=== PATIENT | female | born 1970 | race Caucasian/White ===

== ENCOUNTER 2017-11-03 08:30 | Outpatient (RCR) | payer OTHER, SELFPAY | END 2017-11-08 23:59 | LOC: DC 08:30 | PROVIDERS: Family Provider Preventive Medicine Occupational Medicine; PCP Preventive Medicine Occupational Medicine; Visit Provider Preventive Medicine Occupational Medicine | DX: E11.9 Type 2 diabetes mellitus without complications (principal); Z71.3 Dietary counseling and surveillance | CPT/HCPCS: 97802; G0108 ==

== ENCOUNTER 2018-01-22 11:00 | Outpatient (RCR) | payer OTHER, SELFPAY | END 2018-01-22 11:01 | LOC: DC 11:00 | PROVIDERS: Family Provider Preventive Medicine Occupational Medicine; PCP Preventive Medicine Occupational Medicine; Visit Provider Preventive Medicine Occupational Medicine | DX: E11.9 Type 2 diabetes mellitus without complications (principal); Z71.3 Dietary counseling and surveillance | CPT/HCPCS: 97803 ==

== ENCOUNTER → 2018-02-15 09:44 | Outpatient (CLI) | payer OTHER, SELFPAY ==
--- NOTE | 2018-02-15 09:44 | DT_ITS ---
This patient was seen during an EMR downtime February 12, 2018 - February 19, 2018. This patient may have a combination of paper and electronic documentation or all paper documentation. All documentation is viewable within the e-chart portion of [facility] for each patient visit.
--- NOTE | 2018-02-15 09:50 | RAD_ITS ---
STUDY: X-RAY - THORACIC SPINE REASON FOR EXAM: Female, 48 years old. pain mid to upper thoracic and to the right posteriorly x 1 month TECHNIQUE: 4 view(s) of the thoracic spine were obtained. COMPARISON: None. FINDINGS: Normal kyphosis of the thoracic spine. There is no substantial scoliosis. There is multilevel endplate spondylosis of the thoracic vertebrae. There is multilevel disc space narrowing of the thoracic spine. There are multiple metallic clips in the right upper quadrant. This is consistent for a cholecystectomy. The soft tissue structures are unremarkable. RAD/Thoracic Spine 3 Views IMPRESSION: Mild degenerative findings in the thoracic spine. No acute fractures. Electronically Signed: Bunny Vergara MD at 18:05 EDT , Service support ,
--- NOTE | 2018-02-15 09:54 | RAD_ITS ---
STUDY: X-RAY CHEST REASON FOR EXAM: Female, 48 years old. Mid upper thoracic pain TECHNIQUE: Frontal and lateral views of the chest. COMPARISON: None. FINDINGS: The lungs are clear and expanded. There is no demonstrated pleural abnormality. Normal size heart. Normal mediastinum and avis. Normal visualized pulmonary arteries. Normal visualized aortic arch and descending thoracic aorta. Normal visualized thoracic spine. Normal visualized ribs, clavicles, and shoulders. There is no demonstrated abnormality of the visualized soft tissue structures of the upper abdomen. RAD/Chest PA and Lateral IMPRESSION: Normal x-ray examination of the chest. Electronically Signed: Bunny Vergara MD at 18:05 EDT , Service support ,
[2018-02-20 03:37] LABS: BUN 13 mg/dL (7-18); BUN/Creat Ratio 13.3 RATIO (10-20); Creatinine, Serum 0.98 mg/dL (0.55-1.02); EST Glomerular Filtration Rate 64 mL/min (>60); Est Glom Filt Rate - Afr Amer 78 mL/min (>60); Glucose 119 mg/dL (74-106); Sodium Level 139 mmol/L (136-145)
[2018-02-20 03:38] LABS: Anion Gap 8 (5-15); Chloride 103 mmol/L (98-107); Potassium 3.7 mmol/L (3.5-5.1)
[2018-02-20 03:47] LABS: Hemoglobin A1c 6.9 % (4.2-6.3)
[2018-02-20 03:48] LABS: Color, Urine Yellow (Yellow); Glucose, Dipstick NEGATIVE (Normal); Ketone-Dipstick Negative (Negative); Leukocyte Esterase-Dipstick 25 /ul (Negative); Nitrite-Dipstick Negative (Negative); Occult Blood-Urine Negative /ul (Negative); Protein-Dipstick 30 mg/dl (Negative); Urine Bilirubin Dipstick Negative (Negative); Urine Clarity Clear (Clear); Urine Urobilinogen Normal (Normal)
== END ==
PROVIDERS: Family Provider Family Medicine; PCP Family Medicine; Visit Provider Family Medicine
DX: R07.9 Chest pain, unspecified (principal); M54.9 Dorsalgia, unspecified; E11.9 Type 2 diabetes mellitus without complications; N39.0 Urinary tract infection, site not specified
CPT/HCPCS: 71046; 72072; 80048; 81002; 83036

== ENCOUNTER 2018-02-21 17:08 | Outpatient (RCR) | payer OTHER, SELFPAY | END 2018-03-10 23:59 | LOC: DC 17:08 | PROVIDERS: Family Provider Family Medicine; PCP Family Medicine; Visit Provider Preventive Medicine Occupational Medicine | DX: E11.9 Type 2 diabetes mellitus without complications (principal); Z71.3 Dietary counseling and surveillance ==

== ENCOUNTER → 2018-02-22 12:35 | Outpatient (CLI) | payer OTHER, SELFPAY | PROVIDERS: Family Provider Family Medicine; PCP Family Medicine; Visit Provider Family Medicine | DX: R35.8 Other polyuria (principal) | CPT/HCPCS: 87086; 87088; 87186 ==

== ENCOUNTER → 2018-02-28 13:47 | Outpatient (CLI) | payer OTHER, SELFPAY ==
[2018-02-28 13:54] LABS: Bacteria 0 SEEN /hpf (None Seen); Red Blood Cells-Urine 0 SEEN /hpf (0-5); White Blood Cells 0 SEEN /hpf (0-5)
[2018-02-28 14:30] LABS: Color, Urine Yellow (Yellow); Glucose, Dipstick Normal (Normal); Ketone-Dipstick Negative (Negative); Leukocyte Esterase-Dipstick Negative /ul (Negative); Nitrite-Dipstick Negative (Negative); Occult Blood-Urine Negative /ul (Negative); Protein-Dipstick Negative (Negative); Specific Gravity, Urine 1.015 (1.002-1.030); Urine Bilirubin Dipstick Negative (Negative); Urine Clarity Clear (Clear); Urine Urobilinogen Normal (Normal)
[2018-02-28 14:43] LABS: Mucous, Urine 0 SEEN /hpf (<or=2+)
[2018-02-28 14:45] LABS: Squamous Epithelial Cells - UA 5-10 SEEN /hpf (5-10)
== END ==
PROVIDERS: Family Provider Family Medicine; PCP Family Medicine; Visit Provider Family Medicine
DX: N39.0 Urinary tract infection, site not specified (principal); R30.0 Dysuria
CPT/HCPCS: 36415; 81001; 87086; 87088

== ENCOUNTER 2018-03-21 16:06 | Outpatient (RCR) | payer OTHER, SELFPAY | END 2018-04-10 23:59 | LOC: DC 16:06 | PROVIDERS: Family Provider Family Medicine; PCP Family Medicine; Visit Provider Preventive Medicine Occupational Medicine | DX: E11.9 Type 2 diabetes mellitus without complications (principal); Z71.3 Dietary counseling and surveillance ==

== ENCOUNTER → 2018-03-30 13:39 | Outpatient (CLI) | payer OTHER, SELFPAY ==
--- NOTE | 2018-03-30 13:42 | US_ITS ---
STUDY: RENAL ULTRASOUND - COMPLETE REASON FOR EXAM: Female, 48 years old. Flank pain and recurrent UTI. TECHNIQUE: Ultrasound evaluation of the kidneys was performed with real-time and static nelson-scale imaging. COMPARISON: None. FINDINGS: RIGHT KIDNEY: Normal location of the right kidney, which is normal in size. The right kidney measures 10.2 x 5.8 x 4.9 cm. There is a normal cortex of the right kidney. The renal cortex measures 1.3 cm. There is no right renal mass or cyst. There are no right renal calculi. There is no right hydronephrosis. DISTAL RIGHT URETER: There is non-visualization of the distal right ureter. There is a visualized right ureteral jet. LEFT KIDNEY: Normal location of the left kidney, which is normal in size. The left kidney measures 10.8 x 4.2 x 5.8 cm. There is a normal cortex of the left kidney. The renal cortex measures 1.4 cm. There is no left renal mass or cyst. There are no left renal calculi. There is no left hydronephrosis. DISTAL LEFT URETER: There is non-visualization of the distal left ureter. There is a visualized left ureteral jet. BLADDER: The distended urinary bladder has a volume of 264 ml. There is a normal wall thickness of the distended urinary bladder. There is no demonstrated mass within the urinary bladder. There are no demonstrated bladder calculi. US/Kidney and Bladder IMPRESSION: Normal ultrasound of the kidneys and urinary bladder. Electronically Signed: Marga Esteban MD at 23:50 EDT , Service support ,
[2018-03-30 14:06] LABS: Bacteria 0 SEEN /hpf (None Seen); Mucous, Urine 0 SEEN /hpf (<or=2+); Red Blood Cells-Urine 0 SEEN /hpf (0-5); White Blood Cells 0 SEEN /hpf (0-5)
[2018-03-30 15:18] LABS: Color, Urine Yellow (Yellow); Glucose, Dipstick Normal (Normal); Ketone-Dipstick Negative (Negative); Leukocyte Esterase-Dipstick Negative /ul (Negative); Nitrite-Dipstick Negative (Negative); Occult Blood-Urine Negative /ul (Negative); Protein-Dipstick Negative (Negative); Urine Bilirubin Dipstick Negative (Negative); Urine Clarity Clear (Clear); Urine Urobilinogen Normal (Normal); Urine pH 6.5 (5.0 - 8.0)
[2018-03-30 15:25] LABS: Squamous Epithelial Cells - UA 5-10 SEEN /hpf (5-10)
== END ==
PROVIDERS: Family Provider Family Medicine; PCP Family Medicine; Visit Provider Family Medicine
DX: N39.0 Urinary tract infection, site not specified (principal)
CPT/HCPCS: 76770; 81001

== ENCOUNTER → 2018-06-29 07:55 | Outpatient (CLI) | payer OTHER, SELFPAY ==
--- NOTE | 2018-06-29 07:57 | BI_ITS ---
MAMMOGRAPHY - BILATERAL SCREENING REASON FOR EXAM: Female, 48 years old. Routine annual screening examination. PERTINENT HISTORY: Non-contributory. TECHNIQUE: Digital bilateral breast elizabeth (3D mammographic acquisition) in the CC and MLO projections. 2-D mediolateral oblique (MLO) and craniocaudad (CC) views of both breasts were obtained. CAD: Full Field Digital Mammography with Computer Added Detection was performed. COMPARISON: Comparison is made with prior study dated June 17, 2017 and February 24, 2015. FINDINGS: Breast Composition: The breasts are heterogeneously dense, which may obscure small masses. There are no dominant masses or suspicious calcifications. Stable small bilateral axillary lymph nodes. No other significant abnormalities are identified. There has been no significant change since the prior study. BI/SCREENING MAMM (CAD), BILAT IMPRESSION: Stable bilateral screening mammogram. Yearly follow-up mammogram recommended. (A) ASSESSMENT CATEGORY: BIRADS Category 2: Benign. A letter regarding these results will be sent to the patient by the facility within 30 days. Approximately 10% of breast cancers are not detected by mammography. A normal mammogram should not delay biopsy of a clinically suspicious abnormality. [id number] Electronically Signed: Raul Dodge MD at 11:20 EDT Tel [phone], Service support ,
== END ==
PROVIDERS: Family Provider Family Medicine; PCP Family Medicine; Visit Provider Obstetrics & Gynecology
DX: Z12.31 Encounter for screening mammogram for malignant neoplasm of breast (principal)
CPT/HCPCS: 77063; 77067

== ENCOUNTER → 2018-08-14 15:22 | Outpatient (CLI) | payer OTHER, SELFPAY ==
[2018-06-19 16:20] VITALS: BMI 40.7
--- NOTE | 2018-08-14 15:25 | RAD_ITS ---
STUDY: X-RAY - RIGHT SHOULDER REASON FOR EXAM: Female, 48 years old. Chronic shoulder pain. TECHNIQUE: 3 view(s) of the shoulder. COMPARISON: None. FINDINGS: Normal glenohumeral articulation. Normal acromioclavicular joint. Normal acromion. Normal humeral head and visualized proximal humerus. The soft tissue structures are unremarkable. There is no demonstrated fracture. Normal visualized pulmonary apex. RAD/Shoulder min 2 Views IMPRESSION: Normal x-ray examination of the shoulder. Electronically Signed: Brendan Mccann MD at 16:44 EST , Service support ,
== END ==
PROVIDERS: Family Provider Family Medicine; PCP Family Medicine; Referring Provider Orthopaedic Surgery; Visit Provider Orthopaedic Surgery
DX: M25.511 Pain in right shoulder (principal)
CPT/HCPCS: 73030

== ENCOUNTER 2018-09-20 18:00 | Outpatient (RCR) | payer OTHER, SELFPAY ==
--- NOTE | 2018-08-24 08:23 | HP.PTEVAL ---
Patient's Visit Information GABRIEL WADE is a 48 year old F referred to Physical Therapy by Domonique Hoang DO with a diagnosis of R shoulder impingement. Date of Evaluation: 08/24/18 Physical Therapist: Bunny Sosa PT, ATC - Visit Plan Frequency: 2-3x /Week Duration: 4 Weeks Plan: R shoulder strengthening (rot cuff), scap stab ex's, UBE, and HEP - Subjective Findings: Pt reports her R shoulder has been sore for months. Pt reports her pain eventually became so sore that she couldnt sleep. Pt reports her pain haed an insidious onset in nature. 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 Pt reports she had an injection about a week ago in her R shoulder which did decrease her pain, but she is still sore. Pt is R hand dominant. Pt reports reaching behind her back and lifing objects with R UE increases her pain. Pt still has sleep difficulty at this time. Occasional tingling and numbness in L UE. Pt reports she did have xrays, but stated nothing was wrong. - Pain R shoulder pain Pain Intensity (Out of 10): 2 Pain Intensity Range: 3 - Objective Neuro: B UE sensation is WNL to light touch. B bicepital reflex= 2/3. Palpation: Pt is tender along the supraspinatus and bicepital reflex. ROM: R shoulder flex= 160, abd= 175, ER= 80, IR WNL; R shoulder flex= 140, abd= 125, ER= 60, IR moderately limited. MMT: R shoulder flexion and ER= 4-/5. All other B UE MMT= 5/5 throughout. Special testing: Pos empty can test and HK sign - Goals Goal 1:: Decrease R shoulder pain x 50% to aid with sleep Goal Time Frame: 2-4 Weeks Goal 2:: Increase R shoulder strength x 1 grade to aid with IADL's Goal Time Frame: 2-4 Weeks Goal 3:: Increase R shoulder ROM flexion and abduction x 15-20 degrees to aid with overhead lifting Goal Time Frame: 2-4 Weeks Goal 4:: I with HEP Goal Time Frame: 2-4 Weeks - Rehabilitation Potential Physical Therapy Diagnosis: R shoulder pain, weakness, and limited ROM secondary to R shoulder impingement syndrome Rehabilitation Potential: Good - Anticipated Interventions Patient/Client Instruction: Educate patient on: Condition, Plan of Care For the Purpose of:: To improve self management Therapeutic Exercise to Include: Strength training, Endurance training, Postural training, Active ROM, Scapular Strength/Stabilization For the Purpose of:: To decrease pain, To increase ROM, To improve muscle performance and motor function Cryotherapy (ice pack, ice massage): Yes For the Purpose of:: To decrease pain Thank you for the opportunity to evaluate your patient. For Medicare and Medicare HMO plans, please review the plan of care and approve it. It will need to be FAXED BACK to us at [phone] for Medicare purposes. For Medicare only, by signing this I certify the plan of care. Please let me know if there are questions or concerns regarding this plan of care. Physician Signature: Date:
--- NOTE | 2018-11-27 16:46 | HP.PT.NRP ---
HP - Discharge Summary (1) - Patient Information GABRIEL WADE was seen in my office for initial evaluation on 08/24/18. The following Plan of Care was established for this patient: Initial Frequency: 2-3x /Week Initial Duration: 4 Weeks - Anticipated Interventions Patient/Client Instruction: Educate patient on: Condition, Plan of Care For the Purpose of:: To improve self management Therapeutic Exercise to Include: Strength training, Endurance training, Postural training, Active ROM, Scapular Strength/Stabilization For the Purpose of:: To decrease pain, To increase ROM, To improve muscle performance and motor function Cryotherapy (ice pack, ice massage): Yes For the Purpose of:: To decrease pain This patient was last seen in our office . Pertinent comments regarding their Physical therapy will appear below: Pt has treated for 7 PT visits through the date of 09/20/18 for her pain. pt has not returned through todays date, and is therefore discontinued at this time At this point I will be discontinuing this patient from physical therapy. I would be happy to see this patient again in the future if found appropriate by the physician. Thank you! Bunny Sosa, PT, ATC
== END 2018-09-20 19:00 | disposition home or self-care (01) ==
LOC: PT 18:00
PROVIDERS: Family Provider Family Medicine; PCP Family Medicine; Referring Provider Orthopaedic Surgery; Visit Provider Orthopaedic Surgery
DX: M75.101 Unspecified rotator cuff tear or rupture of right shoulder, not specified as traumatic (principal); M75.21 Bicipital tendinitis, right shoulder; M75.41 Impingement syndrome of right shoulder
CPT/HCPCS: 97110; 97162

== ENCOUNTER → 2018-12-03 07:20 | Outpatient (CLI) | payer OTHER, SELFPAY ==
[2018-11-19 08:25] VITALS: BMI 39.3
--- NOTE | 2018-12-03 07:23 | MRI_ITS ---
STUDY: MRI RIGHT SHOULDER REASON FOR EXAM: Right shoulder/arm pain with limited range of motion for more than 6 months. TECHNIQUE: Standardized fat and water weighted pulse sequences were obtained in all 3 orthogonal planes. COMPARISON: Radiographs 08/14/2018. FINDINGS: There is supraspinatus tendinosis and a small full-thickness tear of the distal anterior supraspinatus tendon (T2 coronal image 14; T2 sagittal image 9) measuring approximately 0.3 cm in length and width with mild delamination (T2 coronal image 13). Normal infraspinatus tendon. Normal subscapularis tendon. Normal teres minor tendon. Normal supraspinatus muscle. Normal infraspinatus muscle. Normal subscapularis muscle. Normal teres minor muscle. There is a small glenohumeral joint effusion. There is a small cyst in the anterior aspect of the greater tuberosity. Normal biceps labral complex. Normal intracapsular long biceps tendon. Normal labrum. Normal capsulo- ligamentous complex. Normal acromioclavicular articulation. There is a Type II morphology (curved), with a neutral orientation. There is a small volume of subacromial-subdeltoid bursal fluid. Normal visualized coracohumeral and coracoacromial ligaments. Normal deltoid muscle. Normal trapezius muscle. MRI/Upper Ext Joint Only(Routine) IMPRESSION: Small full-thickness tear and tendinosis of the supraspinatus tendon. Glenohumeral joint fluid communicating with the subacromial-subdeltoid bursa. Electronically Signed: Power Cole MD at 10:52 EDT Tel , Service support ,
== END ==
PROVIDERS: Family Provider Family Medicine; PCP Family Medicine; Referring Provider Physician Assistant; Visit Provider Physician Assistant
DX: M25.511 Pain in right shoulder (principal)
CPT/HCPCS: 73221

== ENCOUNTER → 2018-12-07 14:54 | Outpatient (CLI) | payer OTHER, SELFPAY ==
[2018-11-19 08:25] VITALS: BMI 39.3
--- NOTE | 2018-12-07 14:56 | VDUE_ITS ---
Reason For Study: RUE pain/swelling Right Proximal Right jugular vein is spontaneous, widely patent, phasic, with no intraluminal echogenicity noted. Right subclavian vein is spontaneous, widely patent, phasic, with no intraluminal echogenicity noted. Right Lower Arm Right radial vein is compressible. Right ulnar vein is compressible. Right Arm Right axillary vein is spontaneous, patent, phasic, competent, compressible and demonstrates augmentation. Right brachial vein is compressible. Right cephalic vein is compressible. Right basilic vein is compressible. Interpretation Summary No evidence for acute deep venous thrombosis[right] upper extremity with patent and compressible cephalic and basilic veins. Ordering Physician: Juaquin Nuñez Referring Physician: Andre Acevedo M.D. Performed By: Karen Haque RVT ?
== END ==
PROVIDERS: Family Provider Family Medicine; PCP Family Medicine; Referring Provider Physician Assistant; Visit Provider Physician Assistant
DX: M79.89 Other specified soft tissue disorders (principal)
CPT/HCPCS: 93971

== ENCOUNTER → 2019-01-17 | Outpatient (CLI) | payer OTHER, SELFPAY ==
[2019-01-17 13:24] VITALS: BMI 39.3
--- NOTE | 2019-01-17 14:24 | RAD_ITS ---
STUDY: X-RAY - RIGHT HUMERUS REASON FOR EXAM: Right humeral pain and upper extremity edema, no specific injury. TECHNIQUE: 2 view(s) of the humerus. COMPARISON: None. FINDINGS: Normal visualized humerus. There is no demonstrated fracture or osseous destructive process. There is no demonstrated soft tissue abnormality. RAD/Humerus min 2 Views IMPRESSION: Normal x-ray examination of the right humerus. Electronically Signed: Power Cole MD at 15:22 EDT Tel , Service support ,
--- NOTE | 2019-01-17 14:37 | RAD_ITS ---
STUDY: X-RAY CHEST REASON FOR EXAM: Female, 48 years old. Chest pain, upper extremity edema TECHNIQUE: PA and lateral views of the chest. COMPARISON: 02/15/2018 FINDINGS: The lungs are clear and expanded. There is no demonstrated pleural abnormality. Normal size heart. Normal mediastinum and avis. Normal visualized pulmonary arteries. Normal visualized aortic arch and descending thoracic aorta. Normal visualized thoracic spine. Normal visualized ribs, clavicles, and shoulders. There is no demonstrated abnormality of the visualized soft tissue structures of the upper abdomen. RAD/Chest PA and Lateral IMPRESSION: Normal x-ray examination of the chest. Electronically Signed: Eric Villavicencio MD at 15:41 EDT , Service support ,
== END | disposition home or self-care (01) ==
LOC: HPRAD 14:19
PROVIDERS: Family Provider Family Medicine; PCP Family Medicine; Referring Provider Orthopaedic Surgery; Visit Provider Orthopaedic Surgery
DX: R60.0 Localized edema (principal); M79.89 Other specified soft tissue disorders
CPT/HCPCS: 71046; 73060

== ENCOUNTER → 2019-01-18 | Outpatient (CLI) | payer OTHER, SELFPAY ==
[2019-01-17 13:24] VITALS: BMI 39.3
--- NOTE | 2019-01-18 16:31 | US_ITS ---
STUDY: SUPERFICIAL ULTRASOUND - SOFT TISSUES, RIGHT AXILLA REASON FOR EXAM: Female, 48 years old. Right axillary swelling, right arm swelling, 8 months TECHNIQUE: A superficial ultrasound was performed with real-time and static santana-scale imaging. COMPARISON: None. FINDINGS: Normal sonographic features of the axillary soft tissues. There is no mass, lymphadenopathy or fluid collection. There is no apparent soft tissue edema. On color Doppler imaging there is no apparent hyperemia in the soft tissues. US/Ext Non Vasc Limited/Soft Tiss IMPRESSION: Normal sonographic features of the axillary soft tissues. Electronically Signed: Niles Carrillo MD at 17:52 EDT Tel , Service support ,
[2019-01-18 17:28] LABS: Absolute Lymphocyte Count 2.44 X10^3/ul (0.83-4.51); Absolute Neutrophil Count 8.2 X10^3/uL (2.0-7.7); Basophil# 0.01 X10^3/uL; Basophil% 0.1 % (0-1); Eosinophil# 0.11 X10^3/uL; Hematocrit 42.7 % (37-47); Hemoglobin 14.1 g/dl (12.0-15.0); Lymphocyte # 2.44 X10^3/ul (4.0); Lymphocyte % 21.6 % (19-41); Mean Corpuscular Hgb 28.2 pg (27.0-32.0); Mean Corpuscular Volume 85.4 fL (81-99); Mean Platelet Vol. 11.5 fl (6.2-12.0); Monocyte# 0.55 X10^3/uL; Monocyte% 4.9 % (0-10); Neutrophil # 8.19 X10^3/uL (2.7-7.7); Neutrophil % 72.2 % (47-70); Platelet Count 277 K/mm3 (150-450); RBC Distribution Width CV 13.1 % (11.6-14.6); RBC Distribution Width SD 40.9 fl (35.1-43.9); White Blood Count 11.3 K/mm3 (4.4-11.0)
[2019-01-18 17:29] LABS: POSITIVE COUNT NO; POSITIVE DIFFERENTIAL NO; POSITIVE MORPHOLOGY NO
[2019-01-18 17:36] LABS: Erythrocyte Sedimentation Rate 24 mm/hr (0-20)
[2019-01-18 18:07] LABS: ALB/GLOB Ratio 0.9 RATIO (0.9-2.4); AST(SGOT) 15 U/L (15-37); Alanine Aminotransfer ALT/SGPT 56 U/L (13-56); Albumin, Serum 3.7 g/dL (3.2-5.0); Alkaline Phosphatase 66 U/L (45-117); Anion Gap 7 (5-15); BUN 11 mg/dL (7-18); BUN/Creat Ratio 11.6 RATIO (10-20); Chloride 104 mmol/L (98-107); Creatinine, Serum 0.95 mg/dL (0.55-1.02); EST Glomerular Filtration Rate 66 mL/min (>60); Est Glom Filt Rate - Afr Amer 80 mL/min (>60); Glucose 137 mg/dL (74-106); Potassium 3.2 mmol/L (3.5-5.1); Protein, Total 7.7 g/dL (6.4-8.2); Sodium Level 140 mmol/L (136-145); T4 Free Direct 1.09 ng/dL (0.76-1.46)
== END | disposition home or self-care (01) ==
PROVIDERS: Orthopaedic Surgery; Family Provider Family Medicine; PCP Family Medicine; Referring Provider Internal Medicine; Visit Provider Internal Medicine
DX: M79.89 Other specified soft tissue disorders (principal)
CPT/HCPCS: 36415; 76882; 80053; 84439; 84443; 85025; 85652; 86140

== ENCOUNTER → 2019-01-30 | Outpatient (CLI) | payer OTHER, SELFPAY ==
[2019-01-24 10:43] VITALS: BMI 39.3
--- NOTE | 2019-01-30 09:22 | US_ITS ---
STUDY: ULTRASOUND BREAST - RIGHT REASON FOR EXAM: Female, 49 years old. Palpable lump in the right breast. TECHNIQUE: Axial and longitudinal images of the RIGHT breast were performed with a high resolution ultrasound transducer. COMPARISON: Comparison is made with prior mammogram done earlier today. FINDINGS: RIGHT Breast: In the upper outer quadrant of the right breast, there are 3 subcentimeter slightly echogenic well-defined nodular densities. The largest measures 7 mm x 7 mm x 6 mm. These most likely represent lipomas. IMPRESSION: Findings in keeping with the 3 well-defined subcentimeter lipomas in the upper outer quadrant of the right breast. ASSESSMENT CATEGORY: BIRADS Category 2: Benign. A letter regarding these results will be sent to the patient by the facility within 30 days. Electronically Signed: Raul Dodge, at 13:05 EDT , Service support , STUDY: ULTRASOUND BREAST - LEFT REASON FOR EXAM: Female, 49 years old. Palpable lump left breast. TECHNIQUE: Axial and longitudinal images of the LEFT breast were performed with a high resolution ultrasound transducer. COMPARISON: Comparison is made with prior mammogram done earlier today. FINDINGS: LEFT Breast: There is a 5 mm x 7 mm x 5 mm well-defined hypoechoic nodule in the upper outer quadrant of the left breast. Adjacent to this, a similar appearing nodule is seen measuring 6 mm x 5 mm x 3 mm. These most likely represent lipomas. US/Breast Limited Unilateral IMPRESSION: Findings in keeping with that to subcentimeter lipomas in the upper aspect of the left breast. ASSESSMENT CATEGORY: BIRADS Category 2: Benign. A letter regarding these results will be sent to the patient by the facility within 30 days. Electronically Signed: Raul Dodge, at 13:06 EDT , Service support ,
--- NOTE | 2019-01-30 09:22 | BI_ITS ---
MAMMOGRAPHY - BILATERAL DIAGNOSTIC REASON FOR EXAM: Female, 49 years old. Right axillary breast pain and swelling. PERTINENT HISTORY: Non-contributory. TECHNIQUE: Digital bilateral breast elizabeth (3D mammographic acquisition) in the CC and MLO projections. 2-D mediolateral oblique (MLO) and craniocaudad (CC) views of both breasts were obtained. CAD: Full Field Digital Mammography with Computer Added Detection was performed. COMPARISON: Comparison is made with prior examination dated June 29, 2018 and June 17, 2007. FINDINGS: Breast Composition: The breasts are heterogeneously dense, which may obscure small masses. There are no dominant masses or suspicious calcifications. Stable small benign-appearing bilateral axillary lymph nodes. No other significant abnormalities are identified. There has been no significant change since the prior study. BI/DIAG MAMM W/CAD, BILAT IMPRESSION: Stable bilateral diagnostic mammogram. With the patient's history of a right axillary pain and swelling, correlation with ultrasound is recommended. ASSESSMENT CATEGORY: BIRADS Category 0: Incomplete. Need additional imaging evaluation. A letter regarding these results will be sent to the patient by the facility within 30 days. Approximately 10% of breast cancers are not detected by mammography. A normal mammogram should not delay biopsy of a clinically suspicious abnormality. Electronically Signed: Raul Dodge, at 11:21 EDT , Service support ,
== END | disposition home or self-care (01) ==
PROVIDERS: Family Provider Family Medicine; PCP Family Medicine; Referring Provider Obstetrics & Gynecology; Visit Provider Obstetrics & Gynecology
DX: N63.31 Unspecified lump in axillary tail of the right breast (principal); N63.21 Unspecified lump in the left breast, upper outer quadrant
CPT/HCPCS: 76642; 77062; 77066; G0279

== ENCOUNTER → 2019-01-31 | Outpatient (CLI) | payer OTHER, SELFPAY ==
[2019-01-24 10:43] VITALS: BMI 39.3
--- NOTE | 2019-01-31 06:34 | MRI_ITS ---
STUDY: MRI UPPER EXTREMITY RIGHT HUMERUS WITHOUT CONTRAST REASON FOR EXAM: Right arm swelling, no specific injury. TECHNIQUE: Standardized fat and water weighted pulse sequences were obtained in all 3 orthogonal planes. COMPARISON: Radiographs 01/17/2019 and MRI images the shoulder 12/03/2018. FINDINGS: Normal subcutis adipose space. There is no demonstrated solid, cystic, or lipomatous mass within the subcutaneous adipose space. There is a benign appearing lymph node in the right axilla measuring 1.4 cm in greatest dimension with central fat replacement (T1 axial image 14). Normal visualized muscles and fascia. Normal visualized neurovascular bundles. There is a small cyst in the anterior aspect of the greater tuberosity (inversion recovery axial image 3). Otherwise, unremarkable humerus. MRI/Upper Ext/No Jt/ wo IMPRESSION: Benign appearing lymph node in the right axilla. Small cyst in the anterior aspect of the greater tuberosity. Otherwise, unremarkable MRI of the right humerus. Electronically Signed: Power Cole MD at 8:49 EDT Tel , Service support ,
== END | disposition home or self-care (01) ==
LOC: MRI 06:33
PROVIDERS: Family Provider Family Medicine; PCP Family Medicine; Referring Provider Physician Assistant; Visit Provider Physician Assistant
DX: M75.81 Other shoulder lesions, right shoulder (principal); M79.89 Other specified soft tissue disorders; M75.21 Bicipital tendinitis, right shoulder
CPT/HCPCS: 73218

== ENCOUNTER → 2019-02-14 | Outpatient (CLI) | payer OTHER, SELFPAY ==
[2019-02-13 15:39] VITALS: BMI 40.1
--- NOTE | 2019-02-14 13:37 | VDUE_ITS ---
Reason For Study: Swelling Right Proximal Right jugular vein is spontaneous, widely patent, phasic, with no intraluminal echogenicity noted. Right subclavian vein is spontaneous, widely patent, phasic, with no intraluminal echogenicity noted. Right Lower Arm Right radial vein is compressible. Right ulnar vein is compressible. Right Arm Right axillary vein is spontaneous, patent, phasic, competent, compressible and demonstrates augmentation. Right brachial vein is compressible. Right cephalic vein is compressible. Right basilic vein is compressible. Patient Safety Prelim to Sarthak. Interpretation Summary No evidence for acute deep venous thrombosis[right] upper extremity with patent and compressible cephalic and basilic veins. Ordering Physician: Anthony De León Referring Physician: Andre Acevedo M.D. Performed By: Denisha Cardoza RVT ?
--- NOTE | 2019-02-14 14:04 | CT_ITS ---
STUDY: CT CHEST WITH CONTRAST REASON FOR EXAM: Female, 49 years old. Chronic swelling of the right upper extremity. RADIATION DOSAGE (If Supplied By Facility): CTDIvol = ( 13.40 ) mGy, DLP = ( 728.33 ) mGycm TECHNIQUE: Transaxial imaging was performed following intravenous administration of 100ml IV Isovue 370. Multiplanar coronal and sagittal images were reformatted. Individualized dose optimization techniques were used for this CT. COMPARISON: None. FINDINGS: Small bilateral axillary lymph nodes. The lungs are normal. There is no demonstrated pleural abnormality. Normal heart and pericardium. Normal mediastinum. Normal hilar regions. Normal enhanced pulmonary arteries. Normal aorta arch and descending thoracic aorta. Normal osseous structures. Diffuse fatty infiltration of the liver. Prior cholecystectomy. CT/Chest WITH Contrast IMPRESSION: No acute abnormalities Electronically Signed: Raul Dodge, at 15:07 EDT , Service support ,
== END | disposition home or self-care (01) ==
PROVIDERS: Family Provider Family Medicine; PCP Family Medicine; Referring Provider Surgery; Visit Provider Surgery
DX: M79.89 Other specified soft tissue disorders (principal)
CPT/HCPCS: 71260; 93971; Q9967

== ENCOUNTER 2019-02-27 05:59 | Day surgery (SDC) | payer OTHER, SELFPAY ==
[2019-02-07 16:30] VITALS: BMI 40.1
[2019-02-13 15:39] VITALS: BMI 40.1
--- NOTE | 2019-02-26 15:19 | HP.PCM_ITS ---
History and Physical I have re-examined the patient. There are no clinical changes since date of exam. Intake Vital Signs 02/07/19 Body Mass Index (BMI) 40.1 Intake Visit Reasons: R. SHOULDER Chief Complaint: FU - Testing & saw Dr Lewis Allergies metoclopramide [From Reglan] Adverse Reaction (Verified 01/31/19 15:07) NIGHTMARES Medications hydrochlorothiazide 25 mg tablet 25 mg PO DAILY #90 tab 10/18/18 [Rx Confirmed 01/31/19] lorazepam 0.5 mg tablet 0.5 mg PO BID-TID PRN #7 tab 11/07/18 [Rx Confirmed 01/31/19] dulaglutide 1.5 mg/0.5 mL subcutaneous pen injector 1.5 mg SC QWEEK #2 ml 12/16/18 [Rx Confirmed 01/31/19] PFSH Medical History Family history of colon cancer (Acute) Polyuria (Chronic) Cough (Acute) Vertigo (Acute) Dizziness (Chronic) Menorrhagia (Chronic) Bronchitis (Chronic) Hypertension (Chronic) Fear of flying (Chronic) Type 2 diabetes mellitus (Chronic) History of hysterectomy (Acute) Surgical History History of cholecystectomy (Acute) History of tubal ligation (Acute) Family History Father Hypertension Grandmother Heart disease Grandfather Colon cancer Uncle Colon cancer Aunt Diabetes Social History Smoking Status: Never smoker alcohol intake: current alcohol intake frequency: holidays/special occasions only HPI R. SHOULDER: Details: Parts of this documentation were recorded by a scribe, this docume ntation accurately reflects the service provided and the decisions made by me, Domonique Hoang, 02/07/19 1548. GABRIEL WADE is a 49 year old F here today for right shoulder. Patient had MRI on 01/31/19. Denies any changes. Continues to have shoulder pain and limited ROM. Continues to have itching under are arms. Continues to have swelling. Patient returned to her PCP and then was referred to Dr. Lewis for a 2nd opinion. Dr. Lewis then ordered a mammogram and ultra sound and patient informed she does not have cancer. She has 4 benign tumors of her right breast. Continues to have pain under shoulder blade. Ortho Exam Right Shoulder Skin/Wound: No ecchymosis, No erythema, Yes swelling Testing: Positive Drop Arm SHOULDER: right arm biceps circumference measures 41cm vs left arm being 39cm. Assessment & Plan Problems 1. Traumatic complete tear of right rotator cuff, subsequent encounter S46.011D 2. Primary osteoarthritis of right shoulder M19.011 Plan Reviewed MRI of right shoulder. Patient educated that it did show a benign lymph node that is 1.4cm along with a full-thickness tear of her RTC with possible biceps tear. Educated that her arm swelling may be from under use of her right arm because she is compensating d/t the pain. Informed that her itching may be some folliculitis d/t not using the shoulder has well. MRI does not show any fluid build up. Her sed rate and CRP are slightly elevated which indicates inflammation more than likely from the RTC tear. Educated that the MRI also showed mild OA of her shoulder. Treatment options included do nothing or surgery to repair RTC, subacromial decompression and possibly biceps tenotomy. Patient wishes to proceed with surgical options. Reviewed the pre-operative plans with the patient. Risks and benefits of the pro cedure were fully explained, including but not limited to infection, neurovascular injury, continued pain, arthritis, stiffness, need for further surgery, re-injury, DVT, PE, general risks of anesthesia, and loss of limb or life. The patient understands all the risks and does wish to proceed with written consent. Educated that she will be in a sling with restrictions for at least [address] while wearing sling. She will be able to preform elbow ROM but no AROM of the shoulder for 6 weeks. I will F/U with Dr. Acevedo and Dr. Lewis prior to preforming surgery then we will place patient on surgery schedule. Follow up 2 weeks post op or sooner if pain, swelling, numbness or associated symptoms, or concerns develop. All questions answered. Patient in agreement of plan. Coding Diagnoses Traumatic complete tear of right rotator cuff, subsequent encounter S46.011D Encounter type: subsequent encounter Rotator cuff tear trauma status: traumatic Primary osteoarthritis of right shoulder M19.011 Osteoarthritis type: primary
[2019-02-27] VITALS (10 sets, daily range): BP systolic 113–167; BP diastolic 77–106; PULSE 81–104; RESP 14–18; TEMP 36.4–37.2; O2SAT 92–98; BMI 39.9
[2019-02-27 06:55] LABS: Bedside Glucose 128 mg/dL (70-110)
--- NOTE | 2019-02-27 07:23 | DCINST_ITS ---
Discharge Diet: No Restrictions - May remove dressings in 4 days and applying Band-Aids to incision sites, may get incision wet to after 4 days, may remove sling to extend elbow, no active flexion of elbow or shoulder, follow-up in 2 weeks for initiation of physical therapy and removal of sutures, call with concerns, sling at all times unless showering Discharge Activity: May Not Drive May shower in (days): 1 Ice area for (Minutes): 20 - Every hour while awake. Weight Bearing Status: Weight bearing as tolerated Keep extremity elevated above heart level: Operative Extremity Call your doctor if your incision/area has: Continuous Slow Oozing, Sudden Increased Bleeding, Increased Pain/ Swelling, Increased Redness, Foul Smelling Discharge Call your doctor if you observe: Fever of 101 or Higher, Coldness, Increased Pain, Numbness or Tingling, Change in Color, Calf discomfort Allergies/Adverse Reactions: Allergies metoclopramide [From Reglan] Adverse Reaction (Verified 02/20/19 09:49) NIGHTMARES Medications to take at Discharge hydrochlorothiazide 25 mg tablet 25 mg PO DAILY #90 tab 10/18/18 lorazepam 0.5 mg tablet 0.5 mg PO BID-TID PRN #7 tab 11/07/18 dulaglutide 1.5 mg/0.5 mL subcutaneous pen injector 1.5 mg SC QWEEK #2 ml 02/10/19 Oxycodone HCl/Acetaminophen [Percocet 5/325] 1 - 2 tab PO Q6H PRN PRN 5 Days #28 tab 02/27/19 Zolpidem Tartrate [Ambien (Generic)] 5 mg PO QHS PRN PRN #14 tab 02/27/19 The following prescriptions were given: Zolpidem Tartrate [Ambien (Generic)] 5 mg PO QHS PRN PRN #14 tab PRN Reason: Insomnia Transmission Status: Received by [facility] Oxycodone HCl/Acetaminophen [Percocet 5/325] 1 - 2 tab PO Q6H PRN PRN 5 Days #28 tab PRN Reason: Pain Transmission Status: Received by [facility] Primary Care Physician: Otis Acevedo DO [Primary Care Provider] - Test Results: Test results from this visit will be discussed in further detail at your follow- up appointment, if applicable. Please Follow Up With: Domonique Hoang DO - [phone]
--- NOTE | 2019-02-27 07:25 | PCM.OPRPT ---
Report of Operation Date of Procedure: 02/27/19 Pre-Operative Diagnosis: RIGHT SHOULDER rotator cuff tear, biceps tendinosis, subacromial impingement Post-Operative Diagnosis: Same Surgery/Procedure Performed:: Right shoulder arthroscopy, rotator cuff repair, subacromial decompression/acromioplasty, open subpectoral biceps tenodesis 411 directory assistance operator: Juaquin Nuñez Type of Anesthesia:: General, Local Anesthesiologist: Emeterio Tirado Estimated Blood Loss (mL): minimal Fluids Replaced: 1000ml lr Description of Procedure: Preop note Next Patient is a 49-year-old female with continued right shoulder pain despite conservative treatment. MRI confirms rotator cuff tear. Patient had swelling of her right upper extremity which was thoroughly evaluated known to be probably more likely to be chronic in nature than an acute there is no signs of breast cancer on mammogram there is CT chest was negative ultrasound was negative for blood clot etc. Patient was cleared by general surgery and her primary care doctor did her right shoulder arthroscopy repair is indicated. Operative note next Patient seen and examined preoperative holding area. Right arm was marked. Patient brought to the operating placed supine on the operating table. Sign, anesthesia, antibiotics were measured with the patient was placed in beachchair positioning detention through we did recheck oblique her blood pressure which was stable throughout. All bony prominences well-padded SCDs placed on her constant on her bilateral lower extremity. We then prepped and draped the right arm in usual sterile fashion. We marked out our bony landmarks for portal placement. Timeout was performed. We then insufflated the glenohumeral joint from the posterior aspect. Begin our diagnostic arthroscopy. Her subscap was torn in the anterior aspect we then inserted to create an anterior portal under direct visualization. We able to then perform a posterior humeral shaft and then doing so we noted that the leading edge in the superior edge of the supers subscapularis to nm was torn off of its insertion. We then debrided back to the insertion with accommodation of a shaver and a bur. We then whipstitched and fiber link the proximal edge of the subscap placed down to the footprint with a 4.5 bio composite push lock Arthrex anchor. We had good reduction of the subscap to its footprint at that time. We then visualize the rotator cuff tear which was a leading edge U-shaped configuration. We then moved to the subacromial space created a lateral portal under direct visualization she had extensive bursitis especially posteriorly which was resected combination of a shaver and an ablator wand just had a sharp anterior lateral edge of her acromion which was debrided back with a bur. We then removed the bursa able to visualize our tear we then debrided the footprint with a combination of shaver and ablator and a bur we placed the 3 bridge implant system bio composite swivel lock was started 4.7 [address] Med[address] Row we did place one anchor at this point it was more anterior and placed 2 Lateral Row anchors we had a little bit of the dog ear were able to reduce it with a second lateral ankle that was placed to the fiber take in the anterior and the dog is brought down to another lateral row anchor and this completely resolved any dog ear. Please note that when we are intra-articular we did visualize the biceps tendon which was thickened and hyperemic it was truncated at its insertion on the labrum. We moved to our open biceps tenodesis the area was prepped and draped in the way to the allotted time. We then made about a 2-1/2 3 cm incision just inferior to the pec insertion dissected down with time at the level of the biceps biceps was brought out of the incision truncated at approximat length. We then was switched to and placed through the pec by pack repair Arthrex system we then drilled unicortical he after placing the ends of the whipstitched tendon through the button we placed that button through the into the shaft of the humeral humerus and then oversewed the ends with a free needle down to the periosteum further fixation. The incision was closed it was irrigated with copious muscle sterile saline. Was closed with deep 2-0 Vicryl in a running 4-0 Monocryl portals were closed with interrupted 4-0 nylon. The sterile dressing applied and patient was placed in a sling. Patient tolerated procedure well no complication transferred recovery room in stable condition. Postoperative note Patient is given to mom next Call with increased pain numbness tingling or further issues arise Hospital pharmacy has prescriptions as Follow-up in 2 weeks See discharge instruction Dragon disclaimer This note was generated with NewRiver dictation software. It may contain incorrect words, spelling, and punctuation that were not noted in checking the note before signing.
--- NOTE | 2019-02-27 07:30 | TESH_PTH ---
PATIENT: GABRIEL WADE LOC: [facility] [place] U#:[id number] AGE/SX: 49/F ROOM: RE02/27/[address]: Dr. Domonique Hoang DO : 1970 BED: DIS: 02/27/2019 SPEC #: [id number] RECD: 02/27/19 14:53 STATUS: TYRA RELandon #: [id number] MAGNUS: 02/27/19 07:[address]: Domonique Hoang DEPT: SURGICAL PATHOLOGY RECD BY: Darin George ENTERED: 02/28/19 09:43 SP TYPE: TENDON OTHR DR: Dr. Otis Acevedo, DO Tissues: Tendon and tendon sheath, NOS Procedures: Surgery Specimen Level III HEADER OPERATION: Arthroscopy, shoulder, rotator cuff repair, subacromial PRE-OP DIAGNOSIS: Traumatic complete tear of right rotator cuff, osteoarthritis TISSUE SUBMITTED: Right biceps tendon MICROSCOPIC DIAGNOSIS Right biceps tendon, rotator cuff repair: Fibrotendinous tissue and fibroadipose tissue showing reactive synovial changes, clinically traumatic complete tear of right rotator cuff. CE:diane 03/01/19 MICROSCOPIC DESCRIPTION Slides are reviewed. GROSS DESCRIPTION Received in fixative is one container labeled with the patient's name and designated biceps tendon. The specimen consists of two robison portions of fibrotendinous soft tissue. The larger portion measures 2.5 x 0.8 x 0.5 cm and the smaller portion measures 1.1 x 0.8 x 0.5 cm. The larger tendon portion has a clean cut end and the opposite end is thickened and slightly irregular. Beeswax Bleacher sections are submitted in one cassette. / CE:diane 02/28/19 TC:5 [facility]: [id number]
[2019-02-27] MEDS: Cefazolin 2 GM in 0.9% Normal Saline 100 ML IV (07:32)
[2019-02-27] MEDS: Epinephrine (1 mg/ml) 1 MG/ML VIAL (07:59)
[2019-02-27 08:05] LABS: Hemoglobin A1c 6.2 % (4.2-6.3)
[2019-02-27] MEDS: Mupirocin Ointment 22gm Tube 1 APPLIC (10:03)
[2019-02-27] MEDS: Bupiv/Epi 0.25% 30 ML Vial (10:03)
[2019-02-27 12:05] LABS: Bedside Glucose 184 mg/dL (70-110)
[2019-02-27] MEDS: HYDROcodone Bitartrate/Apap 5/325 Tablet PO (12:49)
== END 2019-02-27 15:11 | disposition home or self-care (01) ==
LOC: SDC 06:00 → AC 06:00
PROVIDERS: Anesthesiology; Family Provider Family Medicine; PCP Family Medicine; Referring Provider Orthopaedic Surgery; Visit Provider Orthopaedic Surgery
PROC: (CPT 29827; principal; 2019-02-27 07:10)
DX: S46.011A Strain of muscle(s) and tendon(s) of the rotator cuff of right shoulder, initial encounter (principal); X58.XXXA Exposure to other specified factors, initial encounter; Y92.9 Unspecified place or not applicable; M25.811 Other specified joint disorders, right shoulder; M75.21 Bicipital tendinitis, right shoulder; Z79.899 Other long term (current) drug therapy; Z79.4 Long term (current) use of insulin; I10 Essential (primary) hypertension; E11.9 Type 2 diabetes mellitus without complications; M19.011 Primary osteoarthritis, right shoulder; G25.81 Restless legs syndrome
CPT/HCPCS: 23430; 29826; 29827; 36415; 82962; 83036; 88304; J7120; J2405

== ENCOUNTER → 2019-04-19 | Outpatient (CLI) | payer OTHER, SELFPAY ==
[2019-04-19 10:19] VITALS: BMI 39.9
[2019-04-19 11:42] LABS: Bacteria 0 SEEN /hpf (None Seen); Mucous, Urine 0 SEEN /hpf (<or=2+); Red Blood Cells-Urine 0 SEEN /hpf (0-5)
[2019-04-19 12:29] LABS: Color, Urine Yellow (Yellow); Glucose, Dipstick Normal (Normal); Ketone-Dipstick 15 mg/dl (Negative); Leukocyte Esterase-Dipstick 500 /ul (Negative); Nitrite-Dipstick Positive (Negative); Occult Blood-Urine 10 /ul (Negative); Protein-Dipstick 30 mg/dl (Negative); Urine Clarity Sl. Cloudy (Clear); Urine Urobilinogen 4 mg/dl (Normal)
[2019-04-19 12:31] LABS: Urine Bilirubin Dipstick 3 mg/dL (Negative)
[2019-04-19 12:51] LABS: Microalbumin,Random Urine 20.1 mg/L (NO RANGE EST.); Microalbumin:Creatinine Ratio 12.7 mg/g CRE (<30 mg/g CRE)
[2019-04-19 13:10] LABS: Squamous Epithelial Cells - UA 5-10 SEEN /hpf (5-10); White Blood Cells 0-5 SEEN /hpf (0-5)
== END | disposition home or self-care (01) ==
LOC: BIMLAB 11:41
PROVIDERS: Family Provider Family Medicine; PCP Family Medicine; Visit Provider Nurse Practitioner Family
DX: E11.9 Type 2 diabetes mellitus without complications (principal)
CPT/HCPCS: 81001; 82043; 82570

== ENCOUNTER → 2019-08-10 08:26 | Outpatient (CLI) | payer OTHER, SELFPAY ==
[2019-07-19 08:07] VITALS: BMI 37.8
--- NOTE | 2019-08-10 08:28 | MRI_ITS ---
STUDY: MRI CERVICAL SPINE WITH AND WITHOUT CONTRAST REASON FOR EXAM: Female, 49 years old. Neck pain radiating into right shoulder. TECHNIQUE: Standardized fat and water weighted pulse sequences were obtained in the sagittal and axial following administration of IV Dotarem 20. COMPARISON: None FINDINGS: Normal foramen magnum and brainstem-cervical cord junction. Normal craniovertebral junction. Normal anterior atlantoaxial articulation. Normal odontoid process. Straightening of the C-spine curve. Normal vertebral bodies and posterior osseous elements. C2-3: Normal endplates. Normal disc height, signal and morphology. Normal central canal and intervertebral neural foramina. C3-4: Normal endplates. Normal disc height, signal and morphology. Normal central canal and intervertebral neural foramina. C4-5: Normal endplates. Normal disc height, signal and morphology. Normal central canal and intervertebral neural foramina. C5-6: Normal endplates. Normal disc height, signal and morphology. Normal central canal and intervertebral neural foramina. C6-7: Normal endplates. Normal disc height. Small posterior bulging disc. Normal central canal and intervertebral neural foramina. C7-T1: Normal endplates. Normal disc height, signal and morphology. Normal central canal and intervertebral neural foramina. T1-T2, T2-T3, T3-T4 and T4-T5: (Sagittal only). Normal endplates. Normal disc height and morphology. Normal central canal and intervertebral neural foramina. Normal cervical cord. Normal visualized soft tissue structures. No abnormal enhancing lesions intradurally and extradurally. MRI/Spine Cervical W/WO Contrast IMPRESSION: 1. Small C6-C7 posterior bulging disc. 2. No MRI evidence of cervical extruded disc fragment, spinal stenosis or cervical nerve root displacement. 3. Normal cervical spinal cord. 4. No abnormally enhancing lesions intradurally and extradurally. Electronically Signed: Ramu Jimenes MD at 14:43 EST , Service support ,
== END ==
PROVIDERS: Family Provider Family Medicine; PCP Family Medicine; Referring Provider Orthopaedic Surgery; Visit Provider Orthopaedic Surgery
DX: R20.0 Anesthesia of skin (principal); R20.2 Paresthesia of skin
CPT/HCPCS: 72156; A9575

== ENCOUNTER → 2019-08-16 13:15 | Outpatient (CLI) | payer OTHER, SELFPAY ==
[2019-07-19 08:07] VITALS: BMI 37.8
--- NOTE | 2019-08-16 17:59 | NEURO ---
NCS and/or EMG Patient Report HPI: Patient is a 49-year-old female who presented with both hand numbness and tingling. Patient is vyvrv-[id number]-poavvdfa and recently had a right rotator cuff surgery in February 2019. Patient's current symptoms have progressed rapidly over several months, Patient also has some pain in the neck and shoulders and is diabetic with a hemoglobin A1c of 6 on medication. Physical Exam: Decreased sensation to light touch noted in both hand fingers. Tenderness at the wrist on the right and left sides noted. Scar from the right shoulder surgery healing well. Tenderness at right shoulder. Cervical paraspinal muscle spasm tenderness. Trigger and tender points noted in the right interscapular area in right lower scapula area. Findings: 1. There is a prolongation of left median motor nerve distal latency along with borderline left median sensory nerve distal latency although still within normal limits. 2. Normal needle examination of bilateral upper extremities including cervical paraspinal muscles. Impression: 1. Findings are consistent with moderately severe left median mononeuropathy at wrist due to carpal tunnel syndrome. 2. No electrodiagnostic evidence of ulnar neuropathy, cervical radiculopathy or brachial plexopathy in bilateral upper extremities. Recommendation: 1. Patient recommended to wear both hand splints as much as possible. 2. Patient recommended to avoid repetitive hand movements and heavy lifting and sleeping or leaning on elbows. 3. Clinical correlation and appropriate work-up was recommended.
== END ==
PROVIDERS: Family Provider Family Medicine; PCP Family Medicine; Referring Provider Orthopaedic Surgery; Visit Provider Orthopaedic Surgery
DX: R20.2 Paresthesia of skin (principal); R20.0 Anesthesia of skin
CPT/HCPCS: 95886; 95912

== ENCOUNTER → 2019-09-10 16:28 | Outpatient (CLI) | payer OTHER, SELFPAY ==
[2019-08-27 15:33] VITALS: BMI 37.8
--- NOTE | 2019-09-10 16:28 | MRI_ITS ---
STUDY: MRI THORACIC SPINE WITHOUT CONTRAST REASON FOR EXAM: Female, 49 years old. thoracic radiculopathy. Pain down right scapula, bilat hand numbness TECHNIQUE: Standardized fat and water weighted pulse sequences were obtained in the sagittal and axial planes. COMPARISON: None. FINDINGS: Normal kyphosis of the thoracic spine. There is no substantial scoliosis. There are typically benign appearing vertebral endplate changes adjacent to the T12-L1 and L1-L2 discs. T1-2, T2-3, T3-4, T4-5, T5-6, T6-7, T7-8, T8-9, T9-10, T10-11, T11-12: Normal disc hydration, heights and morphology of the corresponding intervertebral discs. Normal central canal and intervertebral neural foramina at the corresponding levels. Normal visualized thoracic cord. The conus medullaris demonstrates appropriate positioning, morphology and signal characteristics. The soft tissue structures are unremarkable. MRI/Spine Thoracic (Routine) IMPRESSION: Unremarkable appearing visualized cervical spinal cord. Unremarkable appearing thoracic spinal cord. No central canal stenosis. No evidence of foraminal stenosis. Typically benign-appearing vertebral body endplate changes adjacent to the T12-L1 and L1-L2 discs. Anatomic alignment. No suspicious pathologic osseous STIR signal. Electronically Signed: Shane Duncan MD at 8:40 EST , Service support ,
== END ==
PROVIDERS: Family Provider Family Medicine; PCP Family Medicine; Referring Provider Orthopaedic Surgery; Visit Provider Orthopaedic Surgery
DX: R20.0 Anesthesia of skin (principal); R20.2 Paresthesia of skin
CPT/HCPCS: 72146

== ENCOUNTER 2019-10-07 17:30 | Outpatient (RCR) | payer OTHER, SELFPAY ==
[2019-03-12 09:19] VITALS: BMI 39.9
--- NOTE | 2019-04-02 07:33 | HP.PTEVAL_ITS ---
Patient's Visit Information GABRIEL WADE is a 49 year old F referred to Physical Therapy by Domonique Hoang DO with a diagnosis of R RTC repair. Date of Evaluation: 03/27/19 Physical Therapist: Jay Banuelos DPT - Visit Plan Frequency: 2-3x /Week Duration: 4-6 Weeks Plan: Start with PROM of R shoulder and elbow, progress per massive tear protocol. - Subjective Findings: Pt. is here today for her initial evaluation S/P R RTC repair. DOS: 02/27/19. Pt. has a large tear. No mechanism of injury. Pt. arrives in sling as presecribed. Pt. reports being very painful. Pt. denies N/T, but reports having increased pain after coughing and sneezing one day after surgery. 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 Pt. has not been doing any exercises at this point in time. Pt. reports being very paiful and fearful to move her arm. Pt. is hopeful to get back to all recreational acivities without limitaitons. - Pain R shoulder Pain Intensity (Out of 10): 6 Pain Intensity Range: 3, 10 - Objective POSTURE: Pt. keeps her RUE in guarded posture. Pt. has icnreased shoulder height, FH posture. Pt. keep R shoulder in IR positioning. PALPATION: Pt. has normal healing incisions, no signs of infection. Pt. has puckering at biceps incision. Sore throughout subacromial region and biceps region. NEURO: normal throughout. ROM: L shoulder- full without icnrease in symptoms. R shoulder PROM_ flexion 45deg, scapation 45deg. ER at side 15deg. Elbow full flexion (passive), lacking 5deg of ext (passive). MMT: RUE- DNT, LUE- 4+/5 throughout. - Goals Goal 1:: Pt. to be I with HEP. Goal Time Frame: 4-6 Weeks Goal 2:: Pt. to have increased R shoulder PROM symmetrical to her L withtout increase in symptoms. Goal Time Frame: 4-6 Weeks Goal 3:: Pt. to have increased AROM of R shoujlder symmetrical to L without increase in symptoms. Goal Time Frame: 6-8 Weeks Goal 4:: Pt. to sleep withtout increase in symptoms. Goal Time Frame: 2-4 Weeks Goal 5:: Pt. to complete all ADLs without increase in symptoms. Goal Time Frame: 6-8 Weeks - Rehabilitation Potential Physical Therapy Diagnosis: Pt. presents with hypombility, weakness, increased pain and decreased tolerance to ADLS S/P RTC surgery. Pt. would benefit from PT to work on above limitations Rehabilitation Potential: Excellent - Anticipated Interventions Patient/Client Instruction: Educate patient on: Condition, Plan of Care, Risk Factors, Benefits of Fitness Program For the Purpose of:: To foster healthy habits, To improve decision making, To facilitate caregiver knowledge, To improve self management, To prevent re- injury, To improve ability to perform tasks related to life management, To improve tolerance to ADL's Therapeutic Exercise to Include: Strength training, Power training, Endurance training, Balance training, Body mechanics, Postural training, Flexibilty training, Passive ROM, Active ROM For the Purpose of:: To decrease pain, To decrease swelling/inflammation, To increase ROM, To improve nutrient delivery to tissue, To increase oxygenation perfusion, To improve muscle performance and motor function, To improve ability to perform ADL's, To increase tolerance to activity/condition/position, To improve performance and independence with ADL's, To improve ability of physical actions for home/community/work/leisure, To improve health of tissue, To decrease soft tissue restriction, To increase flexibility/ROM Manual Therapy Techniques to Include: Mobilization, Passive ROM, Functional dry needling, Soft tissue mobilization For the Purpose of:: To decrease pain, To decrease swelling/inflammation, To increase ROM, To improve nutrient delivery to tissue, To increase oxygenation perfusion IF ES: Yes Cryotherapy (ice pack, ice massage): Yes For the Purpose of:: To decrease pain, To decrease swelling/inflammation, To increase ROM Thank you for the opportunity to evaluate your patient. For Medicare and Medicare HMO plans, please review the plan of care and approve it. It will need to be FAXED BACK to us at [phone] for Medicare purposes. For Medicare only, by signing this I certify the plan of care. Please let me know if there are questions or concerns regarding this plan of care. Physician Signature: Date:
--- NOTE | 2019-04-05 12:24 | HP.PTREVAL ---
Domonique Hoang, DO, It has been my pleasure to treat GABRIEL WADE over the last 7 visits for R RTC repair. Please see the progress note below for an update on the physical therapy plan of care! Subjective: Pt. reports being more today after doing pulleys yesterday. I talked to her about her soreness at some is to be expected, but we need to start to increase her ROM. Pt. reports understanding. PT. reports doing exercises x3 daily which include pendulms, table stretches, pulleys and icing. pt. reprots having 3/10 pain in R shoulder pre treatment today. Objective/Function: Pt. tolerated all PT this date. PT. had improved PROMof R shoulder- flexion ~110deg, abd ~100deg. ER at 15deg of abd 15deg. Pt. has increased pain with overhead motions. Pt. has tightness, but is slowly progressing with tolerance to ROM. Pt. educated that we have to work into some soreness with her motion due to risk for capsular tightness. Pt. reports understanding. I talked with her about being compliant with her HEP x3 daily to increase her ROM. Pt. to follow up [facility] physician next week. Cont. to progress ROM. Plan Plan: Start with PROM of R shoulder and elbow, progress per massive tear protocol. Goals Goal 1:: Pt. to be I with HEP. Goal Time Frame: 4-6 Weeks Goal Progress: Progressing Goal 2:: Pt. to have increased R shoulder PROM symmetrical to her L withtout increase in symptoms. Goal Time Frame: 4-6 Weeks Goal Progress: Progressing Goal 3:: Pt. to have increased AROM of R shoujlder symmetrical to L without increase in symptoms. Goal Time Frame: 6-8 Weeks Goal 4:: Pt. to sleep withtout increase in symptoms. Goal Time Frame: 2-4 Weeks Goal Progress: Progressing Goal 5:: Pt. to complete all ADLs without increase in symptoms. Goal Time Frame: 6-8 Weeks Goal Progress: Progressing Anticipated Interventions Patient/Client Instruction: Educate patient on: Condition, Plan of Care, Risk Factors, Benefits of Fitness Program For the Purpose of:: To foster healthy habits, To improve decision making, To facilitate caregiver knowledge, To improve self management, To prevent re-injury, To improve ability to perform tasks related to life management, To improve tolerance to ADL's Therapeutic Exercise to Include: Strength training, Power training, Endurance training, Balance training, Body mechanics, Postural training, Flexibilty training, Passive ROM, Active ROM For the Purpose of:: To decrease pain, To decrease swelling/inflammation, To increase ROM, To improve nutrient delivery to tissue, To increase oxygenation perfusion, To improve muscle performance and motor function, To improve ability to perform ADL's, To increase tolerance to activity/condition/position, To improve performance and independence with ADL's, To improve ability of physical actions for home/community/work/leisure, To improve health of tissue, To decrease soft tissue restriction, To increase flexibility/ROM Manual Therapy Techniques to Include: Mobilization, Passive ROM, Functional dry needling, Soft tissue mobilization For the Purpose of:: To decrease pain, To decrease swelling/inflammation, To increase ROM, To improve nutrient delivery to tissue, To increase oxygenation perfusion IF ES: Yes Cryotherapy (ice pack, ice massage): Yes For the Purpose of:: To decrease pain, To decrease swelling/inflammation, To increase ROM Please do not hesitate to contact me at [phone] by phone or if you have questions or concerns regarding this new plan of care! Sincerely, Jay Banuelos DPT
== END 2019-10-07 19:00 | disposition home or self-care (01) ==
LOC: PT 17:30
PROVIDERS: Family Provider Family Medicine; PCP Family Medicine; Referring Provider Orthopaedic Surgery; Visit Provider Orthopaedic Surgery
DX: Z98.890 Other specified postprocedural states (principal)
CPT/HCPCS: 97014; 97110; 97161; G0283

== ENCOUNTER 2019-11-18 17:00 | Outpatient (RCR) | payer OTHER, SELFPAY ==
[2019-08-27 15:33] VITALS: BMI 37.8
[2019-10-10 10:03] VITALS: BMI 40.8
--- NOTE | 2019-11-19 07:56 | HP.PT.NRP ---
HP - Discharge Summary (1) - Patient Information GABRIEL WADE was seen in my office for initial evaluation on . The following Plan of Care was established for this patient: This patient was last seen in our office 11/18/19. Pertinent comments regarding their Physical therapy will appear below: Pt. was seen for her R shoulder. Pt. was having more difficulty with PT and will be DC as she is going to slowly progress on her own. Pt. to be DC from PT at this point in time. At this point I will be discontinuing this patient from physical therapy. I would be happy to see this patient again in the future if found appropriate by the physician. Thank you! REENA ArriagaT
== END 2019-11-18 19:00 | disposition home or self-care (01) ==
LOC: PT 17:00
PROVIDERS: PCP Family Medicine; Referring Provider Family Medicine; Visit Provider Family Medicine
DX: M25.611 Stiffness of right shoulder, not elsewhere classified (principal); Z98.890 Other specified postprocedural states

== ENCOUNTER → 2020-04-13 | Outpatient (CLI) | payer OTHER, SELFPAY ==
[2020-04-13 11:04] VITALS: BMI 40.8
[2020-04-13 12:36] LABS: Bacteria 0 SEEN /hpf (None Seen); Mucous, Urine 0 SEEN /hpf (<or=2+); Red Blood Cells-Urine 0 SEEN /hpf (0-5); White Blood Cells 0 SEEN /hpf (0-5)
[2020-04-13 12:47] LABS: Color, Urine Yellow (Yellow); Glucose, Dipstick Normal (Normal); Ketone-Dipstick Negative (Negative); Leukocyte Esterase-Dipstick Negative /ul (Negative); Nitrite-Dipstick Negative (Negative); Occult Blood-Urine Negative /ul (Negative); Protein-Dipstick Negative (Negative); Urine Bilirubin Dipstick Negative (Negative); Urine Clarity Sl. Cloudy (Clear); Urine Urobilinogen Normal (Normal)
[2020-04-13 12:54] LABS: Squamous Epithelial Cells - UA 0-5 SEEN /hpf (5-10)
== END | disposition home or self-care (01) ==
LOC: LABSPEC 12:12
PROVIDERS: PCP Family Medicine; Referring Provider Physician Assistant; Visit Provider Physician Assistant
DX: R30.0 Dysuria (principal)
CPT/HCPCS: 81001; 87086; 87088

== ENCOUNTER → 2020-06-10 15:59 | Outpatient (CLI) | payer OTHER, SELFPAY ==
[2020-05-21 16:12] VITALS: BMI 40.1
[2020-06-02 14:23] VITALS: BMI 40.1
--- NOTE | 2020-06-10 15:59 | BI_ITS ---
MAMMOGRAPHY - BILATERAL SCREENING REASON FOR EXAM: Female, 50 years old. Routine annual screening examination. PERTINENT HISTORY: Non-contributory. TECHNIQUE: Digital bilateral breast ranjana (3D mammographic acquisition) in the CC and MLO projections. 2-D mediolateral oblique (MLO) and craniocaudad (CC) views of both breasts were obtained. CAD: Full Field Digital Mammography with Computer Added Detection was performed. COMPARISON: Comparison is made with prior study dated 01/30/2019 and 06/29/2018. FINDINGS: Breast Composition: The breasts are heterogeneously dense, which may obscure small masses. There are no dominant masses or suspicious calcifications. Stable asymmetry of breast tissue unremarkable breast tissue is seen in the upper-outer quadrant of the left breast as compared to the right side. No other significant abnormalities are identified. There has been no significant change since the prior study. BI/SCREEN MAMM (CAD) W/RANJANA BILAT IMPRESSION: Stable bilateral screening mammogram. Yearly follow-up mammogram recommended. (A) ASSESSMENT CATEGORY: BIRADS Category 2: Benign. A letter regarding these results will be sent to the patient by the facility within 30 days. Approximately 10% of breast cancers are not detected by mammography. A normal mammogram should not delay biopsy of a clinically suspicious abnormality. [id number] Electronically Signed: Raul Dodge, at 8:03 EDT , Service support ,
== END ==
PROVIDERS: PCP Family Medicine; Referring Provider Family Medicine; Visit Provider Family Medicine
DX: Z12.31 Encounter for screening mammogram for malignant neoplasm of breast (principal)
CPT/HCPCS: 77063; 77067

== ENCOUNTER → 2020-06-11 | Outpatient (CLI) | payer OTHER, SELFPAY ==
[2020-06-02 14:23] VITALS: BMI 40.1
[2020-06-19 04:50] LABS: Calprotectin, Stool 79 ug/g (0-120)
== END | disposition home or self-care (01) ==
LOC: LABSPEC 12:53
PROVIDERS: PCP Family Medicine; Referring Provider Surgery; Visit Provider Surgery
DX: R19.7 Diarrhea, unspecified (principal)
CPT/HCPCS: 83993

== ENCOUNTER 2020-07-03 07:05 | Day surgery (SDC) | payer OTHER, SELFPAY ==
--- NOTE | 2020-06-02 04:09 | HP_ITS ---
Intake Vital Signs 06/02/20 BMI 40.1 06/02/20 Height 5 ft 3.5 in 06/02/20 Weight: 230 lb 7 oz 06/02/20 BMI 40.1 06/02/20 BP 127/81 H 06/02/20 Blood Pressure Location Lt brachial 06/02/20 Position Sitting 06/02/20 Respiration 20 H 06/02/20 Pulse 89 06/02/20 Temp 98.1 F 06/02/20 Temp Source Temporal 06/02/20 Pulse Oximetry (%) 98 06/02/20 Oxygen Delivery Method room air Intake Visit Reasons: CSCOPE Chief Complaint: colonoscopy Underlay Stitcher Required: No Is patient in pain?: No Allergies metoclopramide [From Reglan] Adverse Reaction (Verified 06/02/20 14:22) NIGHTMARES Medications dulaglutide 1.5 mg/0.5 mL subcutaneous pen injector 1.5 mg SC QWEEK #2 ml 06/12/19 [Rx Confirmed 06/02/20] hydrochlorothiazide 25 mg tablet 25 mg PO DAILY #90 tab 01/07/20 [Rx Confirmed 06/02/20] oig-maup-xmwvm-cimc-gla-iwj-in 220 mg capsule 1 cap PO DAILY #90 cap 05/21/20 [Rx Confirmed 06/02/20] Is last menstrual period known: No Post menopausal: Yes Patient : No PFSH Medical History Family history of colon cancer (Acute) Polyuria (Chronic) Cough (Acute) Vertigo (Acute) Dizziness (Chronic) Menorrhagia (Chronic) Bronchitis (Chronic) Hypertension (Chronic) Fear of flying (Chronic) Type 2 diabetes mellitus (Chronic) Diarrhea (Acute) Difficulty balancing (Acute) Fatigue (Acute) Shoulder pain (Acute) Surgical History (Updated 06/02/20 @ 14:19 by Juli Betancur) History of cholecystectomy (Acute) History of colonoscopy (Acute ~2014) History of hysterectomy (Acute) History of tubal ligation (Acute) S/P right rotator cuff repair (Acute) Family History (Updated 06/02/20 @ 14:20 by Juli Betancur) Father Hypertension Heart disease Colon cancer Diabetes Grandmother Heart disease Grandfather Colon cancer Uncle Colon cancer great uncle Aunt Diabetes Social History (Updated 06/02/20 @ 16:[address] Talha Fraser MD) Smoking Status: Never smoker alcohol intake: current alcohol intake frequency: holidays/special occasions only substance use type: does not use seatbelt use: always do you feel safe at home: Yes HPI HPI HPI: GABRIEL WADE, is a 50 F who presents to the office today for HPI HPI Surgical H&P: Yes HPI: GABRIEL WADE, is a 50 F who presents to the office today for diarrhea. The patient reports she is not having abdominal pain but she has been having a lot of diarrhea. She does have a history of colon cancer in her family. She has a history of colon cancer in her father and grandfather and uncle. She reports that lately the diarrhea has been getting worse and that she has had urgency and even incontinence. She says this happens immediately after eating. ROS General General: Yes weight change and fatigue; no appetite, colon cancer, breast cancer or weakness HEENT HEENT: No difficulty swallowing, eye injury, eye surgery, swollen glands or hoarseness Endo Endocrine: Yes diabetes mellitus; no thyroid disease, thyroid cancer, Hair loss, heat intolerance or cold intolerance Cardio Cardiovascular: Yes high blood pressure; no murmur, pacemaker, heart disease, atrial fibrillation, heart attack, heart stent, palpitations, shortness of breat with exertion or chest pain Psych Psychiatric: No depression, anxiety or hearing voices Resp Respiratory: No shortness of breath, No sleep apnea, No cough, No COPD, No asthma, No emphysema, No wheezing Gastro Gastrointestinal: No abdominal pain, No nausea or vomiting, Yes diarrhea, No constipation, No blood in stool, No acid reflux, No hemorrhoids, No ulcers, No gallbladder problem, No black,tarry stools Baldemar Hematologic: No blood thinners, No blood disorders, No bleeding, No anemia, No blood clots Neuro Neurologic: No weakness Exam Const General: cooperative Orientation: alert, oriented x3 Resp Effort & Inspection: normal respiratory effort Auscultation: clear to auscultation bilaterally Cardio Rate: regular rate Rhythm: regular rhythm Heart Sounds: no murmurs GI Inspection: non-distended Palpation: soft, nontender Assessment & Plan Problems 1. Diarrhea, unspecified type R19.7 Plan The patient has been having a lot of diarrhea for months. She was started on pancreatic enzymes in case this was a dumping syndrome. The patient does not report much improvement. She is not having any abdominal pain only diarrhea. She has no family history of inflammatory bowel disease. I discussed colonoscopy with her and did recommend a colonoscopy with random biopsies. I would also recommend an EGD at the same time to rule out any gastric pathology or cause for abdominal pain syndrome. I explained endoscopy in detail to the patient. I explained the risks including but not limited to stroke or heart attack with anesthesia, perforation of the GI tract, bleeding, infection. I explained that any of these could necessitate further emergency surgery. The patient understands and all questions were answered sufficiently. The patient wishes to proceed with procedure. Talha Fraser MD Pager: [facility] [address] [place] [address] [address] [place] [address] Office: Orders Orders: Colonoscopy Today EGD Today Calprotectin, Stool Today R19.7 Coding Level of Care Code Off vis,new,level 3 Diagnoses Diarrhea, unspecified type R19.7 ??Diarrhea type: unspecified type 06/02/20 1549 <Electronically signed by Talha davis MD> Date _ Talha Fraser MD I have re-examined the patient. There are no clinical changes since date of exam.
[2020-06-02 14:23] VITALS: BMI 40.1
--- NOTE | 2020-07-03 | COLBX_PTH ---
PATIENT: GABRIEL WADE LOC: EN U#:[id number] AGE/SX: 50/F ROOM: RE07/03/[address]: Dr. Talha Fraser MD : 1970 BED: DIS: 07/03/2020 SPEC #: [id number] RECD: 07/03/20 11:40 STATUS: TYRA AURA #: [id number] MAGNUS: 07/03/20 00:[address]: Talha Fraser DEPT: SURGICAL PATHOLOGY RECD BY: Nicholas Saenz ENTERED: 07/03/20 11:41 SP TYPE: COLON BX OTHR DR: Dr. Chikis Montana MD Tissues: A - Gastric mucous membrane B - COLON BIOPSY C - Sigmoid colon biopsy Procedures: Surgery Specimen Level IV HEADER OPERATION: Colonoscopy, EGD ([facility] [place]) PRE-OP DIAGNOSIS: Diarrhea TISSUE SUBMITTED: A - Antral biopsy for H. pylori and pathology, B - Random colon biopsies, C - Sigmoid polyp MICROSCOPIC DIAGNOSIS A. Antral biopsy: Chronic active gastritis. See microscopic description and comment. B. Colon, random biopsy: Fragments of colonic mucosa, no pathologic diagnosis. C. Sigmoid polyp, biopsy: Hyperplastic polyp. SJ:diane 07/06/20 COMMENT A. The results of immunohistochemistry for Helicobacter pylori will be reported separately ([id number]). MICROSCOPIC DESCRIPTION Slides are reviewed. GROSS DESCRIPTION A - Received in fixative is one container labeled with the patient's name and designated antral biopsy. The specimen consists of one irregular fragment of light robison soft tissue that measures 0.5 x 0.2 x 0.1 cm. The specimen is totally submitted in one cassette. B - Received in fixative is one container labeled with the patient's name and designated random colon biopsy. The specimen consists of multiple irregular fragments of light robison soft tissue that in aggregate measure 2 x 0.6 x 0.1 cm. The specimen is totally submitted in one cassette. C - Received in fixative is one container labeled with the patient's name and designated sigmoid polyp. The specimen consists of a piece of polyp measuring 0.4 x 0.3 x 0.2 cm. The specimen is totally submitted in one cassette. / CHARLEEN:diane 07/03/20 TC:5 CPT: 23437 x3
[2020-07-03 07:31] VITALS: BP 147/90; PULSE 78; RESP 14; TEMP 36.2; O2SAT 97; BMI 37.1
[2020-07-03] MEDS: Lactated Ringers 1,000 ML 100 ML IV (07:59)
--- NOTE | 2020-07-03 08:00 | IMM_PTH ---
PATIENT: GABRIEL WADE LOC: EN U#:[id number] AGE/SX: 50/F ROOM: RE07/03/[address]: Dr. Talha Fraser MD : 1970 BED: DIS: 07/03/2020 SPEC #: [id number] RECD: 07/03/20 13:39 STATUS: TYRA REQ #: [id number] MAGNUS: 07/03/20 08:[address]: Talha Fraser DEPT: IMMUNOHISTOCHEMISTRY RECD BY: Teresa Alcantar ENTERED: 07/03/20 13:39 SP TYPE: IMMUNO OTHR DR: Dr. Chikis Montana MD Tissues: A - Stomach, NOS Procedures: H Pylori (initial) PHYSICIAN & INSTITUTION [place] [id number] SPECIMEN INFORMATION: Tissue Source: A - Antral biopsy Clinical Info: Diarrhea Specimen Number: [id number] CPT code: 15133 METHODOLOGY: Deparaffinized sections of prefer/formalin-fixed tissue or PAP/DQ stained slides are incubated with monoclonal/polyclonal antibodies/oligonucleotide probes. Localization is made via biotin free immunoperoxidase method. Appropriate controls are performed and reacted as expected. Results on target cell population are indicated in the following table: RESULTS: ANTIBODY / CLONE RESULT Block A H Pylori (polyclonal) negative These tests were developed and their performance characteristics determined by [facility]. They may not have been cleared or approved by the U.S. Food and Drug Administration. The FDA has determined that such clearance or approval is not necessary. INTERPRETATION: A. Antral biopsy: Negative for Helicobacter pylori organisms. SJ:diane 07/07/20
[2020-07-03 08:06] LABS: Bedside Glucose 138 mg/dL (70-110)
[2020-07-03 08:28] VITALS: BP 113/76; BP 147/90; PULSE 86; RESP 18; TEMP 36.4; O2SAT 97
[2020-07-03 08:30] VITALS: BP 119/76; BP 147/90; PULSE 86; RESP 16; O2SAT 97
--- NOTE | 2020-07-03 08:34 | OP.EGD_ITS ---
Patient Name: Ernestina Monique Procedure Date: 07/03/2020 7:20 AM Date of : 1970 Age: 50 Procedure: Upper GI endoscopy Indications: Epigastric abdominal pain Providers: Talha Fraser MD Referring MD: Chikis Montana Medicines: Monitored Anesthesia Care Patient Profile: This is a 50 year old female. Refer to note in patient chart for documentation of history and physical. Complications: No immediate complications. Procedure: Pre-Anesthesia Assessment: - Prior to the procedure, a History and Physical was performed, and patient medications and allergies were reviewed. The patient's tolerance of previous anesthesia was also reviewed. The risks and benefits of the procedure and the sedation options and risks were discussed with the patient. All questions were answered, and informed consent was obtained. Prior Anticoagulants: The patient has taken no previous anticoagulant or antiplatelet agents. After reviewing the risks and benefits, the patient was deemed in satisfactory condition to undergo the procedure. After obtaining informed consent, the endoscope was passed under direct vision. Throughout the procedure, the patient's blood pressure, pulse, and oxygen saturations were monitored continuously. The Endoscope was introduced through the mouth, and advanced to the third part of duodenum. The upper GI endoscopy was accomplished without difficulty. The patient tolerated the procedure well. Scope In: 8:05:11 AM Scope Out: 8:07:28 AM Total Procedure Duration Time 0 hours 2 minutes 17 seconds Findings: The esophagus was normal. Few non-bleeding superficial gastric ulcers with no stigmata of bleeding were found in the prepyloric region of the stomach. Biopsies were taken with a cold forceps for Helicobacter pylori testing. The examined duodenum was normal. Impression: - Normal esophagus. - Non-bleeding gastric ulcers with no stigmata of bleeding. Biopsied. - Normal examined duodenum. Recommendation: - Await pathology results. - Discharge patient to home. - Resume previous diet. - Continue present medications. - Use Prilosec (omeprazole) 20 mg PO daily for 2 months. Procedure Code(s): --- Professional --- 79100, Esophagogastroduodenoscopy, flexible, transoral; with biopsy, single or multiple Diagnosis Code(s): --- Professional --- K25.9, Gastric ulcer, unspecified as acute or chronic, without hemorrhage or perforation R10.13, Epigastric pain CPT copyright 2017 [employer]. All rights reserved. The codes documented in this report are preliminary and upon blade boner review may be revised to meet current compliance requirements. Talha Fraser MD 07/03/2020 8:34:09 AM This report has been signed electronically. Number of Addenda: 0 Note Initiated On: 07/03/2020 7:20 AM
--- NOTE | 2020-07-03 08:34 | OP.CCLET_ITS ---
07/03/2020 Chikis Montana [place] [id number] [address] Re : Upper GI endoscopy procedure for Ernestina Monique Dear Dr. Montana This procedure was performed on Friday, July 03, 2020. My impressions and recommendations are as follows: Impressions : - Normal esophagus. - Non-bleeding gastric ulcers with no stigmata of bleeding. Biopsied. - Normal examined duodenum. Recommendations : - Await pathology results. - Discharge patient to home. - Resume previous diet. - Continue present medications. - Use Prilosec (omeprazole) 20 mg PO daily for 2 months. My findings are described in the full procedure note, which is enclosed. If I can be of further assistance, please feel free to contact me at Doctor phone number(s): , Work: . Sincerely, Talha Fraser MD 07/03/2020 8:34:09 AM This report has been signed electronically.
[2020-07-03 08:35] VITALS: BP 109/76; BP 147/90; PULSE 96; RESP 16; O2SAT 96
--- NOTE | 2020-07-03 08:36 | OP.CCLET_ITS ---
07/03/2020 Chikis Montana [place] [id number] [address] Re : Colonoscopy procedure for Ernestina Monique Dear Dr. Montana This procedure was performed on Friday, July 03, 2020. My impressions and recommendations are as follows: Impressions : - One polyp in the sigmoid colon, removed with a hot snare. Resected and retrieved. - Biopsies were taken with a cold forceps from the entire colon for evaluation of microscopic colitis. Recommendations : - Discharge patient to home. - Resume previous diet. - Continue present medications. - Await pathology results. - Repeat colonoscopy in 5 years for surveillance. My findings are described in the full procedure note, which is enclosed. If I can be of further assistance, please feel free to contact me at Doctor phone number(s): , Work: . Sincerely, Talha Fraser MD 07/03/2020 8:36:12 AM This report has been signed electronically.
--- NOTE | 2020-07-03 08:36 | OP.COLON_ITS ---
Patient Name: Ernestina Monique Procedure Date: 07/03/2020 8:08 AM Date of : 1970 Age: 50 Procedure: Colonoscopy Indications: Chronic diarrhea Providers: Talha Fraser MD Referring MD: Chikis Montana Medicines: Monitored Anesthesia Care Patient Profile: This is a 50 year old female. Refer to note in patient chart for documentation of history and physical. Last Colonoscopy: Complications: No immediate complications. Estimated blood loss: Minimal. Procedure: Pre-Anesthesia Assessment: - Prior to the procedure, a History and Physical was performed, and patient medications and allergies were reviewed. The patient's tolerance of previous anesthesia was also reviewed. The risks and benefits of the procedure and the sedation options and risks were discussed with the patient. All questions were answered, and informed consent was obtained. Prior Anticoagulants: The patient has taken no previous anticoagulant or antiplatelet agents. After reviewing the risks and benefits, the patient was deemed in satisfactory condition to undergo the procedure. After I obtained informed consent, the scope was passed under direct vision. Throughout the procedure, the patient's blood pressure, pulse, and oxygen saturations were monitored continuously. The colonoscope was introduced through the anus and advanced to the cecum, identified by appendiceal orifice and ileocecal valve. The colonoscopy was performed without difficulty. The patient tolerated the procedure well. The quality of the bowel preparation was good. Scope In: 8:10:16 AM Scope Withdrawal Time 0 hours 7 minutes 58 seconds Scope Out: 8:23:49 AM Total Procedure Duration Time 0 hours 13 minutes 33 seconds Findings: A polyp was found in the sigmoid colon. The polyp was removed with a hot snare. Resection and retrieval were complete. Biopsies for histology were taken with a cold forceps from the entire colon for evaluation of microscopic colitis. Impression: - One polyp in the sigmoid colon, removed with a hot snare. Resected and retrieved. - Biopsies were taken with a cold forceps from the entire colon for evaluation of microscopic colitis. Recommendation: - Discharge patient to home. - Resume previous diet. - Continue present medications. - Await pathology results. - Repeat colonoscopy in 5 years for surveillance. Procedure Code(s): --- Professional --- 25004, Colonoscopy, flexible; with removal of tumor(s), polyp(s), or other lesion(s) by snare technique 83262, 59, Colonoscopy, flexible; with biopsy, single or multiple Diagnosis Code(s): --- Professional --- D12.5, Benign neoplasm of sigmoid colon K52.9, Noninfective gastroenteritis and colitis, unspecified CPT copyright 2017 [employer]. All rights reserved. The codes documented in this report are preliminary and upon garment presser review may be revised to meet current compliance requirements. Talha Fraser MD 07/03/2020 8:36:12 AM This report has been signed electronically. Number of Addenda: 0 Note Initiated On: 07/03/2020 8:08 AM
[2020-07-03 08:40] VITALS: BP 144/89; BP 147/90; PULSE 79; RESP 16; O2SAT 97
[2020-07-03 08:45] VITALS: BP 139/92; BP 147/90; PULSE 77; RESP 16; TEMP 36.6; O2SAT 97
== END 2020-07-03 09:27 | disposition home or self-care (01) ==
LOC: EN 07:05 → AC 07:06
PROVIDERS: Anesthesiology; PCP Family Medicine; Referring Provider Family Medicine; Visit Provider Surgery
PROC: 0DJD8ZZ Inspection of Lower Intestinal Tract, Via Natural or Artificial Opening Endoscopic (ICD-10-PCS; CPT 45378; principal; 2020-07-03 07:55)
DX: K29.50 Unspecified chronic gastritis without bleeding (principal); K25.9 Gastric ulcer, unspecified as acute or chronic, without hemorrhage or perforation; K63.5 Polyp of colon; K52.9 Noninfective gastroenteritis and colitis, unspecified; Z80.0 Family history of malignant neoplasm of digestive organs; I10 Essential (primary) hypertension; E11.9 Type 2 diabetes mellitus without complications; G25.81 Restless legs syndrome; Z78.0 Asymptomatic menopausal state; Z86.2 Personal history of diseases of the blood and blood-forming organs and certain disorders involving the immune mechanism; Z79.899 Other long term (current) drug therapy
CPT/HCPCS: 43239; 45380; 45385; 82962; 87635; 88305; 88342; C9803; J7120; J2405; U0003

== ENCOUNTER → 2020-07-17 13:10 | Outpatient (CLI) | payer OTHER, SELFPAY ==
[2020-07-03 07:31] VITALS: BMI 37.1
[2020-07-17 15:31] LABS: Erythrocyte Sedimentation Rate 26 mm/hr (0-30)
[2020-07-17 15:32] LABS: CRP 8.89 mg/L (0.0-3.0); Rheumatoid Factor < 10.0 IU/mL (<15)
[2020-07-21 06:30] LABS: CCP IgG Antibodies 7 units (0-19)
[2020-07-21 09:10] LABS: ANTINUCLEAR ANTIBODIES DIRECT Negative (Negative)
== END ==
PROVIDERS: PCP Family Medicine; Visit Provider Family Medicine
DX: M13.0 Polyarthritis, unspecified (principal)
CPT/HCPCS: 36415; 85652; 86038; 86140; 86200; 86225; 86235; 86431

== ENCOUNTER → 2020-08-18 | Outpatient (CLI) | payer OTHER, SELFPAY | END | disposition home or self-care (01) | LOC: LABSPEC 17:16 | PROVIDERS: PCP Family Medicine; Referring Provider Family Medicine; Visit Provider Family Medicine | DX: U07.1 COVID-19 (principal); R05 Cough; R53.83 Other fatigue; R51.9 Headache, unspecified | CPT/HCPCS: 87635; C9803; U0003 ==

== ENCOUNTER → 2020-11-16 08:11 | Outpatient (CLI) | payer OTHER, SELFPAY ==
[2020-11-16 12:07] LABS: Absolute Lymphocyte Count 2.01 X10^3/uL (0.83-4.51); Absolute Neutrophil Count 4.1 X10^3/uL (2.0-7.7); Basophil# 0.01 X10^3/uL; Basophil% 0.1 % (0-1); Eosinophil# 0.09 X10^3/uL; Eosinophils% 1.3 % (0-5); Hematocrit 44.9 % (37-47); Hemoglobin 14.2 g/dL (12.0-15.0); Lymphocyte # 2.01 X10^3/ul (4.0); Mean Corp Hgb Conc 31.6 g/dL (32-36); Mean Corpuscular Hgb 27.8 pg (27.0-32.0); Mean Corpuscular Volume 87.9 fL (81-99); Mean Platelet Vol. 11.8 fl (6.2-12.0); Monocyte# 0.43 X10^3/uL; Monocyte% 6.4 % (0-10); NRBC Flagged by Analyzer 0 % (0-5); Neutrophil # 4.11 X10^3/uL (2.7-7.7); Neutrophil % 61.5 % (47-70); Platelet Count 283 K/mm3 (150-450); RBC Distribution Width CV 13.1 % (11.6-14.6); RBC Distribution Width SD 42.5 fl (35.1-43.9); Red Blood Count 5.11 M/mm3 (4.2-5.4); White Blood Count 6.7 K/mm3 (4.4-11.0)
[2020-11-16 12:32] LABS: ALB/GLOB Ratio 0.9 RATIO (0.9-2.4); AST(SGOT) 16 U/L (15-37); Alanine Aminotransfer ALT/SGPT 56 U/L (13-56); Albumin, Serum 3.6 g/dL (3.2-5.0); Alkaline Phosphatase 72 U/L (45-117); Anion Gap 6 (5-15); BUN 14 mg/dL (7-18); BUN/Creat Ratio 14.9 RATIO (10-20); Calcium,Total 9.3 mg/dL (8.5-10.1); Chloride 105 mmol/L (98-107); Cholesterol 185 mg/dL (200); Creatinine, Serum 0.94 mg/dL (0.55-1.02); EST Glomerular Filtration Rate 67 mL/min (>60); Est Glom Filt Rate - Afr Amer 81 mL/min (>60); Globulin 3.8 g/dL (2.2-4.2); Glucose 137 mg/dL (74-106); High Density Lipoprotein 43 mg/dL; Potassium 3.6 mmol/L (3.5-5.1); Protein, Total 7.4 g/dL (6.4-8.2); Sodium Level 139 mmol/L (136-145); Triglycerides 109 mg/dL; Very Low Density Lipoprotein 22 mg/dL (5-40)
[2020-11-16 12:52] LABS: Microalbumin,Random Urine 36.4 mg/L (NO RANGE EST.); Microalbumin:Creatinine Ratio 14.9 mg/g CRE (<30 mg/g CRE)
== END ==
PROVIDERS: PCP Family Medicine; Visit Provider Family Medicine
DX: I10 Essential (primary) hypertension (principal); E11.9 Type 2 diabetes mellitus without complications
CPT/HCPCS: 36415; 80053; 80061; 82043; 82570; 85025

== ENCOUNTER 2021-01-29 07:20 | Emergency (ER) | payer OTHER, SELFPAY ==
[2021-01-29 07:20] VITALS: BP 157/107; PULSE 78; RESP 15; TEMP 36.4; O2SAT 98; BMI 37.8
--- NOTE | 2021-01-29 07:44 | EX.ED.DYSGE1 ---
HPI History of Present Illness Chief Complaint: Allergic Reaction Informant: patient Narrative Narrative: 51-year-old female presenting with facial swelling. Patient states she used new face products yesterday morning. She states she used exfoliation cream and a new serum. She developed hives yesterday. She took Benadryl last night. She woke up this morning with swelling to her face. Denies tongue swelling. Denies difficulty breathing or swallowing. She complains of itching. Denies other complaints. Prior similar symptoms: Yes Recent Illness/Hospitalization: No PFSH PFSH Medical History (Updated 01/29/21 @ 10:[address] Ileana Fournier MD) Bronchitis Cough Diarrhea Difficulty balancing Dizziness Family history of colon cancer Fatigue Fear of flying Hypertension Menorrhagia Polyuria Shoulder pain Type 2 diabetes mellitus Vertigo Home Medications mlbuana-fxvmtmsnd-rtdkgf-xusok-lsgehdma-klutm-invertase 220 mg capsule 1 cap PO DAILY #90 cap 05/21/20 [Rx Last Taken Unknown] dulaglutide 1.5 mg/0.5 mL subcutaneous pen injector 1.5 mg SC QWEEK #2 ml 06/05/20 [Rx Last Taken Unknown] hydrochlorothiazide 25 mg tablet 25 mg PO DAILY #30 tablet 01/04/21 [Rx Last Taken Unknown] prednisone 20 mg PO DAILY #3 tablet 01/29/21 [Rx Last Taken Unknown] Allergy/AdvReac Type Severity Reaction Status Date / Time metoclopramide [From Reglan] AdvReac NIGHTMARES Verified 01/29/21 07:22 Family History Father Hypertension Heart disease Colon cancer Diabetes Grandmother Heart disease Grandfather Colon cancer Uncle Colon cancer great uncle Aunt Diabetes Surgical History History of cholecystectomy History of colonoscopy (~2014) History of hysterectomy History of tubal ligation S/P right rotator cuff repair Social History (Updated 06/02/20 @ 16:[address] Talha Fraser MD) Smoking Status: Never smoker alcohol intake: current alcohol intake frequency: holidays/special occasions only substance use type: does not use seatbelt use: always do you feel safe at home: Yes ROS ROS ED Constitutional Constitutional ED: Denies fever(s) Eyes Eyes: Denies change in vision ENT ENT ED: Denies rhinorrhea or sore throat Cardiovascular Cardiovascular: Denies chest pain or palpitations Respiratory/Chest Respiratory/Chest: Denies cough or dyspnea Gastrointestinal Gastrointestinal: Denies abdominal pain, diarrhea, nausea or vomiting Musculoskeletal Musculoskeletal: Denies myalgias Neurologic Neurologic: Denies headache(s) Allergic/Immunologic Allergic/Immunologic ED: Reports urticaria EXAM Physical Exam Const Vital Signs: 01/29/21 07:20 Temperature 97.5 F L Temperature Source Temporal Pulse Rate 78 Respiratory Rate 15 Blood Pressure 157/107 H Blood Pressure Mean 123 Pulse Ox 98 Oxygen Delivery Method Room Air Positive well nourished and well developed General Appearance ED: well developed HEENT Reports normocephalic and head/scalp atraumatic HEENT Narrative: No tongue swelling. No pharyngeal edema. Mild diffuse maxilla and lip swelling Eyes PERRL and EOMs intact bilaterally Neck supple General: Negative for tenderness Chest Wall inspection of chest normal Resp normal respiratory effort and clear to auscultation bilaterally Cardio regular rate and regular rhythm GI non-tender and non-distended Palpation: soft; Negative for guarding or rebound tenderness present no CVA tenderness Extremity normal to inspection Neuro oriented x3 Sensorium / Orientation: alert Psych mental status grossly normal Skin Skin Narrative: Mild erythema neck and chest wall MDM MDM MDM Narrative Medical decision making narrative: Patient was given Solu-Medrol IV. She drove herself to the emergency department. Patient was observed in the ED for several hours and has improvement of her symptoms. She is given short course of prednisone. Advised to follow-up with her primary care physician. Advised to discontinue use of new face cream. Advised return to ED for worsening complaints. Discharge Plan Triage Chief Complaint: Allergic Reaction ED Provider: Ileana Fournier Dx/Rx/DC Orders Clinical Impression: Allergic reaction Instructions: ED General Allergic Reactions Prescriptions: New prednisone 20 MG tablet 20 mg PO DAILY Qty: 3 RF: 0 No Action shx-dzty-rfqxr-arfx-gii-kwp-in 220 mg capsule 220 mg capsule 1 cap PO DAILY Qty: 90 RF: 1 Trulicity 1.5 mg/0.5 mL pen injector 1.5 mg SC QWEEK Qty: 2 RF: 5 hydrochlorothiazide 25 mg tablet 25 mg PO DAILY Qty: 30 RF: 0 Primary Care Provider: Chikis Montana Referrals: Chikis Montana MD [Primary Care Provider] - Disposition Disposition: Home, self care
[2021-01-29] MEDS: MethylPREDNISolone 125 MG/2 ML Vial IV (08:02)
== END 2021-01-29 11:17 | disposition home or self-care (01) ==
PROVIDERS: Emergency Provider Emergency Medicine; PCP Family Medicine
DX: L50.0 Allergic urticaria (principal); I10 Essential (primary) hypertension; E11.9 Type 2 diabetes mellitus without complications; Z79.899 Other long term (current) drug therapy
CPT/HCPCS: 96374; 99283; A4216

== ENCOUNTER → 2021-02-19 14:08 | Outpatient (CLI) | payer OTHER, SELFPAY ==
[2021-01-29 07:20] VITALS: BMI 37.8
--- NOTE | 2021-02-19 14:15 | ECHOCS_ITS ---
Reason For Study: Tachycardia since Covid Procedure This was a 2D Doppler, Color Flow transthoracic echocardiogram. The study was technically difficult. Contrast injection was performed. Exam performed in department. Left Ventricle Normal LV size. Left ventricular systolic function is normal. The estimated ejection fraction is 60 %. Stage 1 diastolic dysfunction. No regional wall motion abnormalities noted. Right Ventricle Normal RV size. Normal systolic function. Atria Normal left atrium. Normal right atrium. Mitral Valve Normal mitral valve. Tricuspid Valve Normal tricuspid valve. Aortic Valve Normal aortic valve. Pulmonic Valve Normal pulmonic valve. Great Vessels Normal aortic root. The pulmonary artery is normal size. Normal inferior vena cava. Pericardium/Pleural No pericardial effusion. Medication 22 gauge I.V. with prn adaptor inserted into left arm. Diluted definity 2ml given slow IV push to enhance endocardial definition. MMode/2D Measurements & Calculations LVIDd: 3.7 cm IVSd: 1.4 cm LA dimension: 3.6 cm LVIDs: 2.1 cm LVPWd: 1.4 cm FS: 42.5 % LAV(MOD-bp): 35.6 ml LA A4 area: 16.4 cm2 RA A4 area: 10.5 cm2 LAV(MOD-bp) Indexed: 16.8 ml/m2 LAV(MOD-sp2): 29.4 ml LAV(MOD-sp4): 39.5 ml Time Measurements MV dec time: 0.26 sec Doppler Measurements & Calculations MV E max grant: 82.8 cm/sec Lat Peak E' Grant: 11.0 cm/sec Med Peak E' Grant: 6.7 cm/sec MV A max grant: 103.9 cm/sec E/E' lat: 7.5 E/E' med: 12.3 MV E/A: 0.80 MV V2 max: 114.9 cm/sec MV P1/2t max grant: 109.8 cm/sec Ao V2 max: 162.4 cm/sec MV max P.3 mmHg MV P1/2t: 80.3 msec Ao max P.6 mmHg MV V2 mean: 65.7 cm/sec MV dec slope: 400.2 cm/sec2 MV mean P.0 mmHg MV V2 VTI: 30.6 cm MVA(P1/2t): 2.7 cm2 LV V1 max: 131.6 cm/sec PA V2 max: 82.2 cm/sec LV V1 max P.9 mmHg ECHO/Echo Complete W/ Contrast Interpretation Summary Normal LV size. Left ventricular systolic function is normal. The estimated ejection fraction is 60 %. Stage 1 diastolic dysfunction. Contrast injection was performed. Ordering Physician: Chikis Montana Referring Physician: Chikis Montana Performed By: Rusty Batista RCS
== END ==
PROVIDERS: PCP Family Medicine; Referring Provider Family Medicine; Visit Provider Family Medicine
DX: R00.0 Tachycardia, unspecified (principal)
CPT/HCPCS: 93306; Q9957; A4216; C8929; J3490

== ENCOUNTER → 2021-07-07 10:03 | Outpatient (CLI) | payer OTHER, SELFPAY ==
[2021-07-07 11:20] LABS: Erythrocyte Sedimentation Rate 22 mm/hr (0-30)
[2021-07-07 11:33] LABS: CRP 9.73 mg/L (0.0-3.0)
[2021-07-08 17:07] LABS: Endomysial Antibody IgA Negative (Negative)
[2021-07-08 20:48] LABS: Immunoglobulin A 277 mg/dL (87-352); t-Transglutaminase IgA <2 U/mL (0-3)
[2021-07-10 23:36] LABS: Giardia Lamblia, Stool EIA Negative (Negative)
[2021-07-13 12:13] LABS: Calprotectin, Stool 33 ug/g (0-120)
== END ==
PROVIDERS: PCP Family Medicine; Referring Provider Internal Medicine Gastroenterology; Visit Provider Internal Medicine Gastroenterology
DX: R19.7 Diarrhea, unspecified (principal)
CPT/HCPCS: 36415; 82784; 83516; 83993; 85652; 86140; 86255; 87329; 87493; 87506

== ENCOUNTER → 2021-07-30 | Outpatient (CLI) | payer OTHER, SELFPAY ==
--- NOTE | 2021-07-30 | LES_PTH ---
PATIENT: GABRIEL WADE LOC: [facility] U#:[id number] AGE/SX: 51/F ROOM: RE07/30/[address]: Dr. Fallon Murry MD : 1970 BED: DIS: 07/30/2021 SPEC #: [id number] RECD: 07/30/21 12:07 STATUS: TYRA RELandon #: [id number] MAGNUS: 07/30/21 00:[address]: Fallon Murry DEPT: SURGICAL PATHOLOGY RECD BY: Tara Jacobson ENTERED: 07/30/21 14:21 SP TYPE: Lesion OTHR DR: Dr. Chikis Montana MD Tissues: A - Skin, NOS B - Skin, NOS Procedures: Surgery Specimen Level IV HEADER OPERATION: Excision of skin lesions x3 PRE-OP DIAGNOSIS: Skin lesions gluteal cleft TISSUE SUBMITTED: A ? Neoplasm of gluteal fold, B ? Seborrheic keratosis x2 MICROSCOPIC DIAGNOSIS A. Skin lesion, gluteal fold, excisional biopsy: Polypoid intradermal nevus. Inflamed epidermal inclusion cyst. Moderate chronic inflammation. B. Gluteal cleft lesion #2 & 3, excisional biopsy: Polypoid compound nevus with predominantly intradermal component. Polypoid intradermal nevus. SJ:diane 08/02/2021 MICROSCOPIC DESCRIPTION Slides are reviewed. GROSS DESCRIPTION A - Received in fixative is one container labeled with the patient's name and designated gluteal cleft #1. The specimen consists of a polypoid fragment of skin with attached soft tissue measuring 1.5 x 1.2 x 0.7 cm. The specimen is sectioned and totally submitted in one cassette. B - Received in fixative is one container labeled with the patient's name and designated gluteal cleft #2 & 3. The specimen consists of two polypoid fragments of skin with attached soft tissue, each has an average length of 1 cm and average diameter of 0.8 cm. One fragment is inked in black ink. Both fragments are bisected and totally submitted in one cassette. / AM:diane 07/30/21 TC:1 CPT: 63377n8
== END | disposition home or self-care (01) ==
LOC: LABSPEC 12:32
PROVIDERS: PCP Family Medicine; Visit Provider Surgery
DX: D22.5 Melanocytic nevi of trunk (principal)
CPT/HCPCS: 88305

== ENCOUNTER → 2021-08-02 07:28 | Outpatient (CLI) | payer OTHER, SELFPAY ==
--- NOTE | 2021-08-02 07:29 | CT_ITS ---
INDICATION: abd pain and diarrhea EXAMINATION: CT ABDOMEN AND PELVIS WITH CONTRAST - CT Abdomen And Pelvis W/ Contrast Injection TECHNIQUE: Helically acquired images were obtained of the abdomen and pelvis following IV contrast. A radiation dose optimization technique was used for this scan. Oral contrast: None. COMPARISON: 02/14/2019 FINDINGS: LOWER CHEST: Lung bases are clear. LIVER: Mildly heterogeneous low-attenuation in the liver is fatty infiltration. GALLBLADDER AND BILIARY TREE: Patient status post cholecystectomy PANCREAS: No focal cystic or solid mass. SPLEEN: Few calcified granulomas noted. ADRENAL GLANDS: No nodules. KIDNEYS AND URETERS: Normal renal size and position. No hydronephrosis. PERITONEUM: No ascites or free air. No other fluid collection. BOWEL: No evidence of acute appendicitis. No stomach or bowel distension. No focal inflammatory change. LYMPH NODES: No enlarged mesenteric or retroperitoneal lymph nodes. VESSELS: Aorta is non-dilated. URINARY BLADDER: Unremarkable. REPRODUCTIVE ORGANS: Ovaries are visualized within normal limits. Uterus is not visualized. ABDOMINAL WALL: No discrete abdominal or pelvic wall hernia. BONES: No lytic or blastic abnormality. CT/Abdomen/Pelvis WITH Contrast IMPRESSION: Mild fatty infiltration of the liver. Otherwise, no CT evidence for acute inflammatory process involving the abdomen or pelvis. Electronically Signed: Matty Rod MD at 11:59 EST Tel , Service support ,
[2021-08-02 09:51] LABS: CREATININE FINGERSTICK 0.7 mg/dL (0.55-1.02); EGFR FINGERSTICK > 60.0000 mL/min (>60)
== END ==
PROVIDERS: PCP Family Medicine; Referring Provider Internal Medicine Gastroenterology; Visit Provider Internal Medicine Gastroenterology
DX: R19.7 Diarrhea, unspecified (principal)
CPT/HCPCS: 74177; Q9967

== ENCOUNTER → 2021-08-06 07:03 | Outpatient (CLI) | payer OTHER, SELFPAY ==
--- NOTE | 2021-08-06 07:13 | BI_ITS ---
MAMMOGRAPHY - BILATERAL SCREENING REASON FOR EXAM: Female, 51 years old. Routine annual screening examination. PERTINENT HISTORY: Non-contributory. TECHNIQUE: Digital bilateral breast ranjana (3D mammographic acquisition) in the CC and MLO projections. 2-D mediolateral oblique (MLO) and craniocaudad (CC) views of both breasts were obtained. CAD: Full Field Digital Mammography with Computer Added Detection was performed. COMPARISON: Comparison is made with prior study dated 06/10/2020 and 01/30/2019. FINDINGS: Breast Composition: The breasts are heterogeneously dense, which may obscure small masses. There are no dominant masses or suspicious calcifications. Stable asymmetry of breast tissue where more breast tissue is seen in the upper-outer quadrant left breast as compared to the right side. Stable small benign appearing bilateral axillary lymph nodes. No other significant abnormalities are identified. There has been no significant change since the prior study. BI/SCRN MAMM (CAD)W/RANJANA BILAT IMPRESSION: Stable bilateral screening mammogram. Yearly follow-up mammogram recommended. (A) ASSESSMENT CATEGORY: BIRADS Category 2: Benign. A letter regarding these results will be sent to the patient by the facility within 30 days. Approximately 10% of breast cancers are not detected by mammography. A normal mammogram should not delay biopsy of a clinically suspicious abnormality. [id number] Electronically Signed: Raul Dodge MD at 13:28 EST , Service support ,
== END ==
PROVIDERS: PCP Family Medicine; Referring Provider Family Medicine; Visit Provider Family Medicine
DX: Z12.31 Encounter for screening mammogram for malignant neoplasm of breast (principal)
CPT/HCPCS: 77063; 77067

== ENCOUNTER → 2021-08-10 09:58 | Outpatient (CLI) | payer OTHER, SELFPAY ==
--- NOTE | 2021-08-10 10:01 | US_ITS ---
STUDY: ABDOMINAL ULTRASOUND - RIGHT UPPER QUADRANT; US ELASTOGRAPHY REASON FOR VISIT: Female, 51 years old. Hepatomegaly TECHNIQUE: Ultrasound evaluation of the right upper quadrant was performed with real-time and static santana-scale imaging. Point quantification shear wave elastography was performed (Pufetto). TECHNICAL QUALITY: Limited. Examination limited due to obesity. COMPARISON: None. FINDINGS: Liver: The liver measures 21 cm. There is increased echogenicity of the liver. The bile ducts are within normal limits. There is hepatic color flow. The direction of portal flow is hepatopetal. There is no demonstrated mass lesion. Median liver stiffness measured 7.8 kPa. Gallbladder: The patient is status post cholecystectomy. Common Bile Duct (C.B.D.): The common bile duct measures 5.0 mm. Pancreas: There is normal echogenicity of the visualized pancreas. There is no demonstrated pancreatic mass or cyst. Right Kidney: Normal size of the right kidney. There is no demonstrated renal mass or cyst. There is no right hydronephrosis. IMPRESSION: 1. Liver stiffness measures 7.8 kPa compatible with F2-F3 (Mild to moderate liver fibrosis) Metavir score. 2. Hepatomegaly. Increased echogenicity of the liver is nonspecific but most commonly associated with hepatic steatosis. Electronically Signed: Reynaldo Savage MD (Brooks) at 13:11 EST , Service support , STUDY: ABDOMINAL ULTRASOUND - RIGHT UPPER QUADRANT; US ELASTOGRAPHY REASON FOR VISIT: Female, 51 years old. Hepatomegaly TECHNIQUE: Ultrasound evaluation of the right upper quadrant was performed with real-time and static santana-scale imaging. Point quantification shear wave elastography was performed (Pufetto). TECHNICAL QUALITY: Limited. Examination limited due to obesity. COMPARISON: None. FINDINGS: Liver: The liver measures 21 cm. There is increased echogenicity of the liver. The bile ducts are within normal limits. There is hepatic color flow. The direction of portal flow is hepatopetal. There is no demonstrated mass lesion. Median liver stiffness measured 7.8 kPa. Gallbladder: The patient is status post cholecystectomy. Common Bile Duct (C.B.D.): The common bile duct measures 5.0 mm. Pancreas: There is normal echogenicity of the visualized pancreas. There is no demonstrated pancreatic mass or cyst. Right Kidney: Normal size of the right kidney. There is no demonstrated renal mass or cyst. There is no right hydronephrosis. US/Abdomen Limited
== END ==
PROVIDERS: PCP Family Medicine; Referring Provider Internal Medicine Gastroenterology; Visit Provider Internal Medicine Gastroenterology
DX: R16.0 Hepatomegaly, not elsewhere classified (principal); K76.0 Fatty (change of) liver, not elsewhere classified
CPT/HCPCS: 76705; 76981

== ENCOUNTER 2021-11-22 05:31 | Day surgery (SDC) | payer OTHER, SELFPAY ==
[2021-11-22 06:00] VITALS: BP 143/104; PULSE 70; RESP 16; TEMP 36.1; O2SAT 100; BMI 40.4
[2021-11-22] MEDS: Lactated Ringers 1,000 ML 15 ML IV (06:00)
[2021-11-22 06:21] LABS: Bedside Glucose 142 mg/dL (74-106)
--- NOTE | 2021-11-22 06:30 | IMM_PTH ---
PATIENT: GABRIEL WADE LOC: [facility] U#:[id number] AGE/SX: 51/F ROOM: RE11/22/[address]: Dr. Dean Diaz DO : 1970 BED: DIS: 11/22/2021 SPEC #: [id number] RECD: 11/22/21 12:19 STATUS: TYRA REQ #: [id number] MAGNUS: 11/22/21 06:[address]: Dean Diaz DEPT: IMMUNOHISTOCHEMISTRY RECD BY: Teresa Alcantar ENTERED: 11/22/21 12:20 SP TYPE: IMMUNO OTHR DR: Dr. Chikis Montana MD Tissues: A - Pyloric antrum Procedures: H Pylori (initial) PHYSICIAN & INSTITUTION [place] [id number] SPECIMEN INFORMATION: Tissue Source: A ? Prepyloric ulcer biopsy Clinical Info: Diarrhea Specimen Number: [id number] CPT code: 07194 METHODOLOGY: Deparaffinized sections of prefer/formalin-fixed tissue or PAP/DQ stained slides are incubated with monoclonal/polyclonal antibodies/oligonucleotide probes. Localization is made via biotin free immunoperoxidase method. Appropriate controls are performed and reacted as expected. Results on target cell population are indicated in the following table: RESULTS: ANTIBODY / CLONE RESULT Block A H Pylori (polyclonal) negative These tests were developed and their performance characteristics determined by [facility]. They may not have been cleared or approved by the U.S. Food and Drug Administration. The FDA has determined that such clearance or approval is not necessary. INTERPRETATION: A. Prepyloric ulcer, biopsy: Negative for Helicobacter pylori organisms. AM:diane 11/23/2021
--- NOTE | 2021-11-22 06:30 | EGD_PTH ---
PATIENT: GABRIEL WADE LOC: [facility] U#:[id number] AGE/SX: 51/F ROOM: RE11/22/[address]: Dr. Dean Diaz DO : 1970 BED: DIS: 11/22/2021 SPEC #: [id number] RECD: 11/22/21 09:41 STATUS: TYRA RELandon #: [id number] MAGNUS: 11/22/21 06:[address]: Dean Diaz DEPT: SURGICAL PATHOLOGY RECD BY: Tara Jacobson ENTERED: 11/22/21 10:47 SP TYPE: EGD BIOPSY OT DR: Dr. Chikis Montana MD Tissues: A - Pyloric antrum B - Duodenum, NOS C - Esophagus, NOS Procedures: Special Stain Group II Surgery Specimen Level IV Alcian Blue/PAS (control) HEADER OPERATION: EGD with biopsies (MAC) PRE-OP DIAGNOSIS: Diarrhea TISSUE SUBMITTED: A - Prepyloric ulcer biopsy, B - Duodenum biopsy, C - Distal esophagus biopsy MICROSCOPIC DIAGNOSIS A. Prepyloric ulcer, biopsy: Ulceration with associated acute and chronic inflammation and early granulation. B. Duodenum, biopsy: Acute duodenitis. C. Distal esophagus, biopsy: Gastroesophageal junctional mucosa with chronic inflammation. Focal changes of reflux. No evidence of goblet cell metaplasia. See comment. AM:diane 11/23/2021 COMMENT C. Alcian blue/PAS stain with matched control supports the above diagnosis. MICROSCOPIC DESCRIPTION Slides are reviewed. GROSS DESCRIPTION A - Received in fixative is one container labeled with the patient's name and designated prepyloric ulcer. The specimen consists of multiple irregular fragments of light robison soft tissue that in aggregate measure 0.7 x 0.5 x 0.1 cm. The specimen is totally submitted in one cassette. B - Received in fixative is one container labeled with the patient's name and designated duodenum biopsy. The specimen consists of two irregular fragments of light robison soft tissue that in aggregate measure 0.6 x 0.3 x 0.1 cm. The specimen is totally submitted in one cassette. C - Received in fixative is one container labeled with the patient's name and designated distal esophagus biopsy. The specimen consists of multiple irregular fragments of light robison soft tissue that in aggregate measure 2.5 x 0.6 x 0.1 cm. The specimen is totally submitted in one cassette. / AM:diane 11/22/2021 TC:3 CPT: 13580 x3, 21287
--- NOTE | 2021-11-22 06:41 | PCM.HP.BLA ---
History and Physical Date of Admission: 11/22/21 51 F who presents to the office today for Initial visit 07/07/21 for evaluation of diarrhea. Stool studies were performed and found to be negative. EGD and colonoscopy last performed 2019 with possible need to repeat noted. CRP noted to be elevated 07/07/21 with a normal ESR. Last visit 08/22/21 where steatosis of liver, hepatomegaly and obesity were addressed following identification of liver issues during 08/02/21 CT abd/pel. She was continuing to have abdominal pain, diarrhea, bloating which were better regarding frequency but still present. She reported a lot of increased stress at that time due to father being placed in hospice care and spending time with him. She was started on actos, ursodiol and vitamin E for her liver. Phentermine was started to address obesity. Called 09/14/20 to report that she was still having difficulty with diarrhea. Overall issues have gotten better since starting the urosodiol for There were two occasions in three weeks in which it was an urgent situation which is an improvement. Also reporting that regular BM is loose, but starting to have some formation to it. Advised to increase fiber using a supplement. She had concerns at this time also that her gastric ulcers as seen previously may need to be reevaluated. Feels she is doing better since last visit. RUQ aching pain has reduced in intensity and frequency. Diarrhea frequency has reduced. Continues to have bad days versus good days and feels like this has gotten better, she called last week and recommendation was made to institute fiber one gummie a day (two causes her to have gas) and this has been somewhat helpful. Diarrhea continues several times a week. Stools have been more solid which she relates to improved diet and fiber institution. Feels diarrhea may be stress related. Stress is related to father in hospice, mother who she is primary caregiver for. She was unable to fill phentermine at this time. Reports weight loss of 12 pounds in the last two to three months. History of gastric ulcers, EGD scheduled for November Constitutional: No anorexia, fatigue, fever(s), weight change or sleep problems Eyes Eyes: No change in vision ENT ENT: No abnormal hearing, difficulty swallowing, mouth lesions, tongue swelling or throat swelling Resp Respiratory: No cough or shortness of breath Cardio Cardiology: No chest pain at rest, chest pain with exertion, shortness of breath or dyspnea on exertion Gastro GI: No difficulty swallowing Genitourinary-Female: No difficulty urinating or burning urination Musc Musculoskeletal: No joint pain, joint swelling, muscle weakness or decreased muscle mass Skin Skin: No hair loss in leg, yellowing of the eye, itchy eyes, rash, skin ulcer or skin swelling Neuro Neurology: No abnormal hearing, abnormal movements, confusion, unsteady gait/balance or memory loss Psych Psychiatric: No anxiety, No confusion and No memory loss Endo Endocrine: No fatigue or weight change Aller/Imm Allergy/Immunologic: No itchy eyes, throat swelling or tongue swelling Baldemar/Lymp Hematologic/Lymphatic: No easy bleeding, easy bruising or enlarged lymph nodes Exam Const General: cooperative and comfortable Nutritional Appearance: average body habitus and well nourished HENMT Head: normal to inspection Ears: hearing grossly normal bilaterally Nose: external nose normal Face and sinus: normal facial exam Mouth: oral mucosae normal Throat: posterior oropharynx normal Eyes General: appearance normal, both eyes and all related structures Neck Neck: normal visual inspection Chest Chest palpation & inspection: normal inspection of the chest and normal palpation of entire chest wall Resp Effort & Inspection: normal respiratory effort Auscultation: Bilateral: Clear to Auscultation Cardio Palpation: normal PMI Rate: regular rate Rhythm: regular rhythm GI Inspection: normal to inspection Auscultation: normal bowel sounds Percussion: normal to percussion Palpation: no hepatosplenomegaly Skin General: no rashes or lesions noted Neuro General: patient alert Extrem General: normal to inspection Psych Affect: normal affect Quality Reporting Tobacco Screening ([facility]) Smoking Status: Never smoker Assessment and Plan Assessment and Plan (1) Hepatomegaly: Status: Acute Plan - Dr. Moran Friend, DO: She has an F2 to F3 fibrosis score. She is o Actos, vitamin E, vitamin D and we have discussed weight loss. I have given her some documentation regarding recommendations for weight loss. We went over those today. She has lost 12 pounds through better eating choices. At this time she does not want to see the dietitian. (2) Obesity: Status: Acute Plan - Dr. Moran Friend, DO: She does not want to see the editor at large at this time. She is willing to try phentermine for short course. I will give her prescription today. We discussed side effects of the medicine possibly having her heart race. If she experiences any symptoms she is to give me a call 24 hours a day. (3) Diarrhea: Status: Acute Plan - Dr. Moran Friend, DO: I put her on Fiber Choice tablets to help her with her diarrhea because the fiber Gummies were helping but they were making her bloated. I have re-examined the patient. There are no clinical changes since date of exam.
[2021-11-22 06:57] VITALS: BP 124/74; BP 143/104; PULSE 84; RESP 16; TEMP 36.1; O2SAT 96
[2021-11-22 07:00] VITALS: BP 107/77; BP 143/104; PULSE 79; RESP 16; O2SAT 97
--- NOTE | 2021-11-22 07:02 | OP.EGD_ITS ---
Patient Name: Ernestina Monique Procedure Date: 11/22/2021 6:27 AM Date of : 1970 Age: 51 Procedure: Upper GI endoscopy Indications: Epigastric abdominal pain, Functional Dyspepsia Providers: Dean Diaz DO Medicines: See the Anesthesia note for documentation of the administered medications Patient Profile: This is a 51 year old female. Patient has symptoms of chronic abdominal cramping. Complications: No immediate complications. Procedure: Pre-Anesthesia Assessment: - Prior to the procedure, a History and Physical was performed, and patient medications and allergies were reviewed. The patient is competent. The risks and benefits of the procedure and the sedation options and risks were discussed with the patient. All questions were answered and informed consent was obtained. Patient identification and proposed procedure were verified by the physician in the pre-procedure area. Mental Status Examination: alert and oriented. Airway Examination: normal oropharyngeal airway and neck mobility. Respiratory Examination: clear to auscultation. CV Examination: normal. Prophylactic Antibiotics: The patient does not require prophylactic antibiotics. Prior Anticoagulants: The patient has taken no previous anticoagulant or antiplatelet agents. ASA Grade Assessment: II - A patient with mild systemic disease. After reviewing the risks and benefits, the patient was deemed in satisfactory condition to undergo the procedure. The anesthesia plan was to use moderate sedation / analgesia (conscious sedation). Immediately prior to administration of medications, the patient was re-assessed for adequacy to receive sedatives. The heart rate, respiratory rate, oxygen saturations, blood pressure, adequacy of pulmonary ventilation, and response to care were monitored throughout the procedure. The physical status of the patient was re-assessed after the procedure. After obtaining informed consent, the endoscope was passed under direct vision. Throughout the procedure, the patient's blood pressure, pulse, and oxygen saturations were monitored continuously. The gastroscope was introduced through the mouth, and advanced to the second part of duodenum. The upper GI endoscopy was accomplished without difficulty. The patient tolerated the procedure well. Moderate Sedation: Moderate (conscious) sedation was administered by the endoscopy nurse and supervised by the endoscopist. The patient's oxygen saturation, heart rate, blood pressure and response to care were monitored. Total physician intraservice time was 15 minutes. Scope In: 6:46:44 AM Scope Out: 6:52:53 AM Total Procedure Duration Time 0 hours 6 minutes 9 seconds Findings: LA Grade A (one or more mucosal breaks less than 5 mm, not extending between tops of 2 mucosal folds) esophagitis with no bleeding was found 34 to 35 cm from the incisors. Biopsies were taken with a cold forceps for histology. Verification of patient identification for the specimen was done. Estimated blood loss was minimal. Three non-bleeding gastric ulcers with no stigmata of bleeding were found in the prepyloric region of the stomach. The largest lesion was 5 mm in largest dimension. Biopsies were taken with a cold forceps for histology. Verification of patient identification for the specimen was done. Estimated blood loss was minimal. Patchy moderate inflammation characterized by congestion (edema) and granularity was found in the duodenal bulb, in the first portion of the duodenum and in the second portion of the duodenum. Biopsies were taken with a cold forceps for histology. Verification of patient identification for the specimen was done. Estimated blood loss was minimal. Impression: - LA Grade A reflux esophagitis. Biopsied. - Non-bleeding gastric ulcers with no stigmata of bleeding. Biopsied. - Duodenitis. Biopsied. Recommendation: - Discharge patient to home. - Resume previous diet. - Continue present medications. - Await pathology results. - Repeat upper endoscopy in 1 year for surveillance. - Return to GI office. Procedure Code(s): --- Professional --- 38483, Esophagogastroduodenoscopy, flexible, transoral; with biopsy, single or multiple 53112, 59, Moderate sedation services provided by the same physician or other qualified health rehab care assistant performing the diagnostic or therapeutic service that the sedation supports, requiring the presence of an independent trained observer to assist in the monitoring of the patient's level of consciousness and physiological status; initial 15 minutes of intraservice time, patient age 5 years or older CPT copyright 2017 [employer]. All rights reserved. The codes documented in this report are preliminary and upon drain tiler review may be revised to meet current compliance requirements. Dean Diaz DO 11/22/2021 7:01:58 AM This report has been signed electronically. Number of Addenda: 1 Note Initiated On: 11/22/2021 6:27 AM Addendum Number: 1 Addendum Date: 06/08/2022 6:31:58 AM MAC was used as sedation for this procedure. Dean Diaz DO 06/08/2022 6:32:04 AM This report has been signed electronically.
--- NOTE | 2021-11-22 07:03 | OP.CCLET_ITS ---
06/08/2022 Chikis Montana [place] [id number] [address] Re : Upper GI endoscopy procedure for Ernestina Hyacinthdamian Dear Dr. [place] This procedure was performed on Monday, November 22, 2021. My impressions and recommendations are as follows: Impressions : - LA Grade A reflux esophagitis. Biopsied. - Non-bleeding gastric ulcers with no stigmata of bleeding. Biopsied. - Duodenitis. Biopsied. Recommendations : - Discharge patient to home. - Resume previous diet. - Continue present medications. - Await pathology results. - Repeat upper endoscopy in 1 year for surveillance. - Return to GI office. My findings are described in the full procedure note, which is enclosed. If I can be of further assistance, please feel free to contact me at . Sincerely, Dean Friend, 11/22/2021 7:01:58 AM This report has been signed electronically.
[2021-11-22 07:05] VITALS: BP 112/74; BP 143/104; PULSE 73; RESP 16; O2SAT 98
[2021-11-22 07:10] VITALS: BP 134/90; BP 143/104; PULSE 82; RESP 16; TEMP 36.3; O2SAT 98
[2021-11-22 08:03] VITALS: BP 143/104
== END 2021-11-22 23:59 | disposition home or self-care (01) ==
LOC: EN 05:31 → AC 05:33
PROVIDERS: PCP Family Medicine; Referring Provider Family Medicine; Visit Provider Internal Medicine Gastroenterology
PROC: 0DJ08ZZ Inspection of Upper Intestinal Tract, Via Natural or Artificial Opening Endoscopic (ICD-10-PCS; CPT 43235; principal; 2021-11-22 06:25)
DX: K25.9 Gastric ulcer, unspecified as acute or chronic, without hemorrhage or perforation (principal); E11.9 Type 2 diabetes mellitus without complications; K29.80 Duodenitis without bleeding; K21.00 Gastro-esophageal reflux disease with esophagitis, without bleeding; K76.0 Fatty (change of) liver, not elsewhere classified; E66.9 Obesity, unspecified; Z87.440 Personal history of urinary (tract) infections; Z79.899 Other long term (current) drug therapy; I10 Essential (primary) hypertension; Z78.0 Asymptomatic menopausal state
CPT/HCPCS: 43239; 82962; 88305; 88313; 88342; J7120; J2405

== ENCOUNTER 2022-02-21 16:30 | Outpatient (RCR) | payer OTHER, SELFPAY ==
--- NOTE | 2022-01-10 07:49 | HP.PTEVAL_ITS ---
Patient's Visit Information GABRIEL WADE is a 51 year old F referred to Physical Therapy by Dr. Celestino Cortez DO with a diagnosis of Left Hip DJD. Date of Evaluation: 01/10/22 Physical Therapist: Juana Horne DPT - Visit Plan Frequency: 2x /Week Duration: 4 Weeks Plan: 2x3 Aquatics then 2x3 Land- all with progression to [facility]. Focus on LE and core strength/stabilization - Subjective Patient reports that she has left hip pain- started a couple of years ago- pulled a groin muscle- but is unsure of exactly how it happened- and the pain normally comes and goes. What finally made her make the apt she was having a hard time walking across the room. Went to MD who reports she has OA but she is unsure if that is the exact cause. She feels that something goes out of place. The pain is the groin and deep in the joint- radiates to the greater troch area and down to the knee. MD wants her to strengthen and walk more. She walked more and it felt better but she was on her feet all weekend too. She feels like she doesn't want to make the wrong move and doesn't trust it. She feels that the leg will buckle underneath her. When sitting in the car she has to sit first then pull her legs in. Best: 0/10 Eases: sitting Agg: stairs (down is worse), being on her feet to long. Worst: 6/10. Describes the pain as dull achy when she is not as active- sharp when walking. No N/T in the toes. No loss or teresita nge in bowel or bladder. No back pain- no trauma. 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 She plans to get up more now that the weather is nice. She will travel for the next few days (car travel) and then back at a desk. Sleep: if its aggravated she has to be careful rolling over- but it has not been recent. No orthotics- but does have history of plantar fasciitis. X-rays: mild OA. PMHx: dying liver, DM Type 2, HTN, stomach ulcers Meds: no changes since saw Dr. Gonzalez. - Objective Posture: FH, RS, increased kyphosis- can correct with verbal cues but does not maintain. Gait: slightly antalgic- decreased stance on the LE with mild hip drop. Stairs: asc recip with 1 HR and increased push off, Desc: prefers step to pattern but can perform recip with 2 HR and decreased control with descent and trunk rotation. HR/TR: able without pain but does use UA for balance. SLS: 3 sec then LOB moderate hip drop. Palpation: tender along quad and ITBand- greater troch and into the gluts on the left. ROM: WFL with increased pain with IR/ER of the hip. Hip flexion increases pain at end range. Strength: Core: fair minus, Hip: flexion: 4/5, Abd: 4-/5, IR/ER 4-/5 and reports unstable, Ext: 4/5, Knee: 5/5, Ankle: 5/5. Flex: HS: severe, Gastroc: moderate. Special Test: LLD: negative, Pelvic Alignment: negative. - Special Tests L/S Slump test left side: Negative L/S Slump test right side: Negative L/S Left Straight Leg Raise: Negative L/S Right Straight Leg Raise: Negative L Hip Scour: Positive L Hip MARA - Intraarticular Pathology: Positive L Hip FADDIR - Labrum: Positive L Hip Trendelenberg - Glut Medius: Positive L Hip Siomara - IT Band: Positive - Balance/Special Test Scores Lower Extremity Functional Score: 41 - Goals Goal 1:: Patient will be I with HEP and progression Goal Time Frame: 4-6 Weeks Goal 2:: Patient will ambulate >300 feet with a normalized gait pattern Goal Time Frame: 4-6 Weeks Goal 3:: Patient will asc/desc 8 stairs recip with 1 HR Goal Time Frame: 4-6 Weeks Goal 4:: Patient will report 80% improvement Goal Time Frame: 4-6 Weeks - Rehabilitation Potential Physical Therapy Diagnosis: Patient presents with hypomobility- she has decreased LE and core strength/stabilization, flexibility and muscular endurance leading to poor posture and increased pain with ADL's. Rehabilitation Potential: Good - Anticipated Interventions Patient/Client Instruction: Educate patient on: Benefits of Fitness Program Therapeutic Exercise to Include: Strength training, Endurance training, Balance training, Coordination, Agility training, Body mechanics, Postural training, Flexibilty training, Gait and locomotor training, Dynamic Lumbar Stabilization, Scapular Strength/Stabilization For the Purpose of:: To improve muscle performance and motor function Functional Training to Include: Gait training Thank you for the opportunity to evaluate your patient. For Medicare and Medicare HMO plans, please review the plan of care and approve it. It will need to be FAXED BACK to us at [phone] for Medicare purposes. For Medicare only, by signing this I certify the plan of care. Please let me know if there are questions or concerns regarding this plan of care. Physician Signature: Date:
== END 2022-02-21 19:00 | disposition home or self-care (01) ==
LOC: PT 16:30
PROVIDERS: PCP Family Medicine; Referring Provider Orthopaedic Surgery; Visit Provider Orthopaedic Surgery
DX: M16.12 Unilateral primary osteoarthritis, left hip (principal)
CPT/HCPCS: 97110; 97113; 97162

== ENCOUNTER → 2022-05-10 | Outpatient (CLI) | payer OTHER, SELFPAY | END | disposition home or self-care (01) | PROVIDERS: PCP Family Medicine; Referring Provider Family Medicine; Visit Provider Family Medicine | DX: R00.0 Tachycardia, unspecified (principal); I10 Essential (primary) hypertension | CPT/HCPCS: 93225; 93226 ==

== ENCOUNTER → 2022-05-13 | Outpatient (CLI) | payer OTHER, SELFPAY ==
--- NOTE | 2022-05-13 07:26 | US_ITS ---
STUDY: ABDOMINAL ULTRASOUND - ELASTOGRAPHY REASON FOR VISIT: Female, 52 years old. Fatty infiltration of the liver. TECHNIQUE: Liver stiffness measurements were obtained on a [employer] RS 85 ultrasound machine using a CA 1-7 probe following the SRU guidelines. 3 measurements were obtained using a 2-D-SWE method. The IQR/M was 25 % suggesting a quality data set. TECHNICAL QUALITY: Adequate. COMPARISON: Comparison is made with prior examination done earlier today. FINDINGS: Liver: Hepatomegaly and fatty infiltration of the liver. Median liver stiffness measured 8.7 kPa. US/Elastography Parenchyma/Organ IMPRESSION: Liver stiffness measures 8.7 kPa compatible with F2-F3 (Mild to moderate liver fibrosis) Metavir score. Electronically Signed: Raul Dodge MD at 9:17 EDT ,
--- NOTE | 2022-05-13 07:26 | US_ITS ---
STUDY: ABDOMINAL ULTRASOUND - RIGHT UPPER QUADRANT REASON FOR VISIT: Female, 52 years old . Fatty infiltration of the liver. TECHNIQUE: Ultrasound evaluation of the right upper quadrant was performed with real-time and static asntana-scale imaging. TECHNICAL QUALITY: Limited. Examination limited due to obesity. COMPARISON: Comparison is made with prior study dated 08/10/2021. FINDINGS: Liver: The liver the liver is enlarged and measures 19.9 cm. There is increased echogenicity consistent with fatty infiltration. The bile ducts are within normal limits. There is hepatic color flow. The direction of portal flow is hepatopetal. There is no demonstrated mass lesion. Gallbladder: The patient is status post cholecystectomy. Common Bile Duct (C.B.D.): The common bile duct measures 5.0 mm. Pancreas: Normal size of the head, body and tail of the pancreas. There is normal echogenicity of the pancreas. There is no demonstrated pancreatic mass or cyst. Right Kidney: Normal size of the right kidney. The right kidney measures 11.3 cm x 5.5 cm x 4.4 cm. Normal renal cortex. The right cortex measures 1.1 cm. There is no demonstrated renal mass or cyst. There is no right hydronephrosis. US/Abdomen Limited IMPRESSION: Hepatomegaly and fatty infiltration of the liver. Electronically Signed: Raul Dodge MD at 9:16 EDT ,
== END | disposition home or self-care (01) ==
LOC: US 07:23
PROVIDERS: PCP Family Medicine; Referring Provider Internal Medicine Gastroenterology; Visit Provider Internal Medicine Gastroenterology
DX: K76.0 Fatty (change of) liver, not elsewhere classified (principal)
CPT/HCPCS: 76705; 76981

== ENCOUNTER → 2022-06-17 | Outpatient (CLI) | payer OTHER, SELFPAY ==
--- NOTE | 2022-06-17 16:02 | US_ITS ---
US Soft Tissue Back 06/17/2022 4:07 PM CLINICAL HISTORY: POSSIBLE LIPOMA- LT UPPER BACK PALP LUMP COMPARISON: None TECHNIQUE: Sonographic evaluation of the posterior left upper back was performed. FINDINGS: Somewhat isoechoic mass in the left upper posterior chest wall corresponding to the palpable abnormality measuring about 5.8 x 6.2 x 2 cm without evidence of flow sonographically most consistent with lipoma. Other etiologies are less likely. US/Ext Non Vasc Limited/Soft Tiss IMPRESSION: Palpable isoechoic somewhat well-defined mass in the left upper posterior chest wall sonographically most consistent with lipoma. Follow-up examination in few months is recommended if clinically indicated. Electronically Signed: Ryley Duong MD at 9:56 EDT ,
== END | disposition home or self-care (01) ==
LOC: US 16:00
PROVIDERS: PCP Family Medicine; Referring Provider Family Medicine; Visit Provider Family Medicine
DX: D17.9 Benign lipomatous neoplasm, unspecified (principal)
CPT/HCPCS: 76882

== ENCOUNTER 2022-08-09 11:02 | Outpatient (CLI) | payer OTHER, SELFPAY ==
--- NOTE | 2022-08-09 11:04 | BI_ITS ---
MAMMOGRAPHY - BILATERAL SCREENING REASON FOR EXAM: Female, 52 years old. Routine annual screening examination. PERTINENT HISTORY: Non-contributory. TECHNIQUE: Digital bilateral breast ranjana (3D mammographic acquisition) in the CC and MLO projections. 2-D mediolateral oblique (MLO) and craniocaudad (CC) views of both breasts were obtained. CAD: Full Field Digital Mammography with Computer Added Detection was performed. COMPARISON: Comparison is made with prior study dated 08/06/2021 and 06/10/2020. FINDINGS: Breast Composition: The breasts are heterogeneously dense, which may obscure small masses. There are no dominant masses or suspicious calcifications. Stable asymmetry of breast tissue where more breast tissue is seen in the upper-outer quadrant of the left breast as compared to the right side. Stable small benign appearing bilateral axillary lymph nodes. No other significant abnormalities are identified. There has been no significant change since the prior study. BI/SCRN MAMM (CAD)W/RANJANA BILAT IMPRESSION: Stable bilateral screening mammogram. Yearly follow-up mammogram recommended. (A) ASSESSMENT CATEGORY: BIRADS Category 2: Benign. A letter regarding these results will be sent to the patient by the facility within 30 days. Approximately 10% of breast cancers are not detected by mammography. A normal mammogram should not delay biopsy of a clinically suspicious abnormality. [id number] Electronically Signed: Raul Dodge MD at 13:01 EST ,
== END 2022-08-09 23:59 | disposition home or self-care (01) ==
LOC: OPBI 11:03
PROVIDERS: PCP Family Medicine; Referring Provider Family Medicine; Visit Provider Family Medicine
DX: Z12.31 Encounter for screening mammogram for malignant neoplasm of breast (principal)
CPT/HCPCS: 77063; 77067

== ENCOUNTER → 2022-12-20 | Outpatient (CLI) | payer OTHER, SELFPAY ==
[2022-12-20 10:26] LABS: Absolute Lymphocyte Count 2.11 X10^3/uL (0.83-4.51); Absolute Neutrophil Count 4.6 X10^3/uL (2.0-7.7); Basophil# 0.02 X10^3/uL; Basophil% 0.3 % (0-1); Eosinophil# 0.15 X10^3/uL; Hematocrit 44.1 % (37-47); Hemoglobin 13.8 g/dL (12.0-15.0); Lymphocyte # 2.11 X10^3/ul (0.83-4.51); Lymphocyte % 28.6 % (19-41); Mean Corp Hgb Conc 31.3 g/dL (32-36); Mean Corpuscular Volume 89.5 fL (81-99); Mean Platelet Vol. 11.7 fl (6.2-12.0); Monocyte# 0.49 X10^3/uL; Monocyte% 6.6 % (0-10); NRBC Flagged by Analyzer 0 % (0-5); Neutrophil # 4.55 X10^3/uL (2.7-7.7); Neutrophil % 61.8 % (47-70); Platelet Count 268 K/mm3 (150-450); RBC Distribution Width CV 13.1 % (11.6-14.6); RBC Distribution Width SD 42.8 fl (35.1-43.9); Red Blood Count 4.93 M/mm3 (4.2-5.4); White Blood Count 7.4 K/mm3 (4.4-11.0)
[2022-12-20 11:33] LABS: ALB/GLOB Ratio 0.8 RATIO (0.9-2.4); AST(SGOT) 19 U/L (15-37); Alanine Aminotransfer ALT/SGPT 58 U/L (13-56); Albumin, Serum 3.5 g/dL (3.2-5.0); Alkaline Phosphatase 81 U/L (45-117); Anion Gap 3 (5-15); BUN 15 mg/dL (7-18); BUN/Creat Ratio 17.5 RATIO (10-20); Calcium,Total 9.2 mg/dL (8.5-10.1); Chloride 109 mmol/L (98-107); Cholesterol 181 mg/dL (200); Creatinine, Serum 0.86 mg/dL (0.55-1.02); EST Glomerular Filtration Rate 74 mL/min (>60); Est Glom Filt Rate - Afr Amer 89 mL/min (>60); Globulin 4.2 g/dL (2.2-4.2); Glucose 186 mg/dL (74-106); High Density Lipoprotein 38 mg/dL; Potassium 4.2 mmol/L (3.5-5.1); Protein, Total 7.7 g/dL (6.4-8.2); Sodium Level 138 mmol/L (136-145); Thyroid Stim Hormone (TSH) 2.71 uIU/mL (0.358-3.74); Triglycerides 108 mg/dL; Very Low Density Lipoprotein 22 mg/dL (5-40)
== END | disposition home or self-care (01) ==
PROVIDERS: PCP Family Medicine; Referring Provider Family Medicine; Visit Provider Family Medicine
DX: I10 Essential (primary) hypertension (principal); E11.9 Type 2 diabetes mellitus without complications; K76.0 Fatty (change of) liver, not elsewhere classified
CPT/HCPCS: 36415; 80053; 80061; 83036; 84443; 85025

== ENCOUNTER → 2023-01-04 | Outpatient (CLI) | payer OTHER, SELFPAY ==
--- NOTE | 2023-01-04 09:50 | US_ITS ---
STUDY: ABDOMINAL ULTRASOUND - ELASTOGRAPHY REASON FOR VISIT: Female, 52 years old. Fatty infiltration of the liver. TECHNIQUE: Liver stiffness measurements were obtained on a [employer] RS 85 ultrasound machine using a CA 1-7 probe following the SRU guidelines. 3 measurements were obtained using a 2-D-SWE method. TheIQR/M was 17 % suggesting a quality data set. TECHNICAL QUALITY: Adequate. COMPARISON: None. FINDINGS: Liver: Fatty infiltration of the liver. Median liver stiffness measured 10.3 kPa. Abdomen: There is no demonstrated mass lesion. US/ABD Limited w/ Elastography IMPRESSION: Liver stiffness measures 10.3 kPa compatible with F2-F3 (Mild to moderate liver fibrosis) Metavir score. Electronically Signed: Raul Dodge MD at 15:30 EDT ,
== END | disposition home or self-care (01) ==
LOC: US 09:49
PROVIDERS: PCP Family Medicine; Referring Provider Internal Medicine Gastroenterology; Visit Provider Internal Medicine Gastroenterology
DX: R16.0 Hepatomegaly, not elsewhere classified (principal); E66.9 Obesity, unspecified
CPT/HCPCS: 76705; 76981

== ENCOUNTER → 2023-02-01 | Outpatient (CLI) | payer OTHER, SELFPAY | END | disposition home or self-care (01) | LOC: LABSPEC 13:29 | PROVIDERS: PCP Family Medicine; Referring Provider Nurse Practitioner Family; Visit Provider Nurse Practitioner Family | DX: R30.0 Dysuria (principal) | CPT/HCPCS: 87086; 87088; 87186 ==

== ENCOUNTER → 2023-06-21 | Outpatient (CLI) | payer OTHER, SELFPAY ==
--- NOTE | 2023-06-21 07:50 | US_ITS ---
STUDY: ABDOMINAL ULTRASOUND - RIGHT UPPER QUADRANT; ELASTOGRAPHY REASON FOR VISIT: Female, 53 years old. TECHNIQUE: Ultrasound evaluation of the right upper quadrant was performed with real-time and static santana-scale imaging. Point quantification shear wave elastography was performed ([email or web address]). TECHNICAL QUALITY: Adequate. COMPARISON: Comparison is made with prior study dated January 04, 2023. FINDINGS: Liver: The liver is enlarged and measures 19.9 cm. There is increased echogenicity consistent with fatty infiltration. The bile ducts are within normal limits. There is hepatic color flow. The direction of portal flow is hepatopetal. There is no demonstrated mass lesion. Median liver stiffness measured 7.8 kPa. Gallbladder: The patient is status post cholecystectomy. Common Bile Duct (C.B.D.): The common bile duct measures 5.6 mm. Pancreas: There is increased echogenicity of the pancreas. There is no demonstrated pancreatic mass or cyst. Right Kidney: Normal size of the right kidney. The right kidney measures 12.3 cm x 5.2 cm x 4.7 cm. Normal renal cortex. The right cortex measures 1.1 cm. There is no demonstrated renal mass or cyst. There is no right hydronephrosis. US/ABD Limited w/ Elastography IMPRESSION: 1. Liver stiffness measures 7.8 kPa compatible with F2-F3 (Mild to moderate liver fibrosis) Metavir score. Electronically Signed: Raul Dodge MD at 9:16 EDT ,
== END | disposition home or self-care (01) ==
LOC: US 07:50
PROVIDERS: PCP Family Medicine; Referring Provider Internal Medicine Gastroenterology; Visit Provider Internal Medicine Gastroenterology
DX: K76.0 Fatty (change of) liver, not elsewhere classified (principal)
CPT/HCPCS: 76705; 76981

== ENCOUNTER 2023-06-28 09:41 | Day surgery (SDC) | payer OTHER, SELFPAY ==
[2023-06-28] VITALS (7 sets, daily range): BP systolic 87–119; BP diastolic 29–64; PULSE 75–92; RESP 16–18; TEMP 36.4–36.7; O2SAT 95–100; BMI 38.2
--- NOTE | 2023-06-28 09:58 | HP.PCM_ITS ---
History and Physical Date of Admission: 06/28/23 Chief Complaint: hepatitis C Details: TAYLOR BECERRIL, is a 46 F who presents to the office today to establish with GI for hepatitis C which was diagnosed in 2021. She thinks she was infected in 2020, used IV drugs then, she didn't know her then-boyfriend was positive for hepatitis C and hepatitis B. She is immune to hepatitis B (03/2022 hep B surf ab positive). No prior treatment for hepatitis C. She reports early satiety, bloating, chronic nausea. No vomiting. No dysphagia. Has RUQ and epigastric discomfort intermittently. No heartburn since she took esomeprazole for one week recently. Less constipation since starting a probiotic. No melena or hematochezia. She has fatigue, hair loss, weight gain. No jaundice. Has generalized pruritus. No rash. No ascites or edema. Recent AST 242, ALT 585 ROS Const Constitutional: Positive for fatigue and weight change ENT ENT: No difficulty swallowing Gastro GI: Positive for abdominal pain, bloating, constipation and nausea/dyspepsia; No belching, change in bowel habits, change in stool character, coffee ground emesis, cramping, diarrhea, heartburn, difficulty swallowing, feeling full early, excessive flatus, incontinent of stools, Vomiting blood/hematemesis, Blood in stool, loose stools, Black,tarry stools, pain with swallowing, vomiting or other Musc Musculoskeletal: Positive for joint pain, joint swelling, muscle weakness, stiffness and Arthritis Skin Skin: No yellowing of the eye or itchy eyes Psych Psychiatric: No anxiety and Positive for depression Endo Endocrine: Positive for fatigue and weight change Aller/Imm Allergy/Immunologic: No itchy eyes Baldemar/Lymp Hematologic/Lymphatic: No easy bleeding or easy bruising Exam Const General: cooperative and no acute distress Nutritional Appearance: overweight Orientation: alert, awake and oriented x3 Eyes Sclera: sclerae normal Resp Effort & Inspection: normal respiratory effort GI Inspection: normal to inspection Palpation: soft, no hepatosplenomegaly, no masses and nontender Skin General: no rashes or lesions noted and no jaundice Quality Reporting Tobacco Screening ([facility] 138) Smoking Status: Current every day smoker Assessment and Plan Assessment and Plan (1) Hepatitis C: Status: Chronic Plan: Needs [facility] for [facility] ok to continue suboxone Labs today, will check hep C quant, genotype and liver labs; will call her with results and will then treat hep C US/elastography EGD to eval epigastric pain, screening colonoscopy Orders: Orders HIV - [facility] Today B19.20 - Unspecified viral hepatitis C without hepatic coma Comprehensive Metabolic Profil Today B19.20 - Unspecified viral hepatitis C without hepatic coma CRP Today B19.20 - Unspecified viral hepatitis C without hepatic coma Ferritin Today B19.20 - Unspecified viral hepatitis C without hepatic coma LDH Today B19.20 - Unspecified viral hepatitis C without hepatic coma Hemoglobin A1c Today B19.20 - Unspecified viral hepatitis C without hepatic coma Prothrombin Time w/INR Today B19.20 - Unspecified viral hepatitis C without hepatic coma CBC W/Diff, Automated Today B19.20 - Unspecified viral hepatitis C without hepatic coma Erythrocyte Sed Rate Today B19.20 - Unspecified viral hepatitis C without hepatic coma Anti-Mitochondrial AB Today B19.20 - Unspecified viral hepatitis C without hepatic coma TERESA Comprehensive Panel Today B19.20 - Unspecified viral hepatitis C without hepatic coma Hepatitis Panel Acute Today B19.20 - Unspecified viral hepatitis C without hepatic coma Angiotensin Convert Enzyme Today B19.20 - Unspecified viral hepatitis C without hepatic coma AFP, Tumor Marker Today B19.20 - Unspecified viral hepatitis C without hepatic coma ANCA Today B19.20 - Unspecified viral hepatitis C without hepatic coma Anti-Smooth Muscle ABS Today B19.20 - Unspecified viral hepatitis C without hepatic coma Ceruloplasmin Today B19.20 - Unspecified viral hepatitis C without hepatic coma Copper, Serum or Plasma Today B19.20 - Unspecified viral hepatitis C without hepatic coma Haptoglobin Today B19.20 - Unspecified viral hepatitis C without hepatic coma Hepatitis C,RNA PCR Viral Load Today B19.20 - Unspecified viral hepatitis C without hepatic coma Hepatitis C Genotype Today B19.20 - Unspecified viral hepatitis C without hepatic coma Ammonia Today B19.20 - Unspecified viral hepatitis C without hepatic coma Abdomen Limited Today B19.20 - Unspecified viral hepatitis C without hepatic coma Elastography Parenchyma/Organ Today B19.20 - Unspecified viral hepatitis C without hepatic coma I have examined the patient and the H&P has been reviewed. There are no clinical changes since date of exam.
[2023-06-28] MEDS: Lactated Ringers 1,000 ML 15 ML IV (10:06)
[2023-06-28 10:36] LABS: Bedside Glucose 123 mg/dL (74-106)
--- NOTE | 2023-06-28 10:45 | EGD_PTH ---
PATIENT: GABRIEL WADE LOC: EN U#:[id number] AGE/SX: 53/F ROOM: RE06/28/[address]: Dr. Dean Diaz DO : 1970 BED: DIS: 06/28/2023 SPEC #: [id number] RECD: 06/28/23 13:54 STATUS: TYRA REQ #: [id number] MAGNUS: 06/28/23 10:[address]: Dean Diaz DEPT: SURGICAL PATHOLOGY RECD BY: Tara Jacobson ENTERED: 06/29/23 09:42 SP TYPE: EGD BIOPSY OT DR: Dr. Chikis Montana MD Tissues: A - Duodenum, NOS B - Gastric mucous membrane C - Esophagus, NOS Procedures: Special Stain Group II Surgery Specimen Level IV Alcian Blue/PAS (control) HEADER OPERATION: Colonoscopy, EGD with biopsy PRE-OP DIAGNOSIS: Hepatitis C TISSUE SUBMITTED: A - Duodenum biopsy, B - Gastric body biopsy, C - Distal esophagus biopsy MICROSCOPIC DIAGNOSIS A. Duodenum, biopsy: Fragments of duodenal mucosa with acute and chronic inflammation. B. Gastric body, biopsy: Mild gastritis. See microscopic description and comment. C. Distal esophagus, biopsy: Fragments of gastroesophageal mucosa with chronic inflammation. Intestinal metaplasia (goblet cell metaplasia) is not identified. See comment. SJ:diane 06/30/2023 COMMENT B. The results of immunohistochemistry for Helicobacter pylori will be reported separately ([id number]). C. Alcian blue/PAS stain with matched control is used in the evaluation of the specimen. MICROSCOPIC DESCRIPTION Slides are reviewed. B. The specimen shows fragments of gastric mucosa with chronic inflammatory cell infiltrates in the lamina propria consisting of lymphocytes and plasma cells, consistent with mild chronic gastritis. GROSS DESCRIPTION A - Received in fixative is one container labeled with the patient's name and designated duodenum biopsy. The specimen consists of multiple irregular fragments of light robison soft tissue that in aggregate measure 0.8 x 0.2 x 0.1 cm. The specimen is totally submitted in one cassette. B - Received in fixative is one container labeled with the patient's name and designated gastric body biopsy. The specimen consists of multiple irregular fragments of light robison soft tissue that in aggregate measure 1.0 x 0.2 x 0.1 cm. The specimen is totally submitted in one cassette. C - Received in fixative is one container labeled with the patient's name and designated distal esophagus biopsy. The specimen consists of multiple irregular fragments of light robison soft tissue that in aggregate measure 1.0 x 0.3 x 0.1 cm. The specimen is totally submitted in one cassette. / SJ:rg 06/29/2023 TC:2 CPT: 45589 x3, 52689
--- NOTE | 2023-06-28 10:45 | IMM_PTH ---
PATIENT: GABRIEL WADE LOC: EN U#:[id number] AGE/SX: 53/F ROOM: RE06/28/[address]: Dr. Dean Diaz DO : 1970 BED: DIS: 06/28/2023 SPEC #: [id number] RECD: 06/29/23 13:27 STATUS: TYRA REQ #: [id number] MAGNUS: 06/28/23 10:[address]: Dean Diaz DEPT: IMMUNOHISTOCHEMISTRY RECD BY: Teresa Alcantar ENTERED: 06/29/23 13:28 SP TYPE: IMMUNO OTHR DR: Dr. Chikis Montana MD Tissues: B - Stomach, NOS Procedures: H Pylori (initial) PHYSICIAN & INSTITUTION [place] [address] SPECIMEN INFORMATION: Tissue Source: B - Gastric body Clinical Info: Hepatitis C Specimen Number: [id number] CPT code: 45077 METHODOLOGY: Deparaffinized sections of prefer/formalin-fixed tissue or PAP/DQ stained slides are incubated with monoclonal/polyclonal antibodies/oligonucleotide probes. Localization is made via biotin free immunoperoxidase method. Appropriate controls are performed and reacted as expected. Results on target cell population are indicated in the following table: RESULTS: ANTIBODY / CLONE RESULT Block B H Pylori (polyclonal) negative These tests were developed and their performance characteristics determined by [facility]. They may not have been cleared or approved by the U.S. Food and Drug Administration. The FDA has determined that such clearance or approval is not necessary. The above immunohistochemical/dualISH markers are ordered and reviewed by the Pathologist. INTERPRETATION: B. Gastric body, biopsy: Negative for Helicobacter pylori organisms. SJ:diane 06/30/2023
--- NOTE | 2023-06-28 11:09 | OP.EGD_ITS ---
Patient Name: Ernestina Monique Procedure Date: 06/28/2023 10:37 AM Date of : 1970 Age: 53 Procedure: Upper GI endoscopy Indications: Epigastric abdominal pain, Suspected esophageal reflux Providers: Dean Diaz DO Medicines: Monitored Anesthesia Care Patient Profile: Refer to note in patient chart for documentation of history and physical. This is a 53 year old female. Patient has symptoms of chronic abdominal cramping, chronic epigastric abdominal pain and chronic dyspepsia. Complications: No immediate complications. Procedure: Pre-Anesthesia Assessment: - Prior to the procedure, a History and Physical was performed, and patient medications and allergies were reviewed. The risks and benefits of the procedure and the sedation options and risks were discussed with the patient. All questions were answered and informed consent was obtained. Patient identification and proposed procedure were verified by the physician in the pre-procedure area. Mental Status Examination: alert and oriented. Airway Examination: normal oropharyngeal airway and neck mobility. Respiratory Examination: clear to auscultation. CV Examination: normal. Prophylactic Antibiotics: The patient does not require prophylactic antibiotics. Prior Anticoagulants: The patient has taken no anticoagulant or antiplatelet agents. ASA Grade Assessment: II - A patient with mild systemic disease. After reviewing the risks and benefits, the patient was deemed in satisfactory condition to undergo the procedure. The anesthesia plan was to use monitored anesthesia care (MAC). Immediately prior to administration of medications, the patient was re-assessed for adequacy to receive sedatives. The heart rate, respiratory rate, oxygen saturations, blood pressure, adequacy of pulmonary ventilation, and response to care were monitored throughout the procedure. The physical status of the patient was re-assessed after the procedure. After obtaining informed consent, the endoscope was passed under direct vision. Throughout the procedure, the patient's blood pressure, pulse, and oxygen saturations were monitored continuously. The colonoscope was introduced through the mouth, and advanced to the second part of duodenum. The upper GI endoscopy was accomplished without difficulty. The patient tolerated the procedure well. Scope In: 10:46:39 AM Scope Out: 10:50:27 AM Total Procedure Duration Time 0 hours 3 minutes 48 seconds Findings: LA Grade A (one or more mucosal breaks less than 5 mm, not extending between tops of 2 mucosal folds) esophagitis with no bleeding was found 36 to 37 cm from the incisors. Biopsies were taken with a cold forceps for histology. Verification of patient identification for the specimen was done. Estimated blood loss was minimal. A small hiatal hernia was present. Patchy mild inflammation characterized by erosions and erythema was found in the gastric body. Biopsies were taken with a cold forceps for histology. Verification of patient identification for the specimen was done. Biopsies were taken with a cold forceps for histology. Biopsies were taken with a cold forceps for Helicobacter pylori testing. Verification of patient identification for the specimen was done. Estimated blood loss was minimal. No gross lesions were noted in the first portion of the duodenum. Impression: - LA Grade A reflux esophagitis with no bleeding. Biopsied. - Small hiatal hernia. - Bile gastritis. Biopsied. - No gross lesions in the first portion of the duodenum. Recommendation: - Discharge patient to home. - Resume previous diet. - Continue present medications. - Await pathology results. Procedure Code(s): --- Professional --- 72799, Esophagogastroduodenoscopy, flexible, transoral; with biopsy, single or multiple CPT copyright 2021 [employer]. All rights reserved. The codes documented in this report are preliminary and upon blank driller review may be revised to meet current compliance requirements. Dean Diaz DO 06/28/2023 11:09:04 AM This report has been signed electronically. Number of Addenda: 0 Note Initiated On: 06/28/2023 10:37 AM
--- NOTE | 2023-06-28 11:09 | OP.CCLET_ITS ---
06/28/2023 Chikis Montana [place] [id number] [address] Re : Upper GI endoscopy procedure for Ernestina Monique Dear Dr. Montana This procedure was performed on Wednesday, June 28, 2023. My impressions and recommendations are as follows: Impressions : - LA Grade A reflux esophagitis with no bleeding. Biopsied. - Small hiatal hernia. - Bile gastritis. Biopsied. - No gross lesions in the first portion of the duodenum. Recommendations : - Discharge patient to home. - Resume previous diet. - Continue present medications. - Await pathology results. My findings are described in the full procedure note, which is enclosed. If I can be of further assistance, please feel free to contact me at . Sincerely, Dean Diaz, 06/28/2023 11:09:04 AM This report has been signed electronically.
--- NOTE | 2023-06-28 11:11 | OP.COLON_ITS ---
Patient Name: Ernestina Monique Procedure Date: 06/28/2023 10:50 AM Date of : 1970 Age: 53 Procedure: Colonoscopy Indications: Screening for colorectal malignant neoplasm Providers: Dean Diaz DO Medicines: Monitored Anesthesia Care Patient Profile: Refer to note in patient chart for documentation of history and physical. This is a 53 year old female. Patient has symptoms of chronic abdominal cramping, chronic epigastric abdominal pain and chronic dyspepsia. Last Colonoscopy: more than 3 years ago. Complications: No immediate complications. Procedure: Pre-Anesthesia Assessment: - Prior to the procedure, a History and Physical was performed, and patient medications and allergies were reviewed. The risks and benefits of the procedure and the sedation options and risks were discussed with the patient. All questions were answered and informed consent was obtained. Patient identification and proposed procedure were verified by the physician in the pre-procedure area. Mental Status Examination: alert and oriented. Airway Examination: normal oropharyngeal airway and neck mobility. Respiratory Examination: clear to auscultation. CV Examination: normal. Prophylactic Antibiotics: The patient does not require prophylactic antibiotics. Prior Anticoagulants: The patient has taken no anticoagulant or antiplatelet agents. ASA Grade Assessment: II - A patient with mild systemic disease. After reviewing the risks and benefits, the patient was deemed in satisfactory condition to undergo the procedure. The anesthesia plan was to use monitored anesthesia care (MAC). Immediately prior to administration of medications, the patient was re-assessed for adequacy to receive sedatives. The heart rate, respiratory rate, oxygen saturations, blood pressure, adequacy of pulmonary ventilation, and response to care were monitored throughout the procedure. The physical status of the patient was re-assessed after the procedure. After I obtained informed consent, the scope was passed under direct vision. Throughout the procedure, the patient's blood pressure, pulse, and oxygen saturations were monitored continuously. The colonoscope was introduced through the anus and advanced to the cecum, identified by appendiceal orifice and ileocecal valve. The colonoscopy was performed without difficulty. The patient tolerated the procedure well. The quality of the bowel preparation was adequate. The ileocecal valve, appendiceal orifice, and rectum were photographed. Scope In: 10:52:37 AM Scope Withdrawal Time 0 hours 7 minutes 25 seconds Scope Out: 11:02:17 AM Total Procedure Duration Time 0 hours 9 minutes 40 seconds Findings: The perianal and digital rectal examinations were normal. A few small-mouthed diverticula were found in the sigmoid colon. No other significant abnormalities were identified in a careful examination of the remainder of the colon. Impression: - Diverticulosis in the sigmoid colon. - No specimens collected. Recommendation: - Discharge patient to home. - Resume previous diet. - Continue present medications. - Repeat colonoscopy in 5 years for surveillance. Procedure Code(s): --- Professional --- G0121, Colorectal cancer screening; colonoscopy on individual not meeting criteria for high risk CPT copyright 2021 [employer]. All rights reserved. The codes documented in this report are preliminary and upon philosophy faculty review may be revised to meet current compliance requirements. Dean Diaz DO 06/28/2023 11:11:24 AM This report has been signed electronically. Number of Addenda: 0 Note Initiated On: 06/28/2023 10:50 AM
--- NOTE | 2023-06-28 11:11 | OP.CCLET_ITS ---
06/28/2023 Chikis Montana [place] [id number] [address] Re : Colonoscopy procedure for Ernestina Monique Dear Dr. Montana This procedure was performed on Wednesday, June 28, 2023. My impressions and recommendations are as follows: Impressions : - Diverticulosis in the sigmoid colon. - No specimens collected. Recommendations : - Discharge patient to home. - Resume previous diet. - Continue present medications. - Repeat colonoscopy in 5 years for surveillance. My findings are described in the full procedure note, which is enclosed. If I can be of further assistance, please feel free to contact me at . Sincerely, Dean Diaz, 06/28/2023 11:11:24 AM This report has been signed electronically.
== END 2023-06-28 12:06 | disposition home or self-care (01) ==
LOC: EN 09:41 → AC 09:42
PROVIDERS: PCP Family Medicine; Referring Provider Family Medicine; Visit Provider Internal Medicine Gastroenterology
PROC: 0DJD8ZZ Inspection of Lower Intestinal Tract, Via Natural or Artificial Opening Endoscopic (ICD-10-PCS; CPT 45378; principal; 2023-06-28 10:40)
DX: Z12.11 Encounter for screening for malignant neoplasm of colon (principal); K29.80 Duodenitis without bleeding; K44.9 Diaphragmatic hernia without obstruction or gangrene; K21.00 Gastro-esophageal reflux disease with esophagitis, without bleeding; K29.70 Gastritis, unspecified, without bleeding; L29.9 Pruritus, unspecified; K57.30 Diverticulosis of large intestine without perforation or abscess without bleeding; L65.9 Nonscarring hair loss, unspecified; F17.200 Nicotine dependence, unspecified, uncomplicated; Z79.891 Long term (current) use of opiate analgesic
CPT/HCPCS: 45378; 43239; 82962; 88305; 88313; 88342

== ENCOUNTER → 2023-08-16 | Outpatient (CLI) | payer OTHER, SELFPAY ==
--- NOTE | 2023-08-16 07:07 | BI_ITS ---
MAMMOGRAPHY - BILATERAL SCREENING REASON FOR EXAM: Female, 53 years old. Routine annual screening examination. PERTINENT HISTORY: Non-contributory. TECHNIQUE: Digital bilateral breast ranjana (3D mammographic acquisition) in the CC and MLO projections. 2-D mediolateral oblique (MLO) and craniocaudad (CC) views of both breasts were obtained. CAD: Full Field Digital Mammography with Computer Added Detection was performed. COMPARISON: Comparison is made with prior study dated August 09, 2022 and August 06, 2021. FINDINGS: Breast Composition: The breasts are heterogeneously dense, which may obscure small masses. There are no dominant masses or suspicious calcifications. Stable asymmetry of breast tissue were more breast tissue is seen in the upper-outer quadrant of the left breast as compared to the right side. Stable small benign appearing bilateral axillary lymph nodes. No other significant abnormalities are identified. There has been no significant change since the prior study. BI/SCRN MAMM (CAD)W/RANJANA BILAT IMPRESSION: Stable bilateral screening mammogram. Yearly follow-up mammogram recommended. (A) ASSESSMENT CATEGORY: BIRADS Category 2: Benign. A letter regarding these results will be sent to the patient by the facility within 30 days. Approximately 10% of breast cancers are not detected by mammography. A normal mammogram should not delay biopsy of a clinically suspicious abnormality. [id number] Electronically Signed: Ralu Dodge MD at 9:06 EST ,
== END | disposition home or self-care (01) ==
PROVIDERS: PCP Family Medicine; Referring Provider Obstetrics & Gynecology; Visit Provider Obstetrics & Gynecology
DX: Z12.31 Encounter for screening mammogram for malignant neoplasm of breast (principal)
CPT/HCPCS: 77063; 77067

== ENCOUNTER → 2023-12-21 | Outpatient (CLI) | payer OTHER, SELFPAY ==
[2023-12-21 10:56] LABS: ALB/GLOB Ratio 0.9 RATIO (0.9-2.4); AST(SGOT) 18 U/L (15-37); Alanine Aminotransfer ALT/SGPT 39 U/L (13-56); Albumin, Serum 3.5 g/dL (3.2-5.0); Alkaline Phosphatase 74 U/L (45-117); Anion Gap 6 (5-15); BUN 18 mg/dL (7-18); BUN/Creat Ratio 22.2 RATIO (10-20); Chloride 113 mmol/L (98-107); Cholesterol 187 mg/dL (200); Creatinine, Serum 0.81 mg/dL (0.55-1.02); EST Glomerular Filtration Rate 79 mL/min (>60); Est Glom Filt Rate - Afr Amer 95 mL/min (>60); Globulin 3.9 g/dL (2.2-4.2); Glucose 107 mg/dL (74-106); High Density Lipoprotein 50 mg/dL; Potassium 4.1 mmol/L (3.5-5.1); Protein, Total 7.4 g/dL (6.4-8.2); Sodium Level 141 mmol/L (136-145); Triglycerides 74 mg/dL; Very Low Density Lipoprotein 15 mg/dL (5-40)
[2023-12-21 11:11] LABS: Microalbumin,Random Urine 28.5 mg/L (NO RANGE EST.); Microalbumin:Creatinine Ratio 23.8 mg/g CRE (<30 mg/g CRE)
== END | disposition home or self-care (01) ==
LOC: MTLAB 07:13
PROVIDERS: PCP Family Medicine; Referring Provider Nurse Practitioner Family; Visit Provider Nurse Practitioner Family
DX: E11.9 Type 2 diabetes mellitus without complications (principal)
CPT/HCPCS: 36415; 80053; 80061; 82043; 82570; 84443

== ENCOUNTER → 2024-03-06 | Outpatient (CLI) | payer OTHER, SELFPAY ==
--- NOTE | 2024-03-06 09:28 | US_ITS ---
STUDY: ABDOMINAL ULTRASOUND - RIGHT UPPER QUADRANT; ELASTOGRAPHY REASON FOR VISIT: Female, 54 years old. NAFLD TECHNIQUE: Ultrasound evaluation of the right upper quadrant was performed with real-time and static santana-scale imaging. Point quantification shear wave elastography was performed ([employer]). TECHNICAL QUALITY: Adequate. COMPARISON: Comparison is made with prior study June 21, 2023. FINDINGS: Liver: The liver is enlarged and measures 18.3 cm. There is increased echogenicity consistent with fatty infiltration. The bile ducts are within normal limits. There is hepatic color flow. The direction of portal flow is hepatopetal. There is no demonstrated mass lesion. Median liver stiffness measured 6.8 kPa. Gallbladder: The patient is status post cholecystectomy. Common Bile Duct (C.B.D.): The common bile duct measures 5.6 mm. Pancreas: There is increased echogenicity of the pancreas. There is no demonstrated pancreatic mass or cyst. Right Kidney: Normal size of the right kidney. The right kidney measures 11.1 cm x 6 x 4.8 cm. Normal renal cortex. The right cortex measures 1.2 cm. There is no demonstrated renal mass or cyst. There is no right hydronephrosis. US/ABD Limited w/ Elastography IMPRESSION: 1. Liver stiffness measures 6.8 kPa compatible with F2-F3 (Mild to moderate liver fibrosis) Metavir score. Electronically Signed: Raul Dodge MD at 9:39 EDT ,
== END | disposition home or self-care (01) ==
PROVIDERS: PCP Family Medicine; Referring Provider Internal Medicine; Visit Provider Internal Medicine
DX: K76.0 Fatty (change of) liver, not elsewhere classified (principal); E11.9 Type 2 diabetes mellitus without complications
CPT/HCPCS: 76705; 76981

== ENCOUNTER → 2024-04-10 | Outpatient (CLI) | payer OTHER, SELFPAY ==
--- NOTE | 2024-04-10 07:22 | MRI_ITS ---
STUDY: MRI LEFT SHOULDER REASON FOR EXAM: Female, 54 years old. IMPINGEMENT, ROTATOR CUFF DISORDER, SLAP TEAR/BICEPS TENOSYNOVITIS TECHNIQUE: Standardized fat and water weighted pulse sequences were obtained in all 3 orthogonal planes. COMPARISON: None. FINDINGS: There is a full-thickness tear of the anterior distal supraspinatus tendon insertion, overall measuring 6 mm in length (coronal T2 series 5 image 8) and 5 mm in width (sagittal T2 series 6 images 17-18). There is infraspinatus tendinosis with a linear interstitial/delaminating tear at the infraspinatus myotendinous junction (coronal T2 series 5 images 12-15). There is subscapularis tendinosis. Normal teres minor tendon. Normal supraspinatus muscle. Normal infraspinatus muscle. Normal subscapularis muscle. Normal teres minor muscle. Normal glenohumeral articulation. Normal humeral head and visualized proximal humerus. Normal biceps labral complex. Normal intracapsular long biceps tendon. Normal labrum. Normal capsulo-ligamentous complex. Normal rotator interval. There is mild hypertrophic acromioclavicular arthrosis. There is a Type II morphology (curved), with a neutral orientation. There is trace subacromial-subdeltoid bursal fluid. Normal visualized coracohumeral and coracoacromial ligaments. Normal quadrilateral space. Normal axillary space. Normal deltoid muscle. Normal trapezius muscle. MRI/Upper Ext Joint Only(Routine) IMPRESSION: 6 x 5 mm full-thickness tear of the anterior distal supraspinatus tendon insertion. Infraspinatus tendinosis with a linear interstitial/delaminating tear at the infraspinatus myotendinous junction. Subscapularis tendinosis. Mild hypertrophic acromioclavicular arthrosis. Trace subacromial-subdeltoid bursal fluid. Electronically Signed: Nicolás Romero MD at 13:17 EDT Reading Location ID and State: [facility] / [place] , Service support ,
== END | disposition home or self-care (01) ==
LOC: MRI 07:17
PROVIDERS: PCP Family Medicine; Referring Provider Orthopaedic Surgery; Visit Provider Orthopaedic Surgery
DX: S43.432A Superior glenoid labrum lesion of left shoulder, initial encounter (principal); M25.512 Pain in left shoulder; G89.29 Other chronic pain; M25.819 Other specified joint disorders, unspecified shoulder; X58.XXXA Exposure to other specified factors, initial encounter
CPT/HCPCS: 73221

== ENCOUNTER → 2024-11-13 | Outpatient (CLI) | payer OTHER, SELFPAY ==
--- NOTE | 2024-11-13 07:45 | RAD_ITS ---
PROCEDURE: KNEE 1 OR 2 VIEWS; KNEES STANDING AP BILATERAL REASON FOR EXAM: Left knee pain. TECHNIQUE: AP and PA views of both knees as well as lateral and sunrise views of the left knee were obtained. COMPARISON: None. FINDINGS: Fracture/dislocation: None evidence of the absence of an AP view. Joint space(s): Mild loss of left patellofemoral and bilateral medial compartment joint space. Suspect subchondral cystic changes in the bilateral medial femoral condyles, [id number]. Soft tissues: Unremarkable. Foreign bodies: None visible. Bone mineralization: Grossly unremarkable. RAD/Knees Standing AP Bilateral IMPRESSION: 1. No visible acute displaced fracture. 2. 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 3. Additional description as above. Reading Location: [id number]
--- NOTE | 2024-11-13 09:01 | RAD_ITS ---
PROCEDURE: KNEE 1 OR 2 VIEWS; KNEES STANDING AP BILATERAL REASON FOR EXAM: Left knee pain. TECHNIQUE: AP and PA views of both knees as well as lateral and sunrise views of the left knee were obtained. COMPARISON: None. FINDINGS: Fracture/dislocation: None evidence of the absence of an AP view. Joint space(s): Mild loss of left patellofemoral and bilateral medial compartment joint space. Suspect subchondral cystic changes in the bilateral medial femoral condyles, [id number]. Soft tissues: Unremarkable. Foreign bodies: None visible. Bone mineralization: Grossly unremarkable. RAD/Knee 1 or 2 Views IMPRESSION: 1. No visible acute displaced fracture. 2. 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 3. Additional description as above. Reading Location: [id number]
[2024-11-13 10:06] LABS: Absolute Lymphocyte Count 2.01 X10^3/uL (0.83-4.51); Absolute Neutrophil Count 4.1 X10^3/uL (2.0-7.7); Basophil# 0.02 X10^3/uL; Basophil% 0.3 % (0-1); Eosinophil# 0.13 X10^3/uL; Eosinophils% 1.9 % (0-5); Hematocrit 45.5 % (37-47); Hemoglobin 14.9 g/dL (12.0-15.0); Lymphocyte # 2.01 X10^3/ul (0.83-4.51); Lymphocyte % 29.4 % (19-41); Mean Corp Hgb Conc 32.7 g/dL (32-36); Mean Corpuscular Hgb 28.4 pg (27.0-32.0); Mean Corpuscular Volume 86.8 fL (81-99); Mean Platelet Vol. 11.7 fl (6.2-12.0); Monocyte# 0.51 X10^3/uL; Monocyte% 7.5 % (0-10); NRBC Flagged by Analyzer 0 % (0-5); Neutrophil # 4.14 X10^3/uL (2.7-7.7); Neutrophil % 60.5 % (47-70); Platelet Count 254 K/mm3 (150-450); RBC Distribution Width CV 13.2 % (11.6-14.6); RBC Distribution Width SD 41.2 fl (35.1-43.9); Red Blood Count 5.24 M/mm3 (4.2-5.4); White Blood Count 6.8 K/mm3 (4.4-11.0)
[2024-11-13 10:56] LABS: ALB/GLOB Ratio 1.4 RATIO (0.9-2.4); AST(SGOT) 21 U/L (<=31); Alanine Aminotransfer ALT/SGPT 45 U/L (<=34); Albumin, Serum 4.1 g/dL (3.5-5.0); Alkaline Phosphatase 71 U/L (35-104); Anion Gap 11 (5-15); BUN 22 mg/dL (4-19); BUN/Creat Ratio 27.6 RATIO (10-20); Calcium,Total 9.5 mg/dL (7.6-11.0); Carbon Dioxide 20.8 mmol/L (21.0-32.0); Chloride 106 mmol/L (98-108); Cholesterol 164 mg/dL (<=200); EST Glomerular Filtration Rate 87 (>60); Glucose 171 mg/dL (70-99); High Density Lipoprotein 49 mg/dL; Low Density Lipoprotein Calc. 93 mg/dL; Potassium 4.3 mmol/L (3.3-5.1); Protein, Total 7.1 g/dL (5.9-8.4); Sodium Level 138 mmol/L (133-145); Total Bilirubin 0.17 mg/dL (0.00-1.30); Triglycerides 110 mg/dL; Very Low Density Lipoprotein 22 mg/dL (5-40); cholesterol:hdl ratio screen 3.33
[2024-11-13 11:49] LABS: Microalbumin,Random Urine 27.3 mg/L (NO RANGE EST.); Microalbumin:Creatinine Ratio 243.8 mg/g CRE
== END | disposition home or self-care (01) ==
PROVIDERS: PCP Family Medicine; Referring Provider Family Medicine; Visit Provider Family Medicine
DX: E11.9 Type 2 diabetes mellitus without complications (principal); I10 Essential (primary) hypertension; K76.0 Fatty (change of) liver, not elsewhere classified; M25.562 Pain in left knee; G89.29 Other chronic pain
CPT/HCPCS: 36415; 73560; 73565; 80053; 80061; 82043; 82570; 85025

== ENCOUNTER 2024-11-27 15:00 | Outpatient (RCR) | payer OTHER, SELFPAY ==
--- NOTE | 2024-10-07 09:47 | HP.PTEVAL ---
Patient's Visit Information Visit Information Visit Information: GABRIEL WADE is a 54 year old F referred to Physical Therapy by [facility] with a diagnosis of L SAD, biceps tenotomy DOS: 09/17/24. Date of Evaluation: 09/30/24 Physical Therapist: Jay Banuelos DPT Visit Plan Frequency: 2x /Week Duration: 6 Weeks Plan: 1) PROM and progressing AAROM. Progressing to full. 2) RTC and deltoid isometrics progressing to functional strengthening. 3) pain control. Subjective Subjective: Pt. is here today for her initial evaluation with diagnosis of L SAD, biceps tenotomy, cuff debridement. DOS: 09/17/24. Pt reports overall doing well. No N/T noted. Pt. is out of sling now. Pt. denies N/T in either UE. Pt. reports being compliant with her HEP without issues. Pt. is having some difficulty with sleeping, especially on her L side. Pt. is hopeful to get back to all recreational and household activities without limitations. Pt. to go back an see physician in 4 weeks. 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 Pt. has not lifted at all, but does not have any restrictions. I did talk to her about easing back into activities, rather than going 100%, Pt. to reports understanding. Pain L shoulder: Pain Intensity (Out of 10): 5 Pain Intensity Range: 3 and 7 Objective Objective: POSTURE: Pt. has fairly normal posture in stance. L arm in slight guraded positioning. PALPATION: Pt. has normal healing incisions, no signs of infection. pt. does have soreness at anterior shoulder, no scapular symptoms noted. NEURO: Pt. has normal sensation in BUEs. Pt. has normal DTR bilaterally. ROM: PROM: L shoulder: flexion 150deg, abd 130deg, ER at side 40deg. AAROM: flexion 110deg, abd 90deg, MMT: 3+/5 throughout. Balance/Special Test Scores Quick DASH Score: 50.0000 Goals Goal 1:: LTG: P. to have increased PROM to full without increase in L shoulder pain. Goal Time Frame: 2 Weeks Goal 2:: LTG: Pt. to have full AROM of L shoulder without increase in symptoms. Goal Time Frame: 2-4 Weeks Goal 3:: STG: Pt. to sleep throughout the night without increase in L shoulder pain;. Goal Time Frame: 2 Weeks Goal 4:: LTG: Pt. to have symmetrical strength between BUEs allowing for increased ability to complete all ADLs. Goal Time Frame: 4-6 Weeks Goal 5:: LTG: Pt. to resume all work activities without increase in L shoulder pain. Goal Time Frame: 6-8 Weeks Rehabilitation Potential Physical Therapy Diagnosis: Pt. has signs and symptoms consistent with L SAD, biceps tenotomy. Pt. has marked hypomobility, weakness, increased pain and difficulty with ADLs. Pt. would benefit from PT to address the above limitations. Rehabilitation Potential: Excellent Anticipated Interventions Patient/Client Instruction: Educate patient on: Condition, Plan of Care, Risk Factors and Benefits of Fitness Program For the Purpose of:: To improve decision making, To facilitate caregiver knowledge, To improve self management, To prevent re-injury and To improve ability to perform tasks related to life management Therapeutic Exercise to Include: Strength training, Power training, Flexibilty training, Passive ROM, Active ROM and Scapular Strength/Stabilization For the Purpose of:: To decrease pain, To increase ROM, To improve nutrient delivery to tissue, To increase oxygenation perfusion, To improve muscle performance and motor function, To improve ability to perform ADL's, To improve health of tissue, To decrease soft tissue restriction, To increase flexibility/ROM and To improve endurance Manual Therapy Techniques to Include: Mobilization and Soft tissue mobilization For the Purpose of:: To decrease pain, To increase ROM, To improve nutrient delivery to tissue, To increase oxygenation perfusion and To improve muscle performance and motor function IF ES: Yes Cryotherapy (ice pack, ice massage): Yes For the Purpose of:: To decrease pain, To decrease swelling/inflammation and To increase ROM Text: Thank you for the opportunity to evaluate your patient. For Medicare and Medicare HMO plans, please review the plan of care and approve it. It will need to be FAXED BACK to us at [phone] for Medicare purposes. For Medicare only, by signing this I certify the plan of care. Please let me know if there are questions or concerns regarding this plan of care. Physician Signature: Date:
== END 2024-11-27 19:00 | disposition home or self-care (01) ==
LOC: PT 15:00
PROVIDERS: PCP Family Medicine
DX: Z98.890 Other specified postprocedural states (principal)
CPT/HCPCS: 97110; 97161

== ENCOUNTER → 2024-12-25 | Outpatient (CLI) | payer OTHER, SELFPAY ==
--- NOTE | 2024-12-25 08:00 | US_ITS ---
PROCEDURE: ABD LIMITED W/ ELASTOGRAPHY (USABDLELPARO), 12/25/2024 REASON FOR EXAM: NAFLD COMPARISON: None TECHNIQUE: Grayscale and color Doppler imaging of the right upper quadrant was performed. [employer] computer S-shear wave elastography was performed for non-invasive assessment of liver tissue stiffness. FINDINGS: Liver: Markedly echogenic. 19.7 cm in length. Gallbladder: Surgically absent. Biliary tree: Unremarkable. CBD measures 6 mm. Pancreas: Partially obscured by shadowing bowel gas, grossly unremarkable as visualized. Right kidney: Unremarkable. 11.0 cm in length. Other: No visualized free fluid. Spleen measures 11.1 x 5.1 x 4.5 cm, within normal limits. Hepatic elastography: Number of measurements: 15 measurements across 3 regions, 5 measurements per region. US probe: CA1-7A. EQI median: 9.13 kPa EQI median velocity: 1.73 m/s IQR/Med: 20.4-27.1% (kPa) and 9.8-13.8% (m/s). If the IQR/Med is IQR/median >30% (for kPa) or >15% in m/s, the variance in the measurements is a large and the accuracy of the measurement may be in question. US/ABD Limited w/ Elastography IMPRESSION: 1. Borderline hepatomegaly and markedly echogenic appearance of the liver which is typically associated with hepatic steatosis although fibrosis/early cirrhosis could appear similarly. 2. Liver stiffness is 9.13 kPa. Per the below 2020 SRU criteria, this is sugges tive of compensated advanced chronic liver disease but require further testing for confirmation. 3. Cholecystectomy without significant biliary dilatation. 4. Additional description as above. Assessment is per the Update to the SRU Liver Elastography Consensus Statement (2020) Note that the above assessment of liver fibrosis is vendor-neutral and intended for use in fibrosis related to viral etiologies and non-alcoholic fatty-liver disease (NAFLD); in causes other than viral hepat itis and NAFLD, the cutoff values are currently not well established. In some patients with NAFLD, the cutoff values for cACLD may be lower (7-9 kPa). Note also that in the setting of elevated LFTs, nonfasting or vascular congestion, the stage of lifer fibrosis may be overestimated. Previous SRU reference values: <1.37 m/s (5.7kPa): No to mild fibrosis 1.37 m/s - 2.2 m/s: Moderate to severe fibrosis >2.2 m/s (15kPa): Significant fibrosis / cirrhosis Reading Location: [id number]
[2024-12-25 10:18] LABS: International Normalized Ratio 0.9; Prothrombin Time (Protime)PT. 12.4 SECONDS (11.7-14.9)
[2024-12-25 10:32] LABS: CRP 6.49 mg/L (0.0-3.0); Rheumatoid Factor < 10.0 IU/mL (<15)
[2024-12-25 10:33] LABS: Erythrocyte Sedimentation Rate 10 mm/hr (0-30)
[2024-12-26 14:08] LABS: CCP IgG Antibodies 8 units (0-19)
== END | disposition home or self-care (01) ==
PROVIDERS: PCP Family Medicine; Referring Provider Internal Medicine; Visit Provider Internal Medicine
DX: M25.50 Pain in unspecified joint (principal); E66.01 Morbid (severe) obesity due to excess calories; Z68.41 Body mass index [BMI] 40.0-44.9, adult; K76.0 Fatty (change of) liver, not elsewhere classified; K21.9 Gastro-esophageal reflux disease without esophagitis; R19.7 Diarrhea, unspecified
CPT/HCPCS: 36415; 76705; 76981; 82306; 82784; 84165; 84550; 85610; 85652; 86038; 86140; 86200; 86334; 86431

== ENCOUNTER 2025-02-05 12:40 | Outpatient (RCR) | payer OTHER, SELFPAY | END 2025-02-08 23:59 | LOC: NS 12:40 | PROVIDERS: PCP Family Medicine; Referring Provider Internal Medicine; Visit Provider Internal Medicine | DX: Z71.3 Dietary counseling and surveillance (principal); E11.9 Type 2 diabetes mellitus without complications | CPT/HCPCS: 97802 ==

== ENCOUNTER 2025-03-05 09:05 | Outpatient (RCR) | payer OTHER, SELFPAY | END 2025-03-10 23:59 | LOC: NS 09:05 | PROVIDERS: PCP Family Medicine; Referring Provider Internal Medicine; Visit Provider Internal Medicine | DX: Z71.3 Dietary counseling and surveillance (principal); E11.9 Type 2 diabetes mellitus without complications | CPT/HCPCS: 97803 ==

== ENCOUNTER 2025-03-23 21:26 | Emergency (ER) | payer OTHER, SELFPAY ==
[2025-03-23 21:26] VITALS: BP 157/102; PULSE 90; RESP 19; TEMP 36.6; O2SAT 97; BMI 41.3
--- NOTE | 2025-03-23 22:16 | CT_ITS ---
PROCEDURE: SPINE CERVICAL WITHOUT CONTRAS 03/23/2025 REASON FOR EXAM: INJURY TECHNIQUE: SPINE CERVICAL WITHOUT CONTRAS Coronal and Sagittal reconstruction series were provided. One or more dose reduction techniques were used (e.g., Automated exposure control, adjustment of the mA and/or kV according to patient size, use of iterative reconstruction technique. RADIATION DOSE SUMMARY: CTDlvol: 30 mGy DLP: 600 mGycm COMPARISON: 08/10/2019 FINDINGS: No acute fracture or dislocation. No soft tissue injury. No apical pneumothorax. CT/Spine Cervical without Contras IMPRESSION: No acute injury Reading Location: [place] [id number]
--- NOTE | 2025-03-23 22:16 | CT_ITS ---
PROCEDURE: BRAIN/HEAD WITHOUT CONTRAST 03/23/2025 REASON FOR EXAM: INJURY TECHNIQUE: BRAIN/HEAD WITHOUT CONTRAST Coronal and Sagittal reconstruction series were provided. One or more dose reduction techniques were used (e.g., Automated exposure control, adjustment of the mA and/or kV according to patient size, use of iterative reconstruction technique. RADIATION DOSE SUMMARY: CTDlvol: 50 mGy DLP: 816 mGycm COMPARISON: No FINDINGS: No abnormal brain densities. No intracranial hemorrhage. No hydrocephalus or midline shift. No acute scalp or skull pathology. Clear sinuses. CT/Brain/Head without Contrast IMPRESSION: No acute intracranial finding Reading Location: [place] [id number]
--- NOTE | 2025-03-23 22:16 | CT_ITS ---
PROCEDURE: SINUS/FACIAL BONE 03/23/2025 REASON FOR EXAM: INJURY TECHNIQUE: SINUS/FACIAL BONE Coronal and Sagittal reconstruction series were provided. One or more dose reduction techniques were used (e.g., Automated exposure control, adjustment of the mA and/or kV according to patient size, use of iterative reconstruction technique). RADIATION DOSE SUMMARY: CTDlvol: 30 mGy DLP: 540 mGycm COMPARISON: No FINDINGS: No fracture or dislocation. No soft tissue injury. CT/Sinus/Facial Bone IMPRESSION: No facial injury noted. Reading Location: [place] [id number]
[2025-03-23 22:26] VITALS: BP 165/99; PULSE 90; RESP 12; O2SAT 96
--- OUTSIDE RECORDS SUMMARY | 2025-03-23 22:32 | XMS RPT_ITS | CCD ---
Author Organization [facility] CliniSywi Care Team Providers Care Bridal Consultant Name Role Phone Dr. Chikis Montana Primary Care Provider [phone] Dr. Chikis Montana Referring Provider [phone] Fallon Murry Attending Provider Friend, Dr. Moran Attending Provider [phone] Unavailable Primary Care Provider Dr. Chikis Gaitan Primary Care Provider [phone] Dr. Chikis Montana Referring Provider [phone] PAMELA Santa Attending Provider Dr. Dean Diaz Attending Provider [phone] Dr. Dean Diaz Other Provider [phone] Chikis Montana Primary Care Provider [phone] Dr. Chikis Motnana Referring Provider [phone] Dean Diaz Attending Provider [phone] PAMELA Santa Attending Provider Dr. Dean Diaz Other Provider FARRUKH Gomez Attending Provider Dr. Chikis Montana Primary Care Provider [phone] Dr. Chikis Montana Referring Provider [phone] PAMELA Santa Attending Provider Unavailable Primary Care Provider Chikis Gaitan MD Primary Care Provider Chikis Montana MD Primary Care Provider PROVIDER, UNKNOWN Admitting Unavailable PROVIDER, UNKNOWN Attending Unavailable PROVIDER, UNKNOWN Admitting Unavailable PROVIDER, UNKNOWN Attending Unavailable Nan SHERWOOD, Dr. Diop Primary Care Provider Nan SHERWOOD, Dr. Diop Referring Provider [phone] Good SHERWOOD, Dr. Moreland Attending Provider Nan SHERWOOD, Dr. Diop Attending Provider [phone] Viktor WARE, Dr. Domonique Nevarez Other Provider [phone] ANTHONY STONE Attending Provider [phone] ANTHONY STONE Referring Provider [phone] YESENIA COLE Attending Unavailable MIEDEL, CHIKIS E Primary Care Unavailable DOMONIQUE HOANG Referring Unavailab le CHICORELLIDOMONIQUE Referring Unavailab le CHICORELLIDOMONIQUE Attending Unavailab le CHICORELLIDOMONIQUE Attending Unavailab le WISWELL, YURY Referring Unavailable MIEDEL, CHIKIS E Primary Care Unavailable CHICORELDOMONIQUE FINLEY Attending Unavailab le MIEDEL, CHIKIS E Primary Care Unavailable CHICORELDOMONIQUE FINLEY Attending Unavailab le MIEDEL, CHIKIS E Primary Care Unavailable CHICORELDOMONIQUE FINLEY Attending Unavailab le ALBA, MCKENZIE Attending Unavailable CHICORELDOMONIQUE FINLEY Referring Unavailab le MIEDEL, CHIKIS E Primary Care Unavailable ANTHONY STONE Attending Unavailable MIEDEL, CHIKIS E Primary Care Unavailable YURY STEEL Attending Unavailable MIEDEL, CHIKIS E Primary Care Unavailable MIEDEL, CHIKIS E Primary Care Unavailable ALBA, MCKENZIE Referring Unavailable MIEDEL, CHIKIS E Primary Care Unavailable ALBA, MCKENZIE Referring Unavailable MIEDEL, CHIKIS E Primary Care Unavailable TALHA LEA Attending Unavailable ANTHONY STONE Attending Unavailable MIEDEL, CHIKIS E Primary Care Unavailable YURY STEEL Attending Unavailable MIEDEL, CHIKIS E Primary Care Unavailable YURY STEEL Attending Unavailable MIEDEL, CHIKIS E Primary Care Unavailable DOMONIQUE HOANG Referring Unavailab le MIEDEL, CHIKIS E Primary Care Unavailable YESENIA COLE Referring Unavailable MIEDEL, CHIKIS E Primary Care Unavailable YURY STEEL Attending Unavailable MIEDEL, CHIKIS E Primary Care Unavailable CHICORELLIDOMONIQUEMARIMAR Referring Unavailab le MIEDEL, CHIKIS E Primary Care Unavailable EFRAIN HODGES Referring Unavailable MIEDEL, CHIKIS E Primary Care Unavailable Nan SHERWOOD, Dr. Diop Primary Care Provider Dr. Chikis Montana MD Referring Provider ANTHONY STONE Attending Provider ANTHONY STONE Referring Provider Good SHERWOOD, Dr. Moreland Attending Provider Dr. Aniceto Funk MD Referring Provider MCKENZIE WILLIS Other Provider Miedel, Chikis Primary Care Unavailable Good, Aniceto Attending Unavailable Miedel, Chikis Referring Unavailable Good, Aniceto Referring Unavailable Good, Aniceto Attending Unavailable Miedel, Chikis Primary Care Unavailable Miedel, Chikis Primary Care Unavailable KoochichingAlma harris Attending Unavailable [place], Alma Referring Unavailable Good, Aniceto Attending Unavailable Good, Aniceto Referring Unavailable Miedel, Chikis Primary Care Unavailable Dean Diaz Attending Unavailable Miedel, Chikis Primary Care Unavailable Domonique Hoang Attending Unavailab le RachelleorelliDomonique Referring Unavailab le Miedel, Chikis Primary Care Unavailable Miedel, Chikis Primary Care Unavailable Good, Aniceto Referring Unavailable [place], Alma Consulting Unavailable Good, Aniceto Attending Unavailable Miedel, Chikis Primary Care Unavailable RachelleorelliDomonique Consulting Unavailab le Miedel, Chikis Attending Unavailable Miedel, Chikis Referring Unavailable Good, Aniceto Attending Unavailable Good, Aniceto Referring Unavailable Miedel, Chikis Primary Care Unavailable Morena Santa Attending Unavailable Miedel, Chikis Primary Care Unavailable Miedel, Chikis Referring Unavailable Good, Aniceto Attending Unavailable Miedel, Chikis Referring Unavailable Chikis Montana Primary Care Unavailable Allergies Allergy Classification Reported Allergen(s) Allergy Type Date of Onset Reaction(s) Facility DOPamine Antagonists (1 source) Metoclopramide Drug Allergy 6 Mental Status Change [facility] (12 sources) Metoclopramide Drug Allergy 2 NIGHTMARES [facility] (20 sources) Metoclopramide; Translations: [METOCLOPRAMIDE HCL] Drug Allergy 6 Mental Status Change [facility] Work Phone: (1 source) Metoclopramide Drug Allergy 5 [facility] Repository Medications Current Medications Medication Drug Class(es) Dates Sig (Normalized) Sig (Original) acetaminophen 325 mg / HYDROcodone bitartrate 5 mg oral tablet (15 sources) Opioid Agonist Start: 09-30-2024 End: 10-07-2024 take 1 tablet by mouth every eight hours as needed for pain HYDROcodone-aceta minophen (NORCO) 5-325 mg per tablet Indications: S/P shoulder surgery Take 1 tablet by mouth every 8 hours as needed for pain for up to 7 days. 20 tablet 09/30/2024 10/07/2024 Active Start: 09-17-2024 End: 09-18-2024 1 tablet, ORAL, NEEDED, 1 dose, Starting on Mon09/17/24 at 0855, Until Mon09/18/24 at 0303, Mild Pain (1-3) - Enteral, Moderate Pain (4-6) - Enteral, Recovery or Phase I (only) Start: 03-08-2019 End: 03-13-2019 Hydrocodone-Acetaminophen 1 TABLET tablet Discontinued 1 - 2 {tbl} PO EVERY 6 HOURS NEEDED as needed for Pain 40 5 0 March 08, 2019 March 12, 2019 12:00am March 13, 2019 12:08am Postoperative pain Other acute postprocedural pain take as directed, stop all other narcotics, Start: 03-08-2019 End: 03-13-2019 take 1 tablet by mouth every six hours as needed Hydrocodone-Acetaminophen Discontinued 1 - 2 TABLET PO EVERY 6 HOURS NEEDED 40 5 March 08, 2019 March 13, 2019 12:08am take as directed, stop all other narcotics, acetaminophen 325 mg / oxyCODONE hydrochloride 5 mg oral tablet (14 sources) Opioid Agonist Start: 09-17-2024 End: 09-22-2024 take 1 tablet by mouth every six hours as needed for pain oxyCODONE-acetaminophen (PERCOCET) 5-325 mg tablet Indications: Postoperative pain Take 1 tablet by mouth every 6 hours as needed for pain for up to 5 days. 20 tablet 09/17/2024 09/22/2024 Active Start: 02-27-2019 End: 03-09-2019 take 1-2 tablets by mouth every six hours as needed for pain Oxycodone-Acetaminophen 1 TABLET tablet Discontinued 1 - 2 {tbl} PO EVERY 6 HOURS NEEDED as needed for Pain 28 5 0 February 27, 2019 March 03, 2019 12:00am March 09, 2019 12:07am Postoperative pain Other acute postprocedural pain TAKE 1-2 TABS BY MOUTH EVERY 6 HOURS NEEDED FOR PAIN, STOP ALL OTHER TYLENOL Start: 02-27-2019 End: 03-09-2019 take 1-2 tablets by mouth every six hours as needed for pain Oxycodone-Acetaminophen Discontinued 1 - 2 TABLET PO EVERY 6 HOURS NEEDED 28 5 February 27, 2019 March 09, 2019 12:07am TAKE 1-2 TABS BY MOUTH EVERY 6 HOURS NEEDED FOR PAIN, STOP ALL OTHER TYLENOL cephalexin 500 mg oral capsule (2 sources) Cephalosporin Antibacterial Start: 11-27-2024 End: 12-04-2024 take 1 capsule by mouth four times daily cephALEXin (KEFLEX) 500 mg capsule Take 1 capsule by mouth four times daily for 7 days. 28 capsule 11/27/2024 12/04/2024 Active Start: 10-03-2024 End: 10-08-2024 take 1 capsule by mouth four times daily cephALEXin (KEFLEX) 500 mg capsule Indications: Vulvar cellulitis Take 1 capsule by mouth four times daily for 5 days. 20 capsule 10/03/2024 10/08/2024 Active cholecalciferol 0.025 mg oral tablet (12 sources) Vitamin D Start: 11-18-2021 take 1 tablet by mouth once daily Cholecalciferol (Vitamin D3) (Vitamin D3) 25 mcg (1,000 unit) Tablet Active 25 ug PO DAILY November 18, 2021 1:00am On Hold: None Covid-19 Antigen Test (Advin Covid-19 Ag Home Test) kit (5 sources) Start: 12-25-2023 Covid-19 Antig en Test (Advin Covid-19 Ag Home Test) kit Active 0 .Route 1 0 December 25, 2023 12:00am As directed Start: 12-25-2023 Covid-19 Antig en Test (Advin Covid-19 Ag Home Test) kit Active 0 .Route 1 December 25, 2023 12:00am As directed 24 hr dilTIAZem hydrochloride 120 mg extended release oral capsule (20 sources) Calcium Channel [place] Start: 05-28-2021 take 1 capsule by mouth once daily Diltiazem Hcl 120 mg capsule,extended release 24hr Active 120 mg PO DAILY May 28, 2021 12:00am Comment on above: Take 1 capsule by mo ut once daily. empagliflozin 25 mg oral tablet (20 sources) Sodium-Glucose Cotransporter 2 Inhibitor Start: 07-18-2024 take 1 tablet by mouth once daily in the morning Empagliflozin (Jardiance) 25 mg tablet Active 25 mg PO EVERY MORNING July 18, 2024 1:00am Type 2 diabetes mellitus Type 2 diabetes mellitus without complications Start: 06-03-2023 End: 07-18-2024 take 1 tablet by mouth once daily Empagliflozin (Jardiance) 10 mg tablet Discontinued 25 mg PO DAILY June 26, 2023 8:17am July 18, 2024 4:03pm Start: 03-20-2023 End: 06-04-2023 take 1 tablet by mouth once daily Empagliflozin (Jardiance) 25 mg tablet Discontinued 25 mg PO DAILY June 04, 2023 4:57pm June 04, 2023 5:00pm ergocalciferol, vitamin D2, (VITAMIN D2 ORAL) (20 sources) take 1000 [IU] by mouth once daily ergocalciferol, vitamin D2, (VITAMIN D2 ORAL) Take 1,000 Units by mouth once daily. Active take 1000 [IU] by mouth once rowdy ly ergocalciferol, vitamin D2, (VITAMIN D2 ORAL) Take 1,000 Units by mouth once daily. 0 Active Comment on above: Take 1,000 Units by mouth once daily. ezetimibe 10 mg oral tablet (20 sources) Dietary Cholesterol Absorption Inhibitor Start: 2023 End: 2023 take 1 tablet by mouth once daily Ezetimibe 10 mg tablet Active 10 mg PO DAILY 90 May 03, 2024 9:17am Elevated low density lipoprotein (LDL) cholesterol level Pure hypercholesterolemia, unspecified losartan potassium 50 mg oral tablet (20 sources) Angiotensin 2 Receptor Shawanda Start: 2022 take 1 tablet by mouth once daily Losartan 50 mg tablet Active 50 mg PO DAILY June 21, 2023 12:00am Comment on above: Take 1 tablet by lori th every afternoon. methylPREDNISolone (20 sources) Corticosteroid Start: 2024 methylPREDNISolone (MEDROL, MANOJ,) 4 mg Dose-Pack As instructed per package 21 tablet 09/30/2024 Active Start: 03-28-2016 End: 06-21-2024 methylPREDNISolone (MEDROL, MANOJ,) 4 mg Dose-Pack As Instructed per package 1 Package 0 03/28/2016 06/21/2024 Discontinued Start: 03-28-2016 methylPREDNISo lone (MEDROL, MANOJ,) 4 mg Dose-Pack As Instructed per package 1 Package 0 03/28/2016 Active Comment on above: As Instructed per farrukh keyes pantoprazole 40 mg delayed release oral tablet (13 sources) Proton Pump Inhibitor Start: take 40 mg by mouth once daily Pantoprazole Active 40 MG PO DAILY December 26, 2022 12:00am Start: 11-23-2021 End: 03-22-2022 Pantoprazole (Protonix) 40 m g tablet,delayed release (DR/EC) Discontinued 40 mg PO DAILY 60 November 23, 2021 12:00am March 22, 2022 1:28pm take two times a day for eight weeks and then one time a day for eight weeks then reevaluate Semaglutide (20 sources) Start: 01-08-2025 Semaglutide (O zempic) 0.25 mg or 0.5 mg (2 mg/3 mL) pen injector Active 0.25 mg SC EVERY WEEK January 08, 2025 12:00am for 4 weeks Start: 11-27-2023 End: 07-18-2024 Semaglutide (Ozempic) 0.25 m g or 0.5 mg (2 mg/3 mL) pen injector Discontinued 0.5 mg SC EVERY WEEK 9 0 March 18th, 2024 1:24pm July 18, 2024 3:25pm Type 2 diabetes mellitus Type 2 diabetes mellitus without complications Start: 11-27-2023 End: 07-18-2024 Semaglutide (Ozempic) 0.25 m g or 0.5 mg (2 mg/3 mL) pen injector Discontinued 0.5 mg SC EVERY WEEK November 27, 2023 1:24pm July 18, 2024 3:25pm Start: 11-27-2023 Semaglutide (O zempic) 0.25 mg or 0.5 mg (2 mg/3 mL) pen injector Active 0.5 MG SC EVERY WEEK November 27, 2023 1:24pm Start: 06-04-2023 End: 11-27-2023 Semaglutide (Ozempic) 0.25 m g or 0.5 mg (2 mg/3 mL) pen injector Discontinued 0.5 mg SC EVERY WEEK 9 June 04, 2023 4:59pm November 27, 2023 1:24pm Type 2 diabetes mellitus Type 2 diabetes mellitus without complications Start: 06-04-2023 End: 11-27-2023 Semaglutide (Ozempic) 0.25 m g or 0.5 mg (2 mg/3 mL) pen injector Discontinued 0.5 mg SC EVERY WEEK June 04, 2023 4:59pm November 27, 2023 1:24pm Start: 06-04-2023 End: 11-27-2023 Semaglutide (Ozempic) 0.25 m g or 0.5 mg (2 mg/3 mL) pen injector Discontinued 0.5 MG SC EVERY WEEK June 04, 2023 4:59pm November 27, 2023 1:24pm Start: 06-04-2023 Semaglutide (O zempic) 0.25 mg or 0.5 mg (2 mg/3 mL) pen injector Active 0.5 MG SC EVERY WEEK June 04, 2023 3:59pm Start: 06-04-2023 Semaglutide (O zempic) 0.25 mg or 0.5 mg (2 mg/3 mL) pen injector Active 0.5 MG SC EVERY WEEK June 04, 2023 4:59pm Start: 03-20-2023 End: 06-04-2023 Semaglutide (Ozempic) 0.25 m g or 0.5 mg (2 mg/3 mL) pen injector Discontinued 0.5 mg SC EVERY WEEK 3 March 20, 2023 12:00am June 04, 2023 5:00pm Type 2 diabetes mellitus Type 2 diabetes mellitus without complications Start: 03-20-2023 End: 06-04-2023 Semaglutide (Ozempic) 0.25 m g or 0.5 mg (2 mg/3 mL) pen injector Discontinued 0.5 mg SC EVERY WEEK 3 March 20, 2023 12:00am June 04, 2023 5:00pm Start: 03-20-2023 End: 06-04-2023 Semaglutide (Ozempic) 0.25 m g or 0.5 mg (2 mg/3 mL) pen injector Discontinued 0.5 MG SC EVERY WEEK March 19, 2023 11:00pm June 04, 2023 4:00pm Start: 03-20-2023 End: 06-04-2023 Semaglutide (Ozempic) 0.25 m g or 0.5 mg (2 mg/3 mL) pen injector Discontinued 0.5 MG SC EVERY WEEK March 20, 2023 12:00am June 04, 2023 5:00pm semaglutide (OZEMPIC) 0.25 mg or 0.5 mg (2 mg/3 mL) pen (3 sources) semaglutide (OZE MPIC) 0.25 mg or 0.5 mg (2 mg/3 mL) pen Inject 0.25 mg subcutaneously one time a week. Mondays Active vitamin e 100 unt oral tablet (12 sources) Start: 11-18-2021 take 100 [IU] by mouth once daily Vitamin E Active 100 UNIT PO DAILY November 18, 2021 1:00am Start: 11-18-2021 End: 03-20-2023 take 1 capsule by mouth once daily Vitamin E 100 unit Capsule Discontinued 100 U PO DAILY November 18, 2021 1:00am March 20, 2023 10:29am Completed/Discontinued Medications Medication Drug Class(es) Dates Sig (Normalized) Sig (Original) acetaminophen 500 mg oral tablet (1 source) Start: 09-17-2024 End: 09-17-2024 take 1 dose by mouth once 1,000 mg, ORAL, PRE-OP ONCE, 1 dose, On Mon09/17/24 at 0700, Preprocedure [id number] 200 actuat albuterol 0.09 mg/actuat metered dose inhaler (12 sources) beta2-Adrenergic Agonist Start: 03-28-2016 End: 06-21-2024 take 2 puff(s) by inhalation every four hours as needed for wheezing albuterol HFA (PROAIR HFA) 90 mcg/actuation inhaler Inhale 2 Puffs as instructed every 4 hours as needed for Wheezing/Shortness of Breath. 1 Inhaler 0 03/28/2016 06/21/2024 Discontinued Comment on above: Inhale 2 Puffs as in structed every 4 hours as needed for Wheezing/Shortness of Breath. Tuc-Mzdu-Ufxsa-Malt- Prt-Lac-In (Digestive Enzymes(Mal,Lac,Inv) ) 220 mg capsule (4 sources) Start: 05-21-2020 End: 05-28-2021 take 1 capsule by mouth once daily Sld-Lnsp-Wtnct-Mal h-Wec-Fdj-In (Digestive Enzymes(Mal,Lac,In v)) 220 mg capsule Discontinued 1 NMA PO DAILY May 21, 2020 12:00am May 28, 2021 2:15pm administer with a meal Start: 05-21-2020 End: 05-28-2021 take 1 capsule by mouth once daily Qne-Uyyh-Jgkkc-Xcfj-Iib-Mxi-In (Digestiv e Enzymes(Mal,Lac,Inv)) 220 mg capsule Discontinued 1 NMA PO DAILY May 21, 2020 12:00am May 28, 2021 2:15pm administer with a meal spz-zfge-nevyk-iboj-xzs-cco- in 220 mg capsule (8 sources) Start: 05-21-2020 End: 05-28-2021 take 1 capsule by mouth once daily tmn-kuyv-rezjh-thzj-oya-zem-in 220 mg capsule Discontinued 1 CAP PO DAILY May 20, 2020 11:00pm May 28, 2021 1:15pm administer with a meal Start: 05-21-2020 End: 05-28-2021 take 1 capsule by mouth once daily rnk-aiyx-cypmu-dzgw-tun-rnl-in 220 mg ca psule Discontinued 1 CAP PO DAILY May 21, 2020 12:00am May 28, 2021 2:15pm administer with a meal calcium chloride 0.0014 meq/ml / potassium chloride 0.004 meq/ml / sodium chloride 0.103 meq/ml / sodium lactate 0.028 meq/ml injectable solution (1 source) Start: 09-17-2024 End: 09-18-2024 take 5-30 mL intravenously every hour 5-30 mL/hr, INTRAVENOUS, CONTINUOUS, Starting on Mon09/17/24 at 0900, Until Mon09/18/24 at 0303, Recovery or Phase I (only) colestipol hydrochloride 1000 mg oral tablet (14 sources) Bile Acid Sequestrant Start: 08-20-2024 End: 01-08-2025 Colestipol (Colestid) 1 gram tablet Discontinued 1 g PO TWICE A DAY 60 30 4 August 20, 2024 1:00am January 08, 2025 9:48am Advised to take 2 hours prior or after other medications as advised with other medications. diphenhydrAMINE (1 source) Histamine-1 Receptor Antagonist Start: 09-17-2024 End: 09-18-2024 take 25 mg intravenously every four hours as needed 25 mg, INTRAVENOUS, EVERY 4 HOURS NEEDED, 2 doses, Starting on Mon09/17/24 at 0855, Until Mon09/18/24 at 0303, itching/rash, May repeat 25 mg IV X1 AFTER 4 HOURS for continued puritis, Recovery or Phase I (only) docusate sodium 100 mg oral capsule (12 sources) Start: 03-06-2017 End: 02-09-2018 take 1 capsule by mouth twice daily as needed for constipation Docusate Sodium 100 MG capsule Discontinued 100 mg PO TWICE DAILY NEEDED as needed for Constipation 60 1 March 06, 2017 12:00am February 09, 2018 4:10pm 0.5 ml dulaglutide 3 mg/ml auto-injector (20 sources) GLP-1 Receptor Agonist Start: 06-19-2018 End: 05-28-2021 Dulaglutide (Trulicity) 1.5 mg/0.5 mL pen injector Discontinued 1.5 mg SC EVERY WEEK 2 5 June 05, 2020 8:21am May 28, 2021 2:15pm 1 ml fentaNYL 0.05 mg/ml injection (1 source) Opioid Agonist Start: 09-17-2024 End: 09-18-2024 50 mcg, INTRAVENOUS, EVERY 10 MINUTES NEEDED, 4 doses, Starting on Mon09/17/24 at 0855, Until Mon09/18/24 at 0303, Moderate Pain (4-6) - Parenteral, Severe Pain (>/=7) - Parenteral, FIRST LINE THERAPY, Every 10 minutes., Recovery or Phase I (only) ferrous sulfate 325 mg oral tablet (12 sources) Start: 02-27-2017 End: 02-09-2018 Ferrous Sulfate 325 MG tablet Discontinued 325 mg PO NEEDED as needed for ANEMIA February 27, 2017 12:00am February 09, 2018 4:10pm hydroCHLOROthiazide 25 mg oral tablet (20 sources) Thiazide Diuretic Start: 02-27-2017 End: 05-28-2021 take 1 tablet by mouth once daily Hydrochlorothiazide 25 mg tablet Discontinued 25 mg PO DAILY 30 0 January 04, 2021 10:24am May 28, 2021 2:15pm Start: 12-15-2015 End: 06-21-2024 take 1 capsule by mouth once daily Hydrochlorothiazide 12.5 mg capsule Take 1 capsule by mouth once daily. 12/15/2015 06/21/2024 Discontinued Comment on above: Take 1 capsule by [facility] once daily. 1 ml HYDROmorphone hydrochloride 1 mg/ml cartridge (1 source) Opioid Agonist Start: 2024 End: 2024 1 mg, INTRAVENOUS, DIRECTED NEEDED, 4 doses, Starting on Mon09/17/24 at 0855, Until Mon09/18/24 at 0303, Mild Pain (1-3) - Parenteral, breakthrough pain, SECOND LINE THERAPY, Every 5-15 mins prn USE FOR MILD PAIN ONLY IF PATIENT IS UNABLE TO TOLERATE ORAL THERAPY Caution: IV hydromorphone is approximately 8 times MORE POTENT than IV morphine. For example, hydromorphone 1mg IV = morphine 8mg IV, Recovery or Phase I (only) LORazepam 0.5 mg oral tablet (20 sources) Benzodiazepine Start: 2018 End: 2019 Lorazepam (Ativan) 0.5 mg tablet Discontinued 0.5 mg PO 2 to 3 times per day as needed for flight anxiety 7 0 July 26, 2019 4:33pm April 13, 2020 11:03am meloxicam 7.5 mg oral tablet (12 sources) Nonsteroidal Anti-inflammatory Drug Start: 2019 End: 2019 take 1 tablet by mouth once daily Meloxicam (Mobic) 7.5 mg tablet Discontinued 7.5 mg PO DAILY 30 October 10, 2019 1:00am April 13, 2020 11:03am stop all other nsaids, Meperidine (1 source) Opioid Agonist Start: 2024 End: 2024 12.5 mg, INTRAVENOUS, NEEDED, Starting on Mon09/17/24 at 0855, Until Mon09/18/24 at 0303, for shivering, May Repeat 12.5 mg in 10 minutes X1 for Continued Shivering, Recovery or Phase I (only) osmotic 24 hr metFORMIN hydrochloride 500 mg extended release oral tablet (12 sources) Biguanide Start: 2017 End: 2017 take 1 tablet by mouth twice daily Metformin 500 mg tablet extended release 24hr Discontinued 500 mg PO TWICE A DAY February 09, 2018 12:00am March 20, 2018 9:58am 5 ml midazolam 1 mg/ml injection (1 source) Benzodiazepine Start: 2024 End: 2024 2 mg, INTRAVENOUS, ONCE, 1 dose, On Mon09/17/24 at 0700, For peripheral nerve block, start with 2mg IV and repeat 2mg in 5 minutes x1 PRN, Preprocedure nitrofurantoin, macrocrystals 25 mg / nitrofurantoin, monohydrate 75 mg oral capsule (12 sources) Nitrofuran Antibacterial Start: 2018 End: 2018 take 1 capsule by mouth twice daily at mealtime Nitrofurantoin Monohyd/M-Cryst (Macrobid) 100 mg capsule Discontinued 100 mg PO TWICE A DAY 10 April 19, 2019 12:00am June 12, 2019 4:00pm must administer with a meal/food omeprazole 20 mg delayed release oral tablet (12 sources) Proton Pump Inhibitor Start: 2019 End: 2019 take 1 tablet by mouth once daily Omeprazole 20 MG tablet,delayed release (DR/EC) Discontinued 20 mg PO DAILY 60 60 0 July 03, 2020 12:00am August 31, 2020 1:00am September 01, 2020 1:02am oxyCODONE hydrochloride 5 mg oral tablet (12 sources) Opioid Agonist Start: 2016 End: 2017 take 5-10 mg by mouth every six hours as needed for pain Oxycodone 5 MG tablet Discontinued 5 - 10 mg PO EVERY 6 HOURS NEEDED as needed for Mod-Severe Pain () 20 0 March 06, 2017 12:00am February 09, 2018 4:10pm OZEMPIC 0.25 mg or 0.5 mg (2 mg/3 mL) pen (17 sources) Start: 2022 End: 2023 inject 0.5 mg by subcutaneous injection every week OZEMPIC 0.25 mg or 0.5 mg (2 mg/3 mL) pen 0.5 MG (0.8 ML) SUBCUTANEOUSLY EVERY WEEK 05/21/2023 08/28/2024 Discontinued Start: 05-21-2023 inject 0.5 mg by sub cutaneous injection every week OZEMPIC 0.25 mg or 0.5 mg (2 mg/3 mL) pen 0.5 MG (0.8 ML) SUBCUTANEOUSLY EVERY WEEK 05/21/2023 Active Start: 05-21-2023 inject 0.5 mg by sub cutaneous injection every week OZEMPIC 0.25 mg or 0.5 mg (2 mg/3 mL) pen 0.5 MG (0.8 ML) SUBCUTANEOUSLY EVERY WEEK 0 05/21/2023 Active Comment on above: 0.5 MG (0.8 ML) SUBC UTANEOUSLY EVERY WEEK pioglitazone 15 mg oral tablet (20 sources) Peroxisome Proliferator Receptor alpha Agonist, Peroxisome Proliferator Receptor gamma Agonist, Thiazolidinedione Start : 08-13 End: 07-13 take 1 tablet by mouth once daily Pioglitazone 15 mg tablet Discontinued 0 .ROUTE .COMPLEX 30 6 December 22, 2021 5:49pm July 13, 2022 10:57am take 1 tablet by mouth once daily predniSONE 20 mg oral tablet (12 sources) Start : 01-29 End: 05-28 take 1 tablet by mouth once daily Prednisone 20 MG tablet Discontinued 20 mg PO DAILY 3 0 January 29, 2021 12:00am May 28, 2021 2:15pm prochlorperazine 5 mg/ml injectable solution (1 source) Phenothiazine Start : 09-17 End: 09-18 take 10 mg intravenously every six hours as needed 10 mg, INTRAVENOUS, EVERY 6 HOURS NEEDED, Starting on Mon09/17/24 at 0855, Until Mon09/18/24 at 0303, Nausea/Vomiting - First Line - Parenteral, EVERY 6 HOURS NEEDED Protect From Light, Recovery or Phase I (only) promethazine hydrochloride 12.5 mg oral tablet (1 source) Phenothiazine Start : 09-17 End: 09-17 take 1 dose by mouth once 12.5 mg, ORAL, PRE-OP ONCE, 1 dose, On Mon09/17/24 at 0700, Preprocedure 72 hr scopolamine 0.0139 mg/hr transdermal system (13 sources) Anticholinergic Start : 09-17 End: 09-18 1 Patch, TRANSDERMAL, Administer over 24 Hours, ONCE, 1 dose, On Mon09/17/24 at 0700, Apply patch behind ear. Each time a new patch is needed it should be placed behind the alternate ear from the previous patch. Remove old patch. Each transdermal system contains 1.5 mg scopolamine base and delivers 1 mg over 3 days., Preprocedure Start: 07-26-2019 End: 08-21-2019 Scopolamine Base 1 mg over 3 days patch 3 day Discontinued 1 NMA TD Q72H as needed for motion sickness 4 0 July 26, 2019 1:00am August 21, 2019 5:33pm Start: 07-26-2019 End: 08-21-2019 Scopolamine Base Discontinue d 1 PATCH TD Q72H 4 July 26, 2019 1:00am August 21, 2019 5:33pm sucralfate 100 mg/ml oral suspension (12 sources) Aluminum Complex Start: 11-23-2021 End: 03-22-2022 take 1 mL by mouth three times daily 1 hour(s) before mealtime Sucralfate (Carafate) 100 mg/mL suspension Discontinued 10 mL PO before meals 1000 0 November 23, 2021 12:00am March 22, 2022 1:28pm take three times a day one hour before meals and two hours away from other medications. triamcinolone acetonide 1 mg/ml topical cream (6 sources) Corticosteroid Start: 07-01-2023 End: 12-25-2023 Triamcinolone Acetonide 0.1 % cream Discontinued 1 NMA TOPICAL TWICE A DAY 80 0 July 01, 2023 12:00am December 25, 2023 8:16am Contact dermatitis Unspecified contact dermatitis, unspecified cause Do not use for greater than 2 weeks consistently ursodiol 300 mg oral capsule (20 sources) Bile Acid Start: 08-25-2023 End: 01-08-2025 take 1 capsule by mouth once daily Ursodiol 300 mg capsule Discontinued 300 mg PO DAILY 90 1 November 25, 2024 4:58pm January 08, 2025 9:50am Start: 08-13-2021 End: 08-25-2023 take 1 capsule by mouth twice daily Ursodiol 300 mg capsule Discontinued 0 .ROUTE .COMPLEX 60 5 October 20, 2022 12:52pm June 21, 2023 2:30pm TAKE 1 CAPSULE BY MOUTH TWICE A DAY take 300 mg by mouth once daily URSODIOL ORAL Taking 300 mg daily Active URSODIOL ORAL zolpidem tartrate 5 mg oral tablet (18 sources) gamma-Aminobutyric Acid-ergic Agonist Start: 09-17-2024 End: 10-17-2024 take 1 tablet by mouth at bedtime as needed zolpidem (AMBIEN) 5 mg tablet Indications: Other insomnia Take 1 tablet by mouth at bedtime as needed for up to 7 days. 7 tablet 09/17/2024 10/17/2024 Discontinued (Other) Start: 02-27-2019 End: 04-19-2019 take 1 tablet by mouth at bedtime as needed Zolpidem 5 MG tablet Discontinued 5 mg PO AT BEDTIME NEEDED as needed for Insomnia 14 0 February 27, 2019 12:00am April 19, 2019 10:16am Problems Active Problems Problem Classification Problem Date Documented Da te Episodic/Chronic Abdominal pain (2 sources) Pain in female pelvis; Translations: [Pelvic and perineal pain] 06-08-2023 Episodic Allergic reactions (19 sources) Allergic reaction; Translations: [Allergy, unspecified, initial encounter] 01-29-2021 Episodic Anxiety disorders (12 sources) Fear of flying; Translations: [Fear of flying] 02-09-2018 Chronic Chronic obstructive pulmonary disease and bronchiectasis (12 sources) Bronchitis; Translations: [Bronchitis, not specified as acute or chronic] 02-09-2018 Episodic Conditions associated with dizziness or vertigo (20 sources) Dizziness; Translations: [Dizziness and giddiness] 02-09-2018 Episodic Diabetes mellitus without complication (17 sources) Type 2 diabetes mellitus; Translations: [Type 2 diabetes mellitus without complications] Onset: 12-12-2024 08-29-2018 Chronic Disorders of lipid metabolism (20 sources) Raised low density lipoprotein cholesterol; Translations: [Pure hypercholesterolemia, unspecified] Onset: 06-25-2024 03-20-2023 Chronic Esophageal disorders (14 sources) Gastric reflux; Translations: [Gastro-esophageal reflux disease without esophagitis] 12-26-2022 Chronic Essential hypertension (20 sources) Hypertensive disorder; Translations: [Essential (primary) hypertension] Onset: 02-16-2016 08-29-2018 Chronic Genitourinary symptoms and ill-defined conditions (12 sources) Polyuria; Translations: [Polyuria] 02-09-2018 Episodic Immunizations and screening for infectious disease (20 sources) Contact with or exposure to other viral diseases; Translations: [Lab test negative for COVID-19 virus] 06-02-2021 Episodic Inflammatory diseases of female pelvic organs (4 sources) Abscess of vulva; Translations: [Abscess of vulva] 10-03-2024 Episodic Malaise and fatigue (1 source) Malaise and fatigue; Translations: [Other malaise] 12-19-2024 Episodic Menopausal disorders (1 source) Menopausal symptom; Translations: [Menopausal and female climacteric states] 06-08-2023 Chronic Menstrual disorders (12 sources) Menorrhagia; Translations: [Excessive and frequent menstruation with regular cycle] 02-09-2018 Chronic Neoplasms of unspecified nature or uncertain behavior (12 sources) Neoplastic disease of uncertain behavior; Translations: [Neoplasm of uncertain behavior, unspecified] 05-28-2021 Episodic Comment on above: in gluteal fold abou t 2 cm from anus superiorly Nonmalignant breast conditions (4 sources) Lump of subareolar area of right breast; Translations: [Unspecified lump in right breast, subareolar] Onset: 11-06-2024 10-17-2024 Episodic Osteoarthritis (12 sources) Osteoarthritis of left hip joint; Translations: [Unilateral primary osteoarthritis, left hip] 12-31-2021 Chronic Other bone disease and musculoskeletal deformities (1 source) Osteoarthrosis involving multiple sites but not designated as generalized; Translations: [Other hypertrophic osteoarthropathy, multiple sites] 12-19-2024 Chronic Other connective tissue disease (12 sources) Disorder of rotator cuff; Translations: [Unspecified rotator cuff tear or rupture of right shoulder, not specified as traumatic] 01-24-2019 Episodic Other connective tissue disease (12 sources) Swelling of upper limb; Translations: [Other specified soft tissue disorders] 01-24-2019 Episodic Other connective tissue disease (3 sources) Full thickness rotator cuff tear; Translations: [Complete rotator cuff tear or rupture of left shoulder, not specified as traumatic] 05-23-2024 Episodic Other connective tissue disease (1 source) Bursitis of left shoulder; Translations: [Bursitis of left shoulder] 05-23-2024 Episodic Other connective tissue disease (2 sources) Tendonitis of left shoulder; Translations: [Other enthesopathies, not elsewhere classified] 05-23-2024 Episodic Other connective tissue disease (1 source) Complete rotator cuff tear or rupture of left shoulder, not specified as traumatic; Translations: [Complete tear of left rotator cuff, unspecified whether traumatic] Onset: 09-17-2024 Episodic Other female genital disorders (2 sources) Deep pain on intercourse; Translations: [Deep dyspareunia] 06-08-2023 Chronic Other female genital disorders (1 source) Vaginal discharge; Translations: [Other specified noninflammatory disorders of vagina] 06-08-2023 Episodic Other gastrointestinal disorders (19 sources) Irritable bowel syndrome with diarrhea; Translations: [Irritable bowel syndrome with diarrhea] Onset: 08-28-2024 08-28-2024 Chronic Other gastrointestinal disorders (13 sources) Diarrhea; Translations: [Diarrhea, unspecified] 07-07-2021 Episodic Other liver diseases (8 sources) Steatosis of liver; Translations: [Fatty (change of) liver, not elsewhere classified] 08-03-2021 Chronic Other liver diseases (11 sources) Fatty (change of) liver, not elsewhere classified; Translations: [Other chronic nonalcoholic liver disease] 12-26-2022 Chronic Other liver diseases (12 sources) Large liver; Translations: [Hepatomegaly, not elsewhere classified] 12-26-2022 Episodic Other liver diseases (3 sources) Hepatomegaly, not elsewhere classified; Translations: [Hepatomegaly] 12-26-2022 Episodic Other lower respiratory disease (12 sources) Cough; Translations: [Cough] 02-09-2018 Episodic Other nervous system disorders (2 sources) Bilateral carpal tunnel syndrome; Translations: [Carpal tunnel syndrome, bilateral upper limbs] 05-23-2024 Chronic Other nervous system disorders (1 source) Carpal tunnel syndrome of left wrist; Translations: [Carpal tunnel syndrome, left upper limb] 06-03-2024 Chronic Other nervous system disorders (1 source) Other chronic pain; Translations: [Chronic left shoulder pain] Onset: 09-17-2024 Chronic Other nervous system disorders (1 source) Postoperative pain ; Translations: [Other acute postprocedural pain] 09-17-2024 Episodic Other nervous system disorders (1 source) Other acute postprocedural pain; Translations: [Postoperative pain] Onset: 07-16-2024 Episodic Other non-traumatic joint disorders (12 sources) Hip pain; Translations: [Pain in unspecified hip] 12-31-2021 Episodic Other non-traumatic joint disorders (4 sources) Chronic pain of left upper limb; Translations: [Pain in left shoulder] 03-21-2024 Episodic Other non-traumatic joint disorders (3 sources) Disorder of shoulder; Translations: [Other specified joint disorders, unspecified shoulder] 03-21-2024 Episodic Other non-traumatic joint disorders (1 source) Pain in left shoulder; Translations: [Chronic left shoulder pain] Onset: 09-17-2024 Episodic Other non-traumatic joint disorders (1 source) Pain in left knee; Translations: [Pain in joint, lower leg] 10-30-2024 Episodic Other non-traumatic joint disorders (5 sources) Multiple joint pain; Translations: [Pain in unspecified joint] 11-22-2024 Episodic Other non-traumatic joint disorders (2 sources) Pain in unspecified joint; Translations: [Pain in joint, multiple sites] Onset: 12-19-2024 Episodic Other nutritional; endocrine; and metabolic disorders (13 sources) Obesity; Translations: [Obesity, unspecified] 12-26-2022 Chronic Other nutritional; endocrine; and metabolic disorders (5 sources) Obesity, unspecified; Translations: [Obesity, unspecified] 12-26-2022 Chronic Other nutritional; endocrine; and metabolic disorders (18 sources) Obesity caused by energy imbalance; Translations: [Other obesity due to excess calories] Onset: 02-16-2016 02-16-2016 Chronic Other nutritional; endocrine; and metabolic disorders (19 sources) Body mass index 30+ - obesity; Translations: [Body mass index (BMI) 39.0-39.9, adult] Onset: 02-16-2016 08-28-2024 Chronic Other nutritional; endocrine; and metabolic disorders (1 source) Morbid (severe) obesity due to excess calories; Translations: [Morbid (severe) obesity due to excess calories] Onset: 07-18-2024 Chronic Other nutritional; endocrine; and metabolic disorders (1 source) Body mass index (BMI) 40.0-44.9, adult; Translations: [Body mass index [BMI] 40.0-44.9, adult] Onset: 07-18-2024 Chronic Other screening for suspected conditions (not mental disorders or infectious disease) (2 sources) Inconclusive mammography finding; Translations: [Inconclusive mammogram] 06-08-2023 Episodic Other skin disorders (12 sources) Seborrheic keratosis; Translations: [Other seborrheic keratosis] 06-01-2021 Episodic Comment on above: in gluteal fold x2 Other skin disorders (8 sources) Mass of subcutaneous tissue of back; Translations: [Localized swelling, mass and lump, trunk] 09-26-2022 Episodic Comment on above: Left mid/upper back ultrasound consistent with lipoma as well as exam Other skin disorders (1 source) Localized swelling, mass and lump, trunk; Translations: [Localized superficial swelling, mass, or lump] 09-26-2022 Episodic Residual codes; unclassified (1 source) Insomnia; Translations: [Other insomnia] 09-17-2024 Chronic Residual codes; unclassified (20 sources) Family history of cancer of colon; Translations: [Family history of malignant neoplasm of digestive organs] Onset: 02-16-2016 02-09-2018 Episodic Residual codes; unclassified (1 source) Pain; Translations: [Pain, unspecified] 03-21-2024 Episodic Residual codes; unclassified (2 sources) History of operative procedure on shoulder; Translations: [Other specified postprocedural states] 09-30-2024 Episodic Residual codes; unclassified (1 source) Postmenopausal state; Translations: [Asymptomatic menopausal state] 12-19-2024 Episodic Residual codes; unclassified (1 source) Other specified postprocedural states; Translations: [Other specified postprocedural states] Onset: 12-12-2024 Episodic Spondylosis; intervertebral disc disorders; other back problems (12 sources) Myofascial pain syndrome of thorax; Translations: [Pain in thoracic spine] 08-22-2019 Episodic Unclassified (1 source) Chronic pain of left knee 10-30-2024 Unclassified (2 sources) K76.0 - Fatty (change of) liver, not elsewhere classified,E66.01 - Morbid (severe) obesity due to excess calories,Z68.41 - Body mass index [BMI] 40.0-44.9, adult Unclassified (1 source) Metabolic dysfunction-associate d steatotic liver disease (MASLD) Urinary tract infections (12 sources) Recurrent urinary tract infection; Translations: [Urinary tract infection, site not specified] 03-20-2018 Episodic Past or Other Problems Problem Classification Problem Date Documented Date Episodic/Chronic Cardiac dysrhythmias (19 sources) Palpitations; Translations: [Palpitations] Onset: 08-28-2024 08-28-2024 Episodic Diabetes mellitus without complication (20 sources) Prediabetes; Translations: [Prediabetes] Onset: 02-16-2016 02-16-2016 Episodic Other connective tissue disease (20 sources) Lateral epicondylitis of bilateral humerus; Translations: [Lateral epicondylitis, right elbow] Onset: 02-16-2016 02-16-2016 Episodic Other connective tissue disease (20 sources) Medial epicondylitis of right humerus; Translations: [Medial epicondylitis, right elbow] Onset: 02-16-2016 02-16-2016 Episodic Other non-epithelial cancer of skin (19 sources) Squamous cell carcinoma of skin; Translations: [Squamous cell carcinoma of skin, unspecified] Onset: 08-28-2024 08-28-2024 Episodic Residual codes; unclassified (1 source) Pain, unspecified; Translations: [Pain] Onset: 03-21-2024 Episodic Sprains and strains (2 sources) Anterior to posterior tear of superior glenoid labrum of left shoulder; Translations: [Superior glenoid labrum lesion of left shoulder, initial encounter] Onset: 05-05-2024 03-21-2024 Episodic Results Test Name Value Interpretation Reference Range Facility Gastroenterology Visit Repor ton 01-08-2025 Gastroenterology Visit Report [facility] [address] [place] [address] OFFICE VISIT Date of Service: 01/08/25 MR#: [id number] Acct: [id number] Name: ERNESTINA WADE Rep #: [id number] : 1970 Provider: Dr. Aniceto payan MD Age/Sex: 54/F Location: [facility] [place] Status: Signed Intake Vital Signs 08/20/24 10:03 01/08/25 09:29 Height 5 ft 4 in 5 ft 4 in Weight: 231 lb 228 lb BMI 39.6 39.1 BP 148/89 H 120/79 Blood Pressure Location Lt brachial Rt brachial Position Sitting Respiration 14 Pulse 69 68 Pulse Source Monitor Pulse Oximetry (%) 96 96 Oxygen Delivery Method room air room air Intake Visit Reasons: 4 M FU Phlebotomy Tech Required: No Accompanied by: Self Is patient in pain?: No Allergies metoclopramide (From Reglan) Adverse Reaction (Verified 01/08/25 09:24) [facility] Medications ???Medication ???Instructions ???Recorded ???Confirmed ???Type diltiazem HCl 120 mg 120 mg PO DAILY 05/28/21 01/08/25 History capsule,extended release 24 hr cholecalciferol (vitamin D3) 25 25 mcg PO DAILY 11/18/21 01/08/25 History mcg (1,000 unit) tablet (Vitamin D3) losartan 50 mg tablet 50 mg PO DAILY 06/21/23 01/08/25 H istory COVID-19 antigen test (Advin #1 ea 12/25/23 08/20/24 Rx COVID-19 Ag Home Test kit) ezetimibe 10 mg tablet 10 mg PO DAILY #90 tabs 05/03/24 0 01/08/25 Rx empagliflozin 25 mg tablet 25 mg PO QAM #90 tabs 07/18/24 Rx (Jardiance) semaglutide 0.25 mg or 0.5 mg (2 0.25 mg subcut QWEEK 01/08/25 04/3 0/25 History mg/3 mL) subcutaneous pen injector (Ozempic) [facility] Medical History Anxiety Diabetes Arthritis Leg cramps Wears contact lenses Wears glasses Post-menopausal Diabetes Arthritis Shortness of breath on exertion History of ulceration Non-smoker History of pain when walking History of edema History of echocardiogram Hypertension History of irregular heartbeat Obesity Diarrhea Lab test negative for COVID-19 virus Difficulty balancing Diarrhea Fatigue Shoulder pain Family history of colon cancer Polyuria Cough Vertigo Dizziness Menorrhagia Bronchitis Hypertension Fear of flying Type 2 diabetes mellitus Surgical History Status post surgical removal of malignant neoplasm of skin H/O carpal tunnel repair S/P left rotator cuff repair History of esophagogastroduodenosco py (EGD) History of esophagogastroduodenosco py (EGD) History of colonoscopy ( 2014) S/P right rotator cuff repair History of tubal ligation History of hysterectomy History of cholecystectomy Family History Father Hypertension Heart disease Colon cancer Diabetes Cancer stomach Grandmother Heart disease Cancer Lung Grandfather Colon cancer Uncle Colon cancer great uncle Aunt Diabetes Social History Smoking Status: Never smoker alcohol intake: current alcohol intake frequency: holidays/special occasions only substance use type: does not use seatbelt use: always do you feel safe at home: Yes HPI HPI Details: ERNESTINA WADE, is a 54 F who presents to the office today for *BGI established 07.07.21 for abdominal pain, bloating, diarrhea and obesity. Father was recently diagnosed with stomach cancer. History of cholecystectomy. ? CT abd/pel 08.02.21 fatty infiltration of the liver. ?US abd and elastography 08.10.21 liver measuring 21cm with liver stiffness measuring 7.8 (F2). ???Actos and ursodiol. OV 08.20.21 Continues to have problems with abdominal pain, diarrhea and bloating which has gotten better regarding frequency. Admits to a poor diet thought eating less portions lately which she feels may be contributing. She has been having increased stress regarding her father being placed in hospice care. In recent months she has been having some issues with heartburn that may be related to stress. Has not started ursodiol or actos because she had some questions regarding side effects. Start weight loss Phentermine (this was never filled r/t BP abnormality). OV 09.24.21 with reduced loose stool frequency though continues to have good and bad days. Instituted a fiber gummie which she finds helpful in firming stool. Loose stools may also be stress triggered. ?EGD 11.22.21 LA Grade A reflux esophagitis; non-bleeding gastric ulcer without stigmata of bleeding; duodenitis. Biopsy found prepyloric ulcer with inflammation and early granulation, acute duodenitis, esophageal inflammation without metaplasia. H.Pylori negative. OV 12.27.21 feels she is doing well overall. Do (more content not included)... Normal [facility] Antinuclear Antibody, IFAon 12-30-2024 TERESA, IFA Negative Normal . [facility] Comment on above: Result Comment: Nega tive <1:80 Borderline 1:80 Positive >1:80 ICAP nomenclature: AC-0 For more information about Hep-2 cell patterns use ANApatterns.org, the official website for the International Consensus on Antinuclear Antibody (TERESA) Patterns (ICAP). Performed at: - [facility] [id number] [employer] Operator: Yuri Lomax PhD, Phone: [phone] Performed By: #### L 101.9840, C7100.3829, F3819.5370, S205.4857, L501.1400, L501.3710 ####[facility] [address] [place], [address] ROMELIA + Protein Elect, Serumon 12-27-2024 Albumin [Mass/Vol] 3.4 g/dL Normal 2.9-4.4 [facility] Comment on above: Order Comment: Y Performed By: #### L 300.3900, L3100.3425, L506.1001 ####[facility] [address] [place], [address] Albumin/Globulin [Mass ratio] 1.1 {ratio} Normal 0.7-1.7 [facility] Comment on above: Order Comment: Y Performed By: #### L 300.3900, L3100.3425, L506.1001 ####[facility] [address] [place], [address] DCCPF-[id number] 0.3 g/dL Normal 0.0-0.4 [facility] Comment on above: Order Comment: Y Performed By: #### L 300.3900, L3100.3425, L506.1001 ####[facility] [address] [place], [address] DUKIR-1-IZSI 0.8 g/dL Normal 0.4-1.0 [facility] Comment on above: Order Comment: Y Performed By: #### L 300.3900, L3100.3425, L506.1001 ####[facility] [address] [place], [address] BETA GLOBULIN 1.1 g/dL Normal 0.7-1.3 [facility] Comment on above: Order Comment: Y Performed By: #### L 300.3900, L3100.3425, L506.1001 ####[facility] [address] [place], [address] GAMMA GLOBULIN 1.2 g/dL Normal 0.4-1.8 [facility] Comment on above: Order Comment: Y Performed By: #### L 300.3900, L3100.3425, L506.1001 ####[facility] [address] [place], [address] Globulin (S) [Mass/Vol] 3.4 g/dL Normal 2.2-3.9 [facility] Comment on above: Order Comment: Y Performed By: #### L 300.3900, L3100.3425, L506.1001 ####[facility] [address] [place], [address] ROMELIA RESULT,S Comment Normal . [facility] Comment on above: Order Comment: Y Result Comment: No m onoclonality detected. Performed By: #### L 300.3900, L3100.3425, L506.1001 ####[facility] [address] [place], [address] IMMUNOGLOB A QN 239 mg/dL Normal 87-352 [facility] Comment on above: Order Comment: Y Performed By: #### L 300.3900, L3100.3425, L506.1001 ####[facility] [address] [place], [address] IMMUNOGLOB G QN 1055 mg/dL Normal 586-1602 [facility] Comment on above: Order Comment: Y Performed By: #### L 300.3900, L3100.3425, L506.1001 ####[facility] [address] [place], [address] IMMUNOGLOB M QN 139 mg/dL Normal 26-217 [facility] Comment on above: Order Comment: Y Performed By: #### L 300.3900, L3100.3425, L506.1001 ####[facility] [address] [place], [address] M-Tyler Not Observed Normal Not Observed [facility] Comment on above: Order Comment: Y Performed By: #### L 300.3900, L3100.3425, L506.1001 ####[facility] [address] [place], [address] NOTE: Comment Normal . [facility] Comment on above: Order Comment: Y Result Comment: Prot ein electrophoresis scan will follow via computer, mail, or student assistance counselor delivery. Performed at: [address] [id number] [employer] Operator: Yuri Lomax PhD, Phone: [phone] Performed By: #### L 300.3900, L3100.3425, L506.1001 ####[facility] [address] [place], [place], [id number] Protein [Mass/Vol] 6.8 g/dL Normal 6.0-8.5 [facility] Comment on above: Order Comment: Y Performed By: #### L 3003900, L3100.3425, L506.1001 ####[facility] [address] [place], [place], [id number] CCP IgG Antibodieson 025 CCP IgG Ab. 8 units Normal 0-19 [facility] Comment on above: Result Comment: Nega tive <20 Weak positive 20 - 39 Moderate positive 40 - 59 Strong positive >59 Performed at: [address] [id number] [employer] Operator: Yuri Lomax PhD, Phone: [phone] Performed By: #### L 101.9900, L3100.7950, L4600.0100, L505.7010, L501.1400, L501.6710 ####[facility] [address] [place], [place], [id number] ABD Limited w/ Elastographyo n 12-25-2024 ABD Limited w/ Elastography [facility] Services [address], [place] [id number] ABD Limited w/ Elastography MR#: [id number] Acct: [id number] Name: ERNESTINA WADE Rep #: [id number] : 1970 F 54 From: Benny Shepherd MD PCP: Dr. Chikis Montana MD Status: REG CLI Study: ABD Limited w/ Elastography Date of Exam: 12/10 03/05 Exam# [id number] Ordering Dr: Aniceto Funk MD PROCEDURE: ABD LIMITED W/ ELASTOGRAPHY (USABDLELPARO), 12/25/2024 REASON FOR EXAM: NAFLD COMPARISON: None TECHNIQUE: Grayscale and color Doppler imaging of the right upper quadrant was performed. Explara S-shear wave elastography was performed for non-invasive assessment of liver tissue stiffness. FINDINGS: Liver: Markedly echogenic. 19.7 cm in length. Gallbladder: Surgically absent. Biliary tree: Unremarkable. CBD measures 6 mm. Pancreas: Partially obscured by shadowing bowel gas, grossly unremarkable as visualized. Right kidney: Unremarkable. 11.0 cm in length. Other: No visualized free fluid. Spleen measures 11.1 x 5.1 x 4.5 cm, within normal limits. Hepatic elastography: Number of measurements: 15 measurements across 3 regions, 5 measurements per region. US probe: CA1-7A. EQI median: 9.13 kPa EQI median velocity: 1.73 m/s IQR/Med: 20.4-27.1% (kPa) and 9.8-13.8% (m/s). If the IQR/Med is IQR/median >30% (for kPa) or >15% in m/s, the variance in the measurements is a large and the accuracy of the measurement may be in question. US/ABD Limited w/ Elastography IMPRESSION: 1. Borderline hepatomegaly and markedly echogenic appearance of the liver which is typically associated with hepatic steatosis although fibrosis/early cirrhosis could appear similarly. 2. Liver stiffness is 9.13 kPa. Per the below 2020 SRU criteria, this is suggestive of compensated advanced chronic liver disease but require further testing for confirmation. 3. Cholecystectomy without significant biliary dilatation. 4. Additional description as above. Assessment is per the Update to the SRU Liver Elastography Consensus Statement (2020) Note that the above assessment of liver fibrosis is vendor-neutral and intended for use in fibrosis related to viral etiologies and non-alcoholic fatty-liver disease (NAFLD); in causes other than viral hepatitis and NAFLD, the cutoff values are currently not well established. In some patients with NAFLD, the cutoff values for cACLD may be lower (7-9 kPa). Note also that in the setting of elevated LFTs, nonfasting or vascular congestion, the stage of lifer fibrosis may be overestimated. Previous SRU reference values: <1.37 m/s (5.7kPa): No to mild fibrosis 1.37 m/s - 2.2 m/s: Moderate to severe fibrosis >2.2 m/s (15kPa): Significant fibrosis / cirrhosis Reading Location: [id number] CC: Dr. Chikis Montana MD; Dr. Aniceto Funk MD Tagman: Signed Normal [facility] Albumin Elph [Mass/Vol]Order ed By: Aniceto Funk on 12-25-2024 Albumin [Mass/Vol] 3.4 g/dL 2.9-4.4 [facility] CRPon 12-25-2024 C-REACTIVE PROT 6.49 mg/L High 0.0-3.0 [facility] Comment on above: Performed By: #### L 101.9900, L3100.7950, L4600.0100, L505.7010, L501.1400, L501.6710 ####[facility] [address] [place], [address] CRP [Mass/Vol]on 12-25-2024 C-Reactive Protein Extended Range 6.49 mg/L High 0.0-3.0 [facility] Erythrocyte Sed Rateon 12-25 SED RATE 10 mm/hr Normal 0-30 [facility] Comment on above: Performed By: #### L 101.9900, L3100.7950, L4600.0100, L505.7010, L501.1400, L501.6710 ####[facility] [address] [place], [address] Erythrocyte sedimentation ra sofiya 12-25-2024 ESR (Bld) [Velocity] 10 mm/h 0-30 [facility] normalized rat io (INR) calculationOrdered By: Aniceto Funk on 12-25-2024 INR Coag (Bld) [Relative time] 0.9 {INR} [facility] Interpretation of serum or p lasma protein pattern by immunofixation (narrative resultOrdered By: Aniceto Funk on 12-25-2024 Protein Fractions Immunofixation Jacob [Interp] Not Observed g/dL Not Observed [facility] No Panel InformationOrdered By: Aniceto Funk on 12-25-2024 Addendum Document Comment . [facility] Comment on above: Protein electrophore sis scan will follow via computer,mail, or student assistance counselor delivery.Performed at: [facility] [id number] Director: Yuri Lomax PhD, Phone: [phone] Prothrombin Time w/INRon INR Coag (PPP) [Relative time] 0.9 {INR} Normal [facility] Comment on above: Performed By: #### L 300.3900, L3100.3425, L506.1001 ####[facility] [address] [place], [address] PT Coag (PPP) [Time] 12.4 s Normal 11.7-14.9 [facility] Comment on above: Performed By: #### L 300.3900, L3100.3425, L506.1001 ####[facility] [address] [place], [address] Prothrombin timeOrdered By: Aniceto Funk on 12-25-2024 PT Coag (PPP) [Time] 12.4 s 11.7-14.9 [facility] Rheumatoid Factoron 12-26-19 25 RHEUMATOID FAC < 10.0 Normal <15 [facility] Comment on above: Performed By: #### L 101.9900, L3100.7950, L4600.0100, L505.7010, L501.1400, L501.6710 ####[facility] [address] [place], [address] Rheumatoid factor Ql (S)on 0 12-25-2024 Rheumatoid Factor < 10.0 IU/mL <15 [facility] Serum globulin measurement ( mass/volume)Ordered By: Aniceto Funk on 12-25-2024 Globulin (S) [Mass/Vol] 3.4 g/dL 2.2-3.9 [facility] Serum or plasma C reactive p rotein measurement (mass/volume)on 12-25-2024 CRP [Mass/Vol] 6.49 mg/L High 0.0-3.0 [facility] Serum or plasma IgA measurem ent (mass/volume)Ordered By: Aniceto Funk on 12-25-2024 IgA [Mass/Vol] 239 mg/dL 87-352 [facility] Serum or plasma IgG measurem ent (mass/volume)Ordered By: Aniceto Funk on 12-25-2024 IgG [Mass/Vol] 1055 mg/dL [id number] [facility] Serum or plasma alpha 1 glob ulin measurement by electrophoresis (mass/volume)Ordered By: Aniceto Funk on 12-25-2024 Alpha 1 globulin Elph [Mass/Vol] 0.3 g/dL 0.0-0.4 [facility] Alpha 1 globulin Elph [Mass/Vol] 0.8 g/dL 0.4-1.0 [facility] Serum or plasma beta globuli n measurement by electrophoresis (mass/volume)Ordered By: Aniceto Funk on 12-25-2024 Beta globulin Elph [Mass/Vol] 1.1 g/dL 0.7-1.3 [facility] Serum or plasma cyclic citru llinated peptide IgG antibody assay (units/volume)on 12-25-2024 Cyclic citrullinated peptide IgG Qn 8 units 0-19 [facility] Comment on above: Negative <20 Weak po sitive 20 - 39 Moderate positive 40 - 59 Strong positive >59Performed at: [facility] [address] [id number] Director: Yuri Lomax PhD, Phone: [phone] Serum or plasma gamma globul in measurement by electrophoresis (mass/volume)Ordered By: Aniceto Funk on 12-25-2024 Gamma globulin Elph [Mass/Vol] 1.2 g/dL 0.4-1.8 [facility] Serum or plasma immunoelectr ophoresis interpretation (nominal result)Ordered By: Aniceto Funk on 12-25-2024 Interpretation IEP [Interp] Comment . [facility] Comment on above: No monoclonality det ected. Serum or plasma protein bina urement (mass/volume)Ordered By: Aniceto Funk on 12-25-2024 Protein [Mass/Vol] 6.8 g/dL 6.0-8.5 [facility] Serum or plasma uric acid me asurement (mass/volume)on 12-25-2024 Urate [Mass/Vol] 4.0 mg/dL 2.6-6.0 [facility] Comment on above: The drugs N-Acetylcy steine and Metamizole may falsely depress this assay. Serum rheumatoid factor dete ctionon 12-25-2024 Rheumatoid factor Ql (S) < 10.0 IU/mL <15 [facility] Uric Acidon 12-25-2024 URIC 4.0 mg/dL Normal 2.6-6.0 [facility] Comment on above: Result Comment: The drugs N-Acetylcysteine and Metamizole may falsely depress this assay. Performed By: #### L 101.9900, L3100.7950, L4600.0100, L505.7010, L501.1400, L501.6710 ####[facility] [address] [place], [place], [id number] Vitamin D, 25-hydroxyOrdered By: Aniceto Funk on 12-25-2024 Vitamin D 25-Hydroxy 50.0 ng/mL 30-100 [facility] Comment on above: Vitamin D StatusDefi ciency: <20 ng/mL (50nmol/L)Insufficiency: 20-30 ng/mL (50-75 nmol/L)Sufficiency: 30-100 ng/mL (75-250 nmol/L)Toxicity: >100 ng/mL (>250 nmol/L) Vitamin D,25 Hydroxyon 12-25 Vitamin D 25-OH 50.0 ng/mL Normal 30-100 [facility] Comment on above: Order Comment: THE O THER LABS WERE COMPLETED FRO PT DOES NOT WANTTO COMPLETE AGAIN Result Comment: Sherine min D Status Deficiency: <20 ng/mL (50nmol/L) Insufficiency: 20-30 ng/mL (50-75 nmol/L) Sufficiency: 30-100 ng/mL (75-250 nmol/L) Toxicity: >100 ng/mL (>250 nmol/L) Performed By: #### L 300.3900, L3100.3425, L506.1001 ####[facility] [address] [place], [address] CNOVon 12-19-2024 CNOV Office Visit (RHWSTR ) -------- ERNESTINA WADE ([id number]) 1970 F Date Time Provider Department 12/19/24 8:00 AM MCKENZIE WILLIS [facility] During your visit today, we recorded the following information about you: Pulse Respiration Blood pressure Weight 69/minute 17/minute 127/82 103.4 kg Mckenzie Willis PA-C 12/19/2024 4:49 PM Signed Rheumatology CONSULTATION Date of Service: 12/19/2024 Patient: Ernestina Wade Medical Record: [id number] Primary Care Physician: Chikis Montana MD Last Rheumatology visit: None at [facility] Referring Provider: Domonique Hoang [address] [facility] [address] Ernestina Wade is here today at request of Dr. Hoang specifically for consultation of my opinion in regards to the chief complaint listed below. Correspondence will be shared today via the [employer] electronic health record or through regular mail, where applicable. History of Present Illness Ernestina is a 54-year-old female with a history of HLD, HTN, T2DM, IBS, and fatty liver disease, presenting for evaluation of chronic joint pain. Ernestina reports a current pain level of 2 (Shoulder-Left). She describes the pain as Aching. The pain is Intermittent . She is currently taking methylprednisolone. Ernestina reports chronic joint pain and stiffness, primarily affecting her knees, shoulders, and feet, with symptoms beginning around 2018. She describes the pain as deep and aching, sometimes feeling as if it extends to the bone. The pain is variable, with some days being worse than others, and is not always associated with activity. She notes that the pain can be severe enough to limit her mobility, recalling an incident in 2018 where she had to crawl up stairs due to leg weakness and fatigue at the end of the day. She denies any obvious swelling in the joints but admits she has not paid close attention to this. She experiences morning stiffness in her shoulders, knees, and feet, which improves after taking a hot shower. She avoids taking pain relievers due to concerns about her liver but will occasionally take naproxen or ibuprofen, which provide substantial relief. She denies chronic low back pain, oral or nasal ulcers, photosensitivity, Raynaud's phenomenon, fevers, or ocular inflammation. She reports dry skin but denies any history of psoriasis or psoriatic arthritis. She has a history of rotator cuff surgery on her right shoulder in 2018 and more recently had carpal tunnel release on her left hand in July and left shoulder surgery in September. She reports significant improvement in numbness and tingling in her hands since the carpal tunnel surgery. She denies pain and stiffness in her hands but notes occasional mild swelling in her fingers. She reports intermittent pain on the tops of her feet and ankles, sometimes associated with mild swelling. The pain does not wake her up at night. She denies any history of blood clots or miscarriages. She reports chronic fatigue, describing it as the story of her life. She has not been evaluated for sleep apnea but notes that her claims she snores sometimes. She denies waking up feeling breathless or gasping for air. She has a history of IBS with intermittent diarrhea and constipation. She has had a colonoscopy and is up to date on her screenings. She denies any family history of rheumatoid arthritis, lupus, Crohn's disease, or psoriatic arthritis. She notes a family history of gout on her mother's side and cancer on her father's side. She is postmenopausal following a partial hysterectomy in 2016. She denies any history of unexplained or unintentional weight loss, noting that her recent weight loss of approximately 40 pounds was intentional through diet and exercise. She has since gained back about 10 pounds due to decreased gym attendance. 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 She has two adult children. RHEUMATOLOGIC REVIEW OF SYSTEMS: NO ulcers in mouth or nose NO photosensenitivity NO history of blood clots NO miscarriages + fatigue - No history of Raynaud's No fevers NO bright red painful eyes NO sicca NO sob No cough + diarrhea, + constipation - She is UTD on colonoscopy No chronic back pain NO history of psoriasis + morning stiffness No weight loss No neuropathy Pain Evaluation 09/17/2024 09/17/2024 09/29/2024 10/23/2024 12/19/2024 Pain Evaluation Pain Score 2 2 3 1 2 Location Shoulder-Left Shoulder-Left Shoulder-Left Shoulder-Left Description Sore Aching;Burning;Dull;Itch ing Sore;Stiffness Aching Duration (#) 6 Duration (Timeframe) Minutes Weeks Frequency Intermittent Intermittent Intermittent Intervention Reposition;Relaxation;Co ld Medication;Reposition;Co ld -- Rheum/Ortho Arthrocentesis Injections (last 5) 09/17/2024 07:21 Injection History Medication bupi (more content not included)... [facility] XR FOOT 3V AP/LAT/OBL BILon 12-19-2024 XR FOOT 3V AP/LAT/OBL MADI * * *Final Report* * * DATE OF EXAM: Dec 19 2024 9:17AM [id number] [id number] - XR FOOT 3V AP/LAT/OBL MADI / PROCEDURE REASON: Pain in joint, multiple sites * * * * Physician Interpretation * * * * BILATERAL FOOT 3 VIEWS WITH WEIGHTBEARING: Clinical Statement: Pain in joint, multiple sites. Question erosion changes from rheumatoid arthritis/psoriatic arthritis. Comparison: None. FINDINGS: Bone mineralization is normal. The joint spaces are maintained. There are dorsal and plantar calcaneal enthesophytes bilaterally, left greater than right. There are midfoot degenerative changes bilaterally with mild dorsal spurring. No erosions or periostitis. No fracture. IMPRESSION: Degenerative changes. No findings of an inflammatory arthropathy. Tagman: AIDEE Transcribe Date/Time: Dec 22 2024 9:34P Dictated by : CANDELARIA MULLEN MD This examination was interpreted and the report reviewed and electronically signed by: CANDELARIA MULLEN MD on Dec 22 2024 9:36PM EST [id number] [facility] CNOVon 11-27-2024 CNOV Office Visit (OBGYWM ) -------- ERNESTINA WADE ([id number]) 1970 F Date Time Provider Department 11/27/24 8:00 AM TALHA LEA [facility] During your visit today, we recorded the following information about you: Blood pressure Weight 120/84 102.2 kg Talha Lea MD 11/27/2024 8:41 AM Signed [employer] offered: Patient accepts, visit chaperoned by Lilia Guevara MA. Ernestina Wade is a 54 year old female who presents for problem visit for evaluation of a recurrent lump on the right labia. . 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 Family history of colon cancer 02/16/2016 Lateral epicondylitis of both elbows 02/16/2016 Medial epicondylitis of right elbow 02/16/2016 Menorrhagia submucous fibroids Non morbid obesity due to excess calories 02/16/2016 Prediabetes 02/16/2016 Skin cancer PAST SURGICAL HISTORY Procedure Laterality Date COLONOSCOPY FLX DX W/COLLJ SPEC WHEN PFRMD 11/18/2010 Colonoscopy COLONOSCOPY SCREENING 07/03/2020 repeat 5 years recommended LAPAROSCOPY SURG CHOLECYSTECTOMY 09/11/2000 Cholecystectomy, lap PAST SURGICAL HISTORY OF Right 2023 right calf skin cancer removal PAST SURGICAL HISTORY OF 2023 Skin cancer removed from right calf REVISE MEDIAN N/CARPAL TUNNEL SURG Left 07/16/2024 SALPINGECTOMY 03/06/2017 SHOULDER SURGERY HX Right 02/27/2019 SHOULDER SURGERY HX Left 09/17/2024 rotator cuff TOTAL ABDOM HYSTERECTOMY 03/06/2017 TUBAL LIGATION HX 09/11/2004 FAMILY HISTORY Problem Relation Age of Onset None Mother GI Father diverticulitis, recurrent Hypertension Father Diabetes Father Colon Cancer Father other (stomach cancer) Father No Known Problems Brother No Known Problems Brother Cancer Maternal Grandmother lung cancer Alzheimer's Disease Paternal Grandmother Colon Cancer Paternal Grandfather Dementia Maternal Aunt Social History Tobacco Use Smoking status: Never Smokeless tobacco: Never Vaping Use Vaping status: Never Used Substance Use Topics Alcohol use: Yes Comment: rare Drug use: No Current Outpatient Medications Medication Sig colestipol (COLESTID) 1 gram tablet PLEASE SEE ATTACHED FOR DETAILED DIRECTIONS methylPREDNISolone (MEDROL, MANOJ,) 4 mg Dose-Pack As instructed per package (Patient not taking: Reported on 10/30/2024) ezetimibe (ZETIA) 10 mg tablet Take 1 tablet by mouth every afternoon. dilTIAZem CD (CARDIZEM CD, CARTIA XT) 120 mg 24 hr capsule Take 1 capsule by mouth once daily. JARDIANCE 10 mg tablet URSODIOL ORAL Taking 300 mg daily losartan (COZAAR) 50 mg tablet Take 1 tablet by mouth every afternoon. ergocalciferol, vitamin D2, (VITAMIN D2 ORAL) Take 1,000 Units by mouth once daily. No current facility-administered medications for this visit. Allergies As of Date: 11/27/2024 Allergen Noted Reaction REGLAN [METOCLOPRAMIDE HCL] 12/15/2015 Mental Status Change Fully Assessed 10/30/2024 REVIEW OF SYSTEMS Abdomen: No bloating, early satiety, indigestion, or increased flatulence. No abdominal pain, nausea, vomiting, diarrhea, or constipation. Bladder: No dysuria, gross hematuria, urinary frequency, urinary urgency, or incontinence. Breast: No breast lumps, nipple d/c, overlying skin changes, redness or skin retraction. Expanded ROS: N/A Allergies and current medication updated:Yes SENSITIVE EXAM: The sensitive examination was discussed with the Patient or Patient's Authorized Review Manager. As applicable, any other physician, advance practice provider, medical student, or other health professional student that will be observing or involved in the sensitive examination for educational or training purposes was discussed with the Patient or Authorized Review Manager. The Patient or Authorized Review Manager has agreed to proceed with the sensitive examination. (Sensitive examination includes inspection and/or palpation of the breasts, pelvis, prostate and anorectal regions). EXAM: LMP 03/21/2016 GENERAL: pleasant, female in no apparent distress PELVIC: , normal Bartholin's glands, urethra, [place]'s glands, no cervical lesions, good vaginal support, physiologic discharge present, normal appearing perineal body and perianal region, and noting a subcentimeter, resolving abscess that drained spontaneously. BIMANUAL: deferred ASSESSMENT AND PLAN: Assessment AND Plan Vulvar abscess Keflex rx if recurrs Talha Lea MD ftft> 30 m Talha Lea MD 11/27/2024 8:43 AM Signed Addended by: TALHA LEA (more content not included)... [facility] Absolute lymphocyte countOrd ered By: Chikis Montana on 11-13-2024 Lymphocytes Auto (Unsp spec) [#/Vol] 2.01 10*3/uL 0.83-4.51 [facility] Absolute neutrophil countOrd ered By: Chikis Montana on 11-13-2024 Neutrophils (Bld) [#/Vol] 4.1 10*3/uL 2.0-7.7 [facility] Albumin DL <= 20 mg/L (U) [M ass/Vol]Ordered By: Chikis Montana on 11-13-2024 Urine Random Microalbumin 27.3 mg/L NO RANGE EST. [facility] Anion gap in Serum or Plasma Ordered By: Chikis Montana on 11-13-2024 Anion gap [Moles/Vol] 11 mmol/L 5-15 [facility] Automated lymphocyte count a s percentage of total leukocytesOrdered By: Chikis Montana on 11-13-2024 Lymphocytes/100 WBC Auto (Unsp spec) 29.4 % 19-41 [facility] BUN/creatinine ratioOrdered By: Chikis Montana on 11-13-2024 Urea nitrogen/Creatinine [Mass ratio] 27.6 mg/mg High 10-20 [facility] Basophil percentageOrdered B y: Chikis Montana on 11-13-2024 Basophils/100 WBC (Bld) 0.3 % 0-1 [facility] Bilirubin, totalOrdered By: Chikis oMntana on 11-13-2024 Bilirubin [Mass/Vol] 0.17 mg/dL 0.00-1.30 [facility] CBC W/Diff, Automatedon Absolute Lymph 2.01 X10 3/uL Normal 0.83-4.51 [facility] Comment on above: Performed By: #### L 100.0100, L500.4100, L502.0250, L500.4050 #### [facility] [address] [place], [address] Absolute Neut 4.1 X10 3/uL Normal 2.0-7.7 [facility] Comment on above: Performed By: #### L 100.0100, L500.4100, L502.0250, L500.4050 #### [facility] [address] [place], [address] Basophils/100 WBC (Bld) 0.3 % Normal 0-1 [facility] Comment on above: Performed By: #### L 100.0100, L500.4100, L502.0250, L500.4050 #### [facility] [address] [place], [address] Eosinophils/100 WBC (Bld) 1.9 % Normal 0-5 [facility] Comment on above: Performed By: #### L 100.0100, L500.4100, L502.0250, L500.4050 #### [facility] [address] [place], [address] Erythrocyte distribution width (RBC) [Ratio] 13.2 % Normal 11.6-14.6 [facility] Comment on above: Performed By: #### L 100.0100, L500.4100, L502.0250, L500.4050 #### [facility] [address] [place], [address] Hematocrit (Bld) [Volume fraction] 45.5 % Normal 37-47 [facility] Comment on above: Performed By: #### L 100.0100, L500.4100, L502.0250, L500.4050 #### [facility] [address] [place] [place], [address] Hemoglobin (Bld) [Mass/Vol] 14.9 g/dL Normal 12.0-15.0 [facility] Comment on above: Performed By: #### L 100.0100, L500.4100, L502.0250, L500.4050 #### [facility] [address] [place], [address] IG% 0.400 Normal 0.0-0.9 [facility] Comment on above: Result Comment: IG% - Immature Granulocytes (promyelocytes, myelocytes and metamyelocytes) > 1% indicates that a LEFT SHIFT is Present. Performed By: #### L 100.0100, L500.4100, L502.0250, L500.4050 #### [facility] [address] [place] [place], [address] Lymphocytes/100 WBC (Bld) 29.4 % Normal 19-41 [facility] Comment on above: Performed By: #### L 100.0100, L500.4100, L502.0250, L500.4050 #### [facility] [address] [place], [address] MCH (RBC) [Entitic mass] 28.4 pg Normal 27.0-32.0 [facility] Comment on above: Performed By: #### L 100.0100, L500.4100, L502.0250, L500.4050 #### [facility] [address] [place], [address] MCHC (RBC) [Mass/Vol] 32.7 g/dL Normal 32-36 [facility] Comment on above: Performed By: #### L 100.0100, L500.4100, L502.0250, L500.4050 #### [facility] [address] [place], [address] MCV (RBC) [Entitic vol] 86.8 fL Normal 81-99 [facility] Comment on above: Performed By: #### L 100.0100, L500.4100, L502.0250, L500.4050 #### [facility] [address] [place], [address] Monocytes/100 WBC (Bld) 7.5 % Normal 0-10 [facility] Comment on above: Performed By: #### L 100.0100, L500.4100, L502.0250, L500.4050 #### [facility] [address] [place], [address] Neutrophils/100 WBC (Bld) 60.5 % Normal 47-70 [facility] Comment on above: Performed By: #### L 100.0100, L500.4100, L502.0250, L500.4050 #### [facility] [address] [place], [address] Nucleated RBC (Bld) [#/Vol] 0 10*3/uL Normal 0-5 [facility] Comment on above: Performed By: #### L 100.0100, L500.4100, L502.0250, L500.4050 #### [facility] [address] [place], [address] Platelet mean volume (Bld) [Entitic vol] 11.7 fL Normal 6.2-12.0 [facility] Comment on above: Performed By: #### L 100.0100, L500.4100, L502.0250, L500.4050 #### [facility] [address] [place], [address] Platelets (Bld) [#/Vol] 254 10*3/uL Normal 150-450 [facility] [facility] Comment on above: Performed By: #### L 100.0100, L500.4100, L502.0250, L500.4050 #### [facility] [address] [place], [address] RBC (Bld) [#/Vol] 5.24 10*6/uL Normal 4.2-5.4 [facility] Comment on above: Performed By: #### L 100.0100, L500.4100, L502.0250, L500.4050 #### [facility] [address] [place], [address] RDW SD 41.2 fl Normal 35.1-43.9 [facility] Comment on above: Performed By: #### L 100.0100, L500.4100, L502.0250, L500.4050 #### [facility] [address] [place], [address] WBC (Bld) [#/Vol] 6.8 10*3/uL Normal 4.4-11.0 [facility] Comment on above: Performed By: #### L 100.0100, L500.4100, L502.0250, L500.4050 #### [facility] [address] [place], [address] Calculated very low density lipoprotein (VLDL) cholesterol measurementOrdered By: Chikis Montana on 11-13-2024 Calculated very low density lipoprotein (VLDL) cholesterol measurement 22 mg/dL 5-40 [facility] VLDL Cholesterol 22 mg/dL 5-40 [facility] Carbon dioxide, total [Moles /volume] in Central venous bloodOrdered By: Chikis Montana on 11-13-2024 CO2 [Moles/Vol] 20.8 mmol/L Low 21.0-32.0 [facility] Chloride assayOrdered By: Christopher Montana on 11-13-2024 Chloride [Moles/Vol] 106 mmol/L 98-108 [facility] Comprehensive Metabolic Prof ilon 03-05-2025 Albumin [Mass/Vol] 4.1 g/dL Normal 3.5-5.0 [facility] Comment on above: Performed By: #### L 100.0100, L500.4100, L502.0250, L500.4050 #### [facility] [address] [place], [address] Albumin/Globulin [Mass ratio] 1.4 {ratio} Normal 0.9-2.4 [facility] Comment on above: Performed By: #### L 100.0100, L500.4100, L502.0250, L500.4050 #### [facility] [address] [place], [address] ALK PHOS 71 U/L Normal 35-104 [facility] Comment on above: Performed By: #### L 100.0100, L500.4100, L502.0250, L500.4050 #### [facility] [address] [place], [address] ALT [Catalytic activity/Vol] 45 U/L High <=34 [facility] Comment on above: Performed By: #### L 100.0100, L500.4100, L502.0250, L500.4050 #### [facility] [address] [place], [address] AST [Catalytic activity/Vol] 21 U/L Normal <=31 [facility] Comment on above: Performed By: #### L 100.0100, L500.4100, L502.0250, L500.4050 #### [facility] [address] [place], [address] Bilirubin [Mass/Vol] 0.17 mg/dL Normal 0.00-1.30 [facility] Comment on above: Performed By: #### L 100.0100, L500.4100, L502.0250, L500.4050 #### [facility] [address] [place], [address] BUN/CRE 27.6 RATIO High 10-20 [facility] Comment on above: Performed By: #### L 100.0100, L500.4100, L502.0250, L500.4050 #### [facility] [address] [place], [address] Calcium [Mass/Vol] 9.5 mg/dL Normal 7.6-11.0 [facility] Comment on above: Performed By: #### L 100.0100, L500.4100, L502.0250, L500.4050 #### [facility] [address] [place], [address] Chloride [Moles/Vol] 106 mmol/L Normal 98-108 [facility] Comment on above: Performed By: #### L 100.0100, L500.4100, L502.0250, L500.4050 #### [facility] [address] [place], [address] CO2 [Moles/Vol] 20.8 mmol/L Low 21.0-32.0 [facility] Comment on above: Performed By: #### L 100.0100, L500.4100, L502.0250, L500.4050 #### [facility] [address] [place], [address] Creatinine [Mass/Vol] 0.80 mg/dL Normal 0.70-1.20 [facility] Comment on above: Performed By: #### L 100.0100, L500.4100, L502.0250, L500.4050 #### [facility] [address] [place], [address] GAP 11 Normal 5-15 [facility] Comment on above: Performed By: #### L 100.0100, L500.4100, L502.0250, L500.4050 #### [facility] [address] [place], [address] GFR/1.73 sq M.predicted among non-blacks MDRD (S/P/Bld) [Vol rate/Area] 87 mL/min/{1.73_m2} Normal >60 [facility] Comment on above: Result Comment: mL/m in/1.73m2 CKD-EPI Creatinine Equation (2020) Performed By: #### L 100.0100, L500.4100, L502.0250, L500.4050 #### [facility] [address] [place], [address] Globulin (S) [Mass/Vol] 3.0 g/dL Normal 2.2-4.2 [facility] Comment on above: Performed By: #### L 100.0100, L500.4100, L502.0250, L500.4050 #### [facility] [address] [place], [address] Glucose [Mass/Vol] 171 mg/dL High 70-99 [facility] Comment on above: Performed By: #### L 100.0100, L500.4100, L502.0250, L500.4050 #### [facility] [address] [place], [address] Potassium [Moles/Vol] 4.3 mmol/L Normal 3.3-5.1 [facility] Comment on above: Performed By: #### L 100.0100, L500.4100, L502.0250, L500.4050 #### [facility] [address] [place], [address] Sodium [Moles/Vol] 138 mmol/L Normal 133-145 [facility] Comment on above: Performed By: #### L 100.0100, L500.4100, L502.0250, L500.4050 #### [facility] [address] [place], [address] T PROT 7.1 g/dL Normal 5.9-8.4 [facility] Comment on above: Performed By: #### L 100.0100, L500.4100, L502.0250, L500.4050 #### [facility] [address] [place], [address] Urea nitrogen [Mass/Vol] 22 mg/dL High 4-19 [facility] Comment on above: Performed By: #### L 100.0100, L500.4100, L502.0250, L500.4050 #### [facility] [address] [place], [address] Creatinine Unsp time (U) [Ma ss/Vol]Ordered By: Chikis Montana on 11-13-2024 Creatinine (U) [Mass/Vol] 112.00 mg/dL 28-217 [facility] Eosinophil percentageOrdered By: Chikis Montana on 11-13-2024 Eosinophils/100 WBC (Bld) 1.9 % 0-5 [facility] Erythrocyte distribution wid th ratioOrdered By: Chikis Monatna on 11-13-2024 Erythrocyte distribution width (RBC) [Ratio] 13.2 % 11.6-14.6 [facility] Erythrocyte distribution wid th standard deviationOrdered By: Chikis Montana on 11-13-2024 Erythrocyte distribution width (RBC) [Entitic vol] 41.2 fL 35.1-43.9 [facility] Erythrocyte distribution width (RBC) [Ratio] 41.2 fl 35.1-43.9 [facility] GFR/1.73 sq M.predicted chata g non-blacks MDRD (S/P/Bld) [Vol rate/Area]Ordered By: Chikis Montana on 11-13-2024 Estimated GFR (MDRD) Non-Af Amer 87 >60 [facility] Comment on above: mL/min/1.73m2 CKD-EP I Creatinine Equation (2020) Glomerular filtration rate ( GFR) estimation/1.73 sq m using serum, plasma, or whole bOrdered By: Chikis Montana on 11-13-2024 GFR/1.73 sq M.predicted among non-blacks MDRD (S/P/Bld) [Vol rate/Area] 87 mL/min/{1.73_m2} >60 [facility] Comment on above: mL/min/1.73m2 CKD-EP I Creatinine Equation (2020) Hematocrit Auto (Bld) [Volum e fraction]Ordered By: Chikis Montana on 11-13-2024 Hematocrit (Bld) [Volume fraction] 45.5 % 37-47 [facility] Hemoglobin measurementOrdere d By: Chikis Montana on 11-13-2024 Hemoglobin (Bld) [Mass/Vol] 14.9 g/dL 12.0-15.0 [facility] Immature granulocytes/100 WB C Auto (Bld)Ordered By: Chikis Montana on 11-13-2024 Immature granulocytes/100 WBC (Bld) 0.400 % 0.0-0.9 [facility] Comment on above: IG% - Immature Granu locytes (promyelocytes, myelocytes and metamyelocytes) > 1% indicates that a LEFT SHIFT is Present. Knee 1 or 2 Viewson 11-14-19 Knee 1 or 2 Views [facility] Imaging Services [address] [place], [place] [address] Knee 1 or 2 Views MR#: [id number] Acct: [id number] Name: ERNESTINA WADE Rep #: [id number] : 1970 F 54 From: Benny Shepherd MD PCP: Dr. Chikis Montana MD Status: REG CLI Study: Knee 1 or 2 Views Date of Exam: 11/13/24 Exam# [id number] Ordering Dr: Domonique Hoang PROCEDURE: KNEE 1 OR 2 VIEWS; KNEES STANDING AP BILATERAL REASON FOR EXAM: Left knee pain. TECHNIQUE: AP and PA views of both knees as well as lateral and sunrise views of the left knee were obtained. COMPARISON: None. FINDINGS: Fracture/dislocation: None evidence of the absence of an AP view. Joint space(s): Mild loss of left patellofemoral and bilateral medial compartment joint space. Suspect subchondral cystic changes in the bilateral medial femoral condyles, rhyz-mvjahaj-xgdz-right. Soft tissues: Unremarkable. Foreign bodies: None visible. Bone mineralization: Grossly unremarkable. RAD/Knee 1 or 2 Views IMPRESSION: 1. No visible acute displaced fracture. 2. 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 3. Additional description as above. Reading Location: [facility] CC: Dr. Domonique Hoang DO; Dr. Chikis Montana MD Tagman: Signed Normal [facility] Knees Standing AP Bilateralo n 11-13-2024 Knees Standing AP Bilateral [facility] Imaging Services [address] [place] [id number] Knees Standing AP Bilateral MR#: [id number] Acct: [id number] Name: ERNESTINA WADE Rep #: [id number] : 1970 F 54 From: Benny Shepherd MD PCP: Dr. Chikis Montana MD Status: REG CLI Study: Knees Standing AP Bilateral Date of Exam: 02/02 Exam# [id number] Ordering Dr: Chikis Montana MD PROCEDURE: KNEE 1 OR 2 VIEWS; KNEES STANDING AP BILATERAL REASON FOR EXAM: Left knee pain. TECHNIQUE: AP and PA views of both knees as well as lateral and sunrise views of the left knee were obtained. COMPARISON: None. FINDINGS: Fracture/dislocation: None evidence of the absence of an AP view. Joint space(s): Mild loss of left patellofemoral and bilateral medial compartment joint space. Suspect subchondral cystic changes in the bilateral medial femoral condyles, crmm-subvmtp-jdqv-right. Soft tissues: Unremarkable. Foreign bodies: None visible. Bone mineralization: Grossly unremarkable. RAD/Knees Standing AP Bilateral IMPRESSION: 1. No visible acute displaced fracture. 2. 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 3. Additional description as above. Reading Location: [facility] CC: Dr. Chikis Montana MD Tagman: Signed Normal [facility] LDL calc ser/plasOrdered By: Chikis Montana on 11-13-2024 Cholesterol in LDL [Mass/Vol] 93 mg/dL [facility] Comment on above: Nmastnuowh=672-439 m g/dL & Higher Eben=937 mg/dL or greater LDL Cholesterol, Calculated 93 mg/dL [facility] Comment on above: Fqfgurexmd=510-462 m g/dL & Higher Ykag=274 mg/dL or greater Laboratory - Chemistry and C hemistry - challengeOrdered By: Chikis Montana on 11-13-2024 AST [Catalytic activity/Vol] 21 U/L <32 [facility] Lipid Profileon 11-13-2024 CHOL:HDL 3.33 Normal [facility] Comment on above: Performed By: #### L 100.0100, L500.4100, L502.0250, L500.4050 #### [facility] [address] [facility] [facility] [address] Cholesterol [Mass/Vol] 164 mg/dL Normal <=200 [facility] Comment on above: Result Comment: Chol esterol level, Desirable <200 mg/dL Borderline high cholesterol 200-239 mg/dL High cholesterol >=240 mg/dL Recommendations of the NCEP Adult Treatment Panel for the following risk-cutoff thresholds for the [place] population. Performed By: #### L 100.0100, L500.4100, L502.0250, L500.4050 #### [facility] [address] [place], [address] Cholesterol in HDL [Mass/Vol] 49 mg/dL Normal [facility] Comment on above: Result Comment: Grisel onal Cholesterol Education Program (NCEP) guidelines: <40 mg/dL: Low HDL-cholesterol (major risk factor for CHD) >= 60 mg/dL: High HDL-cholesterol (negative risk factor for CHD) HDL-cholesterol is affected by a number of factors, e.g. smoking, exercise, hormones, sex and age. Performed By: #### L 100.0100, L500.4100, L502.0250, L500.4050 #### [facility] [address] [place], [address] Cholesterol in LDL [Mass/Vol] 93 mg/dL Normal [facility] Comment on above: Result Comment: Bord bwhjwb=007-001 mg/dL Higher Mfpi=251 mg/dL or greater Performed By: #### L 100.0100, L500.4100, L502.0250, L500.4050 #### [facility] [address] [place], [address] Cholesterol in VLDL [Mass/Vol] 22 mg/dL Normal 5-40 [facility] Comment on above: Performed By: #### L 100.0100, L500.4100, L502.0250, L500.4050 #### [facility] [address] [place], [address] Triglyceride [Mass/Vol] 110 mg/dL Normal [facility] Comment on above: Result Comment: The drugs N-Acetylcysteine and Metamizole may falsely depress this assay. Normal range: <150 mg/dL Borderline High: 150-199 mg/dL High: 200-499 mg/dL Very High: >500 mg/dL Performed By: #### L 100.0100, L500.4100, L502.0250, L500.4050 #### [facility] [address] [place], [address] Lymphocytes Auto (Unsp spec) [#/Vol]Ordered By: Chikis Montana on 11-13-2024 Lymphocytes (Bld) [#/Vol] 2.01 10*3/uL 0.83-4.51 [facility] Lymphocytes/100 WBC Auto (Un sp spec)Ordered By: Chikis Montnaa on 11-13-2024 Lymphocytes/100 WBC (Bld) 29.4 % 19-41 [facility] MCV (mean corpuscular volume ) determinationOrdered By: Chikis Montana on 11-13-2024 MCV (RBC) [Entitic vol] 86.8 fL 81-99 [facility] Mean corpuscular hemoglobin (MCH) determinationOrdered By: Chikis Montana on 11-13-2024 MCH (RBC) [Entitic mass] 28.4 pg 27.0-32.0 [facility] Mean corpuscular hemoglobin concentration (MCHC) determinationOrdered By: Chikis Montana on 11-13-2024 MCHC (RBC) [Mass/Vol] 32.7 g/dL 32-36 [facility] Mean platelet volume determi nationOrdered By: Chikis Montana on 11-13-2024 Platelet mean volume (Bld) [Entitic vol] 11.7 fL 6.2-12.0 [facility] Microalb:Creat Ratio,Random URon 11-13-2024 Creatinine [Mass/Vol] 112.00 mg/dL Normal 28-217 [facility] Comment on above: Performed By: #### L 100.0100, L500.4100, L502.0250, L500.4050 ####[facility] [address] [place], [address] MALB:CREAT 243.8 mg/g CRE Normal [facility] Comment on above: Performed By: #### L 100.0100, L500.4100, L502.0250, L500.4050 ####[facility] [address] [place], [address] MICROALBUMIN,UR 27.3 mg/L Normal NO RANGE EST. [facility] Comment on above: Performed By: #### L 100.0100, L500.4100, L502.0250, L500.4050 ####[facility] [address] [place], [address] Microalbumin/creat ratio urO rdered By: Chikis Montana on 11-13-2024 Urine Microalbumin/Creatinin e Ratio 243.8 mg/g CRE [facility] Monocyte percentageOrdered B y: Chikis Montana on 11-13-2024 Monocytes/100 WBC (Bld) 7.5 % 0-10 [facility] Neutrophil percentageOrdered By: Chikis Montana on 11-13-2024 Neutrophils/100 WBC (Bld) 60.5 % 47-70 [facility] Nucleated red blood cell per centageOrdered By: Chikis Montana on 11-13-2024 Nucleated RBC/100 WBC (Bld) [Ratio] 0 % 0-5 [facility] Platelet countOrdered By: Christopher Montana on 11-13-2024 Platelets (Bld) [#/Vol] 254 10*3/uL 150-450 [facility] Potassium (Unsp spec) [Mass/ Vol]Ordered By: Chikis Montana on 11-13-2024 Potassium [Moles/Vol] 4.3 mmol/L 3.3-5.1 [facility] Potassium measurement (mass/ volume)Ordered By: Chikis Montana on 11-13-2024 Potassium (Unsp spec) [Mass/Vol] 4.3 mmol/L 3.3-5.1 [facility] RBC Auto (Bld) [#/Vol]Ordere d By: Chikis Montana on 11-13-2024 RBC (Bld) [#/Vol] 5.24 10*6/uL 4.2-5.4 [facility] Random urine creatinine bina urement (mass/volume)Ordered By: Chikis Montana on 11-13-2024 Creatinine Unsp time (U) [Mass/Vol] 112.00 mg/dL 28-217 [facility] Screening total cholesterol/ high density lipoprotein (HDL) cholesterol ratioOrdered By: Chikis Montana on 11-13-2024 Cholesterol.total/Chol esterol in HDL [Mass ratio] 3.33 {ratio} [facility] Serum creatinine measurement (mass/volume)Ordered By: Chikis Montana on 11-13-2024 Creatinine [Mass/Vol] 0.80 mg/dL 0.70-1.20 [facility] Serum globulin measurementOr dered By: Chikis Montana on 11-13-2024 Globulin (S) [Mass/Vol] 3.0 g/dL 2.2-4.2 [facility] Serum glucose measurement (m ass/volume)Ordered By: Chikis Montana on 11-13-2024 Glucose [Mass/Vol] 171 mg/dL High 70-99 [facility] Serum or plasma alanine olmedo otransferase (ALT) measurementOrdered By: Chikis Montana on 11-13-2024 ALT [Catalytic activity/Vol] 45 U/L High <35 [facility] Serum or plasma albumin bina urement (mass/volume)Ordered By: Chikis Montana on 11-13-2024 Albumin [Mass/Vol] 4.1 g/dL 3.5-5.0 [facility] Serum or plasma albumin/glob ulin mass ratioOrdered By: Chikis Montana on 11-13-2024 Albumin/Globulin [Mass ratio] 1.4 {ratio} 0.9-2.4 [facility] Serum or plasma alkaline he sphatase measurementOrdered By: Chikis Montana on 11-13-2024 ALP [Catalytic activity/Vol] 71 U/L 35-104 [facility] Serum or plasma calcium bina urement (mass/volume)Ordered By: Chikis Montana on 11-13-2024 Calcium [Mass/Vol] 9.5 mg/dL 7.6-11.0 [facility] Serum or plasma cholesterol in HDL measurement (mass/volume)Ordered By: Chikis Montana on 11-13-2024 Cholesterol in HDL [Mass/Vol] 49 mg/dL >40 [facility] Comment on above: National Cholesterol Education Program (NCEP) guidelines:<40 mg/dL: Low HDL-cholesterol (major risk factor for CHD)>= 60 mg/dL: High HDL-cholesterol (negative risk factor for CHD)HDL-cholesterol is affected by a number of factors, e.g. smoking, exercise, hormones, sex and age. Serum or plasma cholesterol measurement (mass/volume)Ordered By: Chikis Montana on 11-13-2024 Cholesterol [Mass/Vol] 164 mg/dL <201 [facility] Comment on above: Cholesterol level, D esirable <200 mg/dLBorderline high cholesterol 200-239 mg/dLHigh cholesterol >=240 mg/dLRecommendations of the NCEP Adult Treatment Panel for the following risk-cutoff thresholds for the [place] population. Serum or plasma urea nitroge n measurement (mass/volume)Ordered By: Chikis Montana on 11-13-2024 Urea nitrogen [Mass/Vol] 22 mg/dL High 4-19 [facility] Sodium levelOrdered By: Jeri Montana on 11-13-2024 Sodium [Moles/Vol] 138 mmol/L 133-145 [facility] Total proteinOrdered By: Moe Montana on 11-13-2024 Protein [Mass/Vol] 7.1 g/dL 5.9-8.4 [facility] Triglycerides measurementOrd ered By: Chikis Montana on 11-13-2024 Triglyceride [Mass/Vol] 110 mg/dL <199 [facility] Comment on above: The drugs N-Acetylcy steine and Metamizole may falsely depress this assay. Normal range: <150 mg/dLBorderline High: 150-199 mg/dLHigh: 200-499 mg/dLVery High: >500 mg/dL Urine albumin measurement wi th detection limit of 20 mg/L or less (mass/volume)Ordered By: Chikis Montana on 11-13-2024 Albumin DL <= 20 mg/L (U) [Mass/Vol] 27.3 mg/L NO RANGE EST. [facility] White blood cell (WBC) count Ordered By: Chikis Montana on 11-13-2024 WBC (Bld) [#/Vol] 6.8 10*3/uL 4.4-11.0 [facility] DBT Breast - right diagnosti c for implanton 11-06-2024 IMPRESSION: Mass in the right breast at 12 o'clock, subareolar region is probably benign. This likely represents a sebaceous cyst. Follow-up with diagnostic mammogram and ultrasound is recommended in 6 months. BI-RADS Category 3: Probably Benign RISK: Based on the Tyrer-Cuzick (TC) risk assessment model, this patient has a 8.1% lifetime risk of developing breast cancer, meaning they are at average risk for developing breast cancer. However, this is only an estimate based on available history provided on the patient's questionnaire. We encourage all patients to talk with their providers about these results, further recommendations for managing breast health, and appropriate supplemental screening options if the patient has dense breast tissue. Interpreting Radiologist: Chastity Dvais M.D. Electronically signed on: 11/06/2024 Tagman: TENISHA Transcriquyen Date/Time: Nov 06 2024 8:33A Dictated by : CHASTITY DAVIS MD This examination was interpreted and the report reviewed and electronically signed by: CHASTITY DAVIS MD on Nov 06 2024 9:34AM [facility] DIVISION OF RADIOLOGY * * *Final Report* * * DATE OF EXAM: Nov 06 2024 8:47AM [facility] 0629 - RUTH DIAG W RANJANA RT / PROCEDURE REASON: Subareolar mass of right breast * * * * Physician Interpretation * * * * RESULT: [address] [place] [address] #[id number] - RUTH DIAG W RANJANA RT #[id number] - [facility] RT HISTORY: 54 year-old patient seen for diagnostic evaluation of a palpable abnormality in the right breast. Patient states no personal history of breast cancer. COMPARISON STUDIES: The present examination has been compared to prior imaging studies dated 03/22/2016 (mammogram), 08/16/2023 and 09/09/2024 (mammogram). MAMMOGRAM TECHNIQUE: The study was acquired using full field digital technology and interpreted from soft copy. Digital Breast Tomosynthesis (DBT) images were obtained and used to assist in the interpretation of this examination. MAMMOGRAM FINDINGS: There are scattered areas of fibroglandular density. There is an asymmetry in the right breast at 12 o'clock, subareolar region. This asymmetry correlates to the area of palpable concern in the right breast at 12 o'clock, subareolar region. ULTRASOUND TECHNIQUE: Targeted ultrasound of the indicated area was performed. Deutsch scale images were saved. ULTRASOUND FINDINGS: Ultrasound demonstrates an oval mass with circumscribed margins measuring 0.7 cm x 0.4 cm x 0.5 cm in the right breast at 12 o'clock, subareolar region. Finding correlates to the area of palpable concern in the right breast at 12 o'clock, subareolar region. This likely represents a sebaceous cyst. DIVISION OF RADIOLOGY Provider, Carmela Karine ivory [place] - 11/06/2024 * * *Final Report* * * DATE OF EXAM: Nov 06 2024 8:47AM [facility] 0629 - RUTH ARCELIA CHILEL RT / PROCEDURE REASON: Subareolar mass of right breast * * * * Physician Interpretation * * * * RESULT: [address] [place] [address] #[id number] - [facility] ARCELIA Velasquez RANJANA RT #[id number] - [facility] US BREAST LTD RT HISTORY: 54 year-old patient seen for diagnostic evaluation of a palpable abnormality in the right breast. Patient states no personal history of breast cancer. COMPARISON STUDIES: The present examination has been compared to prior imaging studies dated 03/22/2016 (mammogram), 08/16/2023 and 09/09/2024 (mammogram). MAMMOGRAM TECHNIQUE: The study was acquired using full field digital technology and interpreted from soft copy. Digital Breast Tomosynthesis (DBT) images were obtained and used to assist in the interpretation of this examination. MAMMOGRAM FINDINGS: There are scattered areas of fibroglandular density. There is an asymmetry in the right breast at 12 o'clock, subareolar region. This asymmetry correlates to the area of palpable concern in the right breast at 12 o'clock, subareolar region. ULTRASOUND TECHNIQUE: Targeted ultrasound of the indicated area was performed. Deutsch scale images were saved. ULTRASOUND FINDINGS: Ultrasound demonstrates an oval mass with circumscribed margins measuring 0.7 cm x 0.4 cm x 0.5 cm in the right breast at 12 o'clock, subareolar region. Finding correlates to the area of palpable concern in the right breast at 12 o'clock, subareolar region. This likely represents a sebaceous cyst. IMPRESSION IMPRESSION: Mass in the right breast at 12 o'clock, subareolar region is probably benign. This likely represents a sebaceous cyst. Follow-up with diagnostic mammogram and ultrasound is recommended in 6 months. BI-RADS Category 3: Probably Benign RISK: Based on the Tyrer-Cuzick (TC) risk assessment model, this patient has a 8.1% lifetime risk of developing breast cancer, meaning they are at average risk for developing breast cancer. However, this is only an estimate based on available history provided on the patient's questionnaire. We encourage all patients to talk with their providers about these results, further recommendations for managing breast health, and appropriate supplemental screening options if the patient has dense breast tissue. Interpreting Radiologist: Chastity Davis M.D. Electronically signed on: 11/06/2024 Tagman: TENISHA Transcribe Date/Time: Nov 06 2024 8:33A Dictated by : CHASTITY DAVIS MD This examination was interpreted and the report reviewed and electronically signed by: CHASTITY DAVIS MD on Nov 06 2024 9:34AM EST [facility] RUTH DIAG W RANJANA RTon 025 [facility]ANJANA RT * * *Final Report* * * DATE OF EXAM: Nov 06 2024 8:47AM W [id number] - RUTH [facility] W RANJANA RT / PROCEDURE REASON: Subareolar mass of right breast * * * * Physician Interpretation * * * * RESULT: [place] [address] #[id number] - RUTH DIAG W RANJANA RT #[id number] - [facility] RT HISTORY: 54 year-old patient seen for diagnostic evaluation of a palpable abnormality in the right breast. Patient states no personal history of breast cancer. COMPARISON STUDIES: The present examination has been compared to prior imaging studies dated 03/22/2016 (mammogram), 08/16/2023 and 09/09/2024 (mammogram). MAMMOGRAM TECHNIQUE: The study was acquired using full field digital technology and interpreted from soft copy. Digital Breast Tomosynthesis (DBT) images were obtained and used to assist in the interpretation of this examination. MAMMOGRAM FINDINGS: There are scattered areas of fibroglandular density. There is an asymmetry in the right breast at 12 o'clock, subareolar region. This asymmetry correlates to the area of palpable concern in the right breast at 12 o'clock, subareolar region. ULTRASOUND TECHNIQUE: Targeted ultrasound of the indicated area was performed. Deutsch scale images were saved. ULTRASOUND FINDINGS: Ultrasound demonstrates an oval mass with circumscribed margins measuring 0.7 cm x 0.4 cm x 0.5 cm in the right breast at 12 o'clock, subareolar region. Finding correlates to the area of palpable concern in the right breast at 12 o'clock, subareolar region. This likely represents a sebaceous cyst. IMPRESSION: Mass in the right breast at 12 o'clock, subareolar region is probably benign. This likely represents a sebaceous cyst. Follow-up with diagnostic mammogram and ultrasound is recommended in 6 months. BI-RADS Category 3: Probably Benign RISK: Based on the Tyrer-Cuzick (TC) risk assessment model, this patient has a 8.1% lifetime risk of developing breast cancer, meaning they are at average risk for developing breast cancer. However, this is only an estimate based on available history provided on the patient's questionnaire. We encourage all patients to talk with their providers about these results, further recommendations for managing breast health, and appropriate supplemental screening options if the patient has dense breast tissue. Interpreting Radiologist: Chastity Davis M.D. Electronically signed on: 11/06/2024 Tagman: TENISHA Transcribe Date/Time: Nov 06 2024 8:33A Dictated by : CHASTITY DAVIS MD This examination was interpreted and the report reviewed and electronically signed by: CHASTITY DAVIS MD on Nov 06 2024 9:34AM EST [id number] Normal [facility] [employer] [facility] RTon 11-06 [facility] [employer] [facility]AST Auto Secure RT * * *Final Report* * * DATE OF EXAM: Nov 06 2024 8:58AM [facility] [place] 0594 - [facility] [employer] [facility] [employer] RT / PROCEDURE REASON: Subareolar mass of right breast * * * * Physician Interpretation * * * * RESULT: [place] [address] #[id number] - [facility] ARCELIA CHILEL RT #[id number] - [facility] [employer] BREAST [employer] RT HISTORY: 54 year-old patient seen for diagnostic evaluation of a palpable abnormality in the right breast. Patient states no personal history of breast cancer. COMPARISON STUDIES: The present examination has been compared to prior imaging studies dated 03/22/2016 (mammogram), 08/16/2023 and 09/09/2024 (mammogram). MAMMOGRAM TECHNIQUE: The study was acquired using full field digital technology and interpreted from soft copy. Digital Breast Tomosynthesis (DBT) images were obtained and used to assist in the interpretation of this examination. MAMMOGRAM FINDINGS: There are scattered areas of fibroglandular density. There is an asymmetry in the right breast at 12 o'clock, subareolar region. This asymmetry correlates to the area of palpable concern in the right breast at 12 o'clock, subareolar region. ULTRASOUND TECHNIQUE: Targeted ultrasound of the indicated area was performed. Deutsch scale images were saved. ULTRASOUND FINDINGS: Ultrasound demonstrates an oval mass with circumscribed margins measuring 0.7 cm x 0.4 cm x 0.5 cm in the right breast at 12 o'clock, subareolar region. Finding correlates to the area of palpable concern in the right breast at 12 o'clock, subareolar region. This likely represents a sebaceous cyst. IMPRESSION: Mass in the right breast at 12 o'clock, subareolar region is probably benign. This likely represents a sebaceous cyst. Follow-up with diagnostic mammogram and ultrasound is recommended in 6 months. BI-RADS Category 3: Probably Benign RISK: Based on the Tyrer-Cuzick (TC) risk assessment model, this patient has a 8.1% lifetime risk of developing breast cancer, meaning they are at average risk for developing breast cancer. However, this is only an estimate based on available history provided on the patient's questionnaire. We encourage all patients to talk with their providers about these results, further recommendations for managing breast health, and appropriate supplemental screening options if the patient has dense breast tissue. Interpreting Radiologist: Chastity Davis M.D. Electronically signed on: 11/06/2024 Tagman: TENISHA Transcribe Date/Time: Nov 06 2024 8:58A Dictated by : CHASTITY DAVIS MD This examination was interpreted and the report reviewed and electronically signed by: CHASTITY DAVIS MD on Nov 06 2024 9:34AM EST [id number] [facility] No Panel InformationOrdered By: [facility] Provider on 11-06-2024 [facility] No Panel Informationon 11-06 Radiology Study observation (narrative) [facility] US Breast - right limitedon 11-06-2024 IMPRESSION: Mass in the right breast at 12 o'clock, subareolar region is probably benign. This likely represents a sebaceous cyst. Follow-up with diagnostic mammogram and ultrasound is recommended in 6 months. BI-RADS Category 3: Probably Benign RISK: Based on the Tyrer-Cuzick (TC) risk assessment model, this patient has a 8.1% lifetime risk of developing breast cancer, meaning they are at average risk for developing breast cancer. However, this is only an estimate based on available history provided on the patient's questionnaire. We encourage all patients to talk with their providers about these results, further recommendations for managing breast health, and appropriate supplemental screening options if the patient has dense breast tissue. Interpreting Radiologist: Chastity Davis M.D. Electronically signed on: 11/06/2024 Tagman: TENISHA Transcriquyen Date/Time: Nov 06 2024 8:58A Dictated by : CHASTITY DAVIS MD This examination was interpreted and the report reviewed and electronically signed by: CHASTITY DAVIS MD on Nov 06 2024 9:34AM [facility] DIVISION OF RADIOLOGY * * *Final Report* * * DATE OF EXAM: Nov 06 2024 8:58AM [facility] [place] 0594 - [facility] [employer] RT / PROCEDURE REASON: Subareolar mass of right breast * * * * Physician Interpretation * * * * RESULT: [place] [address] #[id number] - [facility] ARCELIA Velasquez RANJANA RT #[id number] - [facility] [employer] RT HISTORY: 54 year-old patient seen for diagnostic evaluation of a palpable abnormality in the right breast. Patient states no personal history of breast cancer. COMPARISON STUDIES: The present examination has been compared to prior imaging studies dated 03/22/2016 (mammogram), 08/16/2023 and 09/09/2024 (mammogram). MAMMOGRAM TECHNIQUE: The study was acquired using full field digital technology and interpreted from soft copy. Digital Breast Tomosynthesis (DBT) images were obtained and used to assist in the interpretation of this examination. MAMMOGRAM FINDINGS: There are scattered areas of fibroglandular density. There is an asymmetry in the right breast at 12 o'clock, subareolar region. This asymmetry correlates to the area of palpable concern in the right breast at 12 o'clock, subareolar region. ULTRASOUND TECHNIQUE: Targeted ultrasound of the indicated area was performed. Deutsch scale images were saved. ULTRASOUND FINDINGS: Ultrasound demonstrates an oval mass with circumscribed margins measuring 0.7 cm x 0.4 cm x 0.5 cm in the right breast at 12 o'clock, subareolar region. Finding correlates to the area of palpable concern in the right breast at 12 o'clock, subareolar region. This likely represents a sebaceous cyst. DIVISION OF RADIOLOGY Provider, [facility] - 11/06/2024 * * *Final Report* * * DATE OF EXAM: Nov 06 2024 8:58AM [facility] 0594 - [facility] [employer] BREAST [facility] [employer] RT / PROCEDURE REASON: Subareolar mass of right breast * * * * Physician Interpretation * * * * RESULT: [place] [address] #[id number] - [facility] ARCELIA Velasquez RANJANA RT #[id number] - [facility] [employer] BREAST [employer] RT HISTORY: 54 year-old patient seen for diagnostic evaluation of a palpable abnormality in the right breast. Patient states no personal history of breast cancer. COMPARISON STUDIES: The present examination has been compared to prior imaging studies dated 03/22/2016 (mammogram), 08/16/2023 and 09/09/2024 (mammogram). MAMMOGRAM TECHNIQUE: The study was acquired using full field digital technology and interpreted from soft copy. Digital Breast Tomosynthesis (DBT) images were obtained and used to assist in the interpretation of this examination. MAMMOGRAM FINDINGS: There are scattered areas of fibroglandular density. There is an asymmetry in the right breast at 12 o'clock, subareolar region. This asymmetry correlates to the area of palpable concern in the right breast at 12 o'clock, subareolar region. ULTRASOUND TECHNIQUE: Targeted ultrasound of the indicated area was performed. Deutsch scale images were saved. ULTRASOUND FINDINGS: Ultrasound demonstrates an oval mass with circumscribed margins measuring 0.7 cm x 0.4 cm x 0.5 cm in the right breast at 12 o'clock, subareolar region. Finding correlates to the area of palpable concern in the right breast at 12 o'clock, subareolar region. This likely represents a sebaceous cyst. IMPRESSION IMPRESSION: Mass in the right breast at 12 o'clock, subareolar region is probably benign. This likely represents a sebaceous cyst. Follow-up with diagnostic mammogram and ultrasound is recommended in 6 months. BI-RADS Category 3: Probably Benign RISK: Based on the Tyrer-Cuzick (TC) risk assessment model, this patient has a 8.1% lifetime risk of developing breast cancer, meaning they are at average risk for developing breast cancer. However, this is only an estimate based on available history provided on the patient's questionnaire. We encourage all patients to talk with their providers about these results, further recommendations for managing breast health, and appropriate supplemental screening options if the patient has dense breast tissue. Interpreting Radiologist: Chastity Davis M.D. Electronically signed on: 11/06/2024 Tagman: TENISHA Transcribe Date/Time: Nov 06 2024 8:58A Dictated by : CHASTITY DAVIS MD This examination was interpreted and the report reviewed and electronically signed by: CHASTITY DAVIS MD on Nov 06 2024 9:34AM EST [facility] CNOVon 10-30-2024 CNOV Office Visit (WILL ) -------- ESTUARDO WADEIDI ([id number]) 1970 F Date Time Provider Department 10/30/24 9:15 AM DOMONIQUE HOANG During your visit today, we recorded the following information about you: Domonique Hoang DO 10/30/2024 9:38 AM Signed Follow Up Visit Chief Complaint Ernestina Wade is a 54 year old female who presents today for follow up office visit. Patient presents with: Left Shoulder - Post Op, Pain, Follow Up History of Present Illness PAIN EVALUATION 10/23/2024 6347 Pain Level: 1 Pain Location: Shoulder-Left Description: Sore;Stiffness Duration Amount of Time: 6 Duration Units: Weeks Frequency: Intermittent Intervention/Comfort measure: -- PT HPI: Ernestina Wade is a 54 year old female for a follow up visit 6 weeks s/p Left shoulder arthroscopy, rc debridement, biceps tenotomy, sad/acromioplasty on 09/17/2024. Patient states that she is doing very well. Will have some pain/stiffness in the morning. Currently in physical therapy and progressing. Pain history is noted as above. Is there any overall improvement in your condition? Yes, pain and function Any new injury, since being seen last: No REVIEW OF SYMPTOMS: Patient did not have, and does not currently have, any weight loss, malaise, fever, chills, headache, chest pain, chest pressure, palpitations, cough, shortness of breath, orthopnea, paroxsymal nocturnal dyspnea, nausea, vomiting, diarrhea, constipation, melena, hematochezia, urinary difficulties, prolonged bleeding, easily bruising, heat or cold intolerance, new onset joint pain or swelling, new onset extremity weakness or numbness, new onset auditory or visual disturbances, lightheadedness, dizziness, partial loss of consciousness or full loss of consciousness. Current Outpatient Medications Medication Sig colestipol (COLESTID) 1 gram tablet PLEASE SEE ATTACHED FOR DETAILED DIRECTIONS ezetimibe (ZETIA) 10 mg tablet Take 1 tablet by mouth every afternoon. dilTIAZem CD (CARDIZEM CD, CARTIA XT) 120 mg 24 hr capsule Take 1 capsule by mouth once daily. JARDIANCE 10 mg tablet URSODIOL ORAL Taking 300 mg daily losartan (COZAAR) 50 mg tablet Take 1 tablet by mouth every afternoon. ergocalciferol, vitamin D2, (VITAMIN D2 ORAL) Take 1,000 Units by mouth once daily. methylPREDNISolone (MEDROL, MANOJ,) 4 mg Dose-Pack As instructed per package (Patient not taking: Reported on 10/30/2024) No current facility-administered medications for this visit. Physical Exam Vitals: [facility] 03/21/2016 Psych: Pleasant, good affect and mood General Appearance: Well appearing, alert, in no acute distress, well-hydrated, well nourished.. Skin: Skin color, texture, turgor normal, no suspicious rashes or lesions. Peripheral Pulses: Normal. Neurologic: Gait normal. Reflexes normal and symmetric. Sensation grossly intact.. Lymph Nodes: No cervical lymphadenopathy, No supraclavicular lymphadenopathy, No axillary lymphadenopathy., and No inguinal lymphadenopathy.. Respiratory: No recent pulmonary infection, hemoptysis, chronic cough, or shortness of breath at rest Rheumatologic: Joint deformities: left shoulder Right Shoulder Exam Right shoulder exam is normal. Tenderness The patient is experiencing no tenderness. Range of Motion Active abduction: normal Passive abduction: normal Extension: normal External rotation: normal Forward flexion: normal Internal rotation 0 degrees: normal Internal rotation 90 degrees: normal Muscle Strength Abduction: 5/5 Internal rotation: 5/5 External rotation: 5/5 Supraspinatus: 5/5 Subscapularis: 5/5 Biceps: 5/5 Tests Apprehension: negative Werner test: negative Cross arm: negative Impingement: negative Other Erythema: absent Sensation: normal Pulse: present Comments: B/l med, uln, rad, ax nerves intact Left Shoulder Exam Tenderness The patient is experiencing no tenderness. Range of Motion Active abduction: normal Passive abduction: normal Extension: normal External rotation: normal Forward flexion: normal Internal rotation 0 degrees: normal Internal rotation 90 degrees: normal Muscle Strength Abduction: 5/5 Internal rotation: 5/5 External rotation: 5/5 Supraspinatus: 5/5 Subscapularis: 5/5 Biceps: 5/5 Tests Apprehension: negative Werner test: negative Cross arm: negative Impingement: negative Other Erythema: absent Sensation: normal Pulse: present Assessment and Plan Radiographs: I have reviewed the images with the patient and family. Impression: Encounter Diagnosis ICD-10-CM 1. Chronic pain of left knee M25.562 XR KNEE GENERAL 4V AP BOTH/PA BOTH/LAT/MERC LEFT G89.29 2. S/P shoulder surgery Z98.890 Today, in detail, through a thorough evaluation, we discussed possible etiologies of pain and our plans for further diagnostic and thera (more content not included)... [facility] CNOVon 10-17-2024 CNOV Office Visit (OBGYWM ) -------- ERNESTINA WADE ([id number]) 1970 F Date Time Provider Department 10/17/24 10:00 AM YESENIA COLE OBGYWM During your visit today, we recorded the following information about you: Blood pressure Weight 138/94 103.4 kg Yesenia Cole APRN.INSPECTOR [employer]CISION [employer]SEM[employer]Y 10/17/2024 10:21 AM Signed Ernestina Wade is a 54 year old female who presents for problem visit right breast lump for 5 days. HPI: Patient noticed a small lump near the right areola over this past weekend. She denies any pain, fevers, chills, redness, or warmth to the area. Patient does had a normal mammogram in August 2024, she did not have this lump at that. 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 Family history of colon cancer 02/16/2016 Lateral epicondylitis of both elbows 02/16/2016 Medial epicondylitis of right elbow 02/16/2016 Menorrhagia submucous fibroids Non morbid obesity due to excess calories 02/16/2016 Prediabetes 02/16/2016 Skin cancer PAST SURGICAL HISTORY Procedure Laterality Date COLONOSCOPY FLX DX W/COLLJ SPEC WHEN PFRMD 11/18/2010 Colonoscopy COLONOSCOPY SCREENING 07/03/2020 repeat 5 years recommended LAPAROSCOPY SURG CHOLECYSTECTOMY 09/11/2000 Cholecystectomy, lap PAST SURGICAL HISTORY OF Right 2023 right calf skin cancer removal PAST SURGICAL HISTORY OF 2023 Skin cancer removed from right calf REVISE MEDIAN N/CARPAL TUNNEL SURG Left 07/16/2024 SALPINGECTOMY 03/06/2017 SHOULDER SURGERY HX Right 02/27/2019 SHOULDER SURGERY HX Left 09/17/2024 rotator cuff TOTAL ABDOM HYSTERECTOMY 03/06/2017 TUBAL LIGATION HX 09/11/2004 FAMILY HISTORY Problem Relation Age of Onset None Mother GI Father diverticulitis, recurrent Hypertension Father Diabetes Father Colon Cancer Father other (stomach cancer) Father No Known Problems Brother No Known Problems Brother Cancer Maternal Grandmother lung cancer Alzheimer's Disease Paternal Grandmother Colon Cancer Paternal Grandfather Dementia Maternal Aunt Social History Tobacco Use Smoking status: Never Smokeless tobacco: Never Vaping Use Vaping status: Never Used Substance Use Topics Alcohol use: Yes Comment: rare Drug use: No Current Outpatient Medications Medication Sig colestipol (COLESTID) 1 gram tablet PLEASE SEE ATTACHED FOR DETAILED DIRECTIONS ezetimibe (ZETIA) 10 mg tablet Take 1 tablet by mouth every afternoon. dilTIAZem CD (CARDIZEM CD, CARTIA XT) 120 mg 24 hr capsule Take 1 capsule by mouth once daily. JARDIANCE 10 mg tablet URSODIOL ORAL Taking 300 mg daily losartan (COZAAR) 50 mg tablet Take 1 tablet by mouth every afternoon. ergocalciferol, vitamin D2, (VITAMIN D2 ORAL) Take 1,000 Units by mouth once daily. methylPREDNISolone (MEDROL, MANOJ,) 4 mg Dose-Pack As instructed per package zolpidem (AMBIEN) 5 mg tablet Take 1 tablet by mouth at bedtime as needed for up to 7 days. (Patient not taking: Reported on 10/17/2024) No current facility-administered medications for this visit. Allergies As of Date: 10/17/2024 Allergen Noted Reaction REGLAN [METOCLOPRAMIDE HCL] 12/15/2015 Mental Status Change Fully Assessed 10/17/2024 REVIEW OF SYSTEMS Breast: see HPI. Expanded ROS: N/A Allergies and current medication updated:Yes SENSITIVE EXAM: The sensitive examination was discussed with the Patient or Patient's Authorized Review Manager. As applicable, any other physician, advance practice provider, medical student, or other health professional student that will be observing or involved in the sensitive examination for educational or training purposes was discussed with the Patient or Authorized Review Manager. The Patient or Authorized Review Manager has agreed to proceed with the sensitive examination. (Sensitive examination includes inspection and/or palpation of the breasts, pelvis, prostate and anorectal regions). EXAM: BP 138/94 Wt 228 lb (103.4kg) LMP 03/21/2016 GENERAL: pleasant, female in no apparent distress HEENT: Normocephalic, atraumatic, mucus membranes moist, and no lesions BREAST: soft, non-tender, symmetric, normal nipple-areolar complex, no lymphadenopathy, no nipple discharge, and on the top of the right areolar there is a small visible lump in the sitting position- the lump is not seen in the lying position but is felt CHEST: Normal inspiratory effort NEURO: alert and oriented x3,exam grossly non-focal EXTREMITIES: normal ASSESSMENT AND PLAN: Assessment AND Plan Subareolar mass of right breast Orders: [facility] RIGHT; Future US BREAST LTD RIGHT; Futu (more content not included)... [facility] CNOVon 10-10-2024 CNOV Office Visit (OBGYWM ) -------- DIANERAERNESTINA ([id number]) 1970 F Date Time Provider Department 10/10/24 1:10 PM YURY STEEL OBGYWM During your visit today, we recorded the following information about you: Blood pressure Weight 120/80 102.8 kg Yury Steel MD 10/10/2024 1:24 PM Signed [employer] Market Operator offered: Patient declines. Ernestina Claroszac is a 54 year old female who presents for follow up. HPI: Doing well. No fevers, chills, malaise. The lump has decreased in size, and the pain has resolved. No longer draining. Finished course of Keflex. 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 Family history of colon cancer 02/16/2016 Lateral epicondylitis of both elbows 02/16/2016 Medial epicondylitis of right elbow 02/16/2016 Menorrhagia submucous fibroids Non morbid obesity due to excess calories 02/16/2016 Prediabetes 02/16/2016 Skin cancer PAST SURGICAL HISTORY Procedure Laterality Date COLONOSCOPY FLX DX W/COLLJ SPEC WHEN PFRMD 11/18/2010 Colonoscopy COLONOSCOPY SCREENING 07/03/2020 repeat 5 years recommended LAPAROSCOPY SURG CHOLECYSTECTOMY 09/11/2000 Cholecystectomy, lap PAST SURGICAL HISTORY OF Right 2023 right calf skin cancer removal PAST SURGICAL HISTORY OF 2023 Skin cancer removed from right calf REVISE MEDIAN N/CARPAL TUNNEL SURG Left 07/16/2024 SALPINGECTOMY 03/06/2017 SHOULDER SURGERY HX Right 02/27/2019 TOTAL ABDOM HYSTERECTOMY 03/06/2017 TUBAL LIGATION HX 09/11/2004 FAMILY HISTORY Problem Relation Age of Onset None Mother GI Father diverticulitis, recurrent Hypertension Father Diabetes Father Colon Cancer Father other (stomach cancer) Father No Known Problems Brother No Known Problems Brother Cancer Maternal Grandmother lung cancer Alzheimer's Disease Paternal Grandmother Colon Cancer Paternal Grandfather Dementia Maternal Aunt Social History Tobacco Use Smoking status: Never Smokeless tobacco: Never Vaping Use Vaping status: Never Used Substance Use Topics Alcohol use: Yes Comment: rare Drug use: No Current Outpatient Medications Medication Sig methylPREDNISolone (MEDROL, MANOJ,) 4 mg Dose-Pack As instructed per package ezetimibe (ZETIA) 10 mg tablet Take 1 tablet by mouth every afternoon. dilTIAZem CD (CARDIZEM CD, CARTIA XT) 120 mg 24 hr capsule Take 1 capsule by mouth once daily. JARDIANCE 10 mg tablet URSODIOL ORAL Taking 300 mg daily losartan (COZAAR) 50 mg tablet Take 1 tablet by mouth every afternoon. ergocalciferol, vitamin D2, (VITAMIN D2 ORAL) Take 1,000 Units by mouth once daily. zolpidem (AMBIEN) 5 mg tablet Take 1 tablet by mouth at bedtime as needed for up to 7 days. No current facility-administered medications for this visit. Allergies As of Date: 10/10/2024 Allergen Noted Reaction REGLAN [METOCLOPRAMIDE HCL] 12/15/2015 Mental Status Change Fully Assessed 10/10/2024 REVIEW OF SYSTEMS Expanded ROS: See HPI. Allergies and current medication updated:Yes SENSITIVE EXAM: The sensitive examination was discussed with the Patient or Patient's Authorized Review Manager. As applicable, any other physician, advance practice provider, medical student, or other health professional student that will be observing or involved in the sensitive examination for educational or training purposes was discussed with the Patient or Authorized Review Manager. The Patient or Authorized Review Manager has agreed to proceed with the sensitive examination. (Sensitive examination includes inspection and/or palpation of the breasts, pelvis, prostate and anorectal regions). EXAM: BP 120/80 Wt 226 lb 9.6 oz (102.8kg) LMP 03/21/2016 GENERAL: pleasant, female in no apparent distress HEENT: Normocephalic and atraumatic NECK: full range of motion CHEST: Normal inspiratory effort PELVIC: Erythema has resolved. There is no swelling, redness, fluctuance, drainage. There is a pea sized firmness palpated in the right labia majora where the abscess has resolved. NEURO: exam grossly non-focal EXTREMITIES: normal ASSESSMENT AND PLAN: Assessment AND Plan Labial abscess Completed Keflex course. Abscess resolved. Discussed vulvar care and hygiene measures. Reviewed reasons to call. Yury Steel DO Medical Decision Making: Problems: Low: Acute, uncomplicated illness or injury Medical Decision Making Level: 2 - Straightforward Allergies As of Date: 10/10/2024 Noted Allergy Reaction REGLAN (METOCLOPRAMIDE HCL) 12/15/2015 1 - Mental Status Change Date Reviewed: 10/10/2024 Reviewed by: Lilia Guevara MA - Fully Asses (more content not included)... [facility] Inital Evaluation (1) - PTon 10-07-2024 Inital Evaluation (1) - PT [facility] [address] [place] [address] [address] [place] [address] / REHABILITATION SERVICES INITIAL EVALUATION MR#: [id number] Acct: [id number] Name: ERNESTINA WADE Rep #: [id number] : 1970 54 From: Jay Banuelos DPT Referring Dr.: ANTHONY STONE Status: REG RCR Insurance: [employer] SELF PAY INSURANCE Patient's Visit Information Visit Information Visit Information: ERNESTINA WADE is a 54 year old F referred to Physical Therapy by ANTHONY STONE with a diagnosis of L SAD, biceps tenotomy DOS: 09/17/24. Date of Evaluation: 09/30/24 Physical Therapist: Jay Banuelos DPT Visit Plan Frequency: 2x /Week Duration: 6 Weeks Plan: 1) PROM and progressing AAROM. Progressing to full. 2) RTC and deltoid isometrics progressing to functional strengthening. 3) pain control. Subjective Subjective: Pt. is here today for her initial evaluation with diagnosis of L SAD, biceps tenotomy, cuff debridement. DOS: 09/17/24. Pt reports overall doing well. No N/T noted. Pt. is out of sling now. Pt. denies N/T in either UE. Pt. reports being compliant with her HEP without issues. Pt. is having some difficulty with sleeping, especially on her L side. Pt. is hopeful to get back to all recreational and household activities without limitations. Pt. to go back an see physician in 4 weeks. 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 Pt. has not lifted at all, but does not have any restrictions. I did talk to her about easing back into activities, rather than going 100%, Pt. to reports understanding. Pain L shoulder: Pain Intensity (Out of 10): 5 Pain Intensity Range: 3 and 7 Objective Objective: POSTURE: Pt. has fairly normal posture in stance. L arm in slight guraded positioning. PALPATION: Pt. has normal healing incisions, no signs of infection. pt. does have soreness at anterior shoulder, no scapular symptoms noted. NEURO: Pt. has normal sensation in BUEs. Pt. has normal DTR bilaterally. ROM: PROM: L shoulder: flexion 150deg, abd 130deg, ER at side 40deg. AAROM: flexion 110deg, abd 90deg, MMT: 3+/5 throughout. Balance/Special Test Scores Quick DASH Score: 50.0000 Goals Goal 1:: LTG: P. to have increased PROM to full without increase in L shoulder pain. Goal Time Frame: 2 Weeks Goal 2:: LTG: Pt. to have full AROM of L shoulder without increase in symptoms. Goal Time Frame: 2-4 Weeks Goal 3:: STG: Pt. to sleep throughout the night without increase in L shoulder pain;. Goal Time Frame: 2 Weeks Goal 4:: LTG: Pt. to have symmetrical strength between BUEs allowing for increased ability to complete all ADLs. Goal Time Frame: 4-6 Weeks Goal 5:: LTG: Pt. to resume all work activities without increase in L shoulder pain. Goal Time Frame: 6-8 Weeks Rehabilitation Potential Physical Therapy Diagnosis: Pt. has signs and symptoms consistent with L SAD, biceps tenotomy. Pt. has marked hypomobility, weakness, increased pain and difficulty with ADLs. Pt. would benefit from PT to address the above limitations. Rehabilitation Potential: Excellent Anticipated Interventions Patient/Client Instruction: Educate patient on: Condition, Plan of Care, Risk Factors and Benefits of Fitness Program For the Purpose of:: To improve decision making, To facilitate caregiver knowledge, To improve self management, To prevent re-injury and To improve ability to perform tasks related to life management Therapeutic Exercise to Include: Strength training, Power training, Flexibilty training, Passive ROM, Active ROM and Scapular Strength/Stabilization For the Purpose of:: To decrease pain, To increase ROM, To improve nutrient delivery to tissue, To increase oxygenation perfusion, To improve muscle performance and motor function, To improve ability to perform ADL's, To improve health of tissue, To decrease soft tissue restriction, To increase flexibility/ROM and To improve endurance Manual Therapy Techniques to Include: Mobilization and Soft tissue mobilization For the Purpose of:: To decrease pain, To increase ROM, To improve nutrient delivery to tissue, To increase oxygenation perfusion and To improve muscle performance and motor function IF ES: Yes Cryotherapy (ice pack, ice massage): Yes For the Purpose of:: To decrease pain, To decrease swelling/inflammation and To increase ROM Text: Thank you for the opportunity to evaluate your patient. For Medicare and Medicare HMO plans, please review the plan of care and approve it. It will need to be FAXED BACK to us at [phone] for Medicare purposes. For Medicare only, by signing this I certify the plan of care. Please let me know if there are questions or concerns regarding this plan of care. Physician Signature: Date: ____ 10/07/24 0947 CC: DAVE (more content not included)... [facility] CNOVon 10-03-2024 CNOV Office Visit (OBGYWM ) -------- ERNESTINA WADE ([id number]) 1970 F Date Time Provider Department 10/03/24 3:20 PM YURY STEEL OBGYWM During your visit today, we recorded the following information about you: Blood pressure Weight 130/88 105.1 kg Yury Steel MD 10/03/2024 5:36 PM Signed [employer] Market Operator offered: Patient declines. Ernestina Wade is a 54 year old female who presents for problem visit - labial mass. HPI: About 1 week ago she noticed a lump over her right labia majora that was increasing in size. Yesterday it opened and drained a large amount of bloody fluid. She still notices a smaller lump at that site. No fevers, chills, nausea, vomiting. She has never had anything like this before. She recently had shoulder surgery, and reports bladder incontinence and was wearing a pad for 2 days in a row and unable to shower due to surgery which she suspects could have triggered this. 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 Family history of colon cancer 02/16/2016 Lateral epicondylitis of both elbows 02/16/2016 Medial epicondylitis of right elbow 02/16/2016 Menorrhagia submucous fibroids Non morbid obesity due to excess calories 02/16/2016 Prediabetes 02/16/2016 Skin cancer PAST SURGICAL HISTORY Procedure Laterality Date COLONOSCOPY FLX DX W/COLLJ SPEC WHEN PFRMD 11/18/2010 Colonoscopy COLONOSCOPY SCREENING 07/03/2020 repeat 5 years recommended LAPAROSCOPY SURG CHOLECYSTECTOMY 09/11/2000 Cholecystectomy, lap PAST SURGICAL HISTORY OF Right 2023 right calf skin cancer removal PAST SURGICAL HISTORY OF 2023 Skin cancer removed from right calf REVISE MEDIAN N/CARPAL TUNNEL SURG Left 07/16/2024 SALPINGECTOMY 03/06/2017 SHOULDER SURGERY HX Right 02/27/2019 TOTAL ABDOM HYSTERECTOMY 03/06/2017 TUBAL LIGATION HX 09/11/2004 FAMILY HISTORY Problem Relation Age of Onset None Mother GI Father diverticulitis, recurrent Hypertension Father Diabetes Father Colon Cancer Father other (stomach cancer) Father No Known Problems Brother No Known Problems Brother Cancer Maternal Grandmother lung cancer Alzheimer's Disease Paternal Grandmother Colon Cancer Paternal Grandfather Dementia Maternal Aunt Social History Tobacco Use Smoking status: Never Smokeless tobacco: Never Vaping Use Vaping status: Never Used Substance Use Topics Alcohol use: Yes Comment: rare Drug use: No Current Outpatient Medications Medication Sig methylPREDNISolone (MEDROL, MANOJ,) 4 mg Dose-Pack As instructed per package HYDROcodone-acetaminophe n (NORCO) 5-325 mg per tablet Take 1 tablet by mouth every 8 hours as needed for pain for up to 7 days. ezetimibe (ZETIA) 10 mg tablet Take 1 tablet by mouth every afternoon. dilTIAZem CD (CARDIZEM CD, CARTIA XT) 120 mg 24 hr capsule Take 1 capsule by mouth once daily. JARDIANCE 10 mg tablet URSODIOL ORAL Taking 300 mg daily losartan (COZAAR) 50 mg tablet Take 1 tablet by mouth every afternoon. ergocalciferol, vitamin D2, (VITAMIN D2 ORAL) Take 1,000 Units by mouth once daily. zolpidem (AMBIEN) 5 mg tablet Take 1 tablet by mouth at bedtime as needed for up to 7 days. No current facility-administered medications for this visit. Allergies As of Date: 10/03/2024 Allergen Noted Reaction REGLAN [METOCLOPRAMIDE HCL] 12/15/2015 Mental Status Change Fully Assessed 10/03/2024 REVIEW OF SYSTEMS Expanded ROS: See HPI. Allergies and current medication updated:Yes SENSITIVE EXAM: The sensitive examination was discussed with the Patient or Patient's Authorized Review Manager. As applicable, any other physician, advance practice provider, medical student, or other health professional student that will be observing or involved in the sensitive examination for educational or training purposes was discussed with the Patient or Authorized Review Manager. The Patient or Authorized Review Manager has agreed to proceed with the sensitive examination. (Sensitive examination includes inspection and/or palpation of the breasts, pelvis, prostate and anorectal regions). EXAM: BP 130/88 Wt 231 lb 9.6 oz (105.1kg) LMP 03/21/2016 GENERAL: pleasant, female in no apparent distress HEENT: Normocephalic and atraumatic NECK: full range of motion CHEST: Normal inspiratory effort PELVIC: There is a firm 1x1 cm area over the right labia major with surrounding erythema and edema with an area draining yellow fluid. No fluctuance NEURO: exam grossly non-focal EXTREMITIES: normal ASSESSMENT AND PLAN: Assessment AND Plan Vulvar abscess Vulvar cell (more content not included)... [facility] CNOVon 09-30-2024 CNOV Office Visit (ORMDNA ) -------- ERNESTINA WADE ([id number]) 1970 F Date Time Provider Department 09/30/24 10:30 AM ANTHONY STONE During your visit today, we recorded the following information about you: Anthony Stone PA-C 09/30/2024 1:01 PM Signed POST OP Dave Stone PA-C Orthopaedics [address] [place] [address] Dept: [phone] Sheri presents today for her 10-14 day visit from: left shoulder arthroscopic RC debridement, biceps tenotomy, and SAD/acromioplasty on 09/17/[address] Hoang. History: PAIN EVALUATION 09/29/2024 1628 Pain Level: 3 Description: Aching;Burning;Dull;Itch ing Duration Units: Minutes Frequency: Intermittent Intervention/Comfort measure: Medication;Reposition;Co ld Comments: Rash/ itchy taking benedryl She is doing well postoperatively. Patients rates her condition as improving. The patient discontinued her sling on POD3 but reports she has not been using her left arm very much since surgery. She reports itchy rash on left shoulder. She washed the area well and is taking benadryl and topical steroid with improvement. She is requesting PO steroid for the rash. The patient denies warmth, discharge, drainage, fevers, chills, sweats. She reports compliance with wound care. The patient stopped taking percocet. She is requesting a pain medication that is not as strong as percocet for PT. She reports no change in past medical AND surgical history, medications, allergies, social history, family history and review of systems since last visit, with the exception of the following: None Review of Systems Radiographs: Not applicable Physical Examination: Left shoulder: Appropriate postop appearance No evidence of erythema, warmth, discharge or drainage Incisions are clean/dry/intact Mild contact dermatitis over shoulder in the distribution of skin prep No tenderness about the greater tuberosity, lesser tuberosity, AC joint. mild tenderness about the bicipital groove Active forward flexion 60? degrees Positive axillary, musculocutaneous, median, ulna, and radial nerve function Positive distal pulses Assessment and Plan: 54 year old female 2 weeks S/P left shoulder arthroscopic RC debridement, biceps tenotomy, and SAD/acromioplasty Medrol dose pack issued for pruritic rash ; discussed conservative treatment [place] issued for pain control Begin physical therapy Begin using operative arm and advance activities as tolerated Post op care discussed, all questions answered. OARRS reviewed - Patient is taking medication appropriately, will refill rx. Follow up in 4 weeks for repeat clinical evaluation with Dr. Viktor Stone PA-C Orthopaedic Surgery Allergies As of Date: 09/30/2024 Noted Allergy Reaction REGLAN (METOCLOPRAMIDE HCL) 12/15/2015 1 - Mental Status Change Date Reviewed: 09/17/2024 Reviewed by: Cinthia Wheat RN - Fully Assessed Reason for Visit: Established Patient [175] Follow Up [171] Post Op [174] Primary Visit Diagnosis:S/P shoulder surgery [Z98.890] Order(s):CONSULT TO PHYSICAL THERAPY [9032] Order #: [id number]: 1 FUTURE methylPREDNISolone (MEDROL, MANOJ,) 4 mg Dose-PackAs instructed per packageDisp: 21 tabletRfl: 0 HYDROcodone-acetaminophe n (NORCO) 5-325 mg per tabletTake 1 tablet by mouth every 8 hours as needed for pain for up to 7 days.Disp: 20 tabletRfl: 0 Prescriptions as of 09/30/2024 - methylPREDNISolone (MEDROL, MANOJ,) 4 mg Dose-Pack As instructed per package - HYDROcodone-acetaminophe n (NORCO) 5-325 mg per tablet Take 1 tablet by mouth every 8 hours as needed for pain for up to 7 days. - zolpidem (AMBIEN) 5 mg tablet Take 1 tablet by mouth at bedtime as needed for up to 7 days. - ezetimibe (ZETIA) 10 mg tablet Take 1 tablet by mouth every afternoon. - dilTIAZem CD (CARDIZEM CD, CARTIA XT) 120 mg 24 hr capsule Take 1 capsule by mouth once daily. - JARDIANCE 10 mg tablet - URSODIOL ORAL Taking 300 mg daily - losartan (COZAAR) 50 mg tablet Take 1 tablet by mouth every afternoon. - ergocalciferol, vitamin D2, (VITAMIN D2 ORAL) Take 1,000 Units by mouth once daily. Problem List As Of Date 09/30/2024 Noted Resolved Essential hypertension [I10] 02/16/2016 BMI 39.0-39.9,adult [Z68.39] 02/16/2016 Lateral epicondylitis of both elbows [M77.11, M*02/16/2016 Medial epicondylitis of right elbow [M77.01] 02/16/2016 Family history of colon cancer [Z80.0] 02/16/2016 Prediabetes [R73.03] 02/16/2016 Mixed hyperlipidemia [E78.2] 06/25/2024 Palpitations [R00.2] 08/28/2024 Irritable bowel syndrome with diarrhea [K58.0] 08/28/2024 SCC (squamous cell carcinoma) [C44.92] 08/28/2024 Prescriptions ordered this encounter Disp Refills Start End METHYLPREDNISOLONE 4 MG TABLETS IN A* 21 t* 0 09/30/2024 Sig: As instructed per package HYDROCODONE 5 MG-ACETAMINOPHEN 325 M* 20 t* 0 (more content not included)... [facility] ANES POSTPROC EVALon 025 ANES POSTPROC EVAL HNO ID: [id number] Author: CELESTINO LÓPEZ MD Service: Anesthesiology Author Type: Anesthesiologist Type: Anesthesia Postprocedure Evaluation Filed: 09/17/2024 09:37 Note Text: POST ANESTHESIA EVALUATION NOTE : 1970 Procedure Summary Date: 09/17/24 Room / Location: CO OR / CO OR Anesthesia Start: 737 Anesthesia Stop: 850 Procedures: ARTHROSCOPY SHOULDER ROTATOR CUFF (Left: Shoulder) ARTHROSCOPY SHOULDER WITH SUBACROMIAL DECOMPRESSION (Left: Shoulder) ARTHROSCOPIC TENOTOMY BICEPS SINGLE TENDON (Left: Shoulder) Diagnosis: Complete tear of left rotator cuff, unspecified whether traumatic Chronic left shoulder pain (Complete tear of left rotator cuff, unspecified whether traumatic [M75.122]) (Chronic left shoulder pain [M25.512, G89.29]) Surgeons: Domonique Hoang DO Responsible Provider: Celestino López MD Anesthesia Type: general ASA Status: 3 Anesthesia Type: general Airway Type: ETT Last Vitals Vitals Value Taken Time BP 170/73 09/17/24 0930 Temp 36.1 ?C (97 ?F) 09/17/24 0854 Pulse 68 09/17/24 0935 Resp 15 09/17/24 0935 SpO2 91 % 09/17/24934 Vitals shown include unfiled device data. Post Anesthesia Patient Status Patient Evaluation: PACU. PACU/ICU Patient Condition: stable. Anticipated Disposition: phase 2 then home. Neurological Status: aware and responsive. Pulmonary Status: breathing comfortably on room air Airway Control: returned to baseline unsupported. Cardiovascular Status: stable. Pain Management: clinically adequate - multimodal analgesia pain management approach Postoperative Hydration: acceptable. Intraoperative Events: no significant anesthesia events Recommendation: continue current plan of care. Anesthesia Observations No Documentation SIGNATURE: Celestino López MD PATIENT NAME: Ernestina Wade DATE: September 17, 2024 TIME: 9:37 AM CSN: [id number] [facility] ANES PRE-OPon 09-17-2024 ANES PRE-OP HNO ID: [id number] Author: CELESTINO LÓPEZ MD Service: Anesthesiology Author Type: Anesthesiologist Type: Anesthesia Preprocedure Evaluation Filed: 09/17/2024 06:55 Note Text: ANESTHESIOLOGY DAY OF SURGERY NOTE : 1970 Procedure Information Date/Time: 09/17/24729 Procedure: ARTHROSCOPY SHOULDER ROTATOR CUFF (Left: Shoulder) Location: CO OR / CO OR Surgeons: Doomnique Hoang DO Estimated body mass index is 39.14 kg/m? as calculated from the following: Height as of this encounter: 162.6 cm (5' 4). Weight as of this encounter: 103.4 kg (228 lb). Most recent hematocrit and potassium results: Hematocrit 46.3 08/28/2024 Potassium 4.7 08/28/2024 Relevant Problems CARDIO (+) Essential hypertension Other (+) Lateral epicondylitis of both elbows I - PHYSICAL EVALUATION AIRWAY Patient intubated: No. Mallampati: II. TM distance: >3 FB. Neck ROM: full ROM without neurological symptoms. Mouth opening: adequate. Short neck: no. Thick neck: no DENTAL Dental findings: poor dentition. Additional exam findings: no II - ANESTHESIA PLAN ASA Score: 3 Anesthetic Plan: general Airway type: ETT NPO Status: adequate Beta [place] Monitoring Plan Monitoring plan: Standard ASA. Post Procedure Analgesic Plan Postoperative analgesic plan: parenteral or oral opioids and multimodal analgesia. Informed Consent Anesthetic risks, benefits, alternatives, personnel and consent discussed: yes. Patient / Responsible Constitution Party agrees to proceed: yes Patient / Surrogate agrees to blood products: yes DNR status not reviewed with patient and/or family prior to surgery. Significant changes in the patient condition since the History and Physical, not otherwise documented in primary service progress note: no. Potential Anesthesia issues that may suggest increased risk of complications or contraindication to planned procedure: none. Vitals Value Taken Time BP 174/83 09/17/24 0653 Pulse Resp 20 09/17/24 0653 Temp 36.1 ?C (97 ?F) 09/17/24 0653 SpO2 97 % 09/17/24 0653 Facility-Administered Medications as of 09/17/2024 Medication Dose Route Frequency - acetaminophen 1,000 mg tab(s) (TYLENOL) 1,000 mg ORAL Pre-Op Once - promethazine 12.5 mg tab(s) (PHENERGAN) 12.5 mg ORAL Pre-Op Once - scopolamine (delivers 1 mg over 3 days) 1 Patch (TRANSDERM-SCOP) 1 Patch TRANSDERMAL ONCE - scopolamine - VERIFY patch OTHER q 8 H - [START ON 09/18/2024] scopolamine - REMOVE PATCH OTHER ONCE - midazolam (PF) 2 mg injection (VERSED) 2 mg INTRAVENOUS ONCE - ceFAZolin iv piggyback 2 g in D5W (iso-osmotic) 100 mL (ANCEF) 2 g INTRAVENOUS Pre-Op Once - [COMPLETED] promethazine 12.5 mg tab(s) (PHENERGAN) 12.5 mg ORAL ONCE - [COMPLETED] ceFAZolin iv piggyback 2 g in D5W (iso-osmotic) 100 mL (ANCEF) 2 g INTRAVENOUS Pre-Op Once Outpatient Medications as of 09/17/2024 Medication Sig - ezetimibe (ZETIA) 10 mg tablet Take 1 tablet by mouth every afternoon. - dilTIAZem CD (CARDIZEM CD, CARTIA XT) 120 mg 24 hr capsule Take 1 capsule by mouth once daily. - URSODIOL ORAL Taking 300 mg daily - losartan (COZAAR) 50 mg tablet Take 1 tablet by mouth every afternoon. - [] oxyCODONE-acetaminophen (PERCOCET) 5-325 mg tablet Take 1 tablet by mouth every 6 hours as needed for pain for up to 5 days. - JARDIANCE 10 mg tablet - ergocalciferol, vitamin D2, (VITAMIN D2 ORAL) Take 1,000 Units by mouth once daily. I have interviewed and examined the patient. I have reviewed the medical record and/or the pre-anesthesia evaluation, pertinent labs, and test results. This contains updated information obtained within 48 hours of Surgery/Procedure. SIGNATURE: Celestino López MD PATIENT NAME: Ernestina Wade DATE: September 17, 2024 TIME: 6:54 AM CSN: [id number] [facility] NURSING PROGon 09-17-2024 NURSING PROG HNO ID: [id number] Author: SPARKLE YOUNG RN Service: ? Author Type: Registered Nurse Type: Nursing Progress Note Filed: 09/17/2024 07:32 Note Text: Dr. lópez at bedside for Left superclavicular nerve block. RN at bedside, pt monitored throughout, BP 174/83 Temp 36.1 ?C (97 ?F) (Temporal) Resp 20 Ht 162.6 cm (5' 4) Wt 103.4 kg (228 lb) LMP 03/21/2016 SpO2 97% BMI 39.14 kg/m? .Pt tolerated procedure without difficulty. [facility] OPERATIVE NOon 09-17-2024 OPERATIVE NO HNO ID: [id number] Author: DOMONIQUE HOANG DO Service: Orthopaedic Surgery Author Type: Physician Type: Operative Report Filed: 09/17/2024 08:47 Note Text: OPERATIVE/PROCEDURE REPORT LOG ID: [id number] SURGERY/PROCEDURE DATE: 09/17/2024 INCISION/PROCEDURE START TIME: 8:09 AM INCISION CLOSE/PROCEDURE END TIME: 8:36 AM SURGEON(S)/PROCEDURALIST (S) AND SHAFT SINKER(S): Surgeons and Role: * Domonique Hoang DO - Primary Physician Retort Or Condenser Press Operator: Tania Yanes PA-C Registered Nurse Microbiological Analyst: Martha Phillips RN SURGERY/PROCEDURE(S): Left shoulder arthroscopy, rc debridement, biceps tenotomy, sad/acromioplasty ANESTHESIA: General SURGERY/PROCEDURE DETAILS: Preop note Patient is a 54-year-old female with continued left shoulder pain recalcitrant to conservative treatment options. Risks benefits and alternatives surgery discussed with patient. Risks include but not limited to blood loss, blood clot, infection, neurovascular injury, failure of procedure, loss of life and loss of limb. Patient is aware would like to proceed with left shoulder arthroscopy repair as indicated. We also did discuss biceps tenodesis versus tenotomy patient prefers tenotomy as she can move her elbow faster she is aware of the visual scarring that she will see in the middle of her arm as well as slight loss of terminal supination strength. Operative note Patient was seen examined preop player. Patient received a preop regional block. Patient was brought to the operating room placed supine on the operating table. Sign in, anesthesia, antibiotics were administered. Patient was placed in beachchair positioning and long term through we did recheck her blood pressure which was stable throughout. All bony prominences were well-padded and SCD placed on her bilateral lower extremities. We marked out our bony landmarks for portal placement timeout was performed. We then used an 18-gauge to insufflate the glenohumeral joint from the posterior aspect and had good return. Then used an 11 blade to create our posterior portal. Began our diagnostic arthroscopy. The glenohumeral joint was unremarkable there were no loose bodies in the inferior recess the labrum was intact posteriorly. We then moved anteriorly subscap was intact and stable probing. The rotator cuff was intact there is slight fraying of the leading edge about 20% of the tendon. We then created anterior portal under direct visualization. We probed the biceps with head streaking along the biceps tendon lipstick sign as well as instability at its insertion on the labrum. We then performed our tenotomy and debrided back any loose piece of the labrum. We then used a shaver to debride back the articular surface side of the rotator cuff confirming about a 20% degenerative tear on the articular surface not extending to the bursal side. We did benny the tear with an 18-gauge spinal needle. We then moved to the subacromial space there is extensive bursitis throughout. We created a lateral portal under direct visualization. We resected with a combination of an ablator wand and shaver the thickened and hyperemic bursa sac and could gently coplanar the distal aspect of the lateral acromion. We were able to then visualize the tear from the bursal side that we had premarked with her 18-gauge spinal needle and it did not extend and the rotator cuff was intact and stable probing from the bursal side. We irrigated the subacromial space with copious amounts of sterile saline. Portals were closed sterile dressings were applied sling was applied. Patient Toller procedure well no complications transfer recovery in stable condition Postoperative Use arm as tolerated and DC sling within the next few days Percocet cold therapy and Ambien given to patient Call with increased pain numbness tingling further issues arise Comment: Please note this report has been produced using speech recognition software and may contain errors related to that system including errors in grammar, punctuation, and spelling, as well as words and phrases that may be inappropriate. If there are any questions or concerns please feel free to contact the dictating provider for clarification. PRE-OP/PRE-PROCEDURE DIAGNOSIS: left shoulder rc tear, impingment syndrome, slap tear POST-OP/POST-PROCEDURE DIAGNOSIS: Same as Preop ESTIMATED BLOOD LOSS: 0 ml SPECIMENS: None IMPLANTABLE DEVICES: NONE DRAINS: None COMPLICATIONS: None CLOSURE TECHNIQUE: Primary PARTICIPATION IN SURGERY/PROCEDURE: I/primary surgeon/proceduralist performed the procedure with assistance. No qualified resident/fellow was available. No qualified resident was available to assist in the case. The PA/INSPECTOR PRECISION ASSEMBLY assisted me with retraction and mobilization of the limb for optimal visualization and appropriate placement of implant/fracture reduction. He/She was essential for the proper performance of the surgical p (more content not included)... [facility] Randell 09-09-2024 CNPN Telephone (RDXWS) -------- ERNESTINA WADE ([id number]) 1970 F Date Time Provider Department 09/09/24 YURY STEEL During your visit today, we recorded the following information about you: Rashmi Paulino, Prizzm 09/09/2024 8:57 AM Signed Can you release the pt mammogram order STAT she has appt at 0930 Allergies As of Date: 09/09/2024 Noted Allergy Reaction REGLAN (METOCLOPRAMIDE HCL) 12/15/2015 1 - Mental Status Change Date Reviewed: 08/28/2024 Reviewed by: Efrain Hodges APRN.INSPECTOR PRECISION ASSEMBLY - Fully Assessed Reason for Visit: Orders [681] Prescriptions as of 09/09/2024 - ezetimibe (ZETIA) 10 mg tablet Take 1 tablet by mouth every afternoon. - dilTIAZem CD (CARDIZEM CD, CARTIA XT) 120 mg 24 hr capsule Take 1 capsule by mouth once daily. - JARDIANCE 10 mg tablet - URSODIOL ORAL Taking 300 mg daily - losartan (COZAAR) 50 mg tablet Take 1 tablet by mouth every afternoon. - ergocalciferol, vitamin D2, (VITAMIN D2 ORAL) Take 1,000 Units by mouth once daily. Problem List As Of Date 09/09/2024 Noted Resolved Essential hypertension [I10] 02/16/2016 BMI 39.0-39.9,adult [Z68.39] 02/16/2016 Lateral epicondylitis of both elbows [M77.11, M*02/16/2016 Medial epicondylitis of right elbow [M77.01] 02/16/2016 Family history of colon cancer [Z80.0] 02/16/2016 Prediabetes [R73.03] 02/16/2016 Mixed hyperlipidemia [E78.2] 06/25/2024 Palpitations [R00.2] 08/28/2024 Irritable bowel syndrome with diarrhea [K58.0] 08/28/2024 SCC (squamous cell carcinoma) [C44.92] 08/28/2024 Encounter Status:Closed by TEN SHEPHERD on 09/09/24 [facility] RUTH SCREENING W TOMOon 09-09 RUTH SCREENING W RANJANA * * *Final Report* * * DATE OF EXAM: Sep 09 2024 11:45AM WRW [id number] - RUTH SCREENING W RANJANA / PROCEDURE REASON: Encounter for screening mammogram for breast cancer * * * * Physician Interpretation * * * * RESULT: [address] [address] [place] [address] #[id number] - RUTH SCREENING W RANJANA HISTORY: Patient is 54 years old and is seen for screening and is asymptomatic in both breasts. Patient states no personal history of breast cancer. Patient states no personal history of other cancers. COMPARISON STUDIES: The present examination has been compared to prior imaging studies dated 03/22/2016 (mammogram) and 08/16/2023. MAMMOGRAM TECHNIQUE: The study was acquired using full field digital technology and interpreted from soft copy. Digital Breast Tomosynthesis (DBT) images were obtained and used to assist in the interpretation of this examination. Computer-aided detection was utilized by the radiologist in the interpretation of this examination. MAMMOGRAM FINDINGS: There are scattered areas of fibroglandular density. No suspicious masses, calcifications or other abnormalities are seen in either breast. There are no significant interval changes. IMPRESSION: There is no mammographic evidence of malignancy in either breast. Routine screening mammogram is recommended. Annual mammogram will be due in 1 year. BI-RADS Category 1: Negative RISK: Based on the Tyrer-Cuzick (TC) risk assessment model, this patient has a 8.1% lifetime risk of developing breast cancer, meaning they are at average risk for developing breast cancer. However, this is only an estimate based on available history provided on the patient's questionnaire. We encourage all patients to talk with their providers about these results, further recommendations for managing breast health, and appropriate supplemental screening options if the patient has dense breast tissue. Interpreting Radiologist: Niall Chicas M.D. Electronically signed on: 09/10/2024 Tagman: [email or web address] Transcribe Date/Time: Sep 09 2024 11:16A Dictated by: NIALL CHICAS MD This examination was interpreted and the report reviewed and electronically signed by: NIALL CHICAS MD on Sep 10 2024 10:16AM EST [id number] [facility] CBC W Auto Differential pane l (Bld)on 08-28-2024 Basophils (Bld) [#/Vol] [facility] Basophils/100 WBC (Bld) 0.2 % [facility] Differential cell count method Nom (Bld) Auto [facility] Eosinophils (Bld) [#/Vol] 0.11 10*3/uL [facility] Eosinophils/100 WBC (Bld) 1.7 % [facility] Erythrocyte distribution width (RBC) [Ratio] 13.4 % 11.5 - 15.0 % [facility] Hematocrit (Bld) [Volume fraction] 46.3 % High 36.0 - 46.0 % [facility] Hemoglobin (Bld) [Mass/Vol] 15.2 g/dL 11.5 - 15.5 g/dL [facility] Immature granulocytes (Bld) [#/Vol] 0.03 10*3/uL [facility] Immature granulocytes/100 WBC (Bld) 0.5 % [facility] Interpretation and review of laboratory results Abnormal [facility] Lymphocytes (Bld) [#/Vol] 2.05 10*3/uL [facility] Lymphocytes/100 WBC (Bld) 31.1 % [facility] MCH (RBC) [Entitic mass] 28.5 pg 26.0 - 34.0 pg [facility] MCHC (RBC) [Mass/Vol] 32.8 g/dL 30.5 - 36.0 g/dL [facility] MCV (RBC) [Entitic vol] 86.7 fL 80.0 - 100.0 fL [facility] Monocytes (Bld) [#/Vol] 0.50 10*3/uL [facility] Monocytes/100 WBC (Bld) 7.6 % [facility] Neutrophils (Bld) [#/Vol] 3.90 10*3/uL [facility] Neutrophils/100 WBC (Bld) 58.9 % [facility] Nucleated RBC (Bld) [#/Vol] [facility] Nucleated RBC/100 WBC (Bld) [Ratio] 0.0 % /100 WBC [facility] Platelet mean volume (Bld) [Entitic vol] 10.9 fL 9.0 - 12.7 fL [facility] Platelets (Bld) [#/Vol] 232 10*3/uL [facility] RBC (Bld) [#/Vol] 5.34 10*6/uL High 3.90 - 5.2 0 m/uL [facility] WBC (Bld) [#/Vol] 6.60 10*3/uL [facility] Basophils (Bld) [#/Vol] 10*3/uL Normal <0.11 [facility] Comment on above: Order Comment: Speci men Type: BLOOD SPECIMENOrdering Facility: [facility] Address: [address] [place] [address] Performed By: #### 5 7021-8 ####[facility] [id number] [place] [address] [place] Basophils/100 WBC (Bld) 0.2 % [facility] Comment on above: Order Comment: Speci men Type: BLOOD SPECIMENOrdering Facility: [facility] Address: [address] [place] [address] Performed By: #### 5 7021-8 ####[facility] [id number] [place] [address] [place] Differential cell count method Nom (Bld) Auto [facility] Comment on above: Order Comment: Speci men Type: BLOOD SPECIMENOrdering Facility: [facility] Address: [address] [place] [address] Performed By: #### 5 7021-8 ####[facility] [id number] [place] [address] [place] Eosinophils (Bld) [#/Vol] 0.11 10*3/uL Normal <0.46 [facility] Comment on above: Order Comment: Speci men Type: BLOOD SPECIMENOrdering Facility: [facility] Address: [address] [place] [address] Performed By: #### 5 7021-8 ####[facility] [id number] [place] [address] [place] Eosinophils/100 WBC (Bld) 1.7 % [facility] Comment on above: Order Comment: Speci men Type: BLOOD SPECIMENOrdering Facility: [facility] Address: [address] [place] [address] Performed By: #### 5 7021-8 ####[facility] [id number] [place] [address] [place] Erythrocyte distribution width (RBC) [Ratio] 13.4 % Normal 11.5-15.0 [facility] Comment on above: Order Comment: Speci men Type: BLOOD SPECIMENOrdering Facility: [facility] Address: [address] [place] [address] Performed By: #### 5 7021-8 ####[facility] ERNCLIA [id number] [place] [address] [place] Hematocrit (Bld) [Volume fraction] 46.3 % High 36.0-46.0 [facility] Comment on above: Order Comment: Speci men Type: BLOOD SPECIMENOrdering Facility: [facility] Address: [address] [place] [address] Performed By: #### 5 7021-8 ####[facility] [id number] [place] [address] [place] Hemoglobin (Bld) [Mass/Vol] 15.2 g/dL Normal 11.5-15.5 [facility] Comment on above: Order Comment: Speci men Type: BLOOD SPECIMENOrdering Facility: [facility] Address: [address] [place] [address] Performed By: #### 5 7021-8 ####[facility] ERNCLIA [id number] [place] [address] [place] Immature granulocytes (Bld) [#/Vol] 0.03 10*3/uL Normal <0.10 [facility] Comment on above: Order Comment: Speci men Type: BLOOD SPECIMENOrdering Facility: [facility] Address: [address] [place] [address] Performed By: #### 5 7021-8 ####[facility] [id number] [place] [address] [place] Immature granulocytes/100 WBC (Bld) 0.5 % [facility] Comment on above: Order Comment: Speci men Type: BLOOD SPECIMENOrdering Facility: [facility] Address: [address] [place] [address] Performed By: #### 5 7021-8 ####[facility] [id number] [place] [address] [place] Lymphocytes (Bld) [#/Vol] 2.05 10*3/uL Normal 1.00-4.00 [facility] Comment on above: Order Comment: Speci men Type: BLOOD SPECIMENOrdering Facility: [facility] Address: [address] [place] [address] Performed By: #### 5 7021-8 ####[facility] [id number] [place] [address] [place] Lymphocytes/100 WBC (Bld) 31.1 % [facility] Comment on above: Order Comment: Speci men Type: BLOOD SPECIMENOrdering Facility: [facility] Address: [address] [place] [address] Performed By: #### 5 7021-8 ####[facility] [id number] [place] [address] [place] MCH (RBC) [Entitic mass] 28.5 pg Normal 26.0-34.0 [facility] Comment on above: Order Comment: Speci men Type: BLOOD SPECIMENOrdering Facility: [facility] Address: [address] [place] [address] Performed By: #### 5 7021-8 ####[facility]NC[facility] [id number] [place] [address] [place] MCHC (RBC) [Mass/Vol] 32.8 g/dL Normal 30.5-36.0 [facility] Comment on above: Order Comment: Speci men Type: BLOOD SPECIMENOrdering Facility: [facility] Address: [address] [place] [address] Performed By: #### 5 7021-8 ####[facility] [id number] [place] [address] [place] MCV (RBC) [Entitic vol] 86.7 fL Normal 80.0-100.0 [facility] Comment on above: Order Comment: Speci men Type: BLOOD SPECIMENOrdering Facility: [facility] Address: [address] [place] [address] Performed By: #### 5 7021-8 ####[facility]NC[facility] [id number] [place] [address] [place] Monocytes (Bld) [#/Vol] 0.50 10*3/uL Normal <0.87 [facility] Comment on above: Order Comment: Speci men Type: BLOOD SPECIMENOrdering Facility: [facility] Address: [address] [place], [place] [id number] Performed By: #### 5 7021-8 ####[facility] [id number] [place] [address] [place] Monocytes/100 WBC (Bld) 7.6 % [facility] Comment on above: Order Comment: Speci men Type: BLOOD SPECIMENOrdering Facility: [facility] Address: [address] [place] [address] Performed By: #### 5 7021-8 ####[facility] [id number] [place] [address] [place] Neutrophils (Bld) [#/Vol] 3.90 10*3/uL Normal 1.45-7.50 [facility] Comment on above: Order Comment: Speci men Type: BLOOD SPECIMENOrdering Facility: [facility] Address: [address] [place] [address] Performed By: #### 5 7021-8 ####[facility] MILLWNCL[facility] [id number] [place] [address] [place] Neutrophils/100 WBC (Bld) 58.9 % [facility] Comment on above: Order Comment: Speci men Type: BLOOD SPECIMENOrdering Facility: [facility] Address: [address] [place] [address] Performed By: #### 5 7021-8 ####[facility]ITALWNCL[facility] [id number] [place] [address] [place] Nucleated RBC (Bld) [#/Vol] 10*3/uL Normal <0.01 [facility] Comment on above: Order Comment: Speci men Type: BLOOD SPECIMENOrdering Facility: [facility] Address: [address] [place] [address] Performed By: #### 5 7021-8 ####[facility] [id number] [place] [address] [place] Nucleated RBC/100 WBC (Bld) [Ratio] 0.0 /100 WBC [facility] Comment on above: Order Comment: Speci men Type: BLOOD SPECIMENOrdering Facility: [facility] Address: [address] [place] [address] Performed By: #### 5 7021-8 ####[facility]ILLWNCL[facility] [id number] [place] [address] [place] Platelet mean volume (Bld) [Entitic vol] 10.9 fL Normal 9.0-12.7 [facility] Comment on above: Order Comment: Speci men Type: BLOOD SPECIMENOrdering Facility: [facility] Address: [address] [place] [address] Performed By: #### 5 7021-8 ####[facility] [id number] [place] [address] [place] Platelets (Bld) [#/Vol] 232 10*3/uL Normal 150-400 [facility] Comment on above: Order Comment: Speci men Type: BLOOD SPECIMENOrdering Facility: [facility] Address: [address] [place] [address] Performed By: #### 5 7021-8 ####[facility] ERNCLIA [id number] [place] [address] [place] RBC (Bld) [#/Vol] 5.34 10*6/uL High 3.90-5.20 [facility] Comment on above: Order Comment: Speci men Type: BLOOD SPECIMENOrdering Facility: [facility] Address: [address] [place] [address] Performed By: #### 5 7021-8 ####[facility] [id number] [place] [address] [place] WBC (Bld) [#/Vol] 6.60 10*3/uL Normal 3.70-11.00 [facility] Comment on above: Order Comment: Speci men Type: BLOOD SPECIMENOrdering Facility: [facility] Address: [address] [place] [address] Performed By: #### 5 7021-8 ####[facility] ERNCLIA [id number] [place] [address] [place] Comprehensive metabolic 2000 panelOrdered By: Chayo Huerta on 08-28-2024 Albumin [Mass/Vol] 4.5 g/dL 3.9 - 4.9 g/dL [facility] ALP [Catalytic activity/Vol] 78 U/L 34 - 123 U/L [facility] ALT [Catalytic activity/Vol] 31 U/L 7 - 38 U/L [facility] Anion gap [Moles/Vol] 9 mmol/L 8 - 15 mmol/L [facility] AST [Catalytic activity/Vol] 13 U/L 13 - 35 U/L [facility] Bilirubin [Mass/Vol] 0.3 mg/dL 0.2 - 1 .3 mg/dL [facility] Calcium [Mass/Vol] 10.1 mg/dL 8.5 - 10. 2 mg/dL [facility] Chloride [Moles/Vol] 105 mmol/L 98 - 10 7 mmol/L [facility] CO2 [Moles/Vol] 27 mmol/L 22 - 30 mmol/L [facility] Creatinine [Mass/Vol] 0.83 mg/dL 0.58 - 0.96 mg/dL [facility] GFR/1.73 sq M.predicted among non-blacks MDRD (S/P/Bld) [Vol rate/Area] 84 mL/min/{1.73_m2} - PINF [facility] Comment on above: Estimated Glomerular Filtration Rate (eGFR) is calculated using the 2020 CKD-EPI creatinine equation. This equation utilizes serum creatinine, sex, and age as parameters. The creatinine assay has traceable calibration to isotope dilution-mass spectrometry. Refer to KDIGO guidelines for clinical interpretation. In patients with unstable renal function, e.g. those with acute kidney injury, the eGFR may not accurately reflect actual GFR. Glucose [Mass/Vol] 152 mg/dL High 74 - 99 mg/dL [facility] Comment on above: The [place] Diabete s Association (ADA) provides guidance for cutoff values for fasting glucose and random glucose. The ADA defines fasting as no caloric intake for at least 8 hours. Fasting plasma glucose results between 100 to 125 mg/dL indicate increased risk for diabetes (prediabetes). Fasting plasma glucose results greater than or equal to 126 mg/dL meet the criteria for diagnosis of diabetes. In the absence of unequivocal hyperglycemia, results should be confirmed by repeat testing. In a patient with classic symptoms of hyperglycemia or hyperglycemic crisis, random plasma glucose results greater than or equal to 200 mg/dL meet the criteria for diagnosis of diabetes. Reference: Standards of Medical Care in Diabetes 2016, [place] Diabetes Association. Diabetes Care. 2016.39(Suppl 1). Interpretation and review of laboratory results Abnormal [facility] Potassium [Moles/Vol] 4.7 mmol/L 3.7 - 5.1 mmol/L [facility] Protein [Mass/Vol] 7.4 g/dL 6.3 - 8.0 g/dL [facility] Sodium [Moles/Vol] 141 mmol/L 136 - 144 mmol/L [facility] Urea nitrogen [Mass/Vol] 14 mg/dL 7 - 21 mg/dL [facility] Comprehensive metabolic 2000 panelon 08-28-2024 Albumin [Mass/Vol] 4.5 g/dL Normal 3.9-4.9 [facility] Comment on above: Order Comment: Helen garcia Type: BLOOD SPECIMENOrdering Facility: [facility] Address: [address] [place] [address] Performed By: #### 2 4323-8 ####[facility] [id number] [place] [address] [place] ALP [Catalytic activity/Vol] 78 U/L Normal 34-123 [facility] Comment on above: Order Comment: Helen garcia Type: BLOOD SPECIMENOrdering Facility: [facility] Address: [address] [place] [address] Performed By: #### 2 4323-8 ####[facility]CL[facility] [id number] [place] [address] [place] ALT [Catalytic activity/Vol] 31 U/L Normal 7-38 [facility] Comment on above: Order Comment: Helen garcia Type: BLOOD SPECIMENOrdering Facility: [facility] Address: [address] [place] [address] Performed By: #### 2 4323-8 ####[facility] [id number] [place] [address] [place] Anion gap [Moles/Vol] 9 mmol/L Normal 8-15 [facility] Comment on above: Order Comment: Speci men Type: BLOOD SPECIMENOrdering Facility: [facility] Address: [address] [place] [address] Performed By: #### 2 4323-8 ####[facility]CL[facility] [id number] [place] [address] [place] AST [Catalytic activity/Vol] 13 U/L Normal 13-35 [facility] Comment on above: Order Comment: Speci men Type: BLOOD SPECIMENOrdering Facility: [facility] Address: [address] [place] [address] Performed By: #### 2 4323-8 ####[facility] [id number] [place] [address] [place] Bilirubin [Mass/Vol] 0.3 mg/dL Normal 0.2-1.3 [facility] Comment on above: Order Comment: Speci men Type: BLOOD SPECIMENOrdering Facility: [facility] Address: [address] [place] [address] Performed By: #### 2 4323-8 ####[facility] ERNCLIA [id number] [place] [address] [place] Calcium [Mass/Vol] 10.1 mg/dL Normal 8.5-10.2 [facility] Comment on above: Order Comment: Speci men Type: BLOOD SPECIMENOrdering Facility: [facility] Address: [address] [place] [address] Performed By: #### 2 4323-8 ####[facility] ERNCLIA [id number] [place] [address] [place] Chloride [Moles/Vol] 105 mmol/L Normal 98-107 [facility] Comment on above: Order Comment: Speci men Type: BLOOD SPECIMENOrdering Facility: [facility] Address: [address] [place] [address] Performed By: #### 2 4323-8 ####[facility] [id number] [place] [address] [place] CO2 [Moles/Vol] 27 mmol/L Normal 22-30 [facility] Comment on above: Order Comment: Speci men Type: BLOOD SPECIMENOrdering Facility: [facility] Address: [address] [place] [address] Performed By: #### 2 4323-8 ####[facility] [id number] [place] [address] [place] Creatinine [Mass/Vol] 0.83 mg/dL Normal 0.58-0.96 [facility] Comment on above: Order Comment: Speci men Type: BLOOD SPECIMENOrdering Facility: [facility] Address: [address] [place] [address] Performed By: #### 2 4323-8 ####[facility] ERNCA [id number] [address] [place] Creatinine and Glomerular filtration rate.predicted panel (S/P/Bld) 84 mL/min/1.73m??? Normal >=60 [facility] Comment on above: Order Comment: Speci men Type: BLOOD SPECIMENOrdering Facility: [facility] Address: [address] [place] [address] Result Comment: Charline mated Glomerular Filtration Rate (eGFR) is calculated using the 2020 CKD-EPI creatinine equation. This equation utilizes serum creatinine, sex, and age as parameters. The creatinine assay has traceable calibration to isotope dilution-mass spectrometry. Refer to KDIGO guidelines for clinical interpretation. In patients with unstable renal function, e.g. those with acute kidney injury, the eGFR may not accurately reflect actual GFR. Performed By: #### 2 4323-8 ####[facility]ITAL[facility] [id number] [place] [id number] [place] Glucose [Mass/Vol] 152 mg/dL High 74-99 [facility] Comment on above: Order Comment: Speci men Type: BLOOD SPECIMENOrdering Facility: [facility] Address: [address] [place] [address] Result Comment: The [place] Diabetes Association (ADA) provides guidance for cutoff values for fasting glucose and random glucose. The ADA defines fasting as no caloric intake for at least 8 hours. Fasting plasma glucose results between 100 to 125 mg/dL indicate increased risk for diabetes (prediabetes). Fasting plasma glucose results greater than or equal to 126 mg/dL meet the criteria for diagnosis of diabetes. In the absence of unequivocal hyperglycemia, results should be confirmed by repeat testing. In a patient with classic symptoms of hyperglycemia or hyperglycemic crisis, random plasma glucose results greater than or equal to 200 mg/dL meet the criteria for diagnosis of diabetes. Reference: Standards of Medical Care in Diabetes 2016, [place] Diabetes Association. Diabetes Care. 2016.39(Suppl 1). Performed By: #### 2 4323-8 ####[facility] BERNARDO MILLTOWNCLIA [id number] [place] [address] [place] Potassium [Moles/Vol] 4.7 mmol/L Normal 3.7-5.1 [facility] Comment on above: Order Comment: Speci men Type: BLOOD SPECIMENOrdering Facility: [facility] Address: [address] [place] [address] Performed By: #### 2 4323-8 ####[facility] MILLTOWNCLIA [id number] [place] [address] [place] Protein [Mass/Vol] 7.4 g/dL Normal 6.3-8.0 [facility] Comment on above: Order Comment: Speci men Type: BLOOD SPECIMENOrdering Facility: [facility] Address: [address] [place] [address] Performed By: #### 2 4323-8 ####[facility] MILLTOWNCLIA [id number] [place] [address] [place] [facility] [place] Sodium [Moles/Vol] 141 mmol/L Normal 136-144 [facility] Comment on above: Order Comment: Speci men Type: BLOOD SPECIMENOrdering Facility: [facility] Address: [address] [place] [address] Performed By: #### 2 4323-8 ####[facility] ERNCLI [id number] [address] [place] Urea nitrogen [Mass/Vol] 14 mg/dL Normal 7-21 [facility] Comment on above: Order Comment: Speci men Type: BLOOD SPECIMENOrdering Facility: [facility] Address: [address] [place] [address] Performed By: #### 2 4323-8 ####[facility] ERNCLI [id number] [address] OF [facility] HISTORY PHYSICALon HISTORY PHYSICAL HNO ID: [id number] Author: EFRAIN HODGES APRN.INSPECTOR PRECISION ASSEMBLY Service: ? Author Type: Nurse Practitioner Type: H&P Filed: 08/28/2024 13:41 Note Text: [facility] HISTORY AND PHYSICAL EXAMINATION SERVICE DATE: 08/28/2024 SERVICE TIME: 1:40 PM PRIMARY CARE PHYSICIAN: Chikis Montana MD Assessment Patient has the following medical conditions which may affect holland-operative course: Essential hypertension Assessment: controlled on rx Last 14 BP Last 14 Encounter BP Readings: Date: BP: 08/28/2024 118/84 08/22/2024 114/80 07/16/2024 139/71 06/21/2024 118/82 06/10/2024 120/82 06/03/2024 146/86 08/28/2023 120/82 06/08/2023 120/80 03/28/2016 126/82 03/22/2016 122/84 02/16/2016 134/88 01/14/2016 114/82 12/15/2015 128/88 Mixed hyperlipidemia Assessment: on rx Palpitations Assessment: hx, controlled on rx Prediabetes Assessment: controlled on oral agent, new A1c pending BMI 39.0-39.9,adult Assessment: Body mass index is 39.14 kg/m?. Irritable bowel syndrome with diarrhea Assessment: controlled on rx SCC (squamous cell carcinoma) Assessment: s/p excision Harper Activity Status Index: METS: Climb a flight of stairs or walk up a hill (5.50 METs) DASI Score: 5.5 Patient denies any chest pain or undue shortness of breath with the above physical activity. Clinical Frailty Scale: 3. Well, with treated comorbid disease STOP-Bang Score: Has or is being treated for high blood pressure Patient over 50 years old Has a large neck Denies snoring loudly Denies feeling tired, fatigued, or sleepy during the daytime Has not been observed to stop breathing or choking/gasping during sleep BMI less than or equal to 35 kg/m2 Non-male patient STOP-Bang Score: 3 [id number] Score: Age: <65 Sex: female CHF history: No Hypertension history: Yes Stroke/TIA/thromboemboli sm history: No Vascular disease history: No Diabetes history: No [id number] Score: 2 ARISCAT Score: Age: 51-80 Preoperative SpO2: >=96% Respiratory infection in the last month: No Preoperative anemia: No Surgical incision: peripheral Duration of surgery: 2-3 hrs Emergency procedure: No ARISCAT Score: 19 ANESTHESIA FINDINGS: Intubation History: No history of difficult intubation Significant Anesthesia Considerations: none Airway History: No history of difficult airway I - PHYSICAL EVALUATION AIRWAY Patient intubated: No. Tracheostomy tube not present Mallampati: III. TM distance: >3 FB. Neck ROM: full ROM without neurological symptoms. Mouth opening: adequate. Short neck: yes. Thick neck: yes Grijalva present: no Lip Bite Test: I Microretrognathia/Micron agthia/Recessed Chin: No DENTAL Dental findings: teeth intact. Additional comments: Implant/back. II - ANESTHESIA PLAN Anesthetic Plan: other Anesthetic plan additional comments: *PACC/TCI - anesthesia choice. Beta [place] Monitoring Plan Post Procedure Analgesic Plan Prepared for Surgery: optimally prepared for surgery, pending [see comment]. labs CONSULTS: Patient does not require consults for optimization at this time Planned Anesthetic: other anesthesia choice The Following Tests/Procedures Have Been Initiated: Orders Placed This Encounter >CBC + AUTO DIFF Standing Status: Future Number of Occurrences: 1 Standing Expiration Date: 11/27/2024 >CMP Standing Status: Future Number of Occurrences: 1 Standing Expiration Date: 11/27/2024 >HGB A1c (Today or soon) Standing Status: Future Number of Occurrences: 1 Standing Expiration Date: 11/27/2024 REASON FOR VISIT: Ernestina Wade is a 54 year old female who is scheduled for Procedure(s): ARTHROSCOPY SHOULDER ROTATOR CUFF (Left) at the request of Dr. Domonique Hoang for consultation. My final recommendation will be communicated back to the requesting physician by way of shared medical record or letter. Subjective The patient has the following: COVID-19 Immunization Status Overdue - Covid-19 Vaccine () Overdue since 05/12/2024 09/16/2021 Imm Admin: COVID-19 vaccine ([employer]) 11/20/2020 Imm Admin: COVID-19 vaccine ([employer]) CHIEF COMPLAINT: Pre-op exam HPI: Ernestina Wade is a 54 year old seen for PAC due to scheduled above surgery because of a left rotator cuff tear. 05/31/2024 Dr. Hoang Chief Complaint Ernestina Wade is a 54 year old female who presents today for follow up office visit. Patient presents with: Left Shoulder - Follow Up: Wants to go forward with surgery option and the details History of Present Illness PAIN EVALUATION 05/31/2024 0944 Pain Level: 1 Pain Location: Shoulder-Left Description: Aching;Sharp;Shooting;So re Duration Amount of Time: 24 Duration Units: Hours Frequency: Continuous Intervention/Comfort measure: Medication;Reposition;Co ld;Positioning Comments: Pain depends on what im doing. (more content not included)... Normal [facility] HbA1c (Bld)on 08-28-2024 Average glucose Estimated from glycated hemoglobin (Bld) [Mass/Vol] 148 mg/dL Normal [facility] Comment on above: Order Comment: Speci men Type: BLOOD SPECIMENOrdering Facility: [facility] Address: [address] [place], [place] [id number] Result Comment: eAG: (Estimated average glucose) is a calculated value from HgbA1c and is medical sales representative of the average blood glucose level in the last 2-3 month period. Performed By: #### 5 5454-3 ####[facility] LABCLIA [id number] [place] [address] [place] HbA1c (Bld) [Mass fraction] 6.8 % High 4.3-5.6 [facility] Comment on above: Order Comment: Speci men Type: BLOOD SPECIMENOrdering Facility: [facility] Address: [address] [place] [address] Result Comment: [place] Diabetes Association guidelines indicate that patients with HgbA1c in the range 5.7-6.4% are at increased risk for development of diabetes, and intervention by lifestyle modification may be beneficial. HgbA1c greater or equal to 6.5% is considered diagnostic of diabetes. 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 Ernestina Wade is a 54 year old female who presents for pelvic exam. HPI: Had annual exam several months ago. Did not do pelvic exam at that time per patient request given GI symptoms and illness. She offers no new complaints today. 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 Family history of colon cancer 02/16/2016 Lateral epicondylitis of both elbows 02/16/2016 Medial epicondylitis of right elbow 02/16/2016 Menorrhagia submucous fibroids Non morbid obesity due to excess calories 02/16/2016 Prediabetes 02/16/2016 Skin cancer PAST SURGICAL HISTORY Procedure Laterality Date COLONOSCOPY FLX DX W/COLLJ SPEC WHEN PFRMD 11/18/2010 Colonoscopy COLONOSCOPY SCREENING 07/03/2020 repeat 5 years recommended LAPAROSCOPY SURG CHOLECYSTECTOMY 09/11/2000 Cholecystectomy, lap PAST SURGICAL HISTORY OF Right 2023 right calf skin cancer removal PAST SURGICAL HISTORY OF 2023 Skin cancer removed from right calf REVISE MEDIAN N/CARPAL TUNNEL SURG Left 07/16/2024 SALPINGECTOMY 03/06/2017 SHOULDER SURGERY HX Right 02/27/2019 TOTAL ABDOM HYSTERECTOMY 03/06/2017 TUBAL LIGATION HX 09/11/2004 FAMILY HISTORY Problem Relation Age of Onset None Mother GI Father diverticulitis, recurrent Hypertension Father Diabetes Father Colon Cancer Father other (stomach cancer) Father No Known Problems Brother No Known Problems Brother Cancer Maternal Grandmother lung cancer Alzheimer's Disease Paternal Grandmother Colon Cancer Paternal Grandfather Dementia Maternal Aunt Social History Tobacco Use Smoking status: Never Smokeless tobacco: Never Vaping Use Vaping status: Never Used Substance Use Topics Alcohol use: Yes Comment: rare Drug use: No Current Outpatient Medications Medication Sig ezetimibe (ZETIA) 10 mg tablet Take 1 tablet by mouth every afternoon. dilTIAZem CD (CARDIZEM CD, CARTIA XT) 120 mg 24 hr capsule Take 1 capsule by mouth once daily. JARDIANCE 10 mg tablet URSODIOL ORAL Taking 300 mg daily losartan (COZAAR) 50 mg tablet Take 1 tablet by mouth every afternoon. ergocalciferol, vitamin D2, (VITAMIN D2 ORAL) Take 1,000 Units by mouth once daily. OZEMPIC 0.25 mg or 0.5 mg (2 mg/3 mL) pen 0.5 MG (0.8 ML) SUBCUTANEOUSLY EVERY WEEK (Patient not taking: Reported on 06/21/2024) No current facility-administered medications for this visit. Allergies As of Date: 08/22/2024 Allergen Noted Reaction REGLAN [METOCLOPRAMIDE HCL] 12/15/2015 Mental Status Change Fully Assessed 08/22/2024 REVIEW OF SYSTEMS Abdomen: No abdominal pain, nausea, vomiting, diarrhea, or constipation. Expanded ROS: N/A Allergies and current medication updated:Yes SENSITIVE EXAM: The sensitive examination was discussed with the Patient or Patient's Authorized Review Manager. As applicable, any other physician, advance practice provider, medical student, or other health professional student that will be observing or involved in the sensitive examination for educational or training purposes was discussed with the Patient or Authorized Review Manager. The Patient or Authorized Review Manager has agreed to proceed with the sensitive examination. (Sensitive examination includes inspection and/or palpation of the breasts, pelvis, prostate and anorectal regions). EXAM: BP 114/80 Wt 227 lb 9.6 oz (103.2kg) LMP 03/21/2016 GENERAL: pleasant, female in no apparent distress HEENT: Normocephalic and atraumatic NECK: full range of motion DERMATOLOGY: Normal and without lesions BREAST: deferred CHEST: Normal inspiratory effort ABDOMEN: Non distended PELVIC: external genitalia normal, normal Bartholin's glands, urethra, [place]'s glands, no vulvar lesions, good vaginal support, physiologic discharge present, normal appearing perineal body and perianal region BIMANUAL: no adnexal masses and non-tender NEURO: exam grossly non-focal EXTREMITIES: normal ASSESSMENT AND PLAN: Assessment AND Plan History of hysterectomy Pelvic exam normal today. Scheduled for mammogram. RTO annual exam and PRN. Yury Steel DO Medical Decision Making: Problems: Low: Stable chronic illness Medical Decision Making Level: 2 - Straightforward Allergies As of Date: 08/22/2024 N (more content not included)... Normal [facility] [place] 08-20-2024 CNPN Telephone (OBGYWM) -------- ERNESTINA WADE ([id number]) 1970 F Date Time Provider Department 08/20/24 YURY STEEL OBGYWM During your visit today, we recorded the following information about you: Ten Shepherd RN 08/20/2024 4:40 PM Signed Screening mammogram (completed 08/16/23), ABD limited w/elastography (completed on 03/06/24), AND MRI of left shoulder (completed 04/10/24) received from [facility] and placed in SW inbox for review. Ten Shepherd RN Allergies As of Date: 08/20/2024 Noted Allergy Reaction REGLAN (METOCLOPRAMIDE HCL) 12/15/2015 1 - Mental Status Change Date Reviewed: 07/29/2024 Reviewed by: Avis Carney MA - Fully Assessed Prescriptions as of 08/20/2024 - ezetimibe (ZETIA) 10 mg tablet Take 1 tablet by mouth every afternoon. - dilTIAZem CD (CARDIZEM CD, CARTIA XT) 120 mg 24 hr capsule Take 1 capsule by mouth once daily. - JARDIANCE 10 mg tablet - OZEMPIC 0.25 mg or 0.5 mg (2 mg/3 mL) pen 0.5 MG (0.8 ML) SUBCUTANEOUSLY EVERY WEEK - URSODIOL ORAL Taking 300 mg daily - losartan (COZAAR) 50 mg tablet Take 1 tablet by mouth every afternoon. - ergocalciferol, vitamin D2, (VITAMIN D2 ORAL) Take 1,000 Units by mouth once daily. Problem List As Of Date 08/20/2024 Noted Resolved Essential hypertension [I10] 02/16/2016 Non morbid obesity due to excess calories [E66.*02/16/2016 Lateral epicondylitis of both elbows [M77.11, M*02/16/2016 Medial epicondylitis of right elbow [M77.01] 02/16/2016 Family history of colon cancer [Z80.0] 02/16/2016 Prediabetes [R73.03] 02/16/2016 Mixed hyperlipidemia [E78.2] 06/25/2024 Encounter Status:Closed by TEN SHEPHERD on 08/20/24 Normal [facility] Gastroenterology Visit Repor ton 08-20-2024 Gastroenterology Visit Report [facility] [place] [address] OFFICE VISIT Date of Service: 08/20/24 MR#: [id number] Acct: [id number] Name: ERNESTINA WADE Rep #: [id number] 13 : 1970 Provider: Dr. Aniceto payan MD Age/Sex: 54/F Location: [facility] Status: Signed Intake Vital Signs 02/20/24 08:35 07/18/24 14:21 08/20/24 10:03 Height 5 ft 4 in 5 ft 4 in 5 ft 4 in Weight: 227 lb 6 oz 231 lb BMI 39.0 39.6 BP 120/77 148/89 H Blood Pressure Location Rt brachial Lt brachial Position Sitting Pulse 78 69 Pulse Source Monitor Pulse Oximetry (%) 96 96 Oxygen Delivery Method room air room air Intake Visit Reasons: 6 M FU Allergies metoclopramide (From Reglan) Adverse Reaction (Verified 08/20/24 10:02) [facility] Medications ???Medication ???Instructions ???Recorded ???Confirmed ???Type diltiazem HCl 120 mg 120 mg PO DAILY 05/28/21 08/20/24 History capsule,extended release 24 hr cholecalciferol (vitamin D3) 25 25 mcg PO DAILY 11/18/21 08/20/24 History mcg (1,000 unit) tablet (Vitamin D3) losartan 50 mg tablet 50 mg PO DAILY 06/21/23 08/20/24 History COVID-19 antigen test (Advin #1 ea 12/25/23 08/20/24 Rx COVID-19 Ag Home Test kit) ezetimibe 10 mg tablet 10 mg PO DAILY #90 tabs 05/03/24 08/20/24 Rx ursodiol 300 mg capsule 300 mg PO DAILY #90 caps 05/03/24 08/20/24 Rx empagliflozin 25 mg tablet 25 mg PO QAM #90 tabs 07/18/24 08/20/24 Rx (Jardiance) colestipol 1 gram tablet (Colestid) 1 g PO BID 30 days #60 tabs 08/20/24 08/20/24 Rx PFSH Medical History Anxiety Diabetes Arthritis Leg cramps Wears contact lenses Wears glasses Post-menopausal Diabetes Arthritis Shortness of breath on exertion History of ulceration Non-smoker History of pain when walking History of edema History of echocardiogram Hypertension History of irregular heartbeat Obesity Diarrhea Lab test negative for COVID-19 virus Difficulty balancing Diarrhea Fatigue Shoulder pain Family history of colon cancer Polyuria Cough Vertigo Dizziness Menorrhagia Bronchitis Hypertension Fear of flying Type 2 diabetes mellitus Surgical History History of esophagogastroduodenosco py (EGD) History of esophagogastroduodenosco py (EGD) History of colonoscopy ( 2014) S/P right rotator cuff repair History of tubal ligation History of hysterectomy History of cholecystectomy Family History Father Hypertension Heart disease Colon cancer Diabetes Cancer stomach Grandmother Heart disease Cancer Lung Grandfather Colon cancer Uncle Colon cancer great uncle Aunt Diabetes Social History Smoking Status: Never smoker alcohol intake: current alcohol intake frequency: holidays/special occasions only substance use type: does not use seatbelt use: always do you feel safe at home: Yes HPI HPI Details: ERNESTINA WADE, is a 54 F who presents to the office today for follow up. *BGI established 07.07.21 for abdominal pain, bloating, diarrhea and obesity. Father was recently diagnosed with stomach cancer. History of cholecystectomy. CT abd/pel 08.02.21 fatty infiltration of the liver. US abd and elastography 08.10.21 liver measuring 21cm with liver stiffness measuring 7.8 (F2). Actos and ursodiol. OV 08.20.21 Continues to have problems with abdominal pain, diarrhea and bloating which has gotten better regarding frequency. Admits to a poor diet thought eating less portions lately which she feels may be contributing. She has been having increased stress regarding her father being placed in hospice care. In recent months she has been having some issues with heartburn that may be related to stress. Has not started ursodiol or actos because she had some questions regarding side effects. Start weight loss Phentermine (this was never filled r/t BP abnormality). OV 1. with reduced loose stool frequency though continues to have good and bad days. Instituted a fiber gummie which she finds helpful in firming stool. Loose stools may also be stress triggered. EGD 11.22.21 LA Grade A reflux esophagitis; non-bleeding gastric ulcer without stigmata of bleeding; duodenitis. Biopsy found prepyloric ulcer with inflammation and early granulation, acute duodenitis, esophageal inflammation without metaplasia. H.Pylori negative. OV 12.27.21 feels she is doing well overall. Does not wish to pursue phentermine at this time. Refer to corporate responsibility officer. US RUQ and elastography .11.02 liver measurement 19.9cm with fatty infiltration stiffness measures 8.7kPa F2. OV 12.26.22 diarrh (more content not included)... Normal [facility] CNOVon 07-29-2024 CNOV Office Visit (ORNA ) -------- ERNESTINA WADE ([id number]) 1970 F Date Time Provider Department 07/29/24 2:00 PM ANTHONY STONE During your visit today, we recorded the following information about you: Anthony Stone PA-C 07/29/2024 2:49 PM Signed POST OP Ms. Wade presents today for her 10-14 day visit from: left CTR on 07/16/[address] Hoang. Patient also had right carpal tunnel injection at that time. Post Op and Pain of the Left Hand History: PAIN EVALUATION 07/29/2024 1218 Pain Level: 2 Pain Location: Hand-Left Description: Sore Duration Amount of Time: 13 07/16/24 Duration Units: Days Frequency: Intermittent She is doing well postoperatively. Patients rates her condition as improving. Patient states their pre-operative left hand numbness and tingling is resolved. Reports right hand numbness has returned, tingling resolved. The patient denies warmth, discharge, drainage, fevers, chills, sweats. She reports compliance with wound care. The patient had a mechanical fall onto her left out stretched hand 6 days ago. Does not want x-rays. She reports no change in past medical AND surgical history, medications, allergies, social history, family history and review of systems since last visit, with the exception of the following: None Review of Systems All other systems reviewed and are negative. Radiographs: Not applicable Physical Examination: Left hand: Appropriate postop appearance No evidence of erythema, warmth, discharge or drainage Incision clean/dry/intact Sutures intact No tenderness to palpation about the hand, distal radius or ulna WF/WE and pronation/supination WNL without pain Positive median, ulna, and radial nerve function Positive distal pulses Able to make fist and extend all fingers Right hand: NVI PROCEDURE: Sutures removed from left hand and steri strips applied. This was well-tolerated without complication. Assessment and Plan: 54 year old female 2 weeks S/P left carpal tunnel release Gradually advance activities as tolerated. Discussed that numbness can take several weeks to months after surgery to completely resolve. Post op care discussed, all questions answered Follow up PRN Dave Stone PA-C Orthopaedic Surgery Allergies As of Date: 07/29/2024 Noted Allergy Reaction REGLAN (METOCLOPRAMIDE HCL) 12/15/2015 1 - Mental Status Change Date Reviewed: 07/29/2024 Reviewed by: Avis Carney MA - Fully Assessed Reason for Visit: Post Op [174] Pain [78] Primary Visit Diagnosis:S/P carpal tunnel release [Z98.890] Prescriptions as of 07/29/2024 - ezetimibe (ZETIA) 10 mg tablet Take 1 tablet by mouth every afternoon. - dilTIAZem CD (CARDIZEM CD, CARTIA XT) 120 mg 24 hr capsule Take 1 capsule by mouth once daily. - JARDIANCE 10 mg tablet - OZEMPIC 0.25 mg or 0.5 mg (2 mg/3 mL) pen 0.5 MG (0.8 ML) SUBCUTANEOUSLY EVERY WEEK - URSODIOL ORAL Taking 300 mg daily - losartan (COZAAR) 50 mg tablet Take 1 tablet by mouth every afternoon. - ergocalciferol, vitamin D2, (VITAMIN D2 ORAL) Take 1,000 Units by mouth once daily. Problem List As Of Date 07/29/2024 Noted Resolved Essential hypertension [I10] 02/16/2016 Non morbid obesity due to excess calories [E66.*02/16/2016 Lateral epicondylitis of both elbows [M77.11, M*02/16/2016 Medial epicondylitis of right elbow [M77.01] 02/16/2016 Family history of colon cancer [Z80.0] 02/16/2016 Prediabetes [R73.03] 02/16/2016 Mixed hyperlipidemia [E78.2] 06/25/2024 Encounter Status:Closed by ANTHONY STONE on 07/29/24 [facility] Endocrinology Visit Reporton 07-18-2024 Endocrinology Visit Report [facility] [address] [place], [place] [address] OFFICE VISIT Date of Service: 07/18/24 MR#: [id number] Acct: [id number] Name: ERNESTINA WADE Rep #: [id number] : 1970 Provider: PAMELA saunders Age/Sex: 54/F Location: [facility] [place] Status: Signed Intake Vital Signs 12/25/23 08:16 02/20/24 08:35 07/18/24 14:21 Height 5 ft 4 in 5 ft 4 in 5 ft 4 in Weight: 218 lb 227 lb 6 oz BMI 37.4 39.0 BP 129/84 H 120/77 Blood Pressure Location Rt brachial Rt brachial Position Sitting Sitting Pulse 71 78 Pulse Source Monitor Pulse Oximetry (%) 95 96 Oxygen Delivery Method room air room air Intake Visit Reasons: 6 M FU Chief Complaint: f/u diabetes Allergies metoclopramide (From Reglan) Adverse Reaction (Verified 02/20/24 08:31) NIGHTMARES Medications ???Medication ???Instructions ???Recorded ???Confirmed ???Type diltiazem HCl 120 mg 120 mg PO DAILY 05/28/21 07/18/24 History capsule,extended release 24 hr cholecalciferol (vitamin D3) 25 25 mcg PO DAILY 11/18/21 07/18/24 History mcg (1,000 unit) tablet (Vitamin D3) losartan 50 mg tablet 50 mg PO DAILY 06/21/23 07/18/24 History COVID-19 antigen test (Advin #1 ea 12/25/23 02/20/24 Rx COVID-19 Ag Home Test kit) ezetimibe 10 mg tablet 10 mg PO DAILY #90 tabs 05/03/24 07/18/24 Rx ursodiol 300 mg capsule 300 mg PO DAILY #90 caps 05/03/24 07/18/24 Rx empagliflozin 25 mg tablet 25 mg PO QAM #90 tabs 07/18/24 07/18/24 Rx (Jardiance) [facility] Medical History Anxiety Diabetes Arthritis Leg cramps Wears contact lenses Wears glasses Post-menopausal Diabetes Arthritis Shortness of breath on exertion History of ulceration Non-smoker History of pain when walking History of edema History of echocardiogram Hypertension History of irregular heartbeat Obesity Diarrhea Lab test negative for COVID-19 virus Difficulty balancing Diarrhea Fatigue Shoulder pain Family history of colon cancer Polyuria Cough Vertigo Dizziness Menorrhagia Bronchitis Hypertension Fear of flying Type 2 diabetes mellitus Surgical History History of esophagogastroduodenosco py (EGD) History of esophagogastroduodenosco py (EGD) History of colonoscopy ( 2014) S/P right rotator cuff repair History of tubal ligation History of hysterectomy History of cholecystectomy Family History Father Hypertension Heart disease Colon cancer Diabetes Cancer stomach Grandmother Heart disease Cancer Lung Grandfather Colon cancer Uncle Colon cancer great uncle Aunt Diabetes Social History Smoking Status: Never smoker alcohol intake: current alcohol intake frequency: holidays/special occasions only substance use type: does not use seatbelt use: always do you feel safe at home: Yes HPI HPI Chief Complaint: f/u diabetes Details: ERNESTINA WADE, is a 54 F who presents to the office today for evaluation and management of diabetes. A1C today is 6.9%, increased from 12/25/23 at 5.8%. She has gained 7 lbs. She admits that she has been off track with her diet. She had carpel tunnel surgery to left hand this week. She is going to have surgery on her left shoulder in September. Currently taking Jardiance 25 mg once daily. She was previously on Ozempic 0.5 mg qweek; however, she was having intermittent diarrhea and discontinued. She is motivated to get back on track with her diet. She has history of DAMON. She is on ezetimibe and ursodiol. BP controlled. Currently taking losartan 50 mg once daily and Diltazem 120 mg once daily. Diltiazem was initiated after she had COVID and was experiencing palpitations. She is interested in decreasing medications and specialists. Labs are up to date with PCP. Denies any acute concerns. ROS Const Constitutional: Positive for weight change; No fatigue ENT ENT: No dizziness/vertigo Cardio Cardiology: No chest pain at rest, chest pain with exertion, shortness of breath or palpitations Musc Musculoskeletal: Positive for joint pain Skin Skin: No wounds Endo Endocrine: Positive for weight change; No fatigue Exam Const General: cooperative, healthy appearing, comfortable and no acute distress Nutritional Appearance: obese HENMT Head: normal to inspection Ears: hearing grossly normal bilaterally Nose: external nose normal Face and sinus: normal facial exam Eyes General: appearance normal, both eyes and all related structures Alignment and Position: alignment normal Sclera: sclerae normal Neck Neck: normal (more content not included)... Normal [facility] ANES POSTPROC EVALon 024 ANES POSTPROC EVAL HNO ID: [id number] Author: CELESTINO LÓPEZ MD Service: Anesthesiology Author Type: Anesthesiologist Type: Anesthesia Postprocedure Evaluation Filed: 07/16/2024 13:52 Note Text: POST ANESTHESIA EVALUATION NOTE : 1970 Procedure Summary Date: 07/16/24 Room / Location: CO OR02 / CO OR Anesthesia Start: 1250 Anesthesia Stop: 1332 Procedures: DECOMPRESSION NERVE MEDIAN CARPAL TUNNEL (Left: Wrist) CARPAL TUNNEL INJECTION-RIGHT (Right: Wrist) Diagnosis: Carpal tunnel syndrome of left wrist (Carpal tunnel syndrome of left wrist [G56.02]) Surgeons: Domonique Hoang DO Responsible Provider: Celestino López MD Anesthesia Type: MAC ASA Status: 3 Anesthesia Type: MAC Last Vitals Vitals Value Taken Time BP 131/78 07/16/24 1345 Temp 36.1 ?C (97 ?F) 07/16/24 1330 Pulse 67 07/16/24 1350 Resp 14 07/16/24 1350 SpO2 92 % 07/16/24 1350 Vitals shown include unfiled device data. [facility] AN POST OP NOTE Anesthesia Observations No Documentation SIGNATURE: Celestino López MD PATIENT NAME: Ernestina Wade DATE: July 16, 2024 TIME: 1:52 PM CSN: [id number] [facility] ANES PRE-OPon 07-16-2024 ANES PRE-OP HNO ID: [id number] Author: CELESTINO LÓPEZ MD Service: Anesthesiology Author Type: Anesthesiologist Type: Anesthesia Preprocedure Evaluation Filed: 07/16/2024 12:32 Note Text: ANESTHESIOLOGY DAY OF SURGERY NOTE : 1970 Procedure Information Date/Time: 07/16/24 1316 Procedures: DECOMPRESSION NERVE MEDIAN CARPAL TUNNEL (Left: Wrist) CARPAL TUNNEL INJECTION-RIGHT (Right: Wrist) Location: [facility] OR02 / CO OR Surgeons: Domonique Hoang DO Estimated body mass index is 39.14 kg/m? as calculated from the following: Height as of this encounter: 162.6 cm (5' 4). Weight as of this encounter: 103.4 kg (228 lb). Most recent hematocrit and potassium results: No results found for this basename: HCT,HEMATOCRIT,K,POTASSI UM Relevant Problems CARDIO (+) Essential hypertension Other (+) Lateral epicondylitis of both elbows I - PHYSICAL EVALUATION AIRWAY Patient intubated: No. Tracheostomy tube not present Mallampati: II. TM distance: >3 FB. Neck ROM: full ROM without neurological symptoms. Mouth opening: adequate. DENTAL Dental findings: poor dentition. Additional exam findings: yes. CARDIOVASCULAR Rhythm: regular PULMONARY Breath sounds clear to auscultation. II - ANESTHESIA PLAN ASA Score: 3 Anesthetic Plan: MAC NPO Status: adequate Beta Shawanda Monitoring Plan Monitoring plan: standard ASA. Post Procedure Analgesic Plan Postoperative analgesic plan: parenteral or oral opioids and multimodal analgesia. Informed Consent Anesthetic risks, benefits, alternatives, personnel and consent discussed: yes. Patient / Responsible Constitution Party agrees to proceed: yes Patient / Surrogate agrees to blood products: blood products not planned Significant changes in the patient condition since the History and Physical, not otherwise documented in primary service progress note: no. BP 185/98 07/16/24 1217 Pulse 79 07/16/24 1217 Resp 18 07/16/24 1217 Temp 36.4 ?C (97.5 ?F) 07/16/24 1217 SpO2 99 % 07/16/24 1217 Facility-Administered Medications as of 07/16/2024 Medication Dose Route Frequency - acetaminophen 1,000 mg tab(s) (TYLENOL) 1,000 mg ORAL As Directed - promethazine 12.5 mg tab(s) (PHENERGAN) 12.5 mg ORAL ONCE - lidocaine (PF) 10 mg/mL (1 %) 1-2 mg injection (XYLOCAINE) 0.1-0.2 mL INTRADERMAL PRN - ceFAZolin iv piggyback 2 g in D5W (iso-osmotic) 100 mL (ANCEF) 2 g INTRAVENOUS Pre-Op Once Outpatient Medications as of 07/16/2024 Medication Sig - ezetimibe (ZETIA) 10 mg tablet Take 1 tablet by mouth every afternoon. - dilTIAZem CD (CARDIZEM CD, CARTIA XT) 120 mg 24 hr capsule Take 1 capsule by mouth once daily. - URSODIOL ORAL Taking 300 mg daily - losartan (COZAAR) 50 mg tablet Take 1 tablet by mouth every afternoon. - ergocalciferol, vitamin D2, (VITAMIN D2 ORAL) Take 1,000 Units by mouth once daily. - JARDIANCE 10 mg tablet - OZEMPIC 0.25 mg or 0.5 mg (2 mg/3 mL) pen 0.5 MG (0.8 ML) SUBCUTANEOUSLY EVERY WEEK (Patient not taking: Reported on 06/21/2024) I have interviewed and examined the patient. I have reviewed the medical record and/or the pre-anesthesia evaluation, pertinent labs, and test results. This contains updated information obtained within 48 hours of Surgery/Procedure. SIGNATURE: Celestino López MD PATIENT NAME: Ernestina Wade DATE: July 16, 2024 TIME: 12:31 PM CSN: [id number] [facility] OPERATIVE NOon 07-16-2024 OPERATIVE NO HNO ID: [id number] Author: DOMONIQUE HOANG DO Service: Orthopaedic Surgery Author Type: Physician Type: Operative Report Filed: 07/16/2024 13:29 Note Text: OPERATIVE/PROCEDURE REPORT LOG ID: [id number] SURGERY/PROCEDURE DATE: 07/16/2024 INCISION/PROCEDURE START TIME: 1:04 PM INCISION CLOSE/PROCEDURE END TIME: 1:22 PM SURGEON(S)/PROCEDURALIST (S) AND SHAFT SINKER(S): Surgeons and Role: * Domonique Hoang DO - Primary Physician Retort Or Condenser Press Operator: Tania Yanes PA-C SURGERY/PROCEDURE(S): OPERATIVE/PROCEDURE REPORT LOG ID: [id number] Surgery/Procedure Date: 07/16/2024 Incision/Procedure Start Time: 1:04 PM Incision Close/Procedure End Time: 1:22 PM Surgeon(s)/Proceduralist (s) and Retort Or Condenser Press Operator(s): Surgeons and Role: * Domonique Hoang DO - Primary Physician Retort Or Condenser Press Operator: Tania Yanes PA-C Procedure(s): OPERATION: Left carpal tunnel release, open. Right carpal tunnel injection ANESTHESIA: local. PREOPERATIVE DIAGNOSIS: Bilateral carpal tunnel syndrome. POSTOPERATIVE DIAGNOSIS: Bilateral carpal tunnel syndrome. OPERATIVE INDICATIONS: This is a pleasant 54 year old female who had worsening, numbness, and tingling. Her electrodiagnostic showed moderate carpal tunnel syndrome. She exhausted conservative management and in the office, we discussed the risks, benefits, alternatives, and potential complications involving carpal tunnel release and he wished to pursue surgical intervention. We discussed that the goal of carpal tunnel surgery is to prevent symptoms from worsening, and that surgery may not alleviate all of his/her symptoms. OPERATIVE FINDINGS: Consistent with postoperative diagnosis. OPERATIVE PROCEDURE: On July 16, 2024, the patient was clearly identified in the preoperative area and marked accordingly on the Left palm by myself. She was taken to the operative suite and placed in the supine position with an armboard on the Left. All other bony landmarks were appropriately padded in standard fashion. The arm was then sterilely prepped and draped in standard fashion after local block was achieved. An appropriate time-out was conducted and all in the room were in agreement, signed consent form was on the chart. A longitudinal incision was made with in line with the third web space from 1 cm distal of the wrist crease to Chapman's cardinal line. I used No Rakes to retract the soft tissues. Bipolar electrocautery was used for hemostasis. I bluntly dissected down with Littler scissors to distal edge of the transverse carpal ligament until a flash of fat was noted. I directly divided distal edgeof the transverse carpal ligament with a #15 blade. Attention was then focused on the proximal portion and I used Littler scissors to bluntly dissect off the volar surface of the transverse carpal ligament. Blunt mets were used to completely divided the transverse carpal ligament proximally under standard technique. No rakes were used to view up the wound to visualize for complete release and a Carlock elevator was used to palpate for complete release. Hemostasis was observed, all neurovascular structures were protected throughout the case. Right carpal tunnel was then injected under sterile technique. Bandaid placed over injection site. The wound was copiously irrigated with normal saline and I closed with 3-0 nylons in horizontal mattress fashion for a total of 3. Xeroform gauze, sterile 4 x 4 gauze, Webril padding, and a Bias roll was used for final bandage. There were no complications during the procedure. The patient was safely transferred to the Postanesthetic Care Unit in stable condition. I performed the entire procedure. SIGNATURE: Domonique Hoang DO PATIENT NAME: Ernestina Wade DATE: July 16, 2024 TIME: 1:28 PM PAGER/CONTACT #: ANESTHESIA: Monitored Anesthesia Care SURGERY/PROCEDURE DETAILS: as above ESTIMATED BLOOD LOSS: 0 ml SPECIMENS: None IMPLANTABLE DEVICES: NONE DRAINS: None COMPLICATIONS: None CLOSURE TECHNIQUE: Primary PARTICIPATION IN SURGERY/PROCEDURE: I/primary surgeon/proceduralist performed the procedure with assistance. No qualified resident/fellow was available. SIGNATURE: Domonique Hoang DO PATIENT NAME: Ernestina Wade DATE: July 16, 2024 TIME: 1:28 PM [facility] 06-25-2024 [facility] Telephone (ALEISHAHaier) -------- ERNESTINA WADE ([id number]) 1970 F Date Time Provider Department 06/25/24 EFRAIN HODGES During your visit today, we recorded the following information about you: Efrain Hodges APRN.ZAHIDA 06/25/2024 12:25 PM Signed Please request most recent [facility] from [facility] office or [facility] Rose Stoner LPN 06/26/2024 8:28 AM Signed Fax request sent to Dr. Montana's office for upcoming A1c to be faxed for surgery 07/16/24. .NOMAN Pierre Jessica, LPN 06/26/2024 10:58 AM Signed Received Endocrinology office visit including A1c result. Scanned into [employer] through Onbase christophe, Rose Stoner LPN Allergies As of Date: 06/25/2024 Noted Allergy Reaction REGLAN (METOCLOPRAMIDE HCL) 12/15/2015 1 - Mental Status Change Date Reviewed: 06/25/2024 Reviewed by: Efrain Hodges APRN.CNP - Fully Assessed Reason for Visit: Request Outside Medical Records [[id number]] Prescriptions as of 06/26/2024 - ezetimibe (ZETIA) 10 mg tablet Take 1 tablet by mouth every afternoon. - dilTIAZem CD (CARDIZEM CD, CARTIA XT) 120 mg 24 hr capsule Take 1 capsule by mouth once daily. - JARDIANCE 10 mg tablet - OZEMPIC 0.25 mg or 0.5 mg (2 mg/3 mL) pen 0.5 MG (0.8 ML) SUBCUTANEOUSLY EVERY WEEK - URSODIOL ORAL Taking 300 mg daily - losartan (COZAAR) 50 mg tablet Take 1 tablet by mouth every afternoon. - ergocalciferol, vitamin D2, (VITAMIN D2 ORAL) Take 1,000 Units by mouth once daily. Problem List As Of Date 06/25/2024 Noted Resolved Essential hypertension [I10] 02/16/2016 Non morbid obesity due to excess calories [E66.*02/16/2016 Lateral epicondylitis of both elbows [M77.11, M*02/16/2016 Medial epicondylitis of right elbow [M77.01] 02/16/2016 Family history of colon cancer [Z80.0] 02/16/2016 Prediabetes [R73.03] 02/16/2016 Mixed hyperlipidemia [E78.2] 06/25/2024 Encounter Status:Closed by ROSE STONER on 06/26/24 [facility] ECG COMPLETEon 06-24-2024 Atrial Rate 69 BPM [facility] Calculated P [place] 22 degrees [facility] Calculated R [place] 3 degrees [facility] Calculated T [place] 30 degrees [facility] P-R Interval 164 ms [facility] QRS Duration 80 ms [facility] QT Interval 410 ms [facility] QTC Calculation (Bazett) 439 ms [facility] Ventricular Rate 69 BPM [facility] NORMAL SINUS RHYTHM NORMAL ECG Confirmed by MD JOHNSON GREGORY () on 06/24/2024 10:45:17 AM [facility] NAME : AKANKSHAZACRAAMERICA Portillo PID : [id number] : 1970 Gender : Female Race : ORD : Procedure Date : Jun 21 2024 09:28:32 Edit Date : Jun 24 2024 10:45:22 Diagnosis: NORMAL SINUS RHYTHM NORMAL ECG Confirmed by MD JOHNSON GREGORY () on 06/24/2024 10:45:17 AM Test Reason : Location : [address] [place] [address] Overread By : MD JOHNSON GREGORY Edited By : MD JOHNSON GREGORY Referred By : DOMONIQUE HOANG Acquired by : linda [facility] [id number] 06-21-2024 ECG01 Ventricular Rate : 6 9 BPM Atrial Rate : 69 BPM P-R Interval : 164 ms QRS Duration : 80 ms Q-T Interval : 410 ms QTC Calculation(Bazett) : 439 ms Calculated P [place] : 22 degrees Calculated R [place] : 3 degrees Calculated T [place] : 30 degrees NORMAL SINUS RHYTHM NORMAL ECG Confirmed by MD JOHNSON GREGORY () on 06/24/2024 10:45:17 AM NAME : ERNESTINA WADE PID : [id number] : 1970 Gender : Female Race : ORD : Procedure Date : Jun 21 2024 09:28:32 Edit Date : Jun 24 2024 10:45:22 Diagnosis: NORMAL SINUS RHYTHM NORMAL ECG Confirmed by MD JOHNSON GREGORY () on 06/24/2024 10:45:17 AM Test Reason : Location : 636 : [facility] Overread By : MD JOHNSON GREGORY Edited By : MD JOHNSON GREGORY Referred By : DOMONIQUE HOANG Acquired by : Rick mckeon [facility] HISTORY PHYSICALon HISTORY PHYSICAL HNO ID: [id number] Author: EFRAIN HODGES APRN.INSPECTOR PRECISION ASSEMBLY Service: ? Author Type: Nurse Practitioner Type: H&P Filed: 06/25/2024 12:28 Note Text: [facility] HISTORY AND PHYSICAL EXAMINATION SERVICE DATE: 06/21/2024 SERVICE TIME: 12:27 PM PRIMARY CARE PHYSICIAN: Chikis Montana MD Assessment Patient has the following medical conditions which may affect holland-operative course: Essential hypertension Assessment: controlled on rx Last 14 BP Last 14 Encounter BP Readings: Date: BP: 06/21/2024 118/82 06/10/2024 120/82 08/28/2023 120/82 06/08/2023 120/80 03/28/2016 126/82 03/22/2016 122/84 02/16/2016 134/88 01/14/2016 114/82 12/15/2015 128/88 Mixed hyperlipidemia Assessment: on rx Prediabetes Assessment: weekly injectable and oral medication, instructed to hold weekly injectable 7 FULL days, pt verbalized understanding. [facility] Non morbid obesity due to excess calories Assessment: Body mass index is 39.14 kg/m?. Harper Activity Status Index: METS: Climb a flight of stairs or walk up a hill (5.50 METs) DASI Score: 5.5 Patient denies any chest pain or undue shortness of breath with the above physical activity. Clinical Frailty Scale: 3. Well, with treated comorbid disease STOP-Bang Score: Snores loudly Has or is being treated for high blood pressure BMI greater than 35 kg/m2 Patient over 50 years old Denies feeling tired, fatigued, or sleepy during the daytime Has not been observed to stop breathing or choking/gasping during sleep Does not have a large neck Non-male patient STOP-Bang Score: 4 [id number] Score: Age: <65 Sex: female CHF history: No Hypertension history: Yes Stroke/TIA/thromboemboli sm history: No Vascular disease history: No Diabetes history: Yes [id number] Score: 3 ARISCAT Score: Age: 51-80 Preoperative SpO2: >=96% Respiratory infection in the last month: No Preoperative anemia: No Surgical incision: peripheral Duration of surgery: <2 hrs Emergency procedure: No ARISCAT Score: 3 ANESTHESIA FINDINGS: Intubation History: No history of difficult intubation Significant Anesthesia Considerations: potential slow emergence Airway History: No history of difficult airway I - PHYSICAL EVALUATION AIRWAY Patient intubated: No. Tracheostomy tube not present Mallampati: III. TM distance: >3 FB. Neck ROM: full ROM without neurological symptoms. Mouth opening: adequate. Short neck: no. Thick neck: no Grijalva present: no Lip Bite Test: I Microretrognathia/Micron agthia/Recessed Chin: No DENTAL Dental findings: teeth intact. Additional comments: Implant/back. II - ANESTHESIA PLAN Anesthetic Plan: other Beta Shawanda Monitoring Plan Post Procedure Analgesic Plan Prepared for Surgery: optimally prepared for surgery. CONSULTS: Patient does not require consults for optimization at this time Planned Anesthetic: other anesthesia choice The Following Tests/Procedures Have Been Initiated: Orders Placed This Encounter ECG COMPLETE Standing Status: Future Standing Expiration Date: 06/21/2025 ECG COMPLETE Order Comments: Ordered by an unspecified provider REASON FOR VISIT: Ernestina Wade is a 54 year old female who is scheduled for Procedure(s): DECOMPRESSION NERVE MEDIAN CARPAL TUNNEL (Left) at the request of Dr. Domonique Hoang for consultation. My final recommendation will be communicated back to the requesting physician by way of shared medical record or letter. Subjective The patient has the following: COVID-19 Immunization Status Overdue - Covid-19 Vaccine () Overdue since 05/12/2024 09/16/2021 Imm Admin: COVID-19 vaccine (ROSEANNA) 11/20/2020 Imm Admin: COVID-19 vaccine (ROSEANNA) CHIEF COMPLAINT: Pre-op exam HPI: Ernestina Wade is a 54 year old seen for PAC due to scheduled above surgery because of CTS, left. 05/31/24, Dr. Domonique Hoang Patient presents with: Left Shoulder - Follow Up: Wants to go forward with surgery option and the details History of Present Illness PAIN EVALUATION 05/31/2024 0944 Pain Level: 1 Pain Location: Shoulder-Left Description: Aching;Sharp;Shooting;So re Duration Amount of Time: 24 Duration Units: Hours Frequency: Continuous Intervention/Comfort measure: Medication;Reposition;Co ld;Positioning Comments: Pain depends on what im doing. HPI: Ernestina Wade is a 54 year old female for a follow up visit left shoulder pain , left carpal tunnel. Pain history is noted as above. Denies calf pain, numbness, tingling, fever, chills or other constitutional symptoms. Is there any overall improvement in your condition? No Any new injury, since being seen last: No REVIEW OF SYSTEMS: General: No weight loss, malaise or fevers. 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 Ernestina is a 54 year old who presents for an annual gynecologic exam without complaints. Vaginal dryness improved with lubricant. Skin dryness as well. Joint aches and pains. Has some stomach upset today and would like to reschedule pelvic exam. Postmenopausal: Yes HRT use: No. 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 Family history of colon cancer 02/16/2016 Lateral epicondylitis of both elbows 02/16/2016 Medial epicondylitis of right elbow 02/16/2016 Menorrhagia submucous fibroids Non morbid obesity due to excess calories 02/16/2016 Prediabetes 02/16/2016 Skin cancer PAST SURGICAL HISTORY Procedure Laterality Date COLONOSCOPY FLX DX W/COLLJ SPEC WHEN PFRMD 11/18/2010 Colonoscopy COLONOSCOPY SCREENING 07/03/2020 repeat 5 years recommended LAPAROSCOPY SURG CHOLECYSTECTOMY 09/11/2000 Cholecystectomy, lap PAST SURGICAL HISTORY OF Right 2023 right calf skin cancer removal PAST SURGICAL HISTORY OF 2023 Skin cancer removed from right calf SALPINGECTOMY 03/06/2017 SHOULDER SURGERY HX Right 02/27/2019 TOTAL ABDOM HYSTERECTOMY 03/06/2017 TUBAL LIGATION HX 09/11/2004 FAMILY HISTORY Problem Relation Age of Onset None Mother GI Father diverticulitis, recurrent Hypertension Father Diabetes Father Colon Cancer Father other (stomach cancer) Father No Known Problems Brother No Known Problems Brother Cancer Maternal Grandmother lung cancer Alzheimer's Disease Paternal Grandmother Colon Cancer Paternal Grandfather Dementia Maternal Aunt SOCIAL HISTORY Social History Tobacco Use Smoking status: Never Smokeless tobacco: Never Vaping Use Vaping status: Never Used Substance Use Topics Alcohol use: Yes Comment: rare Drug use: No REVIEW OF SYSTEMS Abdomen: No abdominal pain, nausea, vomiting, diarrhea, or constipation. No bloating, early satiety, indigestion, or increased flatulence. Bladder: No dysuria, gross hematuria, urinary frequency, urinary urgency, or incontinence Breast: No breast lumps, nipple d/c, overlying skin changes, redness or skin retraction Allergies and current medication updated:Yes SENSITIVE EXAM: The sensitive examination was discussed with the Patient or Patient's Authorized Review Manager. As applicable, any other physician, advance practice provider, medical student, or other health professional student that will be observing or involved in the sensitive examination for educational or training purposes was discussed with the Patient or Authorized Review Manager. The Patient or Authorized Review Manager has agreed to proceed with the sensitive examination. (Sensitive examination includes inspection and/or palpation of the breasts, pelvis, prostate and anorectal regions). EXAM: BP 120/82 Ht 5' 4 (1.63m) Wt 227 lb 3.2 oz (103.1kg) LMP 03/21/2016 BMI 38.98 kg/(m2). GENERAL: pleasant, female in no apparent distress HEENT: Normocephalic and atraumatic NECK: full range of motion DERMATOLOGY: Normal, without lesions, non-icteric, and non-hirsute BREAST: soft, non-tender, symmetric, no dominant mass, normal nipple-areolar complex, no lymphadenopathy, and no nipple discharge CHEST: Normal inspiratory effort ABDOMEN: Deferred PELVIC: deferred BIMANUAL: deferred RECTOVAGINAL: deferred. NEURO: exam grossly non-focal EXTREMITIES: normal ASSESSMENT/PLAN: 1) Health maintenance: Pap/HPV screening no longer needed Mammogram ordered Nutrition, exercise and routine health maintenance exams reviewed. Calcium/Vitamin D supplementation information provided. Colon cancer screening: up to date with screening TSH/lipids/glucose: followed by PCP Vitamin D: ordered 2) Follow up for mammogram and pelvic exam. DO Damián Wooten Sara, MD 06/10/2024 1:22 PM Addendum Calcium AND Vitamin D: Calcium and vitamin D are good for bone building. Review your daily dietary intake of calcium and vitamin D. If you take less than 1200 mg of calcium in your diet each day, you should supplement your di (more content not included)... [facility] CNOVon 05-31-2024 CNOV Office Visit (WILL ) -------- ERNESTINA WADE ([id number]) 1970 F Date Time Provider Department 05/31/24 11:15 AM DOMONIQUE HOANG During your visit today, we recorded the following information about you: Domonique Hoang DO 05/31/2024 3:21 PM Signed Follow Up Visit Chief Complaint Ernestina Wade is a 54 year old female who presents today for follow up office visit. Patient presents with: Left Shoulder - Follow Up: Wants to go forward with surgery option and the details History of Present Illness PAIN EVALUATION 05/31/2024 0944 Pain Level: 1 Pain Location: Shoulder-Left Description: Aching;Sharp;Shooting;So re Duration Amount of Time: 24 Duration Units: Hours Frequency: Continuous Intervention/Comfort measure: Medication;Reposition;Co ld;Positioning Comments: Pain depends on what im doing. HPI: Ernestina Wade is a 54 year old female for a follow up visit left shoulder pain , left carpal tunnel. Pain history is noted as above. Denies calf pain, numbness, tingling, fever, chills or other constitutional symptoms. Is there any overall improvement in your condition? No Any new injury, since being seen last: No REVIEW OF SYMPTOMS: Patient did not have, and does not currently have, any weight loss, malaise, fever, chills, headache, chest pain, chest pressure, palpitations, cough, shortness of breath, orthopnea, paroxsymal nocturnal dyspnea, nausea, vomiting, diarrhea, constipation, melena, hematochezia, urinary difficulties, prolonged bleeding, easily bruising, heat or cold intolerance, new onset joint pain or swelling, new onset extremity weakness or numbness, new onset auditory or visual disturbances, lightheadedness, dizziness, partial loss of consciousness or full loss of consciousness. Current Outpatient Medications Medication Sig ezetimibe (ZETIA) 10 mg tablet Take 1 tablet by mouth every afternoon. dilTIAZem CD (CARDIZEM CD, CARTIA XT) 120 mg 24 hr capsule Take 1 capsule by mouth once daily. JARDIANCE 10 mg tablet OZEMPIC 0.25 mg or 0.5 mg (2 mg/3 mL) pen 0.5 MG (0.8 ML) SUBCUTANEOUSLY EVERY WEEK URSODIOL ORAL Taking 300 mg daily losartan (COZAAR) 50 mg tablet Take 1 tablet by mouth every afternoon. ergocalciferol, vitamin D2, (VITAMIN D2 ORAL) Take 1,000 Units by mouth once daily. methylPREDNISolone (MEDROL, MANOJ,) 4 mg Dose-Pack As Instructed per package albuterol HFA (PROAIR HFA) 90 mcg/actuation inhaler Inhale 2 Puffs as instructed every 4 hours as needed for Wheezing/Shortness of Breath. Hydrochlorothiazide 12.5 mg capsule Take 1 capsule by mouth once daily. No current facility-administered medications for this visit. Physical Exam Vitals: [facility] 03/21/2016 Psych: Pleasant, good affect and mood General Appearance: Well appearing, alert, in no acute distress, well-hydrated, well nourished.. Skin: Skin color, texture, turgor normal, no suspicious rashes or lesions. Peripheral Pulses: Normal. Neurologic: Gait normal. Reflexes normal and symmetric. Sensation grossly intact.. Lymph Nodes: No cervical lymphadenopathy, No supraclavicular lymphadenopathy, No axillary lymphadenopathy., and No inguinal lymphadenopathy.. Respiratory: No recent pulmonary infection, hemoptysis, chronic cough, or shortness of breath at rest Rheumatologic: Joint deformities: left shoulder pain Left Hand Exam Tests Phalen?s sign: positive Tinel's sign (median nerve): positive Comments: Dec med nerve 2pt discrim, atrophy thenar Right Shoulder Exam Right shoulder exam is normal. Tenderness The patient is experiencing no tenderness. Range of Motion Active abduction: normal Passive abduction: normal Extension: normal External rotation: normal Forward flexion: normal Internal rotation 0 degrees: normal Internal rotation 90 degrees: normal Muscle Strength Abduction: 5/5 Internal rotation: 5/5 External rotation: 5/5 Supraspinatus: 5/5 Subscapularis: 5/5 Biceps: 5/5 Tests Apprehension: negative Werner test: negative Cross arm: negative Impingement: negative Other Erythema: absent Sensation: normal Pulse: present Comments: B/l med, uln, rad, ax nerves intact Left Shoulder Exam Tenderness The patient is experiencing tenderness in the biceps tendon. Range of Motion Active abduction: normal Passive abduction: normal Extension: normal External rotation: normal Forward flexion: normal Internal rotation 0 degrees: normal Internal rotation 90 degrees: normal Muscle Strength Abduction: 5/5 Internal rotation: 5/5 External rotation: 5/5 Supraspinatus: 5/5 Subscapularis: 5/5 Biceps: 4/5 Tests Apprehension: negative Werner test: positive Cross arm: negative Impingement: positive Other Erythema: absent Sensation: normal Pulse: present Comments: Pos obriens, pos yergason, pos speeds test Assessment and Plan (more content not included)... [facility] CNOVon 05-23-2024 CNOV Office Visit (ORTHWS ) -------- ERNESTINA WADE ([id number]) 1970 F Date Time Provider Department 05/23/24 9:00 AM DOMONIQUE HOANG During your visit today, we recorded the following information about you: Domonique Hoang DO 05/23/2024 1:14 PM Signed Follow Up Visit Chief Complaint Ernestina Wade is a 54 year old female who presents today for follow up office visit. Patient presents with: Left Shoulder - Follow Up History of Present Illness PAIN EVALUATION 05/23/2024 1022 Pain Level: 3 Pain Location: Shoulder-Left Description: Aching Duration Amount of Time: -- Ongoing Frequency: Intermittent Intervention/Comfort measure: Medication HPI: Ernestina Wade is a 54 year old female for a follow up visit MRI results left shoulder and previous emg results showing carpal tunnel. Pain history is noted as above. Patient states she is having difficulty lifting her arm upward. She is having pain into her biceps area. She did have a workout in the pool yesterday. Taking Ibuprofen or Naproxen for the pain when needed and helps. Patient also has EMG results BUE to discuss. Is there any overall improvement in your condition? No Any new injury, since being seen last: No REVIEW OF SYMPTOMS: Patient did not have, and does not currently have, any weight loss, malaise, fever, chills, headache, chest pain, chest pressure, palpitations, cough, shortness of breath, orthopnea, paroxsymal nocturnal dyspnea, nausea, vomiting, diarrhea, constipation, melena, hematochezia, urinary difficulties, prolonged bleeding, easily bruising, heat or cold intolerance, new onset joint pain or swelling, new onset extremity weakness or numbness, new onset auditory or visual disturbances, lightheadedness, dizziness, partial loss of consciousness or full loss of consciousness. Current Outpatient Medications Medication Sig ezetimibe (ZETIA) 10 mg tablet Take 1 tablet by mouth every afternoon. dilTIAZem CD (CARDIZEM CD, CARTIA XT) 120 mg 24 hr capsule Take 1 capsule by mouth once daily. JARDIANCE 10 mg tablet OZEMPIC 0.25 mg or 0.5 mg (2 mg/3 mL) pen 0.5 MG (0.8 ML) SUBCUTANEOUSLY EVERY WEEK URSODIOL ORAL Taking 300 mg daily losartan (COZAAR) 50 mg tablet Take 1 tablet by mouth every afternoon. ergocalciferol, vitamin D2, (VITAMIN D2 ORAL) Take 1,000 Units by mouth once daily. methylPREDNISolone (MEDROL, MANOJ,) 4 mg Dose-Pack As Instructed per package albuterol HFA (PROAIR HFA) 90 mcg/actuation inhaler Inhale 2 Puffs as instructed every 4 hours as needed for Wheezing/Shortness of Breath. Hydrochlorothiazide 12.5 mg capsule Take 1 capsule by mouth once daily. No current facility-administered medications for this visit. Physical Exam Vitals: [facility] 03/21/2016 Psych: Pleasant, good affect and mood General Appearance: Well appearing, alert, in no acute distress, well-hydrated, well nourished.. Skin: Skin color, texture, turgor normal, no suspicious rashes or lesions. Peripheral Pulses: Normal. Neurologic: Gait normal. Reflexes normal and symmetric. Sensation grossly intact.. Lymph Nodes: No cervical lymphadenopathy, No supraclavicular lymphadenopathy, No axillary lymphadenopathy., and No inguinal lymphadenopathy.. Respiratory: No recent pulmonary infection, hemoptysis, chronic cough, or shortness of breath at rest Rheumatologic: Joint deformities: b/l hand numbness and shoulder pain Ortho Exam Assessment and Plan Radiographs: I have independently reviewed films and my findings are the same. and I have reviewed the images with the patient and family. [facility] full thickness tear Impression: Encounter Diagnosis ICD-10-CM 1. Bilateral carpal tunnel syndrome G56.03 2. Chronic left shoulder pain M25.512 G89.29 3. Complete tear of left rotator cuff, unspecified whether traumatic M75.122 4. Shoulder impingement M25.819 5. Bursitis of left shoulder M75.52 6. Tendinitis of left shoulder M77.8 Today, in detail, through a thorough evaluation, we discussed possible etiologies of pain and our plans for further diagnostic and therapeutic interventions. We discussed strategies for decreasing pain and improving strength, stability and motion. Patient's questions were answered in detailed. Patient verbalizes understanding and agrees with the treatment plan as discussed. Discussed options for treatment, nonop vs op Epic not working so couldn't consent pt Discussed full thickness and risks of atrophy/waiting too long for repair Discussed would not do carpal tunnel at same time, most likely prior to by 4 weeks Discussed surgical postop protocol Discussed emg results and mri findings in detail Pt will go home and think about options and mychart us and let us know how she wants to proceed Patient aware and in agreement of plan. All questions answered. Domonique Hoang D.O. M.P.H. Allergies (more content not included)... [facility] Upper Ext Joint Only(Routine )on 04-10-2024 Upper Ext Joint Only(Routine) [facility] Imaging Services [address] [place] [address] Upper Ext Joint Only(Routine) MR#: [id number] Acct: [id number] Name: ERNESTINA WADE Rep #: [id number] : 1970 F 54 From: Nicolás Romero MD PCP: Dr. Chikis Montana MD Status: REG CLI Study: Upper Ext Joint Only(Routine) Date of Exam: 0 04/10/24 Exam# [id number] Ordering Dr: Domonique Hoang [id number] STUDY: MRI LEFT SHOULDER REASON FOR EXAM: Female, 54 years old. IMPINGEMENT, ROTATOR CUFF DISORDER, SLAP TEAR/BICEPS TENOSYNOVITIS TECHNIQUE: Standardized fat and water weighted pulse sequences were obtained in all 3 orthogonal planes. COMPARISON: None. FINDINGS: There is a full-thickness tear of the anterior distal supraspinatus tendon insertion, overall measuring 6 mm in length (coronal T2 series 5 image 8) and 5 mm in width (sagittal T2 series 6 images 17-18). There is infraspinatus tendinosis with a linear interstitial/delaminatin g tear at the infraspinatus myotendinous junction (coronal T2 series 5 images 12-15). There is subscapularis tendinosis. Normal teres minor tendon. Normal supraspinatus muscle. Normal infraspinatus muscle. Normal subscapularis muscle. Normal teres minor muscle. Normal glenohumeral articulation. Normal humeral head and visualized proximal humerus. Normal biceps labral complex. Normal intracapsular long biceps tendon. Normal labrum. Normal capsulo-ligamentous complex. Normal rotator interval. There is mild hypertrophic acromioclavicular arthrosis. There is a Type II morphology (curved), with a neutral orientation. There is trace subacromial-subdeltoid bursal fluid. Normal visualized coracohumeral and coracoacromial ligaments. Normal quadrilateral space. Normal axillary space. Normal deltoid muscle. Normal trapezius muscle. MRI/Upper Ext Joint Only(Routine) IMPRESSION: 6 x 5 mm full-thickness tear of the anterior distal supraspinatus tendon insertion. Infraspinatus tendinosis with a linear interstitial/delaminatin g tear at the infraspinatus myotendinous junction. Subscapularis tendinosis. Mild hypertrophic acromioclavicular arthrosis. Trace subacromial-subdeltoid bursal fluid. Electronically Signed: Nicolás Romero MD at 13:17 EDT , CC: Dr. oDmonique Hoang DO; Dr. Chikis Montana MD [place]: [facility] Office Visit (ORTHWS ) -------- ERNESTINA WADE ([id number]) 1970 F Date Time Provider Department 03/21/24 12:15 PM DOMONIQUE HOANG During your visit today, we recorded the following information about you: Domonique Hoang DO 03/21/2024 12:22 PM Signed Reason for Visit/Chief Complaint Ernestina Wade is a 54 year old female who presents today for a new evaluation of following complaint: Patient presents with: Left Shoulder - New, Pain History of Present Illness: PAIN EVALUATION 03/21/2024 1157 Pain Level: 2 Pain Location: Shoulder-Left Description: Sharp;Aching;Radiating Duration Amount of Time: 2 Duration Units: Years Frequency: Continuous Intervention/Comfort measure: Medication;Cold;Heat HPI: Ernestina Wade is a 54 year old female presenting today with left shoulder pain. She states pain has bothered her since carrying a heavy bag while on vacation 06/2022. Pain history is noted as above. 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 Right hand dominant. 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 Previous Treatments: Ice: Yes Heat: Yes Brace: No NSAIDs: Yes Injections: No Surgeries: No Physical Therapy: Yes, personal training at [employer]. Review of Systems: Patient did not have, and does not currently have, any weight loss, malaise, fever, chills, headache, chest pain, chest pressure, palpitations, cough, shortness of breath, orthopnea, paroxsymal nocturnal dyspnea, nausea, vomiting, diarrhea, constipation, melena, hematochezia, urinary difficulties, prolonged bleeding, easily bruising, heat or cold intolerance, new onset joint pain or swelling, new onset extremity weakness or numbness, new onset auditory or visual disturbances, lightheadedness, dizziness, partial loss of consciousness or full loss of consciousness. Current Outpatient Medications on File Prior to Visit Medication Sig ezetimibe (ZETIA) 10 mg tablet Take 1 tablet by mouth every afternoon. dilTIAZem CD (CARDIZEM CD, CARTIA XT) 120 mg 24 hr capsule Take 1 capsule by mouth once daily. JARDIANCE 10 mg tablet OZEMPIC 0.25 mg or 0.5 mg (2 mg/3 mL) pen 0.5 MG (0.8 ML) SUBCUTANEOUSLY EVERY WEEK URSODIOL ORAL losartan (COZAAR) 50 mg tablet Take 1 tablet by mouth every afternoon. ergocalciferol, vitamin D2, (VITAMIN D2 ORAL) Take 1,000 Units by mouth once daily. methylPREDNISolone (MEDROL, MANOJ,) 4 mg Dose-Pack As Instructed per package albuterol HFA (PROAIR HFA) 90 mcg/actuation inhaler Inhale 2 Puffs as instructed every 4 hours as needed for Wheezing/Shortness of Breath. Hydrochlorothiazide 12.5 mg capsule Take 1 capsule by mouth once daily. No current facility-administered medications on file prior to visit. ALLERGIES Allergen Reactions Reglan [Metoclopram* Mental Status Change Physical Exam: Vitals: [facility] 03/21/2016 Psych: Pleasant, good affect and mood General Appearance: Well appearing, alert, in no acute distress, well-hydrated, well nourished.. Skin: Skin color, texture, turgor normal, no suspicious rashes or lesions. Peripheral Pulses: Normal. Neurologic: Gait normal. Reflexes normal and symmetric. Sensation grossly intact.. Lymph Nodes: No cervical lymphadenopathy, No supraclavicular lymphadenopathy, No axillary lymphadenopathy., and No inguinal lymphadenopathy.. Respiratory: No recent pulmonary infection, hemoptysis, chronic cough, or shortness of breath at rest Rheumatologic: Joint deformities: left shoulder pain Right Shoulder Exam Right shoulder exam is normal. Tenderness The patient is experiencing no tenderness. Range of Motion Active abduction: normal Passive abduction: normal Extension: normal External rotation: normal Forward flexion: normal Internal rotation 0 degrees: normal Internal rotation 90 degrees: normal Muscle Strength Abduction: 5/5 Internal rotation: 5/5 External rotation: 5/5 Supraspinatus: 5/5 Subscapularis: 5/5 Biceps: 5/5 Tests Apprehension: negative Werner test: negative Cross arm: negative Impingement: negative Other Erythema: absent Sensation: normal Pulse: present Comments: B/l med, uln, rad, ax nerves intact Left Shoulder Exam Tenderness The patient is experiencing tenderness in the biceps tendon. Range of Motion Active abduction: normal Passive abduction: normal Extension: normal External rotation: normal Forward flexion: normal Internal rotation 0 degrees: normal Internal rotation 90 degrees: normal Muscle Strength Abduction: 5/5 Internal rotation: 5/5 External rotation: 5/5 Supraspinatus: 5/5 Subscapularis: 5/5 Biceps: 4/5 Tests Apprehension: negative Werner test: positive Cross arm: negative Impingement: positive Other Erythema: absent Sensation: normal Pulse: present Comments: Pos obriens, pos yergason, pos speeds test (more content not included)... [facility] XR SHLDR >/=3V AP/KYARA AP/OTH R LTon 03-21-2024 XR SHLDR >/=3V AP/KYARA AP/OTHR LT * * *Final Report* * * DATE OF EXAM: Mar 21 2024 11:53AM [id number] [id number] - XR SHLDR >/=3V AP/KYARA AP/OTHR LT / PROCEDURE REASON: Pain * * * * Physician Interpretation * * * * EXAMINATION: XR SHLDR >/=3V AP/KYARA AP/OTHR LT PATIENT/TECHNOLOGIST PROVIDED HISTORY: Chronic anterior left shoulder pain that radiates to the proximal humerus. CLINICAL INFORMATION: 54 years old Female with Pain TECHNIQUE: XR SHLDR >/=3V AP/KYARA AP/OTHR LT Laterality: LEFT Number of different views (projections): 3 COMPARISON: None No acute fracture. Glenohumeral joint space is maintained with small marginal osteophytes. Mild-moderate degenerative change acromioclavicular joint. Acromiohumeral interval is maintained. IMPRESSION: No acute osseous abnormality. Degenerative changes as described. Tagman: AIDEE Transcribe Date/Time: Mar 24 2024 10:30P Dictated by : DUC TERRAZAS DO This examination was interpreted and the report reviewed and electronically signed by: DUC TERRAZAS DO on Mar 24 2024 10:32PM EST [id number] [facility] Basophil percentageOrdered B y: Morena Kiet on 12-21-2023 Bilirubin [Mass/Vol] 0.20 mg/dL 0.20-1.00 [facility] Comment on above: For patients on eltr ombopag therapy, use of Dimension [place] TBIL is not recommended. Chloride [Moles/Vol] 113 mmol/L 98-107 [facility] Cholesterol [Mass/Vol] 187 mg/dL <200 [facility] Comment on above: <200 mg/dL Desirable 200-240 mg/dL Borderline >240 mg/dL High Risk Glucose [Mass/Vol] 107 mg/dL 74-106 [facility] Comment on above: Fasting Glucose resu lt from 100 to 125 mg/dL suggests IMPAIRED HOMEOSTASIS per A.D.A. criteria. Potassium [Moles/Vol] 4.1 mmol/L 3.5-5.1 [facility] Comment on above: Slight Hemolysis, Re sult may be falsely increased. Protein [Mass/Vol] 7.4 g/dL 6.4-8.2 [facility] Sodium [Moles/Vol] 141 mmol/L 136-145 [facility] Triglyceride [Mass/Vol] 74 mg/dL <199 [facility] Comment on above: The drugs N-Acetylcy steine and Metamizole may falsely depress this assay.Serum Triglycerides Reference Interval Normal <150 mg/dL Borderline high 150 - 199 mg/dL High 200 - 499 mg/dL Very High > or = 500 mg/dL Laboratory - Chemistry and C hemistry - challengeOrdered By: Morena Santa on 12-21-2023 Albumin/Globulin [Mass ratio] 0.9 {ratio} 0.9-2.4 [facility] ALP [Catalytic activity/Vol] 74 U/L 45-117 [facility] ALT [Catalytic activity/Vol] 39 U/L 13-56 [facility] Cholesterol in HDL [Mass/Vol] 50 mg/dL >40 [facility] Comment on above: The drugs N-Acetylcy steine and Metamizole may falsely depress this assay. Reference Range HDL <40 mg/dL Low HDL Cholesterol HDL >or= 60 mg/dL High HDL Cholesterol Cholesterol in LDL [Mass/Vol] 122 mg/dL 0-130 [facility] CO2 [Moles/Vol] 22.0 mmol/L 21.0-32.0 [facility] Globulin (S) [Mass/Vol] 3.9 g/dL 2.2-4.2 [facility] Urea nitrogen/Creatinine [Mass ratio] 22.2 mg/mg 10-20 [facility] No Panel InformationOrdered By: Morena Santa on 12-21-2023 Estimated GFR (MDRD) Amer 95 mL/min >60 [facility] Comment on above: GFR Calc Estimated GFR (MDRD) Non-Af Amer 79 mL/min >60 [facility] Comment on above: Non- GFR Calc Urine Microalbumin/Creatinin e Ratio 23.8 mg/g CRE <30 [facility] VLDL Cholesterol 15 mg/dL 5-40 [facility] Serum or plasma calcium bina urement (mass/volume)Ordered By: Morena Santa on 12-21-2023 Calcium [Mass/Vol] 9.0 mg/dL 8.5-10.1 [facility] Serum or plasma creatinine m easurement (mass/volume)Ordered By: Morena Santa on 12-21-2023 Creatinine [Mass/Vol] 0.81 mg/dL 0.55-1.02 [facility] Comment on above: The validity of the calculated GFR & GFRAA in patients over 70 years has not been determined. Clinical correlation is essential. Serum or plasma thyroid stim ulating hormone (TSH) measurement (units/volume)Ordered By: Morena Santa on 12-21-2023 TSH Qn 1.90 uIU/mL 0.358-3.74 [facility] Serum or plasma urea nitroge n measurement (mass/volume)Ordered By: Morena Santa on 12-21-2023 Urea nitrogen [Mass/Vol] 18 mg/dL 7-18 [facility] Thin prep Papanicolaou smear with manual screeningOrdered By: Morena Santa on 12-21-2023 Thin prep Papanicolaou smear with manual screening 3.5 g/dL 3.2-5.0 [facility] Thin prep Papanicolaou smear with manual screening 18 U/L 15-37 [facility] Comment on above: Slight Hemolysis, Re sult may be falsely increased. Thin prep Papanicolaou smear with manual screening 6 5-15 [facility] Thin prep Papanicolaou smear with manual screening 28.5 mg/L NO RANGE EST. [facility] Urine creatinine measurement (mass/volume)Ordered By: Morena Santa on 12-21-2023 Creatinine (U) [Mass/Vol] 120.00 mg/dL NO RANGE EST. [facility] Glucose Glucometer (BldC) [M ass/Vol]Ordered By: Dean Diaz on 06-28-2023 Glucose [Mass/Vol] 123 mg/dL 74-106 [facility] Comment on above: MANAGEMENT OF PATIEN T CARE PER NURSING PROTOCOL Laboratory - Hematology and Cell countson 06-26-2023 HbA1c (Bld) [Mass fraction] 6.4 % 4.2-6.3 [facility] US FEMALE PELVIS TRANSVAGon 06-15-2023 [facility] BACTERIAL VAGINOSIS NAATon 0 06-09-2023 Lactobacillus crispatus+gasseri+lucho enii + Gardnerella vaginalis + Atopobium vaginae rRNA SHANNAN+probe Ql (Vag fld) Negative Negative for bacterial vaginosis [facility] MARIFER/TRICHOMONAS NAATon 0 06-09-2023 C. glabrata RNA SHANNAN+probe Ql (Vag fld) Negative Negative for Marifer glabrata [facility] Marifer sp DNA SHANNAN+probe Ql (Vag fld) Negative Negative for Marifer species [facility] T. vaginalis DNA SHANNAN+probe Ql (Unsp spec) Negative Negative for Trichomonas vaginalis by amplification [facility] ESTRADIOL-17B BLDon 06-08-20 E2 [Mass/Vol] [facility] FSH Don 06-08-2023 Follitropin Qn 36.7 m[IU]/mL See comment mIU/mL [facility] Laboratory - Hematology and Cell countson 03-20-2023 HbA1c (Bld) [Mass fraction] 7.2 % 4.2-6.3 [facility] Absolute lymphocyte countOrd ered By: Dr. Montana on 12-20-2022 Lymphocytes Auto (Unsp spec) [#/Vol] 2.11 10*3/uL 0.83-4.51 [facility] Basophil percentageOrdered B y: Dr. Montana on 12-20-2022 Basophils/100 WBC (Bld) 0.3 % 0-1 [facility] Bilirubin [Mass/Vol] 0.30 mg/dL 0.20-1.00 [facility] Comment on above: For patients on eltr ombopag therapy, use of Dimension [place] TBIL is not recommended. Chloride [Moles/Vol] 109 mmol/L 98-107 [facility] Cholesterol [Mass/Vol] 181 mg/dL <200 [facility] Comment on above: <200 mg/dL Desirable 200-240 mg/dL Borderline >240 mg/dL High Risk Eosinophils/100 WBC (Bld) 2.0 % 0-5 [facility] Glucose [Mass/Vol] 186 mg/dL 74-106 [facility] Comment on above: Fasting Glucose resu lt greater than or equal to 126 mg/dL suggests DIABETES MELLITUS per A.D.A. criteria. Neutrophils (Bld) [#/Vol] 4.6 10*3/uL 2.0-7.7 [facility] Neutrophils/100 WBC (Bld) 61.8 % 47-70 [facility] Potassium [Moles/Vol] 4.2 mmol/L 3.5-5.1 [facility] Protein [Mass/Vol] 7.7 g/dL 6.4-8.2 [facility] Sodium [Moles/Vol] 138 mmol/L 136-145 [facility] Triglyceride [Mass/Vol] 108 mg/dL <199 [facility] Comment on above: The drugs N-Acetylcy steine and Metamizole may falsely depress this assay.Serum Triglycerides Reference Interval Normal <150 mg/dL Borderline high 150 - 199 mg/dL High 200 - 499 mg/dL Very High > or = 500 mg/dL WBC (Bld) [#/Vol] 7.4 10*3/uL 4.4-11.0 [facility] Blood erythrocytes count (nu mber/volume)Ordered By: Dr. Montana on 12-20-2022 RBC (Bld) [#/Vol] 4.93 10*6/uL 4.2-5.4 [facility] Blood hemoglobin measurement (mass/volume)Ordered By: Dr. Montana on 12-20-2022 Hemoglobin (Bld) [Mass/Vol] 13.8 g/dL 12.0-15.0 [facility] Blood lymphocytes/100 leukoc ytesOrdered By: Dr. Montana on 12-20-2022 Lymphocytes/100 WBC (Bld) 28.6 % 19-41 [facility] Blood monocytes/100 leukocyt esOrdered By: Dr. Montana on 12-20-2022 Monocytes/100 WBC (Bld) 6.6 % 0-10 [facility] Blood platelet mean volumeOr dered By: Dr. Montana on 12-20-2022 Platelet mean volume (Bld) [Entitic vol] 11.7 fL 6.2-12.0 [facility] Determination of erythrocyte mean corpuscular volume (MCV)Ordered By: Dr. Montana on 12-20-2022 MCV (RBC) [Entitic vol] 89.5 fL 81-99 [facility] Hematocrit Auto (Bld) [Volum e fraction]Ordered By: Dr. Montana on 12-20-2022 Hematocrit (Bld) [Volume fraction] 44.1 % 37-47 [facility] Laboratory - Chemistry and C hemistry - challengeOrdered By: Dr. Montana on 12-20-2022 ALP [Catalytic activity/Vol] 81 U/L 45-117 [facility] ALT [Catalytic activity/Vol] 58 U/L 13-56 [facility] CO2 [Moles/Vol] 26.0 mmol/L 21.0-32.0 [facility] Globulin (S) [Mass/Vol] 4.2 g/dL 2.2-4.2 [facility] Urea nitrogen/Creatinine [Mass ratio] 17.5 mg/mg 10-20 [facility] Laboratory - Hematology and Cell countsOrdered By: Dr. Montana on 12-20-2022 Erythrocyte distribution width (RBC) [Entitic vol] 42.8 fL 35.1-43.9 [facility] Erythrocyte distribution width (RBC) [Ratio] 13.1 % 11.6-14.6 [facility] Immature granulocytes/100 WBC (Bld) 0.700 % 0.0-0.9 [facility] Comment on above: IG% - Immature Granu locytes (promyelocytes, myelocytes and metamyelocytes) > 1% indicates that a LEFT SHIFT is Present. MCH (RBC) [Entitic mass] 28.0 pg 27.0-32.0 [facility] Nucleated RBC/100 WBC (Bld) [Ratio] 0 % 0-5 [facility] MCHC Auto (RBC) [Mass/Vol]Or dered By: Dr. Montana on 12-20-2022 MCHC (RBC) [Mass/Vol] 31.3 g/dL 32-36 [facility] No Panel InformationOrdered By: Dr. Montana on 12-20-2022 Estimated GFR (MDRD) Amer 89 mL/min >60 [facility] Comment on above: GFR Calc Estimated GFR (MDRD) Non-Af Amer 74 mL/min >60 [facility] Comment on above: Non- GFR Calc Thyroid Stimulating Hormone (TSH) 2.71 uIU/mL 0.358-3.74 [facility] Platelets bldOrdered By: Dr. Montana on 12-20-2022 Platelets (Bld) [#/Vol] 268 10*3/uL 150-450 [facility] Serum or plasma albumin bina urement (mass/volume)Ordered By: Dr. Montana on 12-20-2022 Albumin [Mass/Vol] 3.5 g/dL 3.2-5.0 [facility] Serum or plasma albumin/glob ulin mass ratioOrdered By: Dr. Montana on 12-20-2022 Albumin/Globulin [Mass ratio] 0.8 {ratio} 0.9-2.4 [facility] Serum or plasma calcium bina urement (mass/volume)Ordered By: Dr. Montana on 12-20-2022 Calcium [Mass/Vol] 9.2 mg/dL 8.5-10.1 [facility] Serum or plasma cholesterol in HDL measurement (mass/volume)Ordered By: Dr. Montana on 12-20-2022 Cholesterol in HDL [Mass/Vol] 38 mg/dL >40 [facility] Comment on above: The drugs N-Acetylcy steine and Metamizole may falsely depress this assay. Reference Range HDL <40 mg/dL Low HDL Cholesterol HDL >or= 60 mg/dL High HDL Cholesterol Serum or plasma cholesterol in VLDL measurement (mass/volume)Ordered By: Dr. Montana on 12-20-2022 Cholesterol in VLDL [Mass/Vol] 22 mg/dL 5-40 [facility] Serum or plasma creatinine m easurement (mass/volume)Ordered By: Dr. Montana on 12-20-2022 Creatinine [Mass/Vol] 0.86 mg/dL 0.55-1.02 [facility] Comment on above: The validity of the calculated GFR & GFRAA in patients over 70 years has not been determined. Clinical correlation is essential. Serum or plasma low density lipoprotein (LDL) cholesterol measurement (mass/volume)Ordered By: Dr. Montana on 12-20-2022 Cholesterol in LDL [Mass/Vol] 121 mg/dL 0-130 [facility] Serum or plasma urea nitroge n measurement (mass/volume)Ordered By: Dr. Montana on 12-20-2022 Urea nitrogen [Mass/Vol] 15 mg/dL 7-18 [facility] Thin prep Papanicolaou smear with manual screeningOrdered By: Dr. Montana on 12-20-2022 Thin prep Papanicolaou smear with manual screening 19 U/L 15-37 [facility] Thin prep Papanicolaou smear with manual screening 3 5-15 [facility] Whole blood hemoglobin A1c/t otal hemoglobin ratio (mass fraction)Ordered By: Dr. Montana on 12-20-2022 HbA1c (Bld) [Mass fraction] 7.0 % 3.8-5.6 [facility] Comment on above: Normal < 5.7 % Predi abetic 5.7 - 6.4 % Diabetic >or= 6.5 % Please note range changes. Vital Signs Date Time Vital Sign Value Performing Clinician Faci lity 03-05-2025 09:10-0400 Body height 162.[address] Chikis Montana MD Work Phone: [facility] 03-05-2025 09:10-0400 Body weight 102.[address] Chikis Montana MD Work Phone: [facility] 02-05-2025 14:48-0400 Body height 162.[address] Chikis Montana MD Work Phone: [facility] 02-05-2025 14:48-0400 Body weight 104.[address] Chikis Montana MD Work Phone: [facility] 01-08-2025 09:29-0400 Body mass index (BMI) [Ratio] 39.1 kg/m2 Dr. Chikis Montana MD Work Phone: [facility] 01-08-2025 09:29-0400 Body weight 103.[address] Chikis Montana MD Work Phone: [facility] 01-08-2025 09:29-0400 Diastolic blood pressure 79 mm[Hg] Dr. Chikis Montana MD Work Phone: [facility] 01-08-2025 09:29-0400 Heart rate 68 /min Dr. Chikis Montana MD Work Phone: [facility] 01-08-2025 09:29-0400 Respiratory rate 14 /min Dr. Chikis Montana MD Work Phone: [facility] 01-08-2025 09:29-0400 SaO2% (BldA) [Mass fraction] 96 % Dr. Chikis Montana MD Work Phone: [facility] 01-08-2025 09:29-0400 Systolic blood pressure 120 mm[Hg] Dr. Chikis Montana MD Work Phone: [facility] 12-19-2024 08:09-0400 Body mass index (BMI) [Ratio] 39.14 kg/m2 Mckenzie Alba PA-C Work Phone: [facility] 12-19-2024 08:09-0400 Body weight 103.42 kg Mckenzie Alba PA-C Work Phone: [facility] 12-19-2024 08:09-0400 Diastolic blood pressure 82 mm[Hg] Mckenzie Alba PA-C Work Phone: [facility] 12-19-2024 08:09-0400 Heart rate 69 /min Mckenzie Alba PA-C Work Phone: [facility] 12-19-2024 08:09-0400 Respiratory rate 17 /min Mckenzie Alba PA-C Work Phone: [facility] 12-19-2024 08:09-0400 SaO2% (BldA) [Mass fraction] 97 % Mckenzie Alba PA-C Work Phone: [facility] 12-19-2024 08:09-0400 Systolic blood pressure 127 mm[Hg] Mckenzie Willis PA-C Work Phone: [facility] 11-27-2024 08:02-0400 Body mass index (BMI) [Ratio] 38.66 kg/m2 Talha Lea MD Work Phone: [facility] 11-27-2024 08:02-0400 Body weight 102.15 kg Talha Lea MD Work Phone: [facility] 11-27-2024 08:02-0400 Diastolic blood pressure 84 mm[Hg] Talha Lea MD Work Phone: [facility] 11-27-2024 08:02-0400 Systolic blood pressure 120 mm[Hg] Talha Lea MD Work Phone: [facility] 10-17-2024 09:50-0500 Body mass index (BMI) [Ratio] 39.14 kg/m2 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 [employer] Work Phone: [facility] 10-17-2024 09:50-0500 Body weight 103.42 kg 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 [employer] Work Phone: [facility] 10-17-2024 09:50-0500 Diastolic blood pressure 94 mm[Hg] 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 [employer]CISION [employer] Work Phone: [facility] 10-17-2024 09:50-0500 Systolic blood pressure 138 mm[Hg] 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 [employer] Work Phone: [facility] 10-10-2024 12:57-0500 Body mass index (BMI) [Ratio] 38.9 kg/m2 Yury Steel MD Work Phone: [facility] 10-10-2024 12:57-0500 Body weight 102.78 kg Yury Steel MD Work Phone: [facility] 10-10-2024 12:57-0500 Diastolic blood pressure 80 mm[Hg] Yury Steel MD Work Phone: [facility] 10-10-2024 12:57-0500 Systolic blood pressure 120 mm[Hg] Yury Steel MD Work Phone: [facility] 10-03-2024 15:18-0500 Body mass index (BMI) [Ratio] 39.75 kg/m2 Yury Steel MD Work Phone: [facility] 10-03-2024 15:18-0500 Body weight 105.05 kg Yury Steel MD Work Phone: [facility] 10-03-2024 15:18-0500 Diastolic blood pressure 88 mm[Hg] Yury Steel MD Work Phone: [facility] 10-03-2024 15:18-0500 Systolic blood pressure 130 mm[Hg] Yury Steel MD Work Phone: [facility] 09-17-2024 09:43-0500 Heart rate 64 /min Domonique Hoang DO Work Phone: [facility] 09-17-2024 09:43-0500 Respiratory rate 15 /min Domonique Jeanli DO Work Phone: [facility] 09-17-2024 09:43-0500 SaO2% (BldA) [Mass fraction] 92 % Domonique Rachelleorelli DO Work Phone: [facility] 09-17-2024 09:30-0500 Diastolic blood pressure 73 mm[Hg] Domoniqeu Rachelleorelli DO Work Phone: [facility] 09-17-2024 09:30-0500 Systolic blood pressure 170 mm[Hg] Domonique Penali DO Work Phone: [facility] 09-17-2024 08:54-0500 Body temperature 97 [degF] Domonique Jeanli DO Work Phone: [facility] 09-17-2024 06:53-0500 Body height 162.6 cm Domonique Hoang DO Work Phone: [facility] 09-17-2024 06:53-0500 Body mass index (BMI) [Ratio] 39.14 kg/m2 Domonique Hoang DO Work Phone: [facility] 09-17-2024 06:53-0500 Body weight 103.42 kg Domonique Hoang DO Work Phone: [facility] 08-28-2024 08:28-0500 Body height 162.6 cm Pacc 1 Work Phone: [facility] 08-28-2024 08:28-0500 Body mass index (BMI) [Ratio] 39.14 kg/m2 Pacc 1 Work Phone: [facility] 08-28-2024 08:28-0500 Body temperature 96.6 [degF] Pacc 1 Work Phone: [facility] 08-28-2024 08:28-0500 Body weight 103.42 kg Pacc 1 Work Phone: [facility] 08-28-2024 08:28-0500 Diastolic blood pressure 84 mm[Hg] Pacc 1 Work Phone: [facility] 08-28-2024 08:28-0500 Heart rate 68 /min Pacc 1 Work Phone: [facility] 08-28-2024 08:28-0500 Respiratory rate 16 /min Pacc 1 Work Phone: [facility] 08-28-2024 08:28-0500 SaO2% (BldA) [Mass fraction] 98 % Pacc 1 Work Phone: [facility] 08-28-2024 08:28-0500 Systolic blood pressure 118 mm[Hg] Pacc 1 Work Phone: [facility] 08-22-2024 08:41-0500 Body mass index (BMI) [Ratio] 39.07 kg/m2 Yury Steel MD Work Phone: [facility] 08-22-2024 08:41-0500 Body weight 103.24 kg Yury Steel MD Work Phone: [facility] 08-22-2024 08:41-0500 Diastolic blood pressure 80 mm[Hg] Yury Steel MD Work Phone: [facility] 08-22-2024 08:41-0500 Systolic blood pressure 114 mm[Hg] Yury Steel MD Work Phone: [facility] 08-20-2024 10:03-0500 Body height 162.[address] Chikis Montana MD Work Phone: [facility] 08-20-2024 10:03-0500 Body mass index (BMI) [Ratio] 39.6 kg/m2 Dr. Chikis Montana MD Work Phone: [facility] 08-20-2024 10:03-0500 Body weight 104.[address] Chikis Montana MD Work Phone: [facility] 08-20-2024 10:03-0500 Diastolic blood pressure 89 mm[Hg] Dr. Chikis Montana MD Work Phone: [facility] 08-20-2024 10:03-0500 Heart rate 69 /min Dr. Chikis Montana MD Work Phone: [facility] 08-20-2024 10:03-0500 SaO2% (BldA) [Mass fraction] 96 % Dr. Chikis Montana MD Work Phone: [facility] 08-20-2024 10:03-0500 Systolic blood pressure 148 mm[Hg] Dr. Chikis Montana MD Work Phone: [facility] 06-21-2024 08:02-0400 Body height 162.[address] [facility] 1 Work Phone: [facility] 06-21-2024 08:02-0400 Body mass index (BMI) [Ratio] 39.14 kg/m2 Pac 1 Work Phone: [facility] 06-21-2024 08:02-0400 Body temperature 97.9 [degF] Pacc 1 Work Phone: [facility] 06-21-2024 08:02-0400 Body weight 103.42 kg Pacc 1 Work Phone: [facility] 06-21-2024 08:02-0400 Diastolic blood pressure 82 mm[Hg] Pacc 1 Work Phone: [facility] 06-21-2024 08:02-0400 Heart rate 65 /min Pacc 1 Work Phone: [facility] 06-21-2024 08:02-0400 Respiratory rate 16 /min Pacc 1 Work Phone: [facility] 06-21-2024 08:02-0400 SaO2% (BldA) [Mass fraction] 98 % Pacc 1 Work Phone: [facility] 06-21-2024 08:02-0400 Systolic blood pressure 118 mm[Hg] Pacc 1 Work Phone: [facility] 06-10-2024 12:59-0400 Body height 162.6 cm Yury Steel MD Work Phone: [facility] 06-10-2024 12:59-0400 Body mass index (BMI) [Ratio] 39 kg/m2 Yury Steel MD Work Phone: [facility] 06-10-2024 12:59-0400 Body weight 103.06 kg Yury Steel MD Work Phone: [facility] 06-10-2024 12:59-0400 Diastolic blood pressure 82 mm[Hg] Yury Steel MD Work Phone: [facility] 06-10-2024 12:59-0400 Systolic blood pressure 120 mm[Hg] Yury Steel MD Work Phone: [facility] 12-25-2023 08:16-0400 Body height 162.[address] Chikis Montana Work Phone: [facility] 12-25-2023 08:16-0400 Body mass index (BMI) [Ratio] 37.8 kg/m2 Dr. Chikis Montana Work Phone: [facility] 12-25-2023 08:16-0400 Body temperature 98.2 [degF] Dr. Chikis Montana Work Phone: [facility] 12-25-2023 08:16-0400 Body weight 99.[address] Chikis Montana Work Phone: [facility] 12-25-2023 08:16-0400 Diastolic blood pressure 83 mm[Hg] Dr. Chikis Montana Work Phone: [facility] 12-25-2023 08:16-0400 Heart rate 70 /min Dr. Chikis Montana Work Phone: [facility] 12-25-2023 08:16-0400 Respiratory rate 16 /min Dr. Chikis Montana Work Phone: [facility] 12-25-2023 08:16-0400 SaO2% (BldA) [Mass fraction] 96 % Dr. Chikis Montana Work Phone: [facility] 12-25-2023 08:16-0400 Systolic blood pressure 134 mm[Hg] Dr. Chikis Montnaa Work Phone: [facility] 07-01-2023 11:06-0400 Body height 162.[address] Chikis Montana Work Phone: [facility] 07-01-2023 11:06-0400 Body mass index (BMI) [Ratio] 38.4 kg/m2 Dr. Chikis Montana Work Phone: [facility] 07-01-2023 11:06-0400 Body temperature 98.6 [degF] Dr. Chikis Montana Work Phone: [facility] 07-01-2023 11:06-0400 Body weight 101.[address] Chikis Montana Work Phone: [facility] 07-01-2023 11:06-0400 Diastolic blood pressure 85 mm[Hg] Dr. Chikis Montana Work Phone: [facility] 07-01-2023 11:06-0400 Heart rate 77 /min Dr. Chikis Montana Work Phone: [facility] 07-01-2023 11:06-0400 SaO2% (BldA) [Mass fraction] 95 % Dr. Chikis Montana Work Phone: [facility] 07-01-2023 11:06-0400 Systolic blood pressure 132 mm[Hg] Dr. Chikis Montana Work Phone: [facility] 06-28-2023 11:30-0400 Body temperature 98 [degF] Dr. Chikis Montana Work Phone: [facility] 06-28-2023 11:30-0400 Diastolic blood pressure 61 mm[Hg] Dr. Chikis Montana Work Phone: [facility] 06-28-2023 11:30-0400 Heart rate 75 /min Dr. Chikis Montana Work Phone: [facility] 06-28-2023 11:30-0400 Respiratory rate 16 /min Dr. Chikis Montana Work Phone: [facility] 06-28-2023 11:30-0400 SaO2% (BldA) [Mass fraction] 100 % Dr. Chikis Montana Work Phone: [facility] 06-28-2023 11:30-0400 Systolic blood pressure 102 mm[Hg] Dr. Chikis Montana Work Phone: [facility] 06-28-2023 10:08-0400 Body height 162.[address] Chikis Montana Work Phone: [facility] 06-28-2023 10:08-0400 Body mass index (BMI) [Ratio] 38.2 kg/m2 Dr. Chikis Montana Work Phone: [facility] 06-28-2023 10:08-0400 Body weight 101.[address] Chikis Montana Work Phone: [facility] 06-26-2023 08:10-0400 Body mass index (BMI) [Ratio] 39 kg/m2 Dr. Chikis Montana Work Phone: [facility] 06-26-2023 08:10-0400 Body temperature 98 [degF] Dr. Chikis Montana Work Phone: [facility] 06-26-2023 08:10-0400 Body weight 103.[address] Chikis Montana Work Phone: [facility] 06-26-2023 08:10-0400 Diastolic blood pressure 78 mm[Hg] Dr. Chikis Montana Work Phone: [facility] 06-26-2023 08:10-0400 Heart rate 78 /min Dr. Chikis Montana Work Phone: [facility] 06-26-2023 08:10-0400 Respiratory rate 16 /min Dr. Chikis Montana Work Phone: [facility] 06-26-2023 08:10-0400 SaO2% (BldA) [Mass fraction] 97 % Dr. Chikis Montana Work Phone: [facility] 06-26-2023 08:10-0400 Systolic blood pressure 112 mm[Hg] Dr. Chikis Montana Work Phone: [facility] 06-08-2023 10:27-0400 Body height 162.6 cm Yury Steel MD Work Phone: [facility] 06-08-2023 10:27-0400 Body weight 103.24 kg Yury Steel MD Work Phone: [facility] 06-08-2023 10:27-0400 Diastolic blood pressure 80 mm[Hg] Yury Steel MD Work Phone: [facility] 06-08-2023 10:27-0400 Systolic blood pressure 120 mm[Hg] Yury Steel MD Work Phone: [facility] 03-20-2023 10:24-0400 Body mass index (BMI) [Ratio] 40.6 kg/m2 Dr. Chikis Montana Work Phone: [facility] 03-20-2023 10:24-0400 Body temperature 98.6 [degF] Dr. Chikis Montana Work Phone: [facility] 03-20-2023 10:24-0400 Body weight 107.[address] Chikis Montana Work Phone: [facility] 03-20-2023 10:24-0400 Diastolic blood pressure 72 mm[Hg] Dr. Chikis Montana Work Phone: [facility] 03-20-2023 10:24-0400 Heart rate 82 /min Dr. Chikis Montana Work Phone: [facility] 03-20-2023 10:24-0400 Respiratory rate 18 /min Dr. Chikis Montana Work Phone: [facility] 03-20-2023 10:24-0400 SaO2% (BldA) [Mass fraction] 98 % Dr. Chikis Montana Work Phone: [facility] 03-20-2023 10:24-0400 Systolic blood pressure 152 mm[Hg] Dr. Chikis Montana Work Phone: [facility] 09-26-2022 13:33-0500 Body height 162.[address] Chikis Montana Work Phone: [facility] 09-26-2022 13:33-0500 Body mass index (BMI) [Ratio] 42.7 kg/m2 Dr. Chikis Montana Work Phone: [facility] 09-26-2022 13:33-0500 Body temperature 97.4 [degF] Dr. Chikis Montana Work Phone: [facility] 09-26-2022 13:33-0500 Body weight [address] Chikis Montana Work Phone: [facility] 09-26-2022 13:33-0500 Diastolic blood pressure 85 mm[Hg] Dr. Chikis Montana Work Phone: [facility] 09-26-2022 13:33-0500 Heart rate 82 /min Dr. Chikis Montana Work Phone: [facility] 09-26-2022 13:33-0500 Respiratory rate 18 /min Dr. Chikis Montana Work Phone: [facility] 09-26-2022 13:33-0500 SaO2% (BldA) [Mass fraction] 96 % Dr. Chikis Montana Work Phone: [facility] 09-26-2022 13:33-0500 Systolic blood pressure 136 mm[Hg] Dr. Chikis Montana Work Phone: [facility] Encounters Encounter Date Encounter Type Care Provider Facility Start: 07-02-2025 ambulatory Dean Diaz Facility :[facility] Start: 04-14-2025 ambulatory Aniceto Funk Facility: [facility] Start: 03-05-2025 End: 03-10-[address] Aniceto Funk MD -Nutritional Services Work Phone: Start: 03-05-2025 End: 03-10-[address] Chikis Montana MD Work Phone: -Nutritional Services Start: 02-05-2025 End: 02-08-[address] Aniceto Funk MD -Nutritional Services Work Phone: Start: 02-05-2025 End: 02-08-[address] Chikis Montana MD Work Phone: [facility] Work Phone: Start: 01-08-2025 End: 01-08-[address] Aniceto Funk MD -[facility] Work Phone: Start: 01-08-2025 End: 01-08-2025 ambulatory Aniceto Funk Facility:[facility] Start: 12-25-2024 End: 02-24-2025 Follow-up encounter Mckenzie Willis PA-C Work Phone: Rheumatology Start: 12-25-2024 End: 12-25-[address] Chikis Montana MD Work Phone: [facility] Work Phone: Start: 12-25-2024 End: 12-25-[address] Aniceto Funk MD -Ultrasound, [facility] Work Phone: Start: 12-25-2024 End: 12-25-2024 ambulatory Chikis Montana Facility:[facility] Start: 12-19-2024 End: 12-19-2024 Subsequent hospital visit by physician Xr [facility] Work Phone: Radiology Comment on above: Pain in joint, multi ple sites [M25.50] Start: 12-19-2024 End: 12-19-2024 ambulatory MCKENZIE WILLIS Facility:[facility] Start: 12-19-2024 End: 12-19-2024 Patient encounter procedure Mckenzie Willis PA-C Work Phone: Rheumatology Comment on above: Pain in joint, multi ple sites (Primary Dx); Osteoarthrosis multiple sites, not specified as generalized; Fatty liver; Malaise and fatigue; Postmenopausal Start: 12-12-2024 End: 12-12-2024 E-mail encounter from caregiver Mckenzie Rodrigezadriana NAJERA Work Phone: Rheumatology Start: 12-12-2024 End: 12-12-2024 Patient encounter procedure Mckenzie Rodrigezadriana NAJERA Work Phone: Rheumatology Comment on above: Upcoming Rheumatolog y Appointment Start: 11-27-[address] Ernestina Montana MD Work Phone: -Physical Therapy Work Phone: Start: 11-27-2024 End: 11-27-2024 ambulatory CHIKIS MONTANA Facility:[facility] Start: 11-27-2024 End: 11-27-2024 Patient encounter procedure Talha Lea MD Work Phone: OB/Gynecology Comment on above: Vulvar abscess (Prim steff Dx) Start: 11-26-2024 End: 11-27-2024 ambulatory Yury Steel MD Work Phone: OB/Gynecology Comment on above: Recurring Issue Start: 11-22-2024 End: 11-22-2024 ambulatory Domonique Hoang DO Work Phone: Orthopaedics Comment on above: Pain in joint, multi ple sites (Primary Dx) Start: 11-22-2024 End: 11-22-2024 Telemedicine consultation with patient Domonique Hoang DO Work Phone: Orthopaedics Start: 11-22-[address] Ernestina Montana MD Work Phone: -Physical Therapy Work Phone: Start: 11-13-2024 End: 11-13-[address] Chikis Montana MD Work Phone: [facility] Work Phone: Start: 11-13-2024 End: 11-13-[address] Chikis Montana MD -[facility] Work Phone: Start: 11-13-2024 End: 11-13-2024 ambulatory Chikis Montana Facility:[facility] Start: 11-06-2024 ambulatory [facility] Facility: [facility] Start: 11-06-2024 End: 11-06-2024 Subsequent hospital visit by physician Diagnostic Mammo Main Mammography Comment on above: Subareolar mass of r ight breast [N63.41] Start: 10-30-2024 End: 10-30-2024 ambulatory DOMONIQUE HOANG Facility:[facility] Start: 10-30-2024 End: 10-30-2024 Patient encounter procedure Domonique Hoang DO Work Phone: Orthopaedics Comment on above: Chronic pain of left knee (Primary Dx); S/P shoulder surgery Start: 10-17-2024 End: 10-17-2024 ambulatory [facility] Facility:[facility] Start: 10-17-2024 End: 10-17-2024 Patient encounter procedure Yesenia Webster INSPECTOR PRECISION ASSEMBLY Work Phone: OB/Gynecology Comment on above: Subareolar mass of r ight breast (Primary Dx) Start: 10-10-2024 End: 10-10-2024 ambulatory YURY STEEL Facility:[facility] Start: 10-10-2024 End: 10-10-2024 Patient encounter procedure Yury Steel MD Work Phone: OB/Gynecology Comment on above: Labial abscess (Prim steff Dx) Start: 10-03-2024 End: 10-03-2024 ambulatory YURY STEEL Facility:[facility] Start: 10-03-2024 End: 10-03-2024 Patient encounter procedure Yury Steel MD Work Phone: OB/Gynecology Comment on above: Vulvar abscess (Prim steff Dx); Vulvar cellulitis Start: 09-30-2024 End: 09-30-2024 ambulatory ANTHONY STONE Facility:[facility] Start: 09-30-2024 End: 09-30-2024 Patient encounter procedure Anthony Stone PA-C Work Phone: Orthopaedics Comment on above: S/P shoulder surgery (Primary Dx) Start: 09-20-2024 End: 09-20-2024 Admission to same day surgery center Domonique Nevarez Viktor DO Work Phone: Orthopaedics Comment on above: Post Surgery Start: 09-20-2024 End: 09-20-2024 ambulatory Domonique Nevarez Viktor DO Work Phone: Orthopaedics Start: 09-17-2024 ambulatory UNKNOWN PROVIDER Facili ty:[facility] Start: 09-17-2024 End: 09-17-2024 Subsequent hospital visit by physician Domonique Hoang DO Work Phone: [facility] Surgery Comment on above: Complete tear of lef t rotator cuff, unspecified whether traumatic [M75.122], Chronic left shoulder pain [M25.512, G89.29] Start: 09-09-2024 End: 09-09-2024 Telephone encounter Yury Steel MD Work Phone: Mammogram Comment on above: Orders Start: 09-09-2024 End: 09-09-2024 ambulatory YURY STEEL Facility:[facility] Start: 09-09-2024 End: 09-09-2024 Subsequent hospital visit by physician Screen Mammo [facility] Mammogram Comment on above: Encounter for screen ing mammogram for breast cancer [Z12.31] Start: 08-28-2024 Encounter for other preprocedural examination YESENIA COLE [facility] Start: 08-28-2024 End: 08-28-2024 Admission to establishment Pac Bernardo 1 Work Phone: Pre Anesthesia Start: 08-28-2024 End: 08-28-2024 ambulatory EFRAIN HODGES Facility:[facility] Start: 08-28-2024 End: 08-28-2024 Anesthesia consultation Pac Bernardo 1 Work Phone: Pre Anesthesia Comment on above: Pre-operative examin ation (Primary Dx); Essential hypertension; Mixed hyperlipidemia; Palpitations; Prediabetes; BMI 39.0-39.9,adult; Irritable bowel syndrome with diarrhea; SCC (squamous cell carcinoma) Start: 08-28-2024 End: 08-28-2024 Preprocedural examination done Pacc Bernardo 1 Work Phone: [facility] Work Phone: Start: 08-22-2024 End: 08-22-2024 ambulatory YURY STEEL Facility:[facility] Start: 08-22-2024 End: 08-22-2024 Patient encounter procedure Yury Steel MD Work Phone: OB/Gynecology Comment on above: History of hysterect teri (Primary Dx) Start: 08-20-2024 End: 08-20-2024 Telephone encounter Yury Steel MD Work Phone: OB/Gynecology Start: 08-20-2024 End: 08-20-[address] Aniceto Funk MD -[facility] Work Phone: Start: 08-20-2024 End: 08-20-2024 ambulatory Chikis Montana Facility:[facility] Start: 07-29-2024 End: 07-29-2024 ambulatory ANHTONY STONE Facility:[facility] Start: 07-29-2024 End: 07-29-2024 Patient encounter procedure Anthony Stone PA-C Work Phone: Orthopaedics Comment on above: S/P carpal tunnel re lease (Primary Dx) Start: 07-20-2024 End: 07-22-2024 ambulatory Domonique Hoang DO Work Phone: Orthopaedics Comment on above: Post op incision car e/ purple bruising Start: 07-18-2024 End: 07-18-2024 ambulatory Morena Kiet Facility:[facility] Start: 07-16-2024 End: 07-16-2024 ambulatory UNKNOWN PROVIDER Facility:[facility] Start: 06-25-2024 End: 06-26-2024 Telephone encounter Efrain Hodges APRN.CNP Work Phone: Pre Anesthesia Comment on above: Request Outside [facility] Records Start: 06-21-2024 End: 06-21-2024 Admission to establishment Pacc Pipestem 1 Work Phone: Pre Anesthesia Start: 06-21-2024 End: 06-21-2024 ambulatory DOMONIQUE HOANG Facility:[facility] Start: 06-21-2024 End: 06-21-2024 Anesthesia consultation Pac Bernardo 1 Work Phone: Pre Anesthesia Comment on above: Pre-operative examin ation (Primary Dx); Essential hypertension; Mixed hyperlipidemia; Prediabetes; Non morbid obesity due to excess calories Start: 06-21-2024 End: 06-21-2024 Preprocedural examination done Pac Pipestem 1 Work Phone: [facility] Work Phone: Start: 06-10-2024 End: 06-10-2024 ambulatory YURY STEEL Facility:[facility] Start: 06-10-2024 End: 06-10-2024 Patient encounter procedure Yury Steel MD Work Phone: OB/Gynecology Comment on above: Encounter for gyneco logical examination (general) (routine) without abnormal findings (Primary Dx); Encounter for screening mammogram for breast cancer Start: 06-10-2024 End: 06-10-2024 Patient encounter status Yury Steel MD Work Phone: [facility] Start: 06-03-2024 End: 06-03-2024 Orders Only Domonique Hoang DO Work Phone: Orthopaedics Comment on above: Carpal tunnel syndro me of left wrist (Primary Dx) Complete tear of lef t rotator cuff, unspecified whether traumatic (Primary Dx); Chronic left shoulder pain Start: 05-31-2024 End: 05-31-2024 ambulatory DOMONIQUE HOANG Facility:[facility] Start: 05-31-2024 End: 05-31-2024 Patient encounter procedure Domonique Hoang DO Work Phone: Orthopaedics Comment on above: Bilateral carpal david luís syndrome (Primary Dx); Chronic left shoulder pain; Complete tear of left rotator cuff, unspecified whether traumatic; Shoulder impingement; Tendinitis of left shoulder Start: 05-23-2024 End: 05-23-2024 ambulatory DOMONIQUE HOANG Facility:[facility] Start: 05-23-2024 End: 05-23-2024 Patient encounter procedure Domonique Bushyoannamalia DO Work Phone: Orthopaedics Comment on above: Bilateral carpal david luís syndrome (Primary Dx); Chronic left shoulder pain; Complete tear of left rotator cuff, unspecified whether traumatic; Shoulder impingement; Bursitis of left shoulder; Tendinitis of left shoulder Start: 04-10-2024 End: 04-10-2024 ambulatory Domonique Hoang Facility:[facility] Start: 03-21-2024 End: 03-21-2024 Patient encounter procedure Domonique Hoang DO Work Phone: Orthopaedics Comment on above: Degenerative superio r labral kmdqvnhn-co-cvbcbjvay (SLAP) tear of left shoulder (Primary Dx); Chronic left shoulder pain; Shoulder impingement Start: 03-21-2024 End: 03-21-2024 ambulatory DOMONIQUE BUSHYOANNAMALIA Facility:[facility] Start: 03-21-2024 End: 03-21-2024 Subsequent hospital visit by physician Idalia [facility] Work Phone: Radiology Comment on above: Pain [R52] Start: 12-25-2023 End: 12-25-[address] Chikis Montana Work Phone: [facility] Work Phone: Start: 12-21-2023 End: 12-21-[address] Chikis Montana Work Phone: [facility] Work Phone: Start: 12-21-2023 End: 12-21-[address] Chikis Montana Work Phone: [facility] Work Phone: Start: 08-16-2023 End: 08-16-[address] Chikis Montana Work Phone: [facility] Work Phone: Start: 08-16-2023 End: 08-16-[address] Chikis Montana Work Phone: [facility]-Outpatient Breast Imaging Work Phone: Start: 07-01-2023 End: 07-01-[address] Chikis Montana Work Phone: [facility] Work Phone: Start: 06-28-2023 Non-patient / Non-visit Dr. Christopher Montana Work Phone: [facility] Start: 06-28-2023 End: 06-28-2023 Admission to same day surgery center Dr. Chikis Montana Work Phone: [facility]-Endoscopy Work Phone: Start: 06-28-2023 End: 06-28-[address] Chikis Montana Work Phone: [facility] Work Phone: Start: 06-26-2023 End: 06-26-[address] Chikis Montana Work Phone: [facility] Work Phone: Start: 06-21-2023 End: 06-21-[address] Chikis Montana Work Phone: [facility]-Ultrasound, [facility] Work Phone: Start: 06-15-2023 End: 06-15-2023 Subsequent hospital visit by physician [facility] Work Phone: Radiology Comment on above: Deep dyspareunia [N9 4.12] Start: 06-09-2023 ambulatory [facility] Provider OB/Gynecol ogy Comment on above: Mammogram Start: 06-09-2023 E-mail encounter fro m caregiver [facility] Provider [facility] Start: 06-08-2023 End: 06-08-2023 Patient encounter procedure Yury Steel MD Work Phone: OB/Gynecology Comment on above: Encounter for gyneco logical examination (general) (routine) without abnormal findings (Primary Dx); Dense breast; Menopausal symptom; Deep dyspareunia; Pelvic pain in female; Vaginal discharge Start: 06-08-2023 End: 06-08-2023 Patient encounter status Yury Steel MD Work Phone: [facility] Start: 05-17-[address] Ernestina Montana Work Phone: [facility] Start: 05-05-2023 Telephone encounter Yury jackson MD Work Phone: OB/Gynecology Comment on above: Received Outside [facility] Records Start: 05-04-2023 End: 05-04-[address] Chikis Montana Work Phone: [facility] Work Phone: Start: 03-20-2023 End: 03-20-[address] Chikis Montana Work Phone: [facility] Work Phone: Start: 01-04-2023 End: 01-04-[address] Chikis Montana Work Phone: [facility] Work Phone: Start: 01-04-2023 End: 01-04-[address] Chikis Montana Work Phone: [facility], [facility] Start: 12-26-2022 End: 12-26-[address] Chikis Montana Work Phone: [facility] Gastroenter[facility] Start: 12-20-2022 End: 12-20-[address] Chikis Montana Work Phone: [facility]-Laboratory Start: 09-26-2022 End: 09-26-[address] Chikis Montana Work Phone: [facility] Start: 08-09-2022 End: 08-09-2022 ambulatory [facility] Work Phone: Start: 08-09-2022 End: 08-09-2022 Patient encounter procedure [facility]-Outpatient Breast Imaging Start: 06-17-2022 End: 06-17-2022 Patient encounter procedure [facility]-Ultrasound, [facility] Start: 05-13-2022 End: 05-13-2022 ambulatory [facility] Work Phone: Start: 05-13-2022 End: 05-13-2022 Patient encounter procedure [facility]-Ultrasound, [facility] Start: 05-10-2022 End: 05-10-2022 ambulatory [facility] Work Phone: Start: 05-10-2022 End: 05-10-2022 Patient encounter procedure [facility]-Pulmonary Services/Neurology Start: 02-21-2022 Registered Recurring [facility]-Physical Therapy Procedures Date Procedure Procedure Detail Performing Clinician Start: 12-25-2024 Vitamin D, 25-hydrox y measurement Dr. Chikis Montana MD Work Phone: Comment on above: Vitamin D StatusDefi ciency: <20 ng/mL (50nmol/L)Insufficiency: 20-30 ng/mL (50-75 nmol/L)Sufficiency: 30-100 ng/mL (75-250 nmol/L)Toxicity: >100 ng/mL (>250 nmol/L) Start: 12-25-2024 Albumin/Globulin ratio Dr. Chikis Montana MD Work Phone: Start: 12-25-[address] Chikis Montana MD Work Phone: Start: 12-25-[address] Moe Montana MD Work Phone: Comment on above: Negative <1:80 Borde rline 1:80 Positive >1:80ICAP nomenclature: AC-0For more information about Hep-2 cell patterns useANApatterns.org, the official website for theInternational Consensus on Antinuclear Antibody (TERESA)Patterns (ICAP).Performed at: [address] [id number] Director: Yuri Lomax PhD, Phone: [phone] Start: 12-25-2024 Ultrasound elastogra phy of liver Dr. Chikis Montana MD Work Phone: Start: 11-13-2024 X-ray of knee, one o r two views Dr. Chikis Montana MD Work Phone: Start: 11-13-2024 Urine microalbumin/creatinine ratio measurement Dr. Chikis Montana MD Work Phone: Start: 11-13-2024 X-ray of both knees, standing AP view Dr. Chikis Montana MD Work Phone: Start: 11-06-2024 Us breast uni real t walker with image limited Yesenia Webster DUAL HOSE CEMENTER.INSPECTOR PRECISION ASSEMBLY Work Phone: Start: 11-06-2024 Digital breast tomosynthesis unilateral 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 PRECISION ASSEMBLY Work Phone: Start: 06-21-2024 Ecg routine ecg w/le ast 12 lds i&r only [facility] Provider Start: 08-16-2023 Screening mammography Ora Montana Work Phone: Start: 06-28-[address] Chikis Montana Work Phone: Start: 06-21-20[address] Ul[address]ound elastogra phy of liver Dr. Chikis Montana Work Phone: Start: 06-15-2023 Us transvaginal Yury candelario MD Work Phone: Start: 06-08-2023 BACTERIAL VAGINOSIS SHANNANT Yury Steel MD Work Phone: Start: 06-08-2023 Iadna trichomonas vaginalis amplified probe tech Yury Steel MD Work Phone: Start: 01-04-2023 Ultrasound elastogra phy of liver Dr. Chikis Montana Work Phone: Start: 08-09-2022 Screening mammography Start: 06-17-2022 Ultrasonography of limb Start: 05-13-2022 Ultrasonography of abdomen Start: 05-13-2022 Ultrasound elastography Start: 03-22-2016 Mammography Yury jackson MD Work Phone: Start: 11-18-2010 Colonoscopy Yury jackson MD Work Phone: H/O: hysterectomy History of hysterectomy Yury Steel MD Work Phone: History of decompres andria of median nerve S/P carpal tunnel release Anthony Stone PA-C Work Phone: Plan of Treatment Date Care Activity Detail Author Start: 08-28-2027 Diabetes Screening Diabetes Screening [facility] Start: 09-09-2025 Screening for malignant neoplasm of breast Mammogram Screening [facility] Start: 06-20-2025 End: 06-20-2025 Patient encounter procedure 06/20/2025 1:40 PM EDT Office Visit OB/Gynecology [address] [place] [address] Yury Steel MD [address] [facility] [place] [address] Annual OB/Gynecology Comment on above: Annual Start: 05-23-2025 End: 05-23-2025 Patient encounter procedure Mammogram Comment on above: Encounter for screening mammogram for br east cancer [Z12.31] Annual Start: 04-02-2025 End: 04-02-2025 Patient encounter procedure 04/02/2025 1:45 PM EDT Office Visit Orthopaedics [address] [id number] Domonique Hoang DO [address] [place] [id number] Continued Left Knee Pain, discuss options Orthopaedics Comment on above: Continued Left Knee Pain, discuss option s Start: 01-09-2025 Patient referral [facility] Work Phone: Start: 12-25-2024 [facility] Start: 12-19-2024 End: 03-20-2025 TERESA BY IFA SCREEN TERESA BY IFA SCREEN Lab Routine Pain in joint, multiple sites Expected: 12/19/2024, Expires: 03/20/2025 [facility] Comment on above: Expected: 12/19/2024, Expires: Start: 12-19-2024 End: 03-20-2025 C reactive protein [Mass/volume] in Serum or Plasma C-REACTIVE PROTEIN Lab Routine Pain in joint, multiple sites Expected: 12/19/2024, Expires: 03/20/2025 [facility] Comment on above: Expected: 12/19/2024, Expires: Start: 12-19-2024 End: 03-20-2025 Cyclic citrullinated peptide IgG Ab [Units/volume] in Serum or Plasma CCP ANTIBODY IGG Lab Routine Pain in joint, multiple sites Expected: 12/19/2024, Expires: 03/20/2025 [facility] Comment on above: Expected: 12/19/2024, Expires: Start: 12-19-2024 End: 03-20-2025 Erythrocyte sedimentation rate SEDIMENTATION RATE, WESTERGREN Lab Routine Pain in joint, multiple sites Expected: 12/19/2024, Expires: 03/20/2025 [facility] Comment on above: Expected: 12/19/2024, Expires: Start: 12-19-2024 End: 03-20-2025 Rheumatoid factor [Units/volume] in Serum or Plasma RHEUMATOID FACTOR Lab Routine Pain in joint, multiple sites Expected: 12/19/2024, Expires: 03/20/2025 [facility] Work Phone: Comment on above: Expected: 12/19/2024, Expires: Start: 12-19-2024 End: 03-20-2025 Urate [Mass/volume] in Serum or Plasma URIC ACID Lab Routine Pain in joint, multiple sites Expected: 12/19/2024, Expires: 03/20/2025 [facility] Comment on above: Expected: 12/19/2024, Expires: Start: 12-19-2024 End: 12-19-2024 Patient encounter procedure 12/19/2024 8:00 AM EDT Office Visit Rheumatology [address] [place] [address] Mckenzie Willis PA-C [address] [place] [address] Pain in joint, multiple sites [M25.50] Rheumatology Comment on above: Pain in joint, multiple sites [M25.50] Start: 11-22-2024 End: 11-22-2024 ambulatory 11/22/2024 1:15 PM EDT [facility] Orthopaedics [address] [address] Domonique Hoang DO [address] [facility] [address] left knee Orthopaedics Comment on above: left knee Start: 11-06-2024 End: 11-06-2024 Patient encounter procedure 11/06/2024 8:15 AM EST Appointment Mammography [address] [address] Subareolar mass of right breast [N63.41] Mammography Comment on above: Subareolar mass of right breast [N63.41] Start: 10-30-2024 End: 10-30-2024 Patient encounter procedure 10/30/2024 9:15 AM EST Office Visit Orthopaedics [address] [place] [address] Domonique Hoang DO [address] [facility] [place] [address] 2nd post op Lt rc repair/biceps tenotomy 09/17/24 Orthopaedics Comment on above: 2nd post op Lt rc repair/biceps tenotomy 09/17/24 Start: 10-10-2024 End: 10-10-2024 Patient encounter procedure 10/10/2024 1:10 PM EST Office Visit OB/Gynecology [address] [place] [address] Yury Steel MD [address] [address] 1-2 wk follow up OB/Gynecology Comment on above: 1-2 wk follow up Start: 10-03-2024 End: 10-03-2024 Patient encounter procedure 10/03/2024 3:20 PM EST Office Visit OB/Gynecology [address] [place] [address] Yury Steel MD [address] [place] [address] Large lump on labia OB/Gynecology Comment on above: Large lump on labia Start: 09-30-2024 End: 09-30-2024 Patient encounter procedure 09/30/2024 10:30 AM EST Office Visit Orthopaedics [address] [address] Anthony Stone PA-C [address] [place] [address] 1st post op Lt rc repair/biceps tenotomy 09/17/24 Orthopaedics Comment on above: 1st post op Lt rc repair/biceps tenotomy 09/17/24 Start: 09-17-2024 End: 09-17-2024 Admission to same day surgery center 09/17/2024 8:50 AM EST - 09/17/2024 11:25 AM EST Surgery [facility] [address] [place] [address] Domonique Hoang DO [address] [place] [address] ARTHROSCOPY SHOULDER ROTATOR CUFF [facility] Surgery Comment on above: ARTHROSCOPY SHOULDER ROTATOR CUFF Start: 09-17-2024 End: 09-17-2024 Arthroscopy shoulder rotator cuff repair ARTHROSCOPY SHOULDER ROTATOR CUFF Complete tear of left rotator cuff, unspecified whether traumatic Chronic left shoulder pain 09/17/2024 8:50 AM EST ME OR Start: 09-17-2024 Subsequent hospital visit by physician 09/17/2024 8:50 AM EST Hospital Encounter [facility] [address] [place] [address] Domonique Hoang DO [address] [facility] [place] [address] Complete tear of left rotator cuff, unspecified whether traumatic [M75.122], Chronic left shoulder pain [M25.512, G89.29] [facility] Comment on above: Complete tear of left rotator cuff, unsp ecified whether traumatic [M75.122], Chronic left shoulder pain [M25.512, G89.29] Start: 09-09-2024 End: 09-09-2024 Patient encounter procedure 09/09/2024 9:30 AM EST Appointment Mammogram [address] [place] [address] [facility] Comment on above: Hellen Start: 08-28-2024 End: 11-27-2024 Hemoglobin A1c in Blood [facility] Work Phone: Comment on above: Expected: 08/28/2024, Expires: Start: 08-28-2024 End: 08-28-2024 Anesthesia consultation 08/28/2024 8:40 AM EST PAT Pre Anesthesia [address] [place] [address] 1, Pacc Pipestem [address] [place] [address] declined vv ARTHROSCOPY SHOULDER ROTATOR CUFF [1113] - Shoulder - Left Pre Anesthesia Comment on above: declined vv ARTHROSCOPY SHOULDER ROTATOR CUFF [1113] - Shoulder - Left Start: 08-16-2024 Screening for malignant neoplasm of breast Mammogram Screening [facility] Start: 07-29-2024 End: 07-29-2024 Patient encounter procedure 07/29/2024 2:00 PM EST Office Visit Orthopaedics [address] [place] [address] Anthony Stone PA-C [address] [place] [address] 1st post op Lt ctr 07/16/24 Orthopaedics Comment on above: 1st post op Lt ctr 07/16/24 Start: 07-16-2024 End: 07-16-2024 Admission to same day surgery center 07/16/2024 11:38 AM EST - 07/16/2024 12:38 PM EST Surgery [facility] [address] [place] [address] Domonique Hoang, DO [address] [facility] [place] [address] DECOMPRESSION NERVE MEDIAN CARPAL TUNNEL [facility] Comment on above: DECOMPRESSION NERVE MEDIAN CARPAL TUNNEL Start: 07-16-2024 End: 07-16-2024 Neuroplasty &/transpos median nrv carpal tunne DECOMPRESSION NERVE MEDIAN CARPAL TUNNEL Carpal tunnel syndrome of left wrist 07/16/2024 11:38 AM EST ME OR Start: 07-16-2024 Subsequent hospital visit by physician 07/16/2024 11:38 AM EST Hospital Encounter [facility] [address] [place] [address] Domonique Hoang, DO [address] [facility] [place] [address] Carpal tunnel syndrome of left wrist [G56.02] [facility] Comment on above: Carpal tunnel syndrome of left wrist [G5 6.02] Start: 06-21-2024 End: 06-21-2024 Anesthesia consultation 06/21/2024 8:00 AM EDT PAT Pre An[facility] [address] [facility] [place] [address] 1, Pacc Bernardo [address] [place] [address] VV declined Pre Anesthesia Comment on above: VV declined Start: 06-10-2024 End: 09-09-2024 25-hydroxyvitamin D3 [Mass/volume] in Serum or Plasma VITAMIN D 25 HYDROXY Lab Routine Encounter for gynecological examination (general) (routine) without abnormal findings Encounter for screening mammogram for breast cancer Expected: 06/10/2024, Expires: 09/09/2024 [facility] Comment on above: Expected: 06/10/2024, Expires: Start: 06-10-2024 End: 06-10-2024 Patient encounter procedure 06/10/2024 1:00 PM EDT Office Visit OB/Gynecology [address] [place] [address] Yury Steel MD [address] [place] [address] Annual OB/Gynecology Comment on above: Annual Start: 05-12-2024 Covid-19 Vaccine () Covid-19 Vaccine () [facility] Start: 05-12-2024 Covid-19 Vaccine () Covid-19 Vaccine () [facility] Start: 05-12-2024 Influenza vaccination Influenza Vaccine (#1) [facility] Start: 09-11-2023 Behavioral Health Screening Behavioral Health Screening [facility] Start: 06-28-2023 Colonoscopy flx dx w/collj spec when pfrmd DIAGNOSTIC COLONOSCOPY [facility] Start: 06-28-2023 Egd transoral biopsy single/multiple EGD BIOPSY SINGLE/MULTIPLE [facility] Start: 06-28-2023 Patient discharge [facility] Start: 06-08-2023 End: 06-08-2024 PELVIC US WHI PELVIC US WHI Anc Imaging Routine Deep dyspareunia Expected: 06/08/2023, Expires: 06/08/2024 [facility] Work Phone: Comment on above: Expected: 06/08/2023, Expires: Start: 05-12-2023 Covid-19 Vaccine () Covid-19 Vaccine () [facility] Start: 05-12-2023 Influenza vaccination [facility] Start: 09-11-2022 DEPRESSION ASSESSMENT DEPRESSION ASSESSMENT [facility] Start: 11-11-2021 Covid-19 Vaccine (3 - Booster for Roseanna series) Covid-19 Vaccine (3 - Booster for Roseanna series) [facility] Start: 01-31-2020 Mammography Mammogram Screening [facility] Start: 01-23-2020 Pneumococcal Vaccine: 50+ (1 of 1 - PCV) Pneumococcal Vaccine: 50+ (1 of 1 - PCV) [facility] Start: 01-23-2020 SHINGRIX VACCINE (1 of 2) SHINGRIX VACCINE (1 of 2) [facility] Start: 01-16-2019 HPV Testing HPV Testing [facility] Start: 01-16-2019 Pap Testing Pap Testing [facility] Start: 11-18-2017 Colonoscopy COLONOSCOPY [facility] Start: 11-18-2017 COLORECTAL CANCER SCREENING COLORECTAL CANCER SCREENING [facility] Start: 11-18-2017 Screening for malignant neoplasm of colon [facility] Start: 03-22-2017 Mammography MAMMOGRAM [facility] Start: 01-16-2017 Screening for malignant neoplasm of cervix Cervical Cancer Screening [facility] Start: 2015 COLOGUARD (FIT-DNA) COLOGUARD (FIT-DNA) [facility] Start: [address] COLONOGRAPHY [facility] Start: 2015 DIABETES SCREEN DIABETES SCREEN [facility] Start: 2015 Diabetes Screening Diabetes Screening [facility] Start: 2015 FECAL OCCULT BLOOD FECAL OCCULT BLOOD [facility] Start: 2015 Lipid 1996 panel - Serum or Plasma Lipid Screening [facility] Start: 2015 Lipid panel Lipid Screening [facility] Start: 2015 LIPID SCREEN LIPID SCREEN [facility] Start: 2015 Screening for malignant neoplasm of colon [facility] Start: 2015 SIGMOIDOSCOPY SIGMOIDOSCOPY [facility] Start: 01-23-2000 HPV TESTING HPV TESTING [facility] Start: 1991 PAP TESTING PAP TESTING [facility] Start: 1989 Hepatitis B Vaccine (1 of 3 - 19+ 3-dose series) Hepatitis B Vaccine (1 of 3 - 19+ 3-dose series) [facility] Start: 1989 [facility] microalbumin profile [facility] Start: 01-23-1988 Annual PCP Team Chronic Disease Visit Annual PCP Team Chronic Disease Visit [facility] Start: 01-23-1988 Anxiety Screening Anxiety Screening [facility] Start: 01-23-1988 BP Controlled (<130/80) BP Controlled (<130/80) [facility] Start: 01-23-1988 Depression Screening Depression Screening [facility] Start: 01-23-1988 HEPATITIS C SCREENING HEPATITIS C SCREENING [facility] Start: 01-23-1988 Hepatitis C screening Hepatitis C Screening [facility] Start: 01-23-1988 HIV SCREENING HIV SCREENING [facility] Start: 01-23-1988 HIV screening HIV Screening [facility] Start: 1970 COVID-19 VACCINE (#1) COVID-19 VACCINE (#1) [facility] Start: 1970 HEPATITIS B (1 of 3 - 3-dose series) HEPATITIS B (1 of 3 - 3-dose series) [facility] Start: 1970 Hepatitis B Vaccine (1 of 3 - 3-dose series) Hepatitis B Vaccine (1 of 3 - 3-dose series) [facility] Albumin [Moles/volum e] in Serum or Plasma [facility] Albumin/Globulin ratio [facility] C reactive protein [Mass/volume] in Serum or Plasma [facility] CBC W Auto Different ial panel - Blood [facility] CBC W Auto Different ial panel - Blood [facility] Colonoscopy [facility] Comprehensive metabo lic 1999 panel - Serum or Plasma [facility] metabo lic 1999 panel - Serum or Plasma [facility] Cyclic citrullinated peptide IgG Ab [Units/volume] in Serum or Plasma [facility] End: 07-10-2025 DBT Breast - bilateral screening [facility]UTH SCREENING W [facility]JA[facility] Radiology Routine Encounter for screening mammogram for breast cancer 1 Occurrences starting 06/10/2024 until 07/10/2025 [facility] Work Phone: Comment on above: 1 Occurrences starting 06/10/2024 until 07/10/2025 DBT Breast - bilater al screening [facility] SCREENING W [facility]JA[facility] Radiology Routine Encounter for screening mammogram for breast cancer 09/09/2024 11:45 AM EST [facility] Work Phone: End: 06-21-2025 ECG COMPLETE ECG COMPLETE ECG Routine Pre-operative examination 1 Occurrences starting 06/21/2024 until 06/21/2025 [facility] Work Phone: Comment on above: 1 Occurrences starting 06/21/2024 until 06/21/2025 Electrophoresis: [id number] [facility] Electrophoresis: janie ma globulin [facility] Globulin measurement [facility] Hemoglobin A1c/Hemoglobin.total in Blood [facility] IgA [Mass/volume] in Serum or Plasma [facility] IgG [Mass/volume] in Serum or Plasma [facility] IgM [Mass/volume] in Serum or Plasma [facility] Laboratory data interpretation [facility] Lipid 1995 panel - S james or Plasma [facility] Lipid 1995 panel - S james or Plasma [facility] Liver stiffness by US.transient elastography [facility] End: 11-16-2025 MG Breast - right Diagnostic for implant RUTH DIAGNOSTIC RIGHT Radiology Routine Subareolar mass of right breast 1 Occurrences starting 10/17/2024 until 11/16/2025 [facility] Work Phone: Comment on above: 1 Occurrences starting 10/17/2024 until 11/16/2025 End: 04-20-2025 MR Shoulder - left WO contrast MRI SHOULDER WO IVCON LEFT Radiology Routine Degenerative superior labral [id number] (SLAP) tear of left shoulder Chronic left shoulder pain Shoulder impingement 1 Occurrences starting 03/21/2024 until 04/20/2025 [facility] Work Phone: Comment on above: 1 Occurrences starting 03/21/2024 until 04/20/2025 Nuclear Ab [Titer] i n Serum by Immunofluorescence [facility] Patient referral [facility] Work Phone: Procedure [facility] Procedure [facility] Protein electrophore sis panel - Serum or Plasma [facility] Prothrombin time [facility] Prothrombin time [facility] Serum immunofixation [facility] Thyroid stimulating hormone measurement [facility] Thyroid stimulating hormone measurement [facility] Urine microalbumin/creatinine ratio measurement [facility] End: 11-16-2025 US Breast - right limited US BREAST LTD RIGHT Radiology Routine Subareolar mass of right breast 1 Occurrences starting 10/17/2024 until 11/16/2025 [facility] Comment on above: 1 Occurrences starting 10/17/2024 until 11/16/2025 End: 07-07-2024 Us transvaginal US FEMALE PELVIS TRANSVAG Radiology Routine Deep dyspareunia Pelvic pain in female 1 Occurrences starting 06/08/2023 until 07/07/2024 [facility] Work Phone: Comment on above: 1 Occurrences starting 06/08/2023 until 07/07/2024 Vitamin D, 25-hydrox y measurement [facility] End: 01-18-2026 XR Foot - bilateral AP and Lateral and oblique XR FOOT GENERAL 3V AP/LAT/OBL BILATERAL Radiology Routine Pain in joint, multiple sites 1 Occurrences starting 12/19/2024 until 01/18/2026 [facility] Comment on above: 1 Occurrences starting 12/19/2024 until 01/18/2026 XR Foot - bilateral AP and Lateral and oblique XR FOOT GENERAL 3V AP/LAT/OBL BILATERAL Radiology Routine Pain in joint, multiple sites 12/19/2024 9:17 AM EDT [facility] End: 11-29-2025 XR Knee - left 4 Views XR KNEE GENERAL 4V AP BOTH/PA BOTH/LAT/MERC LEFT Radiology Routine Chronic pain of left knee 1 Occurrences starting 10/30/2024 until 11/29/2025 [facility] Work Phone: Comment on above: 1 Occurrences starting 10/30/2024 until 11/29/2025 XR Shoulder - left 3 Views XR SH OULDER GENERAL 3V OR MORE AP/TRUE AP/OTHER LEFT Radiology Routine Pain 03/21/2024 11:53 AM EDT [facility] Work Phone: [facility] Immunizations Immunization Date Immunization Notes Care Provider [facility] 06-20-2024 influenza, seasonal, injectable, preservative free Dr. Chikis Montana MD Work Phone: [facility] 06-21-2023 influenza, injectabl e, quadrivalent, preservative free Dr. Chikis Montana Work Phone: [facility] 06-21-2023 influenza virus vaccine, unspecified formulation Domonique Hoang DO Work Phone: [facility] 06-19-2022 influenza virus vaccine, unspecified formulation Yury Steel MD Work Phone: [facility] 09-16-2021 Covid (Joey & Joey) Dr. Chikis Montana Work Phone: [facility] 11-20-2020 Covid (Joey & Joey) Dr. Chikis Montana Work Phone: [facility] Payers Date Payer Category Payer Self-pay [id number] 2023 Private Health Insurance [id number] 2022 Private Health Insurance [id number] 2022 Private Health Insurance [id number] 2022 Private Health Insurance [id number] 2022 Private Health Insurance [id number] Unknown [id number] Unknown [id number] 2.16.8 [id number] Unknown [id number] 2.16.8 [id number] Unknown [id number] 2.16.8 [id number] Unknown [id number] 2.16.8 [id number] Unknown [id number] 2.16.8 [id number] Unknown [id number] 2.16.8 [id number] Unknown [id number] 2.16.8 [id number] Unknown [id number] 2.16.8 [id number] Unknown [id number] 2.16.8 [id number] Unknown [id number] 2.16.8 [id number] Unknown [id number] 2.16.8 [id number] Social History Date Type Detail Facility Start: 12-31-2021 End: 12-25-2023 Tobacco smoking status AZIS Unknown if ever smoked [facility] Start: 01-29-2021 Non-smoker [facility] Start: 1970 Sex Assigned At Female [facility] Start: 02-16-2016 End: 01-08-2025 Tobacco smoking status AZIS Never smoked tobacco [facility] Work Phone: Start: 02-16-2016 Tobacco use and exposure Smokeless tobacco non-user [facility] Work Phone: Start: 03-28-2016 End: 12-19-2024 Alcohol intake Current drinker of alcohol (finding) [facility] Start: 02-16-2016 Alcohol Comment [facility] Start: 1970 Sex Assigned At Not on file [facility] Start: 06-08-2023 End: 11-15-2024 Gender identity Not on file [facility] Start: 06-08-2023 End: 11-15-2024 History of Social function [facility] National Score (1-100), lower number is lower risk 50 [facility] Start: 11-25-2024 End: 12-26-2024 Sex Female (finding) [facility] Medical Equipment Procedure Code Equipment Code Equipment Origin al Text Equipment Identifier Dates KIT,PROX TENODESIS FDA Start: 02-27-2019 PUSHLOCK,4.5X 18.5 FDA Start: 02-27-2019 SPEEDBRIDGE 4.75 FDA Start: 02-27-2019 SUTURE,2 FIBERLINK FDA Start: 02-27-2019 SUTURE,2 FIBERLINK FDA Start: 02-27-2019 KIT,PROX TENODESIS FDA Start: 02-27-2019 PUSHLOCK,4.5X 18.5 FDA Start: 02-27-2019 SPEEDBRIDGE 4.75 FDA Start: 02-27-2019 SUTURE,2 FIBERLINK FDA Start: 02-27-2019 SUTURE,2 FIBERLINK FDA Start: 02-27-2019 KIT,PROX TENODESIS FDA Start: 02-27-2019 PUSHLOCK,4.5X 18.5 FDA Start: 02-27-2019 SPEEDBRIDGE 4.75 FDA Start: 02-27-2019 SUTURE,2 FIBERLINK FDA Start: 02-27-2019 SUTURE,2 FIBERLINK FDA Start: 02-27-2019 KIT,PROX TENODESIS FDA Start: 02-27-2019 PUSHLOCK,4.5X 18.5 FDA Start: 02-27-2019 SPEEDBRIDGE 4.75 FDA Start: 02-27-2019 SUTURE,2 FIBERLINK FDA Start: 02-27-2019 SUTURE,2 FIBERLINK FDA Start: 02-27-2019 KIT,PROX TENODESIS FDA Start: 02-27-2019 PUSHLOCK,4.5X 18.5 FDA Start: 02-27-2019 SPEEDBRIDGE 4.75 FDA Start: 02-27-2019 SUTURE,2 FIBERLINK FDA Start: 02-27-2019 SUTURE,2 FIBERLINK FDA Start: 02-27-2019 KIT,PROX TENODESIS FDA Start: 02-27-2019 PUSHLOCK,4.5X 18.5 FDA Start: 02-27-2019 SPEEDBRIDGE 4.75 FDA Start: 02-27-2019 SUTURE,2 FIBERLINK FDA Start: 02-27-2019 SUTURE,2 FIBERLINK FDA Start: 02-27-2019 KIT,PROX TENODESIS FDA Start: 02-27-2019 PUSHLOCK,4.5X 18.5 FDA Start: 02-27-2019 SPEEDBRIDGE 4.75 FDA Start: 02-27-2019 SUTURE,2 FIBERLINK FDA Start: 02-27-2019 SUTURE,2 FIBERLINK FDA Start: 02-27-2019 KIT,PROX TENODESIS FDA Start: 02-27-2019 PUSHLOCK,4.5X 18.5 FDA Start: 02-27-2019 SPEEDBRIDGE 4.75 FDA Start: 02-27-2019 SUTURE,2 FIBERLINK FDA Start: 02-27-2019 SUTURE,2 FIBERLINK FDA Start: 02-27-2019 KIT,PROX TENODESIS FDA Start: 02-27-2019 PUSHLOCK,4.5X 18.5 FDA Start: 02-27-2019 SPEEDBRIDGE 4.75 FDA Start: 02-27-2019 SUTURE,2 FIBERLINK FDA Start: 02-27-2019 SUTURE,2 FIBERLINK FDA Start: 02-27-2019 KIT,PROX TENODESIS FDA Start: 02-27-2019 PUSHLOCK,4.5X 18.5 FDA Start: 02-27-2019 SPEEDBRIDGE 4.75 FDA Start: 02-27-2019 SUTURE,2 FIBERLINK FDA Start: 02-27-2019 SUTURE,2 FIBERLINK FDA Start: 02-27-2019 KIT,PROX TENODESIS FDA Start: 02-27-2019 PUSHLOCK,4.5X 18.5 FDA Start: 02-27-2019 SPEEDBRIDGE 4.75 FDA Start: 02-27-2019 SUTURE,2 FIBERLINK FDA Start: 02-27-2019 SUTURE,2 FIBERLINK FDA Start: 02-27-2019 KIT,PROX TENODESIS FDA Start: 02-27-2019 PUSHLOCK,4.5X 18.5 FDA Start: 02-27-2019 SPEEDBRIDGE 4.75 FDA Start: 02-27-2019 SUTURE,2 FIBERLINK FDA Start: 02-27-2019 SUTURE,2 FIBERLINK FDA Start: 02-27-2019 Goals Date Patient Goal Desired Activity /State Functional Status Date Assessment Result Facility 02-16-2016 Are you blind, or do you have serious difficulty seeing, even when wearing glasses No 02/16/2016 2:05 PM Fabien Ochoa MD No [facility] 02-16-2016 Do you have serious difficulty walking or climbing stairs No 02/16/2016 2:05 PM Fabien Ochoa MD No [facility] 02-16-2016 Do you have difficul ty dressing or bathing No 02/16/2016 2:05 PM Fabien Ochoa MD No [facility] 02-16-2016 Because of a physica l, mental, or emotional condition, do you have difficulty doing errands alone such as visiting a physician's office or shopping No 02/16/2016 2:05 PM Fabien Ochoa MD No [facility] 02-16-2016 Are you deaf, or do you have serious difficulty hearing No 02/16/2016 2:04 PM Fabien Ochoa MD No [facility] Mental Status Date Assessment Result Facility 06-28-2023 Cognitive function Drowsy [facility] Work Phone: 06-28-2023 Cognitive function Arousable To Voice/Nam e [facility] Work Phone: 02-16-2016 Because of a physica l, mental, or emotional condition, do you have serious difficulty concentrating, remembering, or making decisions No 02/16/2016 2:05 PM Fabien Ochoa MD No [facility] Clinical Notes 05-05-2023 to 01-08-2025 Note Date & Type Note Facility 01-08-2025 Evaluation note Diagnosis Onset Date Resolution Gastric reflux chronic December 9:19am Metabolic dysfunction-associated steatotic liver disease (MASLD) chronic January 08, 2025 9:19am [facility] Work Phone: 1(311) 355-748504-16-2025 Radiology Diagnostic study note [facility] Imaging Services [address] [place] [address] ABD Limited w/ Elastography MR#: [id number] Acct: [id number] Name: ERNESTINA WADE Rep #: [id number] : 1970 F 54 From: Tanya Shepherd MD PCP: Dr. Chikis Montana MD Status: REG CLI Study:ABD Limited w/ Elastography Date of Exa m: 12/25/24 Exam# [id number] Ordering Dr: Stephy Funk MD PROCEDURE: ABD LIMITED W/ ELASTOGRAPHY (USABDLELPARO), 12/25/2024 REASON FOR EXAM: NAFLD COMPARISON: None TECHNIQUE: Grayscale and color Doppler imaging of the right upper quadrant was performed. Explara S-shear waveelastography was performed for non-invasive assessment of liver tissue stiffness. FINDINGS: Liver: Markedly echogenic. 19.7 cm in length. Gallbladder: Surgically absent. Biliary tree: Unremarkable. CBD measures 6 mm. Pancreas: Partially obscured by shadowing bowel gas, grossly unremarkable as visualized. Right kidney: Unremarkable. 11.0 cm in length. Other: No visualized free fluid. Spleen measures 11.1 x 5.1 x 4.5 cm, within normal limits. Hepatic elastography: Number of measurements: 15 measurements across 3 regions, 5 measurements per region. US probe: CA1-7A. EQI median: 9.13 kPa EQI median velocity: 1.73 m/s IQR/Med: 20.4-27.1% (kPa) and 9.8-13.8% (m/s). If the IQR/Med is IQR/median >30%(for kPa) or >15% in m/s, the variance in the measurements is a large and the accuracy of the measurement may be in question. US/ABD Limited w/ Elastography IMPRESSION: 1. Borderline hepatomegaly and markedly echogenic appearance of the liver which is typically associated with hepatic steatosis although fibrosis/early cirrhosis could appear similarly. 2. Liver stiffness is 9.13 kPa. Per the below 2020 SRU criteria, this is suggestive of compensated advanced chronic liver disease but require further testing for confirmation. 3. Cholecystectomy without significant biliary dilatation. 4. Additional description as above. Assessment is per the Update to the SRU Liver Elastography Consensus Statement (2020) Note that the above assessment of liver fibrosis is vendor-neutral and intended for use in fibrosisrelated to viral etiologies and non-alcoholic fatty-liver disease (NAFLD); in causes other than viral hepatitis and NAFLD, the cutoff values are currently not well established. In some patients with NAFLD, the cutoff values for cACLD may be lower (7-9 kPa). Note also that in the setting of elevated LFTs, nonfasting or vascular congestion, the stage of lifer fibrosis may be overestimated. Previous SRU reference values: <1.37 m/s (5.7kPa): No to mild fibrosis 1.37 m/s - 2.2 m/s: Moderate to severe fibrosis >2.2 m/s (15kPa): Significant fibrosis / cirrhosis Reading Location: [id number] CC: Dr. Chikis Montana MD; Dr. Aniceto Funk MD ~ [place]: Signed [facility]04-10-2025 Instructions* Patient Instructions* Mckenzie Willis PA-C - 12/19/2024 4:46 PM EDT - Complete the following lab tests at [facility]: - Rheumatoid antibodies - Inflammation markers - TERESA test - Uric acid test - Complete foot x-rays at [facility]. - Discuss the possibility of sleep apnea with your primary care physician and consider a sleep study. - Continue using occasional NSAIDs like ibuprofen or naproxen for pain management as needed. - Monitor for any swelling in your joints and report any changes. [facility] NoteHNO ID: [id number] Author: MCKENZIE WILLIS PA-C Service: ? 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 Hoang specifically for consultation of my opinion in regards to the chief complaint listed below. Correspondence will be shared today via the [facility] electronic health record or through regular mail, where applicable. History of Present Illness Ernestina is a 54-year-old female with a history of HLD, HTN, T2DM, IBS, and fatty liver disease, presenting for evaluation of chronic joint pain. Ernestina reports a current pain level of 2 (Shoulder-Left). She describes the pain as Aching. The pain is Intermittent . She is currently taking methylprednisolone. Ernestina reports chronic joint pain and stiffness, primarily affecting her knees, shoulders, and feet, with symptoms beginning around 2018. She describes the pain as deep and aching, sometimes feeling as if it extends to the bone. The pain is variable, with some days being worse than others, and is not always associated with activity. She notes that the pain can be severe enough to limit her mobility, recalling an incident in 2018 where she had to crawl up stairs due to leg weakness and fatigue at the end of the day. She denies any obvious swelling in the joints but admits she has not paid close attention to this. She experiences morning stiffness in her shoulders, knees, and feet, which improves after taking a hot shower. She avoids taking pain relievers due to concerns about her liver but will occasionally take naproxen or ibuprofen, which provide substantial relief. She denies chronic low back pain, oral or nasal ulcers, photosensitivity, Raynaud's phenomenon, fevers, or ocular inflammation. She reports dry skin but denies any history of psoriasis or psoriatic arthritis. She has a history of rotator cuff surgery on her right shoulder in 2018 and more recently had carpal tunnel release on her left hand in July and left shoulder surgery in September. She reports significant improvement in numbness and tingling in her hands since the carpal tunnel surgery. She denies pain and stiffness in her hands but notes occasional mild swelling in her fingers. She reports intermittent pain on the tops of her feet and ankles, sometimes associated with mild swelling. The pain does not wake her up at night. She denies any history of blood clots or miscarriages. She reports chronic fatigue, describing it as the story of her life. She has not been evaluated for sleep apnea but notes that her claims she snores sometimes. She denies waking up feeling breathless or gasping for air. She has a history of IBS with intermittent diarrhea and constipation. She has had a colonoscopy and is up to date on her screenings. She denies any family history of rheumatoid arthritis, lupus, Crohn's disease, or psoriatic arthritis. She notes a family history of gout on her mother's side and cancer on her father's side. She is postmenopausal following a partial hysterectomy in 2017. She denies any history of unexplained or unintentional weight loss, noting that her recent weight loss of approximately 40 pounds was intentional through diet and exercise. She has since gained back about 10 pounds due to decreased gym attendance. 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 She has two adult children. RHEUMATOLOGIC REVIEW OF SYSTEMS: NO ulcers in mouth or nose NO photosensenitivity NO history of blood clots NO miscarriages + fatigue - No history of Raynaud's No fevers NO bright red painful eyes NO sicca NO sob No cough + diarrhea, + constipation - She is UTD on colonoscopy No chronic back pain NO history of psoriasis + morning stiffness No weight loss No neuropathy Pain Evaluation 09/17/2024 09/17/2024 09/29/2024 10/23/2024 12/19/2024 Pain Evaluation Pain Score 2 2 3 1 2 Location Shoulder-Left Shoulder-Left Shoulder-Left Shoulder-Left Description Sore Aching;Burning;Dull;Itching Sore;Stiffness Aching Duration (#) 6 Duration (Timeframe) Minutes Weeks Frequency Intermittent Intermittent Intermittent Intervention Reposition;Relaxation;Cold Medication;Reposition;Cold -- Rheum/Ortho Arthrocentesis Injections (last 5) 09/17/2024 07:21 Injection History Medication bupivacaine liposome (PF) 1.3 % (13.3 mg/mL) injection (EXPAREL) - INFILTRATION 133 mg - 09/17/2024 7:21:00 AM bupivacaine (PF) 0.5 % (5 mg/mL) injection - peripheral nerve block 3 mL - 09/17/2024 7:21:00 AM Patient-Entered Data PROMIS Assessments 05/31/2024 (more content not included)...[facility]04-10[facility] History of Present illness Narrative* Mckenzie Willis PA-C - 12/19/2024 7:53 AM EDT Images from the original note were not included. Rheumatology CONSULTATION Date of Service: 12/19/2024 Patient: Ernestina Wade Medical Record: [id number] Primary Care Physician: Chikis Montana MD Last Rhe[facility]ology visit: [facility] Referring Provider: Domonique Hoang [address] [place] [facility] [address] Ernestina Wade is here today at request of Dr. Hoang specifically for consultation of my opinion in regards to the chief complaint listed below. Correspondence will be shared today via the [facility] electronic health record or through regular mail, where applicable. History of Present Illness Ernestina is a 54-year-old female with a history of HLD, HTN, T2DM, IBS, and fatty liver disease, presenting for evaluation of chronic joint pain. Ernestina reports a current pain level of 2 (Shoulder-Left). She describes the pain as Aching. The painis Intermittent . She is currently taking methylprednisolone. Ernestina reports chronic joint pain and stiffness, primarily affecting her knees, shoulders, and feet,with symptoms beginning around 2018. She describes the pain as deep and aching, sometimes feeling as if it extends to the bone. The pain is variable, with some days being worse than others, and is not always associated with activity. She notes that the pain can be severe enough to limit her mobility, recalling an incident in 2018 where she had to crawl up stairs due to leg weakness and fatigue atthe end of the day. She denies any obvious swelling in the joints but admits she has not paid closeattention to this. She experiences morning stiffness in her shoulders, knees, and feet, which improves after taking a hot shower. She avoids taking pain relievers due to concerns about her liver but will occasionally take naproxen or ibuprofen, which provide substantial relief. She denies chronic low back pain, oral or nasal ulcers, photosensitivity, Raynaud's phenomenon, fevers, or ocular inflammation. She reportsdry skin but denies any history of psoriasis or psoriatic arthritis. She has a history of rotator cuff surgery on her right shoulder in 2018 and more recently had carpal tunnel release on her left hand in July and left shoulder surgery in September. She reports significant improvement in numbness and tingling in her hands since the carpal tunnel surgery. She denies pain and stiffness in her hands but notes occasional mild swelling in her fingers. She reports intermittent pain on the tops of her feet and ankles, sometimes associated with mild swelling. The pain does not wake her up at night. She denies any history of blood clots or miscarriages. She reports chronic fatigue, describing it as the story of her life. She has not been evaluated for sleep apnea but notes that her claims she snores sometimes. She denies waking up feeling breathless or gasping for air. She has a history of IBS with intermittent diarrhea and constipation. She has had a colonoscopy andis up to date on her screenings. She denies any family history of rheumatoid arthritis, lupus, Crohn's disease, or psoriatic arthritis. She notes a family history of gout on her mother's side and cancer on her father's side. She is postmenopausal following a partial hysterectomy in 2017. She denies any history of unexplained or unintentional weight loss, noting that her recent weight loss of approximately 40 pounds was intentional through diet and exercise. She has since gained back about 10 pounds due to decreased gym attendance. 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 She has two adult children. RHEUMATOLOGIC REVIEW OF SYSTEMS: NO ulcers in mouth or nose NO photosensenitivity NO history of blood clots NO miscarriages + fatigue - No history of Raynaud's No fevers NO bright red painful eyes NO sicca NO sob No cough + diarrhea, + constipation - She is UTD on colonoscopy No chronic back pain NO history of psoriasis + morning stiffness No weight loss No neuropathy Pain Evaluation 09/17/2024 09/17/2024 09/29/2024 10/23/2024 12/19/2024 Pain Evaluation Pain Score 2 2 3 1 2 Location Shoulder-Left Shoulder-Left Shoulder-Left Shoulder-Left Description Sore Aching;Burning;Dull;Itching Sore;Stiffness Aching Duration (#) 6 Duration (Timeframe) Minutes Weeks Frequency Intermittent Intermittent Intermittent Intervention Reposition;Relaxation;Cold Medication;Reposition;Cold -- Rheum/Ortho Arthrocentesis Injections (last 5) 09/17/2024 07:21 Injection History Medication bupivacaine liposome (PF) 1.3 % (13.3 mg/mL) injection (EXPAREL) - INFILTRATION 133 mg - 09/17/2024 7:21:00 AM bupivacaine (PF) 0.5 % (5 mg/mL) injection - peripheral nerve block 3 mL - 09/17/2024 7:21:00 AM Patient-Entered Data PROMIS Assessments 05/31/2024 08/28/2024 11/15/2024 PROMIS Global Health - (T-Scores - the mean of general population = 50. Five points is a clinicallymeaningful difference.) Physical T-Score 44.9 54.1 54.1 Mental T-Score 53.3 53.3 53.3 08/28/2024 11/15/2024 12/18/2024 PROMIS CAT Pain Interference PROMIS Pain Interference T-Score (range: 10 - 90) 56 (mild) PROMIS Pain Interference Percentile 27 PROMIS Adult Short Form-Global Health Score (Mental) 53.3 (Very Good) 53.3 (Very Good) 12/18/2024 PROMIS CAT Fatigue PROMIS Fatigue T-Score 59 (mild) PROMIS Fatigue Percentile 18 09/29/2024 10/23/2024 11/22/2024 PROMIS PHYSICAL FUNCTION T-SCORE PROMIS Physical Function T-Score 34 (moderate dysfunction) 48 (within normal limits) 45 (within normal limits) Physical Function Percentile 5 42 31 RAPID 3 [place] Activities of Daily Living 12/18/2024 8:01 PM Dress self? Without ANY difficulty Get in and out of bed? Without ANY difficulty Walk outdoors? Without ANY difficulty Wash and dry body? Without ANY difficulty Get in and out of car? Without ANY difficulty RAPID 3 Disease Activity Weighed Score Levels: 0 - 1: Near Remission 1.3 - 2.0: Low Severity 2.3 - 4.0: Moderate Severity 4.3 - 10.0: High Severity 12/18/2024 RAPID-3 Weighed Score RAPID 3 Weighed Score 1.22 Review of Systems Review of Systems CONSTITUTION: Negative for: Fever and Recent weight change HEENT: Negative for: Nosebleeds, Mouth sores, Trouble swallowing and Dry mouth RESPIRATORY: Negative for: Cough, Shortness of breath and Pain with breathing GASTROINTESTINAL: Positive for: Diarrhea Negative for: Melena, Heartburn and Abdominal pain MUSCULOSKELETAL: Positive for: Arthralgias, Myalgias, Muscle weakness and Morning Joint Stiffness Negative for: Joint swelling NEUROLOGICAL: Negative for: Headaches, Numbness and Memory loss SKIN: Negative for: Rash, Skin changes, Hair loss and Nail changes EYES: Negative for: Eye pain, Eye redness, Eye dryness and visual disturbance CARDIOVASCULAR: Negative for: Chest pain and Leg swelling GENITOURINARY: Negative for: Dysuria and Hematuria HEMATOLOGIC/LYMPHATIC: Negative for: Swollen glands All other reviewed and negative other than HPI. Past Medical History PAST MEDICAL HISTORY Diagnosis Date Essential hypertension 02/16/2016 Since 2005. Family history of colon cancer 02/16/2016 Lateral epicondylitis of both elbows 02/16/2016 Medial epicondylitis of right elbow 02/16/2016 Menorrhagia submucous fibroids Non morbid obesity due to excess calories 02/16/2016 Prediabetes 02/16/2016 Skin cancer Past Surgical History PAST SURGICAL HISTORY Procedure Laterality Date COLONOSCOPY FLX DX W/COLLJ SPEC WHEN PFRMD 11/18/2010 Colonoscopy COLONOSCOPY SCREENING 07/03/2020 repeat 5 years recommended LAPAROSCOPY SURG CHOLECYSTECTOMY 09/11/2000 Cholecystectomy, lap PAST SURGICAL HISTORY OF Right 2023 right calf skin cancer removal PAST SURGICAL HISTORY OF 2024 Skin cancer removed from right calf REVISE MEDIAN N/CARPAL TUNNEL SURG Left 07/16/2024 SALPINGECTOMY 03/06/2017 SHOULDER SURGERY HX Right 02/27/2019 SHOULDER SURGERY HX Left 09/17/2024 rotator cuff TOTAL ABDOM HYSTERECTOMY 03/06/2017 TUBAL LIGATION HX 09/11/2004 Family History FAMILY HISTORY Problem Relation Age of Onset None Mother GI Father diverticulitis, recurrent Hypertension Father Diabetes Father Colon Cancer Father other (stomach cancer) Father No Known Problems Brother No Known Problems Brother Cancer Maternal Grandmother lung cancer Alzheimer's Disease Paternal Grandmother Colon Cancer Paternal Grandfather Dementia Maternal Aunt Social History Social History Tobacco Use Smoking status: Never Smokeless tobacco: Never Vaping Use Vaping status: Never Used Substance Use Topics Alcohol use: Yes Comment: rare Drug use: No Current Medications Current Outpatient Medications Medication Sig semaglutide (OZEMPIC) 0.25 mg or 0.5 mg (2 mg/3 mL) pen Inject 0.25 mg subcutaneously one time a week. Mondays ezetimibe (ZETIA) 10 mg tablet Take 1 tablet by mouth every afternoon. dilTIAZem CD (CARDIZEM CD, CARTIA XT) 120 mg 24 hr capsule Take 1 capsule by mouth once daily. JARDIANCE 10 mg tablet URSODIOL ORAL Taking 300 mg daily losartan (COZAAR) 50 mg tablet Take 1 tablet by mouth every afternoon. ergocalciferol, vitamin D2, (VITAMIN D2 ORAL) Take 1,000 Units by mouth once daily. colestipol (COLESTID) 1 gram tablet PLEASE SEE ATTACHED FOR DETAILED DIRECTIONS (Patient not taking: Reported on 12/19/2024) methylPREDNISolone (MEDROL, MANOJ,) 4 mg Dose-Pack As instructed per package (Patient not taking: Reported on 10/30/2024) Labs Latest Ref Rng & Units 08/28/2024 CBC WBC 3.70 - 11.00 k/uL 6.60 Hemoglobin 11.5 - 15.5 g/dL 15.2 Hematocrit 36.0 - 46.0 % 46.3 Platelet Count 150 - 400 k/uL 232 Abs Neut (ANC) 1.45 - 7.50 k/uL 3.90 Abs Lymph 1.00 - 4.00 k/uL 2.05 Latest Ref Rng & Units 08/28/2024 CMP Sodium 136 - 144 mmol/L 141 Potassium 3.7 - 5.1 mmol/L 4.7 Chloride 98 - 107 mmol/L 105 CO2 22 - 30 mmol/L 27 Glucose 74 - 99 mg/dL 152 BUN 7 - 21 mg/dL 14 Creatinine 0.58 - 0.96 mg/dL 0.83 Calcium 8.5 - 10.2 mg/dL 10.1 AST 13 - 35 U/L 13 ALT 7 - 38 U/L 31 Alkaline Phosphatase 34 - 123 U/L 78 Imaging X-ray of bilateral knees done November 13, 2024 [facility] Impression No visible acute displaced fracture 2. Mild left patellofemoral and madi medial compartment osteoarthritis 3. Other findings as above Suspect subchondral cyst changes in bilateral medial femoral condyles L>R Last XR Chest - Impression Only No resulted procedures found. Health Maintenance Current Immunizations Reviewed on 01/14/2016 Name Date COVID-19 vaccine (Selltag) 09/16/2021, 11/20/2020 Physical Exam GENERAL APPEARANCE: Well groomed. Alert and oriented x 3. In no distress. VITAL SIGNS: BP 127/82 Pulse 69 Resp 17 Wt 228 lb (103.4kg) SpO2 97% LMP 03/21/2016 SKIN: No rash, thickening, nodules, discoloration. EYES: PERRL, EOMI HENT: Normal external examination of the ears and nose, lips, oropharynx and tongue. No oropharyngeal lesions, exudate, or sores. NECK: No mass or asymmetry. Large diameter RESPIRATORY: Normal respiratory effort. Clear to auscultation CARDIOVASCULAR: Heart RRR without gallop, murmur, or rub ABDOMEN: BS normal. No bruits, No tenderness NEUROLOGIC: Sensory exam normal. MUSCULOSKELETAL EXAMINATION: Soft tissue tender points: None Motor exam: Normal 5+/5+ muscle strength. Normal bulk and tone. Spine: Cervical spine: No visible abnormalities.No tenderness to palpation. Thoracic spine: No visible abnormalities. No tenderness to palpation. Lumbar spine: No visible abnormalities. No tenderness to palpation SI Joints: No tenderness to palpation. Negative Christa s Test Upper extremities: Shoulders: painful behind back ROM of left shoulder with positive push off test. R shoulder good ROM. Mild tenderness in left shoulder. Elbows: Full ROM in flexion and extension. No swelling or effusion. No tenderness to palpation to the joint line, olecranon, medial or lateral epicondyles. Wrists: Full ROM in all loaiza. No swelling or synovitis. No pain with pronation/supination. No tenderness to palpation Hands: Mild tenderness in left MCP joints, no significant swelling or synovitis. Able to make fists. Lower extremities: Hips: +tenderness to palpation along greater trochanter, gluteal fossa, or piriformis. Negative log roll. Negative MARA and FADIR tests. Knees: Full ROM in flexion and extension. Mild tenderness in bilateral knees noted, particularly inmedial joint margin. Ankles: Full ROM in all loaiza. No swelling or effusion. No significant tenderness Feet: Mild tenderness in MTP joints of the feet. There is currently no information documented on the homunculus. Go to the Rheumatology activity and[facility] the [facility]. Joint Exam 12/19/2024 No joint exam has been documented for this visit Joint Exam Data (across time) Impression # Pain in joint, multiple sites (M25.50) # Osteoarthrosis multiple sites, not specified as generalized (M89.49) Chronic joint pain with a history of multiple surgeries, including rotator cuff repair and carpal tunnel release. Pain is described as deep and aching, affecting knees, shoulders, and feet. Morning stiffness noted, with improvement after a hot shower. Recent knee X-rays show mild loss of cartilage and subchondral cysts, consistent with osteoarthritis. No significant swelling observed. Differential diagnosis includes inflammatory arthritis and generalized osteoarthritis, also chronic pain syndrome such as fibromyalgia may be at play as well. Gout seems less likely. - Ordered rheumatoid blood work, including rheumatoid antibodies, inflammation markers, TERESA test, and uric acid. - Ordered X-rays of the feet to assess for erosive changes. - Patient to complete labs at [facility] for cost considerations. - Discussed the possibility of inflammatory arthritis and the need to rule out other causes. # Fatty liver (K76.0) Patient has a history of fatty liver disease and avoids certain medications due to this condition. - Avoid regular NSAIDs # Malaise and fatigue (R53.81) Chronic fatigue reported, with unrefreshed feeling upon waking and snoring per . No history of sleep apnea evaluation. - Recommended discussing sleep apnea evaluation with primary care physician. # Postmenopausal (Z78.0) Patient is postmenopausal following a partial hysterectomy in 2017. No typical menopausal symptoms reported. Plan Orders this visit: Office Visit on 12/19/24 CONSULT TO RHEUM/IMMUN DISEASE semaglutide (OZEMPIC) 0.25 mg or 0.5 mg (2 mg/3 mL) pen - Complete the following lab tests at [facility]: - Rheumatoid antibodies - Inflammation markers - TERESA test - Uric acid test - Complete foot x-rays at [facility]. - Discuss the possibility of sleep apnea with your primary care physician and consider a sleep study. - Continue using NSAIDs like ibuprofen or naproxen for pain management as needed. - Monitor for any swelling in your joints and report any changes. Follow up pending results to finalize diagnosis. I spent a total of 60 minutes on the date of the service which included preparing to see the patient, [id number] patient care, completing clinical documentation, obtaining and/or reviewing separately obtained history, performing a medically appropriate examination, counseling and educating the pat ient/family/caregiver, and ordering medications, tests, or procedures. The patient consented to the use of [employer]alt[employer] software for draft documentation of the visit consistent with [facility] s Notice of Privacy Practices. Mckenzie Willis PA-C Rheumatology Date: December 19, 2024 Time: 4:47 PM documented in this encounterPrem[facility]03-19-2025 Note* Addendum Note - Talha Lea MD - 11/27/2024 8:43 AM EDTAddended by: TALHA LEA on: 11/27/2024 08:43 AM Modules accepted: Orders [facility]03-19-2025 Miscellaneous Notes* Addendum Note - Talha Lea MD - 11/27/2024 8:43 AM EDTAddended by: TALHA LEA on: 11/27/2024 08:43 AM Modules accepted: Orders documented in this encounterPrem[facility]03-[facility]-2025 NoteHNO ID: [id number] Author: TALHA LEA MD Service: ? 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 Ernestina Wade is a 54 year old female who presents for problem visit for evaluation of a recurrent lump on the right labia. . 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 Family history of colon cancer 02/16/2016 Lateral epicondylitis of both elbows 02/16/2016 Medial epicondylitis of right elbow 02/16/2016 Menorrhagia submucous fibroids Non morbid obesity due to excess calories 02/16/2016 Prediabetes 02/16/2016 Skin cancer PAST SURGICAL HISTORY Procedure Laterality Date COLONOSCOPY FLX DX W/COLLJ SPEC WHEN PFRMD 11/18/2010 Colonoscopy COLONOSCOPY SCREENING 07/03/2020 repeat 5 years recommended LAPAROSCOPY SURG CHOLECYSTECTOMY 09/11/2000 Cholecystectomy, lap PAST SURGICAL HISTORY OF Right 2023 right calf skin cancer removal PAST SURGICAL HISTORY OF 2023 Skin cancer removed from right calf REVISE MEDIAN N/CARPAL TUNNEL SURG Left 07/16/2024 SALPINGECTOMY 03/06/2017 SHOULDER SURGERY HX Right 02/27/2019 SHOULDER SURGERY HX Left 09/17/2024 rotator cuff TOTAL ABDOM HYSTERECTOMY 03/06/2017 TUBAL LIGATION HX 09/11/2004 FAMILY HISTORY Problem Relation Age of Onset None Mother GI Father diverticulitis, recurrent Hypertension Father Diabetes Father Colon Cancer Father other (stomach cancer) Father No Known Problems Brother No Known Problems Brother Cancer Maternal Grandmother lung cancer Alzheimer's Disease Paternal Grandmother Colon Cancer Paternal Grandfather Dementia Maternal Aunt Social History Tobacco Use Smoking status: Never Smokeless tobacco: Never Vaping Use Vaping status: Never Used Substance Use Topics Alcohol use: Yes Comment: rare Drug use: No Current Outpatient Medications Medication Sig colestipol (COLESTID) 1 gram tablet PLEASE SEE ATTACHED FOR DETAILED DIRECTIONS methylPREDNISolone (MEDROL, MANOJ,) 4 mg Dose-Pack As instructed per package (Patient not taking: Reported on 10/30/2024) ezetimibe (ZETIA) 10 mg tablet Take 1 tablet by mouth every afternoon. dilTIAZem CD (CARDIZEM CD, CARTIA XT) 120 mg 24 hr capsule Take 1 capsule by mouth once daily. JARDIANCE 10 mg tablet URSODIOL ORAL Taking 300 mg daily losartan (COZAAR) 50 mg tablet Take 1 tablet by mouth every afternoon. ergocalciferol, vitamin D2, (VITAMIN D2 ORAL) Take 1,000 Units by mouth once daily. No current facility-administered medications for this visit. Allergies As of Date: 11/27/2024 Allergen Noted Reaction REGLAN [METOCLOPRAMIDE HCL] 12/15/2015 Mental Status Change Fully Assessed 10/30/2024 REVIEW OF SYSTEMS Abdomen: No bloating, early satiety, indigestion, or increased flatulence. No abdominal pain, nausea, vomiting, diarrhea, or constipation. Bladder: No dysuria, gross hematuria, urinary frequency, urinary urgency, or incontinence. Breast: No breast lumps, nipple d/c, overlying skin changes, redness or skin retraction. Expanded ROS: N/A Allergies and current medication updated:Yes SENSITIVE EXAM: The sensitive examination was discussed with the Patient or Patient's Authorized Review Manager. As applicable, any other physician, advance practice provider, medical student, or other health professional student that will be observing or involved in the sensitive examination for educational or training purposes was discussed with the Patient or Authorized Review Manager. The Patient or Authorized Review Manager has agreed to proceed with the sensitive examination. (Sensitive examination includes inspection and/or palpation of the breasts, pelvis, prostate and anorectal regions). EXAM: LMP 03/21/2016 GENERAL: pleasant, female in no apparent distress PELVIC: , normal Bartholin's glands, urethra, [place]'s glands, no cervical lesions, good vaginal support, physiologic discharge present, normal appearing perineal body and perianal region, and noting a subcentimeter, resolving abscess that drained spontaneously. 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 Ernestina Wade is a 54 year old female who presents for problem visit for evaluation of a recurrentlump on the right labia. . 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 Family history of colon cancer 02/16/2016 Lateral epicondylitis of both elbows 02/16/2016 Medial epicondylitis of right elbow 02/16/2016 Menorrhagia submucous fibroids Non morbid obesity due to excess calories 02/16/2016 Prediabetes 02/16/2016 Skin cancer PAST SURGICAL HISTORY Procedure Laterality Date COLONOSCOPY FLX DX W/COLLJ SPEC WHEN PFRMD 11/18/2010 Colonoscopy COLONOSCOPY SCREENING 07/03/2020 repeat 5 years recommended LAPAROSCOPY SURG CHOLECYSTECTOMY 09/11/2000 Cholecystectomy, lap PAST SURGICAL HISTORY OF Right 2023 right calf skin cancer removal PAST SURGICAL HISTORY OF 2023 Skin cancer removed from right calf REVISE MEDIAN N/CARPAL TUNNEL SURG Left 07/16/2024 SALPINGECTOMY 03/06/2017 SHOULDER SURGERY HX Right 02/27/2019 SHOULDER SURGERY HX Left 09/17/2024 rotator cuff TOTAL ABDOM HYSTERECTOMY 03/06/2017 TUBAL LIGATION HX 09/11/2004 FAMILY HISTORY Problem Relation Age of Onset None Mother GI Father diverticulitis, recurrent Hypertension Father Diabetes Father Colon Cancer Father other (stomach cancer) Father No Known Problems Brother No Known Problems Brother Cancer Maternal Grandmother lung cancer Alzheimer's Disease Paternal Grandmother Colon Cancer Paternal Grandfather Dementia Maternal Aunt Social History Tobacco Use Smoking status: Never Smokeless tobacco: Never Vaping Use Vaping status: Never Used Substance Use Topics Alcohol use: Yes Comment: rare Drug use: No Current Outpatient Medications Medication Sig colestipol (COLESTID) 1 gram tablet PLEASE SEE ATTACHED FOR DETAILED DIRECTIONS methylPREDNISolone (MEDROL, MANOJ,) 4 mg Dose-Pack As instructed per package (Patient not taking: Reported on 10/30/2024) ezetimibe (ZETIA) 10 mg tablet Take 1 tablet by mouth every afternoon. dilTIAZem CD (CARDIZEM CD, CARTIA XT) 120 mg 24 hr capsule Take 1 capsule by mouth once daily. JARDIANCE 10 mg tablet URSODIOL ORAL Taking 300 mg daily losartan (COZAAR) 50 mg tablet Take 1 tablet by mouth every afternoon. ergocalciferol, vitamin D2, (VITAMIN D2 ORAL) Take 1,000 Units by mouth once daily. No current facility-administered medications for this visit. Allergies As of Date: 11/27/2024 Allergen Noted Reaction REGLAN [METOCLOPRAMIDE HCL] 12/15/2015 Mental Status Change Fully Assessed 10/30/2024 REVIEW OF SYSTEMS Abdomen: No bloating, early satiety, indigestion, or increased flatulence. No abdominal pain, nausea, vomiting, diarrhea, or constipation. Bladder: No dysuria, gross hematuria, urinary frequency, urinary urgency, or incontinence. Breast: No breast lumps, nipple d/c, overlying skin changes, redness or skin retraction. Expanded ROS: N/A Allergies and current medication updated:Yes SENSITIVE EXAM: The sensitive examination was discussed with the Patient or Patient's Authorized Review Manager. As applicable, any other physician, advance practice provider, medical student, or other health professional student that will be observing or involved in the sensitive examination for educational or training purposes was discussed with the Patient or Authorized Review Manager. The Patient or Authorized Review Manager has agreed to proceed with the sensitive examination. (Sensitive examination includes inspection and/or palpation of the breasts, pelvis, prostate and anorectal regions). EXAM: LMP 03/21/2016 GENERAL: pleasant, female in no apparent distress PELVIC: , normal Bartholin's glands, urethra, [place]'s glands, no cervical lesions, good vaginal support, physiologic discharge present, normal appearing perineal body and perianal region, and noting a subcentimeter, resolving abscess that drained spontaneously. BIMANUAL: deferred ASSESSMENT AND PLAN: Assessment & Plan Vulvar abscess Keflex rx if recurrs Talha Lea MD ftft> 30 m documented in [facility]25 NoteHNO ID: [id number] Author: DOMONIQUE HOANG, DO Service: ? Author Type: Physician Type: Progress Notes Filed: 11/22/2024 13:30 Note Text: VIRTUAL VISIT PROGRESS NOTE This is a virtual visit using Pre[employer] Zoom Video Visit. It required patient-provider interaction for the medical decision making as documented below. I have communicated my name and active licensure. The patient's identity and physical location were verified at the time of this visit. Either the patient or their legal medical sales representative has been informed of the risks and benefits of -- and alternatives to -- treatment through a remote evaluation and consents to proceed with the evaluation remotely. Ernestina Wade is a 54 year old female seen for bilateral knee pain left greater than right, states hit or miss, multiple joint complaints, feels like something systemic going on. States no changes in med history but pain is inconsistent and can be very stiff in the morning.. Denies calf pain, numbness, tingling, fever, chills or other constitutional symptoms. HISTORY REVIEWED (electronic chart updated): PAST MEDICAL HISTORY Diagnosis Date Essential hypertension 02/16/2016 Since 2005. Family history of colon cancer 02/16/2016 Lateral epicondylitis of both elbows 02/16/2016 Medial epicondylitis of right elbow 02/16/2016 Menorrhagia submucous fibroids Non morbid obesity due to excess calories 02/16/2016 Prediabetes 02/16/2016 Skin cancer PAST SURGICAL HISTORY Procedure Laterality Date COLONOSCOPY FLX DX W/COLLJ SPEC WHEN PFRMD 11/18/2010 Colonoscopy COLONOSCOPY SCREENING 07/03/2020 repeat 5 years recommended LAPAROSCOPY SURG CHOLECYSTECTOMY 09/11/2000 Cholecystectomy, lap PAST SURGICAL HISTORY OF Right 2023 right calf skin cancer removal PAST SURGICAL HISTORY OF 2023 Skin cancer removed from right calf REVISE MEDIAN N/CARPAL TUNNEL SURG Left 07/16/2024 SALPINGECTOMY 03/06/2017 SHOULDER SURGERY HX Right 02/27/2019 SHOULDER SURGERY HX Left 09/17/2024 rotator cuff TOTAL ABDOM HYSTERECTOMY 03/06/2017 TUBAL LIGATION HX 09/11/2004 FAMILY HISTORY Problem Relation Age of Onset None Mother GI Father diverticulitis, recurrent Hypertension Father Diabetes Father Colon Cancer Father other (stomach cancer) Father No Known Problems Brother No Known Problems Brother Cancer Maternal Grandmother lung cancer Alzheimer's Disease Paternal Grandmother Colon Cancer Paternal Grandfather Dementia Maternal Aunt Social History Tobacco Use Smoking status: Never Smokeless tobacco: Never Vaping Use Vaping status: Never Used Substance Use Topics Alcohol use: Yes Comment: rare Drug use: No Current Outpatient Medications Medication Sig colestipol (COLESTID) 1 gram tablet PLEASE SEE ATTACHED FOR DETAILED DIRECTIONS methylPREDNISolone (MEDROL, MANOJ,) 4 mg Dose-Pack As instructed per package (Patient not taking: Reported on 10/30/2024) ezetimibe (ZETIA) 10 mg tablet Take 1 tablet by mouth every afternoon. dilTIAZem CD (CARDIZEM CD, CARTIA XT) 120 mg 24 hr capsule Take 1 capsule by mouth once daily. JARDIANCE 10 mg tablet URSODIOL ORAL Taking 300 mg daily losartan (COZAAR) 50 mg tablet Take 1 tablet by mouth every afternoon. ergocalciferol, vitamin D2, (VITAMIN D2 ORAL) Take 1,000 Units by mouth once daily. No current facility-administered medications for this visit. 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 All questions answered. There are no Patient Instructions on file for this visit. I spent a total of 20 minutes on the date of the service which included preparing to see the patient, [id number] patient care, completing clinical documentation, obtaining and/or reviewing separately obtained history, performing a medically appropriate examination, counseling and educating the patient/family/caregiver, ordering medications, tests, or procedures, communicating with other HCPs (not separately reported), independently interpreting results (not separately reported), communicating results to the patient/family/caregiver, and care coordination (not separately reported) Domonique Hoang, [facility]03-14-2025 History of Present illness Narrative* Domonique Hoang, DO - 11/22/2024 1:16 PM EDT VIRTUAL VISIT PROGRESS NOTE This is a virtual visit using Pre[employer] Zoom Video Visit. It required patient- provider interaction for the medical decision making as documented below. I have communicated my name and active licensure. The patient's identity and physical location wereverified at the time of this visit. Either the patient or their legal medical sales representative has been informed of the risks and benefits of -- and alternatives to -- treatment through a remote evaluation andconsents to proceed with the evaluation remotely. Ernestina Wade is a 54 year old female seen for bilateral knee pain left greater than right, stateshit or miss, multiple joint complaints, feels like something systemic going on. States no changes in med history but pain is inconsistent and can be very stiff in the morning.. Denies calf pain, numbness, tingling, fever, chills or other constitutional symptoms. HISTORY REVIEWED (electronic chart updated): PAST MEDICAL HISTORY Diagnosis Date Essential hypertension 02/16/2016 Since 2005. Family history of colon cancer 02/16/2016 Lateral epicondylitis of both elbows 02/16/2016 Medial epicondylitis of right elbow 02/16/2016 Menorrhagia submucous fibroids Non morbid obesity due to excess calories 02/16/2016 Prediabetes 02/16/2016 Skin cancer PAST SURGICAL HISTORY Procedure Laterality Date COLONOSCOPY FLX DX W/COLLJ SPEC WHEN PFRMD 11/18/2010 Colonoscopy COLONOSCOPY SCREENING 07/03/2020 repeat 5 years recommended LAPAROSCOPY SURG CHOLECYSTECTOMY 09/11/2000 Cholecystectomy, lap PAST SURGICAL HISTORY OF Right 2023 right calf skin cancer removal PAST SURGICAL HISTORY OF 2023 Skin cancer removed from right calf REVISE MEDIAN N/CARPAL TUNNEL SURG Left 07/16/2024 SALPINGECTOMY 03/06/2017 SHOULDER SURGERY HX Right 02/27/2019 SHOULDER SURGERY HX Left 09/17/2024 rotator cuff TOTAL ABDOM HYSTERECTOMY 03/06/2017 TUBAL LIGATION HX 09/11/2004 FAMILY HISTORY Problem Relation Age of Onset None Mother GI Father diverticulitis, recurrent Hypertension Father Diabetes Father Colon Cancer Father other (stomach cancer) Father No Known Problems Brother No Known Problems Brother Cancer Maternal Grandmother lung cancer Alzheimer's Disease Paternal Grandmother Colon Cancer Paternal Grandfather Dementia Maternal Aunt Social History Tobacco Use Smoking status: Never Smokeless tobacco: Never Vaping Use Vaping status: Never Used Substance Use Topics Alcohol use: Yes Comment: rare Drug use: No Current Outpatient Medications Medication Sig colestipol (COLESTID) 1 gram tablet PLEASE SEE ATTACHED FOR DETAILED DIRECTIONS methylPREDNISolone (MEDROL, MANOJ,) 4 mg Dose-Pack As instructed per package (Patient not taking: Reported on 10/30/2024) ezetimibe (ZETIA) 10 mg tablet Take 1 tablet by mouth every afternoon. dilTIAZem CD (CARDIZEM CD, CARTIA XT) 120 mg 24 hr capsule Take 1 capsule by mouth once daily. JARDIANCE 10 mg tablet URSODIOL ORAL Taking 300 mg daily losartan (COZAAR) 50 mg tablet Take 1 tablet by mouth every afternoon. ergocalciferol, vitamin D2, (VITAMIN D2 ORAL) Take 1,000 Units by mouth once daily. No current facility-administered medications for this visit. 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 All questions answered. There are no Patient Instructions on file for this visit. I spent a total of 20 minutes on the date of the service which included preparing to see the patient, [id number] patient care, completing clinical documentation, obtaining and/or reviewing separately obtained history, performing a medically appropriate examination, counseling and educating the pat ient/family/caregiver, ordering medications, tests, or procedures, communicating with other HCPs (not separately reported), independently interpreting results (not separately reported), communicatingresults to the patient/family/caregiver, and care coordination (not separately reported) Marimarmaribell Hoang DO documented in this encounterPrem[facility]03-[facility] Radiology Diagnostic study note [facility] Imaging Services [address] [place], [place] [id number] Knee 1 or 2 Views MR#: [id number] Acct: [id number] Name: ERNESTINA WADE Rep #: [id number] : 1970 F 54 From: Tanya Shepherd MD PCP: Dr. Chikis Montana MD Status: REG CLI Study:Knee 1 or 2 Views Date of Exam: Exam# [id number] Ordering Dr: Domonique Mo DO PROCEDURE: KNEE 1 OR 2 VIEWS; KNEES STANDING AP BILATERAL REASON FOR EXAM: Left knee pain. TECHNIQUE: AP and PA views of both knees as well as lateral and sunrise views of the left knee were obtained. COMPARISON: None. FINDINGS: Fracture/dislocation: None evidence of the absence of an AP view. Joint space(s): Mild loss of left patellofemoral and bilateral medial compartment joint space. Suspect subchondral cystic changes in the bilateral medial femoral condyles, [id number]-leiz-right. Soft tissues: Unremarkable. Foreign bodies: None visible. Bone mineralization: Grossly unremarkable. RAD/Knee 1 or 2 Views IMPRESSION: 1. No visible acute displaced fracture. 2. 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 3. Additional description as above. Reading Location: [facility] CC: Dr. Domonique Hoang DO; Dr. Chikis Montana MD ~ [place]: Signed [facility]03-05-2025 Radiology Diagnostic study note [facility] Imaging Services [address] [place] [address] Knees Standing AP Bilateral MR#: [id number] Acct: [id number] Name: ERNESTINA WADE Rep #: [id number] : 1970 F 54 From: Tanya Shepherd MD PCP: Dr. Chikis Montana MD Status: REG CLI Study:Knees Standing AP Bilateral Date of Exa m: 11/13/24 Exam# [id number] Ordering Dr: Charu Montana MD PROCEDURE: KNEE 1 OR 2 VIEWS; KNEES STANDING AP BILATERAL REASON FOR EXAM: Left knee pain. TECHNIQUE: AP and PA views of both knees as well as lateral and sunrise views of the left knee were obtained. COMPARISON: None. FINDINGS: Fracture/dislocation: None evidence of the absence of an AP view. Joint space(s): Mild loss of left patellofemoral and bilateral medial compartment joint space. Suspect subchondral cystic changes in the bilateral medial femoral condyles, axqq-jtygmin-rlqk-right. Soft tissues: Unremarkable. Foreign bodies: None visible. Bone mineralization: Grossly unremarkable. RAD/Knees Standing AP Bilateral IMPRESSION: 1. No visible acute displaced fracture. 2. 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 3. Additional description as above. Reading Location: [facility] CC: Dr. Chikis Montana MD ~ [place]: Signed [facility]02-26-2025 History of Present illness Narrative* Lilia De Luna RT(R) - 11/06/2024 8:15 AM EST Radiology Service Progress Note PATIENT NAME: Ernestina Wade DATE OF SERVICE: November 06, 2024 TIME: 8:58 AM PATIENT IDENTITY VERIFICATION COMPLETED USING TWO (2) IDENTIFIERS: Name and Date of confirmedby patient verbally. FALL SCREENING: Has the patient had 2 falls in the last year or 1 fall with injury or currently using an Ambulatory Assistive Device (Walker, Cane, Wheelchair, Crutches, etc.)? No PATIENT GENDER DATA: Assigned female at . status: : No status:NO. PATIENT RELEVANT IMPLANT DATA REVIEWED: Not Applicable PATIENT PRESENTS WITH AN IMPLANTABLE OR ATTACHED ADVANCED MANAGER: No RADIOLOGY DEPARTMENT: Mammography PERIPHERAL IV DATA: Not applicable SIGNED BY: RT Susie(R) November 06, 2024 8:58 AM documented in this encounterPrem[facility]02-26-2025 NoteHNO ID: [id number] Author: LILIA DE LUNA RT(R) Service: Radiology Author Type: Technologist Type: Progress Notes Filed: 11/06/2024 08:58 Note Text: Radiology Service Progress Note PATIENT NAME: Ernestina Wade DATE OF SERVICE: November 06, 2024 TIME: 8:58 AM PATIENT IDENTITY VERIFICATION COMPLETED USING TWO (2) IDENTIFIERS: Name and Date of confirmed by patient verbally. FALL SCREENING: Has the patient had 2 falls in the last year or 1 fall with injury or currently using an Ambulatory Assistive Device (Walker, Cane, Wheelchair, Crutches, etc.)? No PATIENT GENDER DATA: Assigned female at . status: : No status: NO. PATIENT RELEVANT IMPLANT DATA REVIEWED: Not Applicable PATIENT PRESENTS WITH AN IMPLANTABLE OR ATTACHED ADVANCED MANAGER: No RADIOLOGY DEPARTMENT: Mammography PERIPHERAL IV DATA: Not applicable SIGNED BY: RT Susie(Robin) November 06, 2024 8:58 [facility]02-19-2025 NoteHNO ID: [id number] Author: DOMONIQUE HOANG, DO Service: ? Author Type: Physician Type: Progress Notes Filed: 10/30/2024 09:38 Note Text: Follow Up Visit Chief Complaint Ernestina Wade is a 54 year old female who presents today for follow up office visit. Patient presents with: Left Shoulder - Post Op, Pain, Follow Up History of Present Illness PAIN EVALUATION 10/23/2024 1727 Pain Level: 1 Pain Location: Shoulder-Left Description: Sore;Stiffness Duration Amount of Time: 6 Duration Units: Weeks Frequency: Intermittent Intervention/Comfort measure: -- PT HPI: Ernestina Wade is a 54 year old female for a follow up visit 6 weeks s/p Left shoulder arthroscopy, rc debridement, biceps tenotomy, sad/acromioplasty on 09/17/2024. Patient states that she is doing very well. Will have some pain/stiffness in the morning. Currently in physical therapy and progressing. Pain history is noted as above. Is there any overall improvement in your condition? Yes, pain and function Any new injury, since being seen last: No REVIEW OF SYMPTOMS: Patient did not have, and does not currently have, any weight loss, malaise, fever, chills, headache, chest pain, chest pressure, palpitations, cough, shortness of breath, orthopnea, paroxsymal nocturnal dyspnea, nausea, vomiting, diarrhea, constipation, melena, hematochezia, urinary difficulties, prolonged bleeding, easily bruising, heat or cold intolerance, new onset joint pain or swelling, new onset extremity weakness or numbness, new onset auditory or visual disturbances, lightheadedness, dizziness, partial loss of consciousness or full loss of consciousness. Current Outpatient Medications Medication Sig colestipol (COLESTID) 1 gram tablet PLEASE SEE ATTACHED FOR DETAILED DIRECTIONS ezetimibe (ZETIA) 10 mg tablet Take 1 tablet by mouth every afternoon. dilTIAZem CD (CARDIZEM CD, CARTIA XT) 120 mg 24 hr capsule Take 1 capsule by mouth once daily. JARDIANCE 10 mg tablet URSODIOL ORAL Taking 300 mg daily losartan (COZAAR) 50 mg tablet Take 1 tablet by mouth every afternoon. ergocalciferol, vitamin D2, (VITAMIN D2 ORAL) Take 1,000 Units by mouth once daily. methylPREDNISolone (MEDROL, MANOJ,) 4 mg Dose-Pack As instructed per package (Patient not taking: Reported on 10/30/2024) No current facility-administered medications for this visit. Physical Exam Vitals: [facility] 03/21/2016 Psych: Pleasant, good affect and mood General Appearance: Well appearing, alert, in no acute distress, well-hydrated, well nourished.. Skin: Skin color, texture, turgor normal, no suspicious rashes or lesions. Peripheral Pulses: Normal. Neurologic: Gait normal. Reflexes normal and symmetric. Sensation grossly intact.. Lymph Nodes: No cervical lymphadenopathy, No supraclavicular lymphadenopathy, No axillary lymphadenopathy., and No inguinal lymphadenopathy.. Respiratory: No recent pulmonary infection, hemoptysis, chronic cough, or shortness of breath at rest Rheumatologic: Joint deformities: left shoulder Right Shoulder Exam Right shoulder exam is normal. Tenderness The patient is experiencing no tenderness. Range of Motion Active abduction: normal Passive abduction: normal Extension: normal External rotation: normal Forward flexion: normal Internal rotation 0 degrees: normal Internal rotation 90 degrees: normal Muscle Strength Abduction: 5/5 Internal rotation: 5/5 External rotation: 5/5 Supraspinatus: 5/5 Subscapularis: 5/5 Biceps: 5/5 Tests Apprehension: negative Werner test: negative Cross arm: negative Impingement: negative Other Erythema: absent Sensation: normal Pulse: present Comments: B/l med, uln, rad, ax nerves intact Left Shoulder Exam Tenderness The patient is experiencing no tenderness. Range of Motion Active abduction: normal Passive abduction: normal Extension: normal External rotation: normal Forward flexion: normal Internal rotation 0 degrees: normal Internal rotation 90 degrees: normal Muscle Strength Abduction: 5/5 Internal rotation: 5/5 External rotation: 5/5 Supraspinatus: 5/5 Subscapularis: 5/5 Biceps: 5/5 Tests Apprehension: negative Werner test: negative Cross arm: negative Impingement: negative Other Erythema: absent Sensation: normal Pulse: present Assessment and Plan Radiographs: I have reviewed the images with the patient and family. Impression: Encounter Diagnosis ICD-10-CM 1. Chronic pain of left knee M25.562 XR KNEE GENERAL 4V AP BOTH/PA BOTH/LAT/MERC LEFT G89.29 2. S/P shoulder surgery Z98.890 Today, in detail, through a thorough evaluation, we discussed possible etiologies of pain and our plans for further diagnostic and therapeutic interventions. We discussed strategies for decreasing pain and improving strength, stability and motion. Patient's questions were answered in detailed. Patient verbalizes understanding and agree (more content not included)... [facility] History of Present illness Narrative* Domonique Hoang DO - 10/30/2024 9:16 AM EST Images from the original note were not included. Follow Up Visit Chief Complaint Ernestina Wade is a 54 year old female who presents today for follow up office visit. Patient presents with: Left Shoulder - Post Op, Pain, Follow Up History of Present Illness PAIN EVALUATION 10/23/2024 1727 Pain Level: 1 Pain Location: Shoulder-Left Description: Sore;Stiffness Duration Amount of Time: 6 Duration Units: Weeks Frequency: Intermittent Intervention/Comfort measure: -- PT HPI: Ernestina Wade is a 54 year old female for a follow up visit 6 weeks s/p Left shoulder arthroscopy, rc debridement, biceps tenotomy, sad/acromioplasty on 09/17/2024. Patient states that she is doing very well. Will have some pain/stiffness in the morning. Currently in physical therapy and progressing. Pain history is noted as above. Is there any overall improvement in your condition? Yes, pain and function Any new injury, since being seen last: No REVIEW OF SYMPTOMS: Patient did not have, and does not currently have, any weight loss, malaise, fever, chills, headache, chest pain, chest pressure, palpitations, cough, shortness of breath, orthopnea, paroxsymal nocturnal dyspnea, nausea, vomiting, diarrhea, constipation, melena, hematochezia, urinary difficulties, prolonged bleeding, easily bruising, heat or cold intolerance, new onset joint pain or swelling, newonset extremity weakness or numbness, new onset auditory or visual disturbances, lightheadedness, dizziness, partial loss of consciousness or full loss of consciousness. Current Outpatient Medications Medication Sig colestipol (COLESTID) 1 gram tablet PLEASE SEE ATTACHED FOR DETAILED DIRECTIONS ezetimibe (ZETIA) 10 mg tablet Take 1 tablet by mouth every afternoon. dilTIAZem CD (CARDIZEM CD, CARTIA XT) 120 mg 24 hr capsule Take 1 capsule by mouth once daily. JARDIANCE 10 mg tablet URSODIOL ORAL Taking 300 mg daily losartan (COZAAR) 50 mg tablet Take 1 tablet by mouth every afternoon. ergocalciferol, vitamin D2, (VITAMIN D2 ORAL) Take 1,000 Units by mouth once daily. methylPREDNISolone (MEDROL, MANOJ,) 4 mg Dose-Pack As instructed per package (Patient not taking: Reported on 10/30/2024) No current facility-administered medications for this visit. Physical Exam Vitals: LMP 03/21/2016 Psych: Pleasant, good affect and mood General Appearance: Well appearing, alert, in no acute distress, well-hydrated, well nourished.. Skin: Skin color, texture, turgor normal, no suspicious rashes or lesions. Peripheral Pulses: Normal. Neurologic: Gait normal. Reflexes normal and symmetric. Sensation grossly intact.. Lymph Nodes: No cervical lymphadenopathy, No supraclavicular lymphadenopathy, No axillary lymphadenopathy., and No inguinal lymphadenopathy.. Respiratory: No recent pulmonary infection, hemoptysis, chronic cough, or shortness of breath at rest Rheumatologic: Joint deformities: left shoulder Right Shoulder Exam Right shoulder exam is normal. Tenderness The patient is experiencing no tenderness. Range of Motion Active abduction: normal Passive abduction: normal Extension: normal External rotation: normal Forward flexion: normal Internal rotation 0 degrees: normal Internal rotation 90 degrees: normal Muscle Strength Abduction: 5/5 Internal rotation: 5/5 External rotation: 5/5 Supraspinatus: 5/5 Subscapularis: 5/5 Biceps: 5/5 Tests Apprehension: negative Werner test: negative Cross arm: negative Impingement: negative Other Erythema: absent Sensation: normal Pulse: present Comments: B/l med, uln, rad, ax nerves intact Left Shoulder Exam Tenderness The patient is experiencing no tenderness. Range of Motion Active abduction: normal Passive abduction: normal Extension: normal External rotation: normal Forward flexion: normal Internal rotation 0 degrees: normal Internal rotation 90 degrees: normal Muscle Strength Abduction: 5/5 Internal rotation: 5/5 External rotation: 5/5 Supraspinatus: 5/5 Subscapularis: 5/5 Biceps: 5/5 Tests Apprehension: negative Werner test: negative Cross arm: negative Impingement: negative Other Erythema: absent Sensation: normal Pulse: present Assessment and Plan Radiographs: I have reviewed the images with the patient and family. Impression: Encounter Diagnosis ICD-10-CM 1. Chronic pain of left knee M25.562 XR KNEE GENERAL 4V AP BOTH/PA BOTH/LAT/MERC LEFT G89.29 2. S/P shoulder surgery Z98.890 Today, in detail, through a thorough evaluation, we discussed possible etiologies of pain and our plans for further diagnostic and therapeutic interventions. We discussed strategies for decreasing pain and improving strength, stability and motion. Patient's questions were answered in detailed. Patient verbalizes understanding and agrees with the treatment plan as discussed. Doing well Voltchristianen gel to area Has pcp meeting and will discuss possible gout/ inflamm of joints On way out will schedule vv for knee and xrays of left knee can be done at [facility] X[facility] ordered Patient aware and in agreement of plan. All questions answered. Domonique Payan.Santosh. M.P.H. documented in this encounterPrem[facility] NoteHNO ID: [id number] Author: YESENIA COLE APRN.INSPECTOR PRECISION [employer]SEMBLY Service: ? Author Type: Nurse Practitioner Type: Progress Notes Filed: 10/17/2024 10:21 Note Text: Ernestina Wade is a 54 year old female who presents for problem visit right breast lump for 5 days. HPI: Patient noticed a small lump near the right areola over this past weekend. She denies any pain, fevers, chills, redness, or warmth to the area. Patient does had a normal mammogram in August 2024, she did not have this lump at that. 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 Family history of colon cancer 02/16/2016 Lateral epicondylitis of both elbows 02/16/2016 Medial epicondylitis of right elbow 02/16/2016 Menorrhagia submucous fibroids Non morbid obesity due to excess calories 02/16/2016 Prediabetes 02/16/2016 Skin cancer PAST SURGICAL HISTORY Procedure Laterality Date COLONOSCOPY FLX DX W/COLLJ SPEC WHEN PFRMD 11/18/2010 Colonoscopy COLONOSCOPY SCREENING 07/03/2020 repeat 5 years recommended LAPAROSCOPY SURG CHOLECYSTECTOMY 09/11/2000 Cholecystectomy, lap PAST SURGICAL HISTORY OF Right 2023 right calf skin cancer removal PAST SURGICAL HISTORY OF 2023 Skin cancer removed from right calf [facility] N/CARPAL TUNNEL SURG Left 07/16/2024 SALPINGECTOMY 03/06/2017 SHOULDER SURGERY HX Right 02/27/2019 SHOULDER SURGERY HX Left 09/17/2024 rotator cuff TOTAL ABDOM HYSTERECTOMY 03/06/2017 TUBAL LIGATION HX 09/11/2004 FAMILY HISTORY Problem Relation Age of Onset None Mother GI Father diverticulitis, recurrent Hypertension Father Diabetes Father Colon Cancer Father other (stomach cancer) Father No Known Problems Brother No Known Problems Brother Cancer Maternal Grandmother lung cancer Alzheimer's Disease Paternal Grandmother Colon Cancer Paternal Grandfather Dementia Maternal Aunt Social History Tobacco Use Smoking status: Never Smokeless tobacco: Never Vaping Use Vaping status: Never Used Substance Use Topics Alcohol use: Yes Comment: rare Drug use: No Current Outpatient Medications Medication Sig colestipol (COLESTID) 1 gram tablet PLEASE SEE ATTACHED FOR DETAILED DIRECTIONS ezetimibe (ZETIA) 10 mg tablet Take 1 tablet by mouth every afternoon. dilTIAZem CD (CARDIZEM CD, CARTIA XT) 120 mg 24 hr capsule Take 1 capsule by mouth once daily. JARDIANCE 10 mg tablet URSODIOL ORAL Taking 300 mg daily losartan (COZAAR) 50 mg tablet Take 1 tablet by mouth every afternoon. ergocalciferol, vitamin D2, (VITAMIN D2 ORAL) Take 1,000 Units by mouth once daily. methylPREDNISolone (MEDROL, MANOJ,) 4 mg Dose-Pack As instructed per package zolpidem (AMBIEN) 5 mg tablet Take 1 tablet by mouth at bedtime as needed for up to 7 days. (Patient not taking: Reported on 10/17/2024) No current facility-administered medications for this visit. Allergies As of Date: 10/17/2024 Allergen Noted Reaction REGLAN [METOCLOPRAMIDE HCL] 12/15/2015 Mental Status Change Fully Assessed 10/17/2024 REVIEW OF SYSTEMS Breast: see HPI. Expanded ROS: N/A Allergies and current medication updated:Yes SENSITIVE EXAM: The sensitive examination was discussed with the Patient or Patient's Authorized Review Manager. As applicable, any other physician, advance practice provider, medical student, or other health professional student that will be observing or involved in the sensitive examination for educational or training purposes was discussed with the Patient or Authorized Review Manager. The Patient or Authorized Review Manager has agreed to proceed with the sensitive examination. (Sensitive examination includes inspection and/or palpation of the breasts, pelvis, prostate and anorectal regions). EXAM: BP 138/94 Wt 228 lb (103.4kg) LMP 03/21/2016 GENERAL: pleasant, female in no apparent distress HEENT: Normocephalic, atraumatic, mucus membranes moist, and no lesions BREAST: soft, non-tender, symmetric, normal nipple-areolar complex, no lymphadenopathy, no nipple discharge, and on the top of the right areolar there is a small visible lump in the sitting position- the lump is not seen in the lying position but is felt CHEST: Normal inspiratory effort NEURO: alert and oriented x3,exam grossly non-focal EXTREMITIES: normal ASSESSMENT AND PLAN: Assessment AND Plan Subareolar mass of right breast Orders: [facility] RIGHT; Future US BREAST LTD RIGHT; Future Yesenia Cole APRN.CNP Medical Decision Making: Problems: Moderate: New problem with uncertain prognosis Data: Unique test(s) ordered: 2 Risk: Low: Low risk from testing/treatment Medical Decision Making (more content not included)...[facility] 10-17-[facility] History of Present illness Narrative* Yesenia Cole APRN.CNP - 10/17/2024 9:46 AM EST Ernestina Wade is a 54 year old female who presents for problem visit right breast lump for 5 days. HPI: Patient noticed a small lump near the right areola over this past weekend. She denies any pain, fevers, chills, redness, or warmth to the area. Patient does had a normal mammogram in August 2024, she did not have this lump at that. 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 Family history of colon cancer 02/16/2016 Lateral epicondylitis of both elbows 02/16/2016 Medial epicondylitis of right elbow 02/16/2016 Menorrhagia submucous fibroids Non morbid obesity due to excess calories 02/16/2016 Prediabetes 02/16/2016 Skin cancer PAST SURGICAL HISTORY Procedure Laterality Date COLONOSCOPY FLX DX W/COLLJ SPEC WHEN PFRMD 11/18/2010 Colonoscopy COLONOSCOPY SCREENING 07/03/2020 repeat 5 years recommended LAPAROSCOPY SURG CHOLECYSTECTOMY 09/11/2000 Cholecystectomy, lap PAST SURGICAL HISTORY OF Right 2023 right calf skin cancer removal PAST SURGICAL HISTORY OF 2023 Skin cancer removed from right calf [facility] N/CARPAL TUNNEL SURG Left 07/16/2024 SALPINGECTOMY 03/06/2017 SHOULDER SURGERY HX Right 02/27/2019 SHOULDER SURGERY HX Left 09/17/2024 rotator cuff TOTAL ABDOM HYSTERECTOMY 03/06/2017 TUBAL LIGATION HX 09/11/2004 FAMILY HISTORY Problem Relation Age of Onset None Mother GI Father diverticulitis, recurrent Hypertension Father Diabetes Father Colon Cancer Father other (stomach cancer) Father No Known Problems Brother No Known Problems Brother Cancer Maternal Grandmother lung cancer Alzheimer's Disease Paternal Grandmother Colon Cancer Paternal Grandfather Dementia Maternal Aunt Social History Tobacco Use Smoking status: Never Smokeless tobacco: Never Vaping Use Vaping status: Never Used Substance Use Topics Alcohol use: Yes Comment: rare Drug use: No Current Outpatient Medications Medication Sig colestipol (COLESTID) 1 gram tablet PLEASE SEE ATTACHED FOR DETAILED DIRECTIONS ezetimibe (ZETIA) 10 mg tablet Take 1 tablet by mouth every afternoon. dilTIAZem CD (CARDIZEM CD, CARTIA XT) 120 mg 24 hr capsule Take 1 capsule by mouth once daily. JARDIANCE 10 mg tablet URSODIOL ORAL Taking 300 mg daily losartan (COZAAR) 50 mg tablet Take 1 tablet by mouth every afternoon. ergocalciferol, vitamin D2, (VITAMIN D2 ORAL) Take 1,000 Units by mouth once daily. methylPREDNISolone (MEDROL, MANOJ,) 4 mg Dose-Pack As instructed per package zolpidem (AMBIEN) 5 mg tablet Take 1 tablet by mouth at bedtime as needed for up to 7 days. (Patient not taking: Reported on 10/17/2024) No current facility-administered medications for this visit. Allergies As of Date: 10/17/2024 Allergen Noted Reaction REGLAN [METOCLOPRAMIDE HCL] 12/15/2015 Mental Status Change Fully Assessed 10/17/2024 REVIEW OF SYSTEMS Breast: see HPI. Expanded ROS: N/A Allergies and current medication updated:Yes SENSITIVE EXAM: The sensitive examination was discussed with the Patient or Patient's Authorized Review Manager. As applicable, any other physician, advance practice provider, medical student, or other health professional student that will be observing or involved in the sensitive examination for educational or training purposes was discussed with the Patient or Authorized Review Manager. The Patient or Authorized Review Manager has agreed to proceed with the sensitive examination. (Sensitive examination includes inspection and/or palpation of the breasts, pelvis, prostate and anorectal regions). EXAM: BP 138/94 Wt 228 lb (103.4kg) LMP 03/21/2016 GENERAL: pleasant, female in no apparent distress HEENT: Normocephalic, atraumatic, mucus membranes moist, and no lesions BREAST: soft, non-tender, symmetric, normal nipple-areolar complex, no lymphadenopathy, no nipple discharge, and on the top of the right areolar there is a small visible lump in the sitting position-the lump is not seen in the lying position but is felt CHEST: Normal inspiratory effort NEURO: alert and oriented x3,exam grossly non-focal EXTREMITIES: normal ASSESSMENT AND PLAN: Assessment & Plan Subareolar mass of right breast Orders: [facility] RIGHT; Future US BREAST LTD RIGHT; Future Yesenia Cole APRN.CNP Medical Decision Making: Problems: Moderate: New problem with uncertain prognosis Data: Unique test(s) ordered: 2 Risk: Low: Low risk from testing/treatment Medical Decision Making Level: 3 - Low documented in this encounterPrem[facility]25 NoteHNO ID: [id number] Author: YURY STEEL MD Service: ? 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 Ernestina Wade is a 54 year old female who presents for follow up. HPI: Doing well. No fevers, chills, malaise. The lump has decreased in size, and the pain has resolved. No longer draining. Finished course of Keflex. 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 Family history of colon cancer 02/16/2016 Lateral epicondylitis of both elbows 02/16/2016 Medial epicondylitis of right elbow 02/16/2016 Menorrhagia submucous fibroids Non morbid obesity due to excess calories 02/16/2016 Prediabetes 02/16/2016 Skin cancer PAST SURGICAL HISTORY Procedure Laterality Date COLONOSCOPY FLX DX W/COLLJ SPEC WHEN PFRMD 11/18/2010 Colonoscopy COLONOSCOPY SCREENING 07/03/2020 repeat 5 years recommended LAPAROSCOPY SURG CHOLECYSTECTOMY 09/11/2000 Cholecystectomy, lap PAST SURGICAL HISTORY OF Right 2023 right calf skin cancer removal PAST SURGICAL HISTORY OF 2023 Skin cancer removed from right calf [facility] N/CARPAL TUNNEL SURG Left 07/16/2024 SALPINGECTOMY 03/06/2017 SHOULDER SURGERY HX Right 02/27/2019 TOTAL ABDOM HYSTERECTOMY 03/06/2017 TUBAL LIGATION HX 09/11/2004 FAMILY HISTORY Problem Relation Age of Onset None Mother GI Father diverticulitis, recurrent Hypertension Father Diabetes Father Colon Cancer Father other (stomach cancer) Father No Known Problems Brother No Known Problems Brother Cancer Maternal Grandmother lung cancer Alzheimer's Disease Paternal Grandmother Colon Cancer Paternal Grandfather Dementia Maternal Aunt Social History Tobacco Use Smoking status: Never Smokeless tobacco: Never Vaping Use Vaping status: Never Used Substance Use Topics Alcohol use: Yes Comment: rare Drug use: No Current Outpatient Medications Medication Sig methylPREDNISolone (MEDROL, MANOJ,) 4 mg Dose-Pack As instructed per package ezetimibe (ZETIA) 10 mg tablet Take 1 tablet by mouth every afternoon. dilTIAZem CD (CARDIZEM CD, CARTIA XT) 120 mg 24 hr capsule Take 1 capsule by mouth once daily. JARDIANCE 10 mg tablet URSODIOL ORAL Taking 300 mg daily losartan (COZAAR) 50 mg tablet Take 1 tablet by mouth every afternoon. ergocalciferol, vitamin D2, (VITAMIN D2 ORAL) Take 1,000 Units by mouth once daily. zolpidem (AMBIEN) 5 mg tablet Take 1 tablet by mouth at bedtime as needed for up to 7 days. No current facility-administered medications for this visit. Allergies As of Date: 10/10/2024 Allergen Noted Reaction REGLAN [METOCLOPRAMIDE HCL] 12/15/2015 Mental Status Change Fully Assessed 10/10/2024 REVIEW OF SYSTEMS Expanded ROS: See HPI. Allergies and current medication updated:Yes SENSITIVE EXAM: The sensitive examination was discussed with the Patient or Patient's Authorized Review Manager. As applicable, any other physician, advance practice provider, medical student, or other health professional student that will be observing or involved in the sensitive examination for educational or training purposes was discussed with the Patient or Authorized Review Manager. The Patient or Authorized Review Manager has agreed to proceed with the sensitive examination. (Sensitive examination includes inspection and/or palpation of the breasts, pelvis, prostate and anorectal regions). EXAM: BP 120/80 Wt 226 lb 9.6 oz (102.8kg) LMP 03/21/2016 GENERAL: pleasant, female in no apparent distress HEENT: Normocephalic and atraumatic NECK: full range of motion CHEST: Normal inspiratory effort PELVIC: Erythema has resolved. There is no swelling, redness, fluctuance, drainage. There is a pea sized firmness palpated in the right labia majora where the abscess has resolved. NEURO: exam grossly non-focal EXTREMITIES: normal ASSESSMENT AND PLAN: Assessment AND Plan Labial abscess Completed Keflex course. Abscess resolved. Discussed vulvar care and hygiene measures. Reviewed reasons to call. 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 Ernestina Wade is a 54 year old female who presents for follow up. HPI: Doing well. No fevers, chills, malaise. The lump has decreased in size, and the pain has resolved. No longer draining. Finished course of Keflex. 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 Family history of colon cancer 02/16/2016 Lateral epicondylitis of both elbows 02/16/2016 Medial epicondylitis of right elbow 02/16/2016 Menorrhagia submucous fibroids Non morbid obesity due to excess calories 02/16/2016 Prediabetes 02/16/2016 Skin cancer PAST SURGICAL HISTORY Procedure Laterality Date COLONOSCOPY FLX DX W/COLLJ SPEC WHEN PFRMD 11/18/2010 Colonoscopy COLONOSCOPY SCREENING 07/03/2020 repeat 5 years recommended LAPAROSCOPY SURG CHOLECYSTECTOMY 09/11/2000 Cholecystectomy, lap PAST SURGICAL HISTORY OF Right 2023 right calf skin cancer removal PAST SURGICAL HISTORY OF 2023 Skin cancer removed from right calf RE[facility]ISE MEDIAN N/CARPAL TUNNEL SURG Left 07/16/2024 SALPINGECTOMY 03/06/2017 SHOULDER SURGERY HX Right 02/27/2019 TOTAL ABDOM HYSTERECTOMY 03/06/2017 TUBAL LIGATION HX 09/11/2004 FAMILY HISTORY Problem Relation Age of Onset None Mother GI Father diverticulitis, recurrent Hypertension Father Diabetes Father Colon Cancer Father other (stomach cancer) Father No Known Problems Brother No Known Problems Brother Cancer Maternal Grandmother lung cancer Alzheimer's Disease Paternal Grandmother Colon Cancer Paternal Grandfather Dementia Maternal Aunt Social History Tobacco Use Smoking status: Never Smokeless tobacco: Never Vaping Use Vaping status: Never Used Substance Use Topics Alcohol use: Yes Comment: rare Drug use: No Current Outpatient Medications Medication Sig methylPREDNISolone (MEDROL, MANOJ,) 4 mg Dose-Pack As instructed per package ezetimibe (ZETIA) 10 mg tablet Take 1 tablet by mouth every afternoon. dilTIAZem CD (CARDIZEM CD, CARTIA XT) 120 mg 24 hr capsule Take 1 capsule by mouth once daily. JARDIANCE 10 mg tablet URSODIOL ORAL Taking 300 mg daily losartan (COZAAR) 50 mg tablet Take 1 tablet by mouth every afternoon. ergocalciferol, vitamin D2, (VITAMIN D2 ORAL) Take 1,000 Units by mouth once daily. zolpidem (AMBIEN) 5 mg tablet Take 1 tablet by mouth at bedtime as needed for up to 7 days. No current facility-administered medications for this visit. Allergies As of Date: 10/10/2024 Allergen Noted Reaction REGLAN [METOCLOPRAMIDE HCL] 12/15/2015 Mental Status Change Fully Assessed 10/10/2024 REVIEW OF SYSTEMS Expanded ROS: See HPI. Allergies and current medication updated:Yes SENSITIVE EXAM: The sensitive examination was discussed with the Patient or Patient's Authorized Review Manager. As applicable, any other physician, advance practice provider, medical student, or other health professional student that will be observing or involved in the sensitive examination for educational or training purposes was discussed with the Patient or Authorized Review Manager. The Patient or Authorized Review Manager has agreed to proceed with the sensitive examination. (Sensitive examination includes inspection and/or palpation of the breasts, pelvis, prostate and anorectal regions). EXAM: BP 120/80 Wt 226 lb 9.6 oz (102.8kg) LMP 03/21/2016 GENERAL: pleasant, female in no apparent distress HEENT: Normocephalic and atraumatic NECK: full range of motion CHEST: Normal inspiratory effort PELVIC: Erythema has resolved. There is no swelling, redness, fluctuance, drainage. There is a pea sized firmness palpated in the right labia majora where the abscess has resolved. NEURO: exam grossly non-focal EXTREMITIES: normal ASSESSMENT AND PLAN: Assessment & Plan Labial abscess Completed Keflex course. Abscess resolved. Discussed vulvar care and hygiene measures. Reviewed reasons to call. Yury Steel DO Medical Decision Making: Problems: Low: Acute, uncomplicated illness or injury Medical Decision Making Level: 2 - Straightforward documented in this encounter[facility]25 NoteHNO ID: [id number] Author: YURY STEEL MD Service: ? 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 Ernestina Wade is a 54 year old female who presents for problem visit - labial mass. HPI: About 1 week ago she noticed a lump over her right labia majora that was increasing in size. Yesterday it opened and drained a large amount of bloody fluid. She still notices a smaller lump at that site. No fevers, chills, nausea, vomiting. She has never had anything like this before. She recently had shoulder surgery, and reports bladder incontinence and was wearing a pad for 2 days in a row and unable to shower due to surgery which she suspects could have triggered this. 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 Family history of colon cancer 02/16/2016 Lateral epicondylitis of both elbows 02/16/2016 Medial epicondylitis of right elbow 02/16/2016 Menorrhagia submucous fibroids Non morbid obesity due to excess calories 02/16/2016 Prediabetes 02/16/2016 Skin cancer PAST SURGICAL HISTORY Procedure Laterality Date COLONOSCOPY FLX DX W/COLLJ SPEC WHEN PFRMD 11/18/2010 Colonoscopy COLONOSCOPY SCREENING 07/03/2020 repeat 5 years recommended LAPAROSCOPY SURG CHOLECYSTECTOMY 09/11/2000 Cholecystectomy, lap PAST SURGICAL HISTORY OF Right 2023 right calf skin cancer removal PAST SURGICAL HISTORY OF 2023 Skin cancer removed from right calf REVISE MEDIAN N/CARPAL TUNNEL SURG Left 07/16/2024 SALPINGECTOMY 03/06/2017 SHOULDER SURGERY HX Right 02/27/2019 TOTAL ABDOM HYSTERECTOMY 03/06/2017 TUBAL LIGATION HX 09/11/2004 FAMILY HISTORY Problem Relation Age of Onset None Mother GI Father diverticulitis, recurrent Hypertension Father Diabetes Father Colon Cancer Father other (stomach cancer) Father No Known Problems Brother No Known Problems Brother Cancer Maternal Grandmother lung cancer Alzheimer's Disease Paternal Grandmother Colon Cancer Paternal Grandfather Dementia Maternal Aunt Social History Tobacco Use Smoking status: Never Smokeless tobacco: Never Vaping Use Vaping status: Never Used Substance Use Topics Alcohol use: Yes Comment: rare Drug use: No Current Outpatient Medications Medication Sig methylPREDNISolone (MEDROL, MANOJ,) 4 mg Dose-Pack As instructed per package HYDROcodone-acetaminophen (NORCO) 5-325 mg per tablet Take 1 tablet by mouth every 8 hours as needed for pain for up to 7 days. ezetimibe (ZETIA) 10 mg tablet Take 1 tablet by mouth every afternoon. dilTIAZem CD (CARDIZEM CD, CARTIA XT) 120 mg 24 hr capsule Take 1 capsule by mouth once daily. JARDIANCE 10 mg tablet URSODIOL ORAL Taking 300 mg daily losartan (COZAAR) 50 mg tablet Take 1 tablet by mouth every afternoon. ergocalciferol, vitamin D2, (VITAMIN D2 ORAL) Take 1,000 Units by mouth once daily. zolpidem (AMBIEN) 5 mg tablet Take 1 tablet by mouth at bedtime as needed for up to 7 days. No current facility-administered medications for this visit. Allergies As of Date: 10/03/2024 Allergen Noted Reaction REGLAN [METOCLOPRAMIDE HCL] 12/15/2015 Mental Status Change Fully Assessed 10/03/2024 REVIEW OF SYSTEMS Expanded ROS: See HPI. Allergies and current medication updated:Yes SENSITIVE EXAM: The sensitive examination was discussed with the Patient or Patient's Authorized Review Manager. As applicable, any other physician, advance practice provider, medical student, or other health professional student that will be observing or involved in the sensitive examination for educational or training purposes was discussed with the Patient or Authorized Review Manager. The Patient or Authorized Review Manager has agreed to proceed with the sensitive examination. (Sensitive examination includes inspection and/or palpation of the breasts, pelvis, prostate and anorectal regions). EXAM: BP 130/88 Wt 231 lb 9.6 oz (105.1kg) LMP 03/21/2016 GENERAL: pleasant, female in no apparent distress HEENT: Normocephalic and atraumatic NECK: full range of motion CHEST: Normal inspiratory effort PELVIC: There is a firm 1x1 cm area over the right labia major with surrounding erythema and edema with an area draining yellow fluid. No fluctuance NEURO: exam grossly non-focal EXTREMITIES: normal ASSESSMENT AND PLAN: Assessment AND Plan Vulvar abscess Vulvar cellulitis Orders: cephALEXin (KEFLEX) 500 mg capsule; Take 1 capsule by mouth four times daily for 5 days. The vulvar abscess has opened and drained, and continues to drain a small amount. Unable to prescribe Bactrim given me (more content not included)... 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 Ernestina Wade is a 54 year old female who presents for problem visit - labial mass. HPI: About 1 week ago she noticed a lump over her right labia majora that was increasing in size. Yesterday it opened and drained a large amount of bloody fluid. She still notices a smaller lump at that site. No fevers, chills, nausea, vomiting. She has never had anything like this before. She recently had shoulder surgery, and reports bladder incontinence and was wearing a pad for 2 days in a row and unable to shower due to surgery which she suspects could have triggered this. 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 Family history of colon cancer 02/16/2016 Lateral epicondylitis of both elbows 02/16/2016 Medial epicondylitis of right elbow 02/16/2016 Menorrhagia submucous fibroids Non morbid obesity due to excess calories 02/16/2016 Prediabetes 02/16/2016 Skin cancer PAST SURGICAL HISTORY Procedure Laterality Date COLONOSCOPY FLX DX W/COLLJ SPEC WHEN PFRMD 11/18/2010 Colonoscopy COLONOSCOPY SCREENING 07/03/2020 repeat 5 years recommended LAPAROSCOPY SURG CHOLECYSTECTOMY 09/11/2000 Cholecystectomy, lap PAST SURGICAL HISTORY OF Right 2023 right calf skin cancer removal PAST SURGICAL HISTORY OF 2023 Skin cancer removed from right calf REVISE MEDIAN N/CARPAL TUNNEL SURG Left 07/16/2024 SALPINGECTOMY 03/06/2017 SHOULDER SURGERY HX Right 02/27/2019 TOTAL ABDOM HYSTERECTOMY 03/06/2017 TUBAL LIGATION HX 09/11/2004 FAMILY HISTORY Problem Relation Age of Onset None Mother GI Father diverticulitis, recurrent Hypertension Father Diabetes Father Colon Cancer Father other (stomach cancer) Father No Known Problems Brother No Known Problems Brother Cancer Maternal Grandmother lung cancer Alzheimer's Disease Paternal Grandmother Colon Cancer Paternal Grandfather Dementia Maternal Aunt Social History Tobacco Use Smoking status: Never Smokeless tobacco: Never Vaping Use Vaping status: Never Used Substance Use Topics Alcohol use: Yes Comment: rare Drug use: No Current Outpatient Medications Medication Sig methylPREDNISolone (MEDROL, MANOJ,) 4 mg Dose-Pack As instructed per package HYDROcodone-acetaminophen (NORCO) 5-325 mg per tablet Take 1 tablet by mouth every 8 hours as needed for pain for up to 7 days. ezetimibe (ZETIA) 10 mg tablet Take 1 tablet by mouth every afternoon. dilTIAZem CD (CARDIZEM CD, CARTIA XT) 120 mg 24 hr capsule Take 1 capsule by mouth once daily. JARDIANCE 10 mg tablet URSODIOL ORAL Taking 300 mg daily losartan (COZAAR) 50 mg tablet Take 1 tablet by mouth every afternoon. ergocalciferol, vitamin D2, (VITAMIN D2 ORAL) Take 1,000 Units by mouth once daily. zolpidem (AMBIEN) 5 mg tablet Take 1 tablet by mouth at bedtime as needed for up to 7 days. No current facility-administered medications for this visit. Allergies As of Date: 10/03/2024 Allergen Noted Reaction REGLAN [METOCLOPRAMIDE HCL] 12/15/2015 Mental Status Change Fully Assessed 10/03/2024 REVIEW OF SYSTEMS Expanded ROS: See HPI. Allergies and current medication updated:Yes SENSITIVE EXAM: The sensitive examination was discussed with the Patient or Patient's Authorized Review Manager. As applicable, any other physician, advance practice provider, medical student, or other health professional student that will be observing or involved in the sensitive examination for educational or training purposes was discussed with the Patient or Authorized Review Manager. The Patient or Authorized Review Manager has agreed to proceed with the sensitive examination. (Sensitive examination includes inspection and/or palpation of the breasts, pelvis, prostate and anorectal regions). EXAM: BP 130/88 Wt 231 lb 9.6 oz (105.1kg) LMP 03/21/2016 GENERAL: pleasant, female in no apparent distress HEENT: Normocephalic and atraumatic NECK: full range of motion CHEST: Normal inspiratory effort PELVIC: There is a firm 1x1 cm area over the right labia major with surrounding erythema and edema with an area draining yellow fluid. No fluctuance NEURO: exam grossly non-focal EXTREMITIES: normal ASSESSMENT AND PLAN: Assessment & Plan Vulvar abscess Vulvar cellulitis Orders: cephALEXin (KEFLEX) 500 mg capsule; Take 1 capsule by mouth four times daily for 5 days. The vulvar abscess has opened and drained, and continues to drain a small amount. Unable to prescribe Bactrim given medication interaction with losartan. Course of Keflex given. Cont warm compresses and Epsom salt baths. RTO 1 week for follow up, and call sooner if worsening. Yury Steel DO Medical Decision Making: Problems: Low: Acute, uncomplicated illness or injury Risk: Low: Low risk from testing/treatment Moderate: Drug management Medical Decision Making Level: 3 - Low documented in this encounter[facility]25 NoteHNO ID: [id number] Author: ANTHONY STONE PA-C Service: ? Author Type: Physician Retort Or Condenser Press Operator Type: Progress Notes Filed: 09/30/2024 13:01 Note Text: POST OP Dave Stone PA-C Orthopaedics [address] [address] Dept: [phone] Ms. Wade presents today for her 10-14 day visit from: left shoulder arthroscopic RC debridement, biceps tenotomy, and SAD/acromioplasty on 09/17/[address] Hoang. History: PAIN EVALUATION 09/29/2024 1628 Pain Level: 3 Description: Aching;Burning;Dull;Itching Duration Units: Minutes Frequency: Intermittent Intervention/Comfort measure: Medication;Reposition;Cold Comments: Rash/ itchy taking benedryl She is doing well postoperatively. Patients rates her condition as improving. The patient discontinued her sling on POD3 but reports she has not been using her left arm very much since surgery. She reports itchy rash on left shoulder. She washed the area well and is taking benadryl and topical steroid with improvement. She is requesting PO steroid for the rash. The patient denies warmth, discharge, drainage, fevers, chills, sweats. She reports compliance with wound care. The patient stopped taking percocet. She is requesting a pain medication that is not as strong as percocet for PT. She reports no change in past medical AND surgical history, medications, allergies, social history, family history and review of systems since last visit, with the exception of the following: None Review of Systems Radiographs: Not applicable Physical Examination: Left shoulder: Appropriate postop appearance No evidence of erythema, warmth, discharge or drainage Incisions are clean/dry/intact Mild contact dermatitis over shoulder in the distribution of skin prep No tenderness about the greater tuberosity, lesser tuberosity, AC joint. mild tenderness about the bicipital groove Active forward flexion 60? degrees Positive axillary, musculocutaneous, median, ulna, and radial nerve function Positive distal pulses Assessment and Plan: 54 year old female 2 weeks S/P left shoulder arthroscopic RC debridement, biceps tenotomy, and SAD/acromioplasty Medrol dose pack issued for pruritic rash ; discussed conservative treatment [place] issued for pain control Begin physical therapy Begin using operative arm and advance activities as tolerated Post op care discussed, all questions answered. OARRS reviewed - Patient is taking medication appropriately, will refill rx. Follow up in 4 weeks for repeat clinical evaluation with Dr. Viktor Stone [facility] of Present illness Narrative* Anthony Stone PA-C - 09/30/2024 10:42 AM EST Images from the original note were not included. POST OP Dave Stone PA-C Orthopaedics [address] [address] Dept: [phone] Ms. Wade presents today for her 10-14 day visit from: left shoulder arthroscopic RC debridement, biceps tenotomy, and SAD/acromioplasty on 09/17/[address] Hoang. History: PAIN EVALUATION 09/29/2024 1628 Pain Level: 3 Description: Aching;Burning;Dull;Itching Duration Units: Minutes Frequency: Intermittent Intervention/Comfort measure: Medication;Reposition;Cold Comments: Rash/ itchy taking benedryl She is doing well postoperatively. Patients rates her condition as improving. The patient discontinued her sling on POD3 but reports she has not been using her left arm very much since surgery. She reports itchy rash on left shoulder. She washed the area well and is taking benadryl and topical steroid with improvement. She is requesting PO steroid for the rash. The patient denies warmth, discharge, drainage, fevers, chills, sweats. She reports compliance with wound care. The patient stopped taking percocet. She is requesting a pain medication that is not as strong as percocet for PT. She reports no change in past medical & surgical history, medications, allergies, social history, family history and review of systems since last visit, with the exception of the following: None Review of Systems Radiographs: Not applicable Physical Examination: Left shoulder: Appropriate postop appearance No evidence of erythema, warmth, discharge or drainage Incisions are clean/dry/intact Mild contact dermatitis over shoulder in the distribution of skin prep No tenderness about the greater tuberosity, lesser tuberosity, AC joint. mild tenderness about the bicipital groove Active forward flexion 60 degrees Positive axillary, musculocutaneous, median, ulna, and radial nerve function Positive distal pulses Assessment and Plan: 54 year old female 2 weeks S/P left shoulder arthroscopic RC debridement, biceps tenotomy, and SAD/acromioplasty Medrol dose pack issued for pruritic rash ; discussed conservative treatment [place] issued for pain control Begin physical therapy Begin using operative arm and advance activities as tolerated Post op care discussed, all questions answered. OARRS reviewed - Patient is taking medication appropriately, will refill rx. Follow up in 4 weeks for repeat clinical evaluation with Dr. Viktor Stone PA-C Orthopaedic Surgery documented in this encounter[facility]25 NoteHNO ID: [id number] Author: CELESTINO LÓPEZ MD Service: Anesthesiology Author Type: Anesthesiologist Type: Anesthesia Procedure Notes Filed: 09/17/2024 09:10 Note Text: ANESTHESIOLOGY PROCEDURE NOTE Peripheral Nerve Block General Information Procedure Start Time/Medication Administration: 09/17/2024 7:21 AM Procedure End time: 09/17/2024 7:26 AM Patient location during procedure: pre-op Timeout Performed Pre-procedure: timeout performed Consent Obtained: Yes Patient identity confirmed: arm band Reason for block: post-op pain management/at surgeon's request Staffing Anesthesiologist: Celestino López MD Performed by: anesthesiologist Preparation Sterility Preparation: hand hygiene performed prior to procedure, surgical cap used, mask used, sterile drape used during line insertion, skin prep agent completely dried prior to procedure Site Prep: Chloraprep Pre-Procedure Neuro Exam Location: LUE Sensory: intact Motor: intact Procedure Details Patient Position: supine Monitoring: Pulse OX, EKG and NIBP Block Type Upper Extremity: brachial plexus Approach: supraclavicular Laterality: left Injection Technique: single-shot Ultrasound Guided: Yes Image in Chart: yes Local Infiltration: Yes Needle Needle Gauge: 22 G Needle Length: 51 mm Needle Localization: ultrasound Assessment Injection assessment: negative aspiration, no paresthesia on injection, incremental injection and local visualized surrounding nerve on ultrasound Post-Procedure Neuro Exam Expected Regional Anesthesia: Yes Medications Administered bupivacaine liposome (PF) 1.3 % (13.3 mg/mL) injection (EXPAREL) - INFILTRATION 133 mg - 09/17/2024 7:21:00 AM bupivacaine (PF) 0.5 % (5 mg/mL) injection - peripheral nerve block 3 mL - 09/17/2024 7:21:00 AM SIGNATURE: Celestino López MD PATIENT NAME: Ernestina Wade DATE: September 17, 2024 TIME: 9:09 AM CSN: [id number] NoteHNO ID: [id number] Author: DANA HERNÁNDEZ APRN.CRNA Service: Anesthesiology Author Type: Nurse Foundation Relations Manager Type: Anesthesia Procedure Notes Filed: 09/17/2024 08:09 Note Text: ANESTHESIOLOGY PROCEDURE NOTE Airway General Information Procedure Start Time/Medication Administration: 09/17/2024 7:46 AM Procedure End Time: 09/17/2024 7:47 AM Patient location during procedure: OR Timeout Performed Pre-procedure: timeout performed Consent Obtained: Yes Patient identity confirmed: arm band and care steam pressure chamber operator Staffing BIOPHYSICS TEACHER: Dana Hernández APRN.BIOPHYSICS TEACHER Performed by: ANEL Indications and Patient Condition Indications for airway management: anesthesia Preoxygenated: yes anesthesia circuit Patient position: sniffing Method: asleep Cricoid Pressure: No Difficult Mask: No Final Airway Details Final airway type: endotracheal airway Final Endotracheal Airway: ETT Cuffed: yes Successful intubation technique: direct laryngoscopy Devices used: intubating stylet Endotracheal tube insertion site: oral Blade: Isela Blade size: #3 ETT size (mm): 7.0 Measured from: lips Measurement (cm): 21 Placement verified by: chest auscultation and capnometry Cormack-Lehane Classification: grade I - full view of glottis Number of attempts at approach: 1 SIGNATURE: Dana Hernández APRN.CRNA PATIENT NAME: Ernestina Wade DATE: September 17, 2024 TIME: 8:08 AM CSN: [id number] Surgery Surgical operation note* Operative Report - Domonique Hoang DO - 09/17/2024 7:37 AM EST OPERATIVE/PROCEDURE REPORT LOG ID: [id number] SURGERY/PROCEDURE DATE: 09/17/2024 INCISION/PROCEDURE START TIME: 8:09 AM INCISION CLOSE/PROCEDURE END TIME: 8:36 AM SURGEON(S)/PROCEDURALIST(S) AND SHAFT SINKER(S): Surgeons and Role: * Domonique Hoang DO - Primary Physician Retort Or Condenser Press Operator: Tania Yanes PA-C Registered Nurse Microbiological Analyst: Martha Phililps RN SURGERY/PROCEDURE(S): Left shoulder arthroscopy, rc debridement, biceps tenotomy, sad/acromioplasty ANESTHESIA: General SURGERY/PROCEDURE DETAILS: Preop note Patient is a 54-year-old female with continued left shoulder pain recalcitrant to conservative treatment options. Risks benefits and alternatives surgery discussed with patient. Risks include but notlimited to blood loss, blood clot, infection, neurovascular injury, failure of procedure, loss of life and loss of limb. Patient is aware would like to proceed with left shoulder arthroscopy repair as indicated. We also did discuss biceps tenodesis versus tenotomy patient prefers tenotomy as she can move her elbow faster she is aware of the visual scarring that she will see in the middle of her arm as well as slight loss of terminal supination strength. Operative note Patient was seen examined preop player. Patient received a preop regional block. Patient was brought to the operating room placed supine on the operating table. Sign in, anesthesia, antibiotics were administered. Patient was placed in beachchair positioning and long term through we did recheck her blood pressure which was stable throughout. All bony prominences were well-padded and SCD placed on her bilateral lower extremities. We marked out our bony landmarks for portal placement timeout was performed. We then used an 18-gauge to insufflate the glenohumeral joint from the posterior aspect and had good return. Then used an 11 blade to create our posterior portal. Began our diagnostic arthroscopy. The glenohumeral joint was unremarkable there were no loose bodies in the inferior recess the labrum was intact posteriorly. We then moved anteriorly subscap was intact and stable probing. The rotator cuff was intact there is slight fraying of the leading edge about 20% of the tendon. We then created anterior portal under direct visualization. We probed the biceps with head streaking along the biceps tendon lipstick sign as well as instability at its insertion on the labrum. We then performed our tenotomy and debrided back any loose piece of the labrum. We then used a shaver to debride back the articular surface side of the rotator cuff confirming about a 20% degenerative tear on the articular surface not extending to the bursal side. We did benny the tear with an 18-gauge spinal needle. We then moved to the subacromial space there is extensive bursitis throughout. We created a lateral portal under direct visualization. We resected with a combination of an ablator wand and shaver the thickened and hyperemic bursa sac and could gently coplanar the distal aspect of the lateral acromion. We were able to then visualize the tear from the bursal side that we had premarked with her 18-gauge spinal needle and it did not extend and the rotator cuff was intact and stable probing from the bursal side. We irrigated the subacromial space with copious amounts of sterile saline. Portals were closed sterile dressings were applied sling was applied. Patient Toller procedure well no complications transfer recovery in stable condition Postoperative Use arm as tolerated and DC sling within the next few days Percocet cold therapy and Ambien given to patient Call with increased pain numbness tingling further issues arise Comment: Please note this report has been produced using speech recognition software and may contain errors related to that system including errors in grammar, punctuation, and spelling, as well as words and phrases that may be inappropriate. If there are any questions or concerns please feel free to contact the dictating provider for clarification. PRE-OP/PRE-PROCEDURE DIAGNOSIS: left shoulder rc tear, impingment syndrome, slap tear POST-OP/POST-PROCEDURE DIAGNOSIS: Same as Preop ESTIMATED BLOOD LOSS: 0 ml SPECIMENS: None IMPLANTABLE DEVICES: NONE DRAINS: None COMPLICATIONS: None CLOSURE TECHNIQUE: Primary PARTICIPATION IN SURGERY/PROCEDURE: I/primary surgeon/proceduralist performed the procedure with assistance. No qualified resident/fellow was available. No qualified resident was available to assist in the case. The PA/INSPECTOR PRECISION ASSEMBLY assisted me with retraction and mobilization of the limb for optimal visualization and appropriate placement of implant/fracture reduction. He/She was essential for the proper performance of the surgical procedure SIGNATURE: Domonique Hoang DO PATIENT NAME: Ernestina Wade DATE: September 17, 2024 TIME: 8:40 AM [facility]01[facility] Surgical operation note* Operative Report - Domonique Hoang DO - 09/17/2024 7:37 AM EST OPERATIVE/PROCEDURE REPORT LOG ID: [id number] SURGERY/PROCEDURE DATE: 09/17/2024 INCISION/PROCEDURE START TIME: 8:09 AM INCISION CLOSE/PROCEDURE END TIME: 8:36 AM SURGEON(S)/PROCEDURALIST(S) AND SHAFT SINKER(S): Surgeons and Role: * Domonique Hoang DO - Primary Physician Retort Or Condenser Press Operator: Tania Yanes PA-C Registered Nurse Microbiological Analyst: Martha Phillips RN SURGERY/PROCEDURE(S): Left shoulder arthroscopy, rc debridement, biceps tenotomy, sad/acromioplasty ANESTHESIA: General SURGERY/PROCEDURE DETAILS: Preop note Patient is a 54-year-old female with continued left shoulder pain recalcitrant to conservative treatment options. Risks benefits and alternatives surgery discussed with patient. Risks include but notlimited to blood loss, blood clot, infection, neurovascular injury, failure of procedure, loss of life and loss of limb. Patient is aware would like to proceed with left shoulder arthroscopy repair as indicated. We also did discuss biceps tenodesis versus tenotomy patient prefers tenotomy as she can move her elbow faster she is aware of the visual scarring that she will see in the middle of her arm as well as slight loss of terminal supination strength. Operative note Patient was seen examined preop player. Patient received a preop regional block. Patient was brought to the operating room placed supine on the operating table. Sign in, anesthesia, antibiotics were administered. Patient was placed in beachchair positioning and long term through we did recheck her blood pressure which was stable throughout. All bony prominences were well-padded and SCD placed on her bilateral lower extremities. We marked out our bony landmarks for portal placement timeout was performed. We then used an 18-gauge to insufflate the glenohumeral joint from the posterior aspect and had good return. Then used an 11 blade to create our posterior portal. Began our diagnostic arthroscopy. The glenohumeral joint was unremarkable there were no loose bodies in the inferior recess the labrum was intact posteriorly. We then moved anteriorly subscap was intact and stable probing. The rotator cuff was intact there is slight fraying of the leading edge about 20% of the tendon. We then created anterior portal under direct visualization. We probed the biceps with head streaking along the biceps tendon lipstick sign as well as instability at its insertion on the labrum. We then performed our tenotomy and debrided back any loose piece of the labrum. We then used a shaver to debride back the articular surface side of the rotator cuff confirming about a 20% degenerative tear on the articular surface not extending to the bursal side. We did benny the tear with an 18-gauge spinal needle. We then moved to the subacromial space there is extensive bursitis throughout. We created a lateral portal under direct visualization. We resected with a combination of an ablator wand and shaver the thickened and hyperemic bursa sac and could gently coplanar the distal aspect of the lateral acromion. We were able to then visualize the tear from the bursal side that we had premarked with her 18-gauge spinal needle and it did not extend and the rotator cuff was intact and stable probing from the bursal side. We irrigated the subacromial space with copious amounts of sterile saline. Portals were closed sterile dressings were applied sling was applied. Patient Toller procedure well no complications transfer recovery in stable condition Postoperative Use arm as tolerated and DC sling within the next few days Percocet cold therapy and Ambien given to patient Call with increased pain numbness tingling further issues arise Comment: Please note this report has been produced using speech recognition software and may contain errors related to that system including errors in grammar, punctuation, and spelling, as well as words and phrases that may be inappropriate. If there are any questions or concerns please feel free to contact the dictating provider for clarification. PRE-OP/PRE-PROCEDURE DIAGNOSIS: left shoulder rc tear, impingment syndrome, slap tear POST-OP/POST-PROCEDURE DIAGNOSIS: Same as Preop ESTIMATED BLOOD LOSS: 0 ml SPECIMENS: None IMPLANTABLE DEVICES: NONE DRAINS: None COMPLICATIONS: None CLOSURE TECHNIQUE: Primary PARTICIPATION IN SURGERY/PROCEDURE: I/primary surgeon/proceduralist performed the procedure with assistance. No qualified resident/fellow was available. No qualified resident was available to assist in the case. The PA/INSPECTOR PRECISION ASSEMBLY assisted me with retraction and mobilization of the limb for optimal visualization and appropriate placement of implant/fracture reduction. He/She was essential for the proper performance of the surgical procedure SIGNATURE: Domonique Hoang DO PATIENT NAME: Ernestina Wade DATE: September 17, 2024 TIME: 8:40 AM [facility]* Sparkle Young RN - 09/17/2024 7:[address] lópez at bedside for Left superclavicular nerve block. RN at bedside, pt monitored throughout, BP 174/83 Temp 36.1 C (97 F) (Temporal) Resp 20 Ht 162.6 cm (5' 4) Wt 103.4 kg (228 lb) LMP 03/21/2016 SpO2 97% BMI 39.14 kg/m .Pt tolerated procedure without difficulty. [facility]01[facility] Nurse Note* Sparkle Young RN - 09/17/2024 7:[address] lópez at bedside for Left superclavicular nerve block. RN at bedside, pt monitored throughout, BP 174/83 Temp 36.1 C (97 F) (Temporal) Resp 20 Ht 162.6 cm (5' 4) Wt 103.4 kg (228 lb) LMP 03/21/2016 SpO2 97% BMI 39.14 kg/m .Pt tolerated procedure without difficulty. [facility] Attending History and physical note* Domonique Hoang DO - 09/17/2024 7:20 AM EST UPDATED HISTORY AND PHYSICAL EXAMINATION SERVICE DATE: 09/17/2024 SERVICE TIME: 7:20 AM PHYSICAL EXAM MUST BE COMPLETED ON ADMISSION The History and Physical (completed in the past 30 days) has been reviewed and the patient has beenexamined. The contents accurately reflect the patient's condition with the following additions or revisions since the H&P was completed. Examination indicates no changes. This H&P can be found in the Electronic Medical Record. SIGNATURE: Domonique Hoang DO PATIENT NAME: Ernestina Wade DATE: September 17, 2024 TIME: 7:20 AM Source Note - Efrain Hodges APRN.INSPECTOR PRECISION ASSEMBLY - 08/28/2024 8:51 AM EST Images from the original note were not included. [facility] HISTORY AND PHYSICAL EXAMINATION SERVICE DATE: 08/28/2024 SERVICE TIME: 1:40 PM PRIMARY CARE PHYSICIAN: Chikis Montana MD Assessment Patient has the following medical conditions which may affect holland-operative course: Essential hypertension Assessment: controlled on rx Last 14 BP Last 14 Encounter BP Readings: Date: BP: 08/28/2024 118/84 08/22/2024 114/80 07/16/2024 139/71 06/21/2024 118/82 06/10/2024 120/82 06/03/2024 146/86 08/28/2023 120/82 06/08/2023 120/80 03/28/2016 126/82 03/22/2016 122/84 02/16/2016 134/88 01/14/2016 114/82 12/15/2015 128/88 Mixed hyperlipidemia Assessment: on rx Palpitations Assessment: hx, controlled on rx Prediabetes Assessment: controlled on oral agent, new A1c pending BMI 39.0-39.9,adult Assessment: Body mass index is 39.14 kg/m . Irritable bowel syndrome with diarrhea Assessment: controlled on rx SCC (squamous cell carcinoma) Assessment: s/p excision Harper Activity Status Index: METS: Climb a flight of stairs or walk up a hill (5.50 METs) DASI Score: 5.5 Patient denies any chest pain or undue shortness of breath with the above physical activity. Clinical Frailty Scale: 3. Well, with treated comorbid disease STOP-Bang Score: Has or is being treated for high blood pressure Patient over 50 years old Has a large neck Denies snoring loudly Denies feeling tired, fatigued, or sleepy during the daytime Has not been observed to stop breathing or choking/gasping during sleep BMI less than or equal to 35 kg/m^2 Non-male patient STOP-Bang Score: 3 [id number] Score: Age: <65 Sex: female CHF history: No Hypertension history: Yes Stroke/TIA/thromboembolism history: No Vascular disease history: No Diabetes history: No [id number] Score: 2 ARISCAT Score: Age: 51-80 Preoperative SpO2: >=96% Respiratory infection in the last month: No Preoperative anemia: No Surgical incision: peripheral Duration of surgery: 2-3 hrs Emergency procedure: No ARISCAT Score: 19 ANESTHESIA FINDINGS: Intubation History: No history of difficult intubation Significant Anesthesia Considerations: none Airway History: No history of difficult airway I - PHYSICAL EVALUATION AIRWAY Patient intubated: No. Tracheostomy tube not present Mallampati: III. TM distance: >3 FB. Neck ROM: full ROM without neurological symptoms. Mouth opening: adequate. Short neck: yes. Thick neck: yes Grijalva present: no Lip Bite Test: I Microretrognathia/Micronagthia/Recessed Chin: No DENTAL Dental findings: teeth intact. Additional comments: Implant/back. II - ANESTHESIA PLAN Anesthetic Plan: other Anesthetic plan additional comments: *PACC/TCI - anesthesia choice. Beta [place] Monitoring Plan Post Procedure Analgesic Plan Prepared for Surgery: optimally prepared for surgery, pending [see comment]. labs CONSULTS: Patient does not require consults for optimization at this time Planned Anesthetic: other anesthesia choice The Following Tests/Procedures Have Been Initiated: Orders Placed This Encounter >CBC + AUTO DIFF Standing Status: Future Number of Occurrences: 1 Standing Expiration Date: 11/27/2024 >CMP Standing Status: Future Number of Occurrences: 1 Standing Expiration Date: 11/27/2024 >HGB A1c (Today or soon) Standing Status: Future Number of Occurrences: 1 Standing Expiration Date: 11/27/2024 REASON FOR VISIT: Ernestina Wade is a 54 year old female who is scheduled for Procedure(s): ARTHROSCOPY SHOULDER ROTATOR CUFF (Left) at the request of Dr. Domonique Hoang for consultation. My final recommendation will be communicated back to the requesting physician by way of shared medical record or letter. Subjective The patient has the following: COVID-19 Immunization Status Overdue - Covid-19 Vaccine () Overdue since 05/12/2024 09/16/2021 Imm Admin: COVID-19 vaccine (ROSEANNA) 11/20/2020 Imm Admin: COVID-19 vaccine (ROSEANNA) CHIEF COMPLAINT: Pre-op exam HPI: Erenstina Wade is a 54 year old seen for PAC due to scheduled above surgery because of a left rotator cuff tear. 05/31/2024 Dr. Hoang Chief Complaint Ernestina Wade is a 54 year old female who presents today for follow up office visit. Patient presents with: Left Shoulder - Follow Up: Wants to go forward with surgery option and the details History of Present Illness PAIN EVALUATION 05/31/2024 0944 Pain Level: 1 Pain Location: Shoulder-Left Description: Aching;Sharp;Shooting;Sore Duration Amount of Time: 24 Duration Units: Hours Frequency: Continuous Intervention/Comfort measure: Medication;Reposition;Cold;Positioning Comments: Pain depends on what im doing. HPI: Ernestina Wade is a 54 year old female for a follow up visit left shoulder pain , left carpal tunnel. Pain history is noted as above. Denies calf pain, numbness, tingling, fever, chills or otherconstitutional symptoms. Is there any overall improvement in your condition? No Any new injury, since being seen last: No REVIEW OF SYSTEMS: General: No weight loss, malaise or fevers. Neurological: No history of TIA's, stroke, THERMIT WELDING MACHINE OPERATOR tumor, impaired sensorium, hemiplegia, paraplegia orquadraplegia. No neurological symptoms or problems. Respiratory: No history of current cough or dyspnea, or pneumonia in the past 6 weeks. No history of respiratory/pulmonary symptoms or problems. Cardiovascular: Positive for: arrhythmia (+palpitations, on rx), hyperlipidemia (on rx) and hypertension (on rx) Negative for: abdominal aortic aneurysm, AICD/PPM, angina, anticoagulation therapy, atrial fibrillation, CAD, chest pain, CHF, congenital heart defect, DVT/PE, recent [place], murmur/valvular heart disease, PTCA, PVD, open heart surgery and valve surgery. GI: +diarrhea, on rx Positive for: GERD (hx), irritable bowel syndrome and PUD (hx) Negative for: abdominal pain, dysphagia, hepatitis, inflammatory bowel disease, liver disease, nausea, pancreatitis, vomiting and ETOH >2 drinks/day. : No history of dysuria, frequency or incontinence, stones or chronic kidney disease. No difficulty urinating, nocturia > 1 time per night or hematuria. GLUER AND SLICER HAND: Negative for abnormal vaginal bleeding, abnormal vaginal discharge. Endocrine: +following endo +prediabetes, Jardiance Negative for: hypothyroidism. Hematology: No history of bleeding or clotting disorder. Patient is not taking anti-coagulation or platelet medications. No history of hematological symptoms or problems. Oncology: SCC s/p excision Psych: No history of psychiatric symptoms or problems. Musculoskeletal: See HPI. +right shoulder arthroscopy +left CTS release Positive for: joint pain (left shoulder). Skin: Dry skin Implanted Devices: No implanted devices. PAST MEDICAL HISTORY Diagnosis Date Essential hypertension 02/16/2016 Since 2005. Family history of colon cancer 02/16/2016 Lateral epicondylitis of both elbows 02/16/2016 Medial epicondylitis of right elbow 02/16/2016 Menorrhagia submucous fibroids Non morbid obesity due to excess calories 02/16/2016 Prediabetes 02/16/2016 Skin cancer PAST SURGICAL HISTORY Procedure Laterality Date COLONOSCOPY FLX DX W/COLLJ SPEC WHEN PFRMD 11/18/2010 Colonoscopy COLONOSCOPY SCREENING 07/03/2020 repeat 5 years recommended LAPAROSCOPY SURG CHOLECYSTECTOMY 09/11/2000 Cholecystectomy, lap PAST SURGICAL HISTORY OF Right 2023 right calf skin cancer removal PAST SURGICAL HISTORY OF 2023 Skin cancer removed from right calf REVISE MEDIAN N/CARPAL TUNNEL SURG Left 07/16/2024 SALPINGECTOMY 03/06/2017 SHOULDER SURGERY HX Right 02/27/2019 TOTAL ABDOM HYSTERECTOMY 03/06/2017 TUBAL LIGATION HX 09/11/2004 FAMILY HISTORY Problem Relation Age of Onset None Mother GI Father diverticulitis, recurrent Hypertension Father Diabetes Father Colon Cancer Father other (stomach cancer) Father No Known Problems Brother No Known Problems Brother Cancer Maternal Grandmother lung cancer Alzheimer's Disease Paternal Grandmother Colon Cancer Paternal Grandfather Dementia Maternal Aunt Social History Tobacco Use Smoking status: Never Smokeless tobacco: Never Vaping Use Vaping status: Never Used Substance Use Topics Alcohol use: Yes Comment: rare Drug use: No Prior to Admission medications as of 08/28/24 1102 Medication Sig Last Dose Taking ezetimibe (ZETIA) 10 mg tablet Take 1 tablet by mouth every afternoon. Taking Yes dilTIAZem CD (CARDIZEM CD, CARTIA XT) 120 mg 24 hr capsule Take 1 capsule by mouth once daily. Taking Yes JARDIANCE 10 mg tablet Taking Yes URSODIOL ORAL Taking 300 mg daily Taking Yes losartan (COZAAR) 50 mg tablet Take 1 tablet by mouth every afternoon. Taking Yes ergocalciferol, vitamin D2, (VITAMIN D2 ORAL) Take 1,000 Units by mouth once daily. Taking Yes No medication comments found. ALLERGIES Allergen Reactions Reglan [Metoclopram* Mental Status Change Objective PHYSICAL EXAM: General: alert and oriented (x3), healthy appearance and obese. Pertinent negatives noted - not distressed. Skin: normal color, no rash or lesions. HEENT: EOM intact and pupils equal round. Pertinent negatives noted - no carotid bruit. Cardiovascular: regular rate and rhythm, normal S1 and S2, no rub, murmurs, or gallop. Respiratory: normal breath sounds, no wheezes or crackles. No chest wall deformity or tenderness. Abdomen: soft. Pertinent negatives noted - not tender. Extremities: no deformity, no edema or tenderness, no joint swelling or clubbing. Neurological: normal cognition and motor skills. Gait normal. No weakness or sensory deficit. PAIN ASSESSMENT: VITALS: BP 118/84 Pulse 68 Temp (Src) 96.6 (Temporal) Resp 16 Ht 5' 4 (1.63m) Wt 228 lb (103.4kg) SpO2 98% LMP 03/21/2016 BMI 39.12 kg/(m^2). Diagnostic tests reviewed for today's visit: Lab Value Units Date High Low HB 15.2 g/dL 08/28/2024 15.5 11.5 HCT 46.3 % 08/28/2024 46.0 36.0 WBC 6.60 k/uL 08/28/2024 11.00 3.70 PLT 232 k/uL 08/28/2024 400 150 NA 141 mmol/L 08/28/2024 144 136 K 4.7 mmol/L 08/28/2024 5.1 3.7 GLUC 152 mg/dL 08/28/2024 99 74 BUN 14 mg/dL 08/28/2024 21 7 CREAT 0.83 mg/dL 08/28/2024 0.96 0.58 PTSEC No results within date range. INR No results within date range. APTT No results within date range. ALT 31 U/L 08/28/2024 38 7 AST 13 U/L 08/28/2024 35 13 TBILI 0.3 mg/dL 08/28/2024 1.3 0.2 TSH No results within date range. Lab Value Units Date High Low HCGQT No results within date range. UHCG No results within date range. HCG, BODY* No results within date range. Lab Value Units Date High Low ABORHD No results within date range. ABSCREEN No results within date range. No results found for: HBA1C Recent Results (from the past 8760 hour(s)) ECG COMPLETE Collection Time: 10/11/24 9:28 AM Result Value Ventricular Rate 69 Atrial Rate 69 P-R Interval 164 QRS Duration 80 QT Interval 410 QTC Calculation (Bazett) 439 Calculated P [place] 22 Calculated R [place] 3 Calculated T [place] 30 Impression NORMAL SINUS RHYTHM NORMAL ECG Confirmed by MD JOHNSON GREGORY () on 06/24/2024 10:45:17 AM No results found for this or any previous visit (from the past 14604 hour(s)). Instructions Given to Patient: Instructions located in the after visit summary. Patient given verbal and written preop instructions and voices comprehension and compliance. SIGNATURE: Efrain Hodges APRN.CNP PATIENT NAME: Ernestina Wade DATE: August 28, 2024 TIME: 8:51 AM PAGER[facility]CONTACT #: [facility] History and physical note* Domonique Hoang DO - 09/17/2024 7:20 AM EST UPDATED HISTORY AND PHYSICAL EXAMINATION SERVICE DATE: 09/17/2024 SERVICE TIME: 7:20 AM PHYSICAL EXAM MUST BE COMPLETED ON ADMISSION The History and Physical (completed in the past 30 days) has been reviewed and the patient has beenexamined. The contents accurately reflect the patient's condition with the following additions or revisions since the H&P was completed. Examination indicates no changes. This H&P can be found in the Electronic Medical Record. SIGNATURE: Domonique Hoang DO PATIENT NAME: Ernestina Wade DATE: September 17, 2024 TIME: 7:20 AM Source Note - Efrain Hodges APRN.CNP - 08/28/2024 8:51 AM EST Images from the original note were not included. [facility] HISTORY AND PHYSICAL EXAMINATION SERVICE DATE: 08/28/2024 SERVICE TIME: 1:40 PM PRIMARY CARE PHYSICIAN: Chikis Montana MD Assessment Patient has the following medical conditions which may affect holland-operative course: Essential hypertension Assessment: controlled on rx Last 14 BP Last 14 Encounter BP Readings: Date: BP: 08/28/2024 118/84 08/22/2024 114/80 07/16/2024 139/71 06/21/2024 118/82 06/10/2024 120/82 06/03/2024 146/86 08/28/2023 120/82 06/08/2023 120/80 03/28/2016 126/82 03/22/2016 122/84 02/16/2016 134/88 01/14/2016 114/82 12/15/2015 128/88 Mixed hyperlipidemia Assessment: on rx Palpitations Assessment: hx, controlled on rx Prediabetes Assessment: controlled on oral agent, new A1c pending BMI 39.0-39.9,adult Assessment: Body mass index is 39.14 kg/m . Irritable bowel syndrome with diarrhea Assessment: controlled on rx SCC (squamous cell carcinoma) Assessment: s/p excision Harper Activity Status Index: METS: Climb a flight of stairs or walk up a hill (5.50 METs) DASI Score: 5.5 Patient denies any chest pain or undue shortness of breath with the above physical activity. Clinical Frailty Scale: 3. Well, with treated comorbid disease STOP-Bang Score: Has or is being treated for high blood pressure Patient over 50 years old Has a large neck Denies snoring loudly Denies feeling tired, fatigued, or sleepy during the daytime Has not been observed to stop breathing or choking/gasping during sleep BMI less than or equal to 35 kg/m^2 Non-male patient STOP-Bang Score: 3 [id number] Score: Age: <65 Sex: female CHF history: No Hypertension history: Yes Stroke/TIA/thromboembolism history: No Vascular disease history: No Diabetes history: No [id number] Score: 2 ARISCAT Score: Age: 51-80 Preoperative SpO2: >=96% Respiratory infection in the last month: No Preoperative anemia: No Surgical incision: peripheral Duration of surgery: 2-3 hrs Emergency procedure: No ARISCAT Score: 19 ANESTHESIA FINDINGS: Intubation History: No history of difficult intubation Significant Anesthesia Considerations: none Airway History: No history of difficult airway I - PHYSICAL EVALUATION AIRWAY Patient intubated: No. Tracheostomy tube not present Mallampati: III. TM distance: >3 FB. Neck ROM: full ROM without neurological symptoms. Mouth opening: adequate. Short neck: yes. Thick neck: yes Grijalva present: no Lip Bite Test: I Microretrognathia/Micronagthia/Recessed Chin: No DENTAL Dental findings: teeth intact. Additional comments: Implant/back. II - ANESTHESIA PLAN Anesthetic Plan: other Anesthetic plan additional comments: *PACC/TCI - anesthesia choice. Beta [place] Monitoring Plan Post Procedure Analgesic Plan Prepared for Surgery: optimally prepared for surgery, pending [see comment]. labs CONSULTS: Patient does not require consults for optimization at this time Planned Anesthetic: other anesthesia choice The Following Tests/Procedures Have Been Initiated: Orders Placed This Encounter >CBC + AUTO DIFF Standing Status: Future Number of Occurrences: 1 Standing Expiration Date: 11/27/2024 >CMP Standing Status: Future Number of Occurrences: 1 Standing Expiration Date: 11/27/2024 >HGB A1c (Today or soon) Standing Status: Future Number of Occurrences: 1 Standing Expiration Date: 11/27/2024 REASON FOR VISIT: Ernestina Wade is a 54 year old female who is scheduled for Procedure(s): ARTHROSCOPY SHOULDER ROTATOR CUFF (Left) at the request of Dr. Domonique Hoang for consultation. My final recommendation will be communicated back to the requesting physician by way of shared medical record or letter. Subjective The patient has the following: COVID-19 Immunization Status Overdue - Covid-19 Vaccine () Overdue since 05/12/2024 09/16/2021 Imm Admin: COVID-19 vaccine (ROSEANNA) 11/20/2020 Imm Admin: COVID-19 vaccine (ROSEANNA) CHIEF COMPLAINT: Pre-op exam HPI: Ernestina Wade is a 54 year old seen for PAC due to scheduled above surgery because of a left rotator cuff tear. 05/31/2024 Dr. Hoang Chief Complaint Ernestina Wade is a 54 year old female who presents today for follow up office visit. Patient presents with: Left Shoulder - Follow Up: Wants to go forward with surgery option and the details History of Present Illness PAIN EVALUATION 05/31/2024 0944 Pain Level: 1 Pain Location: Shoulder-Left Description: Aching;Sharp;Shooting;Sore Duration Amount of Time: 24 Duration Units: Hours Frequency: Continuous Intervention/Comfort measure: Medication;Reposition;Cold;Positioning Comments: Pain depends on what im doing. HPI: Ernestina Wade is a 54 year old female for a follow up visit left shoulder pain , left carpal tunnel. Pain history is noted as above. Denies calf pain, numbness, tingling, fever, chills or otherconstitutional symptoms. Is there any overall improvement in your condition? No Any new injury, since being seen last: No REVIEW OF SYSTEMS: General: No weight loss, malaise or fevers. Neurological: No history of TIA's, stroke, THERMIT WELDING MACHINE OPERATOR tumor, impaired sensorium, hemiplegia, paraplegia orquadraplegia. No neurological symptoms or problems. Respiratory: No history of current cough or dyspnea, or pneumonia in the past 6 weeks. No history of respiratory/pulmonary symptoms or problems. Cardiovascular: Positive for: arrhythmia (+palpitations, on rx), hyperlipidemia (on rx) and hypertension (on rx) Negative for: abdominal aortic aneurysm, AICD/PPM, angina, anticoagulation therapy, atrial fibrillation, CAD, chest pain, CHF, congenital heart defect, DVT/PE, recent [place], murmur/valvular heart disease, PTCA, PVD, open heart surgery and valve surgery. GI: +diarrhea, on rx Positive for: GERD (hx), irritable bowel syndrome and PUD (hx) Negative for: abdominal pain, dysphagia, hepatitis, inflammatory bowel disease, liver disease, nausea, pancreatitis, vomiting and ETOH >2 drinks/day. : No history of dysuria, frequency or incontinence, stones or chronic kidney disease. No difficulty urinating, nocturia > 1 time per night or hematuria. GLUER AND SLICER HAND: Negative for abnormal vaginal bleeding, abnormal vaginal discharge. Endocrine: +following endo +prediabetes, Jardiance Negative for: hypothyroidism. Hematology: No history of bleeding or clotting disorder. Patient is not taking anti-coagulation or platelet medications. No history of hematological symptoms or problems. Oncology: SCC s/p excision Psych: No history of psychiatric symptoms or problems. Musculoskeletal: See HPI. +right shoulder arthroscopy +left CTS release Positive for: joint pain (left shoulder). Skin: Dry skin Implanted Devices: No implanted devices. PAST MEDICAL HISTORY Diagnosis Date Essential hypertension 02/16/2016 Since 2005. Family history of colon cancer 02/16/2016 Lateral epicondylitis of both elbows 02/16/2016 Medial epicondylitis of right elbow 02/16/2016 Menorrhagia submucous fibroids Non morbid obesity due to excess calories 02/16/2016 Prediabetes 02/16/2016 Skin cancer PAST SURGICAL HISTORY Procedure Laterality Date COLONOSCOPY FLX DX W/COLLJ SPEC WHEN PFRMD 11/18/2010 Colonoscopy COLONOSCOPY SCREENING 07/03/2020 repeat 5 years recommended LAPAROSCOPY SURG CHOLECYSTECTOMY 09/11/2000 Cholecystectomy, lap PAST SURGICAL HISTORY OF Right 2023 right calf skin cancer removal PAST SURGICAL HISTORY OF 2023 Skin cancer removed from right calf REVISE MEDIAN N/CARPAL TUNNEL SURG Left 07/16/2024 SALPINGECTOMY 03/06/2017 SHOULDER SURGERY HX Right 02/27/2019 TOTAL ABDOM HYSTERECTOMY 03/06/2017 TUBAL LIGATION HX 09/11/2004 FAMILY HISTORY Problem Relation Age of Onset None Mother GI Father diverticulitis, recurrent Hypertension Father Diabetes Father Colon Cancer Father other (stomach cancer) Father No Known Problems Brother No Known Problems Brother Cancer Maternal Grandmother lung cancer Alzheimer's Disease Paternal Grandmother Colon Cancer Paternal Grandfather Dementia Maternal Aunt Social History Tobacco Use Smoking status: Never Smokeless tobacco: Never Vaping Use Vaping status: Never Used Substance Use Topics Alcohol use: Yes Comment: rare Drug use: No Prior to Admission medications as of 08/28/24 1102 Medication Sig Last Dose Taking ezetimibe (ZETIA) 10 mg tablet Take 1 tablet by mouth every afternoon. Taking Yes dilTIAZem CD (CARDIZEM CD, CARTIA XT) 120 mg 24 hr capsule Take 1 capsule by mouth once daily. Taking Yes JARDIANCE 10 mg tablet Taking Yes URSODIOL ORAL Taking 300 mg daily Taking Yes losartan (COZAAR) 50 mg tablet Take 1 tablet by mouth every afternoon. Taking Yes ergocalciferol, vitamin D2, (VITAMIN D2 ORAL) Take 1,000 Units by mouth once daily. Taking Yes No medication comments found. ALLERGIES Allergen Reactions Reglan [Metoclopram* Mental Status Change Objective PHYSICAL EXAM: General: alert and oriented (x3), healthy appearance and obese. Pertinent negatives noted - not distressed. Skin: normal color, no rash or lesions. HEENT: EOM intact and pupils equal round. Pertinent negatives noted - no carotid bruit. Cardiovascular: regular rate and rhythm, normal S1 and S2, no rub, murmurs, or gallop. Respiratory: normal breath sounds, no wheezes or crackles. No chest wall deformity or tenderness. Abdomen: soft. Pertinent negatives noted - not tender. Extremities: no deformity, no edema or tenderness, no joint swelling or clubbing. Neurological: normal cognition and motor skills. Gait normal. No weakness or sensory deficit. PAIN ASSESSMENT: VITALS: BP 118/84 Pulse 68 Temp (Src) 96.6 (Temporal) Resp 16 Ht 5' 4 (1.63m) Wt 228 lb (103.4kg) SpO2 98% LMP 03/21/2016 BMI 39.12 kg/(m^2). Diagnostic tests reviewed for today's visit: Lab Value Units Date High Low HB 15.2 g/dL 08/28/2024 15.5 11.5 HCT 46.3 % 08/28/2024 46.0 36.0 WBC 6.60 k/uL 08/28/2024 11.00 3.70 PLT 232 k/uL 08/28/2024 400 150 NA 141 mmol/L 08/28/2024 144 136 K 4.7 mmol/L 08/28/2024 5.1 3.7 GLUC 152 mg/dL 08/28/2024 99 74 BUN 14 mg/dL 08/28/2024 21 7 CREAT 0.83 mg/dL 08/28/2024 0.96 0.58 PTSEC No results within date range. INR No results within date range. APTT No results within date range. ALT 31 U/L 08/28/2024 38 7 AST 13 U/L 08/28/2024 35 13 TBILI 0.3 mg/dL 08/28/2024 1.3 0.2 TSH No results within date range. Lab Value Units Date High Low HCGQT No results within date range. UHCG No results within date range. HCG, BODY* No results within date range. Lab Value Units Date High Low ABORHD No results within date range. ABSCREEN No results within date range. No results found for: HBA1C Recent Results (from the past 8760 hour(s)) ECG COMPLETE Collection Time: 06/21/24 9:28 AM Result Value Ventricular Rate 69 Atrial Rate 69 P-R Interval 164 QRS Duration 80 QT Interval 410 QTC Calculation (Bazett) 439 Calculated P Porterfield 22 Calculated R Porterfield 3 Calculated T Porter[place] 30 Impression NORMAL SINUS RHYTHM NORMAL ECG Confirmed by MD JOHNSON GREGORY () on 06/24/2024 10:45:17 AM No results found for this or any previous visit (from the past 35821 hour(s)). Instructions Given to Patient: Instructions located in the after visit summary. Patient given verbal and written preop instructions and voices comprehension and compliance. SIGNATURE: Efrain Hodges APRN.CNP PATIENT NAME: Ernestina Wade DATE: August 28, 2024 TIME: 8:51 AM PAGER/CONTACT #: [facility] History of Present illness Narrative* Vicki Gallo Mammo Tech - 09/09/2024 11:10 AM EST Radiology Service Progress Note PATIENT NAME: Ernestina Wade DATE OF SERVICE: September 09, 2024 TIME: 11:34 AM PATIENT IDENTITY VERIFICATION COMPLETED USING TWO (2) IDENTIFIERS: Name and Date of confirmedby patient verbally. FALL SCREENING: Has the patient had 2 falls in the last year or 1 fall with injury or currently using an Ambulatory Assistive Device (Walker, Cane, Wheelchair, Crutches, etc.)? No PATIENT GENDER DATA: Female. status: : No status: NO. PATIENT RELEVANT IMPLANT DATA REVIEWED: Not Applicable PATIENT PRESENTS WITH AN IMPLANTABLE OR ATTACHED ADVANCED MANAGER: No RADIOLOGY DEPARTMENT: Mammography PERIPHERAL IV DATA: Not applicable SIGNED BY: Hemal Davis September 09, 2024 11:34 AM documented in this encounter[facility]24 NoteHNO ID: [id number] Author: VICKI GALLO Mammo Tech Service: ? Author Type: Field Artillery Operations Specialist Type: Progress Notes Filed: 09/09/2024 11:34 Note Text: Radiology Service Progress Note PATIENT NAME: Ernestina Wade DATE OF SERVICE: September 09, 2024 TIME: 11:34 AM PATIENT IDENTITY VERIFICATION COMPLETED USING TWO (2) IDENTIFIERS: Name and Date of confirmed by patient verbally. FALL SCREENING: Has the patient had 2 falls in the last year or 1 fall with injury or currently using an Ambulatory Assistive Device (Walker, Cane, Wheelchair, Crutches, etc.)? No PATIENT GENDER DATA: Female. status: : No status: NO. PATIENT RELEVANT IMPLANT DATA REVIEWED: Not Applicable PATIENT PRESENTS WITH AN IMPLANTABLE OR ATTACHED ADVANCED MANAGER: No RADIOLOGY DEPARTMENT: Mammography PERIPHERAL IV DATA: Not applicable SIGNED BY: Filippo Daviso Kamini September 09, 2024 11:34 [facility]12-30-2024 Telephone encounter Note* Telephone Encounter - Rashmi Paulino Mammo Tech - 09/09/2024 8:56 AM EST Can you release the pt mammogram order STAT she has appt at 0930 [facility] Miscellaneous Notes* Telephone Encounter - Rashmi Paulino Mammo Tech - 09/09/2024 8:56 AM EST Can you release the pt mammogram order STAT she has appt at 0930 documented [facility] History and physical note * Efrain Hodges, DUAL HOSE CEMENTER.INSPECTOR PRECISION ASSEMBLY - 08/28/2024 8:51 AM EST Images from the original note were not included. [facility] HISTORY AND PHYSICAL EXAMINATION SERVICE DATE: 08/28/2024 SERVICE TIME: 1:40 PM PRIMARY CARE PHYSICIAN: Chikis Montana MD Assessment Patient has the following medical conditions which may affect holland-operative course: Essential hypertension Assessment: controlled on rx Last 14 BP Last 14 Encounter BP Readings: Date: BP: 08/28/2024 118/84 08/22/2024 114/80 07/16/2024 139/71 06/21/2024 118/82 06/10/2024 120/82 06/03/2024 146/86 08/28/2023 120/82 06/08/2023 120/80 03/28/2016 126/82 03/22/2016 122/84 02/16/2016 134/88 01/14/2016 114/82 12/15/2015 128/88 Mixed hyperlipidemia Assessment: on rx Palpitations Assessment: hx, controlled on rx Prediabetes Assessment: controlled on oral agent, new A1c pending BMI 39.0-39.9,adult Assessment: Body mass index is 39.14 kg/m . Irritable bowel syndrome with diarrhea Assessment: controlled on rx SCC (squamous cell carcinoma) Assessment: s/p excision Harper Activity Status Index: METS: Climb a flight of stairs or walk up a hill (5.50 METs) DASI Score: 5.5 Patient denies any chest pain or undue shortness of breath with the above physical activity. Clinical Frailty Scale: 3. Well, with treated comorbid disease STOP-Bang Score: Has or is being treated for high blood pressure Patient over 50 years old Has a large neck Denies snoring loudly Denies feeling tired, fatigued, or sleepy during the daytime Has not been observed to stop breathing or choking/gasping during sleep BMI less than or equal to 35 kg/m^2 Non-male patient STOP-Bang Score: 3 [id number] Score: Age: <65 Sex: female CHF history: No Hypertension history: Yes Stroke/TIA/thromboembolism history: No Vascular disease history: No Diabetes history: No [id number] Score: 2 ARISCAT Score: Age: 51-80 Preoperative SpO2: >=96% Respiratory infection in the last month: No Preoperative anemia: No Surgical incision: peripheral Duration of surgery: 2-3 hrs Emergency procedure: No ARISCAT Score: 19 ANESTHESIA FINDINGS: Intubation History: No history of difficult intubation Significant Anesthesia Considerations: none Airway History: No history of difficult airway I - PHYSICAL EVALUATION AIRWAY Patient intubated: No. Tracheostomy tube not present Mallampati: III. TM distance: >3 FB. Neck ROM: full ROM without neurological symptoms. Mouth opening: adequate. Short neck: yes. Thick neck: yes Grijalva present: no Lip Bite Test: I Microretrognathia/Micronagthia/Recessed Chin: No DENTAL Dental findings: teeth intact. Additional comments: Implant/back. II - ANESTHESIA PLAN Anesthetic Plan: other Anesthetic plan additional comments: *PACC/TCI - anesthesia choice. Beta [place] Monitoring Plan Post Procedure Analgesic Plan Prepared for Surgery: optimally prepared for surgery, pending [see comment]. labs CONSULTS: Patient does not require consults for optimization at this time Planned Anesthetic: other anesthesia choice The Following Tests/Procedures Have Been Initiated: Orders Placed This Encounter >CBC + AUTO DIFF Standing Status: Future Number of Occurrences: 1 Standing Expiration Date: 11/27/2024 >CMP Standing Status: Future Number of Occurrences: 1 Standing Expiration Date: 11/27/2024 >HGB A1c (Today or soon) Standing Status: Future Number of Occurrences: 1 Standing Expiration Date: 11/27/2024 REASON FOR VISIT: Ernestina Wade is a 54 year old female who is scheduled for Procedure(s): ARTHROSCOPY SHOULDER ROTATOR CUFF (Left) at the request of Dr. Domonique Hoang for consultation. My final recommendation will be communicated back to the requesting physician by way of shared medical record or letter. Subjective The patient has the following: COVID-19 Immunization Status Overdue - Covid-19 Vaccine () Overdue since 05/12/2024 09/16/2021 Imm Admin: COVID-19 vaccine (ROSEANNA) 11/20/2020 Imm Admin: COVID-19 vaccine (ROSEANNA) CHIEF COMPLAINT: Pre-op exam HPI: Ernestina Wade is a 54 year old seen for PAC due to scheduled above surgery because of a left rotator cuff tear. 05/31/2024 Dr. Hoang Chief Complaint Ernestina Wade is a 54 year old female who presents today for follow up office visit. Patient presents with: Left Shoulder - Follow Up: Wants to go forward with surgery option and the details History of Present Illness PAIN EVALUATION 05/31/2024 0944 Pain Level: 1 Pain Location: Shoulder-Left Description: Aching;Sharp;Shooting;Sore Duration Amount of Time: 24 Duration Units: Hours Frequency: Continuous Intervention/Comfort measure: Medication;Reposition;Cold;Positioning Comments: Pain depends on what im doing. HPI: Ernestina Wade is a 54 year old female for a follow up visit left shoulder pain , left carpal tunnel. Pain history is noted as above. Denies calf pain, numbness, tingling, fever, chills or otherconstitutional symptoms. Is there any overall improvement in your condition? No Any new injury, since being seen last: No REVIEW OF SYSTEMS: General: No weight loss, malaise or fevers. Neurological: No history of TIA's, stroke, THERMIT WELDING MACHINE OPERATOR tumor, impaired sensorium, hemiplegia, paraplegia orquadraplegia. No neurological symptoms or problems. Respiratory: No history of current cough or dyspnea, or pneumonia in the past 6 weeks. No history of respiratory/pulmonary symptoms or problems. Cardiovascular: Positive for: arrhythmia (+palpitations, on rx), hyperlipidemia (on rx) and hypertension (on rx) Negative for: abdominal aortic aneurysm, AICD/PPM, angina, anticoagulation therapy, atrial fibrillation, CAD, chest pain, CHF, congenital heart defect, DVT/PE, recent [place], murmur/valvular heart disease, PTCA, PVD, open heart surgery and valve surgery. GI: +diarrhea, on rx Positive for: GERD (hx), irritable bowel syndrome and PUD (hx) Negative for: abdominal pain, dysphagia, hepatitis, inflammatory bowel disease, liver disease, nausea, pancreatitis, vomiting and ETOH >2 drinks/day. : No history of dysuria, frequency or incontinence, stones or chronic kidney disease. No difficulty urinating, nocturia > 1 time per night or hematuria. GLUER AND SLICER HAND: Negative for abnormal vaginal bleeding, abnormal vaginal discharge. Endocrine: +following endo +prediabetes, Jardiance Negative for: hypothyroidism. Hematology: No history of bleeding or clotting disorder. Patient is not taking anti-coagulation or platelet medications. No history of hematological symptoms or problems. Oncology: SCC s/p excision Psych: No history of psychiatric symptoms or problems. Musculoskeletal: See HPI. +right shoulder arthroscopy +left CTS release Positive for: joint pain (left shoulder). Skin: Dry skin Implanted Devices: No implanted devices. PAST MEDICAL HISTORY Diagnosis Date Essential hypertension 02/16/2016 Since 2005. Family history of colon cancer 02/16/2016 Lateral epicondylitis of both elbows 02/16/2016 Medial epicondylitis of right elbow 02/16/2016 Menorrhagia submucous fibroids Non morbid obesity due to excess calories 02/16/2016 Prediabetes 02/16/2016 Skin cancer PAST SURGICAL HISTORY Procedure Laterality Date COLONOSCOPY FLX DX W/COLLJ SPEC WHEN PFRMD 11/18/2010 Colonoscopy COLONOSCOPY SCREENING 07/03/2020 repeat 5 years recommended LAPAROSCOPY SURG CHOLECYSTECTOMY 09/11/2000 Cholecystectomy, lap PAST SURGICAL HISTORY OF Right 2023 right calf skin cancer removal PAST SURGICAL HISTORY OF 2023 Skin cancer removed from right calf REVISE MEDIAN N/CARPAL TUNNEL SURG Left 07/16/2024 SALPINGECTOMY 03/06/2017 SHOULDER SURGERY HX Right 02/27/2019 TOTAL ABDOM HYSTERECTOMY 03/06/2017 TUBAL LIGATION HX 09/11/2004 FAMILY HISTORY Problem Relation Age of Onset None Mother GI Father diverticulitis, recurrent Hypertension Father Diabetes Father Colon Cancer Father other (stomach cancer) Father No Known Problems Brother No Known Problems Brother Cancer Maternal Grandmother lung cancer Alzheimer's Disease Paternal Grandmother Colon Cancer Paternal Grandfather Dementia Maternal Aunt Social History Tobacco Use Smoking status: Never Smokeless tobacco: Never Vaping Use Vaping status: Never Used Substance Use Topics Alcohol use: Yes Comment: rare Drug use: No Prior to Admission medications as of 08/28/24 1102 Medication Sig Last Dose Taking ezetimibe (ZETIA) 10 mg tablet Take 1 tablet by mouth every afternoon. Taking Yes dilTIAZem CD (CARDIZEM CD, CARTIA XT) 120 mg 24 hr capsule Take 1 capsule by mouth once daily. Taking Yes JARDIANCE 10 mg tablet Taking Yes URSODIOL ORAL Taking 300 mg daily Taking Yes losartan (COZAAR) 50 mg tablet Take 1 tablet by mouth every afternoon. Taking Yes ergocalciferol, vitamin D2, (VITAMIN D2 ORAL) Take 1,000 Units by mouth once daily. Taking Yes No medication comments found. ALLERGIES Allergen Reactions Reglan [Metoclopram* Mental Status Change Objective PHYSICAL EXAM: General: alert and oriented (x3), healthy appearance and obese. Pertinent negatives noted - not distressed. Skin: normal color, no rash or lesions. HEENT: EOM intact and pupils equal round. Pertinent negatives noted - no carotid bruit. Cardiovascular: regular rate and rhythm, normal S1 and S2, no rub, murmurs, or gallop. Respiratory: normal breath sounds, no wheezes or crackles. No chest wall deformity or tenderness. Abdomen: soft. Pertinent negatives noted - not tender. Extremities: no deformity, no edema or tenderness, no joint swelling or clubbing. Neurological: normal cognition and motor skills. Gait normal. No weakness or sensory deficit. PAIN ASSESSMENT: VITALS: BP 118/84 Pulse 68 Temp (Src) 96.6 (Temporal) Resp 16 Ht 5' 4 (1.63m) Wt 228 lb (103.4kg) SpO2 98% LMP 03/21/2016 BMI 39.12 kg/(m^2). Diagnostic tests reviewed for today's visit: Lab Value Units Date High Low HB 15.2 g/dL 08/28/2024 15.5 11.5 HCT 46.3 % 08/28/2024 46.0 36.0 WBC 6.60 k/uL 08/28/2024 11.00 3.70 PLT 232 k/uL 08/28/2024 400 150 NA 141 mmol/L 08/28/2024 144 136 K 4.7 mmol/L 08/28/2024 5.1 3.7 GLUC 152 mg/dL 08/28/2024 99 74 BUN 14 mg/dL 08/28/2024 21 7 CREAT 0.83 mg/dL 08/28/2024 0.96 0.58 PTSEC No results within date range. INR No results within date range. APTT No results within date range. ALT 31 U/L 08/28/2024 38 7 AST 13 U/L 08/28/2024 35 13 TBILI 0.3 mg/dL 08/28/2024 1.3 0.2 TSH No results within date range. Lab Value Units Date High Low HCGQT No results within date range. UHCG No results within date range. HCG, BODY* No results within date range. Lab Value Units Date High Low ABORHD No results within date range. ABSCREEN No results within date range. No results found for: HBA1C Recent Results (from the past 8760 hour(s)) ECG COMPLETE Collection Time: 06/21/24 9:28 AM Result Value Ventricular Rate 69 Atrial Rate 69 P-R Interval 164 QRS Duration 80 QT Interval 410 QTC Calculation (Bazett) 439 Calculated P Porterfield 22 Calculated R Porterfield 3 Calculated T Porter[place] 30 Impression NORMAL SINUS RHYTHM NORMAL ECG Confirmed by MD JOHNSON GREGORY () on 06/24/2024 10:45:17 AM No results found for this or any previous visit (from the past 16204 hour(s)). Instructions Given to Patient: Instructions located in the after visit summary. Patient given verbal and written preop instructions and voices comprehension and compliance. SIGNATURE: Efrain Hodges APRN.CNP PATIENT NAME: Ernestina Wade DATE: August 28, 2024 TIME: 8:51 AM PAGER[facility]CONTACT #: [facility] History and physical note* Efrain Hodges APRN.CNP - 08/28/2024 8:51 AM EST Images from the original note were not included. [facility] HISTORY AND PHYSICAL EXAMINATION SERVICE DATE: 08/28/2024 SERVICE TIME: 1:40 PM PRIMARY CARE PHYSICIAN: Chikis Montana MD Assessment Patient has the following medical conditions which may affect holland-operative course: Essential hypertension Assessment: controlled on rx Last 14 BP Last 14 Encounter BP Readings: Date: BP: 08/28/2024 118/84 08/22/2024 114/80 07/16/2024 139/71 06/21/2024 118/82 06/10/2024 120/82 06/03/2024 146/86 08/28/2023 120/82 06/08/2023 120/80 03/28/2016 126/82 03/22/2016 122/84 02/16/2016 134/88 01/14/2016 114/82 12/15/2015 128/88 Mixed hyperlipidemia Assessment: on rx Palpitations Assessment: hx, controlled on rx Prediabetes Assessment: controlled on oral agent, new A1c pending BMI 39.0-39.9,adult Assessment: Body mass index is 39.14 kg/m . Irritable bowel syndrome with diarrhea Assessment: controlled on rx SCC (squamous cell carcinoma) Assessment: s/p excision Harper Activity Status Index: METS: Climb a flight of stairs or walk up a hill (5.50 METs) DASI Score: 5.5 Patient denies any chest pain or undue shortness of breath with the above physical activity. Clinical Frailty Scale: 3. Well, with treated comorbid disease STOP-Bang Score: Has or is being treated for high blood pressure Patient over 50 years old Has a large neck Denies snoring loudly Denies feeling tired, fatigued, or sleepy during the daytime Has not been observed to stop breathing or choking/gasping during sleep BMI less than or equal to 35 kg/m^2 Non-male patient STOP-Bang Score: 3 [id number] Score: Age: <65 Sex: female CHF history: No Hypertension history: Yes Stroke/TIA/thromboembolism history: No Vascular disease history: No Diabetes history: No [id number] Score: 2 ARISCAT Score: Age: 51-80 Preoperative SpO2: >=96% Respiratory infection in the last month: No Preoperative anemia: No Surgical incision: peripheral Duration of surgery: 2-3 hrs Emergency procedure: No ARISCAT Score: 19 ANESTHESIA FINDINGS: Intubation History: No history of difficult intubation Significant Anesthesia Considerations: none Airway History: No history of difficult airway I - PHYSICAL EVALUATION AIRWAY Patient intubated: No. Tracheostomy tube not present Mallampati: III. TM distance: >3 FB. Neck ROM: full ROM without neurological symptoms. Mouth opening: adequate. Short neck: yes. Thick neck: yes Grijalva present: no Lip Bite Test: I Microretrognathia/Micronagthia/Recessed Chin: No DENTAL Dental findings: teeth intact. Additional comments: Implant/back. II - ANESTHESIA PLAN Anesthetic Plan: other Anesthetic plan additional comments: *PACC/TCI - anesthesia choice. Beta [place] Monitoring Plan Post Procedure Analgesic Plan Prepared for Surgery: optimally prepared for surgery, pending [see comment]. labs CONSULTS: Patient does not require consults for optimization at this time Planned Anesthetic: other anesthesia choice The Following Tests/Procedures Have Been Initiated: Orders Placed This Encounter >CBC + AUTO DIFF Standing Status: Future Number of Occurrences: 1 Standing Expiration Date: 11/27/2024 >CMP Standing Status: Future Number of Occurrences: 1 Standing Expiration Date: 11/27/2024 >HGB A1c (Today or soon) Standing Status: Future Number of Occurrences: 1 Standing Expiration Date: 11/27/2024 REASON FOR VISIT: Ernestina Wade is a 54 year old female who is scheduled for Procedure(s): ARTHROSCOPY SHOULDER ROTATOR CUFF (Left) at the request of Dr. Domonique Hoang for consultation. My final recommendation will be communicated back to the requesting physician by way of shared medical record or letter. Subjective The patient has the following: COVID-19 Immunization Status Overdue - Covid-19 Vaccine () Overdue since 05/12/2024 09/16/2021 Imm Admin: COVID-19 vaccine (ROSEANNA) 11/20/2020 Imm Admin: COVID-19 vaccine (ROSEANNA) CHIEF COMPLAINT: Pre-op exam HPI: Ernestina Wade is a 54 year old seen for PAC due to scheduled above surgery because of a left rotator cuff tear. 05/31/2024 Dr. Hoang Chief Complaint Ernestina Wade is a 54 year old female who presents today for follow up office visit. Patient presents with: Left Shoulder - Follow Up: Wants to go forward with surgery option and the details History of Present Illness PAIN EVALUATION 05/31/2024 0944 Pain Level: 1 Pain Location: Shoulder-Left Description: Aching;Sharp;Shooting;Sore Duration Amount of Time: 24 Duration Units: Hours Frequency: Continuous Intervention/Comfort measure: Medication;Reposition;Cold;Positioning Comments: Pain depends on what im doing. HPI: Ernestina Wade is a 54 year old female for a follow up visit left shoulder pain , left carpal tunnel. Pain history is noted as above. Denies calf pain, numbness, tingling, fever, chills or otherconstitutional symptoms. Is there any overall improvement in your condition? No Any new injury, since being seen last: No REVIEW OF SYSTEMS: General: No weight loss, malaise or fevers. Neurological: No history of TIA's, stroke, THERMIT WELDING MACHINE OPERATOR tumor, impaired sensorium, hemiplegia, paraplegia orquadraplegia. No neurological symptoms or problems. Respiratory: No history of current cough or dyspnea, or pneumonia in the past 6 weeks. No history of respiratory/pulmonary symptoms or problems. Cardiovascular: Positive for: arrhythmia (+palpitations, on rx), hyperlipidemia (on rx) and hypertension (on rx) Negative for: abdominal aortic aneurysm, AICD/PPM, angina, anticoagulation therapy, atrial fibrillation, CAD, chest pain, CHF, congenital heart defect, DVT/PE, recent [place], murmur/valvular heart disease, PTCA, PVD, open heart surgery and valve surgery. GI: +diarrhea, on rx Positive for: GERD (hx), irritable bowel syndrome and PUD (hx) Negative for: abdominal pain, dysphagia, hepatitis, inflammatory bowel disease, liver disease, nausea, pancreatitis, vomiting and ETOH >2 drinks/day. : No history of dysuria, frequency or incontinence, stones or chronic kidney disease. No difficulty urinating, nocturia > 1 time per night or hematuria. GLUER AND SLICER HAND: Negative for abnormal vaginal bleeding, abnormal vaginal discharge. Endocrine: +following endo +prediabetes, Jardiance Negative for: hypothyroidism. Hematology: No history of bleeding or clotting disorder. Patient is not taking anti-coagulation or platelet medications. No history of hematological symptoms or problems. Oncology: SCC s/p excision Psych: No history of psychiatric symptoms or problems. Musculoskeletal: See HPI. +right shoulder arthroscopy +left CTS release Positive for: joint pain (left shoulder). Skin: Dry skin Implanted Devices: No implanted devices. PAST MEDICAL HISTORY Diagnosis Date Essential hypertension 02/16/2016 Since 2005. Family history of colon cancer 02/16/2016 Lateral epicondylitis of both elbows 02/16/2016 Medial epicondylitis of right elbow 02/16/2016 Menorrhagia submucous fibroids Non morbid obesity due to excess calories 02/16/2016 Prediabetes 02/16/2016 Skin cancer PAST SURGICAL HISTORY Procedure Laterality Date COLONOSCOPY FLX DX W/COLLJ SPEC WHEN PFRMD 11/18/2010 Colonoscopy COLONOSCOPY SCREENING 07/03/2020 repeat 5 years recommended LAPAROSCOPY SURG CHOLECYSTECTOMY 09/11/2000 Cholecystectomy, lap PAST SURGICAL HISTORY OF Right 2023 right calf skin cancer removal PAST SURGICAL HISTORY OF 2023 Skin cancer removed from right calf REVISE MEDIAN N/CARPAL TUNNEL SURG Left 07/16/2024 SALPINGECTOMY 03/06/2017 SHOULDER SURGERY HX Right 02/27/2019 TOTAL ABDOM HYSTERECTOMY 03/06/2017 TUBAL LIGATION HX 09/11/2004 FAMILY HISTORY Problem Relation Age of Onset None Mother GI Father diverticulitis, recurrent Hypertension Father Diabetes Father Colon Cancer Father other (stomach cancer) Father No Known Problems Brother No Known Problems Brother Cancer Maternal Grandmother lung cancer Alzheimer's Disease Paternal Grandmother Colon Cancer Paternal Grandfather Dementia Maternal Aunt Social History Tobacco Use Smoking status: Never Smokeless tobacco: Never Vaping Use Vaping status: Never Used Substance Use Topics Alcohol use: Yes Comment: rare Drug use: No Prior to Admission medications as of 08/28/24 1102 Medication Sig Last Dose Taking ezetimibe (ZETIA) 10 mg tablet Take 1 tablet by mouth every afternoon. Taking Yes dilTIAZem CD (CARDIZEM CD, CARTIA XT) 120 mg 24 hr capsule Take 1 capsule by mouth once daily. Taking Yes JARDIANCE 10 mg tablet Taking Yes URSODIOL ORAL Taking 300 mg daily Taking Yes losartan (COZAAR) 50 mg tablet Take 1 tablet by mouth every afternoon. Taking Yes ergocalciferol, vitamin D2, (VITAMIN D2 ORAL) Take 1,000 Units by mouth once daily. Taking Yes No medication comments found. ALLERGIES Allergen Reactions Reglan [Metoclopram* Mental Status Change Objective PHYSICAL EXAM: General: alert and oriented (x3), healthy appearance and obese. Pertinent negatives noted - not distressed. Skin: normal color, no rash or lesions. HEENT: EOM intact and pupils equal round. Pertinent negatives noted - no carotid bruit. Cardiovascular: regular rate and rhythm, normal S1 and S2, no rub, murmurs, or gallop. Respiratory: normal breath sounds, no wheezes or crackles. No chest wall deformity or tenderness. Abdomen: soft. Pertinent negatives noted - not tender. Extremities: no deformity, no edema or tenderness, no joint swelling or clubbing. Neurological: normal cognition and motor skills. Gait normal. No weakness or sensory deficit. PAIN ASSESSMENT: VITALS: BP 118/84 Pulse 68 Temp (Src) 96.6 (Temporal) Resp 16 Ht 5' 4 (1.63m) Wt 228 lb (103.4kg) SpO2 98% LMP 03/21/2016 BMI 39.12 kg/(m^2). Diagnostic tests reviewed for today's visit: Lab Value Units Date High Low HB 15.2 g/dL 08/28/2024 15.5 11.5 HCT 46.3 % 08/28/2024 46.0 36.0 WBC 6.60 k/uL 08/28/2024 11.00 3.70 PLT 232 k/uL 08/28/2024 400 150 NA 141 mmol/L 08/28/2024 144 136 K 4.7 mmol/L 08/28/2024 5.1 3.7 GLUC 152 mg/dL 08/28/2024 99 74 BUN 14 mg/dL 08/28/2024 21 7 CREAT 0.83 mg/dL 08/28/2024 0.96 0.58 PTSEC No results within date range. INR No results within date range. APTT No results within date range. ALT 31 U/L 08/28/2024 38 7 AST 13 U/L 08/28/2024 35 13 TBILI 0.3 mg/dL 08/28/2024 1.3 0.2 TSH No results within date range. Lab Value Units Date High Low HCGQT No results within date range. UHCG No results within date range. HCG, BODY* No results within date range. Lab Value Units Date High Low ABORHD No results within date range. ABSCREEN No results within date range. No results found for: HBA1C Recent Results (from the past 8760 hour(s)) ECG COMPLETE Collection Time: 06/21/24 9:28 AM Result Value Ventricular Rate 69 Atrial Rate 69 P-R Interval 164 QRS Duration 80 QT Interval 410 QTC Calculation (Bazett) 439 Calculated P Porter[place] 22 Calculated R [place] 3 Calculated T [place] 30 Impression NORMAL SINUS RHYTHM NORMAL ECG Confirmed by MD JOHNSON GREGORY () on 06/24/2024 10:45:17 AM No results found for this or any previous visit (from the past 30208 hour(s)). Instructions Given to Patient: Instructions located in the after visit summary. Patient given verbal and written preop instructions and voices comprehension and compliance. SIGNATURE: Efrain Hodges APRN.CNP PATIENT NAME: Ernestina Wade DATE: August 28, 2024 TIME: 8:51 AM PAGER/CONTACT #: documented in this [facility] Instructions* Patient Instructions* Efrain Hodges APRN.CNP - 08/28/2024 8:51 AM EST Images from the original note were not included. [facility] PATIENT PREOPERATIVE INSTRUCTIONS Domonique Hoang,* has scheduled you for your procedure at this surgery center: [facility]: [phone] -- [address] [place] [address]. Please read below carefully for your personalized instructions. Dietary Restrictions: - No solid food after midnight. - You may have 12 ounces of clear liquids (water, clear juices such as apple juice or gatorade, carbonated beverages, clear tea, black coffee, jello) until 2 hours before scheduled arrival at facility. No red/purple coloring and no creamer/sugar Medications: Unless instructed differently below, stay on all of your medications until your surgery. If you start any new medications after today's visit, please contact your surgeon. Pre-Surgery Med Instructions Medication Instructions ezetimibe (ZETIA) 10 mg tablet Take the day of surgery with a small sip of water dilTIAZem CD (CARDIZEM CD, CARTIA XT) 120 mg 24 hr capsule Take the day of surgery with a small sipof water JARDIANCE 10 mg tablet Stop 3 days before surgery URSODIOL ORAL Do not take the day of surgery losartan (COZAAR) 50 mg tablet Take the day of surgery with a small sip of water ergocalciferol, vitamin D2, (VITAMIN D2 ORAL) Stop 7 days before surgery If you start any new medications after today's visit, please contact the surgeon's office. If you are currently using a [id number]-[id number] injectable or oral medication for diabetes or weight loss such as Dulaglutide (Trulicity), Exenatide (Byetta, Bydureon), Liraglutide (Victoza, Saxenda), Semaglutide (Ozempic, Wegovy, Rybelsus), or Tirzepatide (Mounjaro), the medicine should be stopped at least 7 days before surgery. These medicines can cause food to remain in your stomach for a very longtime and increase the risks from surgery and anesthesia. Not stopping the medication for a long enough time may result in your surgery being rescheduled. Blood Thinning Medications: - Stop NSAIDS (Ibuprofen, Advil, Aleve, Motrin, Celebrex, Mobic, etc.) 7 days before surgery, as directed by your surgeon. - Stop Aspirin 7 days before surgery, as directed by your surgeon. - Stop ALL herbal and dietary supplements 7 days before surgery. - You may take Tylenol (Acetaminophen) or any of your pain medications that do not contain aspirin or NSAIDS as needed. Important Reminders: - Candy, mints, and tobacco products are NOT permitted the morning of surgery. - Hearing aids, dentures and glasses may be worn the morning of surgery. - NO jewelry, body piercings, makeup, hairpins or contacts are to be worn the day of surgery. If you develop symptoms such as a fever, cold, or flu, or have other changes to your health within TWO DAYS of scheduled surgery or the morning of surgery, please contact the surgery center above. Personal Belongings: -Please have photo ID and insurance cards. -If you do not have a copy of advance directives on file with us, please bring a copy with you on the day of surgery. - Leave ALL valuables and money at home or with family members. - Please bring high-quality footwear, such as sneakers, to the hospital for ambulating post-surgery. For Outpatient Procedures: - YOU MUST HAVE A RESPONSIBLE COPY COORDINATOR TAKE YOU HOME. A ASSOCIATE THEATRE PROFESSOR OR MACHINE SHOP INSTRUCTOR CANNOT BE MADE A RESPONSIBLE COPY COORDINATOR. - We recommend that a responsible person stays with you overnight to take care of you. - You cannot stay in a hotel alone after outpatient surgery. You will not be permitted to have yoursurgery, if you do not have someone to take care of you. Arrival Time for Surgery: - The Surgery Center or hospital where you are having surgery will call the afternoon before surgery (or Monday for Monday surgery) with a scheduled arrival time. - If you have not heard by 4 pm, please contact the surgery center above. Please be aware that emergency situations arise, which may delay or change your surgical time. If this happens, we will notify you as soon as possible and regret any inconvenience. If you already have an Advance Directive, please fax a copy to [phone] or email to for it to be added to your chart. If you do not have an Advance Directive, you can find the appropriate form and more information at [email or web address]. We recommend that youcomplete the Advance Directive form found on the website and bring it with you the day of your surgery. It can be witnessed and scanned into your chart that day. Efrain Hodges APRN.CNP documented in this encounterPrem[facility]12-12-2024 NoteHNO ID: [id number] Author: YURY STEEL MD Service: ? 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 Ernestina Wade is a 54 year old female who presents for pelvic exam. HPI: Had annual exam several months ago. Did not do pelvic exam at that time per patient request given GI symptoms and illness. She offers no new complaints today. 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 Family history of colon cancer 02/16/2016 Lateral epicondylitis of both elbows 02/16/2016 Medial epicondylitis of right elbow 02/16/2016 Menorrhagia submucous fibroids Non morbid obesity due to excess calories 02/16/2016 Prediabetes 02/16/2016 Skin cancer PAST SURGICAL HISTORY Procedure Laterality Date COLONOSCOPY FLX DX W/COLLJ SPEC WHEN PFRMD 11/18/2010 Colonoscopy COLONOSCOPY SCREENING 07/03/2020 repeat 5 years recommended LAPAROSCOPY SURG CHOLECYSTECTOMY 09/11/2000 Cholecystectomy, lap PAST SURGICAL HISTORY OF Right 2023 right calf skin cancer removal PAST SURGICAL HISTORY OF 2023 Skin cancer removed from right calf REVISE MEDIAN N/CARPAL TUNNEL SURG Left 07/16/2024 SALPINGECTOMY 03/06/2017 SHOULDER SURGERY HX Right 02/27/2019 TOTAL ABDOM HYSTERECTOMY 03/06/2017 TUBAL LIGATION HX 09/11/2004 FAMILY HISTORY Problem Relation Age of Onset None Mother GI Father diverticulitis, recurrent Hypertension Father Diabetes Father Colon Cancer Father other (stomach cancer) Father No Known Problems Brother No Known Problems Brother Cancer Maternal Grandmother lung cancer Alzheimer's Disease Paternal Grandmother Colon Cancer Paternal Grandfather Dementia Maternal Aunt Social History Tobacco Use Smoking status: Never Smokeless tobacco: Never Vaping Use Vaping status: Never Used Substance Use Topics Alcohol use: Yes Comment: rare Drug use: No Current Outpatient Medications Medication Sig ezetimibe (ZETIA) 10 mg tablet Take 1 tablet by mouth every afternoon. dilTIAZem CD (CARDIZEM CD, CARTIA XT) 120 mg 24 hr capsule Take 1 capsule by mouth once daily. JARDIANCE 10 mg tablet URSODIOL ORAL Taking 300 mg daily losartan (COZAAR) 50 mg tablet Take 1 tablet by mouth every afternoon. ergocalciferol, vitamin D2, (VITAMIN D2 ORAL) Take 1,000 Units by mouth once daily. OZEMPIC 0.25 mg or 0.5 mg (2 mg/3 mL) pen 0.5 MG (0.8 ML) SUBCUTANEOUSLY EVERY WEEK (Patient not taking: Reported on 06/21/2024) No current facility-administered medications for this visit. Allergies As of Date: 08/22/2024 Allergen Noted Reaction REGLAN [METOCLOPRAMIDE HCL] 12/15/2015 Mental Status Change Fully Assessed 08/22/2024 REVIEW OF SYSTEMS Abdomen: No abdominal pain, nausea, vomiting, diarrhea, or constipation. Expanded ROS: N/A Allergies and current medication updated:Yes SENSITIVE EXAM: The sensitive examination was discussed with the Patient or Patient's Authorized Review Manager. As applicable, any other physician, advance practice provider, medical student, or other health professional student that will be observing or involved in the sensitive examination for educational or training purposes was discussed with the Patient or Authorized Review Manager. The Patient or Authorized Review Manager has agreed to proceed with the sensitive examination. (Sensitive examination includes inspection and/or palpation of the breasts, pelvis, prostate and anorectal regions). EXAM: BP 114/80 Wt 227 lb 9.6 oz (103.2kg) LMP 03/21/2016 GENERAL: pleasant, female in no apparent distress HEENT: Normocephalic and atraumatic NECK: full range of motion DERMATOLOGY: Normal and without lesions BREAST: deferred CHEST: Normal inspiratory effort ABDOMEN: Non distended PELVIC: external genitalia normal, normal Bartholin's glands, urethra, [place]'s glands, no vulvar lesions, good vaginal support, physiologic discharge present, normal appearing perineal body and perianal region BIMANUAL: no adnexal masses and non-tender NEURO: exam grossly non-focal EXTREMITIES: normal ASSESSMENT AND PLAN: Assessment AND Plan History of hysterectomy Pelvic exam normal today. Scheduled for mammogram. RTO annual exam and PRN. 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 Ernestina Wade is a 54 year old female who presents for pelvic exam. HPI: Had annual exam several months ago. Did not do pelvic exam at that time per patient request given GI symptoms and illness. She offers no new complaints today. 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 Family history of colon cancer 02/16/2016 Lateral epicondylitis of both elbows 02/16/2016 Medial epicondylitis of right elbow 02/16/2016 Menorrhagia submucous fibroids Non morbid obesity due to excess calories 02/16/2016 Prediabetes 02/16/2016 Skin cancer PAST SURGICAL HISTORY Procedure Laterality Date COLONOSCOPY FLX DX W/COLLJ SPEC WHEN PFRMD 11/18/2010 Colonoscopy COLONOSCOPY SCREENING 07/03/2020 repeat 5 years recommended LAPAROSCOPY SURG CHOLECYSTECTOMY 09/11/2000 Cholecystectomy, lap PAST SURGICAL HISTORY OF Right 2023 right calf skin cancer removal PAST SURGICAL HISTORY OF 2023 Skin cancer removed from right calf REVISE MEDIAN N/CARPAL TUNNEL SURG Left 07/16/2024 SALPINGECTOMY 03/06/2017 SHOULDER SURGERY HX Right 02/27/2019 TOTAL ABDOM HYSTERECTOMY 03/06/2017 TUBAL LIGATION HX 09/11/2004 FAMILY HISTORY Problem Relation Age of Onset None Mother GI Father diverticulitis, recurrent Hypertension Father Diabetes Father Colon Cancer Father other (stomach cancer) Father No Known Problems Brother No Known Problems Brother Cancer Maternal Grandmother lung cancer Alzheimer's Disease Paternal Grandmother Colon Cancer Paternal Grandfather Dementia Maternal Aunt Social History Tobacco Use Smoking status: Never Smokeless tobacco: Never Vaping Use Vaping status: Never Used Substance Use Topics Alcohol use: Yes Comment: rare Drug use: No Current Outpatient Medications Medication Sig ezetimibe (ZETIA) 10 mg tablet Take 1 tablet by mouth every afternoon. dilTIAZem CD (CARDIZEM CD, CARTIA XT) 120 mg 24 hr capsule Take 1 capsule by mouth once daily. JARDIANCE 10 mg tablet URSODIOL ORAL Taking 300 mg daily losartan (COZAAR) 50 mg tablet Take 1 tablet by mouth every afternoon. ergocalciferol, vitamin D2, (VITAMIN D2 ORAL) Take 1,000 Units by mouth once daily. OZEMPIC 0.25 mg or 0.5 mg (2 mg/3 mL) pen 0.5 MG (0.8 ML) SUBCUTANEOUSLY EVERY WEEK (Patient not taking: Reported on 06/21/2024) No current facility-administered medications for this visit. Allergies As of Date: 08/22/2024 Allergen Noted Reaction REGLAN [METOCLOPRAMIDE HCL] 12/15/2015 Mental Status Change Fully Assessed 08/22/2024 REVIEW OF SYSTEMS Abdomen: No abdominal pain, nausea, vomiting, diarrhea, or constipation. Expanded ROS: N/A Allergies and current medication updated:Yes SENSITIVE EXAM: The sensitive examination was discussed with the Patient or Patient's Authorized Review Manager. As applicable, any other physician, advance practice provider, medical student, or other health professional student that will be observing or involved in the sensitive examination for educational or training purposes was discussed with the Patient or Authorized Review Manager. The Patient or Authorized Review Manager has agreed to proceed with the sensitive examination. (Sensitive examination includes inspection and/or palpation of the breasts, pelvis, prostate and anorectal regions). EXAM: BP 114/80 Wt 227 lb 9.6 oz (103.2kg) LMP 03/21/2016 GENERAL: pleasant, female in no apparent distress HEENT: Normocephalic and atraumatic NECK: full range of motion DERMATOLOGY: Normal and without lesions BREAST: deferred CHEST: Normal inspiratory effort ABDOMEN: Non distended PELVIC: external genitalia normal, normal Bartholin's glands, urethra, [place]'s glands, no vulvar lesions, good vaginal support, physiologic discharge present, normal appearing perineal body and perianal region BIMANUAL: no adnexal masses and non-tender NEURO: exam grossly non-focal EXTREMITIES: normal ASSESSMENT AND PLAN: Assessment & Plan History of hysterectomy Pelvic exam normal today. Scheduled for mammogram. RTO annual exam and PRN. Yury Steel DO Medical Decision Making: Problems: Low: Stable chronic illness Medical Decision Making Level: 2 - Straightforward documented in this encounterPrem[facility]12-10-2024 Telephone encounter Note * Telephone Encounter - Ten Shepherd RN - 08/20/2024 4:37 PM EST Screening mammogram (completed 08/16/23), ABD limited w/elastography (completed on 03/06/24), & MRI of left shoulder (completed 04/10/24) received from [facility] and placed in inbox for review. Ten Shepherd RN [facility]12-10-2024 Miscellaneous Notes* Telephone Encounter - Ten Shepherd RN - 08/20/2024 4:37 PM EST Screening mammogram (completed 08/16/23), ABD limited w/elastography (completed on 03/06/24), & MRI of left shoulder (completed 04/10/24) received from [facility] and placed in inbox for review. Ten Shepherd RN documented in this encounterPremier Health [facility]12-10-2024 Evaluation note* Diagnosis Onset Date Resolution Status Admit Date Diarrhea chronic August 20, 2024 9:52am Gastric reflux chronic August 112023 9:52am Metabolic dysfunction-associated steatotic liver disease (MASLD) chronic August 20, 024 9:52am [facility] Work Phone: 1(853) 274-743111-18-2024 NoteHNO ID: [id number] Author: ANTHONY STONE PA-C Service: ? 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 Wade presents today for her 10-14 day visit from: left [facility] on 07/16/[address] Hoang. Patient also had right carpal tunnel injection at that time. Post Op and Pain of the Left Hand History: PAIN EVALUATION 07/29/2024 1218 Pain Level: 2 Pain Location: Hand-Left Description: Sore Duration Amount of Time: 13 07/16/24 Duration Units: Days Frequency: Intermittent She is doing well postoperatively. Patients rates her condition as improving. Patient states their pre-operative left hand numbness and tingling is resolved. Reports right hand numbness has returned, tingling resolved. The patient denies warmth, discharge, drainage, fevers, chills, sweats. She reports compliance with wound care. The patient had a mechanical fall onto her left out stretched hand 6 days ago. Does not want x-rays. She reports no change in past medical AND surgical history, medications, allergies, social history, family history and review of systems since last visit, with the exception of the following: None Review of Systems All other systems reviewed and are negative. Radiographs: Not applicable Physical Examination: Left hand: Appropriate postop appearance No evidence of erythema, warmth, discharge or drainage Incision clean/dry/intact Sutures intact No tenderness to palpation about the hand, distal radius or ulna WF/WE and pronation/supination WNL without pain Positive median, ulna, and radial nerve function Positive distal pulses Able to make fist and extend all fingers Right hand: NVI PROCEDURE: Sutures removed from left hand and steri strips applied. This was well-tolerated without complication. Assessment and Plan: 54 year old female 2 weeks S/P left carpal tunnel release Gradually advance activities as tolerated. Discussed that numbness can take several weeks to months after surgery to completely resolve. Post op care discussed, all questions answered Follow up SOLEDAD Stone PA-C [facility] History of Present illness Narrative* Anthony Stone PA-C - 07/29/2024 2:19 PM EST Images from the original note were not included. POST OP Ms. Wade presents today for her 10-14 day visit from: left [facility] on 07/16/[address] Hoang. Patient also had right carpal tunnel injection at that time. Post Op and Pain of the Left Hand History: PAIN EVALUATION 07/29/2024 1218 Pain Level: 2 Pain Location: Hand-Left Description: Sore Duration Amount of Time: 13 07/16/24 Duration Units: Days Frequency: Intermittent She is doing well postoperatively. Patients rates her condition as improving. Patient states their pre-operative left hand numbness and tingling is resolved. Reports right hand numbness has returned, tingling resolved. The patient denies warmth, discharge, drainage, fevers, chills, sweats. She reports compliance with wound care. The patient had a mechanical fall onto her left out stretched hand 6 days ago. Does not want x-rays. She reports no change in past medical & surgical history, medications, allergies, social history, family history and review of systems since last visit, with the exception of the following: None Review of Systems All other systems reviewed and are negative. Radiographs: Not applicable Physical Examination: Left hand: Appropriate postop appearance No evidence of erythema, warmth, discharge or drainage Incision clean/dry/intact Sutures intact No tenderness to palpation about the hand, distal radius or ulna WF/WE and pronation/supination WNL without pain Positive median, ulna, and radial nerve function Positive distal pulses Able to make fist and extend all fingers Right hand: NVI PROCEDURE: Sutures removed from left hand and steri strips applied. This was well-tolerated without complication. Assessment and Plan: 54 year old female 2 weeks S/P left carpal tunnel release Gradually advance activities as tolerated. Discussed that numbness can take several weeks to months after surgery to completely resolve. Post op care discussed, all questions answered Follow up PRN Dave Stone PA-C Orthopaedic Surgery [facility] NoteHNO ID: [id number] Author: ROSE JEONG RN Service: Nursing Author Type: Registered Nurse Type: Nursing Progress Note Filed: 07/16/2024 12:33 Note Text: Other: pt ready for OR, call light in reach. Spouse called to bedside.[facility] NoteHNO ID: [id number] Author: REJI MEYERS APRN.CNP Service: General Surgery Author Type: Nurse Practitioner Type: Progress Notes Filed: 07/04/2024 15:35 Note Text: Ernestina Wade's medication list was reviewed and patient was noted to be taking Jardiance per patient chart. The patient was instructed per PAT note from 06/21/2024 to stop taking medication 3 days prior to surgery date of 07/16/2024. SIGNATURE: Reji Meyers APRN.CNP PATIENT NAME: Ernestina Wade DATE: July 04, 2024 [id number] Telephone encounter Note* Telephone Encounter - Rose Stoner LPN - 06/26/2024 10:57 AM EDT Received Endocrinology office visit including A1c result. Scanned into [facility] through Onbase scanning, Rose Stoner LPN [facility]10-16-2024 Miscellaneous Notes* Telephone Encounter - Rose Stoner LPN - 06/26/2024 10:57 AM EDT Received Endocrinology office visit including A1c result. Scanned into [facility] through Onbase scanning, Rose Stoner LPN * Telephone Encounter - Rose Stoner LPN - 06/26/2024 8:27 AM EDT Fax request sent to Dr. Montana's office for upcoming A1c to be faxed for surgery 07/16/24. .Rose Stoner LPN * Telephone Encounter - Efrain Hodges APRN.CNP - 06/25/2024 12:22 PM EDT Please request most recent [facility]24 Telephone encounter Note * Telephone Encounter - Rose Stoner LPN - 06/26/2024 8:27 AM EDT Fax request sent to Dr. Montana's office for upcoming A1c to be faxed for surgery 07/16/24. .Rose Stoner LPN [facility]10-15-[facility]24 Telephone encounter Note* Telephone Encounter - Efrain Hodges APRN.CNP - 06/25/2024 12:22 PM EDT Please request most recent A1c from [facility] or [facility]10-11-[facility] Instructions* Patient Instructions* Efrain Hodges APRN.CNP - 06/21/2024 8:24 AM EDT Images from the original note were not included. [facility] PATIENT PREOPERATIVE INSTRUCTIONS Domonique Hoang,* has scheduled you for your procedure at this surgery center: [facility]: [phone] -- [address] [place] [address]. Please read below carefully for your personalized instructions. Dietary Restrictions: - No solid food after midnight. - You may have 12 ounces of clear liquids (water, clear juices such as apple juice or gatorade, carbonated beverages, clear tea, black coffee, jello) until 2 hours before scheduled arrival at facility. No red/purple coloring and no creamer/sugar Medications: Unless instructed differently below, stay on all of your medications until your surgery. If you start any new medications after today's visit, please contact your surgeon. Pre-Surgery Med Instructions Medication Instructions ezetimibe (ZETIA) 10 mg tablet Take the day of surgery with a small sip of water dilTIAZem CD (CARDIZEM CD, CARTIA XT) 120 mg 24 hr capsule Take the day of surgery with a small sipof water JARDIANCE 10 mg tablet Stop 3 days before surgery URSODIOL ORAL Do not take the day of surgery losartan (COZAAR) 50 mg tablet Do not take the day of surgery ergocalciferol, vitamin D2, (VITAMIN D2 ORAL) Stop 7 days before surgery If you start any new medications after today's visit, please contact the surgeon's office. Blood Thinning Medications: - Stop NSAIDS (Ibuprofen, Advil, Aleve, Motrin, Celebrex, Mobic, etc.) 7 days before surgery, as directed by your surgeon. - Stop Aspirin 7 days before surgery, as directed by your surgeon. - Stop Vitamin E, ALL multi-vitamins, herbals and dietary supplements 7 days before surgery. - You may take Tylenol (Acetaminophen) or any of your pain medications that do not contain aspirin or NSAIDS as needed. Important Reminders: - Candy, mints, and tobacco products are NOT permitted the morning of surgery. - Hearing aids, dentures and glasses may be worn the morning of surgery. - NO jewelry, body piercings, makeup, hairpins or contacts are to be worn the day of surgery. If you develop symptoms such as a fever, cold, or flu, or have other changes to your health within TWO DAYS of scheduled surgery or the morning of surgery, please contact the surgery center above. Personal Belongings: -Please have photo ID and insurance cards. -If you do not have a copy of advance directives on file with us, please bring a copy with you on the day of surgery. - Leave ALL valuables and money at home or with family members. For Outpatient Procedures: - YOU MUST HAVE A RESPONSIBLE COPY COORDINATOR TAKE YOU HOME. A ASSOCIATE THEATRE PROFESSOR OR MACHINE SHOP INSTRUCTOR CANNOT BE MADE A RESPONSIBLE COPY COORDINATOR. - We recommend that a responsible person stays with you overnight to take care of you. - You cannot stay in a hotel alone after outpatient surgery. You will not be permitted to have yoursurgery, if you do not have someone to take care of you. Arrival Time for Surgery: - The Surgery Center or hospital where you are having surgery will call the afternoon before surgery (or Monday for Monday surgery) with a scheduled arrival time. - If you have not heard by 4 pm, please contact the surgery center above. Please be aware that emergency situations arise, which may delay or change your surgical time. If this happens, we will notify you as soon as possible and regret any inconvenience. If you already have an Advance Directive, please fax a copy to [phone] or email to for it to be added to your chart. If you do not have an Advance Directive, you can find the appropriate form and more information at [email or web address]. We recommend that youcomplete the Advance Directive form found on the website and bring it with you the day of your surgery. It can be witnessed and scanned into your chart that day. Efrain Hodges APRN.ZAHIDA documented in this encounterPrem[facility]10-[facility] History and physical note * Efrain Hodges APRN.CNP - 06/21/2024 8:22 AM EDT Images from the original note were not included. [facility] HISTORY AND PHYSICAL EXAMINATION SERVICE DATE: 06/21/2024 SERVICE TIME: 12:27 PM PRIMARY CARE PHYSICIAN: Chikis Montana MD Assessment Patient has the following medical conditions which may affect holland-operative course: Essential hypertension Assessment: controlled on rx Last 14 BP Last 14 Encounter BP Readings: Date: BP: 06/21/2024 118/82 06/10/2024 120/82 08/28/2023 120/82 06/08/2023 120/80 03/28/2016 126/82 03/22/2016 122/84 02/16/2016 134/88 01/14/2016 114/82 12/15/2015 128/88 Mixed hyperlipidemia Assessment: on rx Prediabetes Assessment: weekly injectable and oral medication, instructed to hold weekly injectable 7 FULL days, pt verbalized understanding. [facility] Non morbid obesity due to excess calories Assessment: Body mass index is 39.14 kg/m . Harper Activity Status Index: METS: Climb a flight of stairs or walk up a hill (5.50 METs) DASI Score: 5.5 Patient denies any chest pain or undue shortness of breath with the above physical activity. Clinical Frailty Scale: 3. Well, with treated comorbid disease STOP-Bang Score: Snores loudly Has or is being treated for high blood pressure BMI greater than 35 kg/m^2 Patient over 50 years old Denies feeling tired, fatigued, or sleepy during the daytime Has not been observed to stop breathing or choking/gasping during sleep Does not have a large neck Non-male patient STOP-Bang Score: 4 [id number] Score: Age: <65 Sex: female CHF history: No Hypertension history: Yes Stroke/TIA/thromboembolism history: No Vascular disease history: No Diabetes history: Yes [id number] Score: 3 ARISCAT Score: Age: 51-80 Preoperative SpO2: >=96% Respiratory infection in the last month: No Preoperative anemia: No Surgical incision: peripheral Duration of surgery: <2 hrs Emergency procedure: No ARISCAT Score: 3 ANESTHESIA FINDINGS: Intubation History: No history of difficult intubation Significant Anesthesia Considerations: potential slow emergence Airway History: No history of difficult airway I - PHYSICAL EVALUATION AIRWAY Patient intubated: No. Tracheostomy tube not present Mallampati: III. TM distance: >3 FB. Neck ROM: full ROM without neurological symptoms. Mouth opening: adequate. Short neck: no. Thick neck: no Grijalva present: no Lip Bite Test: I Microretrognathia/Micronagthia/Recessed Chin: No DENTAL Dental findings: teeth intact. Additional comments: Implant/back. II - ANESTHESIA PLAN Anesthetic Plan: other Beta Shawanda Monitoring Plan Post Procedure Analgesic Plan Prepared for Surgery: optimally prepared for surgery. CONSULTS: Patient does not require consults for optimization at this time Planned Anesthetic: other anesthesia choice The Following Tests/Procedures Have Been Initiated: Orders Placed This Encounter ECG COMPLETE Standing Status: Future Standing Expiration Date: 06/21/2025 ECG COMPLETE Order Comments: Ordered by an unspecified provider REASON FOR VISIT: Ernestina Wade is a 54 year old female who is scheduled for Procedure(s): DECOMPRESSION NERVE MEDIAN CARPAL TUNNEL (Left) at the request of Dr. Domonique Hoang for consultation. My final recommendation will be communicated back to the requesting physician by way of shared medical record or letter. Subjective The patient has the following: COVID-19 Immunization Status Overdue - Covid-19 Vaccine () Overdue since 05/12/2024 09/16/2021 Imm Admin: COVID-19 vaccine (ROSEANNA) 11/20/2020 Imm Admin: COVID-19 vaccine (ROSEANNA) CHIEF COMPLAINT: Pre-op exam HPI: Ernestina Wade is a 54 year old seen for PAC due to scheduled above surgery because of CTS, left. 05/31/24, Dr. Domonique Hoang Patient presents with: Left Shoulder - Follow Up: Wants to go forward with surgery option and the details History of Present Illness PAIN EVALUATION 05/31/2024 0944 Pain Level: 1 Pain Location: Shoulder-Left Description: Aching;Sharp;Shooting;Sore Duration Amount of Time: 24 Duration Units: Hours Frequency: Continuous Intervention/Comfort measure: Medication;Reposition;Cold;Positioning Comments: Pain depends on what im doing. HPI: Ernestina Wade is a 54 year old female for a follow up visit left shoulder pain , left carpal tunnel. Pain history is noted as above. Denies calf pain, numbness, tingling, fever, chills or otherconstitutional symptoms. Is there any overall improvement in your condition? No Any new injury, since being seen last: No REVIEW OF SYSTEMS: General: No weight loss, malaise or fevers. Neurological: No history of TIA's, stroke, THERMIT WELDING MACHINE OPERATOR tumor, impaired sensorium, hemiplegia, paraplegia orquadraplegia. No neurological symptoms or problems. Respiratory: No history of current cough or dyspnea, or pneumonia in the past 6 weeks. No history of respiratory/pulmonary symptoms or problems. Cardiovascular: Positive for: arrhythmia (+palpitations, on rx), hyperlipidemia and hypertension Negative for: abdominal aortic aneurysm, AICD/PPM, angina, anticoagulation therapy, atrial fibrillation, CAD, chest pain, CHF, congenital heart defect, DVT/PE, recent WA, murmur/valvular heart disease, PTCA, PVD, open heart surgery and valve surgery. GI: +diarrhea, on rx Positive for: GERD (hx), irritable bowel syndrome and PUD (hx) Negative for: abdominal pain, dysphagia, hepatitis, inflammatory bowel disease, liver disease, nausea, pancreatitis, vomiting and ETOH >2 drinks/day. : No history of dysuria, frequency or incontinence, stones or chronic kidney disease. No difficulty urinating, nocturia > 1 time per night or hematuria. GLUER AND SLICER HAND: Negative for abnormal vaginal bleeding, abnormal vaginal discharge. Endocrine: +following endo +prediabetes, weekly injectable/Jardiance Negative for: hypothyroidism. Hematology: No history of bleeding or clotting disorder. Patient is not taking anti-coagulation or platelet medications. No history of hematological symptoms or problems. Oncology: SCC s/p excision Psych: No history of psychiatric symptoms or problems. Musculoskeletal: +right shoulder arthroscopy Positive for: joint pain (left shoulder). Skin: Dry skin PAST MEDICAL HISTORY Diagnosis Date Essential hypertension 02/16/2016 Since 2005. Family history of colon cancer 02/16/2016 Lateral epicondylitis of both elbows 02/16/2016 Medial epicondylitis of right elbow 02/16/2016 Menorrhagia submucous fibroids Non morbid obesity due to excess calories 02/16/2016 Prediabetes 02/16/2016 Skin cancer PAST SURGICAL HISTORY Procedure Laterality Date COLONOSCOPY FLX DX W/COLLJ SPEC WHEN PFRMD 11/18/2010 Colonoscopy COLONOSCOPY SCREENING 07/03/2020 repeat 5 years recommended LAPAROSCOPY SURG CHOLECYSTECTOMY 09/11/2000 Cholecystectomy, lap PAST SURGICAL HISTORY OF Right 2023 right calf skin cancer removal PAST SURGICAL HISTORY OF 2023 Skin cancer removed from right calf SALPINGECTOMY 03/06/2017 SHOULDER SURGERY HX Right 02/27/2019 TOTAL ABDOM HYSTERECTOMY 03/06/2017 TUBAL LIGATION HX 09/11/2004 FAMILY HISTORY Problem Relation Age of Onset None Mother GI Father diverticulitis, recurrent Hypertension Father Diabetes Father Colon Cancer Father other (stomach cancer) Father No Known Problems Brother No Known Problems Brother Cancer Maternal Grandmother lung cancer Alzheimer's Disease Paternal Grandmother Colon Cancer Paternal Grandfather Dementia Maternal Aunt Social History Tobacco Use Smoking status: Never Smokeless tobacco: Never Vaping Use Vaping status: Never Used Substance Use Topics Alcohol use: Yes Comment: rare Drug use: No Prior to Admission medications as of 06/25/24 1217 Medication Sig Last Dose Taking ezetimibe (ZETIA) 10 mg tablet Take 1 tablet by mouth every afternoon. Taking Yes dilTIAZem CD (CARDIZEM CD, CARTIA XT) 120 mg 24 hr capsule Take 1 capsule by mouth once daily. Taking Yes JARDIANCE 10 mg tablet Taking Yes URSODIOL ORAL Taking 300 mg daily Taking Yes losartan (COZAAR) 50 mg tablet Take 1 tablet by mouth every afternoon. Taking Yes ergocalciferol, vitamin D2, (VITAMIN D2 ORAL) Take 1,000 Units by mouth once daily. Taking Yes OZEMPIC 0.25 mg or 0.5 mg (2 mg/3 mL) pen 0.5 MG (0.8 ML) SUBCUTANEOUSLY EVERY WEEK Patient not taking: Reported on 06/21/2024 Not Taking No medication comments found. ALLERGIES Allergen Reactions Reglan [Metoclopram* Mental Status Change Objective PHYSICAL EXAM: General: alert and oriented (x3), healthy appearance and obese. Pertinent negatives noted - not distressed. Skin: normal color, no rash or lesions. HEENT: EOM intact and pupils equal round. Pertinent negatives noted - no carotid bruit. Cardiovascular: regular rate and rhythm, normal S1 and S2, no rub, murmurs, or gallop. Respiratory: normal breath sounds, no wheezes or crackles. No chest wall deformity or tenderness. Abdomen: soft. Pertinent negatives noted - not tender. Extremities: no deformity, no edema or tenderness, no joint swelling or clubbing. Neurological: normal cognition and motor skills. Gait normal. No weakness or sensory deficit. PAIN ASSESSMENT: VITALS: BP 118/82 Pulse 65 Temp (Src) 97.9 (Temporal) Resp 16 Ht 5' 4 (1.63m) Wt 228 lb (103.4kg) SpO2 98% LMP 03/21/2016 BMI 39.12 kg/(m^2). Diagnostic tests reviewed for today's visit: Lab Value Units Date High Low HB No results within date range. HCT No results within date range. WBC No results within date range. PLT No results within date range. NA No results within date range. K No results within date range. GLUC No results within date range. BUN No results within date range. CREAT No results within date range. PTSEC No results within date range. INR No results within date range. APTT No results within date range. ALT No results within date range. AST No results within date range. TBILI No results within date range. TSH No results within date range. Lab Value Units Date High Low HCGQT No results within date range. UHCG No results within date range. HCG, BODY* No results within date range. Lab Value Units Date High Low ABORHD No results within date range. ABSCREEN No results within date range. No results found for: HBA1C Recent Results (from the past 8760 hour(s)) ECG COMPLETE Collection Time: 06/21/24 9:28 AM Result Value Ventricular Rate 69 Atrial Rate 69 P-R Interval 164 QRS Duration 80 QT Interval 410 QTC Calculation (Bazett) 439 Calculated P [place] 22 Calculated R [place] 3 Calculated T [place] 30 Impression NORMAL SINUS RHYTHM NORMAL ECG Confirmed by MD JOHNSON GREGORY () on 06/24/2024 10:45:17 AM No results found for this or any previous visit (from the past 72112 hour(s)). Instructions Given to Patient: Instructions located in the after visit summary. Patient given verbal and written preop instructions and voices comprehension and compliance. SIGNATURE: Efrain Hodges APRN.CNP PATIENT NAME: Ernestina Wade DATE: June 21, 2024 TIME: 8:22 AM PAGER/CONTACT #: [facility] History and physical note* Efrain Hodges APRN.CNP - 06/21/2024 8:22 AM EDT Images from the original note were not included. [facility] HISTORY AND PHYSICAL EXAMINATION SERVICE DATE: 06/21/2024 SERVICE TIME: 12:27 PM PRIMARY CARE PHYSICIAN: Chikis Montana MD Assessment Patient has the following medical conditions which may affect holland-operative course: Essential hypertension Assessment: controlled on rx Last 14 BP Last 14 Encounter BP Readings: Date: BP: 06/21/2024 118/82 06/10/2024 120/82 08/28/2023 120/82 06/08/2023 120/80 03/28/2016 126/82 03/22/2016 122/84 02/16/2016 134/88 01/14/2016 114/82 12/15/2015 128/88 Mixed hyperlipidemia Assessment: on rx Prediabetes Assessment: weekly injectable and oral medication, instructed to hold weekly injectable 7 FULL days, pt verbalized understanding. [facility] Non morbid obesity due to excess calories Assessment: Body mass index is 39.14 kg/m . Harper Activity Status Index: METS: Climb a flight of stairs or walk up a hill (5.50 METs) DASI Score: 5.5 Patient denies any chest pain or undue shortness of breath with the above physical activity. Clinical Frailty Scale: 3. Well, with treated comorbid disease STOP-Bang Score: Snores loudly Has or is being treated for high blood pressure BMI greater than 35 kg/m^2 Patient over 50 years old Denies feeling tired, fatigued, or sleepy during the daytime Has not been observed to stop breathing or choking/gasping during sleep Does not have a large neck Non-male patient STOP-Bang Score: 4 [id number] Score: Age: <65 Sex: female CHF history: No Hypertension history: Yes Stroke/TIA/thromboembolism history: No Vascular disease history: No Diabetes history: Yes [id number] Score: 3 ARISCAT Score: Age: 51-80 Preoperative SpO2: >=96% Respiratory infection in the last month: No Preoperative anemia: No Surgical incision: peripheral Duration of surgery: <2 hrs Emergency procedure: No ARISCAT Score: 3 ANESTHESIA FINDINGS: Intubation History: No history of difficult intubation Significant Anesthesia Considerations: potential slow emergence Airway History: No history of difficult airway I - PHYSICAL EVALUATION AIRWAY Patient intubated: No. Tracheostomy tube not present Mallampati: III. TM distance: >3 FB. Neck ROM: full ROM without neurological symptoms. Mouth opening: adequate. Short neck: no. Thick neck: no Grijalva present: no Lip Bite Test: I Microretrognathia/Micronagthia/Recessed Chin: No DENTAL Dental findings: teeth intact. Additional comments: Implant/back. II - ANESTHESIA PLAN Anesthetic Plan: other Beta Shawanda Monitoring Plan Post Procedure Analgesic Plan Prepared for Surgery: optimally prepared for surgery. CONSULTS: Patient does not require consults for optimization at this time Planned Anesthetic: other anesthesia choice The Following Tests/Procedures Have Been Initiated: Orders Placed This Encounter ECG COMPLETE Standing Status: Future Standing Expiration Date: 06/21/2025 ECG COMPLETE Order Comments: Ordered by an unspecified provider REASON FOR VISIT: Ernestina Wade is a 54 year old female who is scheduled for Procedure(s): DECOMPRESSION NERVE MEDIAN CARPAL TUNNEL (Left) at the request of Dr. Domonique Hoang for consultation. My final recommendation will be communicated back to the requesting physician by way of shared medical record or letter. Subjective The patient has the following: COVID-19 Immunization Status Overdue - Covid-19 Vaccine () Overdue since 05/12/2024 09/16/2021 Imm Admin: COVID-19 vaccine (ROSEANNA) 11/20/2020 Imm Admin: COVID-19 vaccine (ROSEANNA) CHIEF COMPLAINT: Pre-op exam HPI: Ernestina Wade is a 54 year old seen for PAC due to scheduled above surgery because of CTS, left. 05/31/24, Dr. Domonique Hoang Patient presents with: Left Shoulder - Follow Up: Wants to go forward with surgery option and the details History of Present Illness PAIN EVALUATION 05/31/2024 0944 Pain Level: 1 Pain Location: Shoulder-Left Description: Aching;Sharp;Shooting;Sore Duration Amount of Time: 24 Duration Units: Hours Frequency: Continuous Intervention/Comfort measure: Medication;Reposition;Cold;Positioning Comments: Pain depends on what im doing. HPI: Ernestina Wade is a 54 year old female for a follow up visit left shoulder pain , left carpal tunnel. Pain history is noted as above. Denies calf pain, numbness, tingling, fever, chills or otherconstitutional symptoms. Is there any overall improvement in your condition? No Any new injury, since being seen last: No REVIEW OF SYSTEMS: General: No weight loss, malaise or fevers. Neurological: No history of TIA's, stroke, THERMIT WELDING MACHINE OPERATOR tumor, impaired sensorium, hemiplegia, paraplegia orquadraplegia. No neurological symptoms or problems. Respiratory: No history of current cough or dyspnea, or pneumonia in the past 6 weeks. No history of respiratory/pulmonary symptoms or problems. Cardiovascular: Positive for: arrhythmia (+palpitations, on rx), hyperlipidemia and hypertension Negative for: abdominal aortic aneurysm, AICD/PPM, angina, anticoagulation therapy, atrial fibrillation, CAD, chest pain, CHF, congenital heart defect, DVT/PE, recent [place], murmur/valvular heart disease, PTCA, PVD, open heart surgery and valve surgery. GI: +diarrhea, on rx Positive for: GERD (hx), irritable bowel syndrome and PUD (hx) Negative for: abdominal pain, dysphagia, hepatitis, inflammatory bowel disease, liver disease, nausea, pancreatitis, vomiting and ETOH >2 drinks/day. : No history of dysuria, frequency or incontinence, stones or chronic kidney disease. No difficulty urinating, nocturia > 1 time per night or hematuria. GLUER AND SLICER HAND: Negative for abnormal vaginal bleeding, abnormal vaginal discharge. Endocrine: +following endo +prediabetes, weekly injectable/Jardiance Negative for: hypothyroidism. Hematology: No history of bleeding or clotting disorder. Patient is not taking anti-coagulation or platelet medications. No history of hematological symptoms or problems. Oncology: SCC s/p excision Psych: No history of psychiatric symptoms or problems. Musculoskeletal: +right shoulder arthroscopy Positive for: joint pain (left shoulder). Skin: Dry skin PAST MEDICAL HISTORY Diagnosis Date Essential hypertension 02/16/2016 Since 2005. Family history of colon cancer 02/16/2016 Lateral epicondylitis of both elbows 02/16/2016 Medial epicondylitis of right elbow 02/16/2016 Menorrhagia submucous fibroids Non morbid obesity due to excess calories 02/16/2016 Prediabetes 02/16/2016 Skin cancer PAST SURGICAL HISTORY Procedure Laterality Date COLONOSCOPY FLX DX W/COLLJ SPEC WHEN PFRMD 11/18/2010 Colonoscopy COLONOSCOPY SCREENING 07/03/2020 repeat 5 years recommended LAPAROSCOPY SURG CHOLECYSTECTOMY 09/11/2000 Cholecystectomy, lap PAST SURGICAL HISTORY OF Right 2023 right calf skin cancer removal PAST SURGICAL HISTORY OF 2023 Skin cancer removed from right calf SALPINGECTOMY 03/06/2017 SHOULDER SURGERY HX Right 02/27/2019 TOTAL ABDOM HYSTERECTOMY 03/06/2017 TUBAL LIGATION HX 09/11/2004 FAMILY HISTORY Problem Relation Age of Onset None Mother GI Father diverticulitis, recurrent Hypertension Father Diabetes Father Colon Cancer Father other (stomach cancer) Father No Known Problems Brother No Known Problems Brother Cancer Maternal Grandmother lung cancer Alzheimer's Disease Paternal Grandmother Colon Cancer Paternal Grandfather Dementia Maternal Aunt Social History Tobacco Use Smoking status: Never Smokeless tobacco: Never Vaping Use Vaping status: Never Used Substance Use Topics Alcohol use: Yes Comment: rare Drug use: No Prior to Admission medications as of 06/25/24 1217 Medication Sig Last Dose Taking ezetimibe (ZETIA) 10 mg tablet Take 1 tablet by mouth every afternoon. Taking Yes dilTIAZem CD (CARDIZEM CD, CARTIA XT) 120 mg 24 hr capsule Take 1 capsule by mouth once daily. Taking Yes JARDIANCE 10 mg tablet Taking Yes URSODIOL ORAL Taking 300 mg daily Taking Yes losartan (COZAAR) 50 mg tablet Take 1 tablet by mouth every afternoon. Taking Yes ergocalciferol, vitamin D2, (VITAMIN D2 ORAL) Take 1,000 Units by mouth once daily. Taking Yes OZEMPIC 0.25 mg or 0.5 mg (2 mg/3 mL) pen 0.5 MG (0.8 ML) SUBCUTANEOUSLY EVERY WEEK Patient not taking: Reported on 06/21/2024 Not Taking No medication comments found. ALLERGIES Allergen Reactions Reglan [Metoclopram* Mental Status Change Objective PHYSICAL EXAM: General: alert and oriented (x3), healthy appearance and obese. Pertinent negatives noted - not distressed. Skin: normal color, no rash or lesions. HEENT: EOM intact and pupils equal round. Pertinent negatives noted - no carotid bruit. Cardiovascular: regular rate and rhythm, normal S1 and S2, no rub, murmurs, or gallop. Respiratory: normal breath sounds, no wheezes or crackles. No chest wall deformity or tenderness. Abdomen: soft. Pertinent negatives noted - not tender. Extremities: no deformity, no edema or tenderness, no joint swelling or clubbing. Neurological: normal cognition and motor skills. Gait normal. No weakness or sensory deficit. PAIN ASSESSMENT: VITALS: BP 118/82 Pulse 65 Temp (Src) 97.9 (Temporal) Resp 16 Ht 5' 4 (1.63m) Wt 228 lb (103.4kg) SpO2 98% LMP 03/21/2016 BMI 39.12 kg/(m^2). Diagnostic tests reviewed for today's visit: Lab Value Units Date High Low HB No results within date range. HCT No results within date range. WBC No results within date range. PLT No results within date range. NA No results within date range. K No results within date range. GLUC No results within date range. BUN No results within date range. CREAT No results within date range. PTSEC No results within date range. INR No results within date range. APTT No results within date range. ALT No results within date range. AST No results within date range. TBILI No results within date range. TSH No results within date range. Lab Value Units Date High Low HCGQT No results within date range. UHCG No results within date range. HCG, BODY* No results within date range. Lab Value Units Date High Low ABORHD No results within date range. ABSCREEN No results within date range. No results found for: HBA1C Recent Results (from the past 8760 hour(s)) ECG COMPLETE Collection Time: 06/21/24 9:28 AM Result Value Ventricular Rate 69 Atrial Rate 69 P-R Interval 164 QRS Duration 80 QT Interval 410 QTC Calculation (Bazett) 439 Calculated P [place] 22 Calculated R [place] 3 Calculated T [place] 30 Impression NORMAL SINUS RHYTHM NORMAL ECG Confirmed by MD JOHNSON GREGORY () on 06/24/2024 10:45:17 AM No results found for this or any previous visit (from the past 41626 hour(s)). Instructions Given to Patient: Instructions located in the after visit summary. Patient given verbal and written preop instructions and voices comprehension and compliance. SIGNATURE: Efrain Hodges APRN.CNP PATIENT NAME: Ernestina Wade DATE: June 21, 2024 TIME: 8:22 AM PAGER/CONTACT #: documented in this encounterPrem[facility]30[facility] Instructions* Patient Instructions* Yury Steel MD - 06/10/2024 1:16 PM EDT Calcium & Vitamin D: Calcium and vitamin D are good for bone building. Review your daily dietary intake of calcium and vitamin D. If you take less than 1200 mg of calcium in your diet each day, you should supplement your diet to take in a total of 1200 mg of calcium each day. If you have a history of kidney stones, speak with your physician before beginning supplementation. If you take in less than 600 IU of vitamin D in your diet each day, you should supplement your diet to take in a totalof 600 IU (800 IU for those over 70 years of age) each day. Good sources of calcium are green leafy vegetables such as spinach, maricel greens, kale and okra; dairy products such as milk, yogurt, and cheese; beans such as soy and white beans; some fish, including sardines, salmon, and trout. Some foods are fortified with calcium such as orange juice, some breakfast cereals, and oatmeal. Good sources of vitamin D include fish such as salmon and tuna, egg yolks, and foods fortified withvitamin D such as dairy products, cheese, orange juice, soy milk, and cereals. Excerpt from Ella RICHARDSON, Corby D, Kashif OLIVEIRA (eds.). Cancer Symptom Management. 4th ed. [place]olaFERMIN: [employer]; 2014. Lubricants and moisturizers list The obhh-ouj-walqlhf vaginal moisturizer and lubricant products can be confusing to sort through, especially since there are no FDA requirements for how they can be marketed or labeled. In general there are 3 categories of products: Vaginal lubricants should be used at the time of intercourse to decrease friction. Long acting vaginal moisturizers are used at least twice weekly to increase vaginal (internal) lubrication and elasticity. Vulvar moisturizers are for external use for vulvar comfort and do not impact vaginal lubrication or elasticity. Vaseline petroleum products and oils (baby oil, coconut, olive oil,) can make condoms break, so should not be used with condoms. In many women, these can cause infections. However, if you have sore spots on the vulva (outer lips), then petroleum jelly can sometimes be helpful. All of the products listed below are over the counter. Many can be bought in any drugstore or online. Also, many [employer] stores do carry high-quality lubricant products. VAGINAL LUBRICANTS: (For use during sexual activity) Lubricants should be applied to the outside and opening of the vagina at the time of sexual activity. The lubricant can also be applied to the penis or a device. Silicone based lubricants should not be used on silicone vibrators or toys. Both silicone and water based lubricants are condom compatible. If you use a water based lubricant, it is also important to choose a lubricant with low osmolality since lubricants with high osmolality increase the chance of irritation and infection. Osmolality information can be hard to find. All of the following lubricants have a low osmolality, are pH balanced, and are preservative free. WATER BASED LUBRICANTS Good Clean Love (made of organic ingredients) Pulse H2Oh! Sylk Natural System Vilma PreSeed (Does not impact sperm motility and can be used if trying to conceive, also good for those with multiple sensitivities, though may not work as well) SILICONE BASED LUBRICANTS Uber lube Replens Silky Smooth Pulse Aloe-ahh Wet [place] VILMA Premium Personal Lubricant PINK Silicone Lubricant SLIQUID Organics silk Pulse is a hands free personal lubricant warming dispenser and is sold with water or silicone basedlubricant pods that some women prefer for travel. LONG ACTING VAGINAL MOISTURIZERS: (For regular use inside vagina to maintain moisture) Long acting vaginal moisturizers should be used at least twice weekly on a regular basis. Many women find they need to use a moisturizer 3-5 times/week. In addition, it is important to not only applythe moisturizer inside the vagina, but also to apply to the vestibule (the external area surrounding the opening of the vagina). Women who are not sexually active often find that the regular use of along acting vaginal moisturizer makes them feel more comfortable. Vc++ Developer beware: many lubricants arelabeled as moisturizers to make them more appealing to consumers (even though they don t function as a true moisturizer). Replens Long Acting Vaginal Moisturizer (Available in all drugstores) HyaloGyn Vaginal Hydrating Gel (hybrid moisturizer, but can function as lubricant too) Revaree (hyaluronic acid) VULVAR MOISTURIZERS: (For external use) Replens Moisture Restore Comfort Gel is to be used externally for dry vulvar skin. Aquaphor can also be applied externally for comfort. [place] Aloe [place]: Many people are allergic to aloe, so keep this in mind with products like this that have aloe in it. Medicine Mama s V magic: Not much medical studies on this, but many patients swear by it, has oil, beeswax and honey in it- best used externally only. Non-Hormonal Ways to [place] with Hot Flashes and Menopause Hormone therapy is the most effective therapy for hot flashes. It is also the only FDA approved method to treat hot flashes. However, other non-hormonal options are available for women who are suffering from symptoms, but are not yet ready to consider hormone therapy. Some women are not appropriatecandidates for hormone therapy, such as those have been recently treated for breast cancer, ovariancancer, or endometrial/uterine cancer. It is important to remember that when used appropriately, hormone therapy can be a safe and effective option for many women. Here we will review non-hormonal treatment options for women. Knowing the triggers of hot flashes Hot flashes may be precipitated by hot weather, smoking, caffeine, spicy foods, alcohol, tight clothing, heat and stress. Identify and avoid your hot flash triggers. Some women notice hot flashes when they eat a lot of sugar. Exercising in warm temperatures might make hot flashes worse. Diet Avoiding caffeine, spicy foods, and alcohol can help lessen both the number and severity of hot flashes. Many women try to incorporate more plant estrogens into their diet. Plant estrogens, such as isoflavones, are thought to have weak estrogen-like effects that may reduce hot flashes. They may work in the body like a weak form of estrogen. Examples of plant estrogens include: soybeans, chickpeas, lentils, flaxseed, grains, beans, fruits, red clover and vegetables. In general, soybeans, chickpeas, and lentils are considered to have the most powerful plant estrogens, though their effect is much less than that of human estrogen. Try to choose natural foods rather than supplements. Also remember that only crushed or ground forms of flaxseed are likely to help (as compared to the whole seed or seed oil forms). What foods have high amounts of isoflavones Food Isoflavone Amount (Mg) In Food (100g) Soymilk 9.65 Soybeans, green, raw 151.17 Soy flour (textured) 148.61 148.61 Soybeans, dry roasted 128.35 Instant beverage soy, powder, not reconstituted 109.51 Miso soup mix, dry 60.39 Soybean chips 54.16 Tempeh, cooked 53.00 Soybean curd cheese 28.20 Tofu, silken 27.91 Tofu, yogurt 16.30 Source: [facility] -- [facility] Database on the Isoflavone Content of Foods, 1998 Lifestyle changes Reducing the temperature in a room, dressing in layers, and the use of a fan while asleep can be effective ways to help deal with troublesome hot flashes. Women who are overweight tend to have more bothersome hot flashes, therefore weight loss can be helpful. Quitting smoking has a dual importance during menopause. First, smoking contributes to the increased cardiovascular risks of being postmenopausal. Second, smokers tend to experience more hot flashes. Women who lead a sedentary life seem tosuffer more from hot flashes; however, it is best to exercise in a cooler environment. Try deep, slow abdominal breathing (6 to 8 breaths per minute). Practice deep breathing for 15 minutes in the morning, 15 minutes in the evening and at the onset of hot flashes. For some women, wearing socks to bed is helpful as it can help to cool core body temperature. Relieving insomnia Keep the bedroom cool to prevent night sweats. Avoid using sleeping pills. Exercise daily. Avoid caffeine and alcohol at night. Take a warm bath or shower at bedtime. Try milk products at bedtime or during the night (but avoid products that contain caffeine). Coping with mood swings, fears, and depression Find a self-calming skill to practice, such as yoga, meditation or slow, deep breathing. Avoid tranquilizers, if possible. Engage in a creative outlet that fosters a sense of achievement. Stay connected with your family and community; nurture your friendships. Relieving painful intercourse Try using a vaginal water-based moisturizing lotion or lubricant during intercourse. These are soldwithout a prescription near the condoms in most stores. Common names include-Astroglide and [place] liquid . Avoid Vaseline , as it may lead to yeast infections. Prescription and nonprescription remedies A number of non-hormonal remedies are available for the treatment of hot flashes. Some of these remedies (e.g., black cohosh and soy products) are available brry-puv-yzdkcnh but are not FDA-approved.Some prescription medications are used off label to help reduce hot flashes. Using a product off label means that it is not FDA approved for the treatment of hot flashes, but is often used because it can be safe and effective for hot flash treatment.(considered the more effective non-hormonal treatments): Drug Side Effect Effectiveness venlafaxine (Effexor ) Nausea, change in bowel habits, headache (temporary side effects for most). Elevated blood pressure (at high doses) Effectiveness has been proven in several well-designed studies. One of the safer medications for women taking tamoxifen (no drug interaction). desvenlafaxine (Pristiq ) Similar to venlafaxine. Nausea, change in bowel habits, headache (temporary side effectsfor most). Elevated blood pressure (at high doses) Improvement in hot flashes compared to placebo has been shown. Newer med compared to venlafaxine, so a smaller number of studies are available. fluoxetine (Prozac ) Nausea, change in bowel habits, decreased libido, insomnia. Should be avoided in women taking tamoxifen. Improvement in hot flashes has been shown in well-designed studies. paroxetine (Paxil ) Nausea, change in bowel habits, decreased libido, dry mouth, weight gain (not common) Should be avoided in women taking tamoxifen. eTends to be more effective for sleep in women who are alsosuffering with insomnia. Improvement in hot flashes has been shown in well-designed studies. scitalopram (Lexapro ) Nausea, change in bowel habits, decreased libido, abnormal EKG (not common) Improvement in hot flashes has been shown in well-designed studies. Gabapentin (Neurontin ) Fatigue, dizziness, nausea, disorientation, swelling, weight gain Tends to be more effective for sleep in women who are also suffering with insomnia. Clonidine (Catapres ) Dry mouth, drowsiness, fatigue, constipation, lowers blood pressure Relieved hot flashes in some, but not all studies.Less commonly used than some of the other options. Non-prescription, herbal, qzcf-uyt-njuosjz therapies: Drug Side Effects Effectiveness Evening [place] Oil Nausea, diarrhea, headache. Only one well-designed study showing not effective. Black cohosh Mild stomach upset. Safe up to 6 months only due to possible estrogen-like effects. Liver toxicity has been reported. Some small, short-term studies have suggested benefits, however moststudies do not suggest that it works. Soy (plant estrogen) Also referred to as phytoestrogens. Appears safe if consumed in foods. In supplement form, consistency of dose and quality can be a concern. Supplements are not recommended for breast cancer survivors For the most part, results from clinical studies show that phytoestrogens are not effective for treatment of hot flashes. Acupuncture Uncomfortable for some, often costly. Generally well-tolerated, but multiple visits required Individual trials have reported some benefits, but larger studies have not shown any improvement over placebo procedures. However some women do report benefits with this, so it is possible that more well- designed studies are needed to answer this question. Vitamin E 13% increase risk of heart failure. Might increase rate in those who use high dosesfor a long time. A higher risk of prostate cancer has also been shown, but applies only to men. Onestudy showing effective. However the improvement seen in this was only one less hot flash per day compared to placebo. Are the kiek-zca-hqklevo herbal products (botanicals) safe? While safe when taken in moderate amounts through diet, the consumption of extraordinary amounts ofsoy and isoflavone supplements may be harmful to women with a history of estrogen-dependent cancer,like breast cancer, and possibly to other women as well. More research is needed to determine the safety and effectiveness of botanical treatments. For example, Ginseng, [place], Wild yam, Progesterone cream, reflexology, and magnetic devices are sold tohelp menopausal symptoms, but there are no good studies looking at their safety or effectiveness. To make an informed decision about the use of these treatments, be sure to discuss them with your doctor. Because little is known about many botanicals, the best way to evaluate their safety and effectiveness is to become an educated consumer. Here are some tips to consider when shopping for alternative therapies. Ask yourself the following questions: What is the treatment? What does it involve? How does it work? Why does it work? Are there any risks? What are the side effects? Is it effective? (Ask for evidence or proof) How much does it cost? Once you answer these questions, discuss the therapy with your doctor. Make sure your doctor knows what therapy you are considering in order to discuss possible interactions or side effects with yourcurrent treatment. What are warning signs that a product may not be legitimate? When trying to determine whether or not a product is what it says it is, one of the elements you may want to look at is how the product is promoted. Be cautious of products promoted through: [employer] Direct mailings [employer] Ads disguised as valid news articles Ads in the back of magazines Additional red flags to look for include: Big claims: If products claim to be a cure for your condition, or gives outrageous claims, be cautious. Source: Be wary if the product is only offered through one trout farmer or purchased only through [facility] provider s office. Ingredients: Make sure all of the active ingredients are listed, and don t trust secret formulas. Testimonials: Remember that only people who are satisfied with a product give testimonials and thatthey may be getting paid for their endorsement References: National Center for Complementary and Alternative Medicine. Vitamin E. nccam.nih.gov Assessed 2012 Maribell Fried et al. meta-analysis: High Dosage Vitamin E. Supplementation Might Increase All Cause Mortality. Annals of Internal Medicine September 14, 2004. annals.org National Center for Complementary and Alternative Medicine. Menopausal Symptoms and CAM. nccam.nih.gov Accessed December 10, 2012 [place] Menopause [employer], Hormone Therapy for women in 2011. www.menopause.org Assessed December 10, 2012 [place] [employer]etricians and Gynecologists. Publications. The Menopause Years. www.acog.org Accessed 11/08/2010 Centers for Disease Control and Prevention. Women s Reproductive Health: Menopause. www.cdc.gov Accessed 11/08/2010 National [place] on Aging. Age Page: Menopause. www.vicki.nih.gov Accessed 11/08/2010 documented in this encounterPrem[facility] NoteHNO ID: [id number] Author: YURY STEEL MD Service: ? 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 Ernestina is a 54 year old who presents for an annual gynecologic exam without complaints. Vaginal dryness improved with lubricant. Skin dryness as well. Joint aches and pains. Has some stomach upset today and would like to reschedule pelvic exam. Postmenopausal: Yes HRT use: No. 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 Family history of colon cancer 02/16/2016 Lateral epicondylitis of both elbows 02/16/2016 Medial epicondylitis of right elbow 02/16/2016 Menorrhagia submucous fibroids Non morbid obesity due to excess calories 02/16/2016 Prediabetes 02/16/2016 Skin cancer PAST SURGICAL HISTORY Procedure Laterality Date COLONOSCOPY FLX DX W/COLLJ SPEC WHEN PFRMD 11/18/2010 Colonoscopy COLONOSCOPY SCREENING 07/03/2020 repeat 5 years recommended LAPAROSCOPY SURG CHOLECYSTECTOMY 09/11/2000 Cholecystectomy, lap PAST SURGICAL HISTORY OF Right 2023 right calf skin cancer removal PAST SURGICAL HISTORY OF 2023 Skin cancer removed from right calf SALPINGECTOMY 03/06/2017 SHOULDER SURGERY HX Right 02/27/2019 TOTAL ABDOM HYSTERECTOMY 03/06/2017 TUBAL LIGATION HX 09/11/2004 FAMILY HISTORY Problem Relation Age of Onset None Mother GI Father diverticulitis, recurrent Hypertension Father Diabetes Father Colon Cancer Father other (stomach cancer) Father No Known Problems Brother No Known Problems Brother Cancer Maternal Grandmother lung cancer Alzheimer's Disease Paternal Grandmother Colon Cancer Paternal Grandfather Dementia Maternal Aunt SOCIAL HISTORY Social History Tobacco Use Smoking status: Never Smokeless tobacco: Never Vaping Use Vaping status: Never Used Substance Use Topics Alcohol use: Yes Comment: rare Drug use: No REVIEW OF SYSTEMS Abdomen: No abdominal pain, nausea, vomiting, diarrhea, or constipation. No bloating, early satiety, indigestion, or increased flatulence. Bladder: No dysuria, gross hematuria, urinary frequency, urinary urgency, or incontinence Breast: No breast lumps, nipple d/c, overlying skin changes, redness or skin retraction Allergies and current medication updated:Yes SENSITIVE EXAM: The sensitive examination was discussed with the Patient or Patient's Authorized Review Manager. As applicable, any other physician, advance practice provider, medical student, or other health professional student that will be observing or involved in the sensitive examination for educational or training purposes was discussed with the Patient or Authorized Review Manager. The Patient or Authorized Review Manager has agreed to proceed with the sensitive examination. (Sensitive examination includes inspection and/or palpation of the breasts, pelvis, prostate and anorectal regions). EXAM: BP 120/82 Ht 5' 4 (1.63m) Wt 227 lb 3.2 oz (103.1kg) LMP 03/21/2016 BMI 38.98 kg/(m2). GENERAL: pleasant, female in no apparent distress HEENT: Normocephalic and atraumatic NECK: full range of motion DERMATOLOGY: Normal, without lesions, non-icteric, and non-hirsute BREAST: soft, non-tender, symmetric, no dominant mass, normal nipple-areolar complex, no lymphadenopathy, and no nipple discharge CHEST: Normal inspiratory effort ABDOMEN: Deferred PELVIC: deferred BIMANUAL: deferred RECTOVAGINAL: deferred. NEURO: exam grossly non-focal EXTREMITIES: normal ASSESSMENT/PLAN: 1) Health maintenance: Pap/HPV screening no longer needed Mammogram ordered Nutrition, exercise and routine health maintenance exams reviewed. Calcium/Vitamin D supplementation information provided. Colon cancer screening: up to date with screening TSH/lipids/glucose: followed by PCP Vitamin D: ordered 2) Follow up for mammogram and pelvic exam. [facility] History of Present illness Narrative* Yury Steel MD - 06/10/2024 12:56 PM EDT [employer] offered: Patient declines. Ernestina is a 54 year old who presents for an annual gynecologic exam without complaints. Vaginaldryness improved with lubricant. Skin dryness as well. Joint aches and pains. Has some stomach upset today and would like to reschedule pelvic exam. Postmenopausal: Yes HRT use: No. 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 Family history of colon cancer 02/16/2016 Lateral epicondylitis of both elbows 02/16/2016 Medial epicondylitis of right elbow 02/16/2016 Menorrhagia submucous fibroids Non morbid obesity due to excess calories 02/16/2016 Prediabetes 02/16/2016 Skin cancer PAST SURGICAL HISTORY Procedure Laterality Date COLONOSCOPY FLX DX W/COLLJ SPEC WHEN PFRMD 11/18/2010 Colonoscopy COLONOSCOPY SCREENING 07/03/2020 repeat 5 years recommended LAPAROSCOPY SURG CHOLECYSTECTOMY 09/11/2000 Cholecystectomy, lap PAST SURGICAL HISTORY OF Right 2023 right calf skin cancer removal PAST SURGICAL HISTORY OF 2023 Skin cancer removed from right calf SALPINGECTOMY 03/06/2017 SHOULDER SURGERY HX Right 02/27/2019 TOTAL ABDOM HYSTERECTOMY 03/06/2017 TUBAL LIGATION HX 09/11/2004 FAMILY HISTORY Problem Relation Age of Onset None Mother GI Father diverticulitis, recurrent Hypertension Father Diabetes Father Colon Cancer Father other (stomach cancer) Father No Known Problems Brother No Known Problems Brother Cancer Maternal Grandmother lung cancer Alzheimer's Disease Paternal Grandmother Colon Cancer Paternal Grandfather Dementia Maternal Aunt SOCIAL HISTORY Social History Tobacco Use Smoking status: Never Smokeless tobacco: Never Vaping Use Vaping status: Never Used Substance Use Topics Alcohol use: Yes Comment: rare Drug use: No REVIEW OF SYSTEMS Abdomen: No abdominal pain, nausea, vomiting, diarrhea, or constipation. No bloating, early satiety, indigestion, or increased flatulence. Bladder: No dysuria, gross hematuria, urinary frequency, urinary urgency, or incontinence Breast: No breast lumps, nipple d/c, overlying skin changes, redness or skin retraction Allergies and current medication updated:Yes SENSITIVE EXAM: The sensitive examination was discussed with the Patient or Patient's Authorized Review Manager. As applicable, any other physician, advance practice provider, medical student, or other health professional student that will be observing or involved in the sensitive examination for educational or training purposes was discussed with the Patient or Authorized Review Manager. The Patient or Authorized Review Manager has agreed to proceed with the sensitive examination. (Sensitive examination includes inspection and/or palpation of the breasts, pelvis, prostate and anorectal regions). EXAM: BP 120/82 Ht 5' 4 (1.63m) Wt 227 lb 3.2 oz (103.1kg) LMP 03/21/2016 BMI 38.98 kg/(m^2). GENERAL: pleasant, female in no apparent distress HEENT: Normocephalic and atraumatic NECK: full range of motion DERMATOLOGY: Normal, without lesions, non-icteric, and non-hirsute BREAST: soft, non-tender, symmetric, no dominant mass, normal nipple-areolar complex, no lymphadenopathy, and no nipple discharge CHEST: Normal inspiratory effort ABDOMEN: Deferred PELVIC: deferred BIMANUAL: deferred RECTOVAGINAL: deferred. NEURO: exam grossly non-focal EXTREMITIES: normal ASSESSMENT/PLAN: 1) Health maintenance: Pap/HPV screening no longer needed Mammogram ordered Nutrition, exercise and routine health maintenance exams reviewed. Calcium/Vitamin D supplementation information provided. Colon cancer screening: up to date with screening TSH/lipids/glucose: followed by PCP Vitamin D: ordered 2) Follow up for mammogram and pelvic exam. Yury Steel DO documented in this encounterPrem[facility] NoteHNO ID: [id number] Author: DOMONIQUE HOANG DO Service: ? Author Type: Physician Type: Progress Notes Filed: 05/31/2024 15:21 Note Text: Follow Up Visit Chief Complaint Ernestina Wade is a 54 year old female who presents today for follow up office visit. Patient presents with: Left Shoulder - Follow Up: Wants to go forward with surgery option and the details History of Present Illness PAIN EVALUATION 05/31/2024 0944 Pain Level: 1 Pain Location: Shoulder-Left Description: Aching;Sharp;Shooting;Sore Duration Amount of Time: 24 Duration Units: Hours Frequency: Continuous Intervention/Comfort measure: Medication;Reposition;Cold;Positioning Comments: Pain depends on what im doing. HPI: Ernestina Wade is a 54 year old female for a follow up visit left shoulder pain , left carpal tunnel. Pain history is noted as above. Denies calf pain, numbness, tingling, fever, chills or other constitutional symptoms. Is there any overall improvement in your condition? No Any new injury, since being seen last: No REVIEW OF SYMPTOMS: Patient did not have, and does not currently have, any weight loss, malaise, fever, chills, headache, chest pain, chest pressure, palpitations, cough, shortness of breath, orthopnea, paroxsymal nocturnal dyspnea, nausea, vomiting, diarrhea, constipation, melena, hematochezia, urinary difficulties, prolonged bleeding, easily bruising, heat or cold intolerance, new onset joint pain or swelling, new onset extremity weakness or numbness, new onset auditory or visual disturbances, lightheadedness, dizziness, partial loss of consciousness or full loss of consciousness. Current Outpatient Medications Medication Sig ezetimibe (ZETIA) 10 mg tablet Take 1 tablet by mouth every afternoon. dilTIAZem CD (CARDIZEM CD, CARTIA XT) 120 mg 24 hr capsule Take 1 capsule by mouth once daily. JARDIANCE 10 mg tablet OZEMPIC 0.25 mg or 0.5 mg (2 mg/3 mL) pen 0.5 MG (0.8 ML) SUBCUTANEOUSLY EVERY WEEK URSODIOL ORAL Taking 300 mg daily losartan (COZAAR) 50 mg tablet Take 1 tablet by mouth every afternoon. ergocalciferol, vitamin D2, (VITAMIN D2 ORAL) Take 1,000 Units by mouth once daily. methylPREDNISolone (MEDROL, MANOJ,) 4 mg Dose-Pack As Instructed per package albuterol HFA (PROAIR HFA) 90 mcg/actuation inhaler Inhale 2 Puffs as instructed every 4 hours as needed for Wheezing/Shortness of Breath. Hydrochlorothiazide 12.5 mg capsule Take 1 capsule by mouth once daily. No current facility-administered medications for this visit. Physical Exam Vitals: LMP 03/21/2016 Psych: Pleasant, good affect and mood General Appearance: Well appearing, alert, in no acute distress, well-hydrated, well nourished.. Skin: Skin color, texture, turgor normal, no suspicious rashes or lesions. Peripheral Pulses: Normal. Neurologic: Gait normal. Reflexes normal and symmetric. Sensation grossly intact.. Lymph Nodes: No cervical lymphadenopathy, No supraclavicular lymphadenopathy, No axillary lymphadenopathy., and No inguinal lymphadenopathy.. Respiratory: No recent pulmonary infection, hemoptysis, chronic cough, or shortness of breath at rest Rheumatologic: Joint deformities: left shoulder pain Left Hand Exam Tests Phalen?s sign: positive Tinel's sign (median nerve): positive Comments: Dec med nerve 2pt discrim, atrophy thenar Right Shoulder Exam Right shoulder exam is normal. Tenderness The patient is experiencing no tenderness. Range of Motion Active abduction: normal Passive abduction: normal Extension: normal External rotation: normal Forward flexion: normal Internal rotation 0 degrees: normal Internal rotation 90 degrees: normal Muscle Strength Abduction: 5/5 Internal rotation: 5/5 External rotation: 5/5 Supraspinatus: 5/5 Subscapularis: 5/5 Biceps: 5/5 Tests Apprehension: negative Werner test: negative Cross arm: negative Impingement: negative Other Erythema: absent Sensation: normal Pulse: present Comments: B/l med, uln, rad, ax nerves intact Left Shoulder Exam Tenderness The patient is experiencing tenderness in the biceps tendon. Range of Motion Active abduction: normal Passive abduction: normal Extension: normal External rotation: normal Forward flexion: normal Internal rotation 0 degrees: normal Internal rotation 90 degrees: normal Muscle Strength Abduction: 5/5 Internal rotation: 5/5 External rotation: 5/5 Supraspinatus: 5/5 Subscapularis: 5/5 Biceps: 4/5 Tests Apprehension: negative Werner test: positive Cross arm: negative Impingement: positive Other Erythema: absent Sensation: normal Pulse: present Comments: Pos obriens, pos yergason, pos speeds test Assessment and Plan Last MRI Shoulder - Impression Only No resulted procedures found. Radiographs: I have independently reviewed films and my findings are the same. and I have reviewed the images with the patient and fa (more content not included)...[facility]09-20-2024 History of Present illness Narrative* Domonique Hoang, - 05/31/2024 11:44 AM EDT Images from the original note were not included. Follow Up Visit Chief Complaint Ernestina Wade is a 54 year old female who presents today for follow up office visit. Patient presents with: Left Shoulder - Follow Up: Wants to go forward with surgery option and the details History of Present Illness PAIN EVALUATION 05/31/2024 0944 Pain Level: 1 Pain Location: Shoulder-Left Description: Aching;Sharp;Shooting;Sore Duration Amount of Time: 24 Duration Units: Hours Frequency: Continuous Intervention/Comfort measure: Medication;Reposition;Cold;Positioning Comments: Pain depends on what im doing. HPI: Ernestina Wade is a 54 year old female for a follow up visit left shoulder pain , left carpal tunnel. Pain history is noted as above. Denies calf pain, numbness, tingling, fever, chills or otherconstitutional symptoms. Is there any overall improvement in your condition? No Any new injury, since being seen last: No REVIEW OF SYMPTOMS: Patient did not have, and does not currently have, any weight loss, malaise, fever, chills, headache, chest pain, chest pressure, palpitations, cough, shortness of breath, orthopnea, paroxsymal nocturnal dyspnea, nausea, vomiting, diarrhea, constipation, melena, hematochezia, urinary difficulties, prolonged bleeding, easily bruising, heat or cold intolerance, new onset joint pain or swelling, newonset extremity weakness or numbness, new onset auditory or visual disturbances, lightheadedness, dizziness, partial loss of consciousness or full loss of consciousness. Current Outpatient Medications Medication Sig ezetimibe (ZETIA) 10 mg tablet Take 1 tablet by mouth every afternoon. dilTIAZem CD (CARDIZEM CD, CARTIA XT) 120 mg 24 hr capsule Take 1 capsule by mouth once daily. JARDIANCE 10 mg tablet OZEMPIC 0.25 mg or 0.5 mg (2 mg/3 mL) pen 0.5 MG (0.8 ML) SUBCUTANEOUSLY EVERY WEEK URSODIOL ORAL Taking 300 mg daily losartan (COZAAR) 50 mg tablet Take 1 tablet by mouth every afternoon. ergocalciferol, vitamin D2, (VITAMIN D2 ORAL) Take 1,000 Units by mouth once daily. methylPREDNISolone (MEDROL, MANOJ,) 4 mg Dose-Pack As Instructed per package albuterol HFA (PROAIR HFA) 90 mcg/actuation inhaler Inhale 2 Puffs as instructed every 4 hours as needed for Wheezing/Shortness of Breath. Hydrochlorothiazide 12.5 mg capsule Take 1 capsule by mouth once daily. No current facility-administered medications for this visit. Physical Exam Vitals: [facility] 03/21/2016 Psych: Pleasant, good affect and mood General Appearance: Well appearing, alert, in no acute distress, well-hydrated, well nourished.. Skin: Skin color, texture, turgor normal, no suspicious rashes or lesions. Peripheral Pulses: Normal. Neurologic: Gait normal. Reflexes normal and symmetric. Sensation grossly intact.. Lymph Nodes: No cervical lymphadenopathy, No supraclavicular lymphadenopathy, No axillary lymphadenopathy., and No inguinal lymphadenopathy.. Respiratory: No recent pulmonary infection, hemoptysis, chronic cough, or shortness of breath at rest Rheumatologic: Joint deformities: left shoulder pain Left Hand Exam Tests Phalen s sign: positive Tinel's sign (median nerve): positive Comments: Dec med nerve 2pt discrim, atrophy thenar Right Shoulder Exam Right shoulder exam is normal. Tenderness The patient is experiencing no tenderness. Range of Motion Active abduction: normal Passive abduction: normal Extension: normal External rotation: normal Forward flexion: normal Internal rotation 0 degrees: normal Internal rotation 90 degrees: normal Muscle Strength Abduction: 5/5 Internal rotation: 5/5 External rotation: 5/5 Supraspinatus: 5/5 Subscapularis: 5/5 Biceps: 5/5 Tests Apprehension: negative Werner test: negative Cross arm: negative Impingement: negative Other Erythema: absent Sensation: normal Pulse: present Comments: B/l med, uln, rad, ax nerves intact Left Shoulder Exam Tenderness The patient is experiencing tenderness in the biceps tendon. Range of Motion Active abduction: normal Passive abduction: normal Extension: normal External rotation: normal Forward flexion: normal Internal rotation 0 degrees: normal Internal rotation 90 degrees: normal Muscle Strength Abduction: 5/5 Internal rotation: 5/5 External rotation: 5/5 Supraspinatus: 5/5 Subscapularis: 5/5 Biceps: 4/5 Tests Apprehension: negative Werner test: positive Cross arm: negative Impingement: positive Other Erythema: absent Sensation: normal Pulse: present Comments: Pos obri, pos evason, pos syd[place] test Assessment and Plan Last MRI Shoulder - Impression Only No resulted procedures found. Radiographs: I have independently reviewed films and my findings are the same. and I have reviewed the images with the patient and family. Impression: Encounter Diagnosis ICD-10-CM 1. Bilateral carpal tunnel syndrome G56.03 2. Chronic left shoulder pain M25.512 G89.29 3. Complete tear of left rotator cuff, unspecified whether traumatic M75.122 4. Shoulder impingement M25.819 5. Tendinitis of left shoulder M77.8 Today, in detail, through a thorough evaluation, we discussed possible etiologies of pain and our plans for further diagnostic and therapeutic interventions. We discussed strategies for decreasing pain and improving strength, stability and motion. Patient's questions were answered in detailed. Patient verbalizes understanding and agrees with the treatment plan as discussed. MODERATELY SEVERe left cts- would do ctr first, then shoulder Mri repors full thickness supra, internis delaimini infraspin, subscap tendinosis,bursitis, ac oa Risks and benefits vs alternatives to treatment were discussed with patient. Risks including but not limited to blood loss, blood clot, infection, neurovascular injury, failure of procedure, need forrevision operation, loss of life and loss of limb. Patient aware of risks and benefits and agrees to proceed with written consent for surgical intervention. Shoulder arhtroscopy, discusssed postop recovery Ctr discussed pre/postop plan; goal of surgery is to prevent from getting worse/ wont make 100% better sukumar from weakness perspective as motor end plates lost Patient aware and in agreement of plan. All questions answered. Domonique Hoang D.O. M.P.H. documented in this encounterPrem[facility]-12-[facility] History of Present illness Narrative* Domonique Hoang DO - 05/23/2024 10:21 AM EDT Images from the original note were not included. Follow Up Visit Chief Complaint Ernestina Wade is a 54 year old female who presents today for follow up office visit. Patient presents with: Left Shoulder - Follow Up History of Present Illness PAIN EVALUATION 05/23/2024 1022 Pain Level: 3 Pain Location: Shoulder-Left Description: Aching Duration Amount of Time: -- Ongoing Frequency: Intermittent Intervention/Comfort measure: Medication HPI: Ernestina Wade is a 54 year old female for a follow up visit MRI results left shoulder and previous emg results showing carpal tunnel. Pain history is noted as above. Patient states she is having difficulty lifting her arm upward. She is having pain into her biceps area. She did have a workoutin the pool yesterday. Taking Ibuprofen or Naproxen for the pain when needed and helps. Patient also has EMG results BUE to discuss. Is there any overall improvement in your condition? No Any new injury, since being seen last: No REVIEW OF SYMPTOMS: Patient did not have, and does not currently have, any weight loss, malaise, fever, chills, headache, chest pain, chest pressure, palpitations, cough, shortness of breath, orthopnea, paroxsymal nocturnal dyspnea, nausea, vomiting, diarrhea, constipation, melena, hematochezia, urinary difficulties, prolonged bleeding, easily bruising, heat or cold intolerance, new onset joint pain or swelling, newonset extremity weakness or numbness, new onset auditory or visual disturbances, lightheadedness, dizziness, partial loss of consciousness or full loss of consciousness. Current Outpatient Medications Medication Sig ezetimibe (ZETIA) 10 mg tablet Take 1 tablet by mouth every afternoon. dilTIAZem CD (CARDIZEM CD, CARTIA XT) 120 mg 24 hr capsule Take 1 capsule by mouth once daily. JARDIANCE 10 mg tablet OZEMPIC 0.25 mg or 0.5 mg (2 mg/3 mL) pen 0.5 MG (0.8 ML) SUBCUTANEOUSLY EVERY WEEK URSODIOL ORAL Taking 300 mg daily losartan (COZAAR) 50 mg tablet Take 1 tablet by mouth every afternoon. ergocalciferol, vitamin D2, (VITAMIN D2 ORAL) Take 1,000 Units by mouth once daily. methylPREDNISolone (MEDROL, MANOJ,) 4 mg Dose-Pack As Instructed per package albuterol HFA (PROAIR HFA) 90 mcg/actuation inhaler Inhale 2 Puffs as instructed every 4 hours as needed for Wheezing/Shortness of Breath. Hydrochlorothiazide 12.5 mg capsule Take 1 capsule by mouth once daily. No current facility-administered medications for this visit. Physical Exam Vitals: LMP 03/21/2016 Psych: Pleasant, good affect and mood General Appearance: Well appearing, alert, in no acute distress, well-hydrated, well nourished.. Skin: Skin color, texture, turgor normal, no suspicious rashes or lesions. Peripheral Pulses: Normal. Neurologic: Gait normal. Reflexes normal and symmetric. Sensation grossly intact.. Lymph Nodes: No cervical lymphadenopathy, No supraclavicular lymphadenopathy, No axillary lymphadenopathy., and No inguinal lymphadenopathy.. Respiratory: No recent pulmonary infection, hemoptysis, chronic cough, or shortness of breath at rest Rheumatologic: Joint deformities: b/l hand numbness and shoulder pain Ortho Exam Assessment and Plan Radiographs: I have independently reviewed films and my findings are the same. and I have reviewed the images with the patient and family. [facility] full thickness tear Impression: Encounter Diagnosis ICD-10-CM 1. Bilateral carpal tunnel syndrome G56.03 2. Chronic left shoulder pain M25.512 G89.29 3. Complete tear of left rotator cuff, unspecified whether traumatic M75.122 4. Shoulder impingement M25.819 5. Bursitis of left shoulder M75.52 6. Tendinitis of left shoulder M77.8 Today, in detail, through a thorough evaluation, we discussed possible etiologies of pain and our plans for further diagnostic and therapeutic interventions. We discussed strategies for decreasing pain and improving strength, stability and motion. Patient's questions were answered in detailed. Patient verbalizes understanding and agrees with the treatment plan as discussed. Discussed options for treatment, nonop vs op Epic not working so couldn't consent pt Discussed full thickness and risks of atrophy/waiting too long for repair Discussed would not do carpal tunnel at same time, most likely prior to by 4 weeks Discussed surgical postop protocol Discussed emg results and mri findings in detail Pt will go home and think about options and mychart us and let us know how she wants to proceed Patient aware and in agreement of plan. All questions answered. Domonique Hoang D.O. M.P.H. documented in this encounterPremier Health [facility]09-12-2024 NoteHNO ID: [id number] Author: DOMONIQUE HOANG, DO Service: ? Author Type: Physician Type: Progress Notes Filed: 05/23/2024 13:14 Note Text: Follow Up Visit Chief Complaint Ernestina Wade is a 54 year old female who presents today for follow up office visit. Patient presents with: Left Shoulder - Follow Up History of Present Illness PAIN EVALUATION 05/23/2024 1022 Pain Level: 3 Pain Location: Shoulder-Left Description: Aching Duration Amount of Time: -- Ongoing Frequency: Intermittent Intervention/Comfort measure: Medication HPI: Ernestina Wade is a 54 year old female for a follow up visit MRI results left shoulder and previous emg results showing carpal tunnel. Pain history is noted as above. Patient states she is having difficulty lifting her arm upward. She is having pain into her biceps area. She did have a workout in the pool yesterday. Taking Ibuprofen or Naproxen for the pain when needed and helps. Patient also has EMG results BUE to discuss. Is there any overall improvement in your condition? No Any new injury, since being seen last: No REVIEW OF SYMPTOMS: Patient did not have, and does not currently have, any weight loss, malaise, fever, chills, headache, chest pain, chest pressure, palpitations, cough, shortness of breath, orthopnea, paroxsymal nocturnal dyspnea, nausea, vomiting, diarrhea, constipation, melena, hematochezia, urinary difficulties, prolonged bleeding, easily bruising, heat or cold intolerance, new onset joint pain or swelling, new onset extremity weakness or numbness, new onset auditory or visual disturbances, lightheadedness, dizziness, partial loss of consciousness or full loss of consciousness. Current Outpatient Medications Medication Sig ezetimibe (ZETIA) 10 mg tablet Take 1 tablet by mouth every afternoon. dilTIAZem CD (CARDIZEM CD, CARTIA XT) 120 mg 24 hr capsule Take 1 capsule by mouth once daily. JARDIANCE 10 mg tablet OZEMPIC 0.25 mg or 0.5 mg (2 mg/3 mL) pen 0.5 MG (0.8 ML) SUBCUTANEOUSLY EVERY WEEK URSODIOL ORAL Taking 300 mg daily losartan (COZAAR) 50 mg tablet Take 1 tablet by mouth every afternoon. ergocalciferol, vitamin D2, (VITAMIN D2 ORAL) Take 1,000 Units by mouth once daily. methylPREDNISolone (MEDROL, MANOJ,) 4 mg Dose-Pack As Instructed per package albuterol HFA (PROAIR HFA) 90 mcg/actuation inhaler Inhale 2 Puffs as instructed every 4 hours as needed for Wheezing/Shortness of Breath. Hydrochlorothiazide 12.5 mg capsule Take 1 capsule by mouth once daily. No current facility-administered medications for this visit. Physical Exam Vitals: [facility] 03/21/2016 Psych: Pleasant, good affect and mood General Appearance: Well appearing, alert, in no acute distress, well-hydrated, well nourished.. Skin: Skin color, texture, turgor normal, no suspicious rashes or lesions. Peripheral Pulses: Normal. Neurologic: Gait normal. Reflexes normal and symmetric. Sensation grossly intact.. Lymph Nodes: No cervical lymphadenopathy, No supraclavicular lymphadenopathy, No axillary lymphadenopathy., and No inguinal lymphadenopathy.. Respiratory: No recent pulmonary infection, hemoptysis, chronic cough, or shortness of breath at rest Rheumatologic: Joint deformities: b/l hand numbness and shoulder pain Ortho Exam Assessment and Plan Radiographs: I have independently reviewed films and my findings are the same. and I have reviewed the images with the patient and family. [facility] full thickness tear Impression: Encounter Diagnosis ICD-10-CM 1. Bilateral carpal tunnel syndrome G56.03 2. Chronic left shoulder pain M25.512 G89.29 3. Complete tear of left rotator cuff, unspecified whether traumatic M75.122 4. Shoulder impingement M25.819 5. Bursitis of left shoulder M75.52 6. Tendinitis of left shoulder M77.8 Today, in detail, through a thorough evaluation, we discussed possible etiologies of pain and our plans for further diagnostic and therapeutic interventions. We discussed strategies for decreasing pain and improving strength, stability and motion. Patient's questions were answered in detailed. Patient verbalizes understanding and agrees with the treatment plan as discussed. Discussed options for treatment, nonop vs op Epic not working so couldn't consent pt Discussed full thickness and risks of atrophy/waiting too long for repair Discussed would not do carpal tunnel at same time, most likely prior to by 4 weeks Discussed surgical postop protocol Discussed emg results and mri findings in detail Pt will go home and think about options and mychart us and let us know how she wants to proceed Patient aware and in agreement of plan. All questions answered. Domonique Hoang D.O., M.P.H.[facility]07-11-2024 NoteHNO ID: [id number] Author: DOMONIQUE HOANG, DO Service: ? Author Type: Physician Type: Progress Notes Filed: 03/21/2024 12:22 Note Text: Reason for Visit/Chief Complaint Ernestina Wade is a 54 year old female who presents today for a new evaluation of following complaint: Patient presents with: Left Shoulder - New, Pain History of Present Illness: PAIN EVALUATION 03/21/2024 1157 Pain Level: 2 Pain Location: Shoulder-Left Description: Sharp;Aching;Radiating Duration Amount of Time: 2 Duration Units: Years Frequency: Continuous Intervention/Comfort measure: Medication;Cold;Heat HPI: Ernestina Wade is a 54 year old female presenting today with left shoulder pain. She states pain has bothered her since carrying a heavy bag while on vacation 06/2022. Pain history is noted as above. 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 Right hand dominant. 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. Previous Treatments: Ice: Yes Heat: Yes Brace: No NSAIDs: Yes Injections: No Surgeries: No Physical Therapy: Yes, personal training at [employer]. Review of Systems: Patient did not have, and does not currently have, any weight loss, malaise, fever, chills, headache, chest pain, chest pressure, palpitations, cough, shortness of breath, orthopnea, paroxsymal nocturnal dyspnea, nausea, vomiting, diarrhea, constipation, melena, hematochezia, urinary difficulties, prolonged bleeding, easily bruising, heat or cold intolerance, new onset joint pain or swelling, new onset extremity weakness or numbness, new onset auditory or visual disturbances, lightheadedness, dizziness, partial loss of consciousness or full loss of consciousness. Current Outpatient Medications on File Prior to Visit Medication Sig ezetimibe (ZETIA) 10 mg tablet Take 1 tablet by mouth every afternoon. dilTIAZem CD (CARDIZEM CD, CARTIA XT) 120 mg 24 hr capsule Take 1 capsule by mouth once daily. JARDIANCE 10 mg tablet OZEMPIC 0.25 mg or 0.5 mg (2 mg/3 mL) pen 0.5 MG (0.8 ML) SUBCUTANEOUSLY EVERY WEEK URSODIOL ORAL losartan (COZAAR) 50 mg tablet Take 1 tablet by mouth every afternoon. ergocalciferol, vitamin D2, (VITAMIN D2 ORAL) Take 1,000 Units by mouth once daily. methylPREDNISolone (MEDROL, MANOJ,) 4 mg Dose-Pack As Instructed per package albuterol HFA (PROAIR HFA) 90 mcg/actuation inhaler Inhale 2 Puffs as instructed every 4 hours as needed for Wheezing/Shortness of Breath. Hydrochlorothiazide 12.5 mg capsule Take 1 capsule by mouth once daily. No current facility-administered medications on file prior to visit. ALLERGIES Allergen Reactions Reglan [Metoclopram* Mental Status Change Physical Exam: Vitals: [facility] 03/21/2016 Psych: Pleasant, good affect and mood General Appearance: Well appearing, alert, in no acute distress, well-hydrated, well nourished.. Skin: Skin color, texture, turgor normal, no suspicious rashes or lesions. Peripheral Pulses: Normal. Neurologic: Gait normal. Reflexes normal and symmetric. Sensation grossly intact.. Lymph Nodes: No cervical lymphadenopathy, No supraclavicular lymphadenopathy, No axillary lymphadenopathy., and No inguinal lymphadenopathy.. Respiratory: No recent pulmonary infection, hemoptysis, chronic cough, or shortness of breath at rest Rheumatologic: Joint deformities: left shoulder pain Right Shoulder Exam Right shoulder exam is normal. Tenderness The patient is experiencing no tenderness. Range of Motion Active abduction: normal Passive abduction: normal Extension: normal External rotation: normal Forward flexion: normal Internal rotation 0 degrees: normal Internal rotation 90 degrees: normal Muscle Strength Abduction: 5/5 Internal rotation: 5/5 External rotation: 5/5 Supraspinatus: 5/5 Subscapularis: 5/5 Biceps: 5/5 Tests Apprehension: negative Werner test: negative Cross arm: negative Impingement: negative Other Erythema: absent Sensation: normal Pulse: present Comments: B/l med, uln, rad, ax nerves intact Left Shoulder Exam Tenderness The patient is experiencing tenderness in the biceps tendon. Range of Motion Active abduction: normal Passive abduction: normal Extension: normal External rotation: normal Forward flexion: normal Internal rotation 0 degrees: normal Internal rotation 90 degrees: normal Muscle Strength Abduction: 5/5 Internal rotation: 5/5 External rotation: 5/5 Supraspinatus: 5/5 Subscapularis: 5/5 Biceps: 4/5 Tests Apprehension: negative Werner test: positive Cross arm: negative Impingement: positive Other Erythema: absent Sensation: normal Pulse: present Comments: Pos obriens, pos yergason, pos speeds test Imaging: Last XR Shoulder - Impression Only XR SHOULDER GENERAL 3V OR MORE AP/TRUE AP/OTHER LEFT Exam End: 03/21/2024 11:53 AM (In process) Assessment and Plan: Impression: Encounter Diagnosis (more content not included)...[facility]07-11-2024 History of Present illness Narrative* Domonique Hoang DO - 03/21/2024 11:56 AM EDT Reason for Visit/Chief Complaint Ernestina Wade is a 54 year old female who presents today for a new evaluation of following complaint: Patient presents with: Left Shoulder - New, Pain History of Present Illness: PAIN EVALUATION 03/21/2024 1157 Pain Level: 2 Pain Location: Shoulder-Left Description: Sharp;Aching;Radiating Duration Amount of Time: 2 Duration Units: Years Frequency: Continuous Intervention/Comfort measure: Medication;Cold;Heat HPI: Ernestina Wade is a 54 year old female presenting today with left shoulder pain. She states pain has bothered her since carrying a heavy bag while on vacation 06/2022. Pain history is noted as above. 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 Right hand dominant. 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 Previous Treatments: Ice: Yes Heat: Yes Brace: No NSAIDs: Yes Injections: No Surgeries: No Physical Therapy: Yes, personal training at [employer]. Review of Systems: Patient did not have, and does not currently have, any weight loss, malaise, fever, chills, headache, chest pain, chest pressure, palpitations, cough, shortness of breath, orthopnea, paroxsymal nocturnal dyspnea, nausea, vomiting, diarrhea, constipation, melena, hematochezia, urinary difficulties, prolonged bleeding, easily bruising, heat or cold intolerance, new onset joint pain or swelling, newonset extremity weakness or numbness, new onset auditory or visual disturbances, lightheadedness, dizziness, partial loss of consciousness or full loss of consciousness. Current Outpatient Medications on File Prior to Visit Medication Sig ezetimibe (ZETIA) 10 mg tablet Take 1 tablet by mouth every afternoon. dilTIAZem CD (CARDIZEM CD, CARTIA XT) 120 mg 24 hr capsule Take 1 capsule by mouth once daily. JARDIANCE 10 mg tablet OZEMPIC 0.25 mg or 0.5 mg (2 mg/3 mL) pen 0.5 MG (0.8 ML) SUBCUTANEOUSLY EVERY WEEK URSODIOL ORAL losartan (COZAAR) 50 mg tablet Take 1 tablet by mouth every afternoon. ergocalciferol, vitamin D2, (VITAMIN D2 ORAL) Take 1,000 Units by mouth once daily. methylPREDNISolone (MEDROL, MANOJ,) 4 mg Dose-Pack As Instructed per package albuterol HFA (PROAIR HFA) 90 mcg/actuation inhaler Inhale 2 Puffs as instructed every 4 hours as needed for Wheezing/Shortness of Breath. Hydrochlorothiazide 12.5 mg capsule Take 1 capsule by mouth once daily. No current facility-administered medications on file prior to visit. ALLERGIES Allergen Reactions Reglan [Metoclopram* Mental Status Change Physical Exam: Vitals: LMP 03/21/2016 Psych: Pleasant, good affect and mood General Appearance: Well appearing, alert, in no acute distress, well-hydrated, well nourished.. Skin: Skin color, texture, turgor normal, no suspicious rashes or lesions. Peripheral Pulses: Normal. Neurologic: Gait normal. Reflexes normal and symmetric. Sensation grossly intact.. Lymph Nodes: No cervical lymphadenopathy, No supraclavicular lymphadenopathy, No axillary lymphadenopathy., and No inguinal lymphadenopathy.. Respiratory: No recent pulmonary infection, hemoptysis, chronic cough, or shortness of breath at rest Rheumatologic: Joint deformities: left shoulder pain Right Shoulder Exam Right shoulder exam is normal. Tenderness The patient is experiencing no tenderness. Range of Motion Active abduction: normal Passive abduction: normal Extension: normal External rotation: normal Forward flexion: normal Internal rotation 0 degrees: normal Internal rotation 90 degrees: normal Muscle Strength Abduction: 5/5 Internal rotation: 5/5 External rotation: 5/5 Supraspinatus: 5/5 Subscapularis: 5/5 Biceps: 5/5 Tests Apprehension: negative Werner test: negative Cross arm: negative Impingement: negative Other Erythema: absent Sensation: normal Pulse: present Comments: B/l med, uln, rad, ax nerves intact Left Shoulder Exam Tenderness The patient is experiencing tenderness in the biceps tendon. Range of Motion Active abduction: normal Passive abduction: normal Extension: normal External rotation: normal Forward flexion: normal Internal rotation 0 degrees: normal Internal rotation 90 degrees: normal Muscle Strength Abduction: 5/5 Internal rotation: 5/5 External rotation: 5/5 Supraspinatus: 5/5 Subscapularis: 5/5 Biceps: 4/5 Tests Apprehension: negative Werner test: positive Cross arm: negative Impingement: positive Other Erythema: absent Sensation: normal Pulse: present Comments: Pos obriens, pos yergason, pos speeds test Imaging: Last XR Shoulder - Impression Only XR SHOULDER GENERAL 3V OR MORE AP/TRUE AP/OTHER LEFT Exam End: 03/21/2024 11:53 AM (In process) Assessment and Plan: Impression: Encounter Diagnosis ICD-10-CM 1. 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 Chronic left shoulder pain M25.512 G89.29 3. Shoulder impingement M25.819 Plan: Today, in detail, through a thorough evaluation, we discussed possible etiologies of pain and our plans for further diagnostic and therapeutic interventions. We discussed strategies for decreasing pain and improving strength, stability and motion. Patient's questions were answered in detailed. Patient verbalizes understanding and agrees with the treatment plan as discussed. MRI left shoulder Will bring in emg results at next visit Discuss option pending mri Domonique Hoang D.O. M.P.H. documented in this encounterPremier [facility]07-11-[facility] History of Present illness Narrative* Tiarra Alba, RT(R) - 03/21/2024 11:40 AM EDT Radiology Service Progress Note PATIENT NAME: Ernestina Wade DATE OF SERVICE: March 21, 2024 TIME: 11:43 AM PATIENT IDENTITY VERIFICATION COMPLETED USING TWO (2) IDENTIFIERS: Name and Date of confirmedby patient verbally. FALL SCREENING: Has the patient had 2 falls in the last year or 1 fall with injury or currently using an Ambulatory Assistive Device (Walker, Cane, Wheelchair, Crutches, etc.)? No PATIENT GENDER DATA: Female. status: : No status: NO. PATIENT RELEVANT IMPLANT DATA REVIEWED: Yes PATIENT PRESENTS WITH AN IMPLANTABLE OR ATTACHED ADVANCED MANAGER: No RADIOLOGY DEPARTMENT: General X-ray: Exam(s) Completed: Upper Extremity X- Ray(s): Shoulder, AP / TRUE AP / AXILLARY left PERIPHERAL IV DATA: Not applicable SIGNED BY: RT Juan(Robin) March 21, 2024 11:43 AM documented in this encounterPremier Health [facility]07-11-2024 NoteHNO ID: [id number] Author: TIARRA ALBA RT(R) Service: Radiology Author Type: Technologist Type: Progress Notes Filed: 03/21/2024 11:53 Note Text: Radiology Service Progress Note PATIENT NAME: Ernestina Wade DATE OF SERVICE: March 21, 2024 TIME: 11:43 AM PATIENT IDENTITY VERIFICATION COMPLETED USING TWO (2) IDENTIFIERS: Name and Date of confirmed by patient verbally. FALL SCREENING: Has the patient had 2 falls in the last year or 1 fall with injury or currently using an Ambulatory Assistive Device (Walker, Cane, Wheelchair, Crutches, etc.)? No PATIENT GENDER DATA: Female. status: : No status: NO. PATIENT RELEVANT IMPLANT DATA REVIEWED: Yes PATIENT PRESENTS WITH AN IMPLANTABLE OR ATTACHED ADVANCED MANAGER: No RADIOLOGY DEPARTMENT: General X-ray: Exam(s) Completed: Upper Extremity X-Ray(s): Shoulder, AP / TRUE AP / AXILLARY left PERIPHERAL IV DATA: Not applicable SIGNED BY: YARELI Martinez) March 21, 2024 11:43 [facility]10-18-2023 History and physical note Author Dean Diaz [facility] June 28, 2023 9:58am Note Date/Time June 28, 2023 9 :58am [facility] Medical Records Department [address] [place] [address] [place] [address] History & Physical Exam 06/28/23 0958 MR#: [id number] Acct: [id number] Name: ERNESTINA WADE Rep #:[id number] : 1970 53 From: Dean Friend DO PCP: Dr. Chikis Montana MD Status:REG [facility] Location: [place] [address] History and Physical Date of Admission: 06/28/23 Chief Complaint: hepatitis C Details: TAYLOR BECERRIL, is a 46 F who presents to the office today to establish with GI for hepatitis C which was diagnosed in 2021. She thinks she was infected in 2020, used IV drugs then, she didn't know her then-boyfriend was positive for hepatitis C and hepatitis B. She is immune to hepatitis B (03/2022 hep B surf ab positive). No prior treatment for hepatitis C. She reports early satiety, bloating, chronic nausea. No vomiting. No dysphagia. Has RUQ and epigastric discomfort intermittently. No heartburn since she took esomeprazole for one week recently. Less constipation since starting a probiotic. No melena or hematochezia. She has fatigue, hair loss, weight gain. No jaundice. Has generalized pruritus. No rash. No ascites or edema. Recent AST 242, ALT 585 ROS Const Constitutional: Positive for fatigue and weight change ENT ENT: No difficulty swallowing Gastro GI: Positive for abdominal pain, bloating, constipation and nausea/dyspepsia; No belching, change in bowel habits, change in stool character, coffee ground emesis, cramping, diarrhea, heartburn, difficulty swallowing, feeling full early, excessive flatus, incontinent of stools, Vomiting blood/hematemesis, Blood in stool, loose stools, Black,tarry stools, pain with swallowing, vomitingor other Musc Musculoskeletal: Positive for joint pain, joint swelling, muscle weakness, stiffness and Arthritis Skin Skin: No yellowing of the eye or itchy eyes Psych Psychiatric: No anxiety and Positive for depression Endo Endocrine: Positive for fatigue and weight change Aller/Imm Allergy/Immunologic: No itchy eyes Baldemar/Lymp Hematologic/Lymphatic: No easy bleeding or easy bruising Exam Const General: cooperative and no acute distress Nutritional Appearance: overweight Orientation: alert, awake and oriented x3 Eyes Sclera: sclerae normal Resp Effort & Inspection: normal respiratory effort GI Inspection: normal to inspection Palpation: soft, no hepatosplenomegaly, no masses and nontender Skin General: no rashes or lesions noted and no jaundice Quality Reporting Tobacco Screening ([facility] 138) Smoking Status: Current every day smoker Assessment and Plan Assessment and Plan (1) Hepatitis C: Status: Chronic Plan: [facility]eds [facility] ok to continue suboxone Labs today, will check hep C quant, genotype and liver labs; will call her with results and will then treat hep C US/elastography EGD to eval epigastric pain, screening colonoscopy Orders: Orders HIV - [facility] Today B19.20 - Unspecified viral hepatitis C without hepatic coma Comprehensive Metabolic Profil Today B19.20 - Unspecified viral hepatitis C without hepatic coma CRP Today B19.20 - Unspecified viral hepatitis C without hepatic coma Ferritin Today B19.20 - Unspecified viral hepatitis C without hepatic coma LDH Today B19.20 - Unspecified viral hepatitis C without hepatic coma Hemoglobin A1c Today B19.20 - Unspecified viral hepatitis C without hepatic coma Prothrombin Time w/INR Today B19.20 - Unspecified viral hepatitis C without hepatic coma CBC W/Diff, Automated Today B19.20 - Unspecified viral hepatitis C without hepatic coma Erythrocyte Sed Rate Today B19.20 - Unspecified viral hepatitis C without hepatic coma Anti-Mitochondrial AB Today B19.20 - Unspecified viral hepatitis C without hepatic coma TERESA Comprehensive Panel Today B19.20 - Unspecified viral hepatitis C without hepatic coma Hepatitis Panel Acute Today B19.20 - Unspecified viral hepatitis C without hepatic coma Angiotensin Convert Enzyme Today B19.20 - Unspecified viral hepatitis C without hepatic coma AFP, Tumor Marker Today B19.20 - Unspecified viral hepatitis C without hepatic coma ANCA Today B19.20 - Unspecified viral hepatitis C without hepatic coma Anti-Smooth Muscle ABS Today B19.20 - Unspecified viral hepatitis C without hepatic coma Ceruloplasmin Today B19.20 - Unspecified viral hepatitis C without hepatic coma Copper, Serum or Plasma Today B19.20 - Unspecified viral hepatitis C without hepatic coma Haptoglobin Today B19.20 - Unspecified viral hepatitis C without hepatic coma Hepatitis C,RNA PCR Viral Load Today B19.20 - Unspecified viral hepatitis C without hepatic coma Hepatitis C Genotype Today B19.20 - Unspecified viral hepatitis C without hepatic coma Ammonia Today B19.20 - Unspecified viral hepatitis C without hepatic coma Abdomen Limited Today B19.20 - Unspecified viral hepatitis C without hepatic coma Elastography Parenchyma/Organ Today B19.20 - Unspecified viral hepatitis C without hepatic coma I have examined the patient and the H&P has been reviewed. There are no clinicalchanges since date of exam. 06/28/23 0958 <Electronically signed by Dean Diaz DO> Cosigner Signature (if applicable): CC: Dr. Chikis Montana MD; Dean Diaz DO~ Signed [facility] Work Phone: [phone] Procedure [facility] 06-28-2023 Procedure [facility]10-18-2023 Procedure note [facility]10-18-2023 Procedure [facility] 06-15-2023 History of Present illness Narrative* Rose Shipley RDMS - 06/15/2023 11:30 AM EDT Radiology Service Progress Note PATIENT NAME: Ernestina Wade DATE OF SERVICE: June 15, 2023 TIME: 3:53 PM PATIENT IDENTITY VERIFICATION COMPLETED USING TWO (2) IDENTIFIERS: Name and Date of confirmedby patient verbally. FALL SCREENING: Has the patient had 2 falls in the last year or 1 fall with injury or currently using an Ambulatory Assistive Device (Walker, Cane, Wheelchair, Crutches, etc.)? No PATIENT GENDER DATA: Female. status: : No status: NO. PATIENT RELEVANT IMPLANT DATA REVIEWED: Not Applicable RADIOLOGY DEPARTMENT: Ultrasound PERIPHERAL IV DATA: Not applicable SIGNED BY: Rose Shipley RDMS RVT June 15, 2023 3:53 PM documented in this encounterPremier [facility]10-02-2023 Miscellaneous Notes* Telephone Encounter - Josephine Damico LPN - 06/12/2023 1:43 PM EDT Order placed for provider to sign. Josephine Damico LPN * Telephone Encounter - Yury Steel MD - 06/12/2023 12:37 PM EDT Please fax order * Telephone Encounter - Pauly Arauz RN - 06/12/2023 9:47 AM EDT Were we needing to fax an order to [facility] or did you give her an order when she was here? documented in this encounterPremier Health [facility] Center09-28-2023 History of Present illness Narrative* Yury Steel MD - 06/08/2023 10:14 AM EDT [employer] Market [employer] offered: Patient declines. Ernestina is a 53 year old who presents for an annual gynecologic exam with complaints, multiple complaints . Having dyspareunia. Pain with insertion and deep penetration. Noticing vaginal dryness. Has spotting after intercourse. She had pink spotting with intercourse x 2. Has concerns about menopause. Noticing dry skin. Postmenopausal: s/p hysterectomy for menorrhagia - Robotic assisted vaginal hysterectomy, BS, lysis of adhesions for 10 cm size uterus HRT use: No History of abnormal pap: No Last mammogram: last recorded breast imaging 2018 History of abnormal mammogram: h/o lipoma Started working out recently at [facility] [employer] and has lost 24 lbs OB History T0 L2 SAB0 IAB0 Ectopic0 Multiple0 Live Births0 [employer] History LMP: 03/21/2016, Hysterectomy Age at Menarche: Age at First : Age at Menopause: [employer] History Comments: Sexual Activity: Yes; Male Contraception: Surgical PAST MEDICAL HISTORY Diagnosis Date Essential hypertension 02/16/2016 Since 2005. Family history of colon cancer 02/16/2016 Lateral epicondylitis of both elbows 02/16/2016 Medial epicondylitis of right elbow 02/16/2016 Menorrhagia submucous fibroids Non morbid obesity due to excess calories 02/16/2016 Prediabetes 02/16/2016 PAST SURGICAL HISTORY Procedure Laterality Date COLONOSCOPY FLX DX W/COLLJ SPEC WHEN PFRMD 11/18/2010 Colonoscopy LAPAROSCOPY SURG CHOLECYSTECTOMY 09/11/2000 Cholecystectomy, lap SALPINGECTOMY 03/06/2017 SHOULDER SURGERY HX Right 02/27/2019 TOTAL ABDOM HYSTERECTOMY 03/06/2017 TUBAL LIGATION HX 09/11/2004 FAMILY HISTORY Problem Relation Age of Onset None Mother GI Father diverticulitis, recurrent Hypertension Father Diabetes Father Colon Cancer Father other (stomach cancer) Father No Known Problems Brother No Known Problems Brother Cancer Maternal Grandmother lung cancer Alzheimer's Disease Paternal Grandmother Colon Cancer Paternal Grandfather SOCIAL HISTORY Social History Tobacco Use Smoking status: Never Smokeless tobacco: Never Vaping Use Vaping Use: Never used Substance Use Topics Alcohol use: Yes Comment: rare Drug use: No REVIEW OF SYSTEMS Abdomen: No abdominal pain, nausea, vomiting, diarrhea, or constipation. No bloating, early satiety, indigestion, or increased flatulence. Bladder: No dysuria, gross hematuria, urinary frequency, urinary urgency, or incontinence Breast: No breast lumps, nipple d/c, overlying skin changes, redness or skin retraction Allergies and current medication updated:Yes EXAM: BP 120/80 Ht 5' 4 (1.63m) Wt 227 lb 9.6 oz (103.2kg) LMP 03/21/2016 BMI 39.05 kg/(m^2). GENERAL: pleasant, female in no apparent distress HEENT: Normocephalic, atraumatic, mucus membranes moist, and no lesions NECK: full range of motion DERMATOLOGY: Normal, without lesions, non-icteric, and non-hirsute BREAST: soft, non-tender, symmetric, no dominant mass, normal nipple-areolar complex, no lymphadenopathy, and no nipple discharge CHEST: Normal inspiratory effort ABDOMEN: soft, non-tender, and no masses PELVIC: external genitalia normal, normal Bartholin's glands, urethra, [place]'s glands, no vulvar lesions, good vaginal support, physiologic discharge present, normal appearing perineal body and perianal region BIMANUAL: no adnexal masses and non-tender RECTOVAGINAL: deferred. NEURO: exam grossly non-focal EXTREMITIES: normal ASSESSMENT/PLAN: 1) Health maintenance: Pap/HPV screening no longer needed. Mammogram - will confirm pt has scheduled at [facility]. Nutrition, exercise and routine health maintenance exams reviewed. Colon cancer screening: Strong family history. Will get records of most recent colonoscopy. Vaginal odor: Check BV, yeast. Dyspareunia: Check pelvic US. Menopausal symptoms: Check FSH, estradiol. 2) RTO follow up after results. Yury Steel DO [facility] Miscellaneous Notes* Telephone Encounter - Génesis Martínez LPN - 05/05/2023 8:58 AM EDT Medical records received from [facility] in [facility]. documented in this encounterPrem[facility] CenterEvaludelaware [facility] for [facility] chron[facility] ill noteNo assessment information availableWJ.W. [facility] Work Phone: Evaluation note* Diagnosis Onset Date Resolution Status Mass of subcutaneous tissue of back acute Steatosis of liver acute Gastric reflux chronic Hepatomegaly chronic Obesity [facility] Work Phone: Evaluation note* Diagnosis Encounter for gynecological examination (general) (routine) without abnormal findings- Primary Dense breast Inconclusive mammogram Menopausal symptom Symptomatic menopausal or female climacteric states Deep dyspareunia Pelvic pain in female Unspecified symptom associated with female genital organs Vaginal discharge Leukorrhea, not specified as infective documented in this encounter [facility]* Diagnosis Onset Date Resolution Status Elevated LDL cholesterol level chronic Hypertension chronic Obesity chronic Type 2 diabetes mellitus chr onic Gastric reflux chronic Hepatomegaly chronic Obesity chronic Steatosis of liver chronic Elevated LDL cholesterol level chronic Hypertension chronic Type 2 diabetes mellitus [facility] Work Phone: Evaluation note* Diagnosis Deep dyspareunia Pelvic pain in female Unspecified symptom associated with female genital organs documented in this encounter [facility] note* Diagnosis Onset Date Resolution Status Gastric reflux chronic Hepatomegaly chronic Obesity chronic Steatosis of liver chronic Elevated LDL cholesterol level chronic Hypertension chronic Type 2 diabetes mellitus [facility] Contact dermatitis [facility] Work Phone: Evaluation note* Diagnosis Onset Date Resolution Status Elevated LDL cholesterol level chronic Hypertension chronic Obesity chronic Type 2 diabetes mellitus [facility] Work Phone: Evaluation note* Diagnosis Degenerative superior labral uuonkcrj-rb-lyenpnoxr (SLAP) tear of left shoulder- Primary Chronic left shoulder pain Pain in joint, shoulder region Shoulder impingement Other affections of shoulder region, not elsewhere classified documented in this encounter [facility] note* Diagnosis Pain Generalized pain documented in this encounter [facility] note* Diagnosis Bilateral carpal tunnel syndrome- Primary Carpal tunnel syndrome Chronic left shoulder pain Pain in joint, shoulder region Complete tear of left rotator cuff, unspecified whether traumatic Shoulder impingement Other affections of shoulder region, not elsewhere classified Bursitis of left shoulder Disorders of bursae and tendons in shoulder region, unspecified Tendinitis of left shoulder Disorders of bursae and tendons in shoulder region, unspecified documented in this encounter [facility] note* Diagnosis Bilateral carpal tunnel syndrome- Primary Carpal tunnel syndrome Chronic left shoulder pain Pain in joint, shoulder region Complete tear of left rotator cuff, unspecified whether traumatic Shoulder impingement Other affections of shoulder region, not elsewhere classified Tendinitis of left shoulder Disorders of bursae and tendons in shoulder region, unspecified documented in this encounter [facility] note* Diagnosis Carpal tunnel syndrome of left wrist- Primary Carpal tunnel syndrome Carpal tunnel syndrome of left wrist Carpal tunnel syndrome Complete tear of left rotator cuff, unspecified whether traumatic Chronic left shoulder pain Pain in joint, shoulder region documented in this encounter [facility] note* Diagnosis Complete tear of left rotator cuff, unspecified whether traumatic- Primary Chronic left shoulder pain Pain in joint, shoulder region Carpal tunnel syndrome of left wrist Carpal tunnel syndrome Complete tear of left rotator cuff, unspecified whether traumatic Chronic left shoulder pain Pain in joint, shoulder region documented in this encounter [facility] note* Diagnosis Encounter for gynecological examination (general) (routine) without abnormal findings- Primary Encounter for screening mammogram for breast cancer Carpal tunnel syndrome of left wrist Carpal tunnel syndrome Complete tear of left rotator cuff, unspecified whether traumatic Chronic left shoulder pain Pain in joint, shoulder region documented in this encounter [facility] note* Diagnosis Pre-operative examination- Primary Preoperative examination, unspecified Essential hypertension Unspecified essential hypertension Mixed hyperlipidemia Prediabetes Other abnormal glucose Non morbid obesity due to excess calories Carpal tunnel syndrome of left wrist Carpal tunnel syndrome Complete tear of left rotator cuff, unspecified whether traumatic Chronic left shoulder pain Pain in joint, shoulder region * Assessment & Plan Note - Efrain Hodges APRN.CNP - 06/25/2024 12:25 PM EDT Associated Problem(s): Non morbid obesity due to excess calories Assessment: Body mass index is 39.14 kg/m . * Assessment & Plan Note - Efrain Hodges APRN.CNP - 06/25/2024 12:25 PM EDT Associated Problem(s): Prediabetes Assessment: weekly injectable and oral medication, instructed to hold weekly injectable 7 FULL days, pt verbalized understanding. [facility] * Assessment & Plan Note - Efrain Hodges APRN.CNP - 06/25/2024 12:19 PM EDT Associated Problem(s): Mixed hyperlipidemia Assessment: on rx * Assessment & Plan Note - Efrain oHdges APRN.CNP - 06/25/2024 12:19 PM EDT Associated Problem(s): Essential hypertension Assessment: controlled on rx Last 14 BP Last 14 Encounter BP Readings: Date: BP: 06/21/2024 118/82 06/10/2024 120/82 08/28/2023 120/82 06/08/2023 120/80 03/28/2016 126/82 03/22/2016 122/84 02/16/2016 134/88 01/14/2016 114/82 12/15/2015 128/88 documented in this encounter [facility]* Diagnosis Pre-operative examination- Primary Preoperative examination, unspecified Essential hypertension Unspecified essential hypertension Mixed hyperlipidemia Prediabetes Other abnormal glucose Non morbid obesity due to excess calories S/P carpal tunnel release- Primary Other postprocedural status Complete tear of left rotator cuff, unspecified whether traumatic Chronic left shoulder pain Pain in joint, shoulder region documented in this encounter [facility] note* Diagnosis Pre-operative examination- Primary Preoperative examination, unspecified Essential hypertension Unspecified essential hypertension Mixed hyperlipidemia Prediabetes Other abnormal glucose Non morbid obesity due to excess calories History of hysterectomy- Primary Acquired absence of both cervix and uterus Complete tear of left rotator cuff, unspecified whether traumatic Chronic left shoulder pain Pain in joint, shoulder region documented in this encounter [facility] note* Diagnosis Pre-operative examination- Primary Preoperative examination, unspecified Essential hypertension Unspecified essential hypertension Mixed hyperlipidemia Prediabetes Other abnormal glucose Non morbid obesity due to excess calories Pre-operative examination- Primary Preoperative examination, unspecified Essential hypertension Unspecified essential hypertension Mixed hyperlipidemia Palpitations Prediabetes Other abnormal glucose BMI 39.0-39.9,adult Body Mass Index 39.0-39.9, adult Irritable bowel syndrome with diarrhea Irritable bowel syndrome SCC (squamous cell carcinoma) Squamous cell carcinoma of skin, site unspecified Complete tear of left rotator cuff, unspecified whether traumatic Chronic left shoulder pain Pain in joint, shoulder region * Assessment & Plan Note - Efrain Hodges APRN.CNP - 08/28/2024 1:38 PM EST Associated Problem(s): SCC (squamous cell carcinoma) Assessment: s/p excision * Assessment & Plan Note - Efrain Hodges APRN.CNP - 08/28/2024 10:50 AM EST Associated Problem(s): Irritable bowel syndrome with diarrhea Assessment: controlled on rx * Assessment & Plan Note - Efrain Hodges APRN.CNP - 08/28/2024 10:49 AM EST Associated Problem(s): BMI 39.0-39.9,adult Assessment: Body mass index is 39.14 kg/m . * Assessment & Plan Note - Efrain Hodges APRN.CNP - 08/28/2024 10:49 AM EST Associated Problem(s): Prediabetes Assessment: controlled on oral agent, new A1c pending * Assessment & Plan Note - Efrain Hodges APRN.CNP - 08/28/2024 10:48 AM EST Associated Problem(s): Palpitations Assessment: hx, controlled on rx * Assessment & Plan Note - Efrain Hodges APRN.CNP - 08/28/2024 10:48 AM EST Associated Problem(s): Mixed hyperlipidemia Assessment: on rx * Assessment & Plan Note - Efrain Hodges APRN.CNP - 08/28/2024 10:47 AM EST Associated Problem(s): Essential hypertension Assessment: controlled on rx Last 14 BP Last 14 Encounter BP Readings: Date: BP: 08/28/2024 118/84 08/22/2024 114/80 07/16/2024 139/71 06/21/2024 118/82 06/10/2024 120/82 06/03/2024 146/86 08/28/2023 120/82 06/08/2023 120/80 03/28/2016 126/82 03/22/2016 122/84 02/16/2016 134/88 01/14/2016 114/82 12/15/2015 128/88 [facility] Diagnosis Postoperative pain- Primary Other acute postoperative pain Other insomnia Pre-operative examination- Primary Preoperative examination, unspecified Essential hypertension Unspecified essential hypertension Mixed hyperlipidemia Prediabetes Other abnormal glucose Non morbid obesity due to excess calories Pre-operative examination- Primary Preoperative examination, unspecified Essential hypertension Unspecified essential hypertension Mixed hyperlipidemia Palpitations Prediabetes Other abnormal glucose BMI 39.0-39.9,adult Body Mass Index 39.0-39.9, adult Irritable bowel syndrome with diarrhea Irritable bowel syndrome SCC (squamous cell carcinoma) Squamous cell carcinoma of skin, site unspecified [facility]* Diagnosis Pre-operative examination- Primary Preoperative examination, unspecified Essential hypertension Unspecified essential hypertension Mixed hyperlipidemia Prediabetes Other abnormal glucose Non morbid obesity due to excess calories Pre-operative examination- Primary Preoperative examination, unspecified Essential hypertension Unspecified essential hypertension Mixed hyperlipidemia Palpitations Prediabetes Other abnormal glucose BMI 39.0-39.9,adult Body Mass Index 39.0-39.9, adult Irritable bowel syndrome with diarrhea Irritable bowel syndrome SCC (squamous cell carcinoma) Squamous cell carcinoma of skin, site unspecified S/P shoulder surgery- Primary Other postprocedural status [facility] this [facility]* Diagnosis Pre-operative examination- Primary Preoperative examination, unspecified Essential hypertension Unspecified essential hypertension Mixed hyperlipidemia Prediabetes Other abnormal glucose Non morbid obesity due to excess calories Pre-operative examination- Primary Preoperative examination, unspecified Essential hypertension Unspecified essential hypertension Mixed hyperlipidemia Palpitations Prediabetes Other abnormal glucose BMI 39.0-39.9,adult Body Mass Index 39.0-39.9, adult Irritable bowel syndrome with diarrhea Irritable bowel syndrome SCC (squamous cell carcinoma) Squamous cell carcinoma of skin, site unspecified Vulvar abscess- Primary Other abscess of vulva Vulvar cellulitis Vaginitis and vulvovaginitis, unspecified documented in this encounter [facility] note* Diagnosis Pre-operative examination- Primary Preoperative examination, unspecified Essential hypertension Unspecified essential hypertension Mixed hyperlipidemia Prediabetes Other abnormal glucose Non morbid obesity due to excess calories Pre-operative examination- Primary Preoperative examination, unspecified Essential hypertension Unspecified essential hypertension Mixed hyperlipidemia Palpitations Prediabetes Other abnormal glucose BMI 39.0-39.9,adult Body Mass Index 39.0-39.9, adult Irritable bowel syndrome with diarrhea Irritable bowel syndrome SCC (squamous cell carcinoma) Squamous cell carcinoma of skin, site unspecified Labial abscess- Primary Other abscess of vulva [facility] this [facility]* Diagnosis Pre-operative examination- Primary Preoperative examination, unspecified Essential hypertension Unspecified essential hypertension Mixed hyperlipidemia Prediabetes Other abnormal glucose Non morbid obesity due to excess calories Pre-operative examination- Primary Preoperative examination, unspecified Essential hypertension Unspecified essential hypertension Mixed hyperlipidemia Palpitations Prediabetes Other abnormal glucose BMI 39.0-39.9,adult Body Mass Index 39.0-39.9, adult Irritable bowel syndrome with diarrhea Irritable bowel syndrome SCC (squamous cell carcinoma) Squamous cell carcinoma of skin, site unspecified Subareolar mass of right breast- Primary [facility] this [facility]* Diagnosis Pre-operative examination- Primary Preoperative examination, unspecified Essential hypertension Unspecified essential hypertension Mixed hyperlipidemia Prediabetes Other abnormal glucose Non morbid obesity due to excess calories Pre-operative examination- Primary Preoperative examination, unspecified Essential hypertension Unspecified essential hypertension Mixed hyperlipidemia Palpitations Prediabetes Other abnormal glucose BMI 39.0-39.9,adult Body Mass Index 39.0-39.9, adult Irritable bowel syndrome with diarrhea Irritable bowel syndrome SCC (squamous cell carcinoma) Squamous cell carcinoma of skin, site unspecified Chronic pain of left knee- Primary Pain in joint, lower leg S/P shoulder surgery Other postprocedural status documented [facility] this [facility]* Diagnosis Pre-operative examination- Primary Preoperative examination, unspecified Essential hypertension Unspecified essential hypertension Mixed hyperlipidemia Prediabetes Other abnormal glucose Non morbid obesity due to excess calories Pre-operative examination- Primary Preoperative examination, unspecified Essential hypertension Unspecified essential hypertension Mixed hyperlipidemia Palpitations Prediabetes Other abnormal glucose BMI 39.0-39.9,adult Body Mass Index 39.0-39.9, adult Irritable bowel syndrome with diarrhea Irritable bowel syndrome SCC (squamous cell carcinoma) Squamous cell carcinoma of skin, site unspecified Subareolar mass of right breast [facility] this [facility]* Diagnosis Pre-operative examination- Primary Preoperative examination, unspecified Essential hypertension Unspecified essential hypertension Mixed hyperlipidemia Prediabetes Other abnormal glucose Non morbid obesity due to excess calories Pre-operative examination- Primary Preoperative examination, unspecified Essential hypertension Unspecified essential hypertension Mixed hyperlipidemia Palpitations Prediabetes Other abnormal glucose BMI 39.0-39.9,adult Body Mass Index 39.0-39.9, adult Irritable bowel syndrome with diarrhea Irritable bowel syndrome SCC (squamous cell carcinoma) Squamous cell carcinoma of skin, site unspecified Pain in joint, multiple sites- Primary documented in this encounter [facility] note* Diagnosis Pre-operative examination- Primary Preoperative examination, unspecified Essential hypertension Unspecified essential hypertension Mixed hyperlipidemia Prediabetes Other abnormal glucose Non morbid obesity due to excess calories Pre-operative examination- Primary Preoperative examination, unspecified Essential hypertension Unspecified essential hypertension Mixed hyperlipidemia Palpitations Prediabetes Other abnormal glucose BMI 39.0-39.9,adult Body Mass Index 39.0-39.9, adult Irritable bowel syndrome with diarrhea Irritable bowel syndrome SCC (squamous cell carcinoma) Squamous cell carcinoma of skin, site unspecified Vulvar abscess- Primary Other abscess of vulva documented in this encounter [facility] note* Diagnosis Pre-operative examination- Primary Preoperative examination, unspecified Essential hypertension Unspecified essential hypertension Mixed hyperlipidemia Prediabetes Other abnormal glucose Non morbid obesity due to excess calories Pre-operative examination- Primary Preoperative examination, unspecified Essential hypertension Unspecified essential hypertension Mixed hyperlipidemia Palpitations Prediabetes Other abnormal glucose BMI 39.0-39.9,adult Body Mass Index 39.0-39.9, adult Irritable bowel syndrome with diarrhea Irritable bowel syndrome SCC (squamous cell carcinoma) Squamous cell carcinoma of skin, site unspecified Pain in joint, multiple sites- Primary Osteoarthrosis multiple sites, not specified as generalized Osteoarthrosis involving, or with mention of more than one site, but not specified as generalized, site unspecified Fatty liver Other chronic nonalcoholic liver disease Malaise and fatigue Other malaise and fatigue Postmenopausal Asymptomatic postmenopausal status (age-related) (natural) documented in this encounter [facility] note* Diagnosis Pre-operative examination- Primary Preoperative examination, unspecified Essential hypertension Unspecified essential hypertension Mixed hyperlipidemia Prediabetes Other abnormal glucose Non morbid obesity due to excess calories Pre-operative examination- Primary Preoperative examination, unspecified Essential hypertension Unspecified essential hypertension Mixed hyperlipidemia Palpitations Prediabetes Other abnormal glucose BMI 39.0-39.9,adult Body Mass Index 39.0-39.9, adult Irritable bowel syndrome with diarrhea Irritable bowel syndrome SCC (squamous cell carcinoma) Squamous cell carcinoma of skin, site unspecified Pain in joint, multiple sites documented in this encounter [facility] for referral (narrative)* Diagnostic Procedure Only (Routine) - Pending Review Specialty Diagnoses / Procedures Referred By Contac t Referred To Contact [facility] Diagnoses Deep dyspareunia Procedures PELVIC US WHI US PELVIC NONOBSTETRIC REAL-TIME IMAGE COMPLETE Yury Steel MD [address] [place] [address] [facility]ly [facility] [address] [place] [address] Referral ID Status Reason Start Date Expiration Date Visits Requested Visits Authorized [id number] Pending Review Auto-Generat ed Referral 06/08/2023 06/07/2024 1 1 * Diagnostic Procedure Only (Routine) - Authorized Specialty Diagnoses / Procedures Referred By Contac t Referred To Contact [facility] Diagnoses Deep dyspareunia Pelvic pain in female Procedures US FEMALE PELVIS TRANSVAG US TRANSVAGINAL Yury Steel MD [address] [place] [address] [id number] Referral ID Status Reason Start Date Expiration Date Visits Requested Visits Authorized [id number] Authorized Auto-Generat ed Referral 06/08/2023 07/07/2024 1 1 [facility] for referral (narrative)* Diagnostic Procedure Only (Routine) - Closed Specialty Diagnoses / Procedures Referred By Contac t Referred To Contact [facility] IMAG[facility] Diagnoses Deep dyspareunia Pelvic pain in female Procedures US FEMALE PELVIS TRANSVAG US TRANSVAGINAL Yury Steel MD [address] [place] [address] Us Imaging [id number] Referral ID Status Reason Start Date Expiration Date V isits Requested Visits Authorized [id number] Closed Auto-Generate d Referral 06/08/2023 07/07/2024 1 1 [facility] for referral (narrative)* Diagnostic Procedure Only (Routine) - Authorized Specialty Diagnoses / Procedures Referred By Contac t Referred To Contact [facility] Diagnoses Encounter for screening mammogram for breast cancer Procedures RUTH SCREENING W RANJANA SCREENING DIGITAL BREAST TOMOSYNTHESIS BI SCREENING MAMMOGRAPHY BI 2-VIEW BREAST INC CAD Yury Steel MD [address] [place] [address] [facility] [address] [place] [address] Referral ID Status Reason Start Date Expiration Date Visits Requested Visits Authorized [id number] Authorized Auto-Generat ed Referral 06/10/2024 07/10/2025 1 1 [facility] for referral (narrative)* Outpatient Procedure (Routine) - New Request Specialty Diagnoses / Procedures Referred By Tamar gonzalez Referred To Contact [facility] Diagnoses Pre-operative examination Procedures ECG COMPLETE ECG ROUTINE ECG W/LEAST 12 LDS W/I&R Efrain Hodges APRN.[employer] [address] [place] [address] [facility] [place] [address] [place] [address] Referral ID Status Reason Start Date Expiration Date Visits Requested Visits Authorized [id number] New Request Auto-Generat ed Referral 06/21/2025 1 1 [facility] for referral (narrative)* Diagnostic Procedure Only (Routine) - Authorized Specialty Diagnoses / Procedures Referred By Tamar gonzalez Referred To Contact [facility] Diagnoses Subareolar mass of right breast Procedures US BREAST LTD RIGHT US BREAST UNI REAL TIME WITH IMAGE LIMITED Yesenia Cole APRN.CNP [address] [place] [address] [facility] [address] [place] [address] Referral ID Status Reason Start Date Expiration Date Visits Requested Visits Authorized [id number] Authorized Auto-Generat ed Referral 10/17/2024 11/16/2025 1 1 * Diagnostic Procedure Only (Routine) - Authorized Specialty Diagnoses / Procedures Referred By Contac t Referred To Contact [facility] Diagnoses Subareolar mass of right breast Procedures RUTH DIAGNOSTIC RIGHT DIAGNOSTIC MAMMOGRAPHY COMPUTER-AIDED DETCJ Yesenia Dexter APRN.CNP [address] [place] [address] [facility] [address] [place] [address] Referral ID Status Reason Start Date Expiration Date Visits Requested Visits Authorized [id number] Authorized Auto-Generat ed Referral 10/17/2024 11/16/2025 1 1 [facility] ([facility]arrative)No reason for referral information availableWJ.W. [facility] Work Phone: Reason for visit Narrative* Diagnostic Procedure Only (Routine) - Closed Specialty Diagnoses / Procedures Referred By Contac t Referred To Contact XR IMAGING Diagnoses Pain Procedures XR SHOULDER GENERAL 3V OR MORE AP/TRUE AP/OTHER LEFT RADEX SHOULDER COMPLETE MINIMUM 2 VIEWS Domonique Hoang DO [address] [place] [address] [place] [id number] Referral ID Status Reason Start Date Expiration Date V isits Requested Visits Authorized [id number] Closed Auto-Generate d Referral 02/09/2024 03/10/2025 1 1 [facility] for visit Narrative* Diagnostic Procedure Only (Routine) - Closed Specialty Diagnoses / Procedures Referred By Contac t Referred To Contact [facility] Diagnoses Encounter for screening mammogram for breast cancer Procedures RUTH SCREENING W RANJANA SCREENING DIGITAL BREAST TOMOSYNTHESIS BI SCREENING MAMMOGRAPHY BI 2-VIEW BREAST INC Yury Ramirez MD [address] [place] [address] [facility] [address] [place] [address] Referral ID Status Reason Start Date Expiration Date V isits Requested Visits Authorized [id number] Closed Auto-Generate d Referral 06/10/2024 07/10/2025 1 1 [facility] for visit Narrative* Diagnostic Procedure Only (Routine) - Closed Specialty Diagnoses / Procedures Referred By Contac t Referred To Contact [facility] Diagnoses Subareolar mass of right breast Procedures [facility] RIGHT DIAGNOSTIC MAMMOGRAPHY COMPUTER-AIDED DETCJ UNI Yesenia Cole, DUAL HOSE CEMENTER.INSPECTOR PRECISION ASSEMBLY [address] [place] [address] Phone: tel: fax: [facility] [phone] [place] [address] Referral ID Status Reason Start Date Expiration Date V isits Requested Visits Authorized [id number] Closed Auto-Generate d Referral 10/17/2024 11/16/2025 1 1 [facility] for visit Narrative* Diagnostic Procedure Only (Routine) - Closed Specialty Diagnoses / Procedures Referred By Eshaac t Referred To Contact XR IMAGING Diagnoses Pain in joint, multiple sites Procedures XR FOOT GENERAL 3V AP/LAT/OBL BILATERAL XR FOOT GENERAL 3V AP/LAT/OBL BILATERAL RADEX FOOT COMPLETE MINIMUM 3 VIEWS Mckenzie Willis, REINALDO [address] [place] [address] Phone: tel: fax: [place] [phone] Referral ID Status Reason Start Date Expiration Date V isits Requested Visits Authorized [id number] Closed Auto-Generate d Referral 12/19/2024 01/18/2026 1 1 [facility] Chief Complaint and Reason for Visit Chief Complaint LT HIP. RX HERE TACHYCARDIA STEATOSIS OF LIVER Chief Complaint TACHYCARDIA STEATOSIS OF LIVER POSSIBLE LIPOMA ON BACK Chief Complaint TACHYCARDIA STEATOSIS OF LIVER POSSIBLE LIPOMA ON BACK SCREENING Chief Complaint LESION ON BACK 3 M FU FATTY LIVER Reason for Visit Mass of subcutaneous tissue of back Steatosis of liver Gastric reflux Hepatomegaly Obesity Chief Complaint Diabetes 4 mo fu STEATOSIS OF LIVER 3 M FU Reason for Visit Elevated LDL cholest padmini level Hypertension Obesity Type 2 diabetes mellitus Gastric reflux Hepatomegaly Obesity Steatosis of liver Elevated LDL cholesterol level Hypertension Type 2 diabetes mellitus Chief Complaint 4 mo fu STEATOSIS OF LIVER 3 M FU Rash SCREENING Reason for Visit Gastric reflux Hepatomegaly Obesity Steatosis of liver Elevated LDL cholesterol level Hypertension Type 2 diabetes mellitus Contact dermatitis Chief Complaint EORDER 6 M FU Reason for Visit Elevated LDL cholest padmini level Hypertension Obesity Type 2 diabetes mellitus Chief Complaint Admit Date 6 M FU August 20, 2024 9:52am 2 DRS/ 2 ORDERS November 13, 2024 7:35 am LEFT SHOULDER. RX HERE November 22, 2024 7:00am Reason for Visit Admit Date Diarrhea August 20, 2024 9:52am Gastric reflux August 20, 2024 9:52am Metabolic dysfunction-associ ated steatotic liver disease (MASLD) August 20, 2024 9:52am Chief Complaint Admit Date 2 DRS/ 2 ORDERS November 13, 2024 7:35 am LEFT SHOULDER. RX HERE November 27, 2024 3:00pm NAFLD December 25, 2024 7:4 9am Chief Complaint Admit Date 2 DRS/ 2 ORDERS November 13, 2024 7:35 am LEFT SHOULDER. RX HERE November 27, 2024 3:00pm NAFLD December 25, 2024 7:4 9am 4 M FU January 08, 2025 9:1 9am TYPE 2 DM February 05, 2025 12:40 pm Reason for Visit Admit Date Gastric reflux January 08, 2025 9:1 9am Metabolic dysfunction-associ ated steatotic liver disease (MASLD) January 08, 2025 9:19am Chief Complaint Admit Date 2 DRS/ 2 ORDERS November 13, 2024 7:35 am LEFT SHOULDER. RX HERE November 27, 2024 3:00pm NAFLD December 25, 2024 7:4 9am 4 M FU January 08, 2025 9:1 9am TYPE 2 DM February 05, 2025 12:40 pm TYPE 2 DM March 05, 2025 9:05 am Family History No Family History Records Found Relationship Condition Age at Onset Recorded Date/T walker father Hypertension Unknown Cardiac disease Unknown Malignant neoplasm of colon Unknown Diabetes mellitus Unknown Malignant neoplasm Unknown grandmother Cardiac disease Unknown grandfather Malignant neoplasm of colon Unknown uncle Malignant neoplasm of colon Unknown aunt Diabetes mellitus Unknown Advance Directives No Advanced Directives Records Found Advance Directive Response Recorded Date/ Time Living Will No November 18, 2021 12:42pm Power of Clip On Sunglasses Inspector No November 18 12:42pm Advance Directive Response Recorded Date/ Time Living Will No November 18, 2021 11:42am Power of Clip On Sunglasses Inspector No November 18 11:42am Advance Directive Response Recorded Date/ Time Living Will No June 21 2:37pm Power of Clip On Sunglasses Inspector No June 21, 2023 2:37pm Advance Directive Response Recorded Date/ Time Living Will No June 21 1:37pm Power of Clip On Sunglasses Inspector No June 21, 2023 1:37pm Reason for Referral Specialty Diagnoses / Procedures Referred By Contac t Referred To Contact [facility] Diagnoses Degenerative superior labral [id number] (SLAP) tear of left shoulder Chronic left shoulder pain Shoulder impingement Procedures MRI SHOULDER WO IVCON LEFT MRI ANY JT UPPER EXTREMITY W/O CONTRAST Domonique Hall, DO [address] [place] [address] [place] [id number] Referral ID Status Reason Start Date Expiration Date Visits Requested Visits Authorized [id number] New Request Auto-Generat ed Referral 03/21/2024 04/20/2025 1 1 Referral ID Status Reason Start Date Expiration Date Visits Requested Visits Authorized [id number] New Request Auto-Generat ed Referral 03/21/2024 04/20/2025 1 1 Specialty Diagnoses / Procedures Referred By Contac t Referred To Contact Diagnoses S/P shoulder surgery Anthony Stone PA-C [address] [place] [id number] Referral ID Status Reason Start Date Expiration Date V isits Requested Visits Authorized [id number] Pending Review 1 1 Specialty Diagnoses / Procedures Referred By Contac t Referred To Contact Physical Therapy Diagnoses S/P shoulder surgery Procedures CONSULT TO PHYSICAL THERAPY Anthony Stone PA-C [address] [place] [id number] Referral ID Status Reason Start Date Expiration Date Visits Requested Visits Authorized [id number] Authorized PCP Requested Referral 09/30/2024 09/30/2025 1 1 Summary Purpose Additional Source Comments Goals (unrecognized section and content) Goals may be documented in a n alternate sectionGoals may be documented in an alternate sectionGoals may be documented in an alternate sectionGoals may be documented in an alternate sectionGoals may be documented in an alternate sectionGoals may be documented in an alternate sectionGoals may be documented in an alternate sectionGoals may be documented in an alternate sectionGoals may be documented in an alternate section Care Teams (unrecognized sec tion and content) Team Status: Active Member Role Status Dates Dr. Chikis Montana MD Primary Care Provider Active Team Status: Inactive Member Role Status Dates Dr. Chikis Montana MD Primary Care Provider Active Start: November 13, 2024 End: November 13, 2024 Dr. Chikis Montana MD Attending Provider Active Start: November 13, 2024 End: November 13, 2024 Dr. Chikis Montana MD Referring Provider Active Start: November 13, 2024 End: November 13, 2024 Dr. Domonique Hoang DO Other Provider Active Start: November 13, 2024 End: November 13, 2024 Team Status: Active Member Role Status Dates Dr. Chikis Montana MD Primary Care Provider Active Start: November 27, 2024 BERTHA CROCKER Attending Provider Active Start: [facility] 2024 BERTHA CROCKER Referring Provider Active Start: [facility] 2024 Team Status: Inactive Member Role Status Dates Dr. Chikis Montana MD Primary Care Provider Active Start: December 25, 2024 End: December 25, 2024 Dr. Aniceto Funk MD Attending Provider Active Start: December 25, 2024 End: December 25, 2024 Dr. Aniceto Funk MD Referring Provider Active Start: December 25, 2024 End: December 25, 2024 ALBA ANDRADE Other Provider Active Start: Dec End: December 25, 2024 Team Status: Active Member Role Status Dates Dr. Otis Acevedo DO Family Provider Active Dr. Chikis Montana MD Primary Care Provider Active Team Status: Inactive Member Role Status Dates Dr. Chikis Montana MD Primary Care Provider, Referrin g Provider Active Dr. Fallon Murry MD Attending Provider Active Team Status: Inactive Member Role Status Dates Dr. Chikis Montana MD Primary Care Provider, Referrin g Provider Active Dr. Dean Diaz DO Attending Provider Active Team Status: Inactive Member Role Status Dates Dr. Chikis Montana MD Primary Care Prov ider, Attending Provider, Referring Provider Active Team Status: Inactive Member Role Status Dates Dr. Chikis Montana MD Primary Care Provider Active Dr. Dean Diaz DO Attending Provider, Referring Provider Active Team Status: Inactive Member Role Status Dates Dr. Chikis Montana MD Primary Care Provider, Referrin g Provider Active PAMELA Sanchez Attending Provider Active Team Status: Active Member Role Status Dates Dr. Chikis Montana MD Primary Care Provider, Referrin g Provider Active Dr. Dean Diaz DO Attending Provider, Other Prov ider Active Team Status: Active Member Role Status Dates [employer] Attending Provider Active Team Status: Inactive Member Role Status Dates Dr. Chikis Montana MD Primary Care Provider, Referrin g Provider Active FARRUKH Gibson Attending Provider Active Team Status: Inactive Member Role Status Dates Dr. Chikis Montana MD Primary Care Provider Active Dr. Yury Steel DO Attending Provider, Referring Pr ovider Active Team Status: Inactive Member Role Status Dates Dr. Chikis Montana MD Primary Care Provider Active PAMELA Sanchez Attending Provider, Referring Pr ovider Active Bridal Consultant Relationship Specialty Start Date End Date Chikis Montana MD [address] [place], [place] [id number] PCP - General Family Medicine 06/05/24 Bridal Consultant Relationship Specialty Start Date End Date Chikis Montana MD [address] [place], [place] [id number] PCP - General Family Medicine 06/05/24 Bridal Consultant Relationship Specialty Start Date End Date Chikis Montana MD [address] [place], [place] [id number] PCP - General Family Medicine 06/05/24 Bridal Consultant Relationship Specialty Start Date End Date Chikis Montana MD [address] [place], [place] [id number] PCP - General Family Medicine 06/05/24 Bridal Consultant Relationship Specialty Start Date End Date Chikis Montana MD [address] [place] [address] PCP - General Family Medicine 06/05/24 Bridal Consultant Relationship Specialty Start Date End Date Chikis Montana MD [address] [place] [address] PCP - General Family Medicine 06/05/24 Bridal Consultant Relationship Specialty Start Date End Date Chikis Mnotana MD [address] [place] [address] PCP - General Family Medicine 06/05/24 Bridal Consultant Relationship Specialty Start Date End Date Chikis Montana MD [address] [place] [address] PCP - General Family Medicine 06/05/24 Bridal Consultant Relationship Specialty Start Date End Date Chikis Montana MD [address] [place] [address] PCP - General Family Medicine 06/05/24 Bridal Consultant Relationship Specialty Start Date End Date Chikis Montana MD [address] [place] [address] PCP - General Family Medicine 06/05/24 Bridal Consultant Relationship Specialty Start Date End Date Chikis Montana MD [address] [place] [address] PCP - General Family Medicine 06/05/24 Bridal Consultant Relationship Specialty Start Date End Date Chikis Montana MD [address] [place] [address] PCP - General Family Medicine 06/05/24 Bridal Consultant Relationship Specialty Start Date End Date Chikis Montana MD [address] [place] [address] PCP - General Family Medicine 06/05/24 Bridal Consultant Relationship Specialty Start Date End Date Chikis Montana MD [address] [place] [address] PCP - General Family Medicine 06/05/24 Bridal Consultant Relationship Specialty Start Date End Date Chikis Montana MD [address] [place] [address] PCP - General Family Medicine 06/05/24 Bridal Consultant Relationship Specialty Start Date End Date Chikis Montana MD [address] [place] [address] PCP - General Family Medicine 06/05/24 Bridal Consultant Relationship Specialty Start Date End Date Chikis Montana MD [address] [place] [address] PCP - General Family Medicine 06/05/24 Bridal Consultant Relationship Specialty Start Date End Date Chikis Montana MD [address] [place] [address] PCP - General Family Medicine 06/05/24 Team Status: Inactive Member Role Status Dates Dr. Chikis Montana MD Primary Care Provider Active Start: August 20, 2024 End: August 20, 2024 Dr. Chikis Montana MD Referring Provider Active Start: August 20, 2024 End: August 20, 2024 Dr. Aniceto Funk MD Attending Provider Active Start: August 20, 2024 End: August 20, 2024 Team Status: Active Member Role Status Dates Dr. Chikis Montana MD Primary Care Provider Active Start: November 22, 2024 BERTHA CROCKER Attending Provider Active Start: [facility] 2024 BERTHA CROCKER Referring Provider Active Start: [facility] 2024 Bridal Consultant Relationship Specialty Start Date End Date Chikis Montana MD [address] [place] [address] PCP - General Family Medicine 06/05/24 Bridal Consultant Relationship Specialty Start Date End Date Chikis Montana MD [address] [place] [address] PCP - General Family Medicine 06/05/24 Team Status: Inactive Member Role Status Dates Dr. Chikis Montana MD Primary Care Provider Active Start: January 08, 2025 End: January 08, 2025 Dr. Chikis Montana MD Referring Provider Active Start: January 08, 2025 End: January 08, 2025 Dr. Aniceto Funk MD Attending Provider Active Start: January 08, 2025 End: January 08, 2025 Team Status: Inactive Member Role Status Dates Dr. Chikis Montana MD Primary Care Provider Active Start: February 05, 2025 End: February 08, 2025 Dr. Aniceto Funk MD Attending Provider Active Start: February 05, 2025 End: February 08, 2025 Dr. Aniceto Funk MD Referring Provider Active Start: February 05, 2025 End: February 08, 2025 Team Status: Active Member Role/Relationship Status Dates Dr. Chikis Montana MD Primary Care Provider Active Team Status: Inactive Member Role/Relationship Status Dates Dr. Chikis Montana MD Primary Care Provider Active Start: November 13, 2024 End: November 13, 2024 Dr. Chikis Montana MD Attending Provider Active Start: November 13, 2024 End: November 13, 2024 Dr. Chikis Montana MD Referring Provider Active Start: November 13, 2024 End: November 13, 2024 Dr. Domonique Hoang DO Other Provider Active Start: November 13, 2024 End: November 13, 2024 Team Status: Active Member Role/Relationship Status Dates Dr. Chikis Montana MD Primary Care Provider Active Start: November 27, 2024 BERTHA CROCKER Attending Provider Active Start: [facility] 2024 BERTHA CROCKER Referring Provider Active Start: [facility] 2024 Team Status: Inactive Member Role/Relationship Status Dates Dr. Chikis Montana MD Primary Care Provider Active Start: December 25, 2024 End: December 25, 2024 Dr. Aniceto Funk MD Attending Provider Active Start: December 25, 2024 End: December 25, 2024 Dr. Aniceto Funk MD Referring Provider Active Start: December 25, 2024 End: December 25, 2024 ALBA ANDRADE Other Provider Active Start: Dec End: December 25, 2024 Team Status: Inactive Member Role/Relationship Status Dates Dr. Chikis Montana MD Primary Care Provider Active Start: January 08, 2025 End: January 08, 2025 Dr. Chikis Montana MD Referring Provider Active Start: January 08, 2025 End: January 08, 2025 Dr. Aniceto Funk MD Attending Provider Active Start: January 08, 2025 End: January 08, 2025 Team Status: Inactive Member Role/Relationship Status Dates Dr. Chikis Montana MD Primary Care Provider Active Start: February 05, 2025 End: February 08, 2025 Dr. Aniceto Funk MD Attending Provider Active Start: February 05, 2025 End: February 08, 2025 Dr. Aniceto Funk MD Referring Provider Active Start: February 05, 2025 End: February 08, 2025 Team Status: Inactive Member Role/Relationship Status Dates Dr. Chikis Montana MD Primary Care Provider Active Start: March 05, 2025 End: March 10, 2025 Dr. Aniceto Funk MD Attending Provider Active Start: March 05, 2025 End: March 10, 2025 Dr. Aniceto Funk MD Referring Provider Active Start: March 05, 2025 End: March 10, 2025 Source Comments (unrecognize d section and content) In the event this informatio n is protected by the Federal Confidentiality of Alcohol and Drug Abuse Patient Records regulations: The Federal rules restrict any use of the information to criminally investigate or prosecute any alcohol or drug abuse patient.[facility] the event this information is protected by the Federal Confidentiality of Alcohol and Drug Abuse Patient Records regulations: The Federal rules restrict any use of the information to criminally investigate or prosecute any alcohol or drug abuse patient.[facility] the event this information is protected by the Federal Confidentiality of Alcohol and Drug Abuse Patient Records regulations: The Federal rules restrict any use of the information to criminally investigate or prosecute any alcohol or drug abuse patient.[facility] the event this information is protected by the Federal Confidentiality of Alcohol and Drug Abuse Patient Records regulations: The Federal rules restrict any use of the information to criminally investigate or prosecute any alcohol or drug abuse patient.[facility] Center[facility] the event this information is protected by the Federal Confidentiality of Alcohol and Drug Abuse Patient Records regulations: The Federal rules restrict any use of the information to criminally investigate or prosecute any alcohol or drug abuse patient.[facility] Center[facility] the event this information is protected by the Federal Confidentiality of Alcohol and Drug Abuse Patient Records regulations: The Federal rules restrict any use of the information to criminally investigate or prosecute any alcohol or drug abuse patient.[facility] Center[facility] the event this information is protected by the Federal Confidentiality of Alcohol and Drug Abuse Patient Records regulations: The Federal rules restrict any use of the information to criminally investigate or prosecute any alcohol or drug abuse patient.[facility] Center[facility] the event this information is protected by the Federal Confidentiality of Alcohol and Drug Abuse Patient Records regulations: The Federal rules restrict any use of the information to criminally investigate or prosecute any alcohol or drug abuse patient.[facility] Center[facility] the event this information is protected by the Federal Confidentiality of Alcohol and Drug Abuse Patient Records regulations: The Federal rules restrict any use of the information to criminally investigate or prosecute any alcohol or drug abuse patient.[facility] Center[facility] the event this information is protected by the Federal Confidentiality of Alcohol and Drug Abuse Patient Records regulations: The Federal rules restrict any use of the information to criminally investigate or prosecute any alcohol or drug abuse patient.[facility] Center[facility] the event this information is protected by the Federal Confidentiality of Alcohol and Drug Abuse Patient Records regulations: The Federal rules restrict any use of the information to criminally investigate or prosecute any alcohol or drug abuse patient.[facility] Center[facility] the event this information is protected by the Federal Confidentiality of Alcohol and Drug Abuse Patient Records regulations: The Federal rules restrict any use of the information to criminally investigate or prosecute any alcohol or drug abuse patient.[facility] Center[facility] the event this information is protected by the Federal Confidentiality of Alcohol and Drug Abuse Patient Records regulations: The Federal rules restrict any use of the information to criminally investigate or prosecute any alcohol or drug abuse patient.[facility] Center[facility] the event this information is protected by the Federal Confidentiality of Alcohol and Drug Abuse Patient Records regulations: The Federal rules restrict any use of the information to criminally investigate or prosecute any alcohol or drug abuse patient.[facility] Center[facility] the event this information is protected by the Federal Confidentiality of Alcohol and Drug Abuse Patient Records regulations: The Federal rules restrict any use of the information to criminally investigate or prosecute any alcohol or drug abuse patient.[facility] Center[facility] the event this information is protected by the Federal Confidentiality of Alcohol and Drug Abuse Patient Records regulations: The Federal rules restrict any use of the information to criminally investigate or prosecute any alcohol or drug abuse patient.[facility] CenterIn the event this information is protected by the Federal Confidentiality of Alcohol and Drug Abuse Patient Records regulations: The Federal rules restrict any use of the information to criminally investigate or prosecute any alcohol or drug abuse patient.[facility] CenterIn the event this information is protected by the Federal Confidentiality of Alcohol and Drug Abuse Patient Records regulations: The Federal rules restrict any use of the information to criminally investigate or prosecute any alcohol or drug abuse patient.[facility] CenterIn the event this information is protected by the Federal Confidentiality of Alcohol and Drug Abuse Patient Records regulations: The Federal rules restrict any use of the information to criminally investigate or prosecute any alcohol or drug abuse patient.[facility] CenterIn the event this information is protected by the Federal Confidentiality of Alcohol and Drug Abuse Patient Records regulations: The Federal rules restrict any use of the information to criminally investigate or prosecute any alcohol or drug abuse patient.[facility] CenterIn the event this information is protected by the Federal Confidentiality of Alcohol and Drug Abuse Patient Records regulations: The Federal rules restrict any use of the information to criminally investigate or prosecute any alcohol or drug abuse patient.[facility] CenterIn the event this information is protected by the Federal Confidentiality of Alcohol and Drug Abuse Patient Records regulations: The Federal rules restrict any use of the information to criminally investigate or prosecute any alcohol or drug abuse patient.[facility] CenterIn the event this information is protected by the Federal Confidentiality of Alcohol and Drug Abuse Patient Records regulations: The Federal rules restrict any use of the information to criminally investigate or prosecute any alcohol or drug abuse patient.[facility] CenterIn the event this information is protected by the Federal Confidentiality of Alcohol and Drug Abuse Patient Records regulations: The Federal rules restrict any use of the information to criminally investigate or prosecute any alcohol or drug abuse patient.[facility] CenterIn the event this information is protected by the Federal Confidentiality of Alcohol and Drug Abuse Patient Records regulations: The Federal rules restrict any use of the information to criminally investigate or prosecute any alcohol or drug abuse patient.[facility] CenterIn the event this information is protected by the Federal Confidentiality of Alcohol and Drug Abuse Patient Records regulations: The Federal rules restrict any use of the information to criminally investigate or prosecute any alcohol or drug abuse patient.[facility] CenterIn the event this information is protected by the Federal Confidentiality of Alcohol and Drug Abuse Patient Records regulations: The Federal rules restrict any use of the information to criminally investigate or prosecute any alcohol or drug abuse patient.[facility] CenterIn the event this information is protected by the Federal Confidentiality of Alcohol and Drug Abuse Patient Records regulations: The Federal rules restrict any use of the information to criminally investigate or prosecute any alcohol or drug abuse patient.[facility] CenterIn the event this information is protected by the Federal Confidentiality of Alcohol and Drug Abuse Patient Records regulations: The Federal rules restrict any use of the information to criminally investigate or prosecute any alcohol or drug abuse patient.[facility] CenterIn the event this information is protected by the Federal Confidentiality of Alcohol and Drug Abuse Patient Records regulations: The Federal rules restrict any use of the information to criminally investigate or prosecute any alcohol or drug abuse patient.[facility] CenterIn the event this information is protected by the Federal Confidentiality of Alcohol and Drug Abuse Patient Records regulations: The Federal rules restrict any use of the information to criminally investigate or prosecute any alcohol or drug abuse patient.[facility] CenterIn the event this information is protected by the Federal Confidentiality of Alcohol and Drug Abuse Patient Records regulations: The Federal rules restrict any use of the information to criminally investigate or prosecute any alcohol or drug abuse patient.[facility] CenterIn the event this information is protected by the Federal Confidentiality of Alcohol and Drug Abuse Patient Records regulations: The Federal rules restrict any use of the information to criminally investigate or prosecute any alcohol or drug abuse patient.[facility] CenterIn the event this information is protected by the Federal Confidentiality of Alcohol and Drug Abuse Patient Records regulations: The Federal rules restrict any use of the information to criminally investigate or prosecute any alcohol or drug abuse patient.[facility] CenterIn the event this information is protected by the Federal Confidentiality of Alcohol and Drug Abuse Patient Records regulations: The Federal rules restrict any use of the information to criminally investigate or prosecute any alcohol or drug abuse patient.[facility] Reason for Visit (unrecogniz ed section and content) Reason Comments Received Outside Medical Records Reason Comments Well Woman Reason Comments Radiology US Specialty Diagnoses / Procedures Referred By Tamar gonzalez Referred To Contact US IMAGING Diagnoses Deep dyspareunia Pelvic pain in female Procedures US FEMALE PELVIS TRANSVAG US TRANSVAGINAL Yury Steel MD [address] [place] [address] [place] [id number] Referral ID Status Reason Start Date Expiration Date V isits Requested Visits Authorized [id number] Closed Auto-Generate d Referral 06/08/2023 07/07/2024 1 1 Reason Comments New Pain Reason Comments Follow Up Reason Comments Follow Up Wants to go forward with surgery option and the details Reason Comments Well Woman Reason Comments Consult Reason Comments Request Outside Medical Records Reason Comments Post Op Pain Reason Comments Follow Up Pelvic exam only-- h ad annual 06/10/2024, without pelvic exam Reason Comments Consult Reason Comments Orders Specialty Diagnoses / Procedures Referred By Tamar gonzalez Referred To Contact Diagnoses Complete tear of left rotator cuff, unspecified whether traumatic Chronic left shoulder pain Complete tear of left rotator cuff, unspecified whether traumatic [M75.122] Chronic left shoulder pain [M25.512, G89.29] Procedures SURGICAL ARTHROSCOPY SHOULDER W/ROTATOR CUFF RPR ARTHROSCOPY SHOULDER ROTATOR CUFF [facility] [address] [place] [id number] Referral ID Status Reason Start Date Expiration Date Visits Re quested Visits Authorized [id number] 1 1 Reason Comments Established Patient Follow Up Post Op Reason Comments Vaginal Problem Reason Comments Follow Up Recheck abscess Reason Comments Post Op Pain Follow Up Reason Comments Bilateral Knee Pain Reason Comments Follow Up Right labial lump Reason Comments Joint Pain Specialty Diagnoses / Procedures Referred By Tamar gonzalez Referred To Contact Rheumatology Diagnoses Pain in joint, multiple sites Procedures CONSULT TO RHEUM/IMMUN DISEASE OFFICE/OUTPATIENT [facility] 60 MINUTES Domonique Hoang DO [address] [place] [address] Phone: tel: fax: Referral ID Status Reason Start Date Expiration Date V isits Requested Visits Authorized [id number] Closed PCP Requested Referral 11/22/2024 11/22/2025 1 1 Scheduled Active and Recently Administ ered Medications (unrecognized section and content) Medication Order 09/15/2024 09/16/2024 09/17/2024 acetaminophen 1,000 mg tab(s) (TYLENOL) (COMPLETED) 1,000 mg, ORAL, PRE-OP ONCE, 1 dose, On Mon09/17/24 at 0700, Preprocedure 0719 (Given - Provid er: Karyn Alarcon RN) ceFAZolin iv piggyback 2 g in D5W (iso-osmotic) 100 mL (ANCEF) (COMPLETED) 2 g, INTRAVENOUS, at 200 mL/hr, Administer over 30 Minutes, PRE-OP ONCE, 1 dose, On Mon09/17/24 at 0700, Orthopedic Cases - MRSA Negative or Low Risk PRE-OP ANTIBIOTIC ADMINISTER ONLY IN SURGICAL AREA DO NOT ADMINSTER ON THE FLOOR Refrigerate, Antimicrobial indication: Prophylaxis, Preprocedure 0721 (Sent with Kay ent - Provider: Karyn Alarcon RN)0746 (Given - Provider: Dana Hernández APRN.BIOPHYSICS TEACHER) midazolam (PF) 2 mg injection (VERSED) (COMPLETED) 2 mg, INTRAVENOUS, ONCE, 1 dose, On Mon09/17/24 at 0700, For peripheral nerve block, start with 2mg IV and repeat 2mg in 5 minutes x1 PRN, Preprocedure 0720 (Given - Provid er: Karyn Alarcon RN) promethazine 12.5 mg tab(s) (PHENERGAN) (COMPLETED) 12.5 mg, ORAL, PRE-OP ONCE, 1 dose, On Mon09/17/24 at 0700, Preprocedure 0719 (Given - Provid er: Karyn Alarcon RN) scopolamine (delivers 1 mg over 3 days) 1 Patch (TRANSDERM-SCOP) 1 Patch, TRANSDERMAL, Administer over 24 Hours, ONCE, 1 dose, On Mon09/17/24 at 0700, Apply patch behind ear. Each time a new patch is needed it should be placed behind the alternate ear from the previous patch. Remove old patch. Each transdermal system contains 1.5 mg scopolamine base and delivers 1 mg over 3 days., Preprocedure 07 (Given - Provid er: Karyn Alarcon RN) Continuous Medication Order 09/15/2024 09/16/2024 09/17/2024 lactated ringers iv infusion 5-30 mL/hr, INTRAVENOUS, CONTINUOUS, Starting on Mon09/17/24 at 0900, Until Mon09/18/24 at 0303, Recovery or Phase I (only) 0900 (Due) PRN Medication Order 09/15/2024 09/16/2024 09/17/2024 diphenhydrAMINE 25 mg injection (BENADRYL) 25 mg, INTRAVENOUS, EVERY 4 HOURS NEEDED, 2 doses, Starting on Mon09/17/24 at 0855, Until Mon09/18/24 at 0303, itching/rash, May repeat 25 mg IV X1 AFTER 4 HOURS for continued puritis, Recovery or Phase I (only) EPINEPHrine 1 mg in NaCl (PF) 0.9% 3,000 mL (CANCELED) X (OR/PROCEDURE) PRN, Starting on Mon09/17/24 at 0817, Until Mon09/17/24 at 0853, Intraprocedure 0817 (Given - Provid er: Domonique Hoang, DO - Comment: shoulder arthroscopy) fentaNYL 50 mcg/mL 50 mcg injection (SUBLIMAZE) 50 mcg, INTRAVENOUS, EVERY 10 MINUTES NEEDED, 4 doses, Starting on Mon09/17/24 at 0855, Until Mon09/18/24 at 0303, Moderate Pain (4-6) - Parenteral, Severe Pain (>/=7) - Parenteral, FIRST LINE THERAPY, Every 10 minutes., Recovery or Phase I (only) HYDROcodone 5 mg - acetaminophen 325 mg tablet (NORCO) 1 tablet, ORAL, NEEDED, 1 dose, Starting on Mon09/17/24 at 0855, Until Mon09/18/24 at 0303, Mild Pain (1-3) - Enteral, Moderate Pain (4-6) - Enteral, Recovery or Phase I (only) HYDROmorphone 1 mg injection (DILAUDID) 1 mg, INTRAVENOUS, DIRECTED NEEDED, 4 doses, Starting on Mon09/17/24 at 0855, Until Mon09/18/24 at 0303, Mild Pain (1-3) - Parenteral, breakthrough pain, SECOND LINE THERAPY, Every 5-15 mins prn USE FOR MILD PAIN ONLY IF PATIENT IS UNABLE TO TOLERATE ORAL THERAPY Caution: IV hydromorphone is approximately 8 times MORE POTENT than IV morphine. For example, hydromorphone 1mg IV = morphine 8mg IV, Recovery or Phase I (only) meperidine (PF) 12.5 mg injection (DEMEROL) 12.5 mg, INTRAVENOUS, NEEDED, Starting on Mon09/17/24 at 0855, Until Mon09/18/24 at 0303, for shivering, May Repeat 12.5 mg in 10 minutes X1 for Continued Shivering, Recovery or Phase I (only) prochlorperazine 10 mg injection (COMPAZINE) 10 mg, INTRAVENOUS, EVERY 6 HOURS NEEDED, Starting on Mon09/17/24 at 0855, Until Mon09/18/24 at 0303, Nausea/Vomiting - First Line - Parenteral, EVERY 6 HOURS NEEDED Protect From Light, Recovery or Phase I (only) INFORMATION SOURCE (unrecogn ized section and content) DATE CREATED AUTHOR 09/23/2024 [facility] DATE CREATED AUTHOR AUTHOR'S ORGANIZ ATION 12/23/2024 [facility] DATE CREATED AUTHOR AUTHOR'S ORGANIZ ATION 03/12/2025 [facility] FOR RECORDS PERTAINING TO PATIENTS WHO ARE OR HAVE BEEN ENROLLED IN A CHEMICAL DEPENDENCY/SUBSTANCEABUSE PROGRAM, SOME INFORMATION MAY BE OMITTED. This clinical summary was aggregated from multiple sources. Caution should be exercised in using it in the provision of clinical care. This summary normalizes information from multiple sources, and as a consequence, information in this document may materially change the coding, format and clinical context of patient data. In addition, data may be omitted in some cases. CLINICAL DECISIONS SHOULD BE BASED ON THE PRIMARY CLINICAL RECORDS. [employer] [facility]. provides no warranty or guarantee of the accuracy or completeness of information in this document.
[2025-03-23 23:00] VITALS: BP 169/101; PULSE 90; RESP 13; O2SAT 96
--- NOTE | 2025-03-23 23:20 | RAD_ITS ---
PROCEDURE: WRIST MIN 3 VIEWS 03/23/2025 REASON FOR EXAM: INJURY TECHNIQUE: WRIST MIN 3 VIEWS COMPARISON: No FINDINGS: On one view only, there is an obliquely vertical lucency through the base of the radial styloid process, without definite cortical disruption. The wrist bones are intact. RAD/Wrist min 3 Views IMPRESSION: Possible nondisplaced radial styloid process fracture. Correlate with symptoms . Reading [facility]
--- NOTE | 2025-03-23 23:20 | RAD_ITS ---
PROCEDURE: SHOULDER MIN 2 VIEWS 03/23/2025 REASON FOR EXAM: INJURY TECHNIQUE: SHOULDER MIN 2 VIEWS COMPARISON: 08/14/2018 FINDINGS: Status post right shoulder surgery. Anchoring screw in humeral head. No fracture or dislocation. RAD/Shoulder min 2 Views IMPRESSION: No acute injury. Reading Location: [place] [address]
--- NOTE | 2025-03-23 23:20 | RAD_ITS ---
PROCEDURE: ELBOW MIN 3 VIEWS 03/23/2025 REASON FOR EXAM: INJURY TECHNIQUE: ELBOW MIN 3 VIEWS COMPARISON: No FINDINGS: Elbow joint effusion. No dislocation. Acute anterolateral radial head/neck impaction fracture. RAD/Elbow min 3 Views IMPRESSION: Proximal radial injury Reading Location: [place] [address]
--- NOTE | 2025-03-23 23:20 | RAD_ITS ---
PROCEDURE: HAND MIN 3 VIEWS 03/23/2025 REASON FOR EXAM: INJURY TECHNIQUE: HAND MIN 3 VIEWS COMPARISON: No FINDINGS: No fracture or dislocation. RAD/Hand Min 3 Views IMPRESSION: No acute injury Reading Location: [place] [address]
--- NOTE | 2025-03-23 23:20 | RAD_ITS ---
PROCEDURE: HIP, UNI W/ PELVIS 2-3 VIEWS 03/23/2025 REASON FOR EXAM: INJURY TECHNIQUE: HIP, UNI W/ PELVIS 2-3 VIEWS COMPARISON: 12/31/2021 FINDINGS: Intact pelvic ring. No left-sided hip fracture or dislocation. RAD/HIP, UNI W/ Pelvis 2-3 Views IMPRESSION: No acute findings Reading Location: [place] [address]
--- NOTE | 2025-03-23 23:20 | RAD_ITS ---
PROCEDURE: KNEE 1 OR 2 VIEWS 03/23/2025 REASON FOR EXAM: INJURY TECHNIQUE: KNEE 1 OR 2 VIEWS COMPARISON: 11/13/2024 FINDINGS: Patellar enthesophyte. Moderate knee joint effusion. No fracture or dislocation. RAD/Knee 1 or 2 Views IMPRESSION: Moderate knee joint effusion. Correlate for internal soft tissue injury. Reading Location: [place] [address]
[2025-03-24] VITALS: BP 163/90; PULSE 88; RESP 16; O2SAT 96
[2025-03-24 01:00] VITALS: BP 145/101; PULSE 70; RESP 16; O2SAT 99
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
[2025-03-24 01:54] VITALS: BP 154/101; PULSE 78; RESP 19; TEMP 36.6; O2SAT 100
== END 2025-03-24 02:14 | disposition home or self-care (01) ==
PROVIDERS: Emergency Provider Emergency Medicine; PCP Family Medicine; Visit Provider Emergency Medicine
DX: S52.124A Nondisplaced fracture of head of right radius, initial encounter for closed fracture (principal); E11.9 Type 2 diabetes mellitus without complications; Z79.4 Long term (current) use of insulin; E66.9 Obesity, unspecified; Z90.710 Acquired absence of both cervix and uterus; I10 Essential (primary) hypertension; M25.462 Effusion, left knee; V00.841A Fall from standing electric scooter, initial encounter; Y92.828 Other wilderness area as the place of occurrence of the external cause; Z79.899 Other long term (current) drug therapy; Z79.84 Long term (current) use of oral hypoglycemic drugs; Z79.85 Long-term (current) use of injectable non-insulin antidiabetic drugs; Z98.51 Tubal ligation status; Z90.49 Acquired absence of other specified parts of digestive tract
CPT/HCPCS: 29125; 70450; 70486; 72125; 73030; 73080; 73110; 73130; 73502; 73560; 96374; 96375; 99285; A4216; J2405

== ENCOUNTER → 2025-04-09 | Outpatient (CLI) | payer OTHER, SELFPAY ==
--- NOTE | 2025-04-09 08:04 | MRI_ITS ---
PROCEDURE: LOWER EXT JOINT ONLY (ROUTINE) 04/09/2025 REASON FOR EXAM: PAIN IN LEFT KNEE TECHNIQUE: T1, T2, PD, LOWER EXT JOINT ONLY (ROUTINE) Multiplanar and multisequence images were obtained without IV contrast administration. COMPARISON: COMPARISON : March 23, 2025 x-ray FINDINGS: Bone Marrow: There is a 1.4 x 1.2 x 0.8 cm complex developing osteochondral defect in the medial femoral condyle with adjacent marrow edema. Which extends the articular surface consistent with a nondisplaced fracture. There is subcortical cyst formation and marrow edema throughout the superior central patellar articular surface. There is a 1.1 x 0.8 cm interosseous ganglion deep to the root of the medial meniscus. Cruciate ligaments: There is a edema and attenuation throughout the proximal portion of the anterior cruciate ligament with lax components, grade 2-3 sprain. The posterior cruciate appears intact. Collateral ligaments: There is a edema, thickening and attenuation in the proximal portion of the medial collateral ligament without laxity, grade 2 sprain. There is a edema, thickening and attenuation of the arcuate ligament without laxity, grade 2 sprain. There is a edema and attenuation throughout the lateral collateral ligament without laxity, grade 2 sprain. The popliteus and distal biceps tendon appear intact. Menisci: There is a vertical tear in the posterior horn of the lateral meniscus which extends to the tibial surface, sagittal image 21/32. There is a complex tear of the root of the medial meniscus with a horizontal component extending to the femoral surface. There is a horizontal tear of the body of the medial meniscus which extends to the femoral surface, with extrusion. Extensor mechanism: There is moderate distal quadriceps and distal patellar tendon tendinopathy without full-thickness tear. Effusion: There is a large joint effusion. Plica are noted in the superior joint space. There is a Solis's cyst measuring 5.0 x 2.5 by 1.1 cm. There is fluid in the prepatellar soft tissues, with bursitis. Cartilage: A fissure is noted in the central portion of the lateral patellar facet. There is severe chondromalacia in the medial compartment. MRI/Lower Ext Joint Only (Routine) IMPRESSION: There is a 1.4 x 1.2 x 0.8 cm complex developing osteochondral defect in the me dial femoral condyle with adjacent marrow edema. Which extends the articular surface consistent with a nondisplaced fracture. There is subcortical cyst formation and marrow edema throughout the superior ce ntral patellar articular surface. There is a 1.1 x 0.8 cm interosseous ganglion deep to the root of the medial me niscus. There is a edema and attenuation throughout the proximal portion of the anterio r cruciate ligament with lax components, grade 2-3 sprain. There is a edema, thickening and attenuation in the proximal portion of the med ial collateral ligament without laxity, grade 2 sprain. There is a edema, thickening and attenuation of the arcuate ligament without la xity, grade 2 sprain. There is a edema and attenuation throughout the lateral collateral ligament wit hout laxity, grade 2 sprain. There is a vertical tear in the posterior horn of the lateral meniscus which ex tends to the tibial surface, sagittal image . There is a complex tear of the root of the medial meniscus with a horizontal co mponent extending to the femoral surface. There is a horizontal tear of the body of the medial meniscus which extends to the femoral surface, with extrusion. There is moderate distal quadriceps and distal patellar tendon tendinopathy wit hout full-thickness tear. There is a large joint effusion. Plica are noted in the superior joint space. There is a Solis's cyst measuring 5.0 x 2.5 by 1.1 cm. There is fluid in the prepatellar soft tissues, with bursitis. A fissure is noted in the central portion of the lateral patellar facet. There is severe chondromalacia in the medial compartment. Reading Location: [facility]
== END | disposition home or self-care (01) ==
LOC: OPMRI 07:58
PROVIDERS: PCP Family Medicine
DX: M25.562 Pain in left knee (principal)
CPT/HCPCS: 73721

== ENCOUNTER → 2025-04-25 | Outpatient (CLI) | payer OTHER, SELFPAY ==
[2025-04-25 12:36] LABS: Hematocrit 47.6 % (37-47); Hemoglobin 15.0 g/dL (12.0-15.0); Immature Granulocytes Count 0.030 X10^3/uL (0.0-0.0); Mean Corp Hgb Conc 31.5 g/dL (32-36); Mean Corpuscular Volume 88.1 fL (81-99); Mean Platelet Vol. 11.3 fl (6.2-12.0); NRBC Flagged by Analyzer 0 % (0-5); Platelet Count 240 K/mm3 (150-450); RBC Distribution Width CV 13.2 % (11.6-14.6); RBC Distribution Width SD 42.7 fl (35.1-43.9); Red Blood Count 5.40 M/mm3 (4.2-5.4); White Blood Count 7.0 K/mm3 (4.4-11.0)
[2025-04-25 12:47] LABS: Prothrombin Time (Protime)PT. 13.0 SECONDS (11.7-14.9)
[2025-04-25 13:26] LABS: AST(SGOT) 20 U/L (<=31); Alanine Aminotransfer ALT/SGPT 41 U/L (<=34); Albumin, Serum 4.2 g/dL (3.5-5.0); Alkaline Phosphatase 75 U/L (35-104); Anion Gap 13 (5-15); BUN 15 mg/dL (4-19); BUN/Creat Ratio 18.5 RATIO (10-20); CRP 6.88 mg/L (0.0-3.0); Calcium,Total 9.7 mg/dL (7.6-11.0); Carbon Dioxide 23.3 mmol/L (21.0-32.0); Chloride 105 mmol/L (98-108); Globulin 3.2 g/dL (2.2-4.2); Glucose 114 mg/dL (70-99); Potassium 4.2 mmol/L (3.3-5.1)
== END | disposition home or self-care (01) ==
LOC: MTLAB 10:29
PROVIDERS: PCP Family Medicine; Referring Provider Internal Medicine; Visit Provider Internal Medicine
DX: K76.0 Fatty (change of) liver, not elsewhere classified (principal); E66.01 Morbid (severe) obesity due to excess calories; Z68.41 Body mass index [BMI] 40.0-44.9, adult; E11.9 Type 2 diabetes mellitus without complications; K21.9 Gastro-esophageal reflux disease without esophagitis; E78.00 Pure hypercholesterolemia, unspecified; R16.0 Hepatomegaly, not elsewhere classified
CPT/HCPCS: 36415; 80053; 85025; 85610; 86140

== ENCOUNTER → 2025-08-13 | Outpatient (CLI) | payer OTHER, SELFPAY ==
--- NOTE | 2025-08-13 07:55 | VDLE_ITS ---
Reason For Study Reason For Study: HX LLE DVT RIGHT LEFT CFV is compressible, spontaneous, phasic, competent GSV is normal. and demonstrates normal augmentation. CFV is compressible, spontaneous, phasic, competent, Procedure and demonstrates normal augmentation. This is a venous duplex using B-mode, color flow and FV is compressible, spontaneous, phasic, competent spectral Doppler. and demonstrates normal augmentation. Exam performed in department. POP V is compressible, spontaneous, phasic, competent The exam was diagnostic. and demonstrates normal augmentation. T/P Trunk is compressible. PTV is compressible. LT PerV is compressible. VL/Venous Duplex US, Unilateral Interpretation Summary Deep veins of the left lower extremity are patent and compressible segmentally. There is no evidence of left lower extremity deep vein thrombosis. Valvular competence appears intact within the p roximal deep venous system on the left . The left great saphenous vein appears patent and compressible segmentally. The right common femoral vein is patent and compressible . Ordering Physician: Chikis Montana Referring Physician: Chikis Montana Performed By: Angel Qiu RVT and Student
== END | disposition home or self-care (01) ==
LOC: CVS 07:54
PROVIDERS: PCP Family Medicine; Referring Provider Family Medicine; Visit Provider Family Medicine
DX: I82.402 Acute embolism and thrombosis of unspecified deep veins of left lower extremity (principal)
CPT/HCPCS: 93971

== ENCOUNTER 2025-08-22 07:00 | Outpatient (RCR) | payer OTHER, SELFPAY ==
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
--- NOTE | 2025-05-19 17:09 | HP.PTEVAL3 ---
Patient's Visit Information Visit Information Visit Information: GABRIEL WADE is a 55 year old F referred to Physical Therapy by Dr. Domonique Hoang DO with a diagnosis of . Date of Evaluation: Physical Therapist: Bunny Sosa, PT, ATC Anticipated Interventions text: Thank you for the opportunity to evaluate your patient. For Medicare and Medicare HMO plans, please review the plan of care and approve it. It will need to be FAXED BACK to us at [phone] for Medicare purposes. For Medicare only, by signing this I certify the plan of care. Please let me know if there are questions or concerns regarding this plan of care. Physician Signature: Date:
--- NOTE | 2025-05-19 17:10 | HP.PTEVAL3 ---
Patient's Visit Information Visit Information Visit Information: GABRIEL WADE is a 55 year old F referred to Physical Therapy by Dr. Domonique Hoang DO with a diagnosis of . Date of Evaluation: Physical Therapist: Bunny Sosa, PT, ATC Anticipated Interventions text: Thank you for the opportunity to evaluate your patient. For Medicare and Medicare HMO plans, please review the plan of care and approve it. It will need to be FAXED BACK to us at [phone] for Medicare purposes. For Medicare only, by signing this I certify the plan of care. Please let me know if there are questions or concerns regarding this plan of care. Physician Signature: Date:
--- NOTE | 2025-06-09 10:03 | OTREVAL_ITS ---
Re-Evaluation Intro: Dr. Domonique Hoang, DO, It has been my pleasure to treat GABRIEL WADE over the last 17 visits for right radial head fx. Please see the progress note below for an update on the occupational therapy plan of care! 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 therapy is using modalities to decrease soft tissue tightness. we have also transitioned pt in PRE to assist pt in reaching max. rehab. potential. pt would benefit from further skilled therapy services 2-3x week for 4 weeks to return pt to her PLOF. Plan Plan Frequency: 2-3x /Week Duration: 4 Weeks Visits in this POC: 24 Plan: cont to guide pt with light AROM ex for right elbow flexion- ext and forearm supination Goals Goals Patient Goals: Regain Mobility, Decrease Pain, Use Hand/Wrist/Arm Normally Again and Be More Independent in ADLS Goal:ROM equal to unaffected hand: Yes Goal:Electrical And Instrumentation Manager/Pinch strength at least 75% of unaffected hand: Yes Goal:No pain with affected hand use: Yes Goal:Full use of affected hand in daily activities including work: Yes Anticipated Interventions Anticipated Interventions Anticipated Interventions: A/AAROM/PROM, Strengthening, Edema Control, Modalities, Orthoses, Joint Protection/Energy Conservation, Ergonomic Education, Education re assistive Equipment, Education re Diagnosis and Home Program Re-Evaluation Ending Re-evaluation ending: Please do not hesitate to contact me at [phone] by phone or if you have questions or concerns regarding this new plan of care! Sincerely, Elisa Mortensen, LOTUSR/L, CHT
--- NOTE | 2025-06-20 13:16 | HP.PTREVAL ---
Re-Evaluation Intro: Dr. Domonique Hoang, DO, It has been my pleasure to treat GABRIEL WADE over the last 14 visits for L knee condral fracture. Please see the progress note below for an update on the physical therapy plan of care! Subjective Subjective: I am getting a lot better, But I still get pain and i feel weak. Objective Objective/Function: L knee pain 0-2/10 L knee ROM: 0-115 degrees L knee MMT: flex= 18, ext= 18 #F sit to stands: 9 reps in 30 sec Pt is making progress in all aspects but still lacks functional strength for transfers and stair negotiation Plan Plan Plan: 06/20/25- Continue with aquatic therapy consisting of L LE stretching, strengthening, and core stab ex's. Add R shoulder rotator cuff strengthening and scap stab ex's Balance/Gait/Functional tests Balance/Special Test Scores Lower Extremity Functional Score: 47 Goals Goals Goal 1:: Decrease L knee pain x 50% to aid with ambulation Goal Time Frame: 4-6 Weeks Goal Progress: Progressing Goal 2:: Increase L knee ROM x 20 degrees to aid with restoring a more normalized gait pattern Goal Time Frame: 4-6 Weeks Goal Progress: Goal Met Goal 3:: Increase L knee strength to equal 90% of R knee strength to aid with stair negotiation Goal Time Frame: 4-6 Weeks Goal Progress: Progressing Goal 4:: Pt will perform 10 sit to stands in 30 seconds to aid with transfer efficiency Goal Time Frame: 4-6 Weeks Goal Progress: Progressing Goal 5:: I with HEP Goal Time Frame: 4-6 Weeks Goal Progress: Progressing Goal 6:: Decrease R shoulder pain x 50% to aid with sleep Goal Time Frame: 4-6 Weeks Goal Progress: New goal Anticipated Interventions Anticipated Interventions Patient/Client Instruction: Educate patient on: Condition and Plan of Care For the Purpose of:: To improve self management Therapeutic Exercise to Include: Strength training, Endurance training, Balance training, Flexibilty training, Gait and locomotor training, In an aquatic setting, Active ROM and Dynamic Lumbar Stabilization For the Purpose of:: To decrease pain, To increase ROM and To increase oxygenation perfusion Re-Evaluation Ending Re-evaluation ending: Please do not hesitate to contact me at [phone] by phone or if you have questions or concerns regarding this new plan of care! Sincerely, Bunny Sosa, PT, ATC
--- NOTE | 2025-07-16 10:02 | HP.OTDCSUM_ITS ---
Discharge Summary D/C Summary: It has been my pleasure to treat GABRIEL WADE under orders from Dr. Domonique Hoang DO, for the diagnosis of right radial head fx for a total of 28 visit(s). Please see the following information for a summary of their discharge status. 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 pt has met OT goals and is d/c at this time. pt has started working out with gym equipment and will continue with PT for her left knee. Goals Patient Goals: Regain Mobility, Decrease Pain, Use Hand/Wrist/Arm Normally Again and Be More Independent in ADLS Goal:ROM equal to unaffected hand: Yes Goal Progress: Progressing Goal:Sas Developer/Pinch strength at least 75% of unaffected hand: Yes Goal:No pain with affected hand use: Yes Goal Progress: Goal Met Goal:Full use of affected hand in daily activities including work: Yes Goal Progress: Goal Met Plan Plan: D/C D/C Information Discharge Comments: pt has met OT goals and is now d/c . pt will cont. with PT for her left knee. Pt also has started a health and wellness ex. program. pt agrees with d/c d/c sentence: If there are questions or concerns regarding this patient's occupational therapy, please fell free to call me at [phone]. Thank you for the referral of this patient. Sincerely, Elisa Mortensen, OTR/L, CHT
--- NOTE | 2025-07-21 12:52 | HP.PTREVAL ---
Re-Evaluation Intro: Dr. Domonique Hoang, DO, It has been my pleasure to treat GABRIEL WADE over the last 27 visits for L knee condral fracture. Please see the progress note below for an update on the physical therapy plan of care! Subjective Subjective: Pt reports she is getting better. Pain still ranging from 0-3/10. Stairs are very difficult which she has to use multiple times per day. Objective Objective/Function: L knee pain ranges from 0-3/10 and limits patients ability to negotiate stairs R shoulder pain ranges from 0-2/10 L knee MMT: flex= 31, ext= 37 #F L knee ROM: 0-5-123 degrees sit to stands 11 reps in 30 sec. Plan Plan Plan: 07/21/25- Transition to land therapy consisting of L LE stretching, strengthening, and core stab ex's. Add R shoulder rotator cuff strengthening and scap stab ex's. New goal of negotiating 10 stairs reciprocally with 1 handrail assist. Balance/Gait/Functional tests Balance/Special Test Scores Lower Extremity Functional Score: 47 Goals Goals Goal 1:: Decrease L knee pain x 50% to aid with ambulation Goal Time Frame: 4-6 Weeks Goal Progress: Progressing Goal 2:: Increase L knee ROM x 20 degrees to aid with restoring a more normalized gait pattern Goal Time Frame: 4-6 Weeks Goal Progress: Progressing Goal 3:: Increase L knee strength to equal 90% of R knee strength to aid with stair negotiation Goal Time Frame: 4-6 Weeks Goal Progress: Progressing Goal 4:: Pt will perform 10 sit to stands in 30 seconds to aid with transfer efficiency Goal Time Frame: 4-6 Weeks Goal Progress: Goal Met Goal 5:: I with HEP Goal Time Frame: 4-6 Weeks Goal Progress: Progressing Goal 6:: Decrease R shoulder pain x 50% to aid with sleep Goal Time Frame: 4-6 Weeks Goal Progress: Progressing Anticipated Interventions Anticipated Interventions Patient/Client Instruction: Educate patient on: Condition and Plan of Care For the Purpose of:: To improve self management Therapeutic Exercise to Include: Strength training, Endurance training, Balance training, Flexibilty training, Gait and locomotor training, In an aquatic setting, Active ROM and Dynamic Lumbar Stabilization For the Purpose of:: To decrease pain, To increase ROM and To increase oxygenation perfusion Re-Evaluation Ending Re-evaluation ending: Please do not hesitate to contact me at [phone] by phone or if you have questions or concerns regarding this new plan of care! Sincerely, Bunny Sosa, PT, ATC
--- NOTE | 2025-08-22 08:03 | HP.PTDCSUM ---
Discharge Summary D/C summary: It has been my pleasure to treat GABRIEL WADE referred by Dr. Domonique Hoang DO, with the diagnosis of L knee condral fracture for a total of 34 visit(s). Discharge Date: Please see the following information for a summary of their discharge status. Subjective Subjective: Pt reports she is still not able to join exercise classes or run at this time. Pain L knee: Pain Intensity (Out of 10): 1 RUE: Pain Intensity (Out of 10): 0 R knee: Pain Intensity (Out of 10): 0 Left Ankle/Foot: Pain Intensity (Out of 10): 2 L LB: Pain Intensity (Out of 10): 1 Overall Improvement % Improvement: 75 Objective Objective/Function: L knee pain 1/10 pain currently, 3/10 at worst knee ROM: L knee 0-3-120 degrees ; R knee 0-128 degrees L knee MMT: flex= 34(R= 40), ext= 23(L= 51) #F Pt is not making progress at this time. Goals Goal 1:: Decrease L knee pain x 50% to aid with ambulation Goal Progress: Goal Met Goal 2:: Increase L knee ROM x 20 degrees to aid with restoring a more normalized gait pattern Goal Progress: Goal Met Goal 3:: Increase L knee strength to equal 90% of R knee strength to aid with stair negotiation Goal Progress: Progressing Goal 4:: Pt will perform 10 sit to stands in 30 seconds to aid with transfer efficiency Goal Progress: Goal Met Goal 5:: I with HEP Goal Progress: Goal Met Goal 6:: Decrease R shoulder pain x 50% to aid with sleep Goal Progress: Progressing Plan Plan: Discontinue, return to doctor D/C Information d/c sentence: If there are questions or concerns regarding this patient's physical therapy, please feel free to call me at [phone]. Thank you for the referral of this patient. Sincerely, Bunny Sosa, PT, ATC Balance/Gait/Functional tests Balance/Special Test Scores Lower Extremity Functional Score: 47 Improvement % Improvement: 75
== END 2025-08-22 19:00 | disposition home or self-care (01) ==
LOC: PT 07:00
PROVIDERS: PCP Family Medicine; Referring Provider Orthopaedic Surgery; Visit Provider Orthopaedic Surgery
DX: S52.121D Displaced fracture of head of right radius, subsequent encounter for closed fracture with routine healing (principal)
CPT/HCPCS: 97035; 97110; 97113; 97140; 97161; 97166; 97530

== ENCOUNTER → 2025-09-02 | Outpatient (CLI) | payer OTHER, SELFPAY ==
--- NOTE | 2025-09-02 09:56 | VDLE_ITS ---
Reason For Study Reason For Study: LLE PAIN RIGHT LEFT CFV is compressible, spontaneous, phasic, competent GSV is normal. and demonstrates normal augmentation. CFV is compressible, spontaneous, phasic, competent, Procedure and demonstrates normal augmentation. This is a venous duplex using B-mode, color flow and FV is compressible, spontaneous, phasic, competent spectral Doppler. and demonstrates normal augmentation. Exam performed in department. POP V is compressible, spontaneous, phasic, competent A preliminary report was called and/or faxed to and demonstrates normal augmentation. Nan @ 10:50am @ [phone]. T/P Trunk is compressible. PTV is compressible. LT PerV is compressible. VL/Venous Duplex US, Unilateral Interpretation Summary Deep veins of the left lower extremity are patent and compressible segmentally. There is no evidence of left lower extremity deep vein thrombosis. Valvular competence appears intact within the p roximal deep venous system on the left . The left great saphenous vein appears patent and compressible segmentally. The right common femoral vein is patent and compressible . Ordering Physician: Chikis Montana Referring Physician: Chikis Montana Performed By: Marisol Hurley, JENNIFER, RVT
== END | disposition home or self-care (01) ==
LOC: CVS 09:55
PROVIDERS: PCP Family Medicine; Referring Provider Family Medicine; Visit Provider Family Medicine
DX: I82.402 Acute embolism and thrombosis of unspecified deep veins of left lower extremity (principal)
CPT/HCPCS: 93971